=== PATIENT | female | born 1950 | race Caucasian/White ===

== ENCOUNTER 2016-12-06 15:44 | Emergency (ER) | payer BC ==
[~2016-12-06] VITALS: Ht 167.6 cm; Wt 136.1 kg
[~2016-12-06 15:44] MED LIST: AMLO10TA2; CELE100C84; LEVO50TA6; OMEP20CA12; PIOG30TA26; TRIA1CAP4
--- OUTSIDE RECORDS SUMMARY | 2016-12-06 15:49 | XMS REPORT | Continuity of Care Document ---
Demographics Preferred Language Unknown Marital Status Unknown Zoroastrian Affiliation Unknown Race Unknown Ethnic Group Unknown Author Author [facility] Organization [facility] Address Unknown Phone Unavailable Allergies Active Description Code Type Severity Reaction Onset Reported/Identified Relationship to Patient Clinical Status Yes MYRTLE Inhibitors [id number] Drug Allergy Unknown N/A 06/16/2015 Yes Beta-Blockers (Beta-Adrenergic Bloc [id number] Drug Allergy Unknown N/A 06/16/2015 Yes EYE DROPS EYE DROPS Unknown N/A 06/16/2015 Yes floxacillin [id number] Drug Allergy Unknown N/A 06/16/2015 Yes potassium chloride [id number] Drug Allergy Unknown N/A 06/16/2015 Yes Scbtjgc-Ydv-Byu Reductase Inhibitor [id number] Drug Allergy Unknown N/A 06/16/2015 Medications Problems Date Dx Coded Attending Type Code Diagnosis Diagnosed By 06/16/2015 JESUS GONZALEZ, SHIRA Santoro Ot 250.00 06/16/2015 SHIRA LEE MD Ot V58.69 Procedures Results Encounters ACCT No. Visit Date/Time Discharge Status Pt. Type Provider Facility Loc./Unit Complaint [id number] 10/05/2013 19:45:00 2013 23:59:59 CLS Outpatient
[2016-12-06 16:34] LABS: BILIRUBIN,URINE NEGATIVE (NEGATIVE); KETONES,URINE NEGATIVE (NEGATIVE); LEUKOCYTE ESTERASE ,URINE 1+ (NEGATIVE); NITRITE,URINE NEGATIVE (NEGATIVE); PH,URINE 6 (5-9); PROTEIN,URINE NEGATIVE (NEGATIVE); UROBILINOGEN,URINE NORMAL (NORMAL)
[2016-12-06 16:35] LABS: BASOPHILS % (AUTO) 1 % (0-10); EOSINOPHILS # (AUTO) 0.1 10^3/uL (0.0-0.3); EOSINOPHILS % (AUTO) 1 % (0-10); LYMPHOCYTES # (AUTO) 1.6 X 10^3 (1.0-4.0); LYMPHOCYTES % (AUTO) 27 % (12-44); MEAN CORPUSCULAR HEMOGLOBIN 32 PG (25-34); MEAN CORPUSCULAR HGB CONC 33 G/DL (32-36); MEAN CORPUSCULAR VOLUME 95 FL (80-99); MEAN PLATELET VOLUME 10.3 FL (7.4-10.4); MONOCYTES # (AUTO) 0.4 X 10^3 (0.0-1.0); MONOCYTES % (AUTO) 8 % (0-12); NEUTROPHILS # (AUTO) 3.7 X 10^3 (1.8-7.8); NEUTROPHILS % (AUTO) 63 % (42-75); PLATELET COUNT 196 10^3/uL (130-400); RED CELL DISTRIBUTION WIDTH 13.3 % (10.0-14.5); WHITE BLOOD COUNT 5.8 10^3/uL (4.3-11.0)
[2016-12-06] MEDS ORDERED: LIDOCAINE 1% INJ 20 ML (XYLOCAINE) VIAL ONE (16:47)
[2016-12-06 16:50] LABS: SQUAMOUS EPITHELIAL CELL,UR 0-2 /HPF; WBC,URINE 0-2 /HPF
[2016-12-06 16:53] LABS: ALANINE AMINOTRANSFERASE 42 U/L (0-55); ALBUMIN 3.8 G/DL (3.2-4.5); ANION GAP 13 MMOL/L (5-14); ASPARTATE AMINO TRANSFERASE 33 U/L (5-34); BILIRUBIN,TOTAL 0.7 MG/DL (0.1-1.0); BLOOD UREA NITROGEN 10 MG/DL (7-18); BUN/CREATININE RATIO 13; CALCIUM 9.4 MG/DL (8.5-10.1); CARBON DIOXIDE 20 MMOL/L (21-32); CHLORIDE 103 MMOL/L (98-107); CREATININE SERUM 0.75 MG/DL (0.60-1.30); GFR ESTIMATED > 60; GLUCOSE 224 MG/DL (70-105); POTASSIUM 3.6 MMOL/L (3.6-5.0); SODIUM 136 MMOL/L (135-145); TOTAL PROTEIN 6.9 G/DL (6.4-8.2)
[2016-12-06 16:59] LABS: TROPONIN I < 0.30 NG/ML (<0.30)
[2016-12-06] MEDS ORDERED: SULF1TAB35 PO (17:12)
--- NOTE | 2016-12-06 17:12 | ED General ---
General Chief Complaint: Cardiac/General Problems Stated Complaint: DIZZINESS,POSSIBLE STAPH INFECTION Nursing Triage Note: PT CO OF PALPATIONS LAST NITE W CHEST FLUTTERING, NONE NOW,DENIES C/P. STATES HAS ABCESS ON BACK OF NECK FOR 2 YEARS Nursing Sepsis Screen: No Definite Risk Source of Information: Patient Exam Limitations: No Limitations History of Present Illness Time Seen by Provider: 17:08 Initial Comments To ER with reports of palpitations that began last night while standing in her kitchen. She felt as though her chest was fluttering. She denies chest pain or shortness of breath. She also reports that she's had a lump on the back of her neck but intermittently drains fluid. This is been the case about 2 years. She does not have a regular physician here, she sees a physician in [facility] every 6 months to refill her diabetic medications where she is formerly from. Timing/Duration: Intermittent Severity: Moderate Associated Systoms: Denies Symptoms Allergies and Home Medications Allergies Coded Allergies: MYRTLE Inhibitors (Unverified Allergy, Unknown, 06/16/15) Beta-Blockers (Beta-Adrenergic Bloc (Unverified Allergy, Unknown, 06/16/15) Hoflxqf-Hpl-Iyg Reductase Inhibitor (Unverified Allergy, Unknown, 06/16/15) floxacillin (Unverified Allergy, Unknown, 06/16/15) potassium chloride (Unverified Allergy, Unknown, 06/16/15) Uncoded Allergies: EYE DROPS (Allergy, Unknown, 06/16/15) Home Medications Amlodipine Besylate 10 Mg Tablet #90 (Reported) Celecoxib 100 Mg Capsule #180 (Reported) Levothyroxine Sodium 50 Mcg Tablet #90 (Reported) Omeprazole 20 Mg Capsule.dr #90 (Reported) Pioglitazone HCl 30 Mg Tablet #90 (Reported) Sulfamethoxazole/Trimethoprim 1 Each Tablet #14 1 EACH PO BID Prescribed by: BHAVNA MALIN on 12/06/16 1712 Triamterene/Hydrochlorothiazid 1 Each Capsule #90 (Reported) Constitutional: see HPI EENTM: see HPI Respiratory: no symptoms reported Cardiovascular: no symptoms reported Genitourinary: no symptoms reported Musculoskeletal: no symptoms reported Skin: no symptoms reported Psychiatric/Neurological: No Symptoms Reported Hematologic/Lymphatic: No Symptoms Reported Past Okrvwph-Xuduan-Jztdkb Hx Patient Social History Alcohol Use: Denies Use Recreational Drug Use: No Smoking Status: Never a Smoker Recent Foreign Travel: No Contact w/Someone Who Travel: No Recent Infectious Disease Expo: No Recent Hopitalizations: No Surgeries HX Surgeries: Yes (lypoma(toe, thigh, neck)) Surgeries: Appendectomy, Breast, Eye Surgery, Gallbladder, Hysterectomy, Orthopedic Respiratory Hx Respiratory Disorders: Yes Respiratory Disorders: Sleep Apnea Cardiovascular Hx Cardiac Disorders: Yes Cardiac Disorders: High Cholesterol, Hypertension Neurological Hx Neurological Disorders: No Reproductive System Hx 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 Genitourinary Hx Genitourinary Disorders: No Gastrointestinal Hx Gastrointestinal Disorders: Yes Gastrointestinal Disorders: Gastroesophageal Reflux Musculoskeletal Hx Musculoskeletal Disorders: No Endocrine Hx Endocrine Disorders: Yes Endocrine Disorders: Hypothyroidsim, Diabetes, Non-Insulin dep HEENT HX ENT Disorders: Yes HEENT Disorders: Cataract Cancer Hx Cancer: No Psychosocial Hx Psychiatric Problems: No Integumentary HX Skin/Integumentary Disorder: No Blood Transfusions Hx Blood Disorders: No Physical Exam Vital Signs Vital Sign - Last 12Hours 12/06/16 15:50 Temp 97.0 Pulse 88 Resp 20 B/P 181/93 Pulse Ox 96 Capillary Refill : Less Than 3 Seconds General Appearance: No Apparent Distress WD/WN Eyes: Bilateral Eye EOMI, Bilateral Eye Normal Inspection, Bilateral Eye PERRL HEENT: PERRL/EOMI TMs Normal Other (there is a mobile slightly inflamed marble -sized or slightly smaller nodule to the back of the neck that is expressing cottage cheese thick material when palpated.) Respiratory: No Accessory Muscle Use No Respiratory Distress Cardiovascular: Regular Rate, Rhythm Normal Peripheral Pulses Gastrointestinal: Non Tender Soft Extremity: Normal Capillary Refill Normal Inspection Neurologic/Psychiatric: Alert Oriented x3 No Motor/Sensory Deficits Skin: Normal Color Warm/Dry I&D : Progress Area cleaned with Betadine to the back of the neck. This was then anesthetized with 3 mL of 1 percent lidocaine without epinephrine. A horizontal incision was made almost a centimeter in length using a 15 blade scalpel. Blunt dissection down to the cyst. Curd-like material expressed. Cyst wall was removed with curved hemostats. Wound closed with one simple interrupted suture. Progress/Results/Core Measures Results/Orders Lab Results Laboratory Tests Test 12/06/16 16:15 Range/Units Alanine Aminotransferase (ALT/SGPT) 42 0-55 U/L Albumin 3.8 3.2-4.5 G/DL Alkaline Phosphatase 64 40-136 U/L Anion Gap 13 5-14 MMOL/L Aspartate Amino Transf (AST/SGOT) 33 5-34 U/L BUN/Creatinine Ratio 13 Basophils # (Auto) 0.0 0.0-0.1 10^3/uL Basophils (%) (Auto) 1 0-10 % Blood Urea Nitrogen 10 7-18 MG/DL Calcium Level 9.4 8.5-10.1 MG/DL Carbon Dioxide Level 20 L 21-32 MMOL/L Chloride Level 103 98-107 MMOL/L Creatinine 0.75 0.60-1.30 MG/DL Eosinophils # (Auto) 0.1 0.0-0.3 10^3/uL Eosinophils (%) (Auto) 1 0-10 % Estimat Glomerular Filtration Rate > 60 Glucose Level 224 H 70-105 MG/DL Hematocrit 43 35-52 % Hemoglobin 14.3 11.5-16.0 G/DL Lymphocytes # (Auto) 1.6 1.0-4.0 X 10^3 Lymphocytes (%) (Auto) 27 12-44 % Mean Corpuscular Hemoglobin 32 25-34 PG Mean Corpuscular Hemoglobin Concent 33 32-36 G/DL Mean Corpuscular Volume 95 80-99 FL Mean Platelet Volume 10.3 7.4-10.4 FL Monocytes # (Auto) 0.4 0.0-1.0 X 10^3 Monocytes (%) (Auto) 8 0-12 % Neutrophils # (Auto) 3.7 1.8-7.8 X 10^3 Neutrophils (%) (Auto) 63 42-75 % Platelet Count 196 130-400 10^3/uL Potassium Level 3.6 3.6-5.0 MMOL/L Red Blood Count 4.50 4.35-5.85 10^6/uL Red Cell Distribution Width 13.3 10.0-14.5 % Sodium Level 136 135-145 MMOL/L Thyroid Stimulating Hormone (TSH) 1.21 0.35-4.94 UIU/ML Total Bilirubin 0.7 0.1-1.0 MG/DL Total Protein 6.9 6.4-8.2 G/DL Troponin I < 0.30 <0.30 NG/ML Urine Bacteria NONE /HPF Urine Bilirubin NEGATIVE NEGATIVE Urine Casts NONE /LPF Urine Clarity CLEAR Urine Color YELLOW Urine Crystals NONE /LPF Urine Culture Indicated NO Urine Glucose (UA) NEGATIVE NEGATIVE Urine Ketones NEGATIVE NEGATIVE Urine Leukocyte Esterase 1+ H NEGATIVE Urine Mucus NEGATIVE /LPF Urine Nitrite NEGATIVE NEGATIVE Urine Protein NEGATIVE NEGATIVE Urine RBC NONE /HPF Urine RBC (Auto) NEGATIVE NEGATIVE Urine Specific [place] 1.015 L 1.016-1.022 Urine Squamous Epithelial Cells 0-2 /HPF Urine Urobilinogen NORMAL NORMAL MG/DL Urine WBC 0-2 /HPF Urine pH 6 5-9 White Blood Count 5.8 4.3-11.0 10^3/uL My Orders Orders-BHAVNA MALIN APRN Lidocaine 1% Injection (Xylocaine 1% Inj (12/06/16 16:47) Medications Given in ED Current Medications Medications Dose Ordered Sig/Ana Route Start Time Stop Time Status Last Admin Dose Admin Lidocaine HCl 20 ml STK-MED ONCE .ROUTE 12/06/16 16:47 12/06/16 16:49 DC 12/06/16 16:51 10 ML Vital Signs/I&O Vital Sign - Last 12Hours 12/06/16 12/06/16 15:50 17:35 Temp 97.0 Pulse 88 72 Resp 20 20 B/P 181/93 Pulse Ox 96 96 Blood Pressure Mean: 122 Departure Communication Progress Notes Patient also states that she has a nasal polyp and she would like to see an ear nose and throat physician for this. Impression Impression: Primary Impression: Sebaceous cyst Additional Impression: Palpitations Disposition: 01 HOME, SELF-CARE Condition: Stable Departure-Patient Inst. Decision time for Depature: 17:11 Referrals: HERMELINDO ROSE MD NO,LOCAL PHYSICIAN (PCP) Primary Care Physician Patient Instructions: Palpitations, SEBACEOUS CYST-I&D Add. Discharge Instructions: 1. Have the stitches removed the back your neck in 7 days. You may return here to the emergency room 2. Antibiotics as directed 3. Follow-up with a physician of your choosing to further evaluate the cause of your palpitations if you have him again. List provided for you. All discharge instructions reviewed with patient and/or family. Voiced understanding. Scripts Sulfamethoxazole/Trimethoprim (Bactrim Ds Tablet)1 Each Tablet1 Each PO BID #14 TAB Prov:BHAVNA MALIN APRN 12/06/16 BHAVNA MALIN APRN Dec 06, 2016 17:12
[2016-12-06 17:35] VITALS: BP 145/81
== END 2016-12-06 17:36 | disposition home or self-care (01) ==
LOC: EDUNIT# 15:44 → ER 15:46
DX: R00.2 Palpitations (principal); L72.3 Sebaceous cyst; E11.9 Type 2 diabetes mellitus without complications; I10 Essential (primary) hypertension; Z79.84 Long term (current) use of oral hypoglycemic drugs; Z79.899 Other long term (current) drug therapy
CPT/HCPCS: 10060; 36415; 80053; 81000; 84443; 84484; 85025; 93005

== ENCOUNTER 2016-12-14 17:06 | Emergency (ER) | payer BC ==
[~2016-12-14] VITALS: Ht 170.2 cm; Wt 90.7 kg
[~2016-12-14 17:06] MED LIST changes: +SULF1TAB35 PO
--- OUTSIDE RECORDS SUMMARY | 2016-12-14 17:10 | XMS REPORT | Continuity of Care Document ---
Demographics Preferred Language Unknown Marital Status Unknown Yarsani Affiliation Unknown Race Unknown Ethnic Group Unknown Author Author [facility] Organization [facility] Address Unknown Phone Unavailable Allergies Active Description Code Type Severity Reaction Onset Reported/Identified Relationship to Patient Clinical Status Yes MYRTLE Inhibitors [id number] Drug Allergy Unknown N/A 06/16/2015 Yes Beta-Blockers (Beta-Adrenergic Bloc [id number] Drug Allergy Unknown N/A 06/16/2015 Yes EYE DROPS EYE DROPS Unknown N/A 06/16/2015 Yes floxacillin [id number] Drug Allergy Unknown N/A 06/16/2015 Yes potassium chloride [id number] Drug Allergy Unknown N/A 06/16/2015 Yes Ngungrr-Mff-Hbc Reductase Inhibitor [id number] Drug Allergy Unknown N/A 06/16/2015 Medications Problems Date Dx Coded Attending Type Code Diagnosis Diagnosed By 06/16/2015 SHIRA LEE MD Ot 250.00 06/16/2015 SHIRA LEE MD Ot V58.69 12/07/2016 BHAVNA MALIN APRN Ot E11.9 TYPE 2 DIABETES MELLITUS WITHOUT COMPLIC 12/07/2016 BHAVNA MALIN APRN Ot I10 ESSENTIAL (PRIMARY) HYPERTENSION 12/07/2016 BHAVNA MALIN APRN Ot L72.3 SEBACEOUS CYST 12/07/2016 BHAVNA MALIN APRN Ot R00.2 PALPITATIONS 12/07/2016 BHAVNA MALIN APRN Ot Z79.84 FDC (CURRENT) USE OF ORAL HYPOGLYC 12/07/2016 BHAVNA MALIN APRN Ot 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 12/08/2016 BHAVNA MALIN APRN Ot E11.9 TYPE 2 DIABETES MELLITUS WITHOUT COMPLIC 12/08/2016 BHAVNA MALIN APRN Ot I10 ESSENTIAL (PRIMARY) HYPERTENSION 12/08/2016 BHAVNA MALIN APRN Ot L72.3 SEBACEOUS CYST 12/08/2016 BHAVNA MALIN APRN Ot R00.2 PALPITATIONS 12/08/2016 BHAVNA MALIN APRN Ot Z79.84 [facility] (CURRENT) USE OF ORAL HYPOGLYC 12/08/2016 BHAVNA MALIN COLOR STRAINER Ot Z79.899 OTHER [facility] (CURRENT) DRUG THERAPY Procedures Results Test Result Range Complete blood count (CBC) with automated white blood cell (WBC) differential - 12/06/16 16:15 Blood leukocytes automated count (number/volume) 5.8 10*3/ uL 4.3-11.0 Blood erythrocytes automated count (number/volume) 4.50 10*6 /uL 4.35-5.85 Venous blood hemoglobin measurement (mass/volume) 14.3 g/dL 11.5-16.0 Blood hematocrit (volume fraction) 43 % 35-52 Automated erythrocyte mean corpuscular volume 95 [foz_us] 80-99 Automated erythrocyte mean corpuscular hemoglobin (mass per erythrocyte) 32 pg 25-34 Automated erythrocyte mean corpuscular hemoglobin concentration measurement ( mass/volume) 33 g/dL 32-36 Automated erythrocyte distribution width ratio 13.3 % 10.0-14.5 Automated blood platelet count (count/volume) 196 10*3/uL 130-400 Automated blood platelet mean volume measurement 10.3 [foz_ us] 7.4-10.4 Automated blood neutrophils/100 leukocytes 63 % 42-75 Automated blood lymphocytes/100 leukocytes 27 % 12-44 Blood monocytes/100 leukocytes 8 % 0-12 Automated blood eosinophils/100 leukocytes 1 % 0-10 Automated blood basophils/100 leukocytes 1 % 0-10 Blood neutrophils automated count (number/volume) 3.7 10*3 1.8-7.8 Blood lymphocytes automated count (number/volume) 1.6 10*3 1.0-4.0 Blood monocytes automated count (number/volume) 0.4 10*3 0.0-1.0 Automated eosinophil count 0.1 10*3/uL 0.0-0.3 Automated blood basophil count (count/volume) 0.0 10*3/uL 0.0-0.1 Complete urinalysis with reflex to culture - 12/06/16 16:15 Urine color determination YELLOW NRG Urine clarity determination CLEAR NRG Urine pH measurement by test strip 6 5- 9 Specific gravity of urine by test strip 1.015 1.016-1.022 Urine protein assay by test strip, semi-quantitative NEGATIVE NEGATIVE Urine glucose detection by automated test strip NEGATIVE NEGATIVE Erythrocytes detection in urine sediment by light microscopy NEGATIVE NEGATIVE Urine ketones detection by automated test strip NEGATIVE NEGATIVE Urine nitrite detection by test strip NEGATIVE NEGATIVE Urine total bilirubin detection by test strip NEGATIVE NEGATIVE Urine urobilinogen measurement by automated test strip (mass/volume) NORMAL NORMAL Urine leukocyte esterase detection by dipstick 1+ NEGATIVE Automated urine sediment erythrocyte count by microscopy (number/high power field) NONE NRG Automated urine sediment leukocyte count by microscopy (number/high power field ) [HPF] NRG Bacteria detection in urine sediment by light microscopy NONE NRG Squamous epithelial cells detection in urine sediment by light microscopy 0-2 NRG Crystals detection in urine sediment by light microscopy NONE NRG Casts detection in urine sediment by light microscopy NONE NRG Mucus detection in urine sediment by light microscopy NEGATIVE NRG Complete urinalysis with reflex to culture NO NRG Comprehensive metabolic panel - 12/06/16 16:15 Serum or plasma sodium measurement (moles/volume) 136 mmol/ L 135-145 Serum or plasma potassium measurement (moles/volume) 3.6 mmol/L 3.6-5.0 Serum or plasma chloride measurement (moles/volume) 103 mmol /L 98-107 Carbon dioxide 20 mmol/L 21-32 Serum or plasma anion gap determination (moles/volume) 13 mmol/L 5-14 Serum or plasma urea nitrogen measurement (mass/volume) 10 mg/dL 7-18 Serum or plasma creatinine measurement (mass/volume) 0.75 mg /dL 0.60-1.30 Serum or plasma urea nitrogen/creatinine mass ratio 13 NRG Serum or plasma creatinine measurement with calculation of estimated glomerular filtration rate > NRG Serum or plasma glucose measurement (mass/volume) 224 mg/dL 70-105 Serum or plasma calcium measurement (mass/volume) 9.4 mg/dL 8.5-10.1 Serum or plasma total bilirubin measurement (mass/volume) 0.7 mg/dL 0.1-1.0 Serum or plasma alkaline phosphatase measurement (enzymatic activity/volume) 64 U/L 40-136 Serum or plasma aspartate aminotransferase measurement (enzymatic activity/ volume) 33 U/L 5-34 Serum or plasma alanine aminotransferase measurement (enzymatic activity/volume ) 42 U/L 0-55 Serum or plasma protein measurement (mass/volume) 6.9 g/dL 6.4-8.2 Serum or plasma albumin measurement (mass/volume) 3.8 g/dL 3.2-4.5 Serum or plasma troponin i.cardiac measurement (mass/volume) - 12/06/16 16:15 Serum or plasma troponin i.cardiac measurement (mass/volume) < ng/mL <0.30 THYROID STIMULATING HORMONE - 12/06/16 16:15 THYROID STIMULATING HORMONE 1.21 u[iU]/mL 0.35-4.94 Encounters ACCT No. Visit Date/Time Discharge Status Pt. Type Provider Facility Loc./Unit Complaint [id number] 10/05/2013 19:45:00 2013 23:59:59 CLS Outpatient
== END 2016-12-14 17:23 | disposition home or self-care (01) ==
LOC: EDUNIT# 17:06 → ER 17:07
DX: S11.91XD Laceration without foreign body of unspecified part of neck, subsequent encounter (principal)

== ENCOUNTER 2017-03-12 19:17 | Emergency (ER) | payer MEDICARE, BC ==
[~2017-03-12] VITALS: Ht 167.6 cm; Wt 133.8 kg
--- NOTE | 2017-03-12 21:04 | ED Integumentary General ---
General Chief Complaint: Skin/Wound Problems Stated Complaint: R MID CALF SPIDER BITE Nursing Triage Note: PT TO ED 10 W/ C/O POSS SPIDER BITE TO RLE ONSET YESTERDAY, WORSE TODAY. REPORTS SHE WAS MOWING AT HER MOTHERS HOME ET SHE HAS A LOT OF SPIDERS. NO OTHER C/O VOICED Source: patient Exam Limitations: no limitations History of Present Illness Time seen by provider: 21:04 Initial Comments 66-year-old female patient presents to the emergency department complains of a possible spider bite to the right lower extremity beginning yesterday. Today she reports increased itching, mild pain, and erythema. States she was weed eating yesterday. Timing/Duration: yesterday, getting worse Location: extremities (RLE) Possible Cause: insect bite (possible spider bite) Modifying Factors: worse with scratching Allergies and Home Medications Allergies Coded Allergies: MYRTLE Inhibitors (Unverified Allergy, Unknown, 06/16/15) Beta-Blockers (Beta-Adrenergic Bloc (Unverified Allergy, Unknown, 06/16/15) Wzxwwya-Xgm-Hpp Reductase Inhibitor (Unverified Allergy, Unknown, 06/16/15) floxacillin (Unverified Allergy, Unknown, 06/16/15) potassium chloride (Unverified Allergy, Unknown, 06/16/15) Uncoded Allergies: EYE DROPS (Allergy, Unknown, 06/16/15) Home Medications Amlodipine Besylate 10 Mg Tablet, #90 (Reported) Celecoxib 100 Mg Capsule, #180 (Reported) Levothyroxine Sodium 50 Mcg Tablet, #90 (Reported) Omeprazole 20 Mg Capsule., #90 (Reported) Pioglitazone HCl 30 Mg Tablet, #90 (Reported) Sulfamethoxazole/Trimethoprim 1 Each Tablet, 1 EACH PO BID, #14 Prescribed by: BHAVNA MALIN on 12/06/16 1712 Triamterene/Hydrochlorothiazid 1 Each Capsule, #90 (Reported) Constitutional: No fever, No malaise EENTM: no symptoms reported Respiratory: no symptoms reported Cardiovascular: no symptoms reported Gastrointestinal: no symptoms reported Skin: see HPI, lesions Psychiatric/Neurological: Denies Headache, Denies Numbness, Denies Paresthesia , Denies Tingling, Denies Weakness All Other Systems Reviewed Negative Unless Noted: Yes (Negative excepted noted.) Past Rgeryuw-Rjfkoq-Dbadxs Hx Patient Social History Alcohol Use: Denies Use Recreational Drug Use: No Smoking Status: Never a Smoker Recent Foreign Travel: No Contact w/Someone Who Travel: No Recent Infectious Disease Expo: No Recent Hopitalizations: No Immunizations Up To Date Tetanus Booster (TDap): More than 5yrs Surgeries HX Surgeries: Yes (lypoma(toe, thigh, neck)) Surgeries: Appendectomy, Breast, Eye Surgery, Gallbladder, Hysterectomy, Orthopedic Respiratory Hx Respiratory Disorders: Yes Respiratory Disorders: Sleep Apnea Cardiovascular Hx Cardiac Disorders: Yes Cardiac Disorders: High Cholesterol, Hypertension Neurological Hx Neurological Disorders: No Reproductive System 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 Genitourinary Hx Genitourinary Disorders: No Gastrointestinal Hx Gastrointestinal Disorders: Yes Gastrointestinal Disorders: Gastroesophageal Reflux Musculoskeletal Hx Musculoskeletal Disorders: No Endocrine Hx Endocrine Disorders: Yes Endocrine Disorders: Hypothyroidsim, Diabetes, Non-Insulin dep HEENT HX ENT Disorders: Yes HEENT Disorders: Cataract Cancer Hx Cancer: No Psychosocial Hx Psychiatric Problems: No Integumentary HX Skin/Integumentary Disorder: No Blood Transfusions Hx Blood Disorders: No Reviewed Nursing Assessment Reviewed/Agree w Nursing PMH: Yes Family Medical History Significant Family History: No Pertinent Family Hx Physical Exam Vital Signs Vital Sign - Last 12Hours 03/12/17 19:56 Temp 97.6 Pulse 86 Resp 20 B/P (MAP) 190/90 Pulse Ox 94 O2 Delivery Room Air Capillary Refill : Less Than 3 Seconds General Appearance: WD/WN, no apparent distress Cardiovascular: normal peripheral pulses, regular rate, rhythm, no edema, no murmur Respiratory: lungs clear, normal breath sounds, no respiratory distress Neurologic/Psychiatric: alert, normal mood/affect, oriented x 3 Skin: normal color, warm/dry, other (erythema with central puncture wound, petechiae, and mild warmth of the rt lower lateral leg) Skin Problem Location: lower extremities (rt lower extremity) Skin Problem Character: erythema, petechial, tenderness, warm Progress/Results/Core Measures Results/Orders Vital Signs/I&O Vital Sign - Last 12Hours 03/12/17 19:56 Temp 97.6 Pulse 86 Resp 20 B/P (MAP) 190/90 Pulse Ox 94 O2 Delivery Room Air Blood Pressure Mean: 123 Departure Impression Impression: Primary Impression: Cellulitis Qualified Codes: L03.115 - Cellulitis of right lower limb Additional Impression: Spider bite Qualified Codes: T63.301A - Toxic effect of unspecified spider venom, accidental (unintentional), initial encounter Disposition: 01 HOME, SELF-CARE Condition: Improved Departure-Patient Inst. Decision time for Depature: 21:21 Referrals: NO,LOCAL PHYSICIAN (PCP/Family) Primary Care Physician Patient Instructions: Cellulitis (Skin Infection), Adult (DC), Spider Bites Add. Discharge Instructions: All discharge instructions reviewed with patient and/or family. Voiced understanding. Medications as instructed. Tylenol extra strength over-the- counter as directed for pain. Ibuprofen 800 mg by mouth every 8 hours as needed for pain. Ice pack or heating pad as needed. Shower with antibacterial soap. Elevate the right lower extremity on pillows above the level of the heart. Follow-up with your family practitioner for recheck this week. Call for appointment time tomorrow morning. Return to the emergency department for worsened pain, redness, fever, drainage, or any other concerns. Scripts Sulfamethoxazole/Trimethoprim (Bactrim Ds Tablet) 1 Each Tablet 1 EACH PO BID, #14 TAB 0 Refills Prov: DAVID DAIGLE 03/12/17 Dapsone (Dapsone) 25 Mg Tablet 50 MG PO BID, #20 TAB 0 Refills Prov: DAVID DAIGLE 03/12/17 Famotidine (Pepcid) 20 Mg Tablet 20 MG PO BID, #20 TAB 0 Refills Prov: DAVID DAIGLE 03/12/17 DAVID DAIGLE Mar 12, 2017 21:04
[2017-03-12] MEDS ORDERED: TETANUS,DIPTH,PERTUSS P/F (BOOSTRIX) 0.5 ML VIAL IM STA (21:17)
[2017-03-12] MEDS ORDERED: RX-TRIMETH/SULFA. 160-800 MG (BACTRIM DS) TAB PPK#2 PO STA (21:17)
[2017-03-12] MEDS ORDERED: FAMO-119 PO (21:23)
[2017-03-12] MEDS ORDERED: DAPS25TA2 PO (21:23)
[2017-03-12] MEDS ORDERED: SULF1TAB35 PO (21:23)
[2017-03-12 21:39] VITALS: BP 185/96
== END 2017-03-12 21:41 | disposition home or self-care (01) ==
LOC: EDUNIT# 19:17 → ER 19:18
DX: L03.115 Cellulitis of right lower limb (principal); I10 Essential (primary) hypertension; E11.9 Type 2 diabetes mellitus without complications; W57.XXXA Bitten or stung by nonvenomous insect and other nonvenomous arthropods, initial encounter; Y92.009 Unspecified place in unspecified non-institutional (private) residence as the place of occurrence of the external cause
CPT/HCPCS: 90715; 99282

== ENCOUNTER 2018-11-29 06:03 | Inpatient (IN) | payer MEDICARE, BC ==
[~2018-11-29] VITALS: Ht 167.6 cm; Wt 139.8 kg
[2018-11-29] VITALS (13 sets, daily range): BP systolic 152–178; BP diastolic 64–89
[~2018-11-29 06:03] MED LIST changes: -AMLO10TA2; +AMLO10TA7 PO; -CELE100C84; +CELE100C84 PO; +DAPS25TA2 PO; +FAMO-119 PO; -LEVO50TA6; +LEVO50TA6 PO; -OMEP20CA12; +OMEP20CA12 PO; -PIOG30TA26; +PIOG30TA71 PO; -TRIA1CAP4; +TRIA1CAP4 PO
--- OUTSIDE RECORDS SUMMARY | 2018-11-29 06:09 | XMS REPORT | Continuity of Care Document ---
Author Author [facility] Organization [facility] Address Unknown Phone Unavailable Allergies Active Description Code Type Severity Reaction Onset Reported/Identified Relationship to Patient Clinical Status Yes MYRTLE Inhibitors [id number] Drug Allergy Unknown N/A 06/16/2015 Yes Beta-Blockers (Beta-Adrenergic Bloc [id number] Drug Allergy Unknown N/A Yes EYE DROPS EYE DROPS Unknown N/A 06/16/2015 Yes floxacillin [id number] Drug Allergy Unknown N/A 06/16/2015 Yes potassium chloride [id number] Drug Allergy Unknown N/A 06/16/2015 Yes Xyhgixf-Rwh-Bdb Reductase Inhibitor [id number] Drug Allergy Unknown N/A Medications There is no data. Problems Date Dx Coded Attending Type Code Diagnosis Diagnosed By 06/16/2015 SHIRA LEE MD Ot 250.00 DIAB FIDELIA WO COMPL, TYPE II OR UNSPEC TY 06/16/2015 SHIRA LEE MD Ot V58.69 OT MED,LT,CURRENT USE 12/06/2016 BHAVNA MALIN APRN Ot E11.9 TYPE 2 DIABETES MELLITUS WITHOUT COMPLIC 12/06/2016 BHAVNA MALIN APRN Ot I10 ESSENTIAL (PRIMARY) HYPERTENSION 12/06/2016 BHAVNA MALIN APRN Ot L72.3 SEBACEOUS CYST 12/06/2016 BHAVNA MALIN APRN Ot R00.2 PALPITATIONS 12/06/2016 BHAVNA MALIN APRN Ot Z79.84 DETENTION (CURRENT) USE OF ORAL HYPOGLYC 12/06/2016 BHAVNA MALIN APRN Ot Z79.899 OTHER DETENTION (CURRENT) DRUG THERAPY 12/07/2016 BHAVNA MALIN APRN Ot E11.9 TYPE 2 DIABETES MELLITUS WITHOUT COMPLIC 12/07/2016 BHAVNA MALIN APRN Ot I10 ESSENTIAL (PRIMARY) HYPERTENSION 12/07/2016 BHAVNA MALIN APRN Ot L72.3 SEBACEOUS CYST 12/07/2016 MALIN, PETER J ENROBING MACHINE FEEDER Ot R00.2 PALPITATIONS 12/07/2016 BHAVNA MALIN ENROBING MACHINE FEEDER Ot Z79.84 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 OF ORAL HYPOGLYC 12/07/2016 BHAVNA MALIN ENROBING MACHINE FEEDER Ot Z79.899 OTHER DETENTION (CURRENT) DRUG THERAPY 12/08/2016 BHAVNA MALIN APRN Ot E11.9 TYPE 2 DIABETES MELLITUS WITHOUT COMPLIC 12/08/2016 BHAVNA MALIN APRN Ot I10 ESSENTIAL (PRIMARY) HYPERTENSION 12/08/2016 BHAVNA MALIN APRN Ot L72.3 SEBACEOUS CYST 12/08/2016 BHAVNA MALIN APRN Ot R00.2 PALPITATIONS 12/08/2016 BHAVNA MALIN APRN Ot Z79.84 PHYSICIAN OFFICE 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 OF ORAL HYPOGLYC 12/08/2016 BHAVNA MALIN APRN Ot Z79.899 OTHER DETENTION (CURRENT) DRUG THERAPY 12/14/2016 VIKASH GONZALEZ, KITA T Ot S11.91XD LACERATION W/O FOREIGN BODY OF UNSP PART 12/15/2016 VIKASH GONZALEZ, KITA T Ot S11.91XD LACERATION W/O FOREIGN BODY OF UNSP PART 12/16/2016 VIKASH GONZALEZ, KITA T Ot S11.91XD LACERATION W/O FOREIGN BODY OF UNSP PART 12/20/2016 VIKASH GONZALEZ, KITA T Ot S11.91XD LACERATION W/O FOREIGN BODY OF UNSP PART 02/14/2017 BHAVNA MALIN APRN Ot E11.9 TYPE 2 DIABETES MELLITUS WITHOUT COMPLIC 02/14/2017 BHAVNA MALIN APRN Ot I10 ESSENTIAL (PRIMARY) HYPERTENSION 02/14/2017 BHAVNA MALIN APRN Ot L72.3 SEBACEOUS CYST 02/14/2017 BHAVNA MALIN ENROBING MACHINE FEEDER Ot R00.2 PALPITATIONS 02/14/2017 BHAVNA MALIN ENROBING MACHINE FEEDER Ot Z79.84 DETENTION (CURRENT) USE OF ORAL HYPOGLYC 02/14/2017 BHAVNA MALIN ENROBING MACHINE FEEDER Ot Z79.899 OTHER PHYSICIAN OFFICE SPECIALIST (CURRENT) DRUG THERAPY 03/12/2017 DAVID BUENO Ot E11.9 TYPE 2 DIABETES MELLITUS WITHOUT COMPLIC 03/12/2017 DAVID BUENO Ot I10 ESSENTIAL (PRIMARY) HYPERTENSION 03/12/2017 DAVID BUENO Ot L03.115 CELLULITIS OF RIGHT LOWER LIMB 03/12/2017 DAVID BUENO Ot M79.661 PAIN IN RIGHT LOWER LEG 03/12/2017 DAVID BUENO Ot W57.XXXA BIT/STUNG BY NONVENOM INSECT OTH NONVE 03/12/2017 DAVID BUENO Ot Y92.[address] IN [facility] NON[facility] (PRIVATE Procedures There is no data. Results Test Result Range Complete blood count (CBC) with automated white blood cell (WBC) differential - 12/06/16 16:15 Blood leukocytes automated count (number/volume) 5.8 10*3/uL 4.3-11.0 Blood erythrocytes automated count (number/volume) 4.50 10*6/uL 4.35-5.85 Venous blood hemoglobin measurement (mass/volume) 14.3 [...] Automated blood platelet mean volume measurement 10.3 [foz_us] 7.4-10.4 Automated blood neutrophils/100 leukocytes 63 % [...] Urine pH measurement by test strip 6 5-9 Specific gravity of urine by test strip 1.015 1.016- 1.022 Urine protein assay by test strip, semi-quantitative [...] Serum or plasma sodium measurement (moles/volume) 136 mmol/L 135-145 Serum or plasma potassium measurement (moles/volume) 3.6 mmol/L 3.6-5.0 Serum or plasma chloride measurement (moles/volume) 103 mmol/L 98-107 Carbon dioxide 20 mmol/L 21-32 Serum or plasma anion gap determination (moles/volume) 13 mmol/L 5-14 Serum or plasma urea nitrogen measurement (mass/volume) 10 mg/dL 7-18 Serum or plasma creatinine measurement (mass/volume) 0.75 mg/dL 0.60-1.30 Serum or plasma urea nitrogen/creatinine mass [...] or plasma troponin i.cardiac measurement (mass/volume) < ng/ mL <0.30 THYROID STIMULATING HORMONE - 12/06/16 16:15 THYROID STIMULATING HORMONE 1.21 u[iU]/mL 0.35-4.94 Encounters ACCT No. Visit Date/Time Discharge Status Pt. Type Provider Facility Loc./Unit Complaint [id number] 03/12/2017 19:18:00 03/12/2017 21:41:00 DIS Emergency DAVID BUENO [facility] ER R MID CALF SPIDER BITE [id number] 12/14/2016 17:07:00 12/14/2016 17:23:00 DIS Emergency VIKASH GONZALEZ, KITA Fuentes [facility] ER REMOVAL OF STITCHES [id number] 12/06/2016 15:46:00 12/06/2016 17:36:00 DIS Emergency BHAVNA MALIN APRN [facility] ER DIZZINESS,POSSIBLE STAPH INFECTION [id number] 06/16/2015 19:05:00 06/16/2015 19:43:00 DIS Emergency SHIRA LEE MD [facility] ER ELEVATED BLOOD SUGAR [id number] 10/05/2013 19:24:00 10/05/2013 23:59:59 CLS Outpatient [id number] 11/29/2018 06:04:00 ACT Emergency LAURA LIND DO [facility] ER WEAKNESS [id number] 10/05/2013 19:45:00 10/05/2013 23:59:59 CLS Outpatient
[2018-11-29 06:40] LABS: BASOPHILS % (AUTO) 1 % (0-10); EOSINOPHILS # (AUTO) 0.1 10^3/uL (0.0-0.3); EOSINOPHILS % (AUTO) 2 % (0-10); HEMATOCRIT 41 % (35-52); HEMOGLOBIN 13.6 G/DL (11.5-16.0); LYMPHOCYTES # (AUTO) 1.8 X 10^3 (1.0-4.0); LYMPHOCYTES % (AUTO) 23 % (12-44); MEAN CORPUSCULAR HEMOGLOBIN 31 PG (25-34); MEAN CORPUSCULAR HGB CONC 33 G/DL (32-36); MEAN CORPUSCULAR VOLUME 95 FL (80-99); MEAN PLATELET VOLUME 10.5 FL (7.4-10.4); MONOCYTES # (AUTO) 0.5 X 10^3 (0.0-1.0); MONOCYTES % (AUTO) 7 % (0-12); NEUTROPHILS # (AUTO) 5.3 X 10^3 (1.8-7.8); NEUTROPHILS % (AUTO) 69 % (42-75); PLATELET COUNT 231 10^3/uL (130-400); RED CELL DISTRIBUTION WIDTH 13.9 % (10.0-14.5); WHITE BLOOD COUNT 7.8 10^3/uL (4.3-11.0)
[2018-11-29 06:48] LABS: FIBRIN DEGRADATION PRODUCTS 0.54 UG/ML (0.00-0.49); INR 0.9 (0.8-1.4); PROTHROMBIN TIME PATIENT 12.3 SEC (12.2-14.7)
[2018-11-29 06:58] LABS: ALANINE AMINOTRANSFERASE 39 U/L (0-55); ALBUMIN 4.2 GM/DL (3.2-4.5); ALKALINE PHOSPHATASE 75 U/L (40-136); BILIRUBIN,TOTAL 0.5 MG/DL (0.1-1.0); BUN/CREATININE RATIO 19; CALCIUM 9.9 MG/DL (8.5-10.1); CARBON DIOXIDE 21 MMOL/L (21-32); CHLORIDE 99 MMOL/L (98-107); CREATININE SERUM 0.93 MG/DL (0.60-1.30); GFR ESTIMATED 60; GLUCOSE 251 MG/DL (70-105); POTASSIUM 3.5 MMOL/L (3.6-5.0); SODIUM 136 MMOL/L (135-145); TOTAL PROTEIN 7.7 GM/DL (6.4-8.2)
[2018-11-29 07:12] LABS: FREE T4 (FREE THYROXINE) 1.25 NG/DL (0.70-1.48)
--- NOTE | 2018-11-29 07:39 | Diagnostic Imaging Report ---
PROCEDURE: CT head wo r/o stroke. INDICATION: Left weakness CT HEAD: Multiple contiguous axial CT images of the head were obtained. FINDINGS: Ventricles and sulci are within normal limits for size. There is no intracranial hemorrhage identified. There is no abnormal mass effect or shift of midline structures. IMPRESSION: Unremarkable CT of the head. Dictated by: Dictated on workstation # [id number]
[2018-11-29 08:00] LABS: BILIRUBIN,URINE NEGATIVE (NEGATIVE); CLARITY,URINE CLEAR; COLOR,URINE YELLOW; GLUCOSE, URINE (UA) 2+ (NEGATIVE); KETONES,URINE NEGATIVE (NEGATIVE); LEUKOCYTE ESTERASE ,URINE NEGATIVE (NEGATIVE); NITRITE,URINE NEGATIVE (NEGATIVE); PH,URINE 5 (5-9); PROTEIN,URINE NEGATIVE (NEGATIVE); UROBILINOGEN,URINE NORMAL (NORMAL)
[2018-11-29 08:06] LABS: BACTERIA,URINE NEGATIVE /HPF; SQUAMOUS EPITHELIAL CELL,UR RARE /HPF
--- NOTE | 2018-11-29 08:12 | Diagnostic Imaging Report ---
PROCEDURE: CT angiography of the head and CT angiography of the neck with and without contrast. TECHNIQUE: Contiguous noncontrast images were obtained from the skull base through the vertex. After intravenous contrast administration, helical CT angiography of the neck was performed. Source data was reformatted into multiple MIP projections. Delayed post contrast acquisition was also obtained. INDICATION: Left weakness, cerebrovascular accident. CTA NECK: There is a normal three-vessel branching pattern arising from the aortic arch without evidence of great vessel stenosis in the upper mediastinum. Common carotid arteries are widely patent. There is mild atherosclerotic disease at the carotid bifurcations. Internal carotid arteries are also widely patent but tortuous in the neck. Evaluation of vertebral arteries is limited due to suboptimal opacification. No definite filling defect or occlusion is identified. IMPRESSION: Suboptimal visualization of the great vessels in the neck without evidence of stenosis or occlusion. There is tortuosity and moderate atherosclerotic disease involving the internal carotid arteries. CTA HEAD: There is good opacification of anterior and middle cerebral arteries. The basilar artery has a normal appearance. Both posterior cerebral arteries are patent. There does appear to be possible attenuation of the distal right posterior cerebral artery. Incidental note is made of an approximately 1.2 cm probable meningioma in the medial right anterior frontal region which demonstrates homogeneous enhancement. Otherwise, no enhancing lesion is identified. IMPRESSION: Attenuation of distal right posterior cerebral artery may be related to atherosclerotic disease and stenosis, however, no definite large vessel occlusion, filling defect, aneurysm or vascular malformation is identified. Dictated by: Dictated on workstation # [id number]
--- NOTE | 2018-11-29 08:12 | Diagnostic Imaging Report ---
EXAMINATION: CT head perfusion with contrast. INDICATION: Left-sided weakness Routine images using the CT head perfusion protocol were obtained. The CT head exam performed earlier today failed to show any sign of an acute intracranial abnormality. On this study there is no sign of abnormal perfusion of the brain. There is an area of altered blood flow along the posterior aspect of the right occipital lobe. This of uncertain etiology although unlikely to be related to significant perfusion defect. IMPRESSION: 1. There is no altered perfusion within the brain. 2. CTA of the head and neck is pending for further study. Dictated on workstation # [id number]
--- NOTE | 2018-11-29 08:18 | ED Neurological Problem ---
General Chief Complaint: Neuro-Stroke Like Symptoms Stated Complaint: WEAKNESS Nursing Triage Note: TO ED VIA EMS WITH C/O DIZZINESS STARTING AT APPROX 0315 THIS AM WHEN WOKE UP AND STATES SHE HAD ONLY BEEN ASLEEP SINCE 0215. SAT UP ON SIDE OF BED TO GET UP TO THE BATHROOM AND FELT DIZZY, VERY DIZZY ON WAY TO BATHROOM USING WALL SUPPORT. DENIES BEING SICK RECENTLY, STATES SHE HAS BEEN HOT AND COLD AT TIMES, ALWAYS HAS DIARRHEA, BUT MORE FREQUENTLY LATELY. Nursing Sepsis Screen: No Definite Risk Source: patient Exam Limitations: no limitations History of Present Illness Date Seen by Provider: Nov 29, 2018 Time Seen by Provider: 06:04 Initial Comments This 68-year-old woman presents to the emergency room via EMS with complaints of left-sided weakness and dizziness. She woke at about 03:15 with these symptoms and had a difficult time getting to the bathroom. She can ambulate independently but is unsteady due to weakness in the left leg. Last known well time was 02:15 when patient went to sleep. The [place] stroke screening by EMS was negative. Stroke activation was paged. Patient had an NIH stroke score of 2 due to left lower extremity weakness. 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 However, this did not score out on the NIH stroke score. EMS states fingerstick blood sugar was 252. Patient denies any prior history of stroke. She is not anticoagulated. Allergies and Home Medications Allergies Coded Allergies: cinnamon (Verified Allergy, Severe, 11/29/18) DIFFICULTY BREATHING, ASTHMA ATTACK PER PATIENT MYRTLE Inhibitors (Unverified Allergy, Unknown, 06/16/15) Beta-Blockers (Beta-Adrenergic Bloc (Unverified Allergy, Unknown, 06/16/15) Ghbuqnz-Ixr-Tot Reductase Inhibitor (Unverified Allergy, Unknown, 06/16/15) floxacillin (Unverified Allergy, Unknown, 06/16/15) potassium chloride (Unverified Allergy, Unknown, 06/16/15) Uncoded Allergies: EYE DROPS (Allergy, Unknown, 06/16/15) Home Medications Acetaminophen 500 Mg Tablet, 1,000 MG PO BID, (Reported) TAKES 2 (500MG) TABLETS Amlodipine Besylate 10 Mg Tablet, 10 MG PO DAILY, (Reported) Celecoxib 100 Mg Capsule, 100 MG PO BID, (Reported) Hydrocodone/Acetaminophen 1 Each Tablet, 1 TAB PO Q6H PRN for PAIN-MODERATE, ( Reported) Levothyroxine Sodium 50 Mcg Tablet, 50 MCG PO DAILY, (Reported) Omeprazole 20 Mg Capsule.dr, 20 MG PO DAILY, (Reported) Pioglitazone HCl 30 Mg Tablet, 30 MG PO DAILY, (Reported) Pioglitazone HCl 30 Mg Tablet, 15 MG PO HS, (Reported) TAKES 1/2 (30MG) TABLET Triamterene/Hydrochlorothiazid 1 Each Capsule, 1 CAP PO DAILY, (Reported) Patient Home Medication List Home Medication List Reviewed: Yes Review of Systems Review of Systems Constitutional: no symptoms reported Eyes: No Symptoms Reported Ears, Nose, Mouth, Throat: no symptoms reported Respiratory: no symptoms reported Cardiovascular: no symptoms reported Gastrointestinal: no symptoms reported Genitourinary: no symptoms reported : No Musculoskeletal: no symptoms reported Skin: no symptoms reported Psychiatric/Neurological: See HPI Endocrine: No Symptoms Reported Hematologic/Lymphatic: No Symptoms Reported Past Soltuag-Pjoqiz-Uqdlaj Hx Past Med/Social Hx: Reviewed Nursing Past Med/Soc Hx Patient Social History Alcohol Use: Denies Use Recreational Drug Use: No Smoking Status: Never a Smoker Recent Foreign Travel: No Contact w/Someone Who Travel: No Recent Infectious Disease Expo: No Recent Hopitalizations: No Physical Abuse: No Sexual Abuse: No Mistreated: No Fear: No Immunizations Up To Date Tetanus Booster (TDap): More than 5yrs Past Medical History Surgeries: Yes (lypoma(toe, thigh, neck), SPHINCTERECTOMY) Appendectomy, Breast, Eye Surgery, Gallbladder, Hysterectomy, Orthopedic Respiratory: Yes Sleep Apnea Currently Using CPAP: Yes Cardiac: Yes High Cholesterol, Hypertension Neurological: No 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 oz. 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 nml as tested, alert, normal mood/affect, oriented x 3 Crainal Nerves: normal hearing, normal speech, PERRL Coordination/Gait: normal finger to nose, abnormal gait (short shuffled gait) Motor/Sensory: no sensory deficit, weak motor strength LUE (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 but can move the limb against gravity), weak motor strength LLE ( minimal movement against gravity of the left lower extremity) Skin: normal color, warm/dry Stroke NIH Stroke Scale Assessment Level of Consciousness: 0=Alert (0), Level of Consciousness-Questions: 0= Answers both month/age (0), LOC Commands: 0=Performs both tasks (0), Visual Proctor: 0=No visual loss (0), Facial Movement (Facial Paresis): 0=Normal symmetrical mnt (0), Motor Function-Arms Right: 0=No drift (0), Motor Function- Arms Left: 0=No drift (0), Motor Function-Legs Right: 2=Some effort/gravity (2) , Motor Function-Legs Left: 0=No drift (0), Limb Ataxia: 0=Absent (0), Sensory: 0=Normal:no loss (0), Best Language: 0=No aphasia (0), Dysarthria: 0=Normal (0) , Extinction & Inattention: 0=No abnormality (0), Total: 2 Progress/Results/Core Measures Results/Orders Lab Results Laboratory Tests Test 11/29/18 06:10 11/29/18 07:53 Range/Units White Blood Count 7.8 4.3-11.0 10^3/uL Red Blood Count 4.34 L 4.35-5.85 10^6/uL Hemoglobin 13.6 11.5-16.0 G/DL Hematocrit 41 35-52 % Mean Corpuscular Volume 95 80-99 FL Mean Corpuscular Hemoglobin 31 25-34 PG Mean Corpuscular Hemoglobin Concent 33 32-36 G/DL Red Cell Distribution Width 13.9 10.0-14.5 % Platelet Count 231 130-400 10^3/uL Mean Platelet Volume 10.5 H 7.4-10.4 FL Neutrophils (%) (Auto) 69 42-75 % Lymphocytes (%) (Auto) 23 12-44 % Monocytes (%) (Auto) 7 0-12 % Eosinophils (%) (Auto) 2 0-10 % Basophils (%) (Auto) 1 0-10 % Neutrophils # (Auto) 5.3 1.8-7.8 X 10^3 Lymphocytes # (Auto) 1.8 1.0-4.0 X 10^3 Monocytes # (Auto) 0.5 0.0-1.0 X 10^3 Eosinophils # (Auto) 0.1 0.0-0.3 10^3/uL Basophils # (Auto) 0.0 0.0-0.1 10^3/uL Prothrombin Time 12.3 12.2-14.7 SEC INR Comment 0.9 0.8-1.4 Activated Partial Thromboplast Time 28 24-35 SEC D-Dimer 0.54 H 0.00-0.49 UG/ML Sodium Level 136 135-145 MMOL/L Potassium Level 3.5 L 3.6-5.0 MMOL/L Chloride Level 99 98-107 MMOL/L Carbon Dioxide Level 21 21-32 MMOL/L Anion Gap 16 H 5-14 MMOL/L Blood Urea Nitrogen 18 7-18 MG/DL Creatinine 0.93 0.60-1.30 MG/DL Estimat Glomerular Filtration Rate 60 BUN/Creatinine Ratio 19 Glucose Level 251 H 70-105 MG/DL Calcium Level 9.9 8.5-10.1 MG/DL Corrected Calcium 9.7 8.5-10.1 MG/DL Total Bilirubin 0.5 0.1-1.0 MG/DL Aspartate Amino Transf (AST/SGOT) 28 5-34 U/L Alanine Aminotransferase (ALT/SGPT) 39 0-55 U/L Alkaline Phosphatase 75 40-136 U/L Troponin I < 0.028 <0.028 NG/ML Total Protein 7.7 6.4-8.2 GM/DL Albumin 4.2 3.2-4.5 GM/DL Thyroid Stimulating Hormone (TSH) 1.24 0.35-4.94 UIU/ML Free Thyroxine 1.25 0.70-1.48 NG/DL Urine Color YELLOW Urine Clarity CLEAR Urine pH 5 5-9 Urine Specific [place] 1.005 L 1.016-1.022 Urine Protein NEGATIVE NEGATIVE Urine Glucose (UA) 2+ H NEGATIVE Urine Ketones NEGATIVE NEGATIVE Urine Nitrite NEGATIVE NEGATIVE Urine Bilirubin NEGATIVE NEGATIVE Urine Urobilinogen NORMAL NORMAL MG/DL Urine Leukocyte Esterase NEGATIVE NEGATIVE Urine RBC (Auto) NEGATIVE NEGATIVE Urine RBC NONE /HPF Urine WBC NONE /HPF Urine Squamous Epithelial Cells RARE /HPF Urine Crystals NONE /LPF Urine Bacteria NEGATIVE /HPF Urine Casts NONE /LPF Urine Mucus NEGATIVE /LPF Urine Culture Indicated NO My Orders Orders - KITA SUH MD Cbc With Automated Diff (11/29/18 06:31) Protime With Inr (11/29/18 06:31) Partial Thromboplastin Time (11/29/18 06:31) Comprehensive Metabolic Panel (11/29/18 06:31) Fibrin Degradation Products (11/29/18 06:31) Troponin I (11/29/18 06:31) Ua Culture If Indicated (11/29/18 06:31) Chest 1 View, Ap/Pa Only (11/29/18 06:31) Ekg Tracing (11/29/18 06:31) Nothing By Mouth (11/29/18 Lunch) Accucheck Stat ONCE (11/29/18 06:31) Saline Lock/Iv-Start (11/29/18 06:31) Saline Lock/Iv-Start (11/29/18 06:31) Vital Signs Stroke Patient Q15M (11/29/18 06:31) Ct Head Wo-R/O Stroke (11/29/18 06:31) O2 (11/29/18 06:31) Intake & Output 06,14,22 (11/29/18 06:31) Monitor-Rhythm Ecg Trace Only (11/29/18 06:31) Dysphagia Screening Tool (11/29/18 06:31) Post Thrombolytic Adminstratio (11/29/18 06:31) Lipid Panel (11/30/18 06:00) Thyroid Stimulating Hormone (11/29/18 06:37) Free T4 (Free Thyroxine) (11/29/18 06:37) Ct Angio Head/Neck (11/29/18 06:44) Ct Head Perfusion W/ Contrast (11/29/18 06:44) Aspirin Tablet (Aspirin Tablet) (11/29/18 09:15) Medications Given in ED Current Medications Medications Dose Ordered Sig/Ana Route Start Time Stop Time Status Last Admin Dose Admin Aspirin 325 mg ONCE ONCE PO 11/29/18 09:15 11/29/18 09:16 DC 11/29/18 09:20 325 MG Vital Signs/I&O 11/29/18 06:03 Temp 99.8 Pulse 92 Resp 19 B/P (MAP) 180/99 (126) Blood Pressure Mean: 126 iStat Bedside Lab Testing Sodium (Na): 138.00 Potassium (K): 3.40 Chloride (CI): 100.00 TCO2: 27.00 Glucose (Glu): 255.00 Urea Nitrogen (BUN)/Urea: 19.00 Creatinine (Crea): 0.60 Anion Gap*: 15.00 FSBG Bedside Testing Finger Stick Blood Glucose: 255 Progress Progress Note #1: Time: 08:13 Progress Note Stroke activation was paged after initial assessment. NIH stroke score was 2 because of left leg weakness. I did have the patient get up and walk. She was able to ambulate and bear weight. She did use this provider for support with balance. Because patient was ambulating, the patient and I both had significant reservations about using TPA. I explained the risk and benefits of TPA including a possible risk up to 6 percent of potentially life-threatening bleed. We ultimately decided against TPA because of her ability to ambulate and the risk of complications. Patient also was nearing her 4.5 hour time limit for TPA administration. The stroke workup was pursued further with CT angiogram and CT perfusion scan. An i-STAT measurement of creatinine was 0.6. The CT studies were discussed with the radiologist at 07:58. There was concern for hypoperfusion in the right SITE SAFETY COORDINATOR. However, the CT perfusion scan demonstrated no measurable mismatch. Case was discussed with Dr. Feldman, stroke neurologist at [facility], who agreed there was no reason for transfer as this patient is not an IR candidate based on the CT perfusion scan results. We will pursue admission to the hospital to complete her workup with echocardiogram and MRI. She will be given aspirin if she passes her dysphagia screen. Progress Note #2: Time: 09:50 Progress Note Unfortunately patient's left upper extremity weakness has progressed. She now has significantly reduced function and has difficulty moving the left arm against gravity. Patient passed the dysphagia screen and was given aspirin. Case was reviewed with Dr. Santana who agrees with admission. She has asked for MRI and 2-D echocardiogram. Patient will be admitted to the ICU with stroke house orders. Transfer to the ICU is being delayed as post procedural patients are being moved out of the ICU. Initial ECG Impression Date: Nov 29, 2018 Initial ECG Impression Time: 07:52 Initial ECG Rate: 100 Initial ECG Rhythm: S.Tach Comment Sinus tachycardia with no ST elevation or depression. LVH by automated read with secondary repolarization abnormality. Diagnostic Imaging Diagonstic Imaging: CT Plain Films/CT/US/NM/MRI: head Comments CT head viewed by me and report reviewed. Discussed with the radiologist. See report below: NAME: NATALI AGUIAR REC#: [id number] PT STATUS: REG ER : 1950 PHYSICIAN: KITA SUH MD ADMIT DATE: 11/29/18/ER Signed Date of Exam: 11/29/18 CT HEAD WO-R/O STROKE PROCEDURE: CT head wo r/o stroke. INDICATION: Left weakness CT HEAD: Multiple contiguous axial CT images of the head were obtained. FINDINGS: Ventricles and sulci are within normal limits for size. There is no intracranial hemorrhage identified. There is no abnormal mass effect or shift of midline structures. IMPRESSION: Unremarkable CT of the head. Dictated by: Dictated on workstation # [id number] Dict: 11/29/1837 Trans: 11/29/18740 Interpreted by: BROOKLYN HARRIS MD Electronically signed by: BROOKLYN HARRIS MD 11/29/18740 Diagonstic Imaging: CT Plain Films/CT/US/NM/MRI: other (angiogram head and neck) Comments CT angiogram head and neck report reviewed. Discussed with the radiologist. See report below: NAME: NATALI AGUIAR [facility] REC#: [id number] PT STATUS: REG ER : 1950 PHYSICIAN: KITA SUH MD ADMIT DATE: 11/29/18/ER Draft Date of Exam:11/29/18 CT ANGIO HEAD/NECK PROCEDURE: CT angiography of the head and CT angiography of the neck with and without contrast. TECHNIQUE: Contiguous noncontrast images were obtained from the skull base through the vertex. After intravenous contrast administration, helical CT angiography of the neck was performed. Source data was reformatted into multiple MIP projections. Delayed post contrast acquisition was also obtained. INDICATION: Left weakness, cerebrovascular accident. CTA NECK: There is a normal three-vessel branching pattern arising from the aortic arch without evidence of great vessel stenosis in the upper mediastinum. Common carotid arteries are widely patent. There is mild atherosclerotic disease at the carotid bifurcations. Internal carotid arteries are also widely patent but tortuous in the neck. Evaluation of vertebral arteries is limited due to suboptimal opacification. No definite filling defect or occlusion is identified. IMPRESSION: Suboptimal visualization of the great vessels in the neck without evidence of stenosis or occlusion. There is tortuosity and moderate atherosclerotic disease involving the internal carotid arteries. CTA HEAD: There is good opacification of anterior and middle cerebral arteries. The basilar artery has a normal appearance. Both posterior cerebral arteries are patent. There does appear to be possible attenuation of the distal right posterior cerebral artery. Incidental note is made of an approximately 1.2 cm probable meningioma in the medial right anterior frontal region which demonstrates homogeneous enhancement. Otherwise, no enhancing lesion is identified. IMPRESSION: Attenuation of distal right posterior cerebral artery may be related to atherosclerotic disease and stenosis, however, no definite large vessel occlusion, filling defect, aneurysm or vascular malformation is identified. Dictated on workstation # [id number] Dict: 11/29/18 0749 Trans: 11/29/18 0812 [facility] [id number] Interpreted by: BROOKLYN HARRIS MD Diagonstic Imaging: CT Plain Films/CT/US/NM/MRI: head (CT perfusion scan) Comments CT perfusion scan viewed by me and report reviewed. Discussed with the stroke neurologist and the radiologist. See report below: NAME: NATALI AGUIAR [facility] REC#: [id number] PT STATUS: REG ER : 1950 PHYSICIAN: KITA SUH MD ADMIT DATE: 11/29/18/ER Draft Date of Exam:11/29/18 CT HEAD PERFUSION W/ CONTRAST EXAMINATION: CT head perfusion with contrast. INDICATION: Left-sided weakness Routine images using the CT head perfusion protocol were obtained. The CT head exam performed earlier today failed to show any sign of an acute intracranial abnormality. On this study there is no sign of abnormal perfusion of the brain. There is an area of altered blood flow along the posterior aspect of the right occipital lobe. This of uncertain etiology although unlikely to be related to significant perfusion defect. IMPRESSION: 1. There is no altered perfusion within the brain. 2. CTA of the head and neck is pending for further study. Dictated on workstation # [id number] Dict: 11/29/18805 Trans: 11/29/[address] [facility] [id number] Interpreted by: SASHA MAY MD Diagonstic Imaging: Xray Plain Films/CT/US/NM/MRI: chest Comments NAME: NATALI AGUIAR [facility] REC#: [id number] PT STATUS: REG ER : 1950 PHYSICIAN: KITA SUH MD ADMIT DATE: 11/29/18/ER Draft Date of Exam:11/29/18 CHEST 1 VIEW, AP/PA ONLY CLINICAL INDICATION: Patient with dizziness since this morning and bouts of hot and cold flashes and increased diarrhea. EXAM: Portable chest x-ray upright view. COMPARISONS: None. FINDINGS: There is mild amorphous increased airspace opacities in the right inferior perihilar region which may represent atelectasis versus infiltrate. Remainder of lungs are clear. There is no pleural effusion or pneumothorax. Upper limits of normal heart size. Pulmonary vasculature is within normal limits. There are hypertrophic spurs involving the spine. IMPRESSION: 1: There is mild right inferior perihilar atelectasis versus infiltrate. Follow up chest x-ray in 2-4 weeks is suggested to evaluate for interval resolution of this finding. 2: Upper limits of normal heart size for portable projection. Dictated on workstation # [id number] Dict: 11/29/18841 Trans: 11/29/1849 [id number] Interpreted by: ALYCIA BLANDON MD Departure Impression Primary Impression: CVA (cerebral vascular accident) Qualified Codes: I63.9 - Cerebral infarction, unspecified Additional Impression: Left-sided weakness Disposition: ADMITTED INPATIENT Condition: Unchanged Admissions Decision to Admit Reason: Admit from ER (General) Decision to Admit/Date: Nov 29, 2018 Time/Decision to Admit Time: 09:05 Departure-Patient Inst. Referrals: NO,LOCAL PHYSICIAN (PCP/Family) Primary Care Physician KITA SUH MD Nov 29, 2018 08:18
--- NOTE | 2018-11-29 08:50 | Diagnostic Imaging Report ---
CLINICAL INDICATION: Patient with dizziness since this morning and bouts of hot and cold flashes and increased diarrhea. EXAM: Portable chest x-ray upright view. COMPARISONS: None. FINDINGS: There is mild amorphous increased airspace opacities in the right inferior perihilar region which may represent atelectasis versus infiltrate. Remainder of lungs are clear. There is no pleural effusion or pneumothorax. Upper limits of normal heart size. Pulmonary vasculature is within normal limits. There are hypertrophic spurs involving the spine. IMPRESSION: 1: There is mild right inferior perihilar atelectasis versus infiltrate. Follow up chest x-ray in 2-4 weeks is suggested to evaluate for interval resolution of this finding. 2: Upper limits of normal heart size for portable projection. Dictated by: Dictated on workstation # [id number]
[2018-11-29] MEDS ORDERED: ASPIRIN 325 MG (5 GR) TABLET PO ONE (09:15)
[2018-11-29] MEDS ORDERED: NS IV 1000 ML 1,000 ML ONE (11:17)
[2018-11-29] MEDS ORDERED: BISACODYL 10 MG SUPP (DULCOLAX) PR PRN (13:15)
[2018-11-29] MEDS ORDERED: niCARdipine 50 MG/NS 250 ML IV DRIP IV SCH ×2 (13:15)
[2018-11-29] MEDS ORDERED: FLU QUADRIvalent (5+ YOA) 2018-2019 (AFLURIA) 0.5 ML IM ONE (13:15)
[2018-11-29] MEDS ORDERED: MILK OF MAGNESIA 400 MG/5 ML 30 ML UDC PO PRN (13:15)
--- NOTE | 2018-11-29 13:20 | NUR ---
Pt requested prayer; offered active listening. I affirmed to her God's presence and watch care, at which point pt because tearful and shared she is trusting God through her fears. She wept during our prayer together and afterward said, "I needed that. Thank you for coming." Pt does not have connections to a javy community at this time.
[2018-11-29] MEDS ORDERED: ACET-2267 PO (13:31)
[2018-11-29] MEDS ORDERED: HYDR-3816 PO (13:31)
[2018-11-29] MEDS ORDERED: PIOG30TA71 PO (13:31)
--- NOTE | 2018-11-29 13:33 | NUR ---
WENT OVER THE EXT MED HX WITH THE PATIENT AND SHE VERIFIED HOW SHE IS TAKING EACH MEDICATION. SHE TAKES 2 EXTRA STRENGTH TYLENOL OTC BID.
--- NOTE | 2018-11-29 13:50 | History & Physical-Hospitalist ---
History of Present Illness HPI/Chief Complaint Pt is a 68yoCF with a PMH of HTN, STEPH, NIDDMII, hypothyroidism who presented to the ER due to left sided weakness and dizziness. On presentation her NIH was a 2 and her last known well at at 0215 today. She states she went to sleep at 215 and awoke at 315 with this symptoms and had significant difficulty ambulating to the bathroom. She called her daughter who advised her to call 911. On arrival here she was found to have an NIH of 2. Due to her low NIH score discussions were had regarding TPA and hte risks vs benefits and she declined. She went for CTA that revealed a right sided [employer] deficit. Dr Espinoza discussed the case with the stroke neurologist at [facility] who agreed with no TPA and as there was no large vessel occlusion so no indication for transfer. Shortly after she developed worsening symptoms. She developed left arm weakness and left leg weakness with near complete paralysis. She was well outside the window for TPA by the point. Source: patient Exam Limitations: no limitations Date Seen 11/29/18 Time Seen by a Provider: 13:44 Attending Physician Annamaria Santana MD PCP No,Local Physician Referring Physician Date of Admission Nov 29, 2018 at 09:37 Home Medications & Allergies Home Medications Reviewed patient Home Medication Reconciliation performed by pharmacy medication reconciliations dental lab technician and/or nursing. Patients Allergies have been reviewed. Allergies Allergies Coded Allergies cinnamon (Verified Allergy, Severe, 11/29/18) DIFFICULTY BREATHING, ASTHMA ATTACK PER PATIENT MYRTLE Inhibitors (Unverified Allergy, Unknown, 06/16/15) Beta-Blockers (Beta-Adrenergic Bloc (Unverified Allergy, Unknown, 06/16/15) Ohtjdjn-Fvg-Azn Reductase Inhibitor (Unverified Allergy, Unknown, 06/16/15) floxacillin (Unverified Allergy, Unknown, 06/16/15) potassium chloride (Unverified Allergy, Unknown, 06/16/15) Uncoded Allergies EYE DROPS ( Allergy, Unknown, 06/16/15) Past Hmrjtvn-Nveeuv-Welumg Hx Past Med/Social Hx: Reviewed Nursing Past Med/Soc Hx Patient Social History Alcohol Use: Denies Use Recreational Drug Use: No Smoking Status: Never a Smoker Recent Foreign Travel: No Contact w/other who traveled: No Recent Hopitalizations: No Recent Infectious Disease Expo: No Immunizations Up To Date Tetanus Booster (TDap): More than 5yrs Past Medical History Surgeries: Appendectomy, Breast, Eye Surgery, Gallbladder, Hysterectomy, Orthopedic Currently Using CPAP: Yes Cardiac: High Cholesterol, Hypertension : No Reproductive: Yes Hysterectomy Gastrointestinal: Gastroesophageal Reflux Endocrine: Hypothyroidsim, Diabetes, Non-Insulin dep HEENT: Cataract, Glaucoma History of Blood Disorders: No Family History Reviewed Nursing Family Hx No Pertinent Family Hx Review of Systems Constitutional: No chills, No fever EENTM: No blurred vision, No double vision, No nose congestion, No throat pain Respiratory: short of breath Cardiovascular: No chest pain, No edema; palpitations Gastrointestinal: No abdominal pain, No constipation, No diarrhea, No nausea, No vomiting Genitourinary: No dysuria, No frequency Musculoskeletal: No joint pain, No muscle pain Skin: No lesions, No rash Psychiatric/Neurological: See HPI Physical Exam Physical Exam Vital Signs Vital Signs - First Documented 11/29/18 11/29/18 06:03 10:52 Temp 99.8 Pulse 92 Resp 19 B/P (MAP) 180/99 (126) Pulse Ox 95 O2 Delivery Room Air Capillary Refill : Less Than 3 Seconds Height, Weight, BMI Height: 5'6.00" Weight: 300lbs. 5.0oz. 136.761110dv; 48.5 BMI Method:Stated General Appearance: No Apparent Distress, Obese Neck: Normal Inspection, Supple Respiratory: Lungs Clear, No Accessory Muscle Use, No Respiratory Distress Cardiovascular: Regular Rate, Rhythm, No JVD, No Murmur, Normal Peripheral Pulses Gastrointestinal: Normal Bowel Sounds, Non Tender, Soft Extremity: Normal Capillary Refill, No Calf Tenderness, No Pedal Edema, Other ( varicose veins noted) Neurologic/Psychiatric: Alert, Oriented x3, Normal Mood/Affect; No Aphasia, No EOM Palsy, No Facial Droop; Motor Weakness (left upper and lower extremity, sensation intact), Other (dysequilibrium with sitting edge of bed) Skin: Normal Color, Warm/Dry Results Results/Procedures Labs Laboratory Tests 11/29/18 06:10 Patient resulted labs reviewed. Imaging: Reviewed Imaging Report Assessment/Plan Admission Diagnosis Acute CVA Admission Status: Inpatient Order (span 2 midnights) Reason for Inpatient Admission: Needs MRI, PT/OT, echo, monitoring on telemetry Diagnosis/Problems Diagnosis/Problems (1) Acute right [employer] stroke Assessment & Plan: CTA reveals r W[employer] deficit MRI ordered PT/OT ordered Monitor on telemetry Echo ordered Passed dysphagia screen Lipid Profile in the AM (2) Essential (primary) hypertension Status: Chronic Assessment & Plan: Allow for permissive hypertension givne acute CVA Treat for BP >220 only (3) Non-insulin dependent type 2 diabetes mellitus Status: Chronic Assessment & Plan: SSI On Actos at home (4) Hypothyroidism Status: Chronic Assessment & Plan: Continue home supplement Qualifiers: Hypothyroidism type: unspecified Qualified Codes: E03.9 - Hypothyroidism, unspecified Clinical Quality Measures DVT/VTE Risk/Contraindication: Risk Factor Score Per Nursin RFS Level Per Nursing on Admit: 4+=Very High ANNAMARIA SANTANA MD Nov 29, 2018 13:50
[2018-11-29] MEDS: NS IV 1000 ML 1,000 ML IV SCH ×2 (13:54→19:45)
--- NOTE | 2018-11-29 14:12 | Physical Therapy Evaluation ---
PT Evaluation-General Medical Diagnosis Admission Date Nov 29, 2018 at 09:37 Medical Diagnosis: CVA, L weakness Onset Date: Nov 29, 2018 Therapy Diagnosis Therapy Diagnosis: L hemiparesis, weakness, gait deviation, decreased mobility Height/Weight Height (Feet): 5 Height (Inches): 6.00 Weight (Pounds): 300 Weight (Ounces): 5.0 Precautions Precautions/Isolations: Fall Prevention, Standard Precautions Weight Bear Status Right Lower Extremity: Right Weight Bearing/Tolerated Left Lower Extremity: Left Weight Bearing/Tolerated Referral Physician: Dr. Santana Reason for Referral: Evaluation/Treatment Medical History Pertinent Medical History: DM, GERD, HTN, Hypothroidism Current History Pt to ED via EM with c/o dizziness and L weakness Reviewed History: Yes Social History Home: Single Level Current Living Status: Alone Prior/Core FIM Prior Level of Function Therapy Code Descriptions/Definitions Functional Garrison Measure: 0=Not Assessed/NA 4=Minimal Assistance 1=Total Assistance 5=Supervision or Setup 2=Maximal Assistance 6=Modified G[place] 3=Moderate Assistance 7=Complete Garrison Therapy Quality Codes: 6 Independent with activity with or without an assistive device 5 Patient requires set up or clean up by helper. Patient completes activity by themselves 4 Supervision or touching assist (CGA). [place] provide cues , steadying assist 3 The helper provides less than half the effort to complete the activity 2 The helper provides more than half the effort to complete the activity 1 Dependent. The helper does all the effort to complete an activity 7 Patient refused to complete or attempt activity 9 The patient did not perform the activity before the current illness or injury 88 Not attempted due to Medical conditions or safety concerns Functional Abilities and Goals: Independent: Patient completed the activities by him/herself, with or without an assistive device, with no assistance from a helper. Needed Some Help: Patient needed partial assistance from another person to complete activities. Dependent: A helper completed the activities for the patient. Unknown: Not Applicable: Bed Mobility: 7 Transfers (B,C,W/C) (FIM): 7 Gait: 7 Indoor Mobility (Ambulation): Independent Prior Devices Use: None PT Evaluation-Current Subjective Pt was in bed and agreed to PT. Pt reports she is no unable to move LUE or LLE at all. Pt/Family Goals Pt to return home. Objective Patient Orientation: Person, Place, Situation, Normal For Age Attachments: Curry Catheter, IV ROM/Strength ROM Lower Extremities RLE AROM WNL, LLE PROM knee flex/ext WNL, DF 0, PF WNL Strength Lower Extremities RLE (4/5), N/A LLE Integumentary/Posture Bowel Incontinence: No Bladder Incontinence: Curry Cath Neuromuscular (Tone, Coordination, Reflexes) Unable to elicit a reflex in LLE, tone is flaccid in LLE Sensory Vision: Functional Hearing: Functional Sensation Right Lower Extremit: Intact Sensation Left Lower Extremity: Intact Transfers Therapy Code Descriptions/Definitions Functional Garrison Measure: 0=Not Assessed/NA 4=Minimal Assistance 1=Total Assistance 5=Supervision or Setup 2=Maximal Assistance 6=Modified Garrison 3=Moderate Assistance 7=Complete G[place] Transfers (B, C, W/C) (FIM): 2 Scootin Rollin Supine to/from Sit: 2 Gait Mode of Locomotion: Walk Anticipated Mode of Locomotion: Both Balance Sitting Static: Poor Sitting Dynamic: Poor Assessment/Needs Pt able to get from supine to sit with min A, pt required mod A to get fully EOB. Pts sitting static balance is SBA with pt using RUE to remain upright. Pt dynamic sitting balance required CGA. Pt returned to supine with max A x2 and repositioned in bed. Pt has all needs met. Rehab Potential: Poor Post Rehab Potential-Barriers: progression of sxs, co-morbidities PT Short Term Goals Short Term Goals Time Frame: Dec 06, 2018 Transfers (B,C,W/C) (FIM): 2 Gait (FIM): 1 Distance (FIM): 1=up to 49 ft Gait Distance Comment: 5' Gait Level of Assist: 2 Gait Assistive Device: FWW, Walker Robby PT Nursing Home Goals Nursing Home Goals PT School Psychometrist Goals Time Frame: Dec 27, 2018 Transfers (B,C,W/C) (FIM): 4 Gait (FIM): 1 Gait distance (FIM): 1=up to 49 ft Distance: 25' Gait Level of Assist: 3 Gait Assistive Device: FWW, Walker Robby Wheelchair (FIM): 2 Wheelchair distance (FIM): 1=854-51 ft Distance: 100' Wheelchair Level of Assist: 4 PT Plan Problem List Problem List: Activity Tolerance, Functional Strength, Safety, Balance, Gait, Transfer, Bed Mobility, ROM Treatment/Plan Treatment Plan: Continue Plan of Care Treatment Plan: Bed Mobility, Education, Functional Activity Angelita, Functional Strength, Gait, Safety, Therapeutic Exercise, Transfers Treatment Duration: Dec 27, 2018 Frequency: 11 times per week Estimated Hrs Per Day: .25 hour per day Patient and/or Family Agrees t: Yes Safety Risks/Education Patient Education: Transfer Techniques, Correct Positioning, Safety Issues Teaching Recipient: Patient, Family Teaching Methods: Demonstration, Discussion Discharge Recommendations Therapy D/C Recommendations: Acute Rehab, Home w/ Family Support, Correction Placement, Assisted (TCU/NH) Equpiment Recommendations-D/C: Manual Wheelchair, Other, Please Explain (robby- walker) Time/GCodes Time In: 1335 Time Out: 1349 Total Billed Treatment Time: 14 Total Billed Treatment 1 visit EVM 14 min AGNES MILAN PT Nov 29, 2018 14:12
--- NOTE | 2018-11-29 15:37 | ST Dysphagia Evaluation ---
Speech Evaluation-General Medical Diagnosis CVA, L weakness Onset Date: Nov 29, 2018 Therapy Diagnosis Therapy Diagnosis: Oropharyngeal Dysphagia Precautions Precautions: Aspiration Precautions/Isolations: Fall Prevention, Standard Precautions Medical History Pertinent Medical History: DM, GERD, HTN, Hypothroidism Reviewed History: Yes Social History Current Living Status: Alone Speech PLF/Current-Dysphagia Prior Level of Function Patient lived alone and was independent for her daily needs. Subjective Patient was pleasant and cooperative during the Bedside Dysphagia Evaluation Cognitive Status Patient Orientation: Person, Place, Time, Situation Oral Motor Skills Dentition: Natural Current Food Consistancy: Dysphagia Soft, Pureed, Thin Liquids Ability to Follow Directions: Good Oral Expression Ability: No Impairment Face Facial Symmetry: Asymmetrical Very minimal left sided weakness. Oral-Facial Assessment Labial Seal Description: Weak Smile: Droops Left Puff Cheeks: Reduced Strength Lingual Protrusion: Abnormal Lingual ROM: Abnormal Lingual Strength: Abnormal Pharynx Velopharyngeal Move.: Weak on Left Volitional Dry Swallow: Yes Can Clear Throat Volitionally: Yes Dysphagia Evaluation Consistencies Presented: Thin Liquid, Mechanical Soft, Pureed Oral Phase: Reduced Oral Transit Patient stated she was scared she might choke when she took a small bite of pear. She was noted to masticate very thoroughly before swallow initiation. Pharyngeal Phase: Decreased A/P Bolus Transit, Delayed Swallow Patient exhibits good pharyngeal control. Dietary Recommendations: Mechanical Soft Liquid Recommendations: Thin Swallowing Precautions: Alternate Liquids/Solids, Chin Tuck, Double Swallow, Decreased Bolus 1/2 Tsp, Decreased Rate of Oral Intake, Liquids from Straw, Small Bites and Sips, Sitting Upright 90 Degrees, Sitting 90 Degrees 30 Post Intake, Right Tongue Sweep Dysphagia Evaluation Summary Patient is a pleasant 68 year old female who was referred for a Bedside Dysphagia Evaluation. The patient presented to the ED this am with CVA. She stated she was not given the TPA because the 4 hour time frame was near and at that time she was still moving her left arm and leg. She is now unable to utilize her left arm and leg and states they just feel numb. The patient was presented thin liquids via straw and a cup without difficulty. She was directed to take small sips which she was able to do. The patient was able to eat some applesauce and a small bite of pear without difficulty. The patient did chew the pear quite a while prior to initiating the swallow. She states she is afraid of choking and takes it very slow with intake. Patient will be on a Dysphagia II diet level with thin liquids. Nursing notified. The patient may be downgraded if nursing feels it is necessary or if the patient feels uncomfortable with the current diet level. Barriers to Learning New onset of CVA Speech Short Term Goals Short Term Goals Short Term Goals 1) The patient will demonstrate safe oral intake of least restrictive diet level without s/s of aspiration at 90% or greater. 2) The patient will utilize compensatory strategies as trained for the safest oral intake at 90% or greater with minimal cues. Speech Environmental Technician Goals Penitentiary Goals The patient will maintain adequate nutrition/hydration via safe effective swallow function with the least restrictive diet level. Speech-Plan Patient/Family Goals Patient/Family Goals: The patient plans to return home upon hospital discharge. Treatment Plan Speech Therapy Treatment Plan: Continue Plan of Care Patient will be receiving skilled ST services for dysphagia. Treatment Duration: Dec 07, 2018 Frequency: 5 times per week Estimated Hrs Per Day: .25 hour per day Rehab Potential: Good Barriers to Learning: New onset CVA Pt/Family Agrees to Plan: Yes Safety Risks/Education Teaching Recipient: Patient Teaching Methods: Discussion Response to Teaching: Verbalize Understanding Education Topics Provided: Safety with oral intake. Time Speech Therapy Time In: 14:15 Speech Therapy Time Out: 14:30 Total Billed Time: 15 Billed Treatment Time ErikaPAUL BETHANIA ST Nov 29, 2018 15:37
--- NOTE | 2018-11-29 15:47 | Pulmonary Consultation ---
History of Present Illness History of Present Illness Date of Consultation 11/29/18 15:42 Date of Admission Allergies and Home Medications Allergies Coded Allergies: cinnamon (Verified Allergy, Severe, 11/29/18) DIFFICULTY BREATHING, ASTHMA ATTACK PER PATIENT MYRTLE Inhibitors (Unverified Allergy, Unknown, 06/16/15) Beta-Blockers (Beta-Adrenergic Bloc (Unverified Allergy, Unknown, 06/16/15) Cbkrrzj-Fzb-Ctg Reductase Inhibitor (Unverified Allergy, Unknown, 06/16/15) floxacillin (Unverified Allergy, Unknown, 06/16/15) potassium chloride (Unverified Allergy, Unknown, 06/16/15) Uncoded Allergies: EYE DROPS (Allergy, Unknown, 06/16/15) Home Medications Acetaminophen 500 Mg Tablet, 1,000 MG PO BID, (Reported) TAKES 2 (500MG) TABLETS Amlodipine Besylate 10 Mg Tablet, 10 MG PO DAILY, (Reported) Celecoxib 100 Mg Capsule, 100 MG PO BID, (Reported) Hydrocodone/Acetaminophen 1 Each Tablet, 1 TAB PO Q6H PRN for PAIN-MODERATE, ( Reported) Levothyroxine Sodium 50 Mcg Tablet, 50 MCG PO DAILY, (Reported) Omeprazole 20 Mg Capsule.dr, 20 MG PO DAILY, (Reported) Pioglitazone HCl 30 Mg Tablet, 30 MG PO DAILY, (Reported) Pioglitazone HCl 30 Mg Tablet, 15 MG PO HS, (Reported) TAKES 1/2 (30MG) TABLET Triamterene/Hydrochlorothiazid 1 Each Capsule, 1 CAP PO DAILY, (Reported) Past Xedjypu-Utmdyy-Tifcie Hx Past Med/Social Hx: Reviewed Nursing Past Med/Soc Hx Patient Social History Alcohol Use: Denies Use Recreational Drug Use: No Smoking Status: Never a Smoker Recent Foreign Travel: No Contact w/Someone Who Travel: No Recent Infectious Disease Expo: No Recent Hopitalizations: No Physical Abuse: No Sexual Abuse: No Mistreated: No Fear: No Immunizations Up To Date Tetanus Booster (TDap): More than 5yrs Past Medical History Surgeries: Yes (lypoma(toe, thigh, neck), SPHINCTERECTOMY) Appendectomy, Breast, Eye Surgery, Gallbladder, Hysterectomy, Orthopedic Respiratory: Yes Sleep Apnea Currently Using CPAP: Yes Cardiac: Yes High Cholesterol, Hypertension Neurological: No : No 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 5.0oz. 136.620068cg; 48.5 BMI Method:Stated Exam Exam Vital Signs Date Time Temp Pulse Resp B/P (MAP) Pulse Ox O2 Delivery O2 Flow Rate FiO2 11/29/18 15:00 79 19 163/74 (103) 94 Room Air 11/29/18 14:00 86 19 178/89 (118) 94 Room Air 11/29/18 13:00 81 11/29/18 13:00 84 17 169/71 (103) 94 Room Air 11/29/18 12:18 93 Room Air 11/29/18 12:13 93 Room Air 11/29/18 12:00 75 19 155/64 (94) 94 Room Air 11/29/18 11:47 77 11/29/18 11:30 77 22 166/82 (110) 93 Room Air 11/29/18 11:30 78 22 166/82 93 11/29/18 10:52 83 20 174/76 (108) 95 Room Air 11/29/18 06:03 99.8 92 19 180/99 (126) Height & Weight Height: 5'6.00" Weight: 300lbs. 5.0oz. 136.850281we; 48.5 BMI Method:Stated General Appearance: No Apparent Distress, Obese Neck: Normal Inspection, Supple Respiratory: Lungs Clear, No Accessory Muscle Use, No Respiratory Distress Cardiovascular: Regular Rate, Rhythm, No JVD, No Murmur, Normal Peripheral Pulses Capillary Refill: Less Than 3 Seconds Gastrointestinal: non tender, soft Extremity: Normal Capillary Refill, No Calf Tenderness, No Pedal Edema, Other ( varicose veins noted) Neurologic/Psychiatric: Alert, Oriented x3, Normal Mood/Affect; No Aphasia, No EOM Palsy, No Facial Droop; Motor Weakness (left upper and lower extremity, sensation intact), Other (dysequilibrium with sitting edge of bed) Skin: Normal Color, Warm/Dry Results Lab Laboratory Tests 11/29/18 06:10 Assessment/Plan Assessment/Plan Acute right CVA -INH is currently 8 was 2 in the ED -Pt was outside of the window for TPA -Since symptoms are worsening I call [facility] stroke line and they still do not recommend any additional treatment or transfer. -Pt did pass dysphagia screen NIDDM II Hypothyroid -Synthroid Hypokalemia -Replace and Monitor KAREN WORTHINGTON DO Nov 29, 2018 15:47
--- NOTE | 2018-11-29 16:01 | Occupational Therapy Eval ---
OT Evaluation-General/PLF Medical Diagnosis Admission Date Nov 29, 2018 at 09:37 Medical Diagnosis: CVA, L weakness Onset Date: Nov 29, 2018 Therapy Diagnosis Therapy Diagnosis: weakness Height/Weight Height (Feet): 5 Height (Inches): 6.00 Weight (Pounds): 300 Weight (Ounces): 5.0 Precautions Precautions/Isolations: Fall Prevention, Standard Precautions Safety Interventions: Bed Exit Alarm Weight Bear Status Weight Bearing Restriction: Full Weight Bearing Location Restriction: L LE, R LE Referral Physician: Dr. Santana Referral Reason: Activity Tolerance, Self Care, Strengthening/ROM Medical History Pertinent Medical History: DM, GERD, HTN, Hypothroidism Current History Pt admitted to ER via EM with c/o dizziness & Left sided weakness. Reviewed History: Yes Social History Home: Single Level Current Living Status: Alone ADL-Prior Level of Function Therapy Code Descriptions/Definitions Functional [place] Measure: 0=Not Assessed/NA 4=Minimal Assistance 1=Total Assistance 5=Supervision or Setup 2=Maximal Assistance 6=Modified [place] 3=Moderate Assistance 7=Complete [place] Therapy Quality Codes: 6 Independent with activity with or without an assistive device 5 Patient requires set up or clean up by helper. Patient completes activity by themselves 4 Supervision or touching assist (CGA). Elton provide cues , steadying assist 3 The helper provides less than half the effort to complete the activity 2 The helper provides more than half the effort to complete the activity 1 Dependent. The helper does all the effort to complete an activity 7 Patient refused to complete or attempt activity 9 The patient did not perform the activity before the current illness or injury 88 Not attempted due to Medical conditions or safety concerns Functional Abilities and Goals: Independent: Patient completed the activities by him/herself, with or without an assistive device, with no assistance from a helper. Needed Some Help: Patient needed partial assistance from another person to complete activities. Dependent: A helper completed the activities for the patient. Unknown: Not Applicable: ADL PLOF Comments Pt was living with her daughter & was Independent in all self care tasks & ambulation without walker or cane. Self Care: Independent Functional Cognition: Independent DME/Equipment: Grab Bars OT Current Status Subjective Pt in bed , alert, oriented x 3 , cooperative & agree for OT Assessment . Pain Location: No Pain Reported Mental Status/Objective Patient Orientation: Person, Place, Time Attachments: Central Line, Curry Catheter, IV, Saline Lock, SCD's, Telemetry Current Glasses/Contacts: No Hearing Aids: No Dentures/Partials: No Hand Dominance: Right Upper Extremity ROM WFL Upper Extremity Coordination Intact Upper Extremity Sensation Intact Upper Extremity Strength MS in Rt UE -4/5 & Left UE 0/5 grossly graded. ADL-Treatment ADL-Current Pt participated in OT assessment. Pt needs Mod-max A in supine to sit in bed . Pt morbid Obesity . Very poor sitting & trunk balance . MS in Rt UE -4/5 & Lf UE 0/5 grossly graded. Sensation Intact. Therapy Code Descriptions/Definitions Functional [place] Measure: 0=Not Assessed/NA 4=Minimal Assistance 1=Total Assistance 5=Supervision or Setup 2=Maximal Assistance 6=Modified [place] 3=Moderate Assistance 7=Complete [place] Therapy Quality Codes: 6 Independent with activity with or without an assistive device 5 Patient requires set up or clean up by helper. Patient completes activity by themselves 4 Supervision or touching assist (CGA). [place] provide cues , steadying assist 3 The helper provides less than half the effort to complete the activity 2 The helper provides more than half the effort to complete the activity 1 Dependent. The helper does all the effort to complete an activity 7 Patient refused to complete or attempt activity 9 The patient did not perform the activity before the current illness or injury 88 Not attempted due to Medical conditions or safety concerns Education OT Patient Education: Correct positioning, Instructions to caregiver, Safety issues Teaching Recipient: Patient Teaching Methods: Demonstration Response to Teaching: Verbalize Understanding OT Short Term Goals Short Term Goals Time Frame: Dec 13, 2018 Transfers (B,C,W/C) (FIM): 2 Additional Short Term Goals: 1-Demonstrate ADL Tasks, 2-Verbalize Understanding , 3-ImproveStrength/Angelita 1=Demonstrate adherence to instructed precautions during ADL tasks. 2=Patient will verbalize/demonstrate understanding of assistive devices/ modifications for ADL. 3=Patient will improve strength/tolerance for activity to enable patient to perform ADL's. OT Longterm Goals Longterm Goals Time Frame: Dec 27, 2018 Eating (FIM): 7 Grooming(FIM): 7 Bathing(FIM): 0 Upper Body Dressing(FIM): 5 Lower Body Dressing(FIM): 4 Toileting(FIM): 5 Transfers (B,C,W/C) (FIM): 4 Toilet/Commode Transfer(FIM): 4 Tub Transfer(FIM): 0 Shower Transfer(FIM): 4 Additional Goals: 1-Demonstrate ADL Tasks, 2-Verbalize Understanding, 3- ImproveStrength/Angelita 1=Demonstrate adherence to instructed precautions during ADL tasks. 2=Patient will verbalize/demonstrate understanding of assistive devices/ modifications for ADL. 3=Patient will improve strength/tolerance for activity to enable patient to perform ADL's. OT Education/Plan Problem List/Assessment Assessment: Decreased Activ Tolerance, Decreased Safety Aware, Decreased UE Strength, Dependent Transfers, Impaired Bed Mobility, Impaired Funct Balance, Impaired Self-Care Skills Discharge Recommendations Plan/Recommendations: Continue POC Therapy D/C Recommendations: Home w/ Family Support Equpiment Recommendations-D/C: Extended Bath Bench, Extended Shower Sprayer, Pharmacy Director, Toilet Riser Patient/Family Goals To return home with daughter with AD. Treatment Plan/Plan of Care Treatment,Training & Education: Yes Patient would benefit from OT for education, treatment and training to promote independence in ADL's, mobility, safety and/or upper extremity function for ADL' s. Plan of Care: ADL Retraining, Caregiver Training, Functional Mobility, UE Funct Exercise/Act Treatment Duration: Dec 27, 2018 Frequency: 5 times per week Estimated Hrs Per Day: .25 hour per day Agreement: Yes Rehab Potential: Good Time/GCodes Start Time: 14:40 Stop Time: 14:55 Total Time Billed (hr/min): 15 Billed Treatment Time 1, EVM 15 Min IVIS KRAUSE OT Nov 29, 2018 16:01
[2018-11-29] MEDS: inSUlin ASPART (NovoLOG) 1 UNIT/0.01 ML (CHARGE PER UNIT) SC SCH (20:58)
[2018-11-29] MEDS: DOCUSATE SODIUM 100 MG (COLACE) CAP PO SCH (20:58)
--- NOTE | 2018-11-29 20:58 | NUR ---
Patient refused Colace d/t chronic diarrhea.
[2018-11-29] MEDS: ATORVASTATIN 80 MG (LIPITOR) TABLET PO SCH ×2 (21:22→21:30)
[2018-11-29] MEDS: ENOXAPARIN 40 MG/0.4 ML (LOVENOX) SYR SC SCH (21:22)
--- NOTE | 2018-11-29 21:30 | NUR ---
Patient refused Lipitor d/t Statin allergy.
[2018-11-30] VITALS (13 sets, daily range): BP systolic 116–159; BP diastolic 51–76
[2018-11-30] MEDS: ACETAMINOPHEN 325 MG TABLET PO PRN ×3 (00:19→18:39)
[2018-11-30 03:55] LABS: BASOPHILS % (AUTO) 1 % (0-10); EOSINOPHILS # (AUTO) 0.1 10^3/uL (0.0-0.3); EOSINOPHILS % (AUTO) 2 % (0-10); HEMATOCRIT 38 % (35-52); HEMOGLOBIN 12.3 G/DL (11.5-16.0); LYMPHOCYTES # (AUTO) 2.6 X 10^3 (1.0-4.0); LYMPHOCYTES % (AUTO) 40 % (12-44); MEAN CORPUSCULAR HEMOGLOBIN 31 PG (25-34); MEAN CORPUSCULAR HGB CONC 32 G/DL (32-36); MEAN CORPUSCULAR VOLUME 96 FL (80-99); MEAN PLATELET VOLUME 10.3 FL (7.4-10.4); MONOCYTES # (AUTO) 0.5 X 10^3 (0.0-1.0); MONOCYTES % (AUTO) 8 % (0-12); NEUTROPHILS # (AUTO) 3.1 X 10^3 (1.8-7.8); NEUTROPHILS % (AUTO) 49 % (42-75); PLATELET COUNT 207 10^3/uL (130-400); RED CELL DISTRIBUTION WIDTH 13.9 % (10.0-14.5); WHITE BLOOD COUNT 6.4 10^3/uL (4.3-11.0)
[2018-11-30 04:14] LABS: BUN/CREATININE RATIO 15; CALCIUM 8.6 MG/DL (8.5-10.1); CARBON DIOXIDE 24 MMOL/L (21-32); CHLORIDE 105 MMOL/L (98-107); CHOLESTEROL 293 MG/DL (< 200); CREATININE SERUM 0.68 MG/DL (0.60-1.30); GFR ESTIMATED > 60; GLUCOSE 158 MG/DL (70-105); HDL CHOLESTEROL 29 MG/DL (40-60); MAGNESIUM 2.1 MG/DL (1.8-2.4); PHOSPHORUS 2.8 MG/DL (2.3-4.7); SODIUM 141 MMOL/L (135-145); TRIGLYCERIDES 562 MG/DL (<150); VLDL CHOLESTEROL 112 MG/DL (5-40)
[2018-11-30] MEDS: inSUlin ASPART (NovoLOG) 1 UNIT/0.01 ML (CHARGE PER UNIT) SC SCH ×4 (04:18→21:08)
--- NOTE | 2018-11-30 04:53 | Pulmonary Progress Note ---
Subjective Time Seen by a Provider: 04:48 Subjective/Events-last exam acute CVA Sepsis Event Evaluation Height, Weight, BMI Height: 5'6.00" Weight: 300lbs. 5.0oz. 136.852127te; 48.5 BMI Method:Stated Exam Exam Vital Signs Date Time Temp Pulse Resp B/P (MAP) Pulse Ox O2 Delivery O2 Flow Rate FiO2 11/30/18 04:00 63 18 142/69 (93) 91 Room Air 11/30/18 03:45 92 NIV CPAP 11/30/18 03:45 98.9 11/30/18 03:00 64 18 157/76 (103) 91 Room Air 11/30/18 02:00 72 18 159/75 (103) 93 Room Air 11/30/18 01:00 70 19 149/72 (97) 93 Room Air 11/30/18 01:00 67 11/30/18 00:05 93 NIV CPAP 11/30/18 00:00 99.5 78 22 157/71 (99) 93 Room Air 11/29/18 23:35 99.5 Room Air 11/29/18 23:00 74 24 157/67 (97) 92 Room Air 11/29/18 22:00 75 20 164/76 (105) 93 Room Air 11/29/18 21:20 100.2 11/29/18 21:00 61 17 152/80 (104) 95 Room Air 11/29/18 20:00 72 19 157/69 (98) 93 Room Air 11/29/18 19:30 95 NIV CPAP 11/29/18 19:00 100.4 76 18 171/79 (109) 95 NIV CPAP 11/29/18 19:00 75 11/29/18 18:00 71 20 166/68 (100) 93 Room Air 11/29/18 17:00 79 19 157/66 (96) 92 Room Air 11/29/18 16:00 85 13 166/71 (102) 93 Room Air 11/29/18 16:00 95 Room Air 11/29/18 15:00 79 19 163/74 (103) 94 Room Air 11/29/18 14:00 86 19 178/89 (118) 94 Room Air 11/29/18 13:00 81 11/29/18 13:00 84 17 169/71 (103) 94 Room Air 11/29/18 12:18 93 Room Air 11/29/18 12:13 93 Room Air 11/29/18 12:00 75 19 155/64 (94) 94 Room Air 11/29/18 11:47 77 11/29/18 11:30 77 22 166/82 (110) 93 Room Air 11/29/18 11:30 78 22 166/82 93 11/29/18 10:52 83 20 174/76 (108) 95 Room Air 11/29/18 06:03 99.8 92 19 180/99 (126) I & O 11/30/18 07:00 Intake Total 3050 ml Output Total 3200 ml Balance -150 ml Height & Weight Height: 5'6.00" Weight: 300lbs. 5.0oz. 136.499104bo; 48.5 BMI Method:Stated General Appearance: No Apparent Distress, Obese Neck: Normal Inspection, Supple Respiratory: Lungs Clear, No Accessory Muscle Use, No Respiratory Distress Cardiovascular: Regular Rate, Rhythm, No JVD, No Murmur, Normal Peripheral Pulses Capillary Refill: Less Than 3 Seconds Gastrointestinal: non tender, soft Extremity: Normal Capillary Refill, No Calf Tenderness, No Pedal Edema, Other ( varicose veins noted) Neurologic/Psychiatric: Alert, Oriented x3, Normal Mood/Affect; No Aphasia, No EOM Palsy, No Facial Droop; Motor Weakness (left upper and lower extremity, sensation intact), Other (dysequilibrium with sitting edge of bed) Skin: Normal Color, Warm/Dry Results Lab Laboratory Tests 11/29/18 06:10 11/30/18 03:25 Assessment/Plan Assessment/Plan Acute right CVA -Pt was outside of the window for TPA -Pt did pass dysphagia screen -Echo and repeat MRI head is pending NIDDM II Hypothyroid -Synthroid Hypokalemia -Pt states she is allergic to K+ and is refusing K KAREN WORTHINGTON DO Nov 30, 2018 04:53
--- NOTE | 2018-11-30 05:19 | NUR ---
Patient refused Potassium replacement d/t allergy. Dr Raya and this singer songwriter spoke to patient about her low potassium.
[2018-11-30] MEDS ORDERED: KCL 20 MEQ TAB (K-DUR) PO SCH (06:00)
[2018-11-30] MEDS ORDERED: MAGNESIUM 1 GM/100 ML IVPB 100 ML IV SCH (06:00)
[2018-11-30] MEDS ORDERED: POTASSIUM CL 10MEQ/50ML IVPB 50 ML IV SCH (06:00)
[2018-11-30] MEDS: DOCUSATE SODIUM 100 MG (COLACE) CAP PO SCH ×2 (07:44→20:53)
--- NOTE | 2018-11-30 08:13 | Progress Note-Hospitalist ---
Subjective HPI/CC On Admission Date Seen by Provider: Nov 30, 2018 Time Seen by Provider: 08:05 Pt is a 68yoCF with a PMH of HTN, STEPH, NIDDMII, hypothyroidism who presented to the ER due to left sided weakness and dizziness. On presentation her NIH was a 2 and her last known well at at 0215 today. She states she went to sleep at 215 and awoke at 315 with this symptoms and had significant difficulty ambulating to the bathroom. She called her daughter who advised her to call 911. On arrival here she was found to have an NIH of 2. Due to her low NIH score discussions were had regarding TPA and hte risks vs benefits and she declined. She went for CTA that revealed a right sided EPIDEMIOLOGIST deficit. Dr Espinoza discussed the case with the stroke neurologist at [facility] who agreed with no TPA and as there was no large vessel occlusion so no indication for transfer. Shortly after she developed worsening symptoms. She developed left arm weakness and left leg weakness with near complete paralysis. She was well outside the window for TPA by the point. Subjective/Events-last exam Pt reports sleeping poorly last night but no other complaints. Still having significant weakness in left arm and leg. Discussed statin allergy with patient and she reports muscle aches with statin. Unsure of med or dose. Agreeable to trying low dose statin Objective Exam Vital Signs Vital Signs Date Time Temp Pulse Resp B/P (MAP) Pulse Ox O2 Delivery O2 Flow Rate FiO2 11/30/18 13:00 71 11/30/18 12:00 13 155/75 (101) 96 NIV CPAP 2.00 11/30/18 03:45 98.9 Capillary Refill : Less Than 3 Seconds General Appearance: No Apparent Distress, Obese Respiratory: Lungs Clear, No Accessory Muscle Use, No Respiratory Distress Cardiovascular: Regular Rate, Rhythm, No JVD, No Murmur, Normal Peripheral Pulses Gastrointestinal: Normal Bowel Sounds, Non Tender, Soft Extremity: No Calf Tenderness, Other (varicose veins noted) Neurologic/Psychiatric: Alert, Oriented x3, Normal Mood/Affect; No Aphasia, No Facial Droop; Motor Weakness (left upper 0/5 and lower extremity 1/5, sensation intact) Skin: Normal Color, Warm/Dry Results/Procedures Lab Laboratory Tests 11/30/18 03:25 Patient resulted labs reviewed. Imaging: Reviewed Imaging Report Assessment/Plan Assessment and Plan Assess & Plan/Chief Complaint Acute CVA Diagnosis/Problems Diagnosis/Problems (1) Acute right EPIDEMIOLOGIST stroke Assessment & Plan: CTA reveals r EPIDEMIOLOGIST deficit MRI ordered PT/OT ordered Monitor on telemetry Echo results pending Passed dysphagia screen Lipid panel markedly abnormal triglycerides 562, Total chol 293, LDL 124 Discussed statin medication with patient and she is agreeable to lower dose. Will start tonight (2) Essential (primary) hypertension Status: Chronic Assessment & Plan: Will resume amlodipine following MRI if BP remains elevated (3) Non-insulin dependent type 2 diabetes mellitus Status: Chronic Assessment & Plan: SSI On Actos at home (4) Hypothyroidism Status: Chronic Assessment & Plan: Continue home supplement Qualifiers: Hypothyroidism type: unspecified Qualified Codes: E03.9 - Hypothyroidism, unspecified (5) Hypokalemia Assessment & Plan: On HCTZ/triamterene at home, will hold Reports allergic to KCL so declined supplementation this AM Clinical Quality Measures DVT/VTE Risk/Contraindication: Risk Factor Score Per Nursin RFS Level Per Nursing on Admit: 4+=Very High ANNAMARIA GATES MD Nov 30, 2018 08:13
[2018-11-30] MEDS: RT-ALBUTEROL/IPRATROPIUM 3 ML (DUONEB) VIAL INH SCH ×4 (08:15→19:48)
[2018-11-30] MEDS: PANTOPRAZOLE 20 MG TABLET (PROTONIX) PO SCH (08:18)
[2018-11-30] MEDS: ENOXAPARIN 40 MG/0.4 ML (LOVENOX) SYR SC SCH ×2 (08:19→20:54)
[2018-11-30] MEDS: LEVOTHYROXINE 50 MCG (LEVOTHROID) TAB PO SCH (08:21)
[2018-11-30] MEDS: ASPIRIN E.C. 81 MG (ECOTRIN) TAB PO SCH (08:21)
--- NOTE | 2018-11-30 08:45 | Diagnostic Imaging Report ---
INDICATION: CVA. Shortness of breath with left-sided weakness. Comparison with 11/29/2018. FINDINGS: Portable chest shows lungs to be well-aerated and clear. Heart is upper limits of normal. There is no pulmonary edema. No pneumothorax or pleural effusion. IMPRESSION: Stable portable chest. Dictated by: Dictated on workstation # [id number]
--- NOTE | 2018-11-30 11:08 | Physical Therapy Daily Note ---
PT Daily Note-Current Subjective Patient in bed pre tx, agrees to PT, states she has pain in left leg but is unrated. Appearance Patient in bed post tx with nurse call, phone, tray, daughter in room. Patient needs to use the bedpan, nursing notified. Mental Status Patient Orientation: Person, Place, Situation Attachments: SCD's, Curry Catheter, IV Transfers Therapy Code Descriptions/Definitions Functional [place] Measure: 0=Not Assessed/NA 4=Minimal Assistance 1=Total Assistance 5=Supervision or Setup 2=Maximal Assistance 6=Modified [place] 3=Moderate Assistance 7=Complete [place] Therapy Quality Codes: 6 Independent with activity with or without an assistive device 5 Patient requires set up or clean up by helper. Patient completes activity by themselves 4 Supervision or touching assist (CGA). [place] provide cues , steadying assist 3 The helper provides less than half the effort to complete the activity 2 The helper provides more than half the effort to complete the activity 1 Dependent. The helper does all the effort to complete an activity 7 Patient refused to complete or attempt activity 9 The patient did not perform the activity before the current illness or injury 88 Not attempted due to Medical conditions or safety concerns Transfers (B, C, W/C) (FIM): 1 Scootin Rollin Supine to/from Sit: 1 Sit to/from Stand: 2 Patient can assist some with bed mobility and supine <-> sit but not enough to be considered max assist. Patient leans to the left some when sitting, more when standing. She says she feels like she is going to fall backwards when sitting. Patient stood twice for about 30 sec each time. Weight Bearing Right Lower Extremity: Right Weight Bearing/Tolerated Left Lower Extremity: Left Weight Bearing/Tolerated Treatments bed mobility, transfers, standing Assessment Current Status: Poor Progress poor balance and strength, because of patient's balance and weight transfers should probably be done with a jannette PT Short Term Goals Short Term Goals Time Frame: Dec 06, 2018 Transfers (B,C,W/C) (FIM): 2 Gait (FIM): 1 Distance (FIM): 1=up to 49 ft Gait Distance Comment: 5' Gait Level of Assist: 2 Gait Assistive Device: FWW, Walker Robby PT Hydrologic Engineer Goals Shelter Goals PT Shelter Goals Time Frame: Dec 27, 2018 Transfers (B,C,W/C) (FIM): 4 Gait (FIM): 1 Gait distance (FIM): 1=up to 49 ft Distance: 25' Gait Level of Assist: 3 Gait Assistive Device: FWW, Walker Robby Wheelchair (FIM): 2 Wheelchair distance (FIM): 6=621-13 ft Distance: 100' Wheelchair Level of Assist: 4 PT Plan Problem List Problem List: Activity Tolerance, Functional Strength, Safety, Balance, Gait, Transfer, Bed Mobility, ROM Treatment/Plan Treatment Plan: Continue Plan of Care Treatment Plan: Bed Mobility, Education, Functional Activity Angelita, Functional Strength, Gait, Safety, Therapeutic Exercise, Transfers Treatment Duration: Dec 27, 2018 Frequency: 11 times per week Estimated Hrs Per Day: .25 hour per day Patient and/or Family Agrees t: Yes Safety Risks/Education Patient Education: Transfer Techniques, Correct Positioning, Safety Issues Teaching Recipient: Patient Teaching Methods: Demonstration, Discussion Response to Teaching: Reinforcement Needed Time/GCodes Time In: 1010 Time Out: 1030 Total Billed Treatment Time: 20 Total Billed Treatment 1 visit FA 20' MEGHAN DYER PT Nov 30, 2018 11:07
--- NOTE | 2018-11-30 11:40 | Occupational Ther Daily Note ---
OT Current Status-Daily Note Subjective Pt alert, lying in bed. Pt agrees to therapy. No c/o pain at this time. Pt stated that she has B rotator cuff tears and R knee meniscus tear. Mental Status/Objective Patient Orientation: Person, Place, Time, Situation Therapy Code Descriptions/Definitions Functional [place] Measure: 0=Not Assessed/NA 4=Minimal Assistance 1=Total Assistance 5=Supervision or Setup 2=Maximal Assistance 6=Modified [place] 3=Moderate Assistance 7=Complete [place] Attachments: Curry Catheter, IV, Oxygen (CPAPA), Telemetry Other Treatment PROM to L UE. Pt anxious about rotator cuff hurting with movement. No pain during PROM. Limited movement noted in shldr ext, tricep, horizontal internal rotation, thumb flex/ext and finger flexion. Pt has light grasp with hand. After therapy, pt lying in bed with call light/phone. All needs met in room. OT Short Term Goals Short Term Goals Time Frame: Dec 13, 2018 Transfers (B,C,W/C) (FIM): 2 Additional Short Term Goals: 1-Demonstrate ADL Tasks, 2-Verbalize Understanding , 3-ImproveStrength/Angelita 1=Demonstrate adherence to instructed precautions during ADL tasks. 2=Patient will verbalize/demonstrate understanding of assistive devices/ modifications for ADL. 3=Patient will improve strength/tolerance for activity to enable patient to perform ADL's. OT Retirement Goals Castings Trimmer Goals Time Frame: Dec 27, 2018 Eating (FIM): 7 Grooming(FIM): 7 Bathing(FIM): 0 Upper Body Dressing(FIM): 5 Lower Body Dressing(FIM): 4 Toileting(FIM): 5 Transfers (B,C,W/C) (FIM): 4 Toilet/Commode Transfer(FIM): 4 Tub Transfer(FIM): 0 Shower Transfer(FIM): 4 Additional Goals: 1-Demonstrate ADL Tasks, 2-Verbalize Understanding, 3- ImproveStrength/Angelita 1=Demonstrate adherence to instructed precautions during ADL tasks. 2=Patient will verbalize/demonstrate understanding of assistive devices/ modifications for ADL. 3=Patient will improve strength/tolerance for activity to enable patient to perform ADL's. OT Education/Plan Problem List/Assessment Assessment: Decreased UE Strength, Impaired Bed Mobility, Impaired Coordination , Impaired Funct Balance, Impaired I ADL's, Impaired Self-Care Skills, Restricted Funct UE ROM Discharge Recommendations Plan/Recommendations: Continue POC Treatment Plan/Plan of Care Patient would benefit from OT for education, treatment and training to promote independence in ADL's, mobility, safety and/or upper extremity function for ADL' s. Plan of Care: ADL Retraining, Caregiver Training, Functional Mobility, UE Funct Exercise/Act Treatment Duration: Dec 27, 2018 Frequency: 5 times per week Estimated Hrs Per Day: .25 hour per day Agreement: Yes Rehab Potential: Good Time/GCodes Start Time: 11:20 Stop Time: 11:43 Total Time Billed (hr/min): 23 Billed Treatment Time 1 visit-NM 2 (23 min) MADHAVI MENA Nov 30, 2018 11:40
[2018-11-30] MEDS ORDERED: LOPERAMIDE 2 MG (IMODIUM) CAP PO PRN (14:15)
--- NOTE | 2018-11-30 14:55 | NUR ---
Inpatient rehab evaluation Received order to evaluate patient for admission to the inpatient rehab unit. Currently, the patient is dependent for bed mobility and sitting edge of bed for approximately 30 seconds with PT. Will continue to follow patient and monitor her progress. Will recheck early next week. Thank you for the referral.
--- NOTE | 2018-11-30 15:07 | Physical Therapy Progress Note ---
Therapy Progress Note PT treatment attempted but patient headed out of the room for a procedure. Will try back tomorrow. MEGHAN DYER PT Nov 30, 2018 15:07
--- NOTE | 2018-11-30 15:10 | NUR ---
Report given bedside to JUAN Cardoza on 4th floor.
--- NOTE | 2018-11-30 16:00 | Speech Therapy Daily Note ---
Speech Daily Progress Note Subjective Date Seen by Provider: Nov 30, 2018 Time Seen by Provider: 00:15 Patient had just been moved down from the ICU. Objective Patient is tolerating the diet level of Dysphagia 1 with thin liquids. Patient states she has bad tonsils and things get caught and she's afraid of choking. Assessment Assessment Current Status: Good Progress Treatment Plan Continue Plan of Care Speech Short Term Goals Short Term Goals Short Term Goals 1) The patient will demonstrate safe oral intake of least restrictive diet level without s/s of aspiration at 90% or greater. 2) The patient will utilize compensatory strategies as trained for the safest oral intake at 90% or greater with minimal cues. Speech Detention Goals Leather Sponger Goals The patient will maintain adequate nutrition/hydration via safe effective swallow function with the least restrictive diet level. Speech-Plan Patient/Family Goals Patient/Family Goals: Patient plans to return home with family support upon hospital discharge. Treatment Plan Speech Therapy Treatment Plan: Continue Plan of Care Patient will be on Dysphagia 1 level and will be reassessed on Monday. Treatment Duration: Dec 07, 2018 Frequency: 5 times per week Estimated Hrs Per Day: .25 hour per day Rehab Potential: Good Barriers to Learning: New onset CVA Pt/Family Agrees to Plan: Yes Safety Risks/Education Teaching Recipient: Patient, Family Teaching Methods: Discussion Response to Teaching: Verbalize Understanding Education Topics Provided: Safety strategies for safe oral intake. Time Speech Therapy Time In: 15:45 Speech Therapy Time Out: 16:00 Total Billed Time: 15 Billed Treatment Time 1FEDERICO MONTY Roland Nov 30, 2018 16:00
[2018-11-30] MEDS: ATORVASTATIN 20 MG (LIPITOR) TABLET PO SCH (20:53)
--- NOTE | 2018-11-30 20:58 | NUR ---
this rn spoke with this pt about the allergy to "statins" prior to pt taking Lipitor. pt stated that she spoke with dr. castellanos about this medication. pt stated that she & dr. castellanos discussed this medication and her potential for a reaction. pt stated that she agreed with dr. castellanos to start this medication. pt agreed to take the Lipitor.
[2018-11-30] MEDS: HYDROcodone/APAP 7.5 MG/325 MG (LORTAB, LORCET PLUS) TABLET PO PRN (23:44)
[2018-12-01 04:46] VITALS: BP 143/65
[2018-12-01] MEDS: HYDROcodone/APAP 7.5 MG/325 MG (LORTAB, LORCET PLUS) TABLET PO PRN (04:53)
[2018-12-01] MEDS: inSUlin ASPART (NovoLOG) 1 UNIT/0.01 ML (CHARGE PER UNIT) SC SCH ×4 (05:23→21:55)
[2018-12-01] MEDS: LEVOTHYROXINE 50 MCG (LEVOTHROID) TAB PO SCH (05:32)
[2018-12-01 05:55] LABS: BASOPHILS % (AUTO) 0 % (0-10); EOSINOPHILS # (AUTO) 0.2 10^3/uL (0.0-0.3); EOSINOPHILS % (AUTO) 2 % (0-10); HEMATOCRIT 39 % (35-52); HEMOGLOBIN 12.4 G/DL (11.5-16.0); LYMPHOCYTES # (AUTO) 2.3 X 10^3 (1.0-4.0); LYMPHOCYTES % (AUTO) 35 % (12-44); MEAN CORPUSCULAR HEMOGLOBIN 31 PG (25-34); MEAN CORPUSCULAR HGB CONC 32 G/DL (32-36); MEAN CORPUSCULAR VOLUME 97 FL (80-99); MONOCYTES # (AUTO) 0.5 X 10^3 (0.0-1.0); MONOCYTES % (AUTO) 8 % (0-12); NEUTROPHILS # (AUTO) 3.6 X 10^3 (1.8-7.8); NEUTROPHILS % (AUTO) 55 % (42-75); PLATELET COUNT 213 10^3/uL (130-400); WHITE BLOOD COUNT 6.7 10^3/uL (4.3-11.0)
[2018-12-01 06:09] LABS: BUN/CREATININE RATIO 12; CALCIUM 8.9 MG/DL (8.5-10.1); CARBON DIOXIDE 24 MMOL/L (21-32); CHLORIDE 105 MMOL/L (98-107); CREATININE SERUM 0.69 MG/DL (0.60-1.30); GFR ESTIMATED > 60; GLUCOSE 177 MG/DL (70-105); PHOSPHORUS 3.2 MG/DL (2.3-4.7); POTASSIUM 3.2 MMOL/L (3.6-5.0); SODIUM 140 MMOL/L (135-145)
--- NOTE | 2018-12-01 06:47 | Pulmonary Progress Note ---
Subjective Time Seen by a Provider: 06:45 Subjective/Events-last exam No respiratory complications noted. Sepsis Event Evaluation Height, Weight, BMI Height: 5'6.00" Weight: 304lbs. 5.0oz. 138.566506ch; 48.5 BMI Method:Stated Exam Exam Vital Signs Date Time Temp Pulse Resp B/P (MAP) Pulse Ox O2 Delivery O2 Flow Rate FiO2 12/01/18 04:46 99.2 67 18 143/65 (91) 95 NIV CPAP 2.00 12/01/18 01:00 66 11/30/18 23:47 98.6 77 18 156/65 (95) 95 NIV CPAP 2.00 11/30/18 23:39 77 11/30/18 21:00 Room Air 11/30/18 20:51 98.0 83 20 143/67 (92) 93 Room Air 11/30/18 19:48 94 Room Air 11/30/18 16:31 98.7 64 14 155/71 (99) 92 Room Air 11/30/18 13:00 71 11/30/18 12:00 72 13 155/75 (101) 96 NIV CPAP 2.00 11/30/18 08:15 95 NIV CPAP 2.00 11/30/18 08:00 95 NIV CPAP 2.00 11/30/18 08:00 54 19 116/51 (72) 94 NIV CPAP 2.00 11/30/18 07:00 67 11/30/18 07:00 66 34 138/65 (89) 94 NIV CPAP 2.00 I & O 12/01/18 07:00 Intake Total 1230 ml Output Total 2400 ml Balance -1170 ml Height & Weight Height: 5'6.00" Weight: 304lbs. 5.0oz. 138.550461oy; 48.5 BMI Method:Stated General Appearance: No Apparent Distress, Obese Respiratory: Lungs Clear, No Accessory Muscle Use, No Respiratory Distress Cardiovascular: Regular Rate, Rhythm, No JVD, No Murmur, Normal Peripheral Pulses Capillary Refill: Less Than 3 Seconds Gastrointestinal: non tender, soft Extremity: No Calf Tenderness, Other (varicose veins noted) Neurologic/Psychiatric: Alert, Oriented x3, Normal Mood/Affect; No Aphasia, No Facial Droop; Motor Weakness (left upper 0/5 and lower extremity 1/5, sensation intact) Skin: Normal Color, Warm/Dry Results Lab Laboratory Tests 11/30/18 03:25 12/01/18 05:45 Assessment/Plan Assessment/Plan Acute right CVA -Pt was outside of the window for TPA -Pt did pass dysphagia screen -Echo and repeat MRI head is pending 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 KAREN WORTHINGTON DO Dec 01, 2018 06:47
[2018-12-01 07:19] VITALS: BP 169/77
[2018-12-01] MEDS: RT-ALBUTEROL/IPRATROPIUM 3 ML (DUONEB) VIAL INH SCH ×2 (07:26→19:53)
--- NOTE | 2018-12-01 08:16 | Progress Note-Hospitalist ---
Subjective HPI/CC On Admission Date Seen by Provider: Dec 01, 2018 Time Seen by Provider: 08:11 Pt is a 68yoCF with a PMH of HTN, STEPH, NIDDMII, hypothyroidism who presented to the ER due to left sided weakness and dizziness. On presentation her NIH was a 2 and her last known well at at 0215 today. She states she went to sleep at 215 and awoke at 315 with this symptoms and had significant difficulty ambulating to the bathroom. She called her daughter who advised her to call 911. On arrival here she was found to have an NIH of 2. Due to her low NIH score discussions were had regarding TPA and hte risks vs benefits and she declined. She went for CTA that revealed a right sided PITCH WORKER deficit. Dr Espinoza discussed the case with the stroke neurologist at [facility] who agreed with no TPA and as there was no large vessel occlusion so no indication for transfer. Shortly after she developed worsening symptoms. She developed left arm weakness and left leg weakness with near complete paralysis. She was well outside the window for TPA by the point. Subjective/Events-last exam Pt reports feeling well today. Unable to get MRI due to weight restrictions. Feels leg movement and strength is getting better but arm is still very weak. Objective Exam Vital Signs Vital Signs Date Time Temp Pulse Resp B/P (MAP) Pulse Ox O2 Delivery O2 Flow Rate FiO2 12/01/18 07:26 95 Room Air 12/01/18 07:19 97.5 66 18 169/77 (107) 2.00 Capillary Refill : Less Than 3 Seconds General Appearance: No Apparent Distress, Obese Respiratory: Lungs Clear, No Accessory Muscle Use, No Respiratory Distress Cardiovascular: Regular Rate, Rhythm, No JVD, No Murmur, Normal Peripheral Pulses Gastrointestinal: Normal Bowel Sounds, Non Tender, Soft Extremity: Normal Capillary Refill, No Calf Tenderness, No Pedal Edema, Other ( varicose veins noted) Neurologic/Psychiatric: Alert, Oriented x3, Normal Mood/Affect; No Aphasia, No EOM Palsy, No Facial Droop; Motor Weakness (left upper 0/5 and lower extremity 2 /5, sensation intact), Other (dysequilibrium with sitting edge of bed) Skin: Normal Color, Warm/Dry Results/Procedures Lab Laboratory Tests 12/01/18 05:45 Patient resulted labs reviewed. Imaging: Reviewed Imaging Report Assessment/Plan Assessment and Plan Assess & Plan/Chief Complaint Acute CVA Diagnosis/Problems Diagnosis/Problems (1) Acute right PITCH WORKER stroke Assessment & Plan: CTA reveals r PITCH WORKER deficit MRI ordered but unable to obtain Continue PT/OT?ST Monitor on telemetry Echo shows normal EF no significant valvular abnormalities Lipid panel markedly abnormal, started on lower dose Lipitor due to history of myalgias Tolerated last night IRU consult placed (2) Essential (primary) hypertension Status: Chronic Assessment & Plan: Resume amlodipine (3) Non-insulin dependent type 2 diabetes mellitus Status: Chronic Assessment & Plan: SSI On Actos at home (4) Hypothyroidism Status: Chronic Assessment & Plan: Continue home supplement Qualifiers: Hypothyroidism type: unspecified Qualified Codes: E03.9 - Hypothyroidism, unspecified (5) Hypokalemia Assessment & Plan: On HCTZ/triamterene at home, will hold Reports allergic to KCL so declined supplementation Clinical Quality Measures DVT/VTE Risk/Contraindication: Risk Factor Score Per Nursin RFS Level Per Nursing on Admit: 4+=Very High ANNAMARIA GATES MD Dec 01, 2018 08:16
[2018-12-01] MEDS: ASPIRIN E.C. 81 MG (ECOTRIN) TAB PO SCH (08:31)
[2018-12-01] MEDS: ACETAMINOPHEN 325 MG TABLET PO PRN ×2 (08:31→17:16)
[2018-12-01] MEDS: ENOXAPARIN 40 MG/0.4 ML (LOVENOX) SYR SC SCH ×2 (08:32→21:55)
[2018-12-01] MEDS: PANTOPRAZOLE 20 MG TABLET (PROTONIX) PO SCH (08:32)
[2018-12-01] MEDS: CELECOXIB 100 MG (CeleBREX) CAP PO SCH ×2 (08:34→21:55)
[2018-12-01] MEDS: amLODIPine 10 MG (NORVASC) TAB PO SCH (08:34)
[2018-12-01] MEDS: DOCUSATE SODIUM 100 MG (COLACE) CAP PO SCH ×2 (08:36→21:55)
[2018-12-01] MEDS ORDERED: NON-FORMULARY MEDICATION 1 EA EA (Amlodipine Besylate 10 MG) PO SCH (09:00)
--- NOTE | 2018-12-01 09:04 | Physical Therapy Daily Note ---
PT Daily Note-Current Subjective Patient in bed pre tx, agrees to PT, has 5-6/10 pain "all over". Appearance Patient BTB post tx with nurse call, phone, tray, all needs met. Nurse notified that patient needs to use the bedpan. Mental Status Patient Orientation: Person, Place, Situation Attachments: Curry Catheter Transfers Therapy Code Descriptions/Definitions Functional Sherman Measure: 0=Not Assessed/NA 4=Minimal Assistance 1=Total Assistance 5=Supervision or Setup 2=Maximal Assistance 6=Modified Sherman 3=Moderate Assistance 7=Complete Sherman Therapy Quality Codes: 6 Independent with activity with or without an assistive device 5 Patient requires set up or clean up by helper. Patient completes activity by themselves 4 Supervision or touching assist (CGA). [place] provide cues , steadying assist 3 The helper provides less than half the effort to complete the activity 2 The helper provides more than half the effort to complete the activity 1 Dependent. The helper does all the effort to complete an activity 7 Patient refused to complete or attempt activity 9 The patient did not perform the activity before the current illness or injury 88 Not attempted due to Medical conditions or safety concerns Transfers (B, C, W/C) (FIM): 2 Scootin Rollin Supine to/from Sit: 2 Sit to/from Stand: 4 Much improvement with sit to stand, patient able to bear weight on left leg. Patient was able to stand at the side of the bed for a couple of minutes. Weight Bearing Right Lower Extremity: Right Weight Bearing/Tolerated Left Lower Extremity: Left Weight Bearing/Tolerated Gait Training Gait (FIM): 1 Distance: 2' Gait Level of Assist: 4 Gait Persons Needed: 1 Gait Assistive Device: Handheld Assist Patient was able to take a couple of steps toward the head of the bed, she was able to adduct her left leg to step. Treatments bed mobility and transfers, ambulation. Assessment Current Status: Fair Progress improved transfers, patient able to bear weight on left leg PT Short Term Goals Short Term Goals Time Frame: Dec 06, 2018 Transfers (B,C,W/C) (FIM): 2 Gait (FIM): 1 Distance (FIM): 1=up to 49 ft Gait Distance Comment: 5' Gait Level of Assist: 2 Gait Assistive Device: FWW, Walker Robby PT Wet Inspector Optical Glass Goals Wet Inspector Optical Glass Goals PT Prison Goals Time Frame: Dec 27, 2018 Transfers (B,C,W/C) (FIM): 4 Gait (FIM): 1 Gait distance (FIM): 1=up to 49 ft Distance: 25' Gait Level of Assist: 3 Gait Assistive Device: FWW, Walker Robby Wheelchair (FIM): 2 Wheelchair distance (FIM): 8=768-98 ft Distance: 100' Wheelchair Level of Assist: 4 PT Plan Problem List Problem List: Activity Tolerance, Functional Strength, Safety, Balance, Gait, Transfer, Bed Mobility, ROM Treatment/Plan Treatment Plan: Continue Plan of Care Treatment Plan: Bed Mobility, Education, Functional Activity Angelita, Functional Strength, Gait, Safety, Therapeutic Exercise, Transfers Treatment Duration: Dec 27, 2018 Frequency: 11 times per week Estimated Hrs Per Day: .25 hour per day Patient and/or Family Agrees t: Yes Safety Risks/Education Patient Education: Gait Training, Transfer Techniques, Correct Positioning, Safety Issues Teaching Recipient: Patient Teaching Methods: Demonstration, Discussion Response to Teaching: Reinforcement Needed Time/GCodes Time In: 0848 Time Out: 0900 Total Billed Treatment Time: 12 Total Billed Treatment 1 visit FA 12' MEGHAN DYER PT Dec 01, 2018 09:04
[2018-12-01 11:35] VITALS: BP 171/75
[2018-12-01 16:44] VITALS: BP 139/65
[2018-12-01 20:00] VITALS: BP 138/61
[2018-12-01] MEDS: ATORVASTATIN 20 MG (LIPITOR) TABLET PO SCH (21:55)
[2018-12-02 00:35] VITALS: BP 138/57
[2018-12-02] MEDS: HYDROcodone/APAP 7.5 MG/325 MG (LORTAB, LORCET PLUS) TABLET PO PRN ×2 (00:38→21:04)
--- OUTSIDE RECORDS SUMMARY | 2018-12-02 02:23 | XMS REPORT | Continuity of Care Document ---
Author Author [facility] Organization [facility] Address Unknown Phone Unavailable Allergies Active Description Code Type Severity Reaction Onset Reported/Identified Relationship to Patient Clinical Status Yes MYRTLE Inhibitors [id number] Drug Allergy Unknown N/A 06/16/2015 Yes Beta-Blockers (Beta-Adrenergic Bloc [id number] Drug Allergy Unknown N/A Yes EYE DROPS EYE DROPS Unknown N/A 06/16/2015 Yes floxacillin [id number] Drug Allergy Unknown N/A 06/16/2015 Yes potassium chloride [id number] Drug Allergy Unknown N/A 06/16/2015 Yes Spvasga-Mrq-Ghe Reductase Inhibitor [id number] Drug Allergy Unknown N/A Yes cinnamon [id number] Drug Allergy Severe N/A 11/29/2018 Medications There is no data. Problems Date [...] PALPITATIONS 12/06/2016 BHAVNA MALIN APRN Ot Z79.84 MANDREL CLEANER (CURRENT) USE OF ORAL HYPOGLYC 12/06/2016 BHAVNA MALIN APRN Ot Z79.899 OTHER USP (CURRENT) DRUG THERAPY 12/07/2016 BHAVNA MALNI APRN Ot E11.9 TYPE 2 DIABETES MELLITUS WITHOUT COMPLIC 12/07/2016 BHAVNA MALIN APRN Ot I10 ESSENTIAL (PRIMARY) HYPERTENSION 12/07/2016 MALIN, PETER J SHIP MATE Ot L72.3 SEBACEOUS CYST 12/07/2016 BHAVNA MALIN SHIP MATE Ot R00.2 PALPITATIONS 12/07/2016 BHAVNA MALIN SHIP MATE Ot Z79.84 USP (CURRENT) USE OF ORAL HYPOGLYC 12/07/2016 BHAVNA MALIN SHIP MATE Ot Z79.899 OTHER MANDREL CLEANER (CURRENT) DRUG THERAPY 12/08/2016 BHAVNA MALIN APRN Ot E11.9 TYPE 2 DIABETES MELLITUS WITHOUT COMPLIC 12/08/2016 BHAVNA MALIN APRN Ot I10 ESSENTIAL (PRIMARY) HYPERTENSION 12/08/2016 BHAVNA MALIN APRN Ot L72.3 SEBACEOUS CYST 12/08/2016 BHAVNA MALIN APRN Ot R00.2 PALPITATIONS 12/08/2016 BHAVNA MALIN APRN Ot Z79.84 MANDREL CLEANER (CURRENT) USE OF ORAL HYPOGLYC 12/08/2016 BHAVNA MALIN APRN Ot Z79.899 OTHER USP (CURRENT) DRUG THERAPY 12/14/2016 VIKASH GONZALEZ, KITA [...] Ot L72.3 SEBACEOUS CYST 02/14/2017 BHAVNA MALIN SHIP MATE Ot R00.2 PALPITATIONS 02/14/2017 BHAVNA MALIN SHIP MATE Ot Z79.84 USP (CURRENT) USE OF ORAL HYPOGLYC 02/14/2017 BHAVNA MALIN SHIP MATE Ot Z79.899 OTHER MANDREL CLEANER (CURRENT) DRUG THERAPY 03/12/2017 DAVID BUENO Ot E11.9 TYPE 2 DIABETES MELLITUS WITHOUT COMPLIC 03/12/2017 DAVID BUENO Ot I10 ESSENTIAL (PRIMARY) HYPERTENSION 03/12/2017 DAVID BUENO Ot L03.115 CELLULITIS OF RIGHT LOWER LIMB 03/12/2017 DAVID BUENO Ot M79.661 PAIN IN RIGHT LOWER LEG 03/12/2017 DAVID BUENO Ot W57.XXXA BIT/STUNG BY NONVENOM INSECT OTH NONVE 03/12/2017 DAVID BUENO Ot Y92.[address] IN UNSP NON-INSTITUT (PRIVATE Procedures There is no data. [...] 16:15 THYROID STIMULATING HORMONE 1.21 u[iU]/mL 0.35-4.94 Complete blood count (CBC) with automated white blood cell (WBC) differential - 11/29/18 06:10 Blood leukocytes automated count (number/volume) 7.8 10*3/uL 4.3-11.0 Blood erythrocytes automated count (number/volume) 4.34 10*6/uL 4.35-5.85 Venous blood hemoglobin measurement (mass/volume) 13.6 g/dL 11.5-16.0 Blood hematocrit (volume fraction) 41 % 35-52 Automated erythrocyte mean corpuscular volume 95 [foz_us] 80-99 Automated erythrocyte mean corpuscular hemoglobin (mass per erythrocyte) 31 pg 25-34 Automated erythrocyte mean corpuscular hemoglobin concentration measurement ( mass/volume) 33 g/dL 32-36 Automated erythrocyte distribution width ratio 13.9 % 10.0-14.5 Automated blood platelet count (count/volume) 231 10*3/uL 130-400 Automated blood platelet mean volume measurement 10.5 [foz_us] 7.4-10.4 Automated blood neutrophils/100 leukocytes 69 % 42-75 Automated blood lymphocytes/100 leukocytes 23 % 12-44 Blood monocytes/100 leukocytes 7 % 0-12 Automated blood eosinophils/100 leukocytes 2 % 0-10 Automated blood basophils/100 leukocytes 1 % 0-10 Blood neutrophils automated count (number/volume) 5.3 10*3 1.8-7.8 Blood lymphocytes automated count (number/volume) 1.8 10*3 1.0-4.0 Blood monocytes automated count (number/volume) 0.5 10*3 0.0-1.0 Automated eosinophil count 0.1 10*3/uL 0.0-0.3 Automated blood basophil count (count/volume) 0.0 10*3/uL 0.0-0.1 PT panel in platelet poor plasma by coagulation assay - 11/29/18 06:10 Prothrombin time (PT) in platelet poor plasma by coagulation assay 12.3 s 12.2-14.7 INR in platelet poor plasma or blood by coagulation assay 0.9 0.8-1.4 Activated partial thromboplastin time (aPTT) in platelet poor plasma bycoagulation assay - 11/29/18 06:10 Activated partial thromboplastin time (aPTT) in platelet poor plasma bycoagulation assay 28 s 24-35 Fibrin D-dimer FEU measurement in platelet poor plasma (mass/volume) - 06:10 Fibrin D-dimer FEU measurement in platelet poor plasma (mass/volume) 0.54 ug/mL 0.00-0.49 Comprehensive metabolic panel - 11/29/18 06:10 Serum or plasma sodium measurement (moles/volume) 136 mmol/L 135-145 Serum or plasma potassium measurement (moles/volume) 3.5 mmol/L 3.6-5.0 Serum or plasma chloride measurement (moles/volume) 99 mmol/L 98-107 Carbon dioxide 21 mmol/L 21-32 Serum or plasma anion gap determination (moles/volume) 16 mmol/L 5-14 Serum or plasma urea nitrogen measurement (mass/volume) 18 mg/dL 7-18 Serum or plasma creatinine measurement (mass/volume) 0.93 mg/dL 0.60-1.30 Serum or plasma urea nitrogen/creatinine mass ratio 19 NRG Serum or plasma creatinine measurement with calculation of estimated glomerular filtration rate 60 NRG Serum or plasma glucose measurement (mass/volume) 251 mg/dL 70-105 Serum or plasma calcium measurement (mass/volume) 9.9 mg/dL 8.5-10.1 Serum or plasma total bilirubin measurement (mass/volume) 0.5 mg/dL 0.1-1.0 Serum or plasma alkaline phosphatase measurement (enzymatic activity/volume) 75 U/L 40-136 Serum or plasma aspartate aminotransferase measurement (enzymatic activity/ volume) 28 U/L 5-34 Serum or plasma alanine aminotransferase measurement (enzymatic activity/volume ) 39 U/L 0-55 Serum or plasma protein measurement (mass/volume) 7.7 g/dL 6.4-8.2 Serum or plasma albumin measurement (mass/volume) 4.2 g/dL 3.2-4.5 CALCIUM CORRECTED 9.7 mg/dL 8.5-10.1 Serum or plasma troponin i.cardiac measurement (mass/volume) - 11/29/18 06:10 Serum or plasma troponin i.cardiac measurement (mass/volume) < ng/ mL <0.028 THYROID STIMULATING HORMONE - 11/29/18 06:10 THYROID STIMULATING HORMONE 1.24 u[iU]/mL 0.35-4.94 Serum or plasma thyroxine (T4) free measurement (mass/volume) - 11/29/18 06:10 Serum or plasma thyroxine (T4) free measurement (mass/volume) 1.25 ng/dL 0.70-1.48 Complete urinalysis with reflex to culture - 11/29/18 07:53 Urine color determination YELLOW NRG Urine clarity determination CLEAR NRG Urine pH measurement by test strip 5 5-9 Specific gravity of urine by test strip 1.005 1.016- 1.022 Urine protein assay by test strip, semi-quantitative NEGATIVE NEGATIVE Urine glucose detection by automated test strip 2+ NEGATIVE Erythrocytes detection in urine sediment by light microscopy NEGATIVE NEGATIVE Urine ketones detection by automated test strip NEGATIVE NEGATIVE Urine nitrite detection by test strip NEGATIVE NEGATIVE Urine total bilirubin detection by test strip NEGATIVE NEGATIVE Urine urobilinogen measurement by automated test strip (mass/volume) NORMAL NORMAL Urine leukocyte esterase detection by dipstick NEGATIVE NEGATIVE Automated urine sediment erythrocyte count by microscopy (number/high power field) NONE NRG Automated urine sediment leukocyte count by microscopy (number/high power field ) NONE NRG Bacteria detection in urine sediment by light microscopy NEGATIVE NRG Squamous epithelial cells detection in urine sediment by light microscopy RARE NRG Crystals detection in urine sediment by light microscopy NONE NRG Casts detection in urine sediment by light microscopy NONE NRG Mucus detection in urine sediment by light microscopy NEGATIVE NRG Complete urinalysis with reflex to culture NO NRG Capillary blood glucose measurement by glucometer (mass/volume) - 11/29/18 15: 14 Capillary blood glucose measurement by glucometer (mass/volume) 209 mg/dL 70-110 Capillary blood glucose measurement by glucometer (mass/volume) - 11/29/18 20: 32 Capillary blood glucose measurement by glucometer (mass/volume) 170 mg/dL 70-110 Encounters ACCT No. Visit Date/Time Discharge Status Pt. Type Provider Facility Loc./Unit Complaint [id number] 03/12/2017 19:18:00 03/12/2017 21:41:00 DIS Emergency OXANA GARCIA, DAVID Segal [facility] ER R MID CALF SPIDER BITE [id number] 12/14/2016 17:07:00 12/14/2016 17:23:00 DIS Emergency VIKASH GONZALEZ, KITA Fuentes [facility] ER REMOVAL OF STITCHES [id number] 12/06/2016 15:46:00 12/06/2016 17:36:00 DIS Emergency BHAVNA MALIN APRN [facility] ER DIZZINESS,POSSIBLE STAPH INFECTION [id number] 06/16/2015 19:05:00 06/16/2015 19:43:00 DIS Emergency JESUS GONZALEZ, SHIRA Santoro [facility] ER ELEVATED BLOOD SUGAR [id number] 10/05/2013 19:24:00 10/05/2013 23:59:59 CLS Outpatient [id number] 11/29/2018 09:37:00 ACT Inpatient KODY GONZALEZ, ANNAMARIA Hill [facility] ICU CVA, LEFT SIDED WEAKNESS [id number] 10/05/2013 19:45:00 10/05/2013 23:59:59 CLS Outpatient
[2018-12-02 04:49] LABS: BASOPHILS % (AUTO) 0 % (0-10); EOSINOPHILS # (AUTO) 0.1 10^3/uL (0.0-0.3); EOSINOPHILS % (AUTO) 2 % (0-10); HEMATOCRIT 37 % (35-52); HEMOGLOBIN 12.1 G/DL (11.5-16.0); LYMPHOCYTES # (AUTO) 2.4 X 10^3 (1.0-4.0); LYMPHOCYTES % (AUTO) 37 % (12-44); MEAN CORPUSCULAR HEMOGLOBIN 32 PG (25-34); MEAN CORPUSCULAR HGB CONC 33 G/DL (32-36); MEAN CORPUSCULAR VOLUME 96 FL (80-99); MEAN PLATELET VOLUME 10.4 FL (7.4-10.4); MONOCYTES # (AUTO) 0.5 X 10^3 (0.0-1.0); MONOCYTES % (AUTO) 8 % (0-12); NEUTROPHILS # (AUTO) 3.5 X 10^3 (1.8-7.8); NEUTROPHILS % (AUTO) 53 % (42-75); PLATELET COUNT 206 10^3/uL (130-400); RED CELL DISTRIBUTION WIDTH 13.9 % (10.0-14.5); WHITE BLOOD COUNT 6.5 10^3/uL (4.3-11.0)
[2018-12-02 05:02] LABS: BUN/CREATININE RATIO 10; CALCIUM 8.9 MG/DL (8.5-10.1); CARBON DIOXIDE 26 MMOL/L (21-32); CHLORIDE 106 MMOL/L (98-107); CREATININE SERUM 0.71 MG/DL (0.60-1.30); GFR ESTIMATED > 60; GLUCOSE 149 MG/DL (70-105); PHOSPHORUS 3.9 MG/DL (2.3-4.7); POTASSIUM 3.2 MMOL/L (3.6-5.0); SODIUM 144 MMOL/L (135-145)
[2018-12-02] MEDS: inSUlin ASPART (NovoLOG) 1 UNIT/0.01 ML (CHARGE PER UNIT) SC SCH ×4 (05:04→22:41)
[2018-12-02 05:27] VITALS: BP 128/62
[2018-12-02] MEDS: LEVOTHYROXINE 50 MCG (LEVOTHROID) TAB PO SCH (05:30)
[2018-12-02] MEDS: RT-ALBUTEROL/IPRATROPIUM 3 ML (DUONEB) VIAL INH SCH ×2 (07:42→23:37)
[2018-12-02 08:00] VITALS: BP 147/87
[2018-12-02] MEDS: amLODIPine 10 MG (NORVASC) TAB PO SCH (09:20)
[2018-12-02] MEDS: CELECOXIB 100 MG (CeleBREX) CAP PO SCH ×2 (09:20→21:04)
[2018-12-02] MEDS: PANTOPRAZOLE 20 MG TABLET (PROTONIX) PO SCH (09:20)
[2018-12-02] MEDS: ENOXAPARIN 40 MG/0.4 ML (LOVENOX) SYR SC SCH ×2 (09:20→21:03)
[2018-12-02] MEDS: ACETAMINOPHEN 325 MG TABLET PO PRN (09:20)
[2018-12-02] MEDS: DOCUSATE SODIUM 100 MG (COLACE) CAP PO SCH ×2 (09:20→21:03)
[2018-12-02] MEDS: ASPIRIN E.C. 81 MG (ECOTRIN) TAB PO SCH (09:20)
--- NOTE | 2018-12-02 12:23 | Progress Note-Hospitalist ---
Subjective HPI/CC On Admission Date Seen by Provider: Dec 02, 2018 Time Seen by Provider: 12:21 Pt is a 68yoCF with a PMH of HTN, STEPH, NIDDMII, hypothyroidism who presented to the ER due to left sided weakness and dizziness. On presentation her NIH was a 2 and her last known well at at 0215 today. She states she went to sleep at 215 and awoke at 315 with this symptoms and had significant difficulty ambulating to the bathroom. She called her daughter who advised her to call 911. On arrival here she was found to have an NIH of 2. Due to her low NIH score discussions were had regarding TPA and hte risks vs benefits and she declined. She went for CTA that revealed a right sided YACHT MASTER deficit. Dr Espinoza discussed the case with the stroke neurologist at [facility] who agreed with no TPA and as there was no large vessel occlusion so no indication for transfer. Shortly after she developed worsening symptoms. She developed left arm weakness and left leg weakness with near complete paralysis. She was well outside the window for TPA by the point. Subjective/Events-last exam Pt sleeping. AWakes but requests to go back to sleep. No concerns. Discussed with RN and no concerns. Objective Exam Vital Signs Vital Signs Date Time Temp Pulse Resp B/P (MAP) Pulse Ox O2 Delivery O2 Flow Rate FiO2 12/02/18 09:00 Room Air 12/02/18 08:00 98.0 72 20 147/87 (107) 96 12/02/18 05:27 2.00 Capillary Refill : Less Than 3 Seconds General Appearance: No Apparent Distress, Obese, Other (sleeping with CPAP in place) Respiratory: Lungs Clear, No Accessory Muscle Use, No Respiratory Distress Cardiovascular: Regular Rate, Rhythm, No JVD, No Murmur, Normal Peripheral Pulses Gastrointestinal: Normal Bowel Sounds, Non Tender, Soft Extremity: Normal Capillary Refill, No Calf Tenderness, No Pedal Edema, Other ( varicose veins noted) Neurologic/Psychiatric: Alert, Oriented x3, Normal Mood/Affect; No Aphasia, No EOM Palsy, No Facial Droop; Motor Weakness (left upper 0/5 and lower extremity 2 /5, sensation intact), Other (dysequilibrium with sitting edge of bed) Skin: Normal Color, Warm/Dry Results/Procedures Lab Laboratory Tests 12/02/18 04:15 Patient resulted labs reviewed. Imaging: Reviewed Imaging Report Assessment/Plan Assessment and Plan Assess & Plan/Chief Complaint Acute CVA Diagnosis/Problems Diagnosis/Problems (1) Acute right YACHT MASTER stroke Assessment & Plan: CTA reveals r YACHT MASTER deficit MRI ordered but unable to obtain due to weight Continue PT/OT/ST Echo shows normal EF no significant valvular abnormalities Lipid panel markedly abnormal, started on lower dose Lipitor due to history of myalgias and tolerating IRU consult placed (2) Essential (primary) hypertension Status: Chronic Assessment & Plan: Improved, continue amlodipine (3) Non-insulin dependent type 2 diabetes mellitus Status: Chronic Assessment & Plan: SSI On Actos at home (4) Hypothyroidism Status: Chronic Assessment & Plan: Continue home supplement Qualifiers: Hypothyroidism type: unspecified Qualified Codes: E03.9 - Hypothyroidism, unspecified (5) Hypokalemia Assessment & Plan: On HCTZ/triamterene at home, will hold Reports allergic to KCL so declined supplementation Consider spironolactone if another HTN needed Clinical Quality Measures DVT/VTE Risk/Contraindication: Risk Factor Score Per Nursin RFS Level Per Nursing on Admit: 4+=Very High ANNAMARIA GATES MD Dec 02, 2018 12:23
[2018-12-02 16:08] VITALS: BP 157/69
[2018-12-02 19:32] VITALS: BP 163/67
[2018-12-02] MEDS: ATORVASTATIN 20 MG (LIPITOR) TABLET PO SCH (21:04)
[2018-12-03] VITALS: BP 132/68
--- NOTE | 2018-12-03 04:07 | NUR ---
2100-PT REQUESTING 0.5 TAB OF LORTAB FOR RIGHT SHOULDER PAIN
[2018-12-03] MEDS: inSUlin ASPART (NovoLOG) 1 UNIT/0.01 ML (CHARGE PER UNIT) SC SCH ×4 (06:02→20:56)
[2018-12-03] MEDS: LEVOTHYROXINE 50 MCG (LEVOTHROID) TAB PO SCH (06:03)
[2018-12-03 08:00] VITALS: BP 161/70
[2018-12-03] MEDS: RT-ALBUTEROL/IPRATROPIUM 3 ML (DUONEB) VIAL INH SCH (08:40)
[2018-12-03] MEDS: ACETAMINOPHEN 325 MG TABLET PO PRN (08:47)
[2018-12-03] MEDS: CELECOXIB 100 MG (CeleBREX) CAP PO SCH ×2 (08:48→20:55)
[2018-12-03] MEDS: ENOXAPARIN 40 MG/0.4 ML (LOVENOX) SYR SC SCH ×2 (08:48→20:56)
[2018-12-03] MEDS: amLODIPine 10 MG (NORVASC) TAB PO SCH (08:48)
[2018-12-03] MEDS: PANTOPRAZOLE 20 MG TABLET (PROTONIX) PO SCH (08:48)
[2018-12-03] MEDS: ASPIRIN E.C. 81 MG (ECOTRIN) TAB PO SCH (08:48)
[2018-12-03] MEDS: DOCUSATE SODIUM 100 MG (COLACE) CAP PO SCH ×2 (09:09→20:55)
--- NOTE | 2018-12-03 09:51 | Speech Therapy Daily Note ---
Speech Daily Progress Note Subjective Date Seen by Provider: Dec 03, 2018 Time Seen by Provider: 00:15 Patient was resting in her bed when I arrived. Patient stated she's eaten more this weekend without difficulty. Objective Patient consumed some soft fruit with utilization of compensatory strategies as trained. Assessment Assessment Current Status: Good Progress Treatment Plan Continue Plan of Care Speech Short Term Goals Short Term Goals Short Term Goals 1) The patient will demonstrate safe oral intake of least restrictive diet level without s/s of aspiration at 90% or greater. 2) The patient will utilize compensatory strategies as trained for the safest oral intake at 90% or greater with minimal cues. Speech Excelsior Machine Operator Goals Excelsior Machine Operator Goals The patient will maintain adequate nutrition/hydration via safe effective swallow function with the least restrictive diet level. Speech-Plan Patient/Family Goals Patient/Family Goals: Patient plans to return home with family support upon hospital discharge. Treatment Plan Speech Therapy Treatment Plan: Continue Plan of Care Patient is making good progress as a result of skilled ST services. Treatment Duration: Dec 07, 2018 Frequency: 5 times per week Estimated Hrs Per Day: .25 hour per day Rehab Potential: Good Barriers to Learning: New onset CVA Pt/Family Agrees to Plan: Yes Safety Risks/Education Teaching Recipient: Patient Teaching Methods: Discussion Response to Teaching: Verbalize Understanding Education Topics Provided: Safety of oral intake and foods allowed on the Dysphagia II diet level. Time Speech Therapy Time In: 09:00 Speech Therapy Time Out: 09:15 Total Billed Time: 15 Billed Treatment Time [address] Dec 03, 2018 09:51
--- NOTE | 2018-12-03 10:02 | Physical Therapy Daily Note ---
PT Daily Note-Current Subjective Patient in bed pre tx, agrees to PT, has some pain in right shoulder. Will be co-treating with OT due to poor patient mobility, balance, strength. Appearance Patient in chair at bedside post tx with nurse call, phone, tray, all needs met. Mental Status Patient Orientation: Person, Place, Situation Attachments: Curry Catheter Transfers Therapy Code Descriptions/Definitions Functional [place] Measure: 0=Not Assessed/NA 4=Minimal Assistance 1=Total Assistance 5=Supervision or Setup 2=Maximal Assistance 6=Modified [place] 3=Moderate Assistance 7=Complete [place] Therapy Quality Codes: 6 Independent with activity with or without an assistive device 5 Patient requires set up or clean up by helper. Patient completes activity by themselves 4 Supervision or touching assist (CGA). [place] provide cues , steadying assist 3 The helper provides less than half the effort to complete the activity 2 The helper provides more than half the effort to complete the activity 1 Dependent. The helper does all the effort to complete an activity 7 Patient refused to complete or attempt activity 9 The patient did not perform the activity before the current illness or injury 88 Not attempted due to Medical conditions or safety concerns Transfers (B, C, W/C) (FIM): 2 Scootin Rollin Supine to/from Sit: 2 Sit to/from Stand: 3 Bed to/from Chair: 2 Patient is able to assist a little with her left leg getting from supine to sit. Shows improvement but still max assist for bed mobility. Requires 2 for assist. Patient stood twice at the edge of the bed for a few minutes each time. Weight Bearing Right Lower Extremity: Right Weight Bearing/Tolerated Left Lower Extremity: Left Weight Bearing/Tolerated Gait Training Gait (FIM): 1 Distance: 2' Gait Level of Assist: 2 Gait Persons Needed: 2 Gait Assistive Device: Handheld Assist Patient was able to step sideways a couple of steps and forward one step with assist of 2 and SEAMLESS TUBE MILL OPERATOR. Patient feels like her left knee will buckle, she was able to advance her left foot with a lot of effort. Treatments bed mobility and transfers, ambulation Assessment Current Status: Fair Progress improved strength but still max assist for most mobility PT Short Term Goals Short Term Goals Time Frame: Dec 06, 2018 Transfers (B,C,W/C) (FIM): 2 Gait (FIM): 1 Distance (FIM): 1=up to 49 ft Gait Distance Comment: 5' Gait Level of Assist: 2 Gait Assistive Device: FWW, Walker Robby PT Drug Counselor Goals Intermediate Goals PT Intermediate Goals Time Frame: Dec 27, 2018 Transfers (B,C,W/C) (FIM): 4 Gait (FIM): 1 Gait distance (FIM): 1=up to 49 ft Distance: 25' Gait Level of Assist: 3 Gait Assistive Device: FWW, Walker Robby Wheelchair (FIM): 2 Wheelchair distance (FIM): 4=920-80 ft Distance: 100' Wheelchair Level of Assist: 4 PT Plan Problem List Problem List: Activity Tolerance, Functional Strength, Safety, Balance, Gait, Transfer, Bed Mobility, ROM Treatment/Plan Treatment Plan: Continue Plan of Care Treatment Plan: Bed Mobility, Education, Functional Activity Angelita, Functional Strength, Gait, Safety, Therapeutic Exercise, Transfers Treatment Duration: Dec 27, 2018 Frequency: 11 times per week Estimated Hrs Per Day: .25 hour per day Patient and/or Family Agrees t: Yes Safety Risks/Education Patient Education: Gait Training, Transfer Techniques, Correct Positioning, Safety Issues Teaching Recipient: Patient Teaching Methods: Demonstration, Discussion Response to Teaching: Reinforcement Needed Time/GCodes Time In: 0935 Time Out: 0955 Total Billed Treatment Time: 20 Total Billed Treatment 1 visit FA 20' Co-treated with OT for the whole 20 min. PT performed bed mobility, transfers, ambulation, OT worked on UE positioning and assisted with transfers. MEGHAN DYER PT Dec 03, 2018 10:02
--- NOTE | 2018-12-03 10:03 | Occupational Ther Daily Note ---
OT Current Status-Daily Note Subjective Pt alert, lying in bed. Pt agrees to therapy. No c/o pain at this time. Pt works hard with L side to keep mobile. Mental Status/Objective Patient Orientation: Person, Place, Time, Situation Therapy Code Descriptions/Definitions Functional [place] Measure: 0=Not Assessed/NA 4=Minimal Assistance 1=Total Assistance 5=Supervision or Setup 2=Maximal Assistance 6=Modified [place] 3=Moderate Assistance 7=Complete [place] Attachments: IV Other Treatment Co-treat with Pt for skilled instruction and care. PT worked on standing and LE strengthening. OT worked on sitting balance and UE ROM. Mod A for bed mobility. Sitting EOB with CGA. Pt demonstrated movement in L fingers and wrist and slight muscle movement with shldr add. Pt anxious about L UE pulling down on shldr. Pt able to stand and shift wt with assist x2. SPT from EOB to chair, assist x2. After therapy, pt sitting in room chair with call light/ phone in reach. All needs met in room. OT Short Term Goals Short Term Goals Time Frame: Dec 13, 2018 Transfers (B,C,W/C) (FIM): 2 Additional Short Term Goals: 1-Demonstrate ADL Tasks, 2-Verbalize Understanding , 3-ImproveStrength/Angelita 1=Demonstrate adherence to instructed precautions during ADL tasks. 2=Patient will verbalize/demonstrate understanding of assistive devices/ modifications for ADL. 3=Patient will improve strength/tolerance for activity to enable patient to perform ADL's. OT Fpc Goals [place] Operator Goals Time Frame: Dec 27, 2018 Eating (FIM): 7 Grooming(FIM): 7 Bathing(FIM): 0 Upper Body Dressing(FIM): 5 Lower Body Dressing(FIM): 4 Toileting(FIM): 5 Transfers (B,C,W/C) (FIM): 4 Toilet/Commode Transfer(FIM): 4 Tub Transfer(FIM): 0 Shower Transfer(FIM): 4 Additional Goals: 1-Demonstrate ADL Tasks, 2-Verbalize Understanding, 3- ImproveStrength/Angelita 1=Demonstrate adherence to instructed precautions during ADL tasks. 2=Patient will verbalize/demonstrate understanding of assistive devices/ modifications for ADL. 3=Patient will improve strength/tolerance for activity to enable patient to perform ADL's. OT Education/Plan Discharge Recommendations Plan/Recommendations: Continue POC Treatment Plan/Plan of Care Patient would benefit from OT for education, treatment and training to promote independence in ADL's, mobility, safety and/or upper extremity function for ADL' s. Plan of Care: ADL Retraining, Caregiver Training, Functional Mobility, UE Funct Exercise/Act Treatment Duration: Dec 27, 2018 Frequency: 5 times per week Estimated Hrs Per Day: .25 hour per day Agreement: Yes Rehab Potential: Good Time/GCodes Start Time: 09:35 Stop Time: 09:55 Total Time Billed (hr/min): 20 Billed Treatment Time 1 visit-NM 1 (20 min) MADHAVI MENA Dec 03, 2018 10:03
--- NOTE | 2018-12-03 10:30 | Physical Therapy Daily Note ---
PT Daily Note-Current Subjective Patient in chair at bedside pre tx, agrees to PT, would like to get back to bed , will be co-treating with OT due to poor patient mobility, strength, endurance , balance. Appearance Patient in bed post tx with nurse call, phone, tray, all needs met. Mental Status Patient Orientation: Person, Place, Situation Attachments: Curry Catheter Transfers Therapy Code Descriptions/Definitions Functional [place] Measure: 0=Not Assessed/NA 4=Minimal Assistance 1=Total Assistance 5=Supervision or Setup 2=Maximal Assistance 6=Modified [place] 3=Moderate Assistance 7=Complete [place] Therapy Quality Codes: 6 Independent with activity with or without an assistive device 5 Patient requires set up or clean up by helper. Patient completes activity by themselves 4 Supervision or touching assist (CGA). [place] provide cues , steadying assist 3 The helper provides less than half the effort to complete the activity 2 The helper provides more than half the effort to complete the activity 1 Dependent. The helper does all the effort to complete an activity 7 Patient refused to complete or attempt activity 9 The patient did not perform the activity before the current illness or injury 88 Not attempted due to Medical conditions or safety concerns Transfers (B, C, W/C) (FIM): 2 Scootin Rollin Supine to/from Sit: 2 Sit to/from Stand: 3 Bed to/from Chair: 2 Assist of 2 for the transfer back to bed, some left knee buckling. Weight Bearing Right Lower Extremity: Right Weight Bearing/Tolerated Left Lower Extremity: Left Weight Bearing/Tolerated Exercises Seated Therapy Exercises: Ankle pumps, Long arc quads Seated Reps: 15 (AAROM on the left side) Treatments transfers, functional strengthening Assessment Current Status: Fair Progress improving transfers PT Short Term Goals Short Term Goals Time Frame: Dec 06, 2018 Transfers (B,C,W/C) (FIM): 2 Gait (FIM): 1 Distance (FIM): 1=up to 49 ft Gait Distance Comment: 5' Gait Level of Assist: 2 Gait Assistive Device: FWW, Walker Robby PT Long-Term Goals Long-Term Goals PT Long-Term Goals Time Frame: Dec 27, 2018 Transfers (B,C,W/C) (FIM): 4 Gait (FIM): 1 Gait distance (FIM): 1=up to 49 ft Distance: 25' Gait Level of Assist: 3 Gait Assistive Device: FWW, Walker Robby Wheelchair (FIM): 2 Wheelchair distance (FIM): 5=022-62 ft Distance: 100' Wheelchair Level of Assist: 4 PT Plan Problem List Problem List: Activity Tolerance, Functional Strength, Safety, Balance, Gait, Transfer, Bed Mobility, ROM Treatment/Plan Treatment Plan: Continue Plan of Care Treatment Plan: Bed Mobility, Education, Functional Activity Angelita, Functional Strength, Gait, Safety, Therapeutic Exercise, Transfers Treatment Duration: Dec 27, 2018 Frequency: 11 times per week Estimated Hrs Per Day: .25 hour per day Patient and/or Family Agrees t: Yes Safety Risks/Education Patient Education: Transfer Techniques, Correct Positioning, Safety Issues Teaching Recipient: Patient Teaching Methods: Demonstration, Discussion Response to Teaching: Reinforcement Needed Time/GCodes Time In: 1012 Time Out: 1022 Total Billed Treatment Time: 10 Total Billed Treatment 1 visit FA 10' co-treated with OT for the whole 10 min, PT worked on transfers and bed mobility , OT assisted with transfers and performed UE positioning during treatment. MEGHAN DYER PT Dec 03, 2018 10:30
--- NOTE | 2018-12-03 10:31 | Occupational Ther Daily Note ---
OT Current Status-Daily Note Subjective Pt alert, sitting up in room chair. Pt agrees to therapy. Pt c/o dizziness like symptoms. Mental Status/Objective Patient Orientation: Person, Place, Time, Situation Therapy Code Descriptions/Definitions Functional [place] Measure: 0=Not Assessed/NA 4=Minimal Assistance 1=Total Assistance 5=Supervision or Setup 2=Maximal Assistance 6=Modified [place] 3=Moderate Assistance 7=Complete [place] Attachments: IV Other Treatment Co-treat with PT for skilled instruction and care. Pt worked on transfers, bed mobility and LE AROM. OT worked on grooming, bed mobility and active movement L UE. Pt is demonstrating L shldr add, slight and fatigues quickly, and finger movement. Pt does not demonstrate L neglect in vision or body awareness at this time. Pt able to brush hair after set up. Pt SPT assist x2 from chair to bed. Mod A EOB to supine then pt able to initiate roll toward R side. After therapy, pt lying in bed with call light/phone in reach. All needs met in room. OT Short Term Goals Short Term Goals Time Frame: Dec 13, 2018 Transfers (B,C,W/C) (FIM): 2 Additional Short Term Goals: 1-Demonstrate ADL Tasks, 2-Verbalize Understanding , 3-ImproveStrength/Angelita 1=Demonstrate adherence to instructed precautions during ADL tasks. 2=Patient will verbalize/demonstrate understanding of assistive devices/ modifications for ADL. 3=Patient will improve strength/tolerance for activity to enable patient to perform ADL's. OT Senior Care Goals Director Electrical Engineering Goals Time Frame: Dec 27, 2018 Eating (FIM): 7 Grooming(FIM): 7 Bathing(FIM): 0 Upper Body Dressing(FIM): 5 Lower Body Dressing(FIM): 4 Toileting(FIM): 5 Transfers (B,C,W/C) (FIM): 4 Toilet/Commode Transfer(FIM): 4 Tub Transfer(FIM): 0 Shower Transfer(FIM): 4 Additional Goals: 1-Demonstrate ADL Tasks, 2-Verbalize Understanding, 3- ImproveStrength/Angelita 1=Demonstrate adherence to instructed precautions during ADL tasks. 2=Patient will verbalize/demonstrate understanding of assistive devices/ modifications for ADL. 3=Patient will improve strength/tolerance for activity to enable patient to perform ADL's. OT Education/Plan Problem List/Assessment Assessment: Decreased Activ Tolerance, Decreased UE Strength, Impaired Bed Mobility, Impaired Coordination, Impaired Funct Balance, Impaired Self-Care Skills, Restricted Funct UE ROM Discharge Recommendations Plan/Recommendations: Continue POC Treatment Plan/Plan of Care Patient would benefit from OT for education, treatment and training to promote independence in ADL's, mobility, safety and/or upper extremity function for ADL' s. Plan of Care: ADL Retraining, Caregiver Training, Functional Mobility, UE Funct Exercise/Act Treatment Duration: Dec 27, 2018 Frequency: 5 times per week Estimated Hrs Per Day: .25 hour per day Agreement: Yes Rehab Potential: Good Time/GCodes Start Time: 10:12 Stop Time: 10:22 Total Time Billed (hr/min): 10 Billed Treatment Time 1 visit-NM 1 (10 min) co-treat with PT 10 min MADHAVI MENA Dec 03, 2018 10:31
--- NOTE | 2018-12-03 13:36 | Progress Note-Hospitalist ---
Progress Note Progress Notes/Assess & Plan Date Seen 12/03/18 Time Seen by Provider: 13:31 Assessment & Plan The patient is a 68-year-old white female who was admitted 4 days ago with symptoms suggesting a CVA. She now has clear left-sided weakness. Her speech appears to be clear. She is expected to transfer to the inpatient rehabilitation facility tomorrow. Physical exam: The patient is alert and pleasant. Speech is clear. Cranial nerves II through XII appear to be intact. Lungs are clear to auscultation. CV is regular without murmur. Abdomen is obese. Extremities show minimal ability to move her fingers. She is unable to clinical case manager or to she has movement in her left lower extremity. She is able to get her heel off the bed but not to dorsiflex her foot. 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 2.left-sided weakness secondary to number 1. 3.morbid obesity. Plan: Continue physical therapy. Transferred to the ER F tomorrow as planned. CATIA MENCHACA MD Dec 03, 2018 13:36
--- NOTE | 2018-12-03 14:51 | NUR ---
Inpatient rehab evaluation Patient continues to progress with therapies. Anticipate admission to the ARU 12/04/18, if approved by physician. Thank you for the referral.
[2018-12-03 15:28] LABS: CHOLESTEROL 237 MG/DL (< 200); HDL CHOLESTEROL 29 MG/DL (40-60); TRIGLYCERIDES 564 MG/DL (<150); VLDL CHOLESTEROL 113 MG/DL (5-40)
[2018-12-03 15:42] VITALS: BP 133/61
[2018-12-03 20:09] VITALS: BP 157/73
[2018-12-03] MEDS: ATORVASTATIN 20 MG (LIPITOR) TABLET PO SCH (20:55)
[2018-12-03] MEDS: HYDROcodone/APAP 7.5 MG/325 MG (LORTAB, LORCET PLUS) TABLET PO PRN (20:56)
[2018-12-03 23:19] VITALS: BP 166/70
[2018-12-04] MEDS: inSUlin ASPART (NovoLOG) 1 UNIT/0.01 ML (CHARGE PER UNIT) SC SCH (05:25)
[2018-12-04] MEDS: LEVOTHYROXINE 50 MCG (LEVOTHROID) TAB PO SCH (06:06)
[2018-12-04] MEDS: ACETAMINOPHEN 325 MG TABLET PO PRN (06:08)
[2018-12-04 08:00] VITALS: BP 169/77
[2018-12-04] MEDS: ENOXAPARIN 40 MG/0.4 ML (LOVENOX) SYR SC SCH (08:54)
[2018-12-04] MEDS: amLODIPine 10 MG (NORVASC) TAB PO SCH (08:54)
[2018-12-04] MEDS: PANTOPRAZOLE 20 MG TABLET (PROTONIX) PO SCH (08:54)
[2018-12-04] MEDS: ASPIRIN E.C. 81 MG (ECOTRIN) TAB PO SCH (08:54)
[2018-12-04] MEDS: CELECOXIB 100 MG (CeleBREX) CAP PO SCH (08:54)
[2018-12-04] MEDS: DOCUSATE SODIUM 100 MG (COLACE) CAP PO SCH (08:54)
[2018-12-04 09:18] VITALS: BP 169/77
--- NOTE | 2018-12-04 09:18 | NUR ---
PHYSICAL THERAPY HERE TO TRANSPORT PATIENT TO ARU. PATIENT STABLE ON ROOM AIR. PATIENT LEFT VIA WHEELCHAIR ACCOMPANIED BY STAFF. PATIENT BELONGINGS TRANSPORTED WITH PATIENT TO NEW ROOM 229.
[2018-12-04] MEDS ORDERED: ATOR20TA66 PO (09:36)
[2018-12-04] MEDS ORDERED: ASPI-983 PO (09:36)
--- NOTE | 2018-12-04 09:40 | NUR ---
REPORT CALLED TO JUAN ALEJANDRO.
== END 2018-12-04 09:18 | DRG 65 ==
LOC: EDUNIT# 06:03 → ER 06:04 → ICU 09:37 → 4TH 11-30 15:19
PROVIDERS: ADMIT Family Medicine; ATTEND Family Medicine
DX: I63.9 Cerebral infarction, unspecified (principal); G81.94 Hemiplegia, unspecified affecting left nondominant side; R29.702 NIHSS score 2; E66.01 Morbid (severe) obesity due to excess calories; Z68.42 Body mass index [BMI] 45.0-49.9, adult; E87.6 Hypokalemia; I10 Essential (primary) hypertension; E11.9 Type 2 diabetes mellitus without complications; E03.9 Hypothyroidism, unspecified; E78.00 Pure hypercholesterolemia, unspecified; G47.33 Obstructive sleep apnea (adult) (pediatric); K21.9 Gastro-esophageal reflux disease without esophagitis; H40.9 Unspecified glaucoma; Z79.84 Long term (current) use of oral hypoglycemic drugs; Z88.8 Allergy status to other drugs, medicaments and biological substances
CPT/HCPCS: 0042T; 36415; 51702; 70450; 70496; 70498; 71045; 80048; 80053; 80061; 81000; 82962; 83735; 84100; 84439; 84443; 84484; 85025; 85379; 85610; 85730; 87081; 93005; 93041; 93306; 94640; 94664; 94760

== ENCOUNTER 2018-12-04 09:49 | Inpatient (IN) | payer MEDICARE, BC ==
[~2018-12-04] VITALS: Ht 167.6 cm; Wt 131.1 kg
--- NOTE | 2018-12-04 09:28 | PM&R H&P / Post Admit Assess ---
History of Present Illness HPI/Chief Complaint Chief complaint: Stroke with left sided weakness and dysphasia. HPI: This is a 68yoWF who moved to [place] in 2011 but remained a patient of [facility] doctor who presented with left sided weakness diagnosed with a stroke (out of tPA window of candidacy) and has been actively pursuing rehab since that time. At this current time she is still have dysphasia and difficulty speaking but her thought process is intact and she will need intensive therapy for the left sided weakness. Curry catheter has been maintained and that will be discontinued. Bowels are moving she reports after meds were given. I reviewed all of her home medication that included Celebrex and will maintain on Aspirin and low dose Statin therapy following a stroke per protocol. Pt is agreeable for inpatient rehab and intensive therapy to regain function following a devastating stroke with left sided weakness. She lives at home alone. 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 Pt does have chronic pain, fibromyalgia, and osteoarthritis that she struggles with on an ongoing basis. Source: patient, RN/MD, old records Exam Limitations: no limitations Date Seen 12/04/18 Time Seen by a Provider: 10:30 Attending Physician Leisa Singh DO PCP No,Local Physician Referring Physician Date of Admission Home Medications & Allergies Home Medications Reviewed patient Home Medication Reconciliation performed by pharmacy medication reconciliations manufacturing technician and/or nursing. Patients Allergies have been reviewed. Allergies Allergies Coded Allergies cinnamon (Verified Allergy, Severe, 11/29/18) DIFFICULTY BREATHING, ASTHMA ATTACK PER PATIENT MYRTLE Inhibitors (Unverified Allergy, Unknown, 06/16/15) Beta-Blockers (Beta-Adrenergic Bloc (Unverified Allergy, Unknown, 06/16/15) Bwlojye-Qkt-Yfr Reductase Inhibitor (Unverified Allergy, Unknown, Myalgia, 12/04) tolerating atorvastatin 20mg 3.5.19 floxacillin (Unverified Allergy, Unknown, 06/16/15) potassium chloride (Unverified Allergy, Unknown, 06/16/15) Uncoded Allergies EYE DROPS ( Allergy, Unknown, 06/16/15) Past Uyelkpp-Uekhhk-Kthflm Hx Past Med/Social Hx: Reviewed Nursing Past Med/Soc Hx, Reviewed and Corrections made Patient Social History Marrital Status: single 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[employer]') Alcohol Use: Denies Use Smoking Status: Never a Smoker Recent Hopitalizations: No Immunizations Up To Date Tetanus Booster (TDap): More than 5yrs Past Medical History Surgeries: Appendectomy, Breast, Eye Surgery, Gallbladder, Hysterectomy, Orthopedic Respiratory: Sleep Apnea Currently Using CPAP: Yes Cardiac: High Cholesterol, Hypertension Neurological: Stroke (11/01/18) Reproductive: Yes Hysterectomy Gastrointestinal: Gastroesophageal Reflux Musculoskeletal: Arthritis, Fibromyalgia, Chronic Back Pain Endocrine: Hypothyroidsim, Diabetes, Non-Insulin dep HEENT: Cataract, Glaucoma History of Blood Disorders: No Family History No Pertinent Family Hx, Hypertension Review of Systems Constitutional: see HPI EENTM: no symptoms reported Respiratory: no symptoms reported Cardiovascular: no symptoms reported Gastrointestinal: no symptoms reported Genitourinary: no symptoms reported Musculoskeletal: back pain, joint pain, muscle stiffness Skin: no symptoms reported Psychiatric/Neurological: Anxiety, Depressed, Paresthesia, Weakness (left side) All Other Systems Reviewed Negative Unless Noted: Yes Physical Exam Exam Vital Signs Vital Signs Date Time Temp Pulse Resp B/P (MAP) Pulse Ox O2 Delivery O2 Flow Rate FiO2 12/04/18 18:09 98.0 65 20 148/75 (99) 95 Room Air Capillary Refill : General Appearance: No Apparent Distress, WD/WN, Chronically ill, Obese HEENT: PERRL/EOMI, Normal ENT Inspection, Pharynx Normal, Moist Mucous Membranes Neck: Full Range of Motion, Normal Inspection, Non Tender, Supple Respiratory: Chest Non Tender, Lungs Clear, Normal Breath Sounds, No Accessory Muscle Use, No Respiratory Distress Cardiovascular: Regular Rate, Rhythm, No Edema, No Gallop, No JVD, No Murmur Gastrointestinal: Normal Bowel Sounds, No Organomegaly, No Pulsatile Mass, Non Tender, Soft Back: Normal Inspection, No CVA Tenderness, No Vertebral Tenderness Extremity: Normal Capillary Refill, Normal Inspection, Normal Range of Motion ( except left upper ad lower extremity weakness), Non Tender, No Calf Tenderness, No Pedal Edema Neurologic/Psychiatric: Alert, Oriented x3, Normal Mood/Affect, Facial Droop ( left), Motor Weakness (left sided weakness, left facial droop, thickened speech) Skin: Normal Color, Warm/Dry Lymphatic: No Adenopathy Results Results/Procedures Labs Patient resulted labs reviewed. Assessment/Plan Assessment and Plan Assess & Plan/Chief Complaint Assessment: s/p right COFFEE SOMMELIER stroke with left sided weakness HTN HTG HLP Hypothyroidism STEPH on CPAP Hypokalemia DM OOC DVT PPx with Lovenox Plan: Intensive PT/OT/Speech therapies Check HGA1C along with other basic labs DC catheter today Monitor bowel function (1) Acute right COFFEE SOMMELIER stroke (2) STEPH on CPAP (3) Obesity (4) Non-insulin dependent type 2 diabetes mellitus (5) Essential (primary) hypertension (6) Hypothyroidism (7) Weakness of left side of body (8) Dysphagia (9) Difficulty speaking (10) Hyperglyceridemia (11) Hypokalemia (12) DVT prophylaxis Post Admission Physician Asses Date seen by provider: Dec 04, 2018 Time seen by provider: 10:30 Admisison Dx: (1) Acute right COFFEE SOMMELIER stroke The preadmission screen agrees with the post admission assessment that the patient is a good candidate for inpatient rehabilitation. The patient will have a comprehensive program of inpatient rehabilitation with a goal of maximizing level of functional independence prior to discharge home with family. The patient will have PT/OT ninety minutes per day, each discipline, five days a week for gait, strengthening, conditioning, balance, ADLs, any patient/family/caregiver training as necessary. Speech therapy to do cognitive assessment and treat as indicated. Rehabilitation nursing to assist with bowel, bladder, skin, wound care, medication administration, pain management. County Bailiff to assist with discharge planning, community reentry. SCD's for DVT prophylaxis. She appears to be well motivated to participate in three hours of therapy a day. She should be able to tolerate three hours of therapy a day from a medical standpoint. She should benefit from the three hours of therapy a day. She has a reasonable discharge plan, reasonable discharge rehabilitation goals and a supportive family. She has various comorbidities that need to be closely monitored with medications and treatments adjusted on a daily basis as needed. These include: Barriers to discharge for this patient who had been independent prior to this are for her to be modified independent to supervision for ADLs and mobility skills prior to discharge home with [family], so as to lessen the burden of the caregivers. Risks for this patient include: 1. Fall 2. Fracture 3. DVT 4. Pulmonary embolism 5. Wound infection 6. Skin breakdown 7. Contractures 8. Poorly controlled pain 9. Urinary retention 10. UTI 11. Respiratory infection 12. Aspiration Estimated Length of Stay: 16 days Prognosis: Rehab prognosis appears good for goal of discharge home with family modified independent to supervision for ADLs and mobility skills. General: Alert, Oriented X3, Cooperative, No Acute Distress HEENT: Atraumatic, PERRLA Neck: Supple, No JVD, No Thyromegaly, +2 Carotid Pulse No Bruit, No LAD Lungs: Clear to Auscultation, Normal Air Movement Heart: Regular Rate, Normal S1, Normal S2, No Murmurs Abdomen: Normal Bowel Sounds, Soft, No Tenderness, No Hepatosplenomegaly, No Masses Extremities: No Clubbing, No Cyanosis, No Edema, Normal Pulses, No Tenderness/ Swelling Skin: No Rashes, No Breakdown, No Significant Lesion Neuro: Sensation Intact, Other (left sided weakness, left facial droop, thickened speech) Psych/Mental Status: Mental Status NL, Mood NL LEISA SINGH DO Dec 04, 2018 09:28
[~2018-12-04 09:49] MED LIST changes: +ACET-2267 PO; +ASPI-983 PO; +ATOR20TA66 PO; +HYDR-3816 PO
--- NOTE | 2018-12-04 09:58 | NUR ---
NATALI AGUIAR admitted to room 229-1, with an admitting diagnosis of CVA, on 12/04/18 from [facility]TH FLOOR via WHEELCHAIR, accompanied by THERAPY. NATALI AGUIAR introduced to surroundings, call light, bed controls, phone, TV, temperature control, lights, meal times, smoking policy, visitor policy, side rail policy, bathrooms and showers. Patient Rights given to patient in the handbook. NATALI AGUIAR verbalizes understanding that [facility] is not responsible for the loss or damage to any personal effects or valuables that are kept in the patient's possession during their hospitalization. The following Patient Care Plans were discussed with the PATIENT: Discharge Planning, ALTERED CEREBRAL TISSUE PERFUSION, IMPAIRED MOBILITY, UNILATERAL NEGLECT, SELF CARE DEFICIT, HIGH RISK: ASPIRATION, DYSPHAGIA, HIGH RISK: IMPAIRED SKIN INTEGRITY, and HIGH RISK: INJURY. NATALI AGUIAR verbalizes understanding of Interdisciplinary Patient Education. Patient received Patient Rights Booklet, which includes Privacy Act Statement and Data Collection Information Summary.
--- OUTSIDE RECORDS SUMMARY | 2018-12-04 09:58 | XMS REPORT | Continuity of Care Document ---
Author Author [facility] Organization [facility] Address Unknown Phone Unavailable Allergies Active Description Code Type Severity Reaction Onset Reported/Identified Relationship to Patient Clinical Status Yes MYRTLE Inhibitors [id number] Drug Allergy Unknown N/A 06/16/2015 Yes Beta-Blockers (Beta-Adrenergic Bloc [id number] Drug Allergy Unknown N/A Yes EYE DROPS EYE DROPS Unknown N/A 06/16/2015 Yes floxacillin [id number] Drug Allergy Unknown N/A 06/16/2015 Yes potassium chloride [id number] Drug Allergy Unknown N/A 06/16/2015 Yes Ewcbwsh-Pzw-Iqu Reductase Inhibitor [id number] Drug Allergy Unknown N/A Yes cinnamon [id number] Drug Allergy Severe N/A 11/29/2018 Yes Hsvdeyz-Sbg-Njy Reductase Inhibitor [id number] Drug Allergy Unknown Myalgia 12/04/2018 Medications There is no data. Problems Date [...] PALPITATIONS 12/06/2016 BHAVNA MALIN APRN Ot Z79.84 [facility] (CURRENT) USE OF ORAL HYPOGLYC 12/06/2016 BHAVNA MALIN APRN Ot Z79.899 OTHER [facility] (CURRENT) DRUG THERAPY 12/07/2016 BHAVNA MALIN APRN Ot E11.9 TYPE 2 DIABETES MELLITUS WITHOUT COMPLIC 12/07/2016 BHAVNA MALIN APRN Ot I10 ESSENTIAL (PRIMARY) HYPERTENSION 12/07/2016 BHAVNA MALIN APRN Ot L72.3 SEBACEOUS CYST 12/07/2016 BHAVNA MALIN APRN Ot R00.2 PALPITATIONS 12/07/2016 BHAVNA MALIN APRN Ot Z79.84 MCC (CURRENT) USE OF ORAL HYPOGLYC 12/07/2016 BHAVNA MALIN APRN Ot Z79.899 OTHER BELLMAKER (CURRENT) DRUG THERAPY 12/08/2016 BHAVNA MALIN APRN Ot E11.9 TYPE 2 DIABETES MELLITUS WITHOUT COMPLIC 12/08/2016 BHAVNA MALIN APRN Ot I10 ESSENTIAL (PRIMARY) HYPERTENSION 12/08/2016 BHAVNA MALIN APRN Ot L72.3 SEBACEOUS CYST 12/08/2016 BHAVNA MALIN APRN Ot R00.2 PALPITATIONS 12/08/2016 BHAVNA MALIN APRN Ot Z79.84 BELLMAKER (CURRENT) USE OF ORAL HYPOGLYC 12/08/2016 BHAVNA MALIN APRN Ot Z79.899 OTHER BELLMAKER (CURRENT) DRUG THERAPY 12/14/2016 VIKASH GONZALEZ, KITA T Ot S11.91XD LACERATION W/O FOREIGN BODY OF UNSP PART 12/15/2016 JAILYN SUH MDUA T Ot S11.91XD LACERATION W/O FOREIGN BODY OF UNSP PART 12/16/2016 KITA SUH MD T Ot S11.91XD LACERATION W/O FOREIGN BODY OF UNSP PART 12/20/2016 JAILYN SUH MDUA T Ot S11.91XD LACERATION W/O FOREIGN BODY OF UNSP PART 02/14/2017 BHAVNA MALIN APRN Ot E11.9 TYPE 2 DIABETES MELLITUS WITHOUT COMPLIC 02/14/2017 BHAVNA MALIN APRN Ot I10 ESSENTIAL (PRIMARY) HYPERTENSION 02/14/2017 BHAVNA MALIN APRN Ot L72.3 SEBACEOUS CYST 02/14/2017 BHAVNA MALIN APRN Ot R00.2 PALPITATIONS 02/14/2017 BHAVNA MALIN APRN Ot Z79.84 BELLMAKER (CURRENT) USE OF ORAL HYPOGLYC 02/14/2017 BHAVNA MALIN APRN Ot Z79.899 OTHER BELLMAKER (CURRENT) DRUG THERAPY 03/12/2017 DAVID BUENO Ot E11.9 TYPE 2 DIABETES MELLITUS WITHOUT COMPLIC 03/12/2017 DAVID BUENO Ot I10 ESSENTIAL (PRIMARY) HYPERTENSION 03/12/2017 DAVID BUENO Ot L03.115 CELLULITIS OF RIGHT LOWER LIMB 03/12/2017 DAVID BUENO Ot M79.661 PAIN IN RIGHT LOWER LEG 03/12/2017 DAVID BUENO Ot W57.XXXA BIT/STUNG BY NONVENOM INSECT OTH NONVE 03/12/2017 [facility]ID BUENO Ot Y92.[address] [facility] NON-[facility] (PRIVATE 12/04/2018 ANNAMARIA GATES MD, Ot E03.9 HYPOTHYROIDISM, UNSPECIFIED 12/04/2018 ANNAMARIA GATES MD, Ot E11.9 TYPE 2 DIABETES MELLITUS WITHOUT COMPLIC 12/04/2018 ANNAMARIA GATES MD, Ot E78.00 PURE HYPERCHOLESTEROLEMIA, UNSPECIFIED 12/04/2018 ANNAMARIA GATES MD, Ot G47.33 OBSTRUCTIVE SLEEP APNEA (ADULT) (PEDIATR 12/04/2018 ANNAMARIA GATES MD, Ot G81.94 HEMIPLEGIA, UNSPECIFIED AFFECTING LEFT N 12/04/2018 ANNAMARIA GATES MD, Ot H40.9 UNSPECIFIED GLAUCOMA 12/04/2018 ANNAMARIA GATES MD, Ot I10 ESSENTIAL (PRIMARY) HYPERTENSION 12/04/2018 ANNAMARIA GATES MD, Ot I63.9 CEREBRAL INFARCTION, UNSPECIFIED 12/04/2018 ANNAMARIA GATES MD, Ot K21.9 GASTRO-ESOPHAGEAL REFLUX DISEASE WITHOUT 12/04/2018 ANNAMARIA GATES MD, Ot R29.702 NIHSS SCORE 2 12/04/2018 ANNAMARIA GATES MD, Ot Z79.84 MCC (CURRENT) USE OF ORAL HYPOGLYC 12/04/2018 ANNAMARIA GATES MD, Ot E03.9 HYPOTHYROIDISM, UNSPECIFIED 12/04/2018 ANNAMARIA GATES MD, Ot E11.9 TYPE 2 DIABETES MELLITUS WITHOUT COMPLIC 12/04/2018 ANNAMARIA GATES MD, Ot E78.00 PURE HYPERCHOLESTEROLEMIA, UNSPECIFIED 12/04/2018 ANNAMARIA GATES MD, Ot G47.33 OBSTRUCTIVE SLEEP APNEA (ADULT) (PEDIATR 12/04/2018 ANNAMARIA GATES MD, Ot G81.94 HEMIPLEGIA, UNSPECIFIED AFFECTING LEFT N 12/04/2018 ANNAMARIA GATES MD, Ot H40.9 UNSPECIFIED GLAUCOMA 12/04/2018 ANNAMARIA GATES MD, Ot I10 ESSENTIAL (PRIMARY) HYPERTENSION 12/04/2018 ANNAMARIA GATES MD, Ot I63.9 CEREBRAL INFARCTION, UNSPECIFIED 12/04/2018 ANNAMARIA GATES MD, Ot K21.9 GASTRO-ESOPHAGEAL REFLUX DISEASE WITHOUT 12/04/2018 ANNAMARIA GATES MD, Ot R29.702 NIHSS SCORE 2 12/04/2018 ANNAMARIA GATES MD, Ot Z79.84 MCC (CURRENT) USE OF ORAL HYPOGLYC Procedures There is no data. Results Test [...] urinalysis with reflex to culture NO NRG Methicillin resistant Staphylococcus aureus (MRSA) screening culture - 12:45 Methicillin resistant Staphylococcus aureus (MRSA) screening culture NEG NRG Capillary blood glucose measurement by glucometer (mass/volume) - 11/29/18 15: 14 Capillary blood glucose measurement by glucometer (mass/volume) 209 mg/dL 70-110 Capillary blood glucose measurement by glucometer (mass/volume) - 11/29/18 20: 32 Capillary blood glucose measurement by glucometer (mass/volume) 170 mg/dL 70-110 Complete blood count (CBC) with automated white blood cell (WBC) differential - 11/30/18 03:25 Blood leukocytes automated count (number/volume) 6.4 10*3/uL 4.3-11.0 Blood erythrocytes automated count (number/volume) 3.99 10*6/uL 4.35-5.85 Venous blood hemoglobin measurement (mass/volume) 12.3 g/dL 11.5-16.0 Blood hematocrit (volume fraction) 38 % 35-52 Automated erythrocyte mean corpuscular volume 96 [foz_us] 80-99 Automated erythrocyte mean corpuscular hemoglobin (mass per erythrocyte) 31 pg 25-34 Automated erythrocyte mean corpuscular hemoglobin concentration measurement ( mass/volume) 32 g/dL 32-36 Automated erythrocyte distribution width ratio 13.9 % 10.0-14.5 Automated blood platelet count (count/volume) 207 10*3/uL 130-400 Automated blood platelet mean volume measurement 10.3 [foz_us] 7.4-10.4 Automated blood neutrophils/100 leukocytes 49 % 42-75 Automated blood lymphocytes/100 leukocytes 40 % 12-44 Blood monocytes/100 leukocytes 8 % 0-12 Automated blood eosinophils/100 leukocytes 2 % 0-10 Automated blood basophils/100 leukocytes 1 % 0-10 Blood neutrophils automated count (number/volume) 3.1 10*3 1.8-7.8 Blood lymphocytes automated count (number/volume) 2.6 10*3 1.0-4.0 Blood monocytes automated count (number/volume) 0.5 10*3 0.0-1.0 Automated eosinophil count 0.1 10*3/uL 0.0-0.3 Automated blood basophil count (count/volume) 0.0 10*3/uL 0.0-0.1 Whole blood basic metabolic panel - 11/30/18 03:25 Serum or plasma sodium measurement (moles/volume) 141 mmol/L 135-145 Serum or plasma potassium measurement (moles/volume) 3.0 mmol/L 3.6-5.0 Serum or plasma chloride measurement (moles/volume) 105 mmol/L 98-107 Carbon dioxide 24 mmol/L 21-32 Serum or plasma anion gap determination (moles/volume) 12 mmol/L 5-14 Serum or plasma urea nitrogen measurement (mass/volume) 10 mg/dL 7-18 Serum or plasma creatinine measurement (mass/volume) 0.68 mg/dL 0.60-1.30 Serum or plasma urea nitrogen/creatinine mass ratio 15 NRG Serum or plasma creatinine measurement with calculation of estimated glomerular filtration rate > NRG Serum or plasma glucose measurement (mass/volume) 158 mg/dL 70-105 Serum or plasma calcium measurement (mass/volume) 8.6 mg/dL 8.5-10.1 Serum or plasma phosphate measurement (mass/volume) - 11/30/18 03:25 Serum or plasma phosphate measurement (mass/volume) 2.8 mg/dL 2.3-4.7 Magnesium - 11/30/18 03:25 Magnesium 2.1 mg/dL 1.8-2.4 Lipid 1996 panel - 11/30/18 03:25 Serum or plasma triglyceride measurement (mass/volume) 562 mg/dL <150 Serum or plasma cholesterol measurement (mass/volume) 293 mg/dL < 200 Serum or plasma cholesterol in HDL measurement (mass/volume) 29 mg/ dL 40-60 Cholesterol in LDL [mass/volume] in serum or plasma by direct assay 124 mg/dL 1-129 Serum or plasma cholesterol in VLDL measurement (mass/volume) 112 mg /dL 5-40 Capillary blood glucose measurement by glucometer (mass/volume) - 11/30/18 12: 18 Capillary blood glucose measurement by glucometer (mass/volume) 208 mg/dL 70-110 Capillary blood glucose measurement by glucometer (mass/volume) - 11/30/18 16: 39 Capillary blood glucose measurement by glucometer (mass/volume) 161 mg/dL 70-110 Capillary blood glucose measurement by glucometer (mass/volume) - 11/30/18 20: 49 Capillary blood glucose measurement by glucometer (mass/volume) 202 mg/dL 70-110 Capillary blood glucose measurement by glucometer (mass/volume) - 12/01/18 05: 17 Capillary blood glucose measurement by glucometer (mass/volume) 167 mg/dL 70-110 Complete blood count (CBC) with automated white blood cell (WBC) differential - 12/01/18 05:45 Blood leukocytes automated count (number/volume) 6.7 10*3/uL 4.3-11.0 Blood erythrocytes automated count (number/volume) 3.99 10*6/uL 4.35-5.85 Venous blood hemoglobin measurement (mass/volume) 12.4 g/dL 11.5-16.0 Blood hematocrit (volume fraction) 39 % 35-52 Automated erythrocyte mean corpuscular volume 97 [foz_us] 80-99 Automated erythrocyte mean corpuscular hemoglobin (mass per erythrocyte) 31 pg 25-34 Automated erythrocyte mean corpuscular hemoglobin concentration measurement ( mass/volume) 32 g/dL 32-36 Automated erythrocyte distribution width ratio 14.0 % 10.0-14.5 Automated blood platelet count (count/volume) 213 10*3/uL 130-400 Automated blood platelet mean volume measurement 10.0 [foz_us] 7.4-10.4 Automated blood neutrophils/100 leukocytes 55 % 42-75 Automated blood lymphocytes/100 leukocytes 35 % 12-44 Blood monocytes/100 leukocytes 8 % 0-12 Automated blood eosinophils/100 leukocytes 2 % 0-10 Automated blood basophils/100 leukocytes 0 % 0-10 Blood neutrophils automated count (number/volume) 3.6 10*3 1.8-7.8 Blood lymphocytes automated count (number/volume) 2.3 10*3 1.0-4.0 Blood monocytes automated count (number/volume) 0.5 10*3 0.0-1.0 Automated eosinophil count 0.2 10*3/uL 0.0-0.3 Automated blood basophil count (count/volume) 0.0 10*3/uL 0.0-0.1 Whole blood basic metabolic panel - 12/01/18 05:45 Serum or plasma sodium measurement (moles/volume) 140 mmol/L 135-145 Serum or plasma potassium measurement (moles/volume) 3.2 mmol/L 3.6-5.0 Serum or plasma chloride measurement (moles/volume) 105 mmol/L 98-107 Carbon dioxide 24 mmol/L 21-32 Serum or plasma anion gap determination (moles/volume) 11 mmol/L 5-14 Serum or plasma urea nitrogen measurement (mass/volume) 8 mg/dL 7-18 Serum or plasma creatinine measurement (mass/volume) 0.69 mg/dL 0.60-1.30 Serum or plasma urea nitrogen/creatinine mass ratio 12 NRG Serum or plasma creatinine measurement with calculation of estimated glomerular filtration rate > NRG Serum or plasma glucose measurement (mass/volume) 177 mg/dL 70-105 Serum or plasma calcium measurement (mass/volume) 8.9 mg/dL 8.5-10.1 Serum or plasma phosphate measurement (mass/volume) - 12/01/18 05:45 Serum or plasma phosphate measurement (mass/volume) 3.2 mg/dL 2.3-4.7 Magnesium - 12/01/18 05:45 Magnesium 2.0 mg/dL 1.8-2.4 Capillary blood glucose measurement by glucometer (mass/volume) - 12/01/18 11: 09 Capillary blood glucose measurement by glucometer (mass/volume) 204 mg/dL 70-110 Capillary blood glucose measurement by glucometer (mass/volume) - 12/01/18 16: 48 Capillary blood glucose measurement by glucometer (mass/volume) 196 mg/dL 70-110 Capillary blood glucose measurement by glucometer (mass/volume) - 12/01/18 21: 16 Capillary blood glucose measurement by glucometer (mass/volume) 235 mg/dL 70-110 Complete blood count (CBC) with automated white blood cell (WBC) differential - 12/02/18 04:15 Blood leukocytes automated count (number/volume) 6.5 10*3/uL 4.3-11.0 Blood erythrocytes automated count (number/volume) 3.84 10*6/uL 4.35-5.85 Venous blood hemoglobin measurement (mass/volume) 12.1 g/dL 11.5-16.0 Blood hematocrit (volume fraction) 37 % 35-52 Automated erythrocyte mean corpuscular volume 96 [foz_us] 80-99 Automated erythrocyte mean corpuscular hemoglobin (mass per erythrocyte) 32 pg 25-34 Automated erythrocyte mean corpuscular hemoglobin concentration measurement ( mass/volume) 33 g/dL 32-36 Automated erythrocyte distribution width ratio 13.9 % 10.0-14.5 Automated blood platelet count (count/volume) 206 10*3/uL 130-400 Automated blood platelet mean volume measurement 10.4 [foz_us] 7.4-10.4 Automated blood neutrophils/100 leukocytes 53 % 42-75 Automated blood lymphocytes/100 leukocytes 37 % 12-44 Blood monocytes/100 leukocytes 8 % 0-12 Automated blood eosinophils/100 leukocytes 2 % 0-10 Automated blood basophils/100 leukocytes 0 % 0-10 Blood neutrophils automated count (number/volume) 3.5 10*3 1.8-7.8 Blood lymphocytes automated count (number/volume) 2.4 10*3 1.0-4.0 Blood monocytes automated count (number/volume) 0.5 10*3 0.0-1.0 Automated eosinophil count 0.1 10*3/uL 0.0-0.3 Automated blood basophil count (count/volume) 0.0 10*3/uL 0.0-0.1 Whole blood basic metabolic panel - 12/02/18 04:15 Serum or plasma sodium measurement (moles/volume) 144 mmol/L 135-145 Serum or plasma potassium measurement (moles/volume) 3.2 mmol/L 3.6-5.0 Serum or plasma chloride measurement (moles/volume) 106 mmol/L 98-107 Carbon dioxide 26 mmol/L 21-32 Serum or plasma anion gap determination (moles/volume) 12 mmol/L 5-14 Serum or plasma urea nitrogen measurement (mass/volume) 7 mg/dL 7-18 Serum or plasma creatinine measurement (mass/volume) 0.71 mg/dL 0.60-1.30 Serum or plasma urea nitrogen/creatinine mass ratio 10 NRG Serum or plasma creatinine measurement with calculation of estimated glomerular filtration rate > NRG Serum or plasma glucose measurement (mass/volume) 149 mg/dL 70-105 Serum or plasma calcium measurement (mass/volume) 8.9 mg/dL 8.5-10.1 Serum or plasma phosphate measurement (mass/volume) - 12/02/18 04:15 Serum or plasma phosphate measurement (mass/volume) 3.9 mg/dL 2.3-4.7 Magnesium - 12/02/18 04:15 Magnesium 2.0 mg/dL 1.8-2.4 Capillary blood glucose measurement by glucometer (mass/volume) - 12/02/18 11: 32 Capillary blood glucose measurement by glucometer (mass/volume) 190 mg/dL 70-110 Capillary blood glucose measurement by glucometer (mass/volume) - 12/02/18 16: 12 Capillary blood glucose measurement by glucometer (mass/volume) 147 mg/dL 70-110 Capillary blood glucose measurement by glucometer (mass/volume) - 12/02/18 22: 40 Capillary blood glucose measurement by glucometer (mass/volume) 162 mg/dL 70-110 Capillary blood glucose measurement by glucometer (mass/volume) - 12/03/18 05: 28 Capillary blood glucose measurement by glucometer (mass/volume) 162 mg/dL 70-110 Capillary blood glucose measurement by glucometer (mass/volume) - 12/03/18 12: 10 Capillary blood glucose measurement by glucometer (mass/volume) 187 mg/dL 70-110 Lipid 1996 panel - 12/03/18 14:47 Serum or plasma triglyceride measurement (mass/volume) 564 mg/dL <150 Serum or plasma cholesterol measurement (mass/volume) 237 mg/dL < 200 Serum or plasma cholesterol in HDL measurement (mass/volume) 29 mg/ dL 40-60 Cholesterol in LDL [mass/volume] in serum or plasma by direct assay 100 mg/dL 1-129 Serum or plasma cholesterol in VLDL measurement (mass/volume) 113 mg /dL 5-40 Capillary blood glucose measurement by glucometer (mass/volume) - 12/03/18 15: 41 Capillary blood glucose measurement by glucometer (mass/volume) 156 mg/dL 70-110 Capillary blood glucose measurement by glucometer (mass/volume) - 12/03/18 20: 40 Capillary blood glucose measurement by glucometer (mass/volume) 179 mg/dL 70-110 Capillary blood glucose measurement by glucometer (mass/volume) - 12/04/18 05: 06 Capillary blood glucose measurement by glucometer (mass/volume) 157 mg/dL 70-110 Encounters ACCT No. Visit Date/Time Discharge Status Pt. Type Provider Facility Loc./Unit Complaint [id number] 11/29/2018 09:37:00 12/04/2018 09:18:00 DIS Inpatient KODY GONZALEZ, ANNAMARIA [facility] 4TH CVA, LEFT SIDED WEAKNESS [id number] 03/12/2017 19:18:00 03/12/2017 21:41:00 DIS Emergency DAVID BUENO [facility] ER R MID CALF SPIDER BITE [id number] 12/14/2016 17:07:00 12/14/2016 17:23:00 DIS Emergency VIKASH GONZALEZ, KITA Fuentes [facility] ER REMOVAL OF STITCHES [id number] 12/06/2016 15:46:00 12/06/2016 17:36:00 DIS Emergency BHAVNA MALIN APRN [facility] ER DIZZINESS,POSSIBLE STAPH INFECTION [id number] 06/16/2015 19:05:00 06/16/2015 19:43:00 DIS Emergency JESUS GONZALEZ, SHIRA Santoro [facility] ER ELEVATED BLOOD SUGAR [id number] 10/05/2013 19:24:00 10/05/2013 23:59:59 CLS Outpatient [id number] 12/04/2018 09:49:00 ACT Inpatient LOREN MILLER DO [facility] IRF CVA [id number] 10/05/2013 19:45:00 10/05/2013 23:59:59 CLS Outpatient
--- NOTE | 2018-12-04 10:07 | NUR ---
UPDATED MED REC TO THE LIST OF MEDICATIONS REPORTED UPON ADMISSION TO ICU. NOTE THE FOLLOWING CHANGES WERE MADE WHEN THE PATIENT DISCHARGED TO REHAB THAT ARE NOT CURRENTLY REFLECTED ON THE HOME MED REC: START TAKING: ASPIRIN 81MG DAILY ATORVASTATIN 20MG HS
[2018-12-04] MEDS ORDERED: ONDANSETRON 4 MG/2 ML (SDV) Z0FRAN IVP PRN (10:30)
[2018-12-04] MEDS ORDERED: LOPERAMIDE 2 MG (IMODIUM) CAP PO PRN (10:30)
[2018-12-04] MEDS ORDERED: CALCIUM CARBONATE 500 MG (TUMS) TAB.CHEW PO PRN (10:30)
[2018-12-04] MEDS ORDERED: DOCUSATE SODIUM 100 MG (COLACE) CAP PO PRN (10:30)
[2018-12-04] MEDS ORDERED: BISACODYL 10 MG SUPP (DULCOLAX) PR PRN (10:30)
[2018-12-04] MEDS ORDERED: ACETAMINOPHEN 500 MG TAB (TYLENOL) PO PRN (10:30)
[2018-12-04] MEDS ORDERED: MILK OF MAGNESIA 400 MG/5 ML 30 ML UDC PO PRN (10:30)
[2018-12-04] MEDS ORDERED: ALPRAZolam 0.25 MG (XANAX) TAB PO PRN (10:30)
[2018-12-04] MEDS ORDERED: MELATONIN 3 MG TABLET PO PRN (10:30)
[2018-12-04] MEDS ORDERED: diphenhydrAMINE 25 MG TAB (BENADRYL) PO PRN (10:30)
[2018-12-04] MEDS ORDERED: ONDANSETRON 4 MG (ZOFRAN) ORAL DISSOLVE TAB PO PRN (10:30)
[2018-12-04] MEDS ORDERED: RT-ALBUTEROL/IPRATROPIUM 3 ML (DUONEB) VIAL INH PRN (10:45)
--- NOTE | 2018-12-04 10:45 | Physical Therapy Evaluation ---
PT Evaluation-General Medical Diagnosis Admission Date Dec 04, 2018 at 09:49 Medical Diagnosis: CVA Onset Date: Nov 29, 2018 Therapy Diagnosis Therapy Diagnosis: impaired mobility, strength, endurance, balance Height/Weight Height (Feet): 5 Height (Inches): 6.00 Weight (Pounds): 306 Weight (Ounces): 0.0 Referral Physician: Leisa Singh DO Reason for Referral: Evaluation/Treatment Medical History Pertinent Medical History: DM, GERD, HTN, Hypothroidism Social History Home: Single Level Current Living Status: Alone Prior/Core FIM Prior Level of Function Therapy Code Descriptions/Definitions Functional [place] Measure: 0=Not Assessed/NA 4=Minimal Assistance 1=Total Assistance 5=Supervision or Setup 2=Maximal Assistance 6=Modified [place] 3=Moderate Assistance 7=Complete [place] Therapy Quality Codes: 6 Independent with activity with or without an assistive device 5 Patient requires set up or clean up by helper. Patient completes activity by themselves 4 Supervision or touching assist (CGA). [place] provide cues , steadying assist 3 The helper provides less than half the effort to complete the activity 2 The helper provides more than half the effort to complete the activity 1 Dependent. The helper does all the effort to complete an activity 7 Patient refused to complete or attempt activity 9 The patient did not perform the activity before the current illness or injury 88 Not attempted due to Medical conditions or safety concerns Functional Abilities and Goals: Independent: Patient completed the activities by him/herself, with or without an assistive device, with no assistance from a helper. Needed Some Help: Patient needed partial assistance from another person to complete activities. Dependent: A helper completed the activities for the patient. Unknown: Not Applicable: Bed Mobility: 7 Transfers (B,C,W/C) (FIM): 7 Gait: 7 Indoor Mobility (Ambulation): Independent Prior Devices Use: None PT Evaluation-Current Subjective Patient in bed pre tx, agrees to PT, has some complaints of pain in both shoulders. Will be co-treating with OT due to poor patient balance, endurance, general mobility. Pt/Family Goals Patient states she wants to get stronger and walk again. Objective Patient Orientation: Person, Place, Situation Attachments: Curry Catheter ROM/Strength ROM Lower Extremities WNL Strenght Lower Extremities right lower extremity (hip flexion 4/5, knee flexion 5/5, knee extension 5/5, dorsiflexion 5/5), left lower extremity (hip flexion 1/5, knee flexion 0/5, knee extension 3-/5, dorsiflexion 0/5) Neuromuscular (Tone, Coordination, Reflexes) NT Sensory Vision: Functional Hearing: Functional Sensation Right Lower Extremit: Intact Sensation Left Lower Extremity: Intact Transfers Therapy Code Descriptions/Definitions Functional [place] Measure: 0=Not Assessed/NA 4=Minimal Assistance 1=Total Assistance 5=Supervision or Setup 2=Maximal Assistance 6=Modified [place] 3=Moderate Assistance 7=Complete [place] Therapy Quality Codes: 6 Independent with activity with or without an assistive device 5 Patient requires set up or clean up by helper. Patient completes activity by themselves 4 Supervision or touching assist (CGA). [place] provide cues , steadying assist 3 The helper provides less than half the effort to complete the activity 2 The helper provides more than half the effort to complete the activity 1 Dependent. The helper does all the effort to complete an activity 7 Patient refused to complete or attempt activity 9 The patient did not perform the activity before the current illness or injury 88 Not attempted due to Medical conditions or safety concerns Transfers (B, C, W/C) (FIM): 2 Scootin Rollin Roll Left to Right (QC): 2 Supine to/from Sit: 2 Sit to/from Stand: 3 bed t/f WC(FIM only if WC use): 2 Sit to Lying (QC): 2 Lying to Sitting/Side of Bed(Q: 2 Sit to Stand (QC): 2 Chair/Xfm-on-Aqlue Xfer(QC): 2 Car Transfer (QC): 2 Patient performs bed mobility with mod assist, supine to sit with max assist, sit to stand with mod assist, and transfers with max assist, car transfers max assist. Patient needs cues for safety and hand placement. Has a lot of trouble with sit to stand. Gait Does the Patient Walk?: Yes Mode of Locomotion: Walk Anticipated Mode of Locomotion: Walk Gait (FIM): 1 Walk 10 feet (QC): 88 Walk 50 ft with 2 Turns(QC): 88 Walk 150 ft (QC): 88 Walking 10ft/uneven surface-QC: 88 Distance: 8'x2 Gait Level of Assist: 2 Gait Persons Needed: 1 Gait Assistive Device: Parallel Bars Comments/Gait Description Patient can ambulate 8' in the parallel bars with max assist, she needs assist with balance and assist to slide her left foot forward. She can advance her right foot on her own. Wheelchair Training Does the Pt Use a Wheelchair?: Yes Wheelchair (FIM): 1 Type of Wheelchair: Manual Stairs 1 Step (curb) (QC): 88 4 Steps (QC): 88 12 Steps (QC): 88 If not tested on admit;explain Patient cannot performs stairs safely at this time due to balance and strength impairments. Balance Sitting Static: Fair Sitting Dynamic: Poor Standing Static: Poor Standing Dynamic: Poor Treatment dressing, bathing with OT. PT and OT co-treated for 60 min from [id number]. PT performed transfers and assisted with balance during dressing and bathing and OT performed the dressing and bathing. Assessment/Needs Patient has left hemiparesis post CVA. She has impaired strength, balance, endurance. She is a fall risk. Rehab Potential: Fair PT Short Term Goals Short Term Goals Time Frame: Dec 11, 2018 Transfers (B,C,W/C) (FIM): 3 Gait (FIM): 1 Gait Distance Comment: 10' Gait Level of Assist: 3 Gait Assistive Device: Walker Robby PT Shipbuilding Draftsperson Goals Assisted Goals PT Shipbuilding Draftsperson Goals Time Frame: Dec 25, 2018 Transfers (B,C,W/C) (FIM): 4 Sit to Lying (QC): 3 Lying-Sitting on Side/Bed(QC): 3 Sit to Stand (QC): 3 Rollin Roll Left to Right (QC): 3 Chair/Fby-cw-Dxdav Xfer(QC): 3 Car Transfer (QC): 3 Gait (FIM): 2 Distance: 50' Walk 10 feet (QC): 3 Walk 10ft-Uneven Surface(QC): 3 Walk 50ft with 2 Turns (QC): 3 Walk 150 ft (QC): 3 Gait Level of Assist: 4 Gait Assistive Device: Walker Robby Stairs (FIM): 1 # of Steps: 1 1 Step (curb) (QC): 3 Stairs Level Of Assist: 4 PT Plan Problem List Problem List: Activity Tolerance, Functional Strength, Safety, Balance, Gait, Transfer, Bed Mobility, ROM Treatment/Plan Treatment Plan: Continue Plan of Care Treatment Plan: Bed Mobility, Concurrent Therapy, Education, Functional Activity Angelita, Functional Strength, Group Therapy, Gait, Safety, Therapeutic Exercise, Transfers Treatment Duration: Dec 25, 2018 Frequency: At least 5 of 7 days/Wk (IRF) Estimated Hrs Per Day: 1.5 hours per day Patient and/or Family Agrees t: Yes Safety Risks/Education Patient Education: Gait Training, Transfer Techniques, Correct Positioning, W/ C Management, Safety Issues Teaching Recipient: Patient Teaching Methods: Demonstration, Discussion Response to Teaching: Reinforcement Needed Discharge Recommendations Plan Patient will perform bed mobility and transfer training, balance and endurance training, functional strengthening, stair training, gait training, and education , to improve functional mobility and independence at home. Therapy D/C Recommendations: Home w/ Family Support, Snf (TCU/NH) Time/GCodes Time In: 0900 Time Out: 1040 Total Billed Treatment Time: 90 Total Billed Treatment 1 visit EVM 30' FA 60' PT performed eval from [id number], OT performed eval from [id number], co-treated from [id number]. MEGHAN DYER PT Dec 04, 2018 10:45
[2018-12-04] MEDS ORDERED: FLU QUADRIvalent (5+ YOA) 2018-2019 (AFLURIA) 0.5 ML IM ONE (11:15)
--- NOTE | 2018-12-04 11:15 | ST Cognitive Linguistic Eval ---
Speech Evaluation-General Medical Diagnosis CVA Onset Date: Nov 29, 2018 Therapy Diagnosis Therapy Diagnosis: Cognitive-Communication, Oropharyngeal Dysphagia Precautions Precautions: Aspiration Precautions/Isolations: Fall Prevention, Standard Precautions, Pressure Ulcer Medical History Pertinent Medical History: DM, GERD, HTN, Hypothroidism Reviewed History: Yes Social History Current Living Status: Alone Speech PLF-Current Status Prior Level of Function Prior to the patient's CVA she lived alone and was able to tend to all of her daily tasks independently. Subjective Patient was pleasant and cooperative with the bedside evaluation for cognitive- communication. Language Eval: Auditory Comprehends Simple Yes/No Ques: Functional Indent/Objects Multiple [place]: Functional Ident/Pics in Multiple Proctor: Functional Follows 1-Step Commands: Functional Follows Complex Directions: Functional Follows General Conversations: Functional Language Eval: Verbal Language Completes Spontaneous Greeting: Functional Produces Auto, Serial Info: Functional Imitates Simple Words/Phrases: Functional Word Finding: Functional Requests Basic Needs: Functional States Basic Personal Info: Functional Expresses Complex Ideas: Functional Objective Cognitive Domain Attention: WNL Memory: WNL Problem Solving: Functional Executive Functions: [facility] Objective Formal/Standardized Tests [facility] Cognitive-Communication Bedside Dysphagia Evaluation Results Memory: Immediate 3/3, Delayed without cues 3/3, Orientation: 5/5, Problem Solving: Simple 5/5, Complex 5/5 Auditory Processin/5 Patient has mild oral motor deficit for oral intake. Patient is currently on Dysphagia II diet level with thin liquids. Oral Motor/Speech Production Within Functional Limits Impression Patient is a pleasant 68 year old female with high level cognitive skills. She does present with mild oral motor deficit for safe oral intake. Her intake has increased as she has improved s/p onset of the CVA. Communication/Social Cognition Comprehension: 7 Expression: 7 Social Interaction: 7 Problem Solvin Memory: 7 Speech Patient Assess Expression of Ideas/Wants: Expression (4) Understanding Verbal Content: Understands (4) Brief Interview-Mental Status: Yes Repetition of Three Words: Three (3) Temporal Orientation: Year: Correct (3) Temporal Orientation: Day: Correct (1) Recall : Wear to say "Sock": Yes, no cue required (2) Recall : Color: Yes, no cue required (2) Recall : Bed: Yes, no cue required (2) Memory/Recall Ability: Current season, Staff names and faces, That he or she is in a hsp/hsp unit Speech Short Term Goals Short Term Goals Short Term Goals 1) Patient will utilize compensatory strategies as trained for safe oral intake of the least restrictive diet with 90% or greater. 2) Patient will demonstrate safe oral intake of the least restrictive diet level with 90% or greater. Speech Adjunct Professor Goals Adjunct Professor Goals Patient will maintain adequate nutrition/hydration via safe effective swallow function. Speech-Plan Patient/Family Goals Patient/Family Goals: Patient plans to return home with family support post rehab. Treatment Plan Speech Therapy Treatment Plan: Continue Plan of Care Patient is expected to progress as a result of skilled ST services. Treatment Duration: Dec 12, 2018 Frequency: 5 times per week Estimated Hrs Per Day: .5 hour per day Rehab Potential: Fair Barriers to Learning: New onset of CVA Pt/Family Agrees to Plan: Yes Safety Risks/Education Teaching Recipient: Patient Teaching Methods: Discussion Response to Teaching: Verbalize Understanding Education Topics Provided: Safety of oral intake. Time Speech Therapy Time In: 10:55 Speech Therapy Time Out: 11:10 Total Billed Time: 15 Billed Treatment Time 1, SPSMONTY Wang Dec 04, 2018 11:15
[2018-12-04] MEDS: inSUlin ASPART (NovoLOG) 1 UNIT/0.01 ML (CHARGE PER UNIT) SC SCH ×3 (11:39→21:46)
[2018-12-04] MEDS: HYDROcodone/APAP 7.5 MG/325 MG (LORTAB, LORCET PLUS) TABLET PO PRN (12:35)
--- NOTE | 2018-12-04 12:41 | NUR ---
Curry catheter removed per orders.
--- NOTE | 2018-12-04 13:07 | Occupational Therapy Eval ---
OT Evaluation-General/PLF Medical Diagnosis Admission Date Dec 04, 2018 at 09:49 Medical Diagnosis: CVA Onset Date: Nov 29, 2018 Therapy Diagnosis Therapy Diagnosis: decreased self care skills Height/Weight Height (Feet): 5 Height (Inches): 6.00 Weight (Pounds): 306 Weight (Ounces): 0.0 Precautions Precautions/Isolations: Fall Prevention, Standard Precautions, Pressure Ulcer Referral Physician: Leisa Singh DO Medical History Pertinent Medical History: DM, GERD, HTN, Hypothroidism Current History Pt admitted to ARU following acute hospitalization for CVA with left side deficits. Social History Home: Single Level Current Living Status: Alone Entry Into Home: Stairs Without Railing Steps Into Home: 3 ADL-Prior Level of Function Therapy Code Descriptions/Definitions Functional [place] Measure: 0=Not Assessed/NA 4=Minimal Assistance 1=Total Assistance 5=Supervision or Setup 2=Maximal Assistance 6=Modified [place] 3=Moderate Assistance 7=Complete [place] Therapy Quality Codes: 6 Independent with activity with or without an assistive device 5 Patient requires set up or clean up by helper. Patient completes activity by themselves 4 Supervision or touching assist (CGA). [place] provide cues , steadying assist 3 The helper provides less than half the effort to complete the activity 2 The helper provides more than half the effort to complete the activity 1 Dependent. The helper does all the effort to complete an activity 7 Patient refused to complete or attempt activity 9 The patient did not perform the activity before the current illness or injury 88 Not attempted due to Medical conditions or safety concerns Functional Abilities and Goals: Independent: Patient completed the activities by him/herself, with or without an assistive device, with no assistance from a helper. Needed Some Help: Patient needed partial assistance from another person to complete activities. Dependent: A helper completed the activities for the patient. Unknown: Not Applicable: ADL PLOF Comments Pt reports being independent with self care and mobility prior to admission Self Care: Independent Functional Cognition: Independent DME/Equipment: Tub/Shower Drive Self: Yes OT Current Status Subjective Pt agreeable to therapy this am. Reports 6/10 generalized pain. Pt reports pain in both shoulder Right >left secondary to torn rotator cuffs Mental Status/Objective Patient Orientation: Person, Place, Situation Current Glasses/Contacts: Yes (reading glasses) Hearing Aids: No Dentures/Partials: No Hand Dominance: Right Upper Extremity ROM Right UE grossly functional. Pt reports pain in right shoulder secondary to torn rotator cuff. Left UE: Pt demonstrates minimal active shoulder retraction and elevation, elbow flex/ext in gravity eliminated position, wrist ext, and finger flexion. Upper Extremity Coordination impaired left UE ADL-Treatment ADL-Current Pt participated in UE assessment while seated. Co-treat with PT secondary to impaired balance, activity tolerance, mobility and level of skilled assist required. To shower room via w/c. Pt stood with max assist using grab bar. Pt completed seated bathing using hand held shower. Pt has decreased sitting balance on shower bench, requires occasional assist for balance. Pt able to wash /dry left UE, chest, abdomen, and bilateral upper legs. Assist required for right UE, cari area, bilateral lower legs, and buttocks. Max assist to don pullover shirt. Pt required assist to thread catheter and bilateral LE into pant legs. Sit to stand with max assist. Pt requires assist to pull pants up over hips. Total assist to doff/don socks. Pt combed hair with right UE with SBA and increased time. Pt able to open toothpaste and place on toothbrush. Then brushed teeth with SBA. Pt transferred w/c to chair with maximal assistance. OT focusing on ADL completion, UE management, and safety. PT focusing on transfers, balance during ADLs, and safety. Pt sitting in chair with needs met after session. Grooming (FIM): 5 Oral Hygiene (QC): 4 Bathing (FIM): 3 Shower/Bathe Self (QC): 3 Upper Body Dressing (FIM): 2 Upper Body Dressing (QC): 2 Lower Body Dressing (FIM): 1 Lower Body Dressing (QC): 1 On/Off Footwear (QC): 1 Shower Transfer (FIM): 2 Education OT Patient Education: Rehab process Teaching Recipient: Patient Teaching Methods: Discussion Response to Teaching: Verbalize Understanding OT Short Term Goals Short Term Goals Time Frame: Dec 11, 2018 Upper Body Dressing(FIM): 3 Lower Body Dressing(FIM): 3 Toileting(FIM): 3 Toilet/Commode Transfer(FIM): 3 Additional Short Term Goals: 1-Demonstrate ADL Tasks, 2-Verbalize Understanding , 3-ImproveStrength/Angelita 1=Demonstrate adherence to instructed precautions during ADL tasks. 2=Patient will verbalize/demonstrate understanding of assistive devices/ modifications for ADL. 3=Patient will improve strength/tolerance for activity to enable patient to perform ADL's. OT Nocturnist Goals Detention Goals Time Frame: Dec 28, 2018 Eating (FIM): 6 Eating (QC): 6 Groomin Oral Hygiene (QC): 6 Bathing(FIM): 4 Shower/Bathe Self (QC): 4 Upper Body Dressing(FIM): 5 Upper Body Dressing (QC): 5 Lower Body Dressing(FIM): 5 Lower Body Dressing (QC): 5 On/Off Footwear (QC): 5 Toileting(FIM): 5 Toileting Hygiene (QC): 5 Toilet/Commode Transfer(FIM): 5 Toilet/Commode Transfer (QC): 5 Shower Transfer(FIM): 5 Additional Goals: 1-Demonstrate ADL Tasks, 2-Verbalize Understanding, 3- ImproveStrength/Angelita 1=Demonstrate adherence to instructed precautions during ADL tasks. 2=Patient will verbalize/demonstrate understanding of assistive devices/ modifications for ADL. 3=Patient will improve strength/tolerance for activity to enable patient to perform ADL's. OT Education/Plan Problem List/Assessment Assessment: Decreased Activ Tolerance, Decreased UE Strength, Dependent Transfers, Impaired Coordination, Impaired Funct Balance, Impaired I ADL's, Impaired Self-Care Skills Pt admitted to ARU following acute hospitalization for CVA. Pt demonstrates impaired ADL functioning, mobility, activity tolerance, and strength. Pt to benefit from skilled OT intervention for ADL training, transfers, strengthening , and safety education to increase level of independence and allow safe discharge plan. Discharge Recommendations Plan/Recommendations: Continue POC Treatment Plan/Plan of Care Treatment,Training & Education: Yes Patient would benefit from OT for education, treatment and training to promote independence in ADL's, mobility, safety and/or upper extremity function for ADL' s. Plan of Care: ADL Retraining, Functional Mobility, Group Exercise/Act as Ind, UE Funct Exercise/Act, UE Neuromus Re-Ed/Coord Treatment Duration: Dec 28, 2018 Frequency: At least 5 of 7 days/Wk (IRF) Estimated Hrs Per Day: 1.5 hours per day Agreement: Yes Rehab Potential: Fair Time/GCodes Start Time: 09:30 Stop Time: 10:40 Total Time Billed (hr/min): 70 Billed Treatment Time 1 visit, EVM(10minutes), ADLx4(60minutes) Co-treat with PT 60minutes CATALINA CHERY OT Dec 04, 2018 13:07
[2018-12-04 13:34] VITALS: BP 149/76
--- NOTE | 2018-12-04 13:59 | Occupational Ther Daily Note ---
OT Current Status-Daily Note Subjective Pt sitting in chair, agrees to therapy. Pt reports 7/10 pain in right shoulder. Mental Status/Objective Therapy Code Descriptions/Definitions Functional [place] Measure: 0=Not Assessed/NA 4=Minimal Assistance 1=Total Assistance 5=Supervision or Setup 2=Maximal Assistance 6=Modified [place] 3=Moderate Assistance 7=Complete [place] ADL-Treatment Therapy Code Descriptions/Definitions Functional [place] Measure: 0=Not Assessed/NA 4=Minimal Assistance 1=Total Assistance 5=Supervision or Setup 2=Maximal Assistance 6=Modified [place] 3=Moderate Assistance 7=Complete [place] Therapy Quality Codes: 6 Independent with activity with or without an assistive device 5 Patient requires set up or clean up by helper. Patient completes activity by themselves 4 Supervision or touching assist (CGA). [place] provide cues , steadying assist 3 The helper provides less than half the effort to complete the activity 2 The helper provides more than half the effort to complete the activity 1 Dependent. The helper does all the effort to complete an activity 7 Patient refused to complete or attempt activity 9 The patient did not perform the activity before the current illness or injury 88 Not attempted due to Medical conditions or safety concerns Eating (FIM): 5 (Pt reports feeding self lunch after set up.) Eating (QC): 5 Other Treatment Pt participated in left UE activity to promote increased active ROM and strength. AAROM/PROM left shoulder x10. Elbow flex/ext in gravity eliminated position with minimal active movement. PROM forearm pronation/supination. Pt demonstrates minimal active wrist extension, but fatigues quickly. Pt able to actively flex fingers, but requires PROM for extension. Pt sitting in chair with needs met after session. OT Short Term Goals Short Term Goals Time Frame: Dec 11, 2018 Upper Body Dressing(FIM): 3 Lower Body Dressing(FIM): 3 Toileting(FIM): 3 Toilet/Commode Transfer(FIM): 3 Additional Short Term Goals: 1-Demonstrate ADL Tasks, 2-Verbalize Understanding , 3-ImproveStrength/Angelita 1=Demonstrate adherence to instructed precautions during ADL tasks. 2=Patient will verbalize/demonstrate understanding of assistive devices/ modifications for ADL. 3=Patient will improve strength/tolerance for activity to enable patient to perform ADL's. OT Halfway Goals Halfway Goals Time Frame: Dec 28, 2018 Eating (FIM): 6 Eating (QC): 6 Groomin Oral Hygiene (QC): 6 Bathing(FIM): 4 Shower/Bathe Self (QC): 4 Upper Body Dressing(FIM): 5 Upper Body Dressing (QC): 5 Lower Body Dressing(FIM): 5 Lower Body Dressing (QC): 5 On/Off Footwear (QC): 5 Toileting(FIM): 5 Toileting Hygiene (QC): 5 Toilet/Commode Transfer(FIM): 5 Toilet/Commode Transfer (QC): 5 Shower Transfer(FIM): 5 Additional Goals: 1-Demonstrate ADL Tasks, 2-Verbalize Understanding, 3- ImproveStrength/Angelita 1=Demonstrate adherence to instructed precautions during ADL tasks. 2=Patient will verbalize/demonstrate understanding of assistive devices/ modifications for ADL. 3=Patient will improve strength/tolerance for activity to enable patient to perform ADL's. OT Education/Plan Discharge Recommendations Plan/Recommendations: Continue POC Treatment Plan/Plan of Care Patient would benefit from OT for education, treatment and training to promote independence in ADL's, mobility, safety and/or upper extremity function for ADL' s. Plan of Care: ADL Retraining, Functional Mobility, Group Exercise/Act as Ind, UE Funct Exercise/Act, UE Neuromus Re-Ed/Coord Treatment Duration: Dec 28, 2018 Frequency: At least 5 of 7 days/Wk (IRF) Estimated Hrs Per Day: 1.5 hours per day Agreement: Yes Rehab Potential: Fair Time/GCodes Start Time: 13:10 Stop Time: 13:30 Total Time Billed (hr/min): 20 Billed Treatment Time 1 visit, EX(20minutes) CATALINA CHERY OT Dec 04, 2018 13:59
[2018-12-04 18:09] VITALS: BP 148/75
--- NOTE | 2018-12-04 18:36 | NUR ---
Patient is voiding without difficulty. Just voided 500mls.
[2018-12-04] MEDS: RT-ALBUTEROL/IPRATROPIUM 3 ML (DUONEB) VIAL INH SCH (20:24)
[2018-12-04] MEDS: CELECOXIB 100 MG (CeleBREX) CAP PO SCH (21:26)
[2018-12-04] MEDS: ACETAMINOPHEN 325 MG TABLET PO PRN (21:26)
[2018-12-04] MEDS: ATORVASTATIN 20 MG (LIPITOR) TABLET PO SCH (21:27)
[2018-12-04] MEDS: DOCUSATE SODIUM 100 MG (COLACE) CAP PO SCH (21:27)
[2018-12-04] MEDS: ENOXAPARIN 40 MG/0.4 ML (LOVENOX) SYR SC SCH (21:27)
[2018-12-05] MEDS: inSUlin ASPART (NovoLOG) 1 UNIT/0.01 ML (CHARGE PER UNIT) SC SCH ×4 (05:57→21:44)
[2018-12-05 06:04] VITALS: BP 143/76
[2018-12-05 06:06] LABS: BASOPHILS % (AUTO) 1 % (0-10); EOSINOPHILS # (AUTO) 0.1 10^3/uL (0.0-0.3); EOSINOPHILS % (AUTO) 2 % (0-10); HEMATOCRIT 39 % (35-52); HEMOGLOBIN 12.4 G/DL (11.5-16.0); LYMPHOCYTES # (AUTO) 1.8 X 10^3 (1.0-4.0); LYMPHOCYTES % (AUTO) 30 % (12-44); MEAN CORPUSCULAR HEMOGLOBIN 31 PG (25-34); MEAN CORPUSCULAR HGB CONC 32 G/DL (32-36); MEAN CORPUSCULAR VOLUME 98 FL (80-99); MEAN PLATELET VOLUME 10.2 FL (7.4-10.4); MONOCYTES # (AUTO) 0.5 X 10^3 (0.0-1.0); MONOCYTES % (AUTO) 8 % (0-12); NEUTROPHILS # (AUTO) 3.6 X 10^3 (1.8-7.8); NEUTROPHILS % (AUTO) 60 % (42-75); PLATELET COUNT 204 10^3/uL (130-400); RED CELL DISTRIBUTION WIDTH 13.7 % (10.0-14.5)
[2018-12-05 06:37] LABS: ALANINE AMINOTRANSFERASE 19 U/L (0-55); ALBUMIN 3.6 GM/DL (3.2-4.5); ALKALINE PHOSPHATASE 58 U/L (40-136); BILIRUBIN,TOTAL 0.5 MG/DL (0.1-1.0); BUN/CREATININE RATIO 15; CARBON DIOXIDE 27 MMOL/L (21-32); CHLORIDE 104 MMOL/L (98-107); CREATININE SERUM 0.68 MG/DL (0.60-1.30); GFR ESTIMATED > 60; GLUCOSE 164 MG/DL (70-105); POTASSIUM 3.4 MMOL/L (3.6-5.0); SODIUM 139 MMOL/L (135-145); TOTAL PROTEIN 6.2 GM/DL (6.4-8.2)
[2018-12-05] MEDS: LEVOTHYROXINE 50 MCG (LEVOTHROID) TAB PO SCH (07:13)
[2018-12-05] MEDS: ACETAMINOPHEN 325 MG TABLET PO PRN (07:13)
--- NOTE | 2018-12-05 07:58 | Occupational Ther Daily Note ---
OT Current Status-Daily Note Subjective Pt alert, lying in bed. Pt agrees to therapy. Mental Status/Objective Patient Orientation: Person, Place, Time, Situation Therapy Code Descriptions/Definitions Functional [place] Measure: 0=Not Assessed/NA 4=Minimal Assistance 1=Total Assistance 5=Supervision or Setup 2=Maximal Assistance 6=Modified [place] 3=Moderate Assistance 7=Complete [place] ADL-Treatment Pt declined shower, sponge bath or changing clothing. Mod A for supine to EOB. Co-treat with PT for skilled instruction and care due to decreased mobility and activity tolerance. PT worked on transfers, ambulation and LE strengthening /stretching. OT worked on grooming, toileting, L UE wt bearing and APROM. After therapy, pt sitting in recliner with call light/phone in reach. All needs met in room. Therapy Code Descriptions/Definitions Functional [place] Measure: 0=Not Assessed/NA 4=Minimal Assistance 1=Total Assistance 5=Supervision or Setup 2=Maximal Assistance 6=Modified [place] 3=Moderate Assistance 7=Complete [place] Therapy Quality Codes: 6 Independent with activity with or without an assistive device 5 Patient requires set up or clean up by helper. Patient completes activity by themselves 4 Supervision or touching assist (CGA). [place] provide cues , steadying assist 3 The helper provides less than half the effort to complete the activity 2 The helper provides more than half the effort to complete the activity 1 Dependent. The helper does all the effort to complete an activity 7 Patient refused to complete or attempt activity 9 The patient did not perform the activity before the current illness or injury 88 Not attempted due to Medical conditions or safety concerns Grooming (FIM): 6 (Sitting at sink, pt able to complete by self.) Oral Hygiene (QC): 6 Toileting (FIM): 3 (Min A for standing while pt manipulates R side of clothing and cleanses buttocks. Assist for manipulating L side and cleansing cari area.) Toileting Hygiene (QC): 3 Toilet/Commode Transfer (FIM): 3 (Mod A with SPT) Toilet Transfer (QC): 3 Other Treatment Pt demonstrated slight grasp with L hand while working on wt bearing with ambulation using parallel bars. Slight active movement noted with L shldr flex/ ext, bicep flex/ext, wrist flex/ext and finger flex. Pt anxious about L side of body progress. Continue to encourage pt with progress being made. After therapy, pt sitting in recliner with call light/phone in reach. All needs met in room. OT Short Term Goals Short Term Goals Time Frame: Dec 11, 2018 Upper Body Dressing(FIM): 3 Lower Body Dressing(FIM): 3 Toileting(FIM): 3 Toilet/Commode Transfer(FIM): 3 Additional Short Term Goals: 1-Demonstrate ADL Tasks, 2-Verbalize Understanding , 3-ImproveStrength/Angelita 1=Demonstrate adherence to instructed precautions during ADL tasks. 2=Patient will verbalize/demonstrate understanding of assistive devices/ modifications for ADL. 3=Patient will improve strength/tolerance for activity to enable patient to perform ADL's. OT Retirement Goals Retirement Goals Time Frame: Dec 28, 2018 Eating (FIM): 6 Eating (QC): 6 Groomin Oral Hygiene (QC): 6 Bathing(FIM): 4 Shower/Bathe Self (QC): 4 Upper Body Dressing(FIM): 5 Upper Body Dressing (QC): 5 Lower Body Dressing(FIM): 5 Lower Body Dressing (QC): 5 On/Off Footwear (QC): 5 Toileting(FIM): 5 Toileting Hygiene (QC): 5 Toilet/Commode Transfer(FIM): 5 Toilet/Commode Transfer (QC): 5 Shower Transfer(FIM): 5 Additional Goals: 1-Demonstrate ADL Tasks, 2-Verbalize Understanding, 3- ImproveStrength/Angelita 1=Demonstrate adherence to instructed precautions during ADL tasks. 2=Patient will verbalize/demonstrate understanding of assistive devices/ modifications for ADL. 3=Patient will improve strength/tolerance for activity to enable patient to perform ADL's. OT Education/Plan Discharge Recommendations Plan/Recommendations: Continue POC Treatment Plan/Plan of Care Patient would benefit from OT for education, treatment and training to promote independence in ADL's, mobility, safety and/or upper extremity function for ADL' s. Plan of Care: ADL Retraining, Functional Mobility, Group Exercise/Act as Ind, UE Funct Exercise/Act, UE Neuromus Re-Ed/Coord Treatment Duration: Dec 28, 2018 Frequency: At least 5 of 7 days/Wk (IRF) Estimated Hrs Per Day: 1.5 hours per day Agreement: Yes Rehab Potential: Fair Time/GCodes Start Time: 07:15 Stop Time: 09:00 Total Time Billed (hr/min): 105 Billed Treatment Time 1 visit-ADL 3 (38 min) NM 4 (67 min) co-treat with PT 60 min [id number] MADHAVI MENA Dec 05, 2018 07:58
[2018-12-05] MEDS: HYDROcodone/APAP 7.5 MG/325 MG (LORTAB, LORCET PLUS) TABLET PO PRN ×2 (08:25→22:34)
[2018-12-05] MEDS ORDERED: KCL 10 MEQ TAB (MICRO K) PO NR (09:00)
[2018-12-05] MEDS: RT-ALBUTEROL/IPRATROPIUM 3 ML (DUONEB) VIAL INH SCH (09:06)
--- NOTE | 2018-12-05 09:13 | PM&R Progress Note ---
Subjective HPI/CC On Admission Date Seen by Provider: Dec 05, 2018 Time Seen by Provider: 08:40 Chief complaint: Stroke with left sided weakness and dysphasia. HPI: This is a 68yoWF who moved to [place] in 2011 but remained a patient of TERES[facility] doctor who presented with left sided weakness diagnosed with a stroke (out of tPA window of candidacy) and has been actively pursuing rehab since that time. At this current time she is still have dysphasia and difficulty speaking but her thought process is intact and she will need intensive therapy for the left sided weakness. Curry catheter has been maintained and that will be discontinued. Bowels are moving she reports after meds were given. I reviewed all of her home medication that included Celebrex and will maintain on Aspirin and low dose Statin therapy following a stroke per protocol. Pt is agreeable for inpatient rehab and intensive therapy to regain function following a devastating stroke with left sided weakness. She lives at home alone. 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 Pt does have chronic pain, fibromyalgia, and osteoarthritis that she struggles with on an ongoing basis. Subjective/Events-last exam Pt is settling into inpatient rehab. Lortab is providing good pain control. Potassium at 3.4 but she reports she is allergic to potassium so that is discontinued. Tylenol of 1000mg Q6 hours was ordered like her home medication to minimize dose of Lortab. Overall participating in therapy with left sided weakness. Review of Systems General: Fatigue Neurological: Weakness, Incoordination Objective Exam Vital Signs Vital Signs Date Time Temp Pulse Resp B/P (MAP) Pulse Ox O2 Delivery O2 Flow Rate FiO2 12/05/18 18:00 98.3 73 18 174/78 (110) 96 Room Air 12/05/18 06:04 2.00 Capillary Refill : General Appearance: No Apparent Distress, WD/WN, Chronically ill, Obese HEENT: PERRL/EOMI, Normal ENT Inspection, Pharynx Normal, Moist Mucous Membranes Neck: Full Range of Motion, Normal Inspection, Non Tender, Supple Respiratory: Chest Non Tender, Lungs Clear, Normal Breath Sounds, No Accessory Muscle Use, No Respiratory Distress Cardiovascular: Regular Rate, Rhythm, No Edema, No Gallop, No JVD, No Murmur Gastrointestinal: Normal Bowel Sounds, No Organomegaly, No Pulsatile Mass, Non Tender, Soft Back: Normal Inspection, No CVA Tenderness, No Vertebral Tenderness Extremity: Normal Capillary Refill, Normal Inspection, Normal Range of Motion ( except left upper ad lower extremity weakness), Non Tender, No Calf Tenderness, No Pedal Edema Neurologic/Psychiatric: Alert, Oriented x3, Normal Mood/Affect, Facial Droop ( left), Motor Weakness (left sided weakness, left facial droop, thickened speech) Skin: Normal Color, Warm/Dry Lymphatic: No Adenopathy Results/Procedures Lab Laboratory Tests 12/05/18 05:50 Patient resulted labs reviewed. 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 stroke with left sided weakness HTN HTG HLP Hypothyroidism STEPH on CPAP Hypokalemia chronic and allergic to supplement DM OOC DVT PPx with Lovenox Plan: Intensive PT/OT/Speech therapies Check HGA1C along with other basic labs Monitor bowel function Fall risk management (1) Acute right CASH CROP FARMER stroke (2) DVT prophylaxis (3) Hyperglyceridemia (4) Hypokalemia (5) Weakness of left side of body (6) Difficulty speaking (7) Dysphagia (8) STEPH on CPAP (9) Non-insulin dependent type 2 diabetes mellitus (10) Essential (primary) hypertension (11) Obesity (12) Hypothyroidism Clinical Quality Measures DVT/VTE Risk/Contraindication: Risk Factor Score Per Nursin RFS Level Per Nursing on Admit: 4+=Very High LOREN MILLER DO Dec 05, 2018 09:13
[2018-12-05] MEDS: CELECOXIB 100 MG (CeleBREX) CAP PO SCH ×2 (09:30→20:14)
[2018-12-05] MEDS: PANTOPRAZOLE 20 MG TABLET (PROTONIX) PO SCH (09:30)
[2018-12-05] MEDS: ASPIRIN E.C. 81 MG (ECOTRIN) TAB PO SCH (09:30)
[2018-12-05] MEDS: amLODIPine 10 MG (NORVASC) TAB PO SCH (09:31)
[2018-12-05] MEDS: DOCUSATE SODIUM 100 MG (COLACE) CAP PO SCH ×2 (09:31→20:15)
[2018-12-05] MEDS: ENOXAPARIN 40 MG/0.4 ML (LOVENOX) SYR SC SCH ×2 (09:34→20:15)
--- NOTE | 2018-12-05 10:15 | Speech Therapy Daily Note ---
Speech Daily Progress Note Subjective Date Seen by Provider: Dec 05, 2018 Time Seen by Provider: 00:30 Patient was eating breakfast when I arrived. Objective Patient completed adduction exercises as trained with 75% accuracy given min to mod visual and verbal cuing. Assessment Assessment Current Status: Good Progress Treatment Plan Continue Plan of Care Communication Comprehension: 7 Expression: 7 Social Cognition Social Interaction: 7 Problem Solvin Memory: 7 Speech Short Term Goals Short Term Goals Short Term Goals 1) Patient will utilize compensatory strategies as trained for safe oral intake of the least restrictive diet with 90% or greater. 2) Patient will demonstrate safe oral intake of the least restrictive diet level with 90% or greater. 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 Speech-Plan Patient/Family Goals Patient/Family Goals: Patient plans to return home with family support post rehab. Treatment Plan Speech Therapy Treatment Plan: Continue Plan of Care Patient was trained on adduction exercises to complete 3-5 times a day for strengthening the oropharyngeal area. Treatment Duration: Dec 12, 2018 Frequency: 5 times per week Estimated Hrs Per Day: .5 hour per day Rehab Potential: Fair Barriers to Learning: New onset CVA Pt/Family Agrees to Plan: Yes Safety Risks/Education Teaching Recipient: Patient Teaching Methods: Discussion Response to Teaching: Verbalize Understanding Education Topics Provided: Education related to the adduction exercises. Time Speech Therapy Time In: 09:30 Speech Therapy Time Out: 10:00 Total Billed Time: 30 Billed Treatment Time 1FEDERICO MONTY Roland Dec 05, 2018 10:15
--- NOTE | 2018-12-05 11:00 | NUR ---
Pastoral care visit.
--- NOTE | 2018-12-05 11:06 | Physical Therapy Daily Note ---
PT Daily Note-Current Subjective Pt agrees to Co-treat with PT & OT tx. Pain Location: Right, Left Location Body Site: Shoulder Pain Description: Ache, Tightness Comment: Pt did not give rating. Mental Status Patient Orientation: Person, Place, Time, Situation Transfers Therapy Code Descriptions/Definitions Functional [place] Measure: 0=Not Assessed/NA 4=Minimal Assistance 1=Total Assistance 5=Supervision or Setup 2=Maximal Assistance 6=Modified [place] 3=Moderate Assistance 7=Complete [place] Therapy Quality Codes: 6 Independent with activity with or without an assistive device 5 Patient requires set up or clean up by helper. Patient completes activity by themselves 4 Supervision or touching assist (CGA). [place] provide cues , steadying assist 3 The helper provides less than half the effort to complete the activity 2 The helper provides more than half the effort to complete the activity 1 Dependent. The helper does all the effort to complete an activity 7 Patient refused to complete or attempt activity 9 The patient did not perform the activity before the current illness or injury 88 Not attempted due to Medical conditions or safety concerns Scootin Supine to/from Sit: 4 Sit to/from Stand: 3 Sit to Lying (QC): 4 Sit to Stand (QC): 3 Chair/[id number] Xfer(QC): 3 Bed to/from Chair: 3 Weight Bearing Right Lower Extremity: Right Full Weight Bearing Left Lower Extremity: Left Full Weight Bearing Gait Training Does the Patient Walk?: Yes Distance (FIM): 1=up to 49 ft Distance: 24' Walk 10 feet (QC): 3 Gait Level of Assist: 3 Gait Persons Needed: 1 Gait Assistive Device: Parallel Bars Pt has to focus to advance L foot. Pt has slow amadeo. Wheelchair Training Does the Pt Use a Wheelchair?: Yes Wheelchair Distance: 3=150 ft Distance: 150' Wheelchair Level of Assist: 3 Type of Wheelchair: Manual Exercises Supine Ex: Ankle pumps, Quad Set Supine Reps: 15 Treatments Pt declined shower, sponge bath or changing clothing. Mod A for supine to EOB. Co-treat with PT for skilled instruction and care due to decreased mobility and activity tolerance. PT worked on transfers, ambulation and LE strengthening /stretching. OT worked on grooming, toileting, L UE wt bearing and PROM. After therapy, pt sitting in recliner with call light/phone in reach. All needs met in room. Assessment Current Status: Good Progress Pt demonstrates difficulty with advancing L foot during ambulation and weakness with transfers. PT Short Term Goals Short Term Goals Time Frame: Dec 11, 2018 Gait (FIM): 1 Gait Distance Comment: 10' Gait Level of Assist: 3 Gait Assistive Device: Walker Robby PT Prison Goals Assistant Golf Course Superintendent Goals PT Assistant Golf Course Superintendent Goals Time Frame: Dec 25, 2018 Transfers (B,C,W/C) (FIM): 4 Sit to Lying (QC): 3 Lying-Sitting on Side/Bed(QC): 3 Sit to Stand (QC): 3 Rollin Roll Left to Right (QC): 3 Chair/[id number] Xfer(QC): 3 Car Transfer (QC): 3 Gait (FIM): 2 Distance: 50' Walk 10 feet (QC): 3 Walk 10ft-Uneven Surface(QC): 3 Walk 50ft with 2 Turns (QC): 3 Walk 150 ft (QC): 3 Gait Level of Assist: 4 Gait Assistive Device: Walker Robby Stairs (FIM): 1 # of Steps: 1 1 Step (curb) (QC): 3 Stairs Level Of Assist: 4 PT Plan Problem List Problem List: Activity Tolerance, Functional Strength, Safety, Balance, Gait, Transfer, Bed Mobility, ROM Treatment/Plan Treatment Plan: Continue Plan of Care Treatment Plan: Bed Mobility, Concurrent Therapy, Education, Functional Activity Angelita, Functional Strength, Group Therapy, Gait, Safety, Therapeutic Exercise, Transfers Treatment Duration: Dec 25, 2018 Frequency: At least 5 of 7 days/Wk (IRF) Estimated Hrs Per Day: 1.5 hours per day Patient and/or Family Agrees t: Yes Safety Risks/Education Patient Education: Gait Training, Transfer Techniques, Correct Positioning, Safety Issues Teaching Recipient: Patient Teaching Methods: Discussion Response to Teaching: Verbalize Understanding Time/GCodes Time In: 800 Time Out: 900 Total Billed Treatment Time: 60 Total Billed Treatment 1, WCH (15m), GT (15m) & FA x2 (30m) G Codes Necessary: MONY [place] PTA Dec 05, 2018 11:06
--- NOTE | 2018-12-05 14:36 | Therapy Group Daily Note ---
Therapy Daily Group Note Patient Education Topic Home Safety, Other List Below Exercises UE Exercise Session Ratio (pt:therapist): 3:1 Goal of Session: Education on ARU Expectations, Home Safety Strategies, Memory Strategies, UE/LE Strengthing Goal Met for this Session: Yes Pt Benefit of Group: Contributions to Others, F/U Use of Strategies @Home, Increased Functional Strength, Improved Cognition, Recognition of Peers, Socialization Other/Notes Pt transported to OT group with recliner. Group consisted of introductions ( name, place living, worst food eaten), socialization, UE seated exercises, memory strategies, ARU expectations/description and safety at home. Pt actively listened to peers and appropriately introduced self. Pt contributed to conversations and asked appropriate questions throughout therapy. Pt demonstrated good RUE ROM and strength with exercise, self-ROM completed.. Pt able to give personal strategies for memory. Pt voiced understanding of ARU and was able to ask pertinent questions about all topics. After therapy, pt in w/c talking to visitor in ARU commons area. All needs met. Start Time: 13:00 Stop Time: 14:10 Total Billed Treatment Time: 70 Total Billed Treatment 1-GRP MADHAVI MENA Dec 05, 2018 14:36
--- NOTE | 2018-12-05 15:59 | NUR ---
Pastoral care visit, presented Advance directive information, left forms with patient she will process and advise when ready to fill out.
[2018-12-05] MEDS: ACETAMINOPHEN 500 MG TAB (TYLENOL) PO PRN (17:38)
[2018-12-05 18:00] VITALS: BP 174/78
[2018-12-05] MEDS: ATORVASTATIN 20 MG (LIPITOR) TABLET PO SCH (20:14)
[2018-12-06 05:16] VITALS: BP 156/67
[2018-12-06] MEDS: inSUlin ASPART (NovoLOG) 1 UNIT/0.01 ML (CHARGE PER UNIT) SC SCH ×4 (05:54→21:25)
[2018-12-06] MEDS: LEVOTHYROXINE 50 MCG (LEVOTHROID) TAB PO SCH (06:15)
[2018-12-06] MEDS ORDERED: KCL 10 MEQ TAB (MICRO K) PO SCH (07:00)
--- NOTE | 2018-12-06 07:57 | PM&R Progress Note ---
Subjective HPI/CC On Admission Date Seen by Provider: Dec 06, 2018 Time Seen by Provider: 08:00 Chief complaint: Stroke with left sided weakness and dysphasia. HPI: This is a 68yoWF who moved to [place] in 2011 but remained a patient of TERESA Monroe doctor who presented with left sided weakness diagnosed with a stroke (out of tPA window of candidacy) and has been actively pursuing rehab since that time. At this current time she is still have dysphasia and difficulty speaking but her thought process is intact and she will need intensive therapy for the left sided weakness. Curry catheter has been maintained and that will be discontinued. Bowels are moving she reports after meds were given. I reviewed all of her home medication that included Celebrex and will maintain on Aspirin and low dose Statin therapy following a stroke per protocol. Pt is agreeable for inpatient rehab and intensive therapy to regain function following a devastating stroke with left sided weakness. She lives at home alone. 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 Pt does have chronic pain, fibromyalgia, and osteoarthritis that she struggles with on an ongoing basis. Subjective/Events-last exam Reports new issues. Slept with her CPAP. Sleeping very well now after much needed resolution for insomnia. Bowels are moving. No urination problem. Participating in therapies aggressively. Review of Systems General: Fatigue Objective Exam Vital Signs Vital Signs Date Time Temp Pulse Resp B/P (MAP) Pulse Ox O2 Delivery O2 Flow Rate FiO2 12/06/18 18:00 96.0 83 18 160/74 (102) 96 Room Air 12/05/18 06:04 2.00 Capillary Refill : General Appearance: No Apparent Distress, WD/WN, Chronically ill, Obese HEENT: PERRL/EOMI, Normal ENT Inspection, Pharynx Normal, Moist Mucous Membranes Neck: Full Range of Motion, Normal Inspection, Non Tender, Supple Respiratory: Chest Non Tender, Lungs Clear, Normal Breath Sounds, No Accessory Muscle Use, No Respiratory Distress Cardiovascular: Regular Rate, Rhythm, No Edema, No Gallop, No JVD, No Murmur Gastrointestinal: Normal Bowel Sounds, No Organomegaly, No Pulsatile Mass, Non Tender, Soft Back: Normal Inspection, No CVA Tenderness, No Vertebral Tenderness Extremity: Normal Capillary Refill, Normal Inspection, Normal Range of Motion ( except left upper ad lower extremity weakness), Non Tender, No Calf Tenderness, No Pedal Edema Neurologic/Psychiatric: Alert, Oriented x3, Normal Mood/Affect, Facial Droop ( left), Motor Weakness (left sided weakness, left facial droop, thickened speech) Skin: Normal Color, Warm/Dry Lymphatic: No Adenopathy Results/Procedures Lab Patient resulted labs reviewed. 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 with left sided weakness HTN HTG HLP Hypothyroidism STEPH on CPAP Hypokalemia chronic and allergic to supplement DM OOC DVT PPx with Lovenox Plan: Intensive PT/OT/Speech therapies Reviewed HGA1C along with other basic labs Monitor bowel function Fall risk management (1) Acute right PERSONAL TRAINER stroke (2) DVT prophylaxis (3) Hyperglyceridemia (4) Hypokalemia (5) Weakness of left side of body (6) Difficulty speaking (7) Dysphagia (8) STEPH on CPAP (9) Non-insulin dependent type 2 diabetes mellitus (10) Essential (primary) hypertension (11) Obesity (12) Hypothyroidism Clinical Quality Measures DVT/VTE Risk/Contraindication: Risk Factor Score Per Nursin RFS Level Per Nursing on Admit: 4+=Very High LOREN MILLER DO Dec 06, 2018 07:57
[2018-12-06] MEDS: CELECOXIB 100 MG (CeleBREX) CAP PO SCH ×2 (08:41→21:12)
[2018-12-06] MEDS: DOCUSATE SODIUM 100 MG (COLACE) CAP PO SCH ×2 (08:41→21:17)
[2018-12-06] MEDS: HYDROcodone/APAP 7.5 MG/325 MG (LORTAB, LORCET PLUS) TABLET PO PRN (08:41)
[2018-12-06] MEDS: amLODIPine 10 MG (NORVASC) TAB PO SCH (08:41)
[2018-12-06] MEDS: PANTOPRAZOLE 20 MG TABLET (PROTONIX) PO SCH (08:41)
[2018-12-06] MEDS: ENOXAPARIN 40 MG/0.4 ML (LOVENOX) SYR SC SCH ×2 (08:42→21:13)
[2018-12-06] MEDS: ASPIRIN E.C. 81 MG (ECOTRIN) TAB PO SCH (08:42)
--- NOTE | 2018-12-06 10:01 | Occupational Ther Daily Note ---
OT Current Status-Daily Note Subjective Pt. reports 7/10 pain "all over." Reported this to nursing. Nursing gives pain medication. Appearance Pt. in bed. Asleep but wakes up and agrees to work with OT. Mental Status/Objective Patient Orientation: Person, Place, Time, Situation Therapy Code Descriptions/Definitions Functional [place] Measure: 0=Not Assessed/NA 4=Minimal Assistance 1=Total Assistance 5=Supervision or Setup 2=Maximal Assistance 6=Modified [place] 3=Moderate Assistance 7=Complete [place] ADL-Treatment Therapy Code Descriptions/Definitions Functional [place] Measure: 0=Not Assessed/NA 4=Minimal Assistance 1=Total Assistance 5=Supervision or Setup 2=Maximal Assistance 6=Modified [place] 3=Moderate Assistance 7=Complete [place] Therapy Quality Codes: 6 Independent with activity with or without an assistive device 5 Patient requires set up or clean up by helper. Patient completes activity by themselves 4 Supervision or touching assist (CGA). [place] provide cues , steadying assist 3 The helper provides less than half the effort to complete the activity 2 The helper provides more than half the effort to complete the activity 1 Dependent. The helper does all the effort to complete an activity 7 Patient refused to complete or attempt activity 9 The patient did not perform the activity before the current illness or injury 88 Not attempted due to Medical conditions or safety concerns Grooming (FIM): 5 (Set up at sink to brush teeth and hair.) Oral Hygiene (QC): 5 Bathing (FIM): 1 (Pt. is able to wash most of upper body with assist to wash under left arm. Pt. is able to wash bilateral LE with LH sponge. However, pt. is unable to reach cari area on her own. Requires assist of one person to stand , and full assist of another person to wash rear cari area. Pt. attempts to help with this, but loses balance.) Shower/Bathe Self (QC): 1 Upper Body (FIM): 3 Upper Body Dressing (QC): 3 Lower Body Dressing (FIM): 2 (Pt. is educated in AE and attempts to doff/don with equipment. Pt. is able to doff underwear, pants, socks with DS. Pt. is unable to don any clothing pieces on her own with AE. Requires full assist for this.) Lower Body Dressing (QC): 2 On/Off Footwear (QC): 2 Toileting (FIM): 3 (Pt. requires assistance to pull down/up pants to sit on BSC. Pt. is able to wash front cari area after urinating.) Toileting Hygiene (QC): 3 Transfers (B, C, W/C) (FIM): 3 (Mod assist sit-stand, min assist to transfer with OT in front of pt.) Toilet/Commode Transfer (FIM): 3 Toilet Transfer (QC): 3 Education OT Patient Education: Correct positioning, Modified ADL techniques, Progress toward Goal/Update tx plan, Purpose of tx/functional activities, Reviewed precautions, Rehab process, Transfer techniques, Use of adapted equipment Teaching Recipient: Patient Teaching Methods: Demonstration, Discussion Response to Teaching: Verbalize Understanding, Return Demonstration OT Short Term Goals Short Term Goals Time Frame: Dec 11, 2018 Upper Body Dressing(FIM): 3 Lower Body Dressing(FIM): 3 Toileting(FIM): 3 Toilet/Commode Transfer(FIM): 3 Additional Short Term Goals: 1-Demonstrate ADL Tasks, 2-Verbalize Understanding , 3-ImproveStrength/Angelita 1=Demonstrate adherence to instructed precautions during ADL tasks. 2=Patient will verbalize/demonstrate understanding of assistive devices/ modifications for ADL. 3=Patient will improve strength/tolerance for activity to enable patient to perform ADL's. OT Woven Label Designer Goals Woven Label Designer Goals Time Frame: Dec 28, 2018 Eating (FIM): 6 Eating (QC): 6 Groomin Oral Hygiene (QC): 6 Bathing(FIM): 4 Shower/Bathe Self (QC): 4 Upper Body Dressing(FIM): 5 Upper Body Dressing (QC): 5 Lower Body Dressing(FIM): 5 Lower Body Dressing (QC): 5 On/Off Footwear (QC): 5 Toileting(FIM): 5 Toileting Hygiene (QC): 5 Toilet/Commode Transfer(FIM): 5 Toilet/Commode Transfer (QC): 5 Shower Transfer(FIM): 5 Additional Goals: 1-Demonstrate ADL Tasks, 2-Verbalize Understanding, 3- ImproveStrength/Angelita 1=Demonstrate adherence to instructed precautions during ADL tasks. 2=Patient will verbalize/demonstrate understanding of assistive devices/ modifications for ADL. 3=Patient will improve strength/tolerance for activity to enable patient to perform ADL's. OT Education/Plan Problem List/Assessment Assessment: Decreased Activ Tolerance, Decreased Safety Aware, Decreased UE Strength, Dependent Transfers, Impaired Bed Mobility, Impaired I ADL's, Impaired Self-Care Skills, Restricted Funct UE ROM Discharge Recommendations Plan/Recommendations: Continue POC Therapy D/C Recommendations: Home w/ Family Support, Occupational Therapy Home Care, Scheduled Assistance Equpiment Recommendations-D/C: Hip Kit Treatment Plan/Plan of Care Treatment,Training & Education: Yes Patient would benefit from OT for education, treatment and training to promote independence in ADL's, mobility, safety and/or upper extremity function for ADL' s. Plan of Care: ADL Retraining, Functional Mobility, Group Exercise/Act as Ind, UE Funct Exercise/Act, UE Neuromus Re-Ed/Coord Treatment Duration: Dec 28, 2018 Frequency: At least 5 of 7 days/Wk (IRF) Estimated Hrs Per Day: 1.5 hours per day Agreement: Yes Rehab Potential: Fair Time/GCodes Start Time: 08:15 Stop Time: 09:30 Total Time Billed (hr/min): 75 Billed Treatment Time 1, ADL x 5 CHELI LOPEZ OT Dec 06, 2018 10:01
--- NOTE | 2018-12-06 10:26 | Speech Therapy Daily Note ---
Speech Daily Progress Note Subjective Date Seen by Provider: Dec 06, 2018 Time Seen by Provider: 00:30 Patient was sitting in her wheelchair resting when I arrived in her room. She stated she was really tired today. Objective Patient completed compensatory strategies training for intake of her breakfast. The patient is completing the adduction exercises as directed. Assessment Assessment Current Status: Good Progress Treatment Plan Continue Plan of Care Communication Comprehension: 7 Expression: 7 Social Cognition Social Interaction: 7 Problem Solvin Memory: 7 Speech Short Term Goals Short Term Goals Short Term Goals 1) Patient will utilize compensatory strategies as trained for safe oral intake of the least restrictive diet with 90% or greater. 2) Patient will demonstrate safe oral intake of the least restrictive diet level with 90% or greater. Speech Retirement Goals Retirement Goals Patient will maintain adequate nutrition/hydration via safe effective swallow function. Speech-Plan Patient/Family Goals Patient/Family Goals: The patient plans to return home with family support post rehab. Treatment Plan Speech Therapy Treatment Plan: Continue Plan of Care Patient is progressing well with current diet level. Oral intake has continued to increase. Treatment Duration: Dec 12, 2018 Frequency: 5 times per week Estimated Hrs Per Day: .5 hour per day Rehab Potential: Fair Barriers to Learning: New onset CVA Pt/Family Agrees to Plan: Yes Safety Risks/Education Teaching Recipient: Patient Teaching Methods: Discussion Response to Teaching: Verbalize Understanding Time Speech Therapy Time In: 09:30 Speech Therapy Time Out: 10:00 Total Billed Time: 30 Billed Treatment Time 1, FEDERICO MONTY Roland Dec 06, 2018 10:26
--- NOTE | 2018-12-06 11:53 | Physical Therapy Daily Note ---
PT Daily Note-Current Subjective Pt sitting in W/C upon arrival. Pt agrees to PT. Pain Numeric Pain Scale: 6 Location: Right, Left Location Body Site: Shoulder Pain Description: Ache Mental Status Patient Orientation: Person, Place, Time, Situation Transfers Therapy Code Descriptions/Definitions Functional [place] Measure: 0=Not Assessed/NA 4=Minimal Assistance 1=Total Assistance 5=Supervision or Setup 2=Maximal Assistance 6=Modified [place] 3=Moderate Assistance 7=Complete [place] Therapy Quality Codes: 6 Independent with activity with or without an assistive device 5 Patient requires set up or clean up by helper. Patient completes activity by themselves 4 Supervision or touching assist (CGA). [place] provide cues , steadying assist 3 The helper provides less than half the effort to complete the activity 2 The helper provides more than half the effort to complete the activity 1 Dependent. The helper does all the effort to complete an activity 7 Patient refused to complete or attempt activity 9 The patient did not perform the activity before the current illness or injury 88 Not attempted due to Medical conditions or safety concerns Scootin Sit to/from Stand: 3 Sit to Stand (QC): 3 Weight Bearing Right Lower Extremity: Right Full Weight Bearing Left Lower Extremity: Left Full Weight Bearing Wheelchair Training Does the Pt Use a Wheelchair?: Yes Wheelchair Distance: 3=150 ft Distance: 150' Wheelchair Level of Assist: 2 Wheel 50 ft with 2 turns (QC): 2 Wheel 150 ft (QC): 2 Type of Wheelchair: Manual Treatments Pt was propelled in W/C to Therapy Gym. Pt practiced standing at //bars followed by wt. shifting to assist with balance for LE & septic technician strength for UE. Pt also uses BSC in room with assistance from WATER REUSE PROGRAM MANAGER for transfers and pericare. Pt resting in W/C at end of tx. with all needs met. Assessment Current Status: Good Progress Pt continues to improves with transfers and balance while standing in //bars. PT Short Term Goals Short Term Goals Time Frame: Dec 11, 2018 Gait (FIM): 1 Gait Distance Comment: 10' Gait Level of Assist: 3 Gait Assistive Device: Walker Robby Wheelchair Distance: 150' PT Correction Goals Stonework Tracer Goals PT Stonework Tracer Goals Time Frame: Dec 25, 2018 Transfers (B,C,W/C) (FIM): 4 Sit to Lying (QC): 3 Lying-Sitting on Side/Bed(QC): 3 Sit to Stand (QC): 3 Rollin Roll Left to Right (QC): 3 Chair/Uty-wo-Hczjo Xfer(QC): 3 Car Transfer (QC): 3 Gait (FIM): 2 Distance: 50' Walk 10 feet (QC): 3 Walk 10ft-Uneven Surface(QC): 3 Walk 50ft with 2 Turns (QC): 3 Walk 150 ft (QC): 3 Gait Level of Assist: 4 Gait Assistive Device: Walker Robby Stairs (FIM): 1 # of Steps: 1 1 Step (curb) (QC): 3 Stairs Level Of Assist: 4 PT Plan Problem List Problem List: Activity Tolerance, Functional Strength, Safety, Balance, Gait, Transfer, Bed Mobility, ROM Treatment/Plan Treatment Plan: Continue Plan of Care Treatment Plan: Bed Mobility, Concurrent Therapy, Education, Functional Activity Angelita, Functional Strength, Group Therapy, Gait, Safety, Therapeutic Exercise, Transfers Treatment Duration: Dec 25, 2018 Frequency: At least 5 of 7 days/Wk (IRF) Estimated Hrs Per Day: 1.5 hours per day Patient and/or Family Agrees t: Yes Safety Risks/Education Patient Education: Transfer Techniques, Correct Positioning, Safety Issues Teaching Recipient: Patient Teaching Methods: Discussion Response to Teaching: Verbalize Understanding Time/GCodes Time In: 1100 Time Out: 1145 Total Billed Treatment Time: 45 Total Billed Treatment 1, WCH (10m), FA (20m) & GT (15m) G Codes Necessary: MONY Lake WATER REUSE PROGRAM MANAGER Dec 06, 2018 11:53
--- NOTE | 2018-12-06 16:13 | Physical Therapy Daily Note ---
PT Daily Note-Current Subjective Pt sitting in W/C with Nurse present and needing to use BSC upon arrival. Pt agrees to PT. Pain Numeric Pain Scale: 5-Moderate Pain Location: Right, Left Location Body Site: Shoulder Pain Description: Ache Mental Status Patient Orientation: Person, Place, Time, Situation Transfers Therapy Code Descriptions/Definitions Functional [place] Measure: 0=Not Assessed/NA 4=Minimal Assistance 1=Total Assistance 5=Supervision or Setup 2=Maximal Assistance 6=Modified [place] 3=Moderate Assistance 7=Complete [place] Therapy Quality Codes: 6 Independent with activity with or without an assistive device 5 Patient requires set up or clean up by helper. Patient completes activity by themselves 4 Supervision or touching assist (CGA). [place] provide cues , steadying assist 3 The helper provides less than half the effort to complete the activity 2 The helper provides more than half the effort to complete the activity 1 Dependent. The helper does all the effort to complete an activity 7 Patient refused to complete or attempt activity 9 The patient did not perform the activity before the current illness or injury 88 Not attempted due to Medical conditions or safety concerns Scootin Sit to/from Stand: 2 Sit to Stand (QC): 2 Weight Bearing Right Lower Extremity: Right Full Weight Bearing Left Lower Extremity: Left Full Weight Bearing Exercises Supine Ex: Ankle pumps, Quad Set, Straight leg raise Supine Reps: 15 Treatments Pt uses BSC then transfers to W/C to rest. Pt then transfers from W/C to recliner. Pt completes Supine Ex in recliner. Pt resting at end of tx with all needs met. Assessment Current Status: Good Progress Pt is fatigued this afternoon. Pt requires more assistance for transfers, especially from BSC. PT Short Term Goals Short Term Goals Time Frame: Dec 11, 2018 Gait (FIM): 1 Gait Distance Comment: 10' Gait Level of Assist: 3 Gait Assistive Device: Walker Robby Wheelchair Distance: 150' PT Fdc Goals Building Cleaner Goals PT Fdc Goals Time Frame: Dec 25, 2018 Transfers (B,C,W/C) (FIM): 4 Sit to Lying (QC): 3 Lying-Sitting on Side/Bed(QC): 3 Sit to Stand (QC): 3 Rollin Roll Left to Right (QC): 3 Chair/Yks-ds-Ntqgt Xfer(QC): 3 Car Transfer (QC): 3 Gait (FIM): 2 Distance: 50' Walk 10 feet (QC): 3 Walk 10ft-Uneven Surface(QC): 3 Walk 50ft with 2 Turns (QC): 3 Walk 150 ft (QC): 3 Gait Level of Assist: 4 Gait Assistive Device: Walker Robby Stairs (FIM): 1 # of Steps: 1 1 Step (curb) (QC): 3 Stairs Level Of Assist: 4 PT Plan Problem List Problem List: Activity Tolerance, Functional Strength, Safety, Balance, Gait, Transfer, Bed Mobility, ROM Treatment/Plan Treatment Plan: Continue Plan of Care Treatment Plan: Bed Mobility, Concurrent Therapy, Education, Functional Activity Angelita, Functional Strength, Group Therapy, Gait, Safety, Therapeutic Exercise, Transfers Treatment Duration: Dec 25, 2018 Frequency: At least 5 of 7 days/Wk (IRF) Estimated Hrs Per Day: 1.5 hours per day Patient and/or Family Agrees t: Yes Safety Risks/Education Patient Education: Transfer Techniques, Correct Positioning, Safety Issues Teaching Recipient: Patient Teaching Methods: Discussion Response to Teaching: Verbalize Understanding Time/GCodes Time In: 1445 Time Out: 1515 Total Billed Treatment Time: 30 Total Billed Treatment 1, FA (15m) & EX (15m) G Codes Necessary: MONY Lake PTA Dec 06, 2018 16:13
--- NOTE | 2018-12-06 17:00 | NUR ---
SKI LIFT ATTENDANT met with patient to complete initial assessment. Patient was alert and oriented and agreeable to assessment. Patient admitted to ARU from internally with diagnosis of CVA. Patient reports left-sided weakness. Prior to hospitalization patient resided alone in [place], [place]. The home is one level with 3 steps at the entrance with no railing. Prior to CVA patient reports independence with ambulation and ADLs. Patient also reports providing care for elderly stepmother. PCP identified as Dr. Kevin Parsons of [place], [place]. Primary contact identified as Dr. Sahu of [place], [place] at [phone] and daughter Yeny of [place] at [phone]. DaughterAdelina works full-time daytime hours. DaughterYeny will be in town to visit next week. Insurance verified as Medicare and [employer] [place]. SKI LIFT ATTENDANT reviewed typical rehabilitation length of stay, patient expresses no concerns at this time. SKI LIFT ATTENDANT reviewed team conference summary with the recommendation of reevaluation on 313, patient is agreeable to reevaluation. Patient appears extremely motivated to recover. SKI LIFT ATTENDANT will continue to follow for additional discharge needs.
[2018-12-06 18:00] VITALS: BP 160/74
[2018-12-06] MEDS: ATORVASTATIN 20 MG (LIPITOR) TABLET PO SCH (21:12)
[2018-12-06] MEDS: ACETAMINOPHEN 500 MG TAB (TYLENOL) PO PRN (21:13)
[2018-12-07] MEDS: LEVOTHYROXINE 50 MCG (LEVOTHROID) TAB PO SCH (05:25)
[2018-12-07] MEDS: inSUlin ASPART (NovoLOG) 1 UNIT/0.01 ML (CHARGE PER UNIT) SC SCH ×4 (05:44→21:32)
[2018-12-07 05:45] VITALS: BP 134/73
[2018-12-07] MEDS: ENOXAPARIN 40 MG/0.4 ML (LOVENOX) SYR SC SCH ×2 (08:47→21:20)
[2018-12-07] MEDS: CELECOXIB 100 MG (CeleBREX) CAP PO SCH ×2 (08:48→21:19)
[2018-12-07] MEDS: amLODIPine 10 MG (NORVASC) TAB PO SCH (08:48)
[2018-12-07] MEDS: ASPIRIN E.C. 81 MG (ECOTRIN) TAB PO SCH (08:48)
[2018-12-07] MEDS: DOCUSATE SODIUM 100 MG (COLACE) CAP PO SCH ×2 (08:48→21:00)
[2018-12-07] MEDS: PANTOPRAZOLE 20 MG TABLET (PROTONIX) PO SCH (08:48)
[2018-12-07 08:52] VITALS: BP 126/76
--- NOTE | 2018-12-07 09:10 | PM&R Progress Note ---
Subjective HPI/CC On Admission Date Seen by Provider: Dec 07, 2018 Time Seen by Provider: 09:15 Chief complaint: Stroke with left sided weakness and dysphasia. HPI: This is a 68yoWF who moved to [place] in 2011 but remained a patient of TERESA [facility] doctor who presented with left sided weakness diagnosed with a stroke (out of tPA window of candidacy) and has been actively pursuing rehab since that time. At this current time she is still have dysphasia and difficulty speaking but her thought process is intact and she will need intensive therapy for the left sided weakness. Curry catheter has been maintained and that will be discontinued. Bowels are moving she reports after meds were given. I reviewed all of her home medication that included Celebrex and will maintain on Aspirin and low dose Statin therapy following a stroke per protocol. Pt is agreeable for inpatient rehab and intensive therapy to regain function following a devastating stroke with left sided weakness. She lives at home alone. 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 Pt does have chronic pain, fibromyalgia, and osteoarthritis that she struggles with on an ongoing basis. Subjective/Events-last exam Reports new issues. Slept with her CPAP last night. Bowels are moving. No urination problem. Participating in therapies aggressively. Checked meds and labs Hga1c 8.3 Review of Systems General: Fatigue Neurological: Weakness, Numbness, Incoordination Objective Exam Vital Signs Vital Signs Date Time Temp Pulse Resp B/P (MAP) Pulse Ox O2 Delivery O2 Flow Rate FiO2 12/08/18 09:00 Room Air 12/08/18 05:52 96.8 54 18 135/74 (94) 94 1.00 Capillary Refill : General Appearance: No Apparent Distress, WD/WN, Chronically ill, Obese HEENT: PERRL/EOMI, Normal ENT Inspection, Pharynx Normal, Moist Mucous Membranes Neck: Full Range of Motion, Normal Inspection, Non Tender, Supple Respiratory: Chest Non Tender, Lungs Clear, Normal Breath Sounds, No Accessory Muscle Use, No Respiratory Distress Cardiovascular: Regular Rate, Rhythm, No Edema, No Gallop, No JVD, No Murmur Gastrointestinal: Normal Bowel Sounds, No Organomegaly, No Pulsatile Mass, Non Tender, Soft Back: Normal Inspection, No CVA Tenderness, No Vertebral Tenderness Extremity: Normal Capillary Refill, Normal Inspection, Normal Range of Motion ( except left upper ad lower extremity weakness), Non Tender, No Calf Tenderness, No Pedal Edema Neurologic/Psychiatric: Alert, Oriented x3, Normal Mood/Affect, Facial Droop ( left), Motor Weakness (left sided weakness, left facial droop, thickened speech) Skin: Normal Color, Warm/Dry Lymphatic: No Adenopathy Results/Procedures Lab Patient resulted labs reviewed. Assessment/Plan Assessment and Plan Assess & Plan/Chief Complaint Assessment: s/p right DATA PROCESSING SYSTEMS CONSULTANT stroke with left sided weakness HTN HTG HLP Hypothyroidism STEPH on CPAP Hypokalemia chronic and allergic to supplement DM OOC DVT PPx with Lovenox Plan: Intensive PT/OT/Speech therapies Reviewed HGA1C along with other basic labs and noted hga1c 8.3 Monitor bowel function Fall risk management Start Levemir at night 10 units (1) Acute right DATA PROCESSING SYSTEMS CONSULTANT stroke (2) DVT prophylaxis (3) Hyperglyceridemia (4) Hypokalemia (5) Weakness of left side of body (6) Difficulty speaking (7) Dysphagia (8) STEPH on CPAP (9) Non-insulin dependent type 2 diabetes mellitus (10) Essential (primary) hypertension (11) Obesity (12) Hypothyroidism Clinical Quality Measures DVT/VTE Risk/Contraindication: Risk Factor Score Per Nursin RFS Level Per Nursing on Admit: 4+=Very High LOREN MILLER DO Dec 07, 2018 09:10
[2018-12-07] MEDS: HYDROcodone/APAP 5 MG/325 MG (LORTAB) TAB PO PRN (09:59)
--- NOTE | 2018-12-07 10:33 | Occupational Ther Daily Note ---
OT Current Status-Daily Note Subjective Pt alert, lying in bed. Pt agrees to therapy. Pt c/o pain, nrsg present in room. Mental Status/Objective Patient Orientation: Person, Place, Time, Situation Therapy Code Descriptions/Definitions Functional [place] Measure: 0=Not Assessed/NA 4=Minimal Assistance 1=Total Assistance 5=Supervision or Setup 2=Maximal Assistance 6=Modified [place] 3=Moderate Assistance 7=Complete [place] ADL-Treatment Pt agrees to shower. Mod A supine to EOB. Mod A SPT to BSC then to w/c. Max A for toileting, assist to manipulate clothing and cleanse. Therapy Code Descriptions/Definitions Functional [place] Measure: 0=Not Assessed/NA 4=Minimal Assistance 1=Total Assistance 5=Supervision or Setup 2=Maximal Assistance 6=Modified [place] 3=Moderate Assistance 7=Complete [place] Therapy Quality Codes: 6 Independent with activity with or without an assistive device 5 Patient requires set up or clean up by helper. Patient completes activity by themselves 4 Supervision or touching assist (CGA). [place] provide cues , steadying assist 3 The helper provides less than half the effort to complete the activity 2 The helper provides more than half the effort to complete the activity 1 Dependent. The helper does all the effort to complete an activity 7 Patient refused to complete or attempt activity 9 The patient did not perform the activity before the current illness or injury 88 Not attempted due to Medical conditions or safety concerns Grooming (FIM): 6 (Sitting at sink, pt able to complete by self.) Oral Hygiene (QC): 6 Bathing (FIM): 3 (Using long handle sponge, grabbar, hand held shower and shower bench pt able to complete 60% of bathing. Assist to cleanse buttocks/ cari area, L/R arms.) Bathing Location: L Upper Leg, R Upper Leg, L Lower Leg (including foot), R Lower Leg (including foot), Chest, Abdomen Shower/Bathe Self (QC): 3 Upper Body (FIM): 2 (Max A for upper body dressing. Continue to work on modified dressing techniques.) Upper Body Dressing (QC): 2 Lower Body Dressing (FIM): 2 (Continue to work on modified dressing techniques. Pt is able to pull to stand and balance while assist to hike pants over hips.) Lower Body Dressing (QC): 2 On/Off Footwear (QC): 2 Toileting (FIM): 2 Toileting Hygiene (QC): 2 Transfers (B, C, W/C) (FIM): 3 (Min-mod A due to pt anxiety.) Toilet/Commode Transfer (FIM): 3 (Mod A with SPT) Toilet Transfer (QC): 3 Shower Transfer(FIM): 4 (Using shower bench, grabbars and w/c pt able to complete transfer.) Pt has high anxiety with movement and progress. Pt tends to overthink how to complete tasks which hinders the efficiency of movement. Pt is demonstrating increased movement throughout L side. After therapy, pt sitting in w/c with call light/phone in reach. All needs met in room. OT Short Term Goals Short Term Goals Time Frame: Dec 11, 2018 Upper Body Dressing(FIM): 3 Lower Body Dressing(FIM): 3 Toileting(FIM): 3 Toilet/Commode Transfer(FIM): 3 Additional Short Term Goals: 1-Demonstrate ADL Tasks, 2-Verbalize Understanding , 3-ImproveStrength/Angelita 1=Demonstrate adherence to instructed precautions during ADL tasks. 2=Patient will verbalize/demonstrate understanding of assistive devices/ modifications for ADL. 3=Patient will improve strength/tolerance for activity to enable patient to perform ADL's. OT Intermediate Goals Intermediate Goals Time Frame: Dec 28, 2018 Eating (FIM): 6 Eating (QC): 6 Groomin Oral Hygiene (QC): 6 Bathing(FIM): 4 Shower/Bathe Self (QC): 4 Upper Body Dressing(FIM): 5 Upper Body Dressing (QC): 5 Lower Body Dressing(FIM): 5 Lower Body Dressing (QC): 5 On/Off Footwear (QC): 5 Toileting(FIM): 5 Toileting Hygiene (QC): 5 Toilet/Commode Transfer(FIM): 5 Toilet/Commode Transfer (QC): 5 Shower Transfer(FIM): 5 Additional Goals: 1-Demonstrate ADL Tasks, 2-Verbalize Understanding, 3- ImproveStrength/Angelita 1=Demonstrate adherence to instructed precautions during ADL tasks. 2=Patient will verbalize/demonstrate understanding of assistive devices/ modifications for ADL. 3=Patient will improve strength/tolerance for activity to enable patient to perform ADL's. OT Education/Plan Discharge Recommendations Plan/Recommendations: Continue POC Treatment Plan/Plan of Care Patient would benefit from OT for education, treatment and training to promote independence in ADL's, mobility, safety and/or upper extremity function for ADL' s. Plan of Care: ADL Retraining, Functional Mobility, Group Exercise/Act as Ind, UE Funct Exercise/Act, UE Neuromus Re-Ed/Coord Treatment Duration: Dec 28, 2018 Frequency: At least 5 of 7 days/Wk (IRF) Estimated Hrs Per Day: 1.5 hours per day Agreement: Yes Rehab Potential: Fair Time/GCodes Start Time: 09:00 Stop Time: 10:00 Total Time Billed (hr/min): 60 Billed Treatment Time 1 visit-ADL 4 (60 min) MADHAVI MENA Dec 07, 2018 10:33
[2018-12-07] MEDS ORDERED: SUCRALFATE 1 GM (CARAFATE) TAB PO PRN (10:45)
--- NOTE | 2018-12-07 11:08 | Physical Therapy Daily Note ---
PT Daily Note-Current Subjective Pt. states her goal is to be a walker. Wants to work hard to meet her goals. Explains that she has bilat RCTs Pain Numeric Pain Scale: 3 Location: Right Location Body Site: Shoulder Pain Description: Ache Mental Status Patient Orientation: Normal For Age Transfers Therapy Code Descriptions/Definitions Functional [place] Measure: 0=Not Assessed/NA 4=Minimal Assistance 1=Total Assistance 5=Supervision or Setup 2=Maximal Assistance 6=Modified [place] 3=Moderate Assistance 7=Complete [place] Therapy Quality Codes: 6 Independent with activity with or without an assistive device 5 Patient requires set up or clean up by helper. Patient completes activity by themselves 4 Supervision or touching assist (CGA). [place] provide cues , steadying assist 3 The helper provides less than half the effort to complete the activity 2 The helper provides more than half the effort to complete the activity 1 Dependent. The helper does all the effort to complete an activity 7 Patient refused to complete or attempt activity 9 The patient did not perform the activity before the current illness or injury 88 Not attempted due to Medical conditions or safety concerns Transfers (B, C, W/C) (FIM): 3 Scootin Rollin Supine to/from Sit: 4 Sit to/from Stand: 3 lift chair brought to pts room as this is what she uses at home and has for quite some time. pts. w/c seat raised with folded thermal blanket enabling pt. to progress for mod assist for sit to stand to min to CGA. sup to sit min assist from mat table in gym, sit to sup SBA with work and instruction going to right bringing affected LE in last, utilizing left adductors etc Weight Bearing Right Lower Extremity: Right Full Weight Bearing Left Lower Extremity: Left Full Weight Bearing Gait Training Does the Patient Walk?: Yes Gait (FIM): 1 Distance (FIM): 1=up to 49 ft (12ft,5ft) Gait Level of Assist: 4 Gait Persons Needed: 1 Gait Assistive Device: Handheld Assist (rail in [place] to right, OFFICE RENTAL CLERK support LUE (flaccid)) Wheelchair Training Does the Pt Use a Wheelchair?: Yes Wheelchair (FIM): 3 Wheelchair Distance: 3=150 ft (x1) Wheelchair Level of Assist: 3 (needs assist for brakes , worked on backwards, turns and forward) Type of Wheelchair: Manual Exercises Supine Ex: Rolling, Glut sets, Heel Slides, Scooting, Hip abd/add Supine Reps: 10 Standing: Heel/toe raises, Weight shifts Standing Reps: 20 Treatments sit to stand mult trials improving with seat level raised. stance at parallel bars for pregait activity Assessment Current Status: Good Progress gives full effort PT Short Term Goals Short Term Goals Time Frame: Dec 11, 2018 Gait (FIM): 1 Gait Distance Comment: 10' Gait Level of Assist: 3 Gait Assistive Device: Walker Robby Wheelchair Distance: 150' PT Usp Goals Usp Goals PT Director Of Event Marketing Goals Time Frame: Dec 25, 2018 Transfers (B,C,W/C) (FIM): 4 Sit to Lying (QC): 3 Lying-Sitting on Side/Bed(QC): 3 Sit to Stand (QC): 3 Rollin Roll Left to Right (QC): 3 Chair/Qrh-km-Wygyz Xfer(QC): 3 Car Transfer (QC): 3 Gait (FIM): 2 Distance: 50' Walk 10 feet (QC): 3 Walk 10ft-Uneven Surface(QC): 3 Walk 50ft with 2 Turns (QC): 3 Walk 150 ft (QC): 3 Gait Level of Assist: 4 Gait Assistive Device: Walker Robby Stairs (FIM): 1 # of Steps: 1 1 Step (curb) (QC): 3 Stairs Level Of Assist: 4 PT Plan Treatment/Plan Treatment Plan: Continue Plan of Care Treatment Plan: Bed Mobility, Concurrent Therapy, Education, Functional Activity Angelita, Functional Strength, Group Therapy, Gait, Safety, Therapeutic Exercise, Transfers Treatment Duration: Dec 25, 2018 Frequency: At least 5 of 7 days/Wk (IRF) Estimated Hrs Per Day: 1.5 hours per day Patient and/or Family Agrees t: Yes Safety Risks/Education Patient Education: Gait Training, Transfer Techniques, Correct Positioning, W/ C Management, Disease Process, Safety Issues Teaching Recipient: Patient Teaching Methods: Demonstration, Discussion Response to Teaching: Verbalize Understanding, Return Demonstration, Reinforcement Needed Time/GCodes Time In: 1015 Time Out: 1100 Total Billed Treatment Time: 45 Total Billed Treatment 1,GT15, wc 15, EX15 G Codes Necessary: TAPAN Barton ACCOUNTING RECONCILIATION CLERK Dec 07, 2018 11:08
--- NOTE | 2018-12-07 14:37 | Speech Therapy Daily Note ---
Speech Daily Progress Note Subjective Date Seen by Provider: Dec 07, 2018 Time Seen by Provider: 00:30 Patient said she felt better due to being able to get some sleep last night. Objective Patient consumed her lunch without incident of choking while utilizing compensatory strategies at 80% with minimal cues. Assessment Assessment Current Status: Good Progress Communication Comprehension: 7 Expression: 7 Social Cognition Social Interaction: 7 Problem Solvin Memory: 7 Speech Short Term Goals Short Term Goals Short Term Goals 1) Patient will utilize compensatory strategies as trained for safe oral intake of the least restrictive diet with 90% or greater. 2) Patient will demonstrate safe oral intake of the least restrictive diet level with 90% or greater. Speech Engine Installer Goals Senior Living Goals Patient will maintain adequate nutrition/hydration via safe effective swallow function. Speech-Plan Patient/Family Goals Patient/Family Goals: Patient plans to return home with family support post rehab. Treatment Plan Speech Therapy Treatment Plan: Continue Plan of Care Patient is progressing as a result of skilled ST services. Treatment Duration: Dec 12, 2018 Frequency: 5 times per week Estimated Hrs Per Day: .5 hour per day Rehab Potential: Fair Barriers to Learning: New onset CVA Pt/Family Agrees to Plan: Yes Safety Risks/Education Teaching Recipient: Patient Teaching Methods: Discussion Response to Teaching: Verbalize Understanding Education Topics Provided: Safety of oral intake. Time Speech Therapy Time In: 11:30 Speech Therapy Time Out: 12:00 Total Billed Time: 30 Billed Treatment Time 1BRENDA BETHANIA ST Dec 07, 2018 14:37
--- NOTE | 2018-12-07 14:47 | Therapy Group Daily Note ---
Therapy Daily Group Note Patient Education Topic Home Safety Exercises LE Seated Exercise, UE Exercise Session Goal of Session: Energy Conservation Tech., Memory Strategies Goal Met for this Session: Yes Pt Benefit of Group: Contributions to Others, F/U Use of Strategies @Home, Recognition of Peers, Socialization Other/Notes Pt transported in w/c to OT/PT group. Group consisted of introductions (name, place living, worst trouble in childhood), socialization, seated UE/LE exercises and energy conservation. Pt introduced self appropriately and actively listened to peers. Pt attentive throughout group and contributed to discussions. Pt initiated conversations and questions throughout group with peers and therapists. Pt able to complete UE exercises with self-ROM and LE exercises. Pt gave own strategies for energy conservation to acknowledge understanding of educational topic. After therapy, pt sitting in recliner with call light/phone in reach. All needs met in room. Start Time: 13:00 Stop Time: 14:20 Total Billed Treatment Time: 80 Total Billed Treatment 1-GRP MADHAVI MENA Dec 07, 2018 14:47
--- NOTE | 2018-12-07 14:48 | Therapy Group Daily Note ---
Therapy Daily Group Note Patient Education Topic Energy Cons Exercises LE Seated Exercise, UE Exercise Session Ratio (pt:therapist): 3:1 Goal of Session: Energy Conservation Tech., UE/LE Strengthing greater understanding of managing energy and utilzing adaptive devices when necessary Goal Met for this Session: Yes Pt Benefit of Group: Contributions to Others, F/U Use of Strategies @Home, Increased Functional Strength, Socialization Pt. participated in group PT OT session. Pt. to and from group via w/c. Pt. was social introducing herself and sharing a mischievious story from her youth. Energy conservation was education topic with focus today on sit to stand techniques with seat height variations using cushions, platforms under recliner at home or use of lift recline chair.Lift recline chair was demonstrated showing various ways to imcrease indep and ease of movement in chair and utilze gravity for positioning. Also how to utilize chair for supine and sitting exercises. Pt. to room with assist to lift chair, call ibrahim at hand Start Time: 13:00 Stop Time: 14:20 Total Billed Treatment Time: 80 Total Billed Treatment 1,GRP TAPAN HANSEN SECURITIES DEALER Dec 07, 2018 14:47
[2018-12-07] MEDS: ACETAMINOPHEN 500 MG TAB (TYLENOL) PO PRN ×2 (17:07→23:19)
[2018-12-07 17:12] VITALS: BP 161/81
--- NOTE | 2018-12-07 19:05 | NUR ---
bedside report received from SRINI MARTINEZ, assume care of pt
--- NOTE | 2018-12-07 21:00 | NUR ---
up to commode with 2 person assist , had moderate size soft brown BM & voided then back to bed, fsbs 222 novalog 3 units given, assessments & interventions completed, see assessments & interventions NIH STROKE SCALE score 4
[2018-12-07] MEDS: ATORVASTATIN 20 MG (LIPITOR) TABLET PO SCH (21:19)
--- NOTE | 2018-12-07 23:17 | NUR ---
c/o generalized pain level 6/10 on numeric scale, tylenol 1000mg po given
--- NOTE | 2018-12-08 | NUR ---
resting quietly in bed, pain level 0/10 on flacc scale
[2018-12-08 05:52] VITALS: BP 135/74
[2018-12-08] MEDS: inSUlin ASPART (NovoLOG) 1 UNIT/0.01 ML (CHARGE PER UNIT) SC SCH ×4 (06:00→21:33)
[2018-12-08] MEDS: ACETAMINOPHEN 500 MG TAB (TYLENOL) PO PRN ×3 (06:00→21:31)
--- NOTE | 2018-12-08 06:45 | NUR ---
up to commode then to chair with 2 people assist
[2018-12-08] MEDS: LEVOTHYROXINE 50 MCG (LEVOTHROID) TAB PO SCH (07:01)
--- NOTE | 2018-12-08 07:01 | NUR ---
tylenol 1000mg po given for generalized discomfort level 6/10 on numeric scale
--- NOTE | 2018-12-08 07:12 | NUR ---
bedside report given to MARLYN MARTINEZ
[2018-12-08 08:00] VITALS: BP 162/70
--- NOTE | 2018-12-08 08:00 | NUR ---
CONTINUES TO HAVE FIBROMYALGIA AND GENERALIZED PAIN, BUT ADEQUATE PAIN RELIEF WITH TYLENOL AND LORTAB. FEELS IMPROVEMENT IN LEFT EXTREMITIES DAILY.
[2018-12-08] MEDS: CELECOXIB 100 MG (CeleBREX) CAP PO SCH ×2 (09:02→21:32)
[2018-12-08] MEDS: amLODIPine 10 MG (NORVASC) TAB PO SCH (09:02)
[2018-12-08] MEDS: PANTOPRAZOLE 20 MG TABLET (PROTONIX) PO SCH (09:03)
[2018-12-08] MEDS: ASPIRIN E.C. 81 MG (ECOTRIN) TAB PO SCH (09:03)
[2018-12-08] MEDS: ENOXAPARIN 40 MG/0.4 ML (LOVENOX) SYR SC SCH ×2 (09:05→22:02)
[2018-12-08] MEDS: DOCUSATE SODIUM 100 MG (COLACE) CAP PO SCH ×2 (09:05→21:30)
--- NOTE | 2018-12-08 11:15 | PM&R Progress Note ---
Subjective HPI/CC On Admission Date Seen by Provider: Dec 08, 2018 Time Seen by Provider: 11:15 Chief complaint: Stroke with left sided weakness and dysphasia. HPI: This is a 68yoWF who moved to [place] in 2011 but remained a patient of TERESA Monroe doctor who presented with left sided weakness diagnosed with a stroke (out of tPA window of candidacy) and has been actively pursuing rehab since that time. At this current time she is still have dysphasia and difficulty speaking but her thought process is intact and she will need intensive therapy for the left sided weakness. Curry catheter has been maintained and that will be discontinued. Bowels are moving she reports after meds were given. I reviewed all of her home medication that included Celebrex and will maintain on Aspirin and low dose Statin therapy following a stroke per protocol. Pt is agreeable for inpatient rehab and intensive therapy to regain function following a devastating stroke with left sided weakness. She lives at home alone. 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 Pt does have chronic pain, fibromyalgia, and osteoarthritis that she struggles with on an ongoing basis. Subjective/Events-last exam Reports new issues. Slept with her CPAP last night and is very faithful Moving left hand a bit and her left arm Levemir ordered Bowels are moving. No urination problem. Participating in therapies aggressively. Reviewed accuchecks Objective Exam Vital Signs Vital Signs Date Time Temp Pulse Resp B/P (MAP) Pulse Ox O2 Delivery O2 Flow Rate FiO2 12/08/18 09:00 Room Air 12/08/18 05:52 96.8 54 18 135/74 (94) 94 1.00 Capillary Refill : General Appearance: No Apparent Distress, WD/WN, Chronically ill, Obese HEENT: PERRL/EOMI, Normal ENT Inspection, Pharynx Normal, Moist Mucous Membranes Neck: Full Range of Motion, Normal Inspection, Non Tender, Supple Respiratory: Chest Non Tender, Lungs Clear, Normal Breath Sounds, No Accessory Muscle Use, No Respiratory Distress Cardiovascular: Regular Rate, Rhythm, No Edema, No Gallop, No JVD, No Murmur Gastrointestinal: Normal Bowel Sounds, No Organomegaly, No Pulsatile Mass, Non Tender, Soft Back: Normal Inspection, No CVA Tenderness, No Vertebral Tenderness Extremity: Normal Capillary Refill, Normal Inspection, Normal Range of Motion ( except left upper ad lower extremity weakness), Non Tender, No Calf Tenderness, No Pedal Edema Neurologic/Psychiatric: Alert, Oriented x3, Normal Mood/Affect, Facial Droop ( left), Motor Weakness (left sided weakness, left facial droop, thickened speech) Skin: Normal Color, Warm/Dry Lymphatic: No Adenopathy Results/Procedures Lab Patient resulted labs reviewed. 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 with left sided weakness HTN HTG HLP Hypothyroidism STEPH on CPAP Hypokalemia chronic and allergic to supplement DM OOC DVT PPx with Lovenox Plan: Intensive PT/OT/Speech therapies Reviewed HGA1C and started on Levemir Monitor bowel function Fall risk management (1) Acute right TETRYL BOILING TUB OPERATOR stroke (2) DVT prophylaxis (3) Hyperglyceridemia (4) Hypokalemia (5) Weakness of left side of body (6) Difficulty speaking (7) Dysphagia (8) STEPH on CPAP (9) Non-insulin dependent type 2 diabetes mellitus (10) Essential (primary) hypertension (11) Obesity (12) Hypothyroidism Clinical Quality Measures DVT/VTE Risk/Contraindication: Risk Factor Score Per Nursin RFS Level Per Nursing on Admit: 4+=Very High LOREN MILLER DO Dec 08, 2018 11:15
--- NOTE | 2018-12-08 12:06 | Physical Therapy Daily Note ---
PT Daily Note-Current Mental Status Patient Orientation: Person, Place, Time, Situation Transfers Therapy Code Descriptions/Definitions Functional [place] Measure: 0=Not Assessed/NA 4=Minimal Assistance 1=Total Assistance 5=Supervision or Setup 2=Maximal Assistance 6=Modified [place] 3=Moderate Assistance 7=Complete [place] Therapy Quality Codes: 6 Independent with activity with or without an assistive device 5 Patient requires set up or clean up by helper. Patient completes activity by themselves 4 Supervision or touching assist (CGA). [place] provide cues , steadying assist 3 The helper provides less than half the effort to complete the activity 2 The helper provides more than half the effort to complete the activity 1 Dependent. The helper does all the effort to complete an activity 7 Patient refused to complete or attempt activity 9 The patient did not perform the activity before the current illness or injury 88 Not attempted due to Medical conditions or safety concerns Transfers (B, C, W/C) (FIM): 4 Sit to/from Stand: 4 Sit to Stand (QC): 4 Weight Bearing Right Lower Extremity: Right Full Weight Bearing Left Lower Extremity: Left Full Weight Bearing Gait Training Does the Patient Walk?: Yes Gait (FIM): 1 Distance (FIM): 1=up to 49 ft Distance: 10ft x4 Gait Assistive Device: Parallel Bars Ambulation in parallel bars walking forward 10ft 4x. Pt was able to advance the (L) hand (I) today. Exercises Supine Ex: LE Protocol Supine Reps: 15 Assessment Good stability during gait training. Pt was initially concerned about not having 2 therapists to help her walk, but she was safe and stable throughout. PT Short Term Goals Short Term Goals Time Frame: Dec 11, 2018 Gait (FIM): 1 Gait Distance Comment: 10' Gait Level of Assist: 3 Gait Assistive Device: Walker Robby Wheelchair Distance: 150' PT Painter Spray Goals [facility] Goals PT Painter Spray Goals Time Frame: Dec 25, 2018 Transfers (B,C,W/C) (FIM): 4 Sit to Lying (QC): 3 Lying-Sitting on Side/Bed(QC): 3 Sit to Stand (QC): 3 Rollin Roll Left to Right (QC): 3 Chair/Jlh-ds-Xlrzm Xfer(QC): 3 Car Transfer (QC): 3 Gait (FIM): 2 Distance: 50' Walk 10 feet (QC): 3 Walk 10ft-Uneven Surface(QC): 3 Walk 50ft with 2 Turns (QC): 3 Walk 150 ft (QC): 3 Gait Level of Assist: 4 Gait Assistive Device: Walker Robby Stairs (FIM): 1 # of Steps: 1 1 Step (curb) (QC): 3 Stairs Level Of Assist: 4 PT Plan Treatment/Plan Treatment Plan: Continue Plan of Care Treatment Plan: Bed Mobility, Concurrent Therapy, Education, Functional Activity Angelita, Functional Strength, Group Therapy, Gait, Safety, Therapeutic Exercise, Transfers Treatment Duration: Dec 25, 2018 Frequency: At least 5 of 7 days/Wk (IRF) Estimated Hrs Per Day: 1.5 hours per day Patient and/or Family Agrees t: Yes Time/GCodes Time In: 0835 Time Out: 0900 Total Billed Treatment Time: 25 Total Billed Treatment 1, gt15, ex 10 KEILA BELLA PT Dec 08, 2018 12:06
[2018-12-08] MEDS: HYDROcodone/APAP 5 MG/325 MG (LORTAB) TAB PO PRN (12:53)
[2018-12-08 18:00] VITALS: BP 157/65
--- NOTE | 2018-12-08 19:05 | NUR ---
bedside report received from MARLYN MARTINEZ, assume care of pt
--- NOTE | 2018-12-08 20:00 | NUR ---
remains up in the chair, finished dinner at 1930 ate 75% of meal
--- NOTE | 2018-12-08 21:00 | NUR ---
assessments & interventions completed, see assessments & interventions, fsbs 188 novalog 3 units given, NIH STROKE SCALE SCORE 4, refuses tomas states wants to talk to about it first, will give information about med
--- NOTE | 2018-12-08 21:31 | NUR ---
c/o generalized discomfort level 6/10 on numeric scale, Tylenol 1000mg po given
[2018-12-08] MEDS: ATORVASTATIN 20 MG (LIPITOR) TABLET PO SCH (21:32)
--- NOTE | 2018-12-08 22:15 | NUR ---
rates pain level 3/10 on numeric scale
--- NOTE | 2018-12-09 02:00 | NUR ---
time adjusted for daylight savings time
[2018-12-09 06:00] VITALS: BP 146/69
[2018-12-09] MEDS: inSUlin ASPART (NovoLOG) 1 UNIT/0.01 ML (CHARGE PER UNIT) SC SCH ×4 (06:00→20:31)
--- NOTE | 2018-12-09 07:03 | NUR ---
up to commode then to chair with 2 person assist
[2018-12-09] MEDS: LEVOTHYROXINE 50 MCG (LEVOTHROID) TAB PO SCH (07:05)
[2018-12-09] MEDS: ACETAMINOPHEN 500 MG TAB (TYLENOL) PO PRN ×2 (07:05→23:00)
--- NOTE | 2018-12-09 07:05 | NUR ---
c/o generalized pain level 7/10 on numeric scale, Tylenol 1000mg po given
--- NOTE | 2018-12-09 07:12 | NUR ---
bedside report given to MARLYN MARTINEZ
[2018-12-09 08:00] VITALS: BP 129/72
--- NOTE | 2018-12-09 08:30 | NUR ---
STATES REFUSED LEVEMIR LAST NIGHT BECAUSE FATHER "HAD A PROBLEM WITH LOW BLOOD SUGARS AND AFRAID MY SUGAR WILL GO TOO LOW AT NIGHT". REQUESTED TO BE BACK ON ACTOS. WILL INFORM DR. MILLER. ALSO REQUESTING A PET PASS FOR CAT TO VISIT.
[2018-12-09] MEDS: ASPIRIN E.C. 81 MG (ECOTRIN) TAB PO SCH (09:14)
[2018-12-09] MEDS: DOCUSATE SODIUM 100 MG (COLACE) CAP PO SCH ×3 (09:14→21:27)
[2018-12-09] MEDS: PANTOPRAZOLE 20 MG TABLET (PROTONIX) PO SCH (09:14)
[2018-12-09] MEDS: CELECOXIB 100 MG (CeleBREX) CAP PO SCH ×2 (09:14→20:31)
[2018-12-09] MEDS: amLODIPine 10 MG (NORVASC) TAB PO SCH (09:14)
[2018-12-09] MEDS: ENOXAPARIN 40 MG/0.4 ML (LOVENOX) SYR SC SCH ×2 (09:18→20:31)
[2018-12-09] MEDS: HYDROcodone/APAP 5 MG/325 MG (LORTAB) TAB PO PRN (09:21)
--- NOTE | 2018-12-09 11:43 | PM&R Progress Note ---
Subjective HPI/CC On Admission Date Seen by Provider: Dec 09, 2018 Time Seen by Provider: 11:30 Chief complaint: Stroke with left sided weakness and dysphasia. HPI: This is a 68yoWF who moved to [place] in 2011 but remained a patient of TERESA Monroe doctor who presented with left sided weakness diagnosed with a stroke (out of tPA window of candidacy) and has been actively pursuing rehab since that time. At this current time she is still have dysphasia and difficulty speaking but her thought process is intact and she will need intensive therapy for the left sided weakness. Curry catheter has been maintained and that will be discontinued. Bowels are moving she reports after meds were given. I reviewed all of her home medication that included Celebrex and will maintain on Aspirin and low dose Statin therapy following a stroke per protocol. Pt is agreeable for inpatient rehab and intensive therapy to regain function following a devastating stroke with left sided weakness. She lives at home alone. 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 Pt does have chronic pain, fibromyalgia, and osteoarthritis that she struggles with on an ongoing basis. Subjective/Events-last exam Reports no new issues. Slept with her CPAP last night Moving left hand a bit and her left arm more today and yesterday so that is encouraging Levemir ordered yesterday but her father had h/o low sugars and wants to DC insulin and restart her Actos Bowels are moving. No urination problem. Participating in therapies aggressively. Reviewed accuchecks and they are stable Wants her cat to visit Review of Systems General: Fatigue Neurological: Weakness, Numbness, Incoordination Objective Exam Vital Signs Vital Signs Date Time Temp Pulse Resp B/P (MAP) Pulse Ox O2 Delivery O2 Flow Rate FiO2 12/09/18 07:26 NIV CPAP 1.00 12/09/18 06:00 96.7 53 18 146/69 (94) 95 Capillary Refill : General Appearance: No Apparent Distress, WD/WN, Chronically ill, Obese HEENT: PERRL/EOMI, Normal ENT Inspection, Pharynx Normal, Moist Mucous Membranes Neck: Full Range of Motion, Normal Inspection, Non Tender, Supple Respiratory: Chest Non Tender, Lungs Clear, Normal Breath Sounds, No Accessory Muscle Use, No Respiratory Distress Cardiovascular: Regular Rate, Rhythm, No Edema, No Gallop, No JVD, No Murmur Gastrointestinal: Normal Bowel Sounds, No Organomegaly, No Pulsatile Mass, Non Tender, Soft Back: Normal Inspection, No CVA Tenderness, No Vertebral Tenderness Extremity: Normal Capillary Refill, Normal Inspection, Normal Range of Motion ( except left upper ad lower extremity weakness), Non Tender, No Calf Tenderness, No Pedal Edema Neurologic/Psychiatric: Alert, Oriented x3, Normal Mood/Affect, Facial Droop ( left), Motor Weakness (left sided weakness, left facial droop, thickened speech) Skin: Normal Color, Warm/Dry Lymphatic: No Adenopathy Results/Procedures Lab Patient resulted labs reviewed. Assessment/Plan Assessment and Plan Assess & Plan/Chief Complaint Assessment: s/p right SALESPERSON SHOES stroke with left sided weakness HTN HTG HLP Hypothyroidism STEPH on CPAP Hypokalemia chronic and allergic to supplement DM OOC DVT PPx with Lovenox Plan: Intensive PT/OT/Speech therapies Reviewed HGA1C and started on Levemir but she is frightened of that so DC and restarted her Actos Monitor bowel function Fall risk management Pet pass for her cat (1) Acute right SALESPERSON SHOES stroke (2) DVT prophylaxis (3) Hyperglyceridemia (4) Hypokalemia (5) Weakness of left side of body (6) Difficulty speaking (7) Dysphagia (8) STEPH on CPAP (9) Non-insulin dependent type 2 diabetes mellitus (10) Essential (primary) hypertension (11) Obesity (12) Hypothyroidism Clinical Quality Measures DVT/VTE Risk/Contraindication: Risk Factor Score Per Nursin RFS Level Per Nursing on Admit: 4+=Very High LOREN MILLER DO Dec 09, 2018 11:43
[2018-12-09] MEDS: TROLAMINE (ASPERCREME) 10% CR 90 GM TUBE TOP SCH ×2 (14:35→20:31)
[2018-12-09 17:45] VITALS: BP 145/76
[2018-12-09] MEDS: PIOGLITAZONE 30MG (ACTOS) TAB PO SCH (20:31)
[2018-12-09] MEDS: ATORVASTATIN 20 MG (LIPITOR) TABLET PO SCH (20:31)
[2018-12-10 06:00] VITALS: BP 138/73
[2018-12-10] MEDS: LEVOTHYROXINE 50 MCG (LEVOTHROID) TAB PO SCH (06:20)
[2018-12-10] MEDS: inSUlin ASPART (NovoLOG) 1 UNIT/0.01 ML (CHARGE PER UNIT) SC SCH ×4 (06:43→21:06)
[2018-12-10] MEDS: ASPIRIN E.C. 81 MG (ECOTRIN) TAB PO SCH (08:22)
[2018-12-10] MEDS: CELECOXIB 100 MG (CeleBREX) CAP PO SCH ×2 (08:22→21:04)
[2018-12-10] MEDS: amLODIPine 10 MG (NORVASC) TAB PO SCH (08:22)
[2018-12-10] MEDS: PIOGLITAZONE 30MG (ACTOS) TAB PO SCH ×2 (08:22→21:04)
[2018-12-10] MEDS: DOCUSATE SODIUM 100 MG (COLACE) CAP PO SCH ×2 (08:23→21:05)
[2018-12-10] MEDS: ENOXAPARIN 40 MG/0.4 ML (LOVENOX) SYR SC SCH ×2 (08:25→21:05)
[2018-12-10] MEDS: PANTOPRAZOLE 20 MG TABLET (PROTONIX) PO SCH (08:29)
[2018-12-10] MEDS: ACETAMINOPHEN 500 MG TAB (TYLENOL) PO PRN ×2 (08:30→21:04)
[2018-12-10] MEDS: TROLAMINE (ASPERCREME) 10% CR 90 GM TUBE TOP SCH ×2 (08:31→21:07)
--- NOTE | 2018-12-10 09:31 | PM&R Progress Note ---
Subjective HPI/CC On Admission Date Seen by Provider: Dec 10, 2018 Time Seen by Provider: 09:30 Chief complaint: Stroke with left sided weakness and dysphasia. HPI: This is a 68yoWF who moved to [place] in 2011 but remained a patient of TERESA Monroe doctor who presented with left sided weakness diagnosed with a stroke (out of tPA window of candidacy) and has been actively pursuing rehab since that time. At this current time she is still have dysphasia and difficulty speaking but her thought process is intact and she will need intensive therapy for the left sided weakness. Curry catheter has been maintained and that will be discontinued. Bowels are moving she reports after meds were given. I reviewed all of her home medication that included Celebrex and will maintain on Aspirin and low dose Statin therapy following a stroke per protocol. Pt is agreeable for inpatient rehab and intensive therapy to regain function following a devastating stroke with left sided weakness. She lives at home alone. 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 Pt does have chronic pain, fibromyalgia, and osteoarthritis that she struggles with on an ongoing basis. Subjective/Events-last exam Reports no new issues except some dizziness Slept with her CPAP last night faithfully Moving left hand a bit and her left arm more the last 3 days so that is encouraging Actos restarted Bowels are moving. No urination problem. Participating in therapies aggressively. Reviewed accuchecks and they are stable Wants her cat to visit today with her daughter Objective Exam Vital Signs Vital Signs Date Time Temp Pulse Resp B/P (MAP) Pulse Ox O2 Delivery O2 Flow Rate FiO2 12/10/18 09:00 Room Air 12/10/18 06:00 97.9 61 18 138/73 (94) 96 12/09/18 07:26 1.00 Capillary Refill : General Appearance: No Apparent Distress, WD/WN, Chronically ill, Obese HEENT: PERRL/EOMI, Normal ENT Inspection, Pharynx Normal, Moist Mucous Membranes Neck: Full Range of Motion, Normal Inspection, Non Tender, Supple Respiratory: Chest Non Tender, Lungs Clear, Normal Breath Sounds, No Accessory Muscle Use, No Respiratory Distress Cardiovascular: Regular Rate, Rhythm, No Edema, No Gallop, No JVD, No Murmur Gastrointestinal: Normal Bowel Sounds, No Organomegaly, No Pulsatile Mass, Non Tender, Soft Back: Normal Inspection, No CVA Tenderness, No Vertebral Tenderness Extremity: Normal Capillary Refill, Normal Inspection, Normal Range of Motion ( except left upper ad lower extremity weakness), Non Tender, No Calf Tenderness, No Pedal Edema Neurologic/Psychiatric: Alert, Oriented x3, Normal Mood/Affect, Facial Droop ( left), Motor Weakness (left sided weakness, left facial droop, thickened speech but today, 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
--- NOTE | 2018-12-10 09:44 | Speech Therapy Daily Note ---
Speech Daily Progress Note Subjective Date Seen by Provider: Dec 10, 2018 Time Seen by Provider: 00:30 Patient states she has been getting dizzy the past couple of days. Objective Patient completed compensatory strategies as trained with oral intake with 80% accuracy and minimal cues. Assessment Assessment Current Status: Good Progress Treatment Plan Continue Plan of Care Communication Comprehension: 7 Expression: 7 Social Cognition Social Interaction: 7 Problem Solvin Memory: 7 Speech Short Term Goals Short Term Goals Short Term Goals 1) Patient will utilize compensatory strategies as trained for safe oral intake of the least restrictive diet with 90% or greater. 2) Patient will demonstrate safe oral intake of the least restrictive diet level with 90% or greater. Speech Nursing Home Goals Nursing Home Goals Patient will maintain adequate nutrition/hydration via safe effective swallow function. Speech-Plan Patient/Family Goals Patient/Family Goals: Patient plans to return home with family support post rehab. Treatment Plan Speech Therapy Treatment Plan: Continue Plan of Care Patient states she has some noted tingling in her left buccal area. Treatment Duration: Dec 14, 2018 Frequency: 4 times per week Estimated Hrs Per Day: .5 hour per day Rehab Potential: Fair Barriers to Learning: Patient has left sided weakness secondary to new onset CVA. Pt/Family Agrees to Plan: Yes Safety Risks/Education Teaching Recipient: Patient Teaching Methods: Discussion Response to Teaching: Verbalize Understanding Education Topics Provided: Continued safety of oral intake. Time Speech Therapy Time In: 08:30 Speech Therapy Time Out: 09:00 Total Billed Time: 30 Billed Treatment Time FEDERICO James MONTY Roland Dec 10, 2018 09:44
--- NOTE | 2018-12-10 10:30 | NUR ---
COMPLAIN STILL HAVING INTERMITTENT DIZZINESS AND RELUCTANT TO TAKE LORTAB. TAKING XS TYLENOL FOR FIBROMYALGIA PAIN. ENJOYED VISIT FROM DAUGHTER FROM [place].
[2018-12-10] MEDS: TRIAMTERENE/HCTZ 75-50 (MAXZIDE,DYAZIDE) TABLET PO SCH (11:21)
--- NOTE | 2018-12-10 12:49 | Physical Therapy Daily Note ---
PT Daily Note-Current Subjective Pt. in w/c . States she is concerned for DC plans as she does not have any family with a home that would accommodate her and non of them would be able to help her. Pt. states she has had difficulty in wt bearing as her left foot is so swollen Pain Numeric Pain Scale: 2 Location: Left Location Body Site: Shoulder Pain Description: Ache Mental Status Patient Orientation: Normal For Age Transfers Therapy Code Descriptions/Definitions Functional [place] Measure: 0=Not Assessed/NA 4=Minimal Assistance 1=Total Assistance 5=Supervision or Setup 2=Maximal Assistance 6=Modified [place] 3=Moderate Assistance 7=Complete [place] Therapy Quality Codes: 6 Independent with activity with or without an assistive device 5 Patient requires set up or clean up by helper. Patient completes activity by themselves 4 Supervision or touching assist (CGA). [place] provide cues , steadying assist 3 The helper provides less than half the effort to complete the activity 2 The helper provides more than half the effort to complete the activity 1 Dependent. The helper does all the effort to complete an activity 7 Patient refused to complete or attempt activity 9 The patient did not perform the activity before the current illness or injury 88 Not attempted due to Medical conditions or safety concerns Transfers (B, C, W/C) (FIM): 3 Scootin Rollin Supine to/from Sit: 3 Sit to/from Stand: 4 Weight Bearing Right Lower Extremity: Right Full Weight Bearing Left Lower Extremity: Left Full Weight Bearing Gait Training Does the Patient Walk?: Yes Gait (FIM): 1 Distance (FIM): 1=up to 49 ft (12ftx2) Gait Level of Assist: 3 Gait Persons Needed: 1 Gait Assistive Device: Handheld Assist (and rail on wall) Wheelchair Training Does the Pt Use a Wheelchair?: Yes Wheelchair (FIM): 1 Wheelchair Distance: 1=up to 49 ft (15ftx4) Wheelchair Level of Assist: 3 Type of Wheelchair: Manual needs assist to brake and to turn as she cant steer with only one foot on floor Exercises Supine Ex: Bridging, Ankle pumps (HC stretches left.), Quad Set, Rolling ( assisted), Glut sets, Heel Slides (assisted left), Short Arc Quads, Scooting, Straight leg raise (assisted left), Hip abd/add (assisted left) Supine Reps: 15 Seated Therapy Exercises: Sit to stand, Long arc quads, Hip flexion, Hip abd/ add Seated Reps: 15 Treatments much emphasis on sit to stand as well as SPTs both directions for TRFs Assessment Current Status: Good Progress dependent for w/c mob and TRFs as well as gait short distances PT Short Term Goals Short Term Goals Time Frame: Dec 11, 2018 Gait (FIM): 1 Gait Distance Comment: 10' Gait Level of Assist: 3 Gait Assistive Device: Walker Robby Wheelchair Distance: 150' PT Fci Goals Fci Goals PT Slab Miller Operator Goals Time Frame: Dec 25, 2018 Transfers (B,C,W/C) (FIM): 4 Sit to Lying (QC): 3 Lying-Sitting on Side/Bed(QC): 3 Sit to Stand (QC): 3 Rollin Roll Left to Right (QC): 3 Chair/[id number] Xfer(QC): 3 Car Transfer (QC): 3 Gait (FIM): 2 Distance: 50' Walk 10 feet (QC): 3 Walk 10ft-Uneven Surface(QC): 3 Walk 50ft with 2 Turns (QC): 3 Walk 150 ft (QC): 3 Gait Level of Assist: 4 Gait Assistive Device: Walker Robby Stairs (FIM): 1 # of Steps: 1 1 Step (curb) (QC): 3 Stairs Level Of Assist: 4 PT Plan Treatment/Plan Treatment Plan: Continue Plan of Care Treatment Plan: Bed Mobility, Concurrent Therapy, Education, Functional Activity Angelita, Functional Strength, Group Therapy, Gait, Safety, Therapeutic Exercise, Transfers Treatment Duration: Dec 25, 2018 Frequency: At least 5 of 7 days/Wk (IRF) Estimated Hrs Per Day: 1.5 hours per day Patient and/or Family Agrees t: Yes Safety Risks/Education Patient Education: Gait Training, Transfer Techniques, Correct Positioning, W/ C Management, Disease Process, Safety Issues Teaching Recipient: Patient Teaching Methods: Demonstration, Discussion Response to Teaching: Verbalize Understanding, Return Demonstration, Reinforcement Needed Time/GCodes Time In: 1000 Time Out: 1130 Total Billed Treatment Time: 90 Total Billed Treatment 1,w/c10m,GT20m,FA30m,EX30m G Codes Necessary: TAPAN Barton EXPERIMENTAL BOX TESTER Dec 10, 2018 12:48
--- NOTE | 2018-12-10 13:00 | NUR ---
ENJOYED VISIT FROM HER CAT. ORDER RECEIVED AND PET PASS SIGNED YESTERDAY. WAS CONCERNED ABOUT INCREASED SWELLING IN LEFT LEG BECAUSE HAS NOT BEEN TAKING DYAZIDE. DR. MLILER INFORMED AND STARTED BACK ON IT. VOIDING WELL.
--- NOTE | 2018-12-10 13:19 | Occupational Ther Daily Note ---
OT Current Status-Daily Note Subjective Pt. states that she has been dizzy this morning, and that her left foot is swollen. Nursing is notified of this, as well as physician. Appearance Pt. up in chair. Agrees to shower and work with OT. Mental Status/Objective Patient Orientation: Person, Place, Time, Situation Therapy Code Descriptions/Definitions Functional [place] Measure: 0=Not Assessed/NA 4=Minimal Assistance 1=Total Assistance 5=Supervision or Setup 2=Maximal Assistance 6=Modified [place] 3=Moderate Assistance 7=Complete [place] ADL-Treatment Therapy Code Descriptions/Definitions Functional [place] Measure: 0=Not Assessed/NA 4=Minimal Assistance 1=Total Assistance 5=Supervision or Setup 2=Maximal Assistance 6=Modified [place] 3=Moderate Assistance 7=Complete [place] Therapy Quality Codes: 6 Independent with activity with or without an assistive device 5 Patient requires set up or clean up by helper. Patient completes activity by themselves 4 Supervision or touching assist (CGA). [place] provide cues , steadying assist 3 The helper provides less than half the effort to complete the activity 2 The helper provides more than half the effort to complete the activity 1 Dependent. The helper does all the effort to complete an activity 7 Patient refused to complete or attempt activity 9 The patient did not perform the activity before the current illness or injury 88 Not attempted due to Medical conditions or safety concerns Grooming (FIM): 5 (Set up to brush hair.) Bathing (FIM): 4 (Pt. requires assistance to wash cari area in stance. Pt. attempts to do this herself, but can't reach effectively.) Shower/Bathe Self (QC): 4 Upper Body (FIM): 4 Upper Body Dressing (QC): 4 Lower Body Dressing (FIM): 2 (Pt. is able to don brief and pants over feet with assist using AE. Requires assistance in stance to focus puller hips and stomach area. Pt. requires assistance to don socks with sock aide.) Lower Body Dressing (QC): 2 On/Off Footwear (QC): 2 Transfers (B, C, W/C) (FIM): 4 (Min assist sit-stand and transfer from chair to wheelchair.) Shower Transfer(FIM): 4 Education OT Patient Education: Correct positioning, Modified ADL techniques, Progress toward Goal/Update tx plan, Purpose of tx/functional activities, Reviewed precautions, Rehab process, Transfer techniques Teaching Recipient: Patient Teaching Methods: Demonstration, Discussion Response to Teaching: Verbalize Understanding, Return Demonstration OT Short Term Goals Short Term Goals Time Frame: Dec 11, 2018 Upper Body Dressing(FIM): 3 Lower Body Dressing(FIM): 3 Toileting(FIM): 3 Toilet/Commode Transfer(FIM): 3 Additional Short Term Goals: 1-Demonstrate ADL Tasks, 2-Verbalize Understanding , 3-ImproveStrength/Angelita 1=Demonstrate adherence to instructed precautions during ADL tasks. 2=Patient will verbalize/demonstrate understanding of assistive devices/ modifications for ADL. 3=Patient will improve strength/tolerance for activity to enable patient to perform ADL's. OT Property Officer Goals Mcfp Goals Time Frame: Dec 28, 2018 Eating (FIM): 6 Eating (QC): 6 Groomin Oral Hygiene (QC): 6 Bathing(FIM): 4 Shower/Bathe Self (QC): 4 Upper Body Dressing(FIM): 5 Upper Body Dressing (QC): 5 Lower Body Dressing(FIM): 5 Lower Body Dressing (QC): 5 On/Off Footwear (QC): 5 Toileting(FIM): 5 Toileting Hygiene (QC): 5 Toilet/Commode Transfer(FIM): 5 Toilet/Commode Transfer (QC): 5 Shower Transfer(FIM): 5 Additional Goals: 1-Demonstrate ADL Tasks, 2-Verbalize Understanding, 3- ImproveStrength/Angelita 1=Demonstrate adherence to instructed precautions during ADL tasks. 2=Patient will verbalize/demonstrate understanding of assistive devices/ modifications for ADL. 3=Patient will improve strength/tolerance for activity to enable patient to perform ADL's. OT Education/Plan Problem List/Assessment Assessment: Decreased Activ Tolerance, Decreased UE Strength, Impaired Coordination, Impaired Funct Balance, Impaired I ADL's, Impaired Self-Care Skills, Restricted Funct UE ROM Discharge Recommendations Plan/Recommendations: Continue POC Therapy D/C Recommendations: Home w/ Family Support, Occupational Therapy Home Care, Scheduled Assistance Equpiment Recommendations-D/C: Hip Kit Treatment Plan/Plan of Care Treatment,Training & Education: Yes Patient would benefit from OT for education, treatment and training to promote independence in ADL's, mobility, safety and/or upper extremity function for ADL' s. Plan of Care: ADL Retraining, Functional Mobility, Group Exercise/Act as Ind, UE Funct Exercise/Act, UE Neuromus Re-Ed/Coord Treatment Duration: Dec 28, 2018 Frequency: At least 5 of 7 days/Wk (IRF) Estimated Hrs Per Day: 1.5 hours per day Agreement: Yes Rehab Potential: Good Time/GCodes Start Time: 09:00 Stop Time: 10:00 Total Time Billed (hr/min): 60 Billed Treatment Time 1, ADL x 4 CHELI LOPEZ OT Dec 10, 2018 13:19
--- NOTE | 2018-12-10 14:00 | Occupational Ther Daily Note ---
OT Current Status-Daily Note Subjective No pain reported. Appearance Pt up in chair. Agrees to work with OT. Mental Status/Objective Patient Orientation: Person, Place Therapy Code Descriptions/Definitions Functional [place] Measure: 0=Not Assessed/NA 4=Minimal Assistance 1=Total Assistance 5=Supervision or Setup 2=Maximal Assistance 6=Modified [place] 3=Moderate Assistance 7=Complete [place] ADL-Treatment Therapy Code Descriptions/Definitions Functional [place] Measure: 0=Not Assessed/NA 4=Minimal Assistance 1=Total Assistance 5=Supervision or Setup 2=Maximal Assistance 6=Modified [place] 3=Moderate Assistance 7=Complete [place] Therapy Quality Codes: 6 Independent with activity with or without an assistive device 5 Patient requires set up or clean up by helper. Patient completes activity by themselves 4 Supervision or touching assist (CGA). [place] provide cues , steadying assist 3 The helper provides less than half the effort to complete the activity 2 The helper provides more than half the effort to complete the activity 1 Dependent. The helper does all the effort to complete an activity 7 Patient refused to complete or attempt activity 9 The patient did not perform the activity before the current illness or injury 88 Not attempted due to Medical conditions or safety concerns Other Treatment Pt. participated in left UE ROM activities as well as e-stim for mechanical movement and neuro re-education. At beginning of treatment, pt. is able to demonstrate some active finger flexion but no active wrist extension. Pt. is able to flex left wrist. OT placed electrodes to facilitate wrist extension, but no movement elicited. OT placed electrodes to hand and finger flexion stimulation noted with 8 niraj-amps. Pt. tolerated this for approximately 10 minutes. After this, pt. worked on active movement of finger flexion. Pt. able to then demonstrate slight movement in wrist extension, and approximately 90 degrees of active elbow flexion. Pt. educated on doing these exercises on her own for increased functional movement of left UE. Pt. verbalizes understanding. All needs met in room. Education OT Patient Education: Correct positioning, Exercise program, Progress toward Goal/Update tx plan, Purpose of tx/functional activities, Reviewed precautions, Rehab process, Transfer techniques Teaching Recipient: Patient Teaching Methods: Demonstration, Discussion Response to Teaching: Verbalize Understanding, Return Demonstration OT Short Term Goals Short Term Goals Time Frame: Dec 11, 2018 Upper Body Dressing(FIM): 3 Lower Body Dressing(FIM): 3 Toileting(FIM): 3 Toilet/Commode Transfer(FIM): 3 Additional Short Term Goals: 1-Demonstrate ADL Tasks, 2-Verbalize Understanding , 3-ImproveStrength/Angelita 1=Demonstrate adherence to instructed precautions during ADL tasks. 2=Patient will verbalize/demonstrate understanding of assistive devices/ modifications for ADL. 3=Patient will improve strength/tolerance for activity to enable patient to perform ADL's. OT Residential Goals Residential Goals Time Frame: Dec 28, 2018 Eating (FIM): 6 Eating (QC): 6 Groomin Oral Hygiene (QC): 6 Bathing(FIM): 4 Shower/Bathe Self (QC): 4 Upper Body Dressing(FIM): 5 Upper Body Dressing (QC): 5 Lower Body Dressing(FIM): 5 Lower Body Dressing (QC): 5 On/Off Footwear (QC): 5 Toileting(FIM): 5 Toileting Hygiene (QC): 5 Toilet/Commode Transfer(FIM): 5 Toilet/Commode Transfer (QC): 5 Shower Transfer(FIM): 5 Additional Goals: 1-Demonstrate ADL Tasks, 2-Verbalize Understanding, 3- ImproveStrength/Angelita 1=Demonstrate adherence to instructed precautions during ADL tasks. 2=Patient will verbalize/demonstrate understanding of assistive devices/ modifications for ADL. 3=Patient will improve strength/tolerance for activity to enable patient to perform ADL's. OT Education/Plan Problem List/Assessment Assessment: Decreased Activ Tolerance, Decreased UE Strength, Impaired Coordination, Restricted Funct UE ROM Discharge Recommendations Plan/Recommendations: Continue POC Therapy D/C Recommendations: Home w/ Family Support, Occupational Therapy Home Care, Scheduled Assistance Treatment Plan/Plan of Care Treatment,Training & Education: Yes Patient would benefit from OT for education, treatment and training to promote independence in ADL's, mobility, safety and/or upper extremity function for ADL' s. Plan of Care: ADL Retraining, Functional Mobility, Group Exercise/Act as Ind, UE Funct Exercise/Act, UE Neuromus Re-Ed/Coord Treatment Duration: Dec 28, 2018 Frequency: At least 5 of 7 days/Wk (IRF) Estimated Hrs Per Day: 1.5 hours per day Agreement: Yes Rehab Potential: Good Time/GCodes Start Time: 13:20 Stop Time: 13:52 Total Time Billed (hr/min): 32 Billed Treatment Time 1, NM x 2 CHELI LOPEZ OT Dec 10, 2018 14:00
--- NOTE | 2018-12-10 16:00 | NUR ---
CPAP "SMELLED HOT" AND CHECKED BY R.TLilliam AND BIOMED AND DEEMED NOT TO USE. DR. WORTHINGTON CONSULTED. ABG'S DONE AND SETTINGS CALCULATED. USING HOSPITAL BIPAP AT THIS TIME.
[2018-12-10 17:14] LABS: ABG BASE EXCESS 4.6 MMOL/L (-2.5-2.5); ABG OXYGEN SATURATION 94 % (94-100); ABG PCO2 44 MMHG (35-45); ABG PH 7.43 (7.37-7.43); ABG PO2 66 MMHG (79-93); ABG TCO2 30.2 MMOL/L (21.0-31.0)
[2018-12-10 17:17] LABS: ALLENS TEST POSITIVE
[2018-12-10 17:18] LABS: INSPIRED O2 ROOM AIR; PATIENT TEMP 98.1; VENTILATOR NO
[2018-12-10 18:00] VITALS: BP 155/70
[2018-12-10] MEDS: ATORVASTATIN 20 MG (LIPITOR) TABLET PO SCH (21:05)
[2018-12-11] MEDS: LEVOTHYROXINE 50 MCG (LEVOTHROID) TAB PO SCH (06:33)
[2018-12-11] MEDS: inSUlin ASPART (NovoLOG) 1 UNIT/0.01 ML (CHARGE PER UNIT) SC SCH ×4 (06:34→21:40)
[2018-12-11] MEDS: ACETAMINOPHEN 500 MG TAB (TYLENOL) PO PRN ×2 (06:38→20:21)
[2018-12-11 06:49] VITALS: BP 135/83
[2018-12-11 08:33] VITALS: BP 151/63
[2018-12-11] MEDS: amLODIPine 10 MG (NORVASC) TAB PO SCH (08:38)
[2018-12-11] MEDS: TRIAMTERENE/HCTZ 75-50 (MAXZIDE,DYAZIDE) TABLET PO SCH (08:38)
[2018-12-11] MEDS: PANTOPRAZOLE 20 MG TABLET (PROTONIX) PO SCH (08:38)
[2018-12-11] MEDS: ASPIRIN E.C. 81 MG (ECOTRIN) TAB PO SCH (08:38)
[2018-12-11] MEDS: PIOGLITAZONE 30MG (ACTOS) TAB PO SCH ×2 (08:38→20:22)
[2018-12-11] MEDS: ENOXAPARIN 40 MG/0.4 ML (LOVENOX) SYR SC SCH ×2 (08:39→20:19)
[2018-12-11] MEDS: CELECOXIB 100 MG (CeleBREX) CAP PO SCH ×2 (08:41→20:20)
[2018-12-11] MEDS: DOCUSATE SODIUM 100 MG (COLACE) CAP PO SCH ×2 (09:00→20:21)
[2018-12-11] MEDS: TROLAMINE (ASPERCREME) 10% CR 90 GM TUBE TOP SCH ×2 (09:00→21:40)
--- NOTE | 2018-12-11 09:03 | PM&R Progress Note ---
Subjective HPI/CC On Admission Date Seen by Provider: Dec 11, 2018 Time Seen by Provider: 09:00 Chief complaint: Stroke with left sided weakness and dysphasia. HPI: This is a 68yoWF who moved to [place] in 2011 but remained a patient of TERESA [facility] doctor who presented with left sided weakness diagnosed with a stroke (out of tPA window of candidacy) and has been actively pursuing rehab since that time. At this current time she is still have dysphasia and difficulty speaking but her thought process is intact and she will need intensive therapy for the left sided weakness. Curry catheter has been maintained and that will be discontinued. Bowels are moving she reports after meds were given. I reviewed all of her home medication that included Celebrex and will maintain on Aspirin and low dose Statin therapy following a stroke per protocol. Pt is agreeable for inpatient rehab and intensive therapy to regain function following a devastating stroke with left sided weakness. She lives at home alone. 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 Pt does have chronic pain, fibromyalgia, and osteoarthritis that she struggles with on an ongoing basis. Subjective/Events-last exam Pt is dramatically improved with the left side movement of the hand, arm and leg. TENS unit will be applied. Tingling in the left leg and has kind of electrical shocks indicating return of muscle function. Accu-cheks are improved back on Actos. Review of Systems General: Fatigue Neurological: Weakness, Numbness, Incoordination Objective Exam Vital Signs Vital Signs Date Time Temp Pulse Resp B/P (MAP) Pulse Ox O2 Delivery O2 Flow Rate FiO2 12/11/18 20:13 94 Room Air 12/11/18 16:17 98.2 62 16 151/73 (99) 12/11/18 03:07 24.00 Capillary Refill : General Appearance: No Apparent Distress, WD/WN, Chronically ill, Obese HEENT: PERRL/EOMI, Normal ENT Inspection, Pharynx Normal, Moist Mucous Membranes Neck: Full Range of Motion, Normal Inspection, Non Tender, Supple Respiratory: Chest Non Tender, Lungs Clear, Normal Breath Sounds, No Accessory Muscle Use, No Respiratory Distress Cardiovascular: Regular Rate, Rhythm, No Edema, No Gallop, No JVD, No Murmur Gastrointestinal: Normal Bowel Sounds, No Organomegaly, No Pulsatile Mass, Non Tender, Soft Back: Normal Inspection, No CVA Tenderness, No Vertebral Tenderness Extremity: Normal Capillary Refill, Normal Inspection, Normal Range of Motion ( except left upper ad lower extremity weakness), Non Tender, No Calf Tenderness, No Pedal Edema Neurologic/Psychiatric: Alert, Oriented x3, Normal Mood/Affect, Facial Droop ( left), Motor Weakness (left sided weakness, left facial droop, thickened speech but today, 12/10/18 left hand planer hand improved and 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 Assessment/Plan Assessment and Plan Assess & Plan/Chief Complaint Assessment: s/p right BISTRO ATTENDANT stroke with left sided weakness HTN HTG HLP Hypothyroidism STEPH on CPAP Hypokalemia chronic and allergic to supplement DM OOC DVT PPx with Lovenox Plan: Intensive PT/OT/Speech therapies Reviewed HGA1C Monitor bowel function Fall risk management Actos home med restarted (1) Acute right BISTRO ATTENDANT stroke (2) DVT prophylaxis (3) Hyperglyceridemia (4) Hypokalemia (5) Weakness of left side of body (6) Difficulty speaking (7) Dysphagia (8) STEPH on CPAP (9) Non-insulin dependent type 2 diabetes mellitus (10) Essential (primary) hypertension (11) Obesity (12) Hypothyroidism Clinical Quality Measures DVT/VTE Risk/Contraindication: Risk Factor Score Per Nursin RFS Level Per Nursing on Admit: 4+=Very High LOREN MILLER DO Dec 11, 2018 09:03
--- NOTE | 2018-12-11 10:59 | Physical Therapy Daily Note ---
PT Daily Note-Current Subjective Pt. agrees to Rx. Shares that she has dealt with fibro myalgia since her 20s and is in 8-9/10 pain in her shoulders, back and hips today. Pt. states she wants to try her shoes today hoping they will help with foot drop on left Pain Numeric Pain Scale: 8 Location: Right Location Body Site: Shoulder Pain Description: Ache Comment: low back and hips as well Mental Status Patient Orientation: Normal For Age Attachments: Other-See Comments (trialed AFO left foot today) Transfers Therapy Code Descriptions/Definitions Functional [place] Measure: 0=Not Assessed/NA 4=Minimal Assistance 1=Total Assistance 5=Supervision or Setup 2=Maximal Assistance 6=Modified [place] 3=Moderate Assistance 7=Complete [place] Therapy Quality Codes: 6 Independent with activity with or without an assistive device 5 Patient requires set up or clean up by helper. Patient completes activity by themselves 4 Supervision or touching assist (CGA). [place] provide cues , steadying assist 3 The helper provides less than half the effort to complete the activity 2 The helper provides more than half the effort to complete the activity 1 Dependent. The helper does all the effort to complete an activity 7 Patient refused to complete or attempt activity 9 The patient did not perform the activity before the current illness or injury 88 Not attempted due to Medical conditions or safety concerns Transfers (B, C, W/C) (FIM): 3 Scootin Rollin Supine to/from Sit: 3 Sit to/from Stand: 3 Bed to/from Chair: 3 sit to stand is assisted by raising the levels of seating surface and use of lift chair but still requires mod to min assist and many cues for weight shift and technique. sup to sit required a psuedo rail from mat in gym as well as assist from side to sit and assist for LEs into bed. Weight Bearing Right Lower Extremity: Right Full Weight Bearing Left Lower Extremity: Left Full Weight Bearing Gait Training Does the Patient Walk?: Yes Gait (FIM): 1 Distance (FIM): 1=up to 49 ft (15ft) Gait Level of Assist: 3 Gait Persons Needed: 1 Gait Assistive Device: Walker Platform initiated gait with FWW platform on L while using AFO and pts shoes. w/c to follow close behind pt. very fatigued after 15 ft but appeared to be a good beginning at gait. needs instruction for step length and pattern as well as weight bearing and shift Wheelchair Training Does the Pt Use a Wheelchair?: Yes Wheelchair (FIM): 3 Wheelchair Distance: 3=150 ft (very slow) Wheelchair Level of Assist: 3 Type of Wheelchair: Manual switched w/cs to taller model, assisting sit to stand a bit. also added drip box tender on left brake which allows indep to lock both brakes Exercises Supine Ex: Bridging, Ankle pumps (HC stretches x 4 20 sec), Quad Set, Rolling, Glut sets, Heel Slides, Short Arc Quads, Scooting, Straight leg raise, Hip abd/ add Supine Reps: 20 (assist for part) Seated Therapy Exercises: Ankle pumps, Sit to stand, Long arc quads, Hip flexion, Hip abd/add Seated Reps: 12 Treatments rolling, sp to side to sit practiced as well as w/c mob Assessment Current Status: Good Progress TRFing SPTs more patent PT Short Term Goals Short Term Goals Time Frame: Dec 11, 2018 Gait (FIM): 1 Gait Distance Comment: 10' Gait Level of Assist: 3 Gait Assistive Device: Walker Robby Wheelchair Distance: 150' PT Micro Computer Data Processor Goals Micro Computer Data Processor Goals PT Micro Computer Data Processor Goals Time Frame: Dec 25, 2018 Transfers (B,C,W/C) (FIM): 4 Sit to Lying (QC): 3 Lying-Sitting on Side/Bed(QC): 3 Sit to Stand (QC): 3 Rollin Roll Left to Right (QC): 3 Chair/[id number] Xfer(QC): 3 Car Transfer (QC): 3 Gait (FIM): 2 Distance: 50' Walk 10 feet (QC): 3 Walk 10ft-Uneven Surface(QC): 3 Walk 50ft with 2 Turns (QC): 3 Walk 150 ft (QC): 3 Gait Level of Assist: 4 Gait Assistive Device: Walker [place] Stairs (FIM): 1 # of Steps: 1 1 Step (curb) (QC): 3 Stairs Level Of Assist: 4 PT Plan Treatment/Plan Treatment Plan: Continue Plan of Care Treatment Plan: Bed Mobility, Concurrent Therapy, Education, Functional Activity Angelita, Functional Strength, Group Therapy, Gait, Safety, Therapeutic Exercise, Transfers Treatment Duration: Dec 25, 2018 Frequency: At least 5 of 7 days/Wk (IRF) Estimated Hrs Per Day: 1.5 hours per day Patient and/or Family Agrees t: Yes Safety Risks/Education Patient Education: Gait Training, Transfer Techniques, Correct Positioning, W/ C Management, Disease Process, Safety Issues Teaching Recipient: Patient Teaching Methods: Demonstration, Discussion Response to Teaching: Verbalize Understanding, Return Demonstration, Reinforcement Needed Time/GCodes Time In: 1000 Time Out: 1100 Total Billed Treatment Time: 60 Total Billed Treatment 1,GT25m,FA20m,EX15m G Codes Necessary: TAPAN Barton PTA Dec 11, 2018 10:59
[2018-12-11] MEDS: HYDROcodone/APAP 5 MG/325 MG (LORTAB) TAB PO PRN (11:05)
--- NOTE | 2018-12-11 11:18 | Speech Therapy Daily Note ---
Speech Daily Progress Note Subjective Date Seen by Provider: Dec 11, 2018 Time Seen by Provider: 15:00 Patient was just getting up for the day when I arrived for our therapy session. Objective Patient continues to utilize compensatory strategies as trained with all oral intake. Patient consumed all of her banana and ice water without any overt s/s of aspiration. No verbal cues were needed this am. Assessment Assessment Current Status: Good Progress Treatment Plan Continue Plan of Care Communication Comprehension: 7 Expression: 7 Social Cognition Social Interaction: 7 Problem Solvin Memory: 7 Speech Short Term Goals Short Term Goals Short Term Goals 1) Patient will utilize compensatory strategies as trained for safe oral intake of the least restrictive diet with 90% or greater. 2) Patient will demonstrate safe oral intake of the least restrictive diet level with 90% or greater. Speech Half-Way Goals Half-Way Goals Patient will maintain adequate nutrition/hydration via safe effective swallow function. Speech-Plan Patient/Family Goals Patient/Family Goals: Patient plans to return home with her family's support post rehab. Treatment Plan Speech Therapy Treatment Plan: Continue Plan of Care Patient is progressing as a result of skilled ST services. Treatment Duration: Dec 14, 2018 Frequency: 4 times per week Estimated Hrs Per Day: .5 hour per day Rehab Potential: Good Barriers to Learning: Patient is a new onset CVA, however her cognition was not affected. Pt/Family Agrees to Plan: Yes Safety Risks/Education Teaching Recipient: Patient Teaching Methods: Discussion Response to Teaching: Verbalize Understanding Education Topics Provided: Continued safety of oral intake. Time Speech Therapy Time In: 08:45 Speech Therapy Time Out: 09:00 Total Billed Time: 15 Billed Treatment Time 1, MONTY Dean Dec 11, 2018 11:18
--- NOTE | 2018-12-11 11:41 | NUR ---
Assumed care of patient.
--- NOTE | 2018-12-11 13:30 | Occupational Ther Daily Note ---
OT Current Status-Daily Note Subjective No pain reported. Appearance Pt. up in chair. Agrees to work with OT. Mental Status/Objective Patient Orientation: Person, Place Therapy Code Descriptions/Definitions Functional [place] Measure: 0=Not Assessed/NA 4=Minimal Assistance 1=Total Assistance 5=Supervision or Setup 2=Maximal Assistance 6=Modified [place] 3=Moderate Assistance 7=Complete [place] ADL-Treatment Therapy Code Descriptions/Definitions Functional [place] Measure: 0=Not Assessed/NA 4=Minimal Assistance 1=Total Assistance 5=Supervision or Setup 2=Maximal Assistance 6=Modified [place] 3=Moderate Assistance 7=Complete [place] Therapy Quality Codes: 6 Independent with activity with or without an assistive device 5 Patient requires set up or clean up by helper. Patient completes activity by themselves 4 Supervision or touching assist (CGA). [place] provide cues , steadying assist 3 The helper provides less than half the effort to complete the activity 2 The helper provides more than half the effort to complete the activity 1 Dependent. The helper does all the effort to complete an activity 7 Patient refused to complete or attempt activity 9 The patient did not perform the activity before the current illness or injury 88 Not attempted due to Medical conditions or safety concerns Grooming (FIM): 5 (Set up at sink in wheelchair to brush hair and teeth.) Oral Hygiene (QC): 5 Toileting (FIM): 3 (Pt. attempts to pull down/up brief and pants in stance. Pt. does well, but requires assistance with this. Pt. issued toilet tongs to cleanse self. Pt. able to do this with instruction.) Toileting Hygiene (QC): 3 Transfers (B, C, W/C) (FIM): 4 (Min assist sit-stand.) Toilet/Commode Transfer (FIM): 4 Toilet Transfer (QC): 4 Other Treatment Pt. declined showering or dressing, as she did this yesterday. Pt. would like to work on left UE. Requests to use bathroom first. After toileting task, pt. transferred to wheelchair and taken to therapy gym. OT provided gentle PROM and stretch to left UE. No subluxation noted. OT facilitated scapular glide and PROM to end point, which is approximately 90 degrees. Completed gentle pectoral stretch and gentle compressions to shoulder joint. Facilitated bicep and tricep activation with muscle tapping. Pt. demonstrates good muscle facilitation in biceps and triceps. Pt. tolerated 8 niraj-amps of e-stim to left hand for flexion. Encouraged active movement after this task. Pt. taken back to room. All needs met up in chair. Education OT Patient Education: Correct positioning, Exercise program, Modified ADL techniques, Progress toward Goal/Update tx plan, Purpose of tx/functional activities, Reviewed precautions, Rehab process, Transfer techniques Teaching Recipient: Patient Teaching Methods: Demonstration, Discussion Response to Teaching: Verbalize Understanding, Return Demonstration OT Short Term Goals Short Term Goals Time Frame: Dec 11, 2018 Upper Body Dressing(FIM): 3 Lower Body Dressing(FIM): 3 Toileting(FIM): 3 Toilet/Commode Transfer(FIM): 3 Additional Short Term Goals: 1-Demonstrate ADL Tasks, 2-Verbalize Understanding , 3-ImproveStrength/Angelita 1=Demonstrate adherence to instructed precautions during ADL tasks. 2=Patient will verbalize/demonstrate understanding of assistive devices/ modifications for ADL. 3=Patient will improve strength/tolerance for activity to enable patient to perform ADL's. OT Lab Clerk Goals Care Home Goals Time Frame: Dec 28, 2018 Eating (FIM): 6 Eating (QC): 6 Groomin Oral Hygiene (QC): 6 Bathing(FIM): 4 Shower/Bathe Self (QC): 4 Upper Body Dressing(FIM): 5 Upper Body Dressing (QC): 5 Lower Body Dressing(FIM): 5 Lower Body Dressing (QC): 5 On/Off Footwear (QC): 5 Toileting(FIM): 5 Toileting Hygiene (QC): 5 Toilet/Commode Transfer(FIM): 5 Toilet/Commode Transfer (QC): 5 Shower Transfer(FIM): 5 Additional Goals: 1-Demonstrate ADL Tasks, 2-Verbalize Understanding, 3- ImproveStrength/Angelita 1=Demonstrate adherence to instructed precautions during ADL tasks. 2=Patient will verbalize/demonstrate understanding of assistive devices/ modifications for ADL. 3=Patient will improve strength/tolerance for activity to enable patient to perform ADL's. OT Education/Plan Problem List/Assessment Assessment: Decreased Activ Tolerance, Decreased UE Strength, Dependent Transfers, Impaired Coordination, Impaired I ADL's, Impaired Self-Care Skills, Restricted Funct UE ROM Discharge Recommendations Plan/Recommendations: Continue POC Therapy D/C Recommendations: 24 hr Supervision Treatment Plan/Plan of Care Treatment,Training & Education: Yes Patient would benefit from OT for education, treatment and training to promote independence in ADL's, mobility, safety and/or upper extremity function for ADL' s. Plan of Care: ADL Retraining, Functional Mobility, Group Exercise/Act as Ind, UE Funct Exercise/Act, UE Neuromus Re-Ed/Coord Treatment Duration: Dec 28, 2018 Frequency: At least 5 of 7 days/Wk (IRF) Estimated Hrs Per Day: 1.5 hours per day Agreement: Yes Rehab Potential: Good Time/GCodes Start Time: 09:00 Stop Time: 10:00 Total Time Billed (hr/min): 60 Billed Treatment Time 1, ADL x 15minutes, FA x 30minutes, NM x 15minutes CHELI LOPEZ OT Dec 11, 2018 13:30
--- NOTE | 2018-12-11 13:45 | Occupational Ther Daily Note ---
OT Current Status-Daily Note Subjective No pain reported. Appearance Pt. up in chair. Agrees to work with OT. Mental Status/Objective Patient Orientation: Person, Place, Time, Mumbles Therapy Code Descriptions/Definitions Functional [place] Measure: 0=Not Assessed/NA 4=Minimal Assistance 1=Total Assistance 5=Supervision or Setup 2=Maximal Assistance 6=Modified [place] 3=Moderate Assistance 7=Complete [place] ADL-Treatment Therapy Code Descriptions/Definitions Functional [place] Measure: 0=Not Assessed/NA 4=Minimal Assistance 1=Total Assistance 5=Supervision or Setup 2=Maximal Assistance 6=Modified [place] 3=Moderate Assistance 7=Complete [place] Therapy Quality Codes: 6 Independent with activity with or without an assistive device 5 Patient requires set up or clean up by helper. Patient completes activity by themselves 4 Supervision or touching assist (CGA). [place] provide cues , steadying assist 3 The helper provides less than half the effort to complete the activity 2 The helper provides more than half the effort to complete the activity 1 Dependent. The helper does all the effort to complete an activity 7 Patient refused to complete or attempt activity 9 The patient did not perform the activity before the current illness or injury 88 Not attempted due to Medical conditions or safety concerns Transfers (B, C, W/C) (FIM): 4 (Min assist sit-stand.) Toilet/Commode Transfer (FIM): 4 Toilet Transfer (QC): 4 Other Treatment Pt. transferred from chair in room to wheelchair. OT brought pt. to therapy gym. Worked on standing at table and weight bearing through left UE. Stood with min assist for sit-stand. Once up, pt. standing at table, pt. is able to balance self while leaning on table. Worked on weight bear, and then arm slides with pillow case, with left UE supported on table. Pt. is able to demonstrate slight active movement of left shoulder, and increasing movement of left elbow in flexion/extension. Pt. is unable to "wiggle" left fingers, but does demonstrate emerging wrist extension. Pt. does state that she is tired and having increased fatigue with movement. Pt. transferred back to wheelchair and taken to room. Transferred back to chair with min assist. All needs met in room. Education OT Patient Education: Correct positioning, Exercise program, Modified ADL techniques, Progress toward Goal/Update tx plan, Purpose of tx/functional activities, Reviewed precautions, Rehab process, Transfer techniques Teaching Recipient: Patient Teaching Methods: Demonstration, Discussion Response to Teaching: Verbalize Understanding, Return Demonstration OT Short Term Goals Short Term Goals Time Frame: Dec 11, 2018 Upper Body Dressing(FIM): 3 Lower Body Dressing(FIM): 3 Toileting(FIM): 3 Toilet/Commode Transfer(FIM): 3 Additional Short Term Goals: 1-Demonstrate ADL Tasks, 2-Verbalize Understanding , 3-ImproveStrength/Angelita 1=Demonstrate adherence to instructed precautions during ADL tasks. 2=Patient will verbalize/demonstrate understanding of assistive devices/ modifications for ADL. 3=Patient will improve strength/tolerance for activity to enable patient to perform ADL's. OT Perioperative Nurse Goals Perioperative Nurse Goals Time Frame: Dec 28, 2018 Eating (FIM): 6 Eating (QC): 6 Groomin Oral Hygiene (QC): 6 Bathing(FIM): 4 Shower/Bathe Self (QC): 4 Upper Body Dressing(FIM): 5 Upper Body Dressing (QC): 5 Lower Body Dressing(FIM): 5 Lower Body Dressing (QC): 5 On/Off Footwear (QC): 5 Toileting(FIM): 5 Toileting Hygiene (QC): 5 Toilet/Commode Transfer(FIM): 5 Toilet/Commode Transfer (QC): 5 Shower Transfer(FIM): 5 Additional Goals: 1-Demonstrate ADL Tasks, 2-Verbalize Understanding, 3- ImproveStrength/Angelita 1=Demonstrate adherence to instructed precautions during ADL tasks. 2=Patient will verbalize/demonstrate understanding of assistive devices/ modifications for ADL. 3=Patient will improve strength/tolerance for activity to enable patient to perform ADL's. OT Education/Plan Problem List/Assessment Assessment: Decreased Activ Tolerance, Decreased UE Strength, Dependent Transfers, Impaired Bed Mobility, Impaired Coordination, Impaired I ADL's, Impaired Self-Care Skills, Restricted Funct UE ROM Discharge Recommendations Plan/Recommendations: Continue POC Therapy D/C Recommendations: 24 hr Supervision, Home w/ Family Support, Occupational Therapy Home Care, Scheduled Assistance Equpiment Recommendations-D/C: Hip Kit Treatment Plan/Plan of Care Treatment,Training & Education: Yes Patient would benefit from OT for education, treatment and training to promote independence in ADL's, mobility, safety and/or upper extremity function for ADL' s. Plan of Care: ADL Retraining, Functional Mobility, Group Exercise/Act as Ind, UE Funct Exercise/Act, UE Neuromus Re-Ed/Coord Treatment Duration: Dec 28, 2018 Frequency: At least 5 of 7 days/Wk (IRF) Estimated Hrs Per Day: 1.5 hours per day Agreement: Yes Rehab Potential: Good Time/GCodes Start Time: 11:30 Stop Time: 12:00 Total Time Billed (hr/min): 30 Billed Treatment Time 1, FA x 2 CHELI LOPEZ OT Dec 11, 2018 13:45
--- NOTE | 2018-12-11 14:33 | Physical Therapy Daily Note ---
PT Daily Note-Current Subjective Pt. in recliner and states she wouldnt mind laying down because morning PT really wore her out "that walking" Pain Location: No Pain Reported Mental Status Patient Orientation: Normal For Age Transfers Therapy Code Descriptions/Definitions Functional [place] Measure: 0=Not Assessed/NA 4=Minimal Assistance 1=Total Assistance 5=Supervision or Setup 2=Maximal Assistance 6=Modified [place] 3=Moderate Assistance 7=Complete [place] Therapy Quality Codes: 6 Independent with activity with or without an assistive device 5 Patient requires set up or clean up by helper. Patient completes activity by themselves 4 Supervision or touching assist (CGA). [place] provide cues , steadying assist 3 The helper provides less than half the effort to complete the activity 2 The helper provides more than half the effort to complete the activity 1 Dependent. The helper does all the effort to complete an activity 7 Patient refused to complete or attempt activity 9 The patient did not perform the activity before the current illness or injury 88 Not attempted due to Medical conditions or safety concerns Transfers (B, C, W/C) (FIM): 4 Scootin Rollin Supine to/from Sit: 4 Sit to/from Stand: 4 used more momentum to get in bed using RLE to support LLE Weight Bearing Right Lower Extremity: Right Full Weight Bearing Left Lower Extremity: Left Full Weight Bearing Gait Training Does the Patient Walk?: Yes Gait (FIM): 1 Distance (FIM): 1=up to 49 ft (6ft) Gait Level of Assist: 4 Gait Persons Needed: 1 Gait Assistive Device: Walker Robby good handling of robby walker chair to bed. min assist and many cues for use of this device Exercises Supine Ex: Straight leg raise, Hip abd/add Supine Reps: 12 Seated Therapy Exercises: Ankle pumps, Sit to stand, Long arc quads Seated Reps: 10 Assessment Current Status: Good Progress improved gait and balance PT Short Term Goals Short Term Goals Time Frame: Dec 11, 2018 Gait (FIM): 1 Gait Distance Comment: 10' Gait Level of Assist: 3 Gait Assistive Device: Walker Robby Wheelchair Distance: 150' PT Care Home Goals Musical Instrument Maker Goals PT Care Home Goals Time Frame: Dec 25, 2018 Transfers (B,C,W/C) (FIM): 4 Sit to Lying (QC): 3 Lying-Sitting on Side/Bed(QC): 3 Sit to Stand (QC): 3 Rollin Roll Left to Right (QC): 3 Chair/Izh-my-Nofjs Xfer(QC): 3 Car Transfer (QC): 3 Gait (FIM): 2 Distance: 50' Walk 10 feet (QC): 3 Walk 10ft-Uneven Surface(QC): 3 Walk 50ft with 2 Turns (QC): 3 Walk 150 ft (QC): 3 Gait Level of Assist: 4 Gait Assistive Device: Walker Robby Stairs (FIM): 1 # of Steps: 1 1 Step (curb) (QC): 3 Stairs Level Of Assist: 4 PT Plan Treatment/Plan Treatment Plan: Continue Plan of Care Treatment Plan: Bed Mobility, Concurrent Therapy, Education, Functional Activity Angelita, Functional Strength, Group Therapy, Gait, Safety, Therapeutic Exercise, Transfers Treatment Duration: Dec 25, 2018 Frequency: At least 5 of 7 days/Wk (IRF) Estimated Hrs Per Day: 1.5 hours per day Patient and/or Family Agrees t: Yes Safety Risks/Education Patient Education: Gait Training, Transfer Techniques, Correct Positioning, Safety Issues Teaching Recipient: Patient Teaching Methods: Demonstration, Discussion Response to Teaching: Verbalize Understanding, Return Demonstration, Reinforcement Needed Time/GCodes Time In: 1410 Time Out: 1430 Total Billed Treatment Time: 20 Total Billed Treatment 1,FA20m G Codes Necessary: TAPAN Barton PTA Dec 11, 2018 14:33
[2018-12-11 16:17] VITALS: BP 151/73
[2018-12-11] MEDS: ATORVASTATIN 20 MG (LIPITOR) TABLET PO SCH (20:19)
[2018-12-12 05:02] VITALS: BP 152/70
[2018-12-12] MEDS: inSUlin ASPART (NovoLOG) 1 UNIT/0.01 ML (CHARGE PER UNIT) SC SCH ×4 (06:23→21:27)
[2018-12-12] MEDS: ACETAMINOPHEN 500 MG TAB (TYLENOL) PO PRN ×3 (06:23→21:33)
[2018-12-12] MEDS: LEVOTHYROXINE 50 MCG (LEVOTHROID) TAB PO SCH (06:23)
[2018-12-12 08:00] VITALS: BP 145/72
[2018-12-12] MEDS: CELECOXIB 100 MG (CeleBREX) CAP PO SCH ×2 (08:33→21:26)
[2018-12-12] MEDS: TRIAMTERENE/HCTZ 75-50 (MAXZIDE,DYAZIDE) TABLET PO SCH (08:33)
[2018-12-12] MEDS: ASPIRIN E.C. 81 MG (ECOTRIN) TAB PO SCH (08:33)
[2018-12-12] MEDS: PANTOPRAZOLE 20 MG TABLET (PROTONIX) PO SCH (08:33)
[2018-12-12] MEDS: PIOGLITAZONE 30MG (ACTOS) TAB PO SCH ×2 (08:33→21:25)
[2018-12-12] MEDS: amLODIPine 10 MG (NORVASC) TAB PO SCH (08:33)
[2018-12-12] MEDS: HYDROcodone/APAP 5 MG/325 MG (LORTAB) TAB PO PRN (08:35)
[2018-12-12] MEDS: DOCUSATE SODIUM 100 MG (COLACE) CAP PO SCH ×2 (08:36→21:26)
--- NOTE | 2018-12-12 10:24 | PM&R Progress Note ---
Subjective HPI/CC On Admission Date Seen by Provider: Dec 12, 2018 Time Seen by Provider: 10:00 Chief complaint: Stroke with left sided weakness and dysphasia. HPI: This is a 68yoWF who moved to [place] in 2011 but remained a patient of TERESA Monroe doctor who presented with left sided weakness diagnosed with a stroke (out of tPA window of candidacy) and has been actively pursuing rehab since that time. At this current time she is still have dysphasia and difficulty speaking but her thought process is intact and she will need intensive therapy for the left sided weakness. Curry catheter has been maintained and that will be discontinued. Bowels are moving she reports after meds were given. I reviewed all of her home medication that included Celebrex and will maintain on Aspirin and low dose Statin therapy following a stroke per protocol. Pt is agreeable for inpatient rehab and intensive therapy to regain function following a devastating stroke with left sided weakness. She lives at home alone. 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 Pt does have chronic pain, fibromyalgia, and osteoarthritis that she struggles with on an ongoing basis. Subjective/Events-last exam Patient participating in intensive therapy in the left hand arm and left leg are really responding Denies any pain Talked about the cholesterol level and wanted to know what her new level was I told her that would be done as an outpatient when she is discharged by her primary care provider Wondered about CT scan whether or not that would be repeated but there is nondistended indication to do serial CT scans for surveillance after a stroke it is based on clinical response and there would be no medical management changes brought about from a repeat CT scan Doing very well and motivated Uplifted attitude Review of Systems General: Fatigue Neurological: Weakness, Numbness, Incoordination Objective Exam Vital Signs Vital Signs Date Time Temp Pulse Resp B/P (MAP) Pulse Ox O2 Delivery O2 Flow Rate FiO2 12/12/18 09:00 Room Air 12/12/18 05:02 98.0 57 16 152/70 (97) 95 12/11/18 22:51 24.00 Capillary Refill : General Appearance: No Apparent Distress, WD/WN, Chronically ill, Obese HEENT: PERRL/EOMI, Normal ENT Inspection, Pharynx Normal, Moist Mucous Membranes Neck: Full Range of Motion, Normal Inspection, Non Tender, Supple Respiratory: Chest Non Tender, Lungs Clear, Normal Breath Sounds, No Accessory Muscle Use, No Respiratory Distress Cardiovascular: Regular Rate, Rhythm, No Edema, No Gallop, No JVD, No Murmur Gastrointestinal: Normal Bowel Sounds, No Organomegaly, No Pulsatile Mass, Non Tender, Soft Back: Normal Inspection, No CVA Tenderness, No Vertebral Tenderness Extremity: Normal Capillary Refill, Normal Inspection, Normal Range of Motion ( except left upper ad lower extremity weakness), Non Tender, No Calf Tenderness, No Pedal Edema Neurologic/Psychiatric: Alert, Oriented x3, Normal Mood/Affect, Facial Droop ( left), Motor Weakness (left sided weakness, left facial droop, thickened speech but today, 12/10/18 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
--- NOTE | 2018-12-12 10:25 | Individualized Plan of Care ---
Individualized Plan of Care Rehab Nursing IPOC Order Admission Date Dec 04, 2018 at 09:49 Current Orders Orders Admission Order(Inpt,Obs,Sdc) (12/04/18 08:33) Vital Signs: Routine (Order) 08,16,00 (12/04/18 08:33) Trade Marker-Inpt Rehab Con (12/04/18 08:33) Rehab Nursing Orders-Ipoc (12/04/18 08:33) Physical Therapy Rehab Orders (12/04/18 08:33) Occupational Therapy Rehab Ord (12/04/18 08:33) Speech Therapy Rehab Orders (12/04/18 08:33) Intake & Output 06,14,22 (12/04/18 08:33) Precautions (Aru) (12/04/18 08:33) Weekly Weight (Lbs) WEEK (12/04/18 08:33) Rehab-Intensity Of Therapy (12/04/18 08:33) Code/Resuscitation (12/04/18 08:33) Initiate Admission Nursing Pro .admission (12/04/18 08:33) Physician Orders (12/04/18 09:54) Code/Resuscitation (12/04/18 10:16) Ambulate 08,12,20 (12/04/18 10:16) Catheter(Urinary) Discontinue (12/04/18 10:16) Incentive Spirometry (Nursing) Q2H (12/04/18 10:16) Initiate/Follow Protocol (12/04/18 10:16) Sequential Compression Device 08,20 (12/04/18 10:16) Cho 60g/M 3snack (16-2000 [place]) (12/04/18 Lunch) Acetaminophen Tablet/Caplet (Tylenol T (12/04/18 10:30) Albuterol/Ipra Inhalation Soln (Duoneb I (12/04/18 21:00) Aspirin Enteric Coated Tablet (Ecotrin T (12/05/18 09:00) Atorvastatin Tablet (Lipitor Tablet) (12/04/18 21:00) Bisacodyl Suppository (Dulcolax Supposit (12/04/18 10:30) Celecoxib Capsule (Celebrex Capsule) (12/04/18 21:00) Docusate Sodium Capsule (Colace Capsule) (12/04/18 21:00) Enoxaparin Injection (Lovenox Injection) (12/04/18 21:00) Hydrocodone/Apap 7.5/325 Tab (Lortab 7. (12/04/18 10:30) Levothyroxine Tablet (Synthroid Tablet) (12/05/18 06:30) Loperamide Capsule (Imodium Capsule) (12/04/18 10:30) Magnesium Hydroxide Oral Susp (Mom Oral (12/04/18 10:30) Insulin Aspart (Novolog) (Novolog (Charg (12/04/18 11:00) Pantoprazole Tablet (Protonix Tablet) (12/05/18 09:00) Amlodipine Tablet (Norvasc Tablet) (12/05/18 09:00) Advance Directives Consult (12/04/18 10:16) Incentive Spirometry Initial (12/04/18 10:16) Rt Request For Service (12/04/18 10:16) Svn Small Volume Nebulizer (12/04/18 10:16) Oxygen Delivery Set Up (12/04/18 10:16) Svn Small Volume Nebulizer (12/04/18 10:16) Incentive Spirometry (Nursing) Q2H (12/04/18 10:16) Alprazolam Tablet (Xanax Tablet) (12/04/18 10:30) Calcium Carbonate Chew Tablet (Antacid C (12/04/18 10:30) Diphenhydramine Tablet (Benadryl Tablet) (12/04/18 10:30) Melatonin Tablet (Melatonin Tablet) (12/04/18 10:30) Ondansetron Injection (Zofran Injectio (12/04/18 10:30) Ondansetron Oral Dissolve Tab (Zofran (12/04/18 10:30) Ambulate 08,12,20 (12/04/18 10:52) Dvt/Vte Risk - Notifiy Physici 08 (12/04/18 10:52) Request For Dysphagia Services (12/04/18 10:57) Request Ot Evaluate & Treat (12/04/18 10:57) Influenza Quad (5+Yoa) 2017- (Afluria (12/04/18 11:15) Patient Visit (12/04/18 ) Speech Sound Lang Comp (12/04/18 ) Patient Visit (12/04/18 ) Pt Eval Moderate Complexity (12/04/18 ) Functional Activities, Ea 15 (12/04/18 ) Cbc With Automated Diff (12/05/18 06:00) Comprehensive Metabolic Panel (12/05/18 06:00) Hemoglobin A1c (12/05/18 06:00) Potassium Chloride (Tablet) (Klor Con Ta (12/05/18 09:00) Potassium Chloride (Tablet) (Klor Con Ta (12/06/18 07:00) Acetaminophen Tablet (Tylenol Tablet) (12/05/18 09:30) Patient Visit (12/05/18 ) Dysphagia Therapy (12/05/18 ) Patient Visit (12/05/18 ) Wheelchair Mgmt/Propulsn 15min (12/05/18 ) Gait Training, Ea 15 Min (12/05/18 ) Functional Activities, Ea 15 (12/05/18 ) Patient Visit (12/05/18 ) Therapeutic, Group (12/05/18 ) Patient Visit (12/06/18 ) Dysphagia Therapy (12/06/18 ) Patient Visit (12/06/18 ) Functional Activities, Ea 15 (12/06/18 ) Exercise Therap, Ea 15 Min (12/06/18 ) Wheelchair Mgmt/Propulsn 15min (12/06/18 ) Gait Training, Ea 15 Min (12/06/18 ) Hydrocodone/Apap 5/325 Tablet (Lortab 5 (12/07/18 09:15) Sucralfate Tablet (Carafate Tablet) (12/07/18 10:45) Patient Visit (12/07/18 ) Gait Training, Ea 15 Min (12/07/18 ) Wheelchair Mgmt/Propulsn 15min (12/07/18 ) Exercise Therap, Ea 15 Min (12/07/18 ) Patient Visit (12/07/18 ) Dysphagia Therapy (12/07/18 ) Patient Visit (12/07/18 ) Therapeutic, Group (12/07/18 ) Patient Visit (12/08/18 ) Gait Training, Ea 15 Min (12/08/18 ) Exercise Therap, Ea 15 Min (12/08/18 ) Insulin Determir (Per Unit) (Levemir (Pe (12/08/18 21:00) Pioglitazone Tablet (Actos Tablet) (12/09/18 21:00) Pioglitazone Tablet (Actos Tablet) (12/10/18 09:00) Pet Pass (12/09/18 12:26) Trolamine 10% Cream (Aspercreme 10% Crea (12/09/18 12:30) General/Regular (12/10/18 Breakfast) Triamterene/Hctz 75-50 Tablet (Maxzide 7 (12/10/18 09:45) Patient Visit (12/10/18 ) Dysphagia Therapy (12/10/18 ) Patient Visit (12/10/18 ) Wheelchair Mgmt/Propulsn 15min (12/10/18 ) Gait Training, Ea 15 Min (12/10/18 ) Exercise Therap, Ea 15 Min (12/10/18 ) Functional Activities, Ea 15 (12/10/18 ) Patient Visit (12/10/18 ) Wheelchair Mgmt/Propulsn 15min (12/10/18 ) Gait Training, Ea 15 Min (12/10/18 ) Functional Activities, Ea 15 (12/10/18 ) Exercise Therap, Ea 15 Min (12/10/18 ) Consult Physician (12/10/18 15:50) Bipap (Bilevel) Set Up (12/10/18 16:56) Arterial Blood Gas (12/10/18 17:05) Arterial Blood Draw (12/10/18 ) Patient Visit (12/11/18 ) Dysphagia Therapy (12/11/18 ) Patient Visit (12/11/18 ) Gait Training, Ea 15 Min (12/11/18 ) Functional Activities, Ea 15 (12/11/18 ) Exercise Therap, Ea 15 Min (12/11/18 ) Rehab Nursing Orders: Ongoing Assess. of Function Status, Disease Management & Educaiton, Management of Risks & Complications, Patient/Family Support, Safety Management Intensity of Therapy to be met Patient to be seen: Min.3h per day/5 of 7d PT IPOC Problem List: Activity Tolerance, Functional Strength, Safety, Balance, Gait, Transfer, Bed Mobility, ROM Treatment Plan: Continue Plan of Care Bed Mobility, Concurrent Therapy, Education, Functional Activity Angelita, Functional Strength, Group Therapy, Gait, Safety, Therapeutic Exercise, Transfers Treatment Duration: Dec 25, 2018 Frequency: At least 5 of 7 days/Wk (IRF) Estimated Hrs Per Day: 1.5 hours per day OT IPOC Problems: Decreased Activ Tolerance, Decreased UE Strength, Dependent Transfers , Impaired Bed Mobility, Impaired Coordination, Impaired I ADL's, Impaired Self- Care Skills, Restricted Funct UE ROM OT Treatment, Training and Edu: Yes Plan of Care: ADL Retraining, Functional Mobility, Group Exercise/Act as Ind, UE Funct Exercise/Act, UE Neuromus Re-Ed/Coord Treatment Duration: Dec 28, 2018 Frequency: At least 5 of 7 days/Wk (IRF) Estimated Hrs Per Day: 1.[address] IPOC Speech Therapy Treatment Plan: Continue Plan of Care Treatment Duration: Dec 14, 2018 Frequency: 4 times per week Estimated Hrs Per Day: .5 hour per day Trade Marker/Case Mgmt Trade Marker/Case Managemen: Discharge Planning Dietitian/Electric Crane Operator Dietitian/Electric Crane Operator to monitor nutritional status and make changes and/or recommendations as needed and work with speech pathology on dietary upgrades as the occur. Physician IPOC Medical Issues being managed closely and that require the 24 hour availability of a physician: Blood sugar monitoring Bowel management Fall risk Medical Issues: Falls Precautions, Fluid/Electrolyte/Nutrition Balance Brief Synthesis of Preadmission Screen, Post-Admission Evaluation, and Therapy Evaluations: PT and OT will work aggressively to improve left sided weakness in transfers and fall prevention and improve independent ADL's Medical Prognosis: Good Anticipated Length of Stay: 14 days LOREN MILLER DO Dec 12, 2018 10:25
--- NOTE | 2018-12-12 11:07 | Physical Therapy Daily Note ---
PT Daily Note-Current Subjective Pt. states she has pain all over, but no different than she has had for years, but tired from the therapies. Agrees to Rx and is pleased with her progress Pain Numeric Pain Scale: 6 Location: Medial Location Body Site: Back (upper) Pain Description: Ache Mental Status Patient Orientation: Normal For Age Transfers Therapy Code Descriptions/Definitions Functional [place] Measure: 0=Not Assessed/NA 4=Minimal Assistance 1=Total Assistance 5=Supervision or Setup 2=Maximal Assistance 6=Modified [place] 3=Moderate Assistance 7=Complete [place] Therapy Quality Codes: 6 Independent with activity with or without an assistive device 5 Patient requires set up or clean up by helper. Patient completes activity by themselves 4 Supervision or touching assist (CGA). [place] provide cues , steadying assist 3 The helper provides less than half the effort to complete the activity 2 The helper provides more than half the effort to complete the activity 1 Dependent. The helper does all the effort to complete an activity 7 Patient refused to complete or attempt activity 9 The patient did not perform the activity before the current illness or injury 88 Not attempted due to Medical conditions or safety concerns Transfers (B, C, W/C) (FIM): 5 Scootin Rollin Supine to/from Sit: 5 Sit to/from Stand: 5 Bed to/from Chair: 5 all surfaces raised with cushions or firm pillows which allows sit to stand SBA level. sup to side to sit improved this date with pt rolling to right out of bed with bed rail used and bed flat Weight Bearing Right Lower Extremity: Right Full Weight Bearing Left Lower Extremity: Left Full Weight Bearing Gait Training Does the Patient Walk?: Yes Distance (FIM): 1=up to 49 ft (40ft, 10ft,5ft) Gait Level of Assist: 4 Gait Persons Needed: 1 Gait Assistive Device: Walker Platform w/c to follow, CGA to min for wt shift and balance, side steps with robby walker left and right at EOB Exercises Supine Ex: Bridging, Quad Set, Rolling, Glut sets, Heel Slides (assist right), Short Arc Quads, Scooting, Straight leg raise, Hip abd/add Supine Reps: 12 Treatments much emphasis on TRFs, WC mobility Assessment Current Status: Good Progress TRFs improving, gait improving PT Short Term Goals Short Term Goals Time Frame: Dec 11, 2018 Gait (FIM): 1 Gait Distance Comment: 10' Gait Level of Assist: 3 Gait Assistive Device: Walker Robby Wheelchair Distance: 150' PT Foundry Manager Goals Chcf Goals PT Chcf Goals Time Frame: Dec 25, 2018 Transfers (B,C,W/C) (FIM): 4 Sit to Lying (QC): 3 Lying-Sitting on Side/Bed(QC): 3 Sit to Stand (QC): 3 Rollin Roll Left to Right (QC): 3 Chair/Pwi-ky-Ezlnd Xfer(QC): 3 Car Transfer (QC): 3 Gait (FIM): 2 Distance: 50' Walk 10 feet (QC): 3 Walk 10ft-Uneven Surface(QC): 3 Walk 50ft with 2 Turns (QC): 3 Walk 150 ft (QC): 3 Gait Level of Assist: 4 Gait Assistive Device: Walker Robby Stairs (FIM): 1 # of Steps: 1 1 Step (curb) (QC): 3 Stairs Level Of Assist: 4 PT Plan Treatment/Plan Treatment Plan: Continue Plan of Care Treatment Plan: Bed Mobility, Concurrent Therapy, Education, Functional Activity Angelita, Functional Strength, Group Therapy, Gait, Safety, Therapeutic Exercise, Transfers Treatment Duration: Dec 25, 2018 Frequency: At least 5 of 7 days/Wk (IRF) Estimated Hrs Per Day: 1.5 hours per day Patient and/or Family Agrees t: Yes Time/GCodes Time In: 1000 Time Out: 1100 Total Billed Treatment Time: 60 Total Billed Treatment 1,GT15m,FA15m,EX20m,WC10 G Codes Necessary: TAPAN Barton PLAYGROUND AIDE Dec 12, 2018 11:07
[2018-12-12] MEDS: TROLAMINE (ASPERCREME) 10% CR 90 GM TUBE TOP SCH ×2 (11:25→21:27)
[2018-12-12] MEDS: ENOXAPARIN 40 MG/0.4 ML (LOVENOX) SYR SC SCH ×2 (11:25→21:24)
--- NOTE | 2018-12-12 12:00 | NUR ---
FAMILY AND CAT VISITED. GOOD SPIRITS. NOTABLE IMPROVEMENT SINCE THIS NURSE LAST SAW HER 2 DAYS AGO.
--- NOTE | 2018-12-12 12:43 | Occupational Ther Daily Note ---
OT Current Status-Daily Note Subjective Pt. reports pain in her joints but does not report pain level. Nursing gave pt. pain medication. Appearance Pt. in bed asleep. Pt. wakes up and agrees to work with OT. Mental Status/Objective Patient Orientation: Person, Place, Time, Situation Therapy Code Descriptions/Definitions Functional [place] Measure: 0=Not Assessed/NA 4=Minimal Assistance 1=Total Assistance 5=Supervision or Setup 2=Maximal Assistance 6=Modified [place] 3=Moderate Assistance 7=Complete [place] ADL-Treatment Therapy Code Descriptions/Definitions Functional [place] Measure: 0=Not Assessed/NA 4=Minimal Assistance 1=Total Assistance 5=Supervision or Setup 2=Maximal Assistance 6=Modified [place] 3=Moderate Assistance 7=Complete [place] Therapy Quality Codes: 6 Independent with activity with or without an assistive device 5 Patient requires set up or clean up by helper. Patient completes activity by themselves 4 Supervision or touching assist (CGA). [place] provide cues , steadying assist 3 The helper provides less than half the effort to complete the activity 2 The helper provides more than half the effort to complete the activity 1 Dependent. The helper does all the effort to complete an activity 7 Patient refused to complete or attempt activity 9 The patient did not perform the activity before the current illness or injury 88 Not attempted due to Medical conditions or safety concerns Grooming (FIM): 5 (Set up in wheelchair to brush hair and teeth at sink.) Oral Hygiene (QC): 5 Bathing (FIM): 5 (SBA in shower to wash all parts.) Shower/Bathe Self (QC): 4 Upper Body (FIM): 5 Upper Body Dressing (QC): 4 Lower Body Dressing (FIM): 3 (Pt. able to don brief and pants today with AE, but had difficulty with socks and shoes. OT applied elastic shoe laces to shoes and provided dycem for non slip surface for pt. to bring leg up to. This is difficult for pt. due to difficulty using left hand.) Lower Body Dressing (QC): 3 On/Off Footwear (QC): 3 Toileting (FIM): 4 (CGA in stance to pull pants up.) Toileting Hygiene (QC): 4 Transfers (B, C, W/C) (FIM): 4 Toilet/Commode Transfer (FIM): 4 Toilet Transfer (QC): 4 Shower Transfer(FIM): 4 Other Treatment After ADLs, pt. came to therapy gym. Tolerated e-stim to left hand for finger flexion. Tolerated 8 niraj-amps approximately 10 minutes. Worked on AROM to left hand with good facilitation of finger flexion. Went to dining room and stayed up in wheelchair to wait for PT. Education OT Patient Education: Correct positioning, Modified ADL techniques, Progress toward Goal/Update tx plan, Purpose of tx/functional activities, Reviewed precautions, Rehab process, Transfer techniques, Use of adapted equipment Teaching Recipient: Patient Teaching Methods: Demonstration, Discussion Response to Teaching: Verbalize Understanding, Return Demonstration OT Short Term Goals Short Term Goals Time Frame: Dec 11, 2018 Upper Body Dressing(FIM): 3 Lower Body Dressing(FIM): 3 Toileting(FIM): 3 Toilet/Commode Transfer(FIM): 3 Additional Short Term Goals: 1-Demonstrate ADL Tasks, 2-Verbalize Understanding , 3-ImproveStrength/Angelita 1=Demonstrate adherence to instructed precautions during ADL tasks. 2=Patient will verbalize/demonstrate understanding of assistive devices/ modifications for ADL. 3=Patient will improve strength/tolerance for activity to enable patient to perform ADL's. OT On Site Manager Goals Care Home Goals Time Frame: Dec 28, 2018 Eating (FIM): 6 Eating (QC): 6 Groomin Oral Hygiene (QC): 6 Bathing(FIM): 4 Shower/Bathe Self (QC): 4 Upper Body Dressing(FIM): 5 Upper Body Dressing (QC): 5 Lower Body Dressing(FIM): 5 Lower Body Dressing (QC): 5 On/Off Footwear (QC): 5 Toileting(FIM): 5 Toileting Hygiene (QC): 5 Toilet/Commode Transfer(FIM): 5 Toilet/Commode Transfer (QC): 5 Shower Transfer(FIM): 5 Additional Goals: 1-Demonstrate ADL Tasks, 2-Verbalize Understanding, 3- ImproveStrength/Angelita 1=Demonstrate adherence to instructed precautions during ADL tasks. 2=Patient will verbalize/demonstrate understanding of assistive devices/ modifications for ADL. 3=Patient will improve strength/tolerance for activity to enable patient to perform ADL's. OT Education/Plan Problem List/Assessment Assessment: Decreased Activ Tolerance, Decreased UE Strength, Impaired I ADL's , Impaired Self-Care Skills, Restricted Funct UE ROM Discharge Recommendations Plan/Recommendations: Continue POC Therapy D/C Recommendations: Home w/ Family Support, Occupational Therapy Home Care, Scheduled Assistance Treatment Plan/Plan of Care Treatment,Training & Education: Yes Patient would benefit from OT for education, treatment and training to promote independence in ADL's, mobility, safety and/or upper extremity function for ADL' s. Plan of Care: ADL Retraining, Functional Mobility, Group Exercise/Act as Ind, UE Funct Exercise/Act, UE Neuromus Re-Ed/Coord Treatment Duration: Dec 28, 2018 Frequency: At least 5 of 7 days/Wk (IRF) Estimated Hrs Per Day: 1.5 hours per day Agreement: Yes Rehab Potential: Good Time/GCodes Start Time: 08:20 Stop Time: 10:00 Total Time Billed (hr/min): 100 Billed Treatment Time 1, ADL x 75minutes, NM x 25minutes CHELI LOPEZ OT Dec 12, 2018 12:43
--- NOTE | 2018-12-12 14:17 | Therapy Group Daily Note ---
Therapy Daily Group Note Patient Education Topic Other List Below (risks of being sedentary, benefits of exercise at all levels) Exercises LE Seated Exercise, UE Exercise Session Ratio (pt:therapist): 3:1 Goal of Session: UE/LE Strengthing, Other (list) (understanding benefits of exercise as well as risks of being sedentary) Goal Met for this Session: Yes Pt Benefit of Group: Contributions to Others, Increased Functional Strength, Recognition of Peers, Socialization Other/Notes Pt. participated in group PT session this date. Pt. came and went via w/c. Pts. introduced themselves and shared their "bucket list" items fulfilled and those still on the list. Pts. were given written illustrated exercise cards and each demonstrated 2 exercises to the rest of the group, U&L extremity seated exercises. Pts then participated in establishing 5 words from 5 different categories for a memory exercise. Pts. will be challenged to remember these items on Monday . Strategies for memory were discussed and a fun pnuemonic was established. "A dog named Meaghan ate blue hot dogs in [place]." (dog ,meaghan, hotdogs,blue, [place]. Pt. returned to room via w/c and required min assist to get to recliner. Call ibrahim at hand Start Time: 13:00 Stop Time: 13:45 Total Billed Treatment Time: 45 Total Billed Treatment 1,GRP TAPAN HANSEN RADIATION PHYSICIST Dec 12, 2018 14:17
--- NOTE | 2018-12-12 15:15 | NUR ---
CASE THERAPIST met with patient to review team conference summary. Patient has progressed over the last week; however, continues to require standby assistance for bed mobility, sit to stand positioning and ambulation. Patient is able to ambulate 20 feet with a platform walker, able to wipe self; however, continues to have challenges pulling up pants due to lack of return function in left upper extremity. OT has provided adaptive equipment for patient to utilize; however, due to patient's arthritis, this has been challenging. As patient continues to make progress and tolerate duration of therapy, team has recommended patient be reevaluated at next team conference on 319. Patient is agreeable to this.
[2018-12-12 18:00] VITALS: BP 155/69
[2018-12-12] MEDS: ATORVASTATIN 20 MG (LIPITOR) TABLET PO SCH (21:26)
[2018-12-13] MEDS: LEVOTHYROXINE 50 MCG (LEVOTHROID) TAB PO SCH (06:08)
[2018-12-13] MEDS: inSUlin ASPART (NovoLOG) 1 UNIT/0.01 ML (CHARGE PER UNIT) SC SCH ×4 (06:13→21:10)
[2018-12-13] MEDS: HYDROcodone/APAP 5 MG/325 MG (LORTAB) TAB PO PRN (06:21)
[2018-12-13 06:39] VITALS: BP 137/55
[2018-12-13 08:13] VITALS: BP 132/84
[2018-12-13] MEDS: TRIAMTERENE/HCTZ 75-50 (MAXZIDE,DYAZIDE) TABLET PO SCH (08:23)
[2018-12-13] MEDS: ENOXAPARIN 40 MG/0.4 ML (LOVENOX) SYR SC SCH ×2 (08:23→21:10)
[2018-12-13] MEDS: DOCUSATE SODIUM 100 MG (COLACE) CAP PO SCH ×2 (08:23→08:25)
[2018-12-13] MEDS: PANTOPRAZOLE 20 MG TABLET (PROTONIX) PO SCH (08:23)
[2018-12-13] MEDS: ASPIRIN E.C. 81 MG (ECOTRIN) TAB PO SCH (08:24)
[2018-12-13] MEDS: CELECOXIB 100 MG (CeleBREX) CAP PO SCH ×2 (08:24→21:09)
[2018-12-13] MEDS: amLODIPine 10 MG (NORVASC) TAB PO SCH (08:24)
[2018-12-13] MEDS: PIOGLITAZONE 30MG (ACTOS) TAB PO SCH ×2 (08:24→21:09)
[2018-12-13] MEDS: TROLAMINE (ASPERCREME) 10% CR 90 GM TUBE TOP SCH ×2 (08:25→21:12)
--- NOTE | 2018-12-13 09:15 | PM&R Progress Note ---
Subjective HPI/CC On Admission Date Seen by Provider: Dec 13, 2018 Time Seen by Provider: 09:15 Chief complaint: Stroke with left sided weakness and dysphasia. HPI: This is a 68yoWF who moved to [place] in 2011 but remained a patient of TERESA Monroe doctor who presented with left sided weakness diagnosed with a stroke (out of tPA window of candidacy) and has been actively pursuing rehab since that time. At this current time she is still have dysphasia and difficulty speaking but her thought process is intact and she will need intensive therapy for the left sided weakness. Curry catheter has been maintained and that will be discontinued. Bowels are moving she reports after meds were given. I reviewed all of her home medication that included Celebrex and will maintain on Aspirin and low dose Statin therapy following a stroke per protocol. Pt is agreeable for inpatient rehab and intensive therapy to regain function following a devastating stroke with left sided weakness. She lives at home alone. 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 Pt does have chronic pain, fibromyalgia, and osteoarthritis that she struggles with on an ongoing basis. Subjective/Events-last exam Patient participating in intensive therapy in the left hand arm and left leg are really responding and having more movement Denies any pain Had a nonspecific fainting sensation last night for one hour and didn't feel so good afterwards but nothing very specific and no reason for alarm since vitals remained stable Doing very well and motivated Uplifted attitude Feeling electrical shocks in the left foot and leg Review of Systems General: Fatigue Neurological: Weakness, Numbness, Incoordination Objective Exam Vital Signs Vital Signs Date Time Temp Pulse Resp B/P (MAP) Pulse Ox O2 Delivery O2 Flow Rate FiO2 12/13/18 09:00 Room Air 12/13/18 08:13 98.0 71 16 132/84 (100) 94 12/13/18 03:25 25.00 Capillary Refill : General Appearance: No Apparent Distress, WD/WN, Chronically ill, Obese HEENT: PERRL/EOMI, Normal ENT Inspection, Pharynx Normal, Moist Mucous Membranes Neck: Full Range of Motion, Normal Inspection, Non Tender, Supple Respiratory: Chest Non Tender, Lungs Clear, Normal Breath Sounds, No Accessory Muscle Use, No Respiratory Distress Cardiovascular: Regular Rate, Rhythm, No Edema, No Gallop, No JVD, No Murmur Gastrointestinal: Normal Bowel Sounds, No Organomegaly, No Pulsatile Mass, Non Tender, Soft Back: Normal Inspection, No CVA Tenderness, No Vertebral Tenderness Extremity: Normal Capillary Refill, Normal Inspection, Normal Range of Motion ( except left upper ad lower extremity weakness), Non Tender, No Calf Tenderness, No Pedal Edema Neurologic/Psychiatric: Alert, Oriented x3, Normal Mood/Affect, Facial Droop ( left), Motor Weakness (left sided weakness, left facial droop, thickened speech but today, 12/10/18 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 Assessment/Plan Assessment and Plan Assess & Plan/Chief Complaint Assessment: s/p right STAFF APPRAISER stroke with left sided weakness HTN HTG HLP Hypothyroidism STEPH on CPAP Hypokalemia chronic and allergic to supplement DM OOC DVT PPx with Lovenox [place] weakness sensation last night 12/12/18 but no source identified Plan: Intensive PT/OT/Speech therapies Monitor bowel function Fall risk management Actos home med restarted Continue statin and therapies (1) Acute right STAFF APPRAISER stroke (2) DVT prophylaxis (3) Hyperglyceridemia (4) Hypokalemia (5) Weakness of left side of body (6) Difficulty speaking (7) Dysphagia (8) STEPH on CPAP (9) Non-insulin dependent type 2 diabetes mellitus (10) Essential (primary) hypertension (11) Obesity (12) Hypothyroidism Clinical Quality Measures DVT/VTE Risk/Contraindication: Risk Factor Score Per Nursin RFS Level Per Nursing on Admit: 4+=Very High LOREN MILLER DO Dec 13, 2018 09:15
--- NOTE | 2018-12-13 09:28 | Occupational Ther Daily Note ---
OT Current Status-Daily Note Subjective Pt alert, sitting in recliner. Pt agrees to therapy. No c/o pain at this time. 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 Pt agrees to shower. Therapy Code Descriptions/Definitions Functional [place] Measure: 0=Not Assessed/NA 4=Minimal Assistance 1=Total Assistance 5=Supervision or Setup 2=Maximal Assistance 6=Modified [place] 3=Moderate Assistance 7=Complete [place] Therapy Quality Codes: 6 Independent with activity with or without an assistive device 5 Patient requires set up or clean up by helper. Patient completes activity by themselves 4 Supervision or touching assist (CGA). [place] provide cues , steadying assist 3 The helper provides less than half the effort to complete the activity 2 The helper provides more than half the effort to complete the activity 1 Dependent. The helper does all the effort to complete an activity 7 Patient refused to complete or attempt activity 9 The patient did not perform the activity before the current illness or injury 88 Not attempted due to Medical conditions or safety concerns Grooming (FIM): 6 (Sitting at sink, pt able to complete by self.) Oral Hygiene (QC): 6 Bathing (FIM): 4 (Using grabbar, hand held shower, long handle sponge and shower bench pt able to complete bathing with min A. Pt places L UE onto grabbar to cleanse under L arm. CGA standing in shower, using L hand to grasp and stabilize with grabbar, while pt cleansed crease under stomach. Assist to cleanse buttocks.) Bathing Location: L Arm, R Arm, L Upper Leg, R Upper Leg, L Lower Leg ( including foot), R Lower Leg (including foot), Chest, Abdomen, Perineal Area Shower/Bathe Self (QC): 3 Upper Body (FIM): 4 (Min A to thread over L elbow. Pt able to complete all other parts of dressing.) Upper Body Dressing (QC): 3 Lower Body Dressing (FIM): 2 (Pt able to doff lower body clothing with AE. AE to thread LE's into pant legs, assist to hike over L hip. Assist to don socks/ shoes.) Lower Body Dressing (QC): 2 On/Off Footwear (QC): 2 Toileting (FIM): 4 (CGA in standing to manipulate clothing. Cleansed self on toilet.) Toileting Hygiene (QC): 4 Toilet/Commode Transfer (FIM): 4 (CGA using grabbar and w/c.) Toilet Transfer (QC): 4 Shower Transfer(FIM): 4 (CGA using shower bench, grabbar and w/c.) Other Treatment Pt propelled w/c to therapy gym using LE's. Tolerated 8 niraj-amps, AAROM with e-stim for L digits/wrist extension. Worked on AROM to left hand with good facilitation of finger/wrist extension. After therapy, pt sitting in w/c in room with call light/phone in reach. All needs met in room. OT Short Term Goals Short Term Goals Time Frame: Dec 11, 2018 Upper Body Dressing(FIM): 3 Lower Body Dressing(FIM): 3 Toileting(FIM): 3 Toilet/Commode Transfer(FIM): 3 Additional Short Term Goals: 1-Demonstrate ADL Tasks, 2-Verbalize Understanding , 3-ImproveStrength/Angelita 1=Demonstrate adherence to instructed precautions during ADL tasks. 2=Patient will verbalize/demonstrate understanding of assistive devices/ modifications for ADL. 3=Patient will improve strength/tolerance for activity to enable patient to perform ADL's. OT Group Home Goals Policy Change Clerks Supervisor Goals Time Frame: Dec 28, 2018 Eating (FIM): 6 Eating (QC): 6 Groomin Oral Hygiene (QC): 6 Bathing(FIM): 4 Shower/Bathe Self (QC): 4 Upper Body Dressing(FIM): 5 Upper Body Dressing (QC): 5 Lower Body Dressing(FIM): 5 Lower Body Dressing (QC): 5 On/Off Footwear (QC): 5 Toileting(FIM): 5 Toileting Hygiene (QC): 5 Toilet/Commode Transfer(FIM): 5 Toilet/Commode Transfer (QC): 5 Shower Transfer(FIM): 5 Additional Goals: 1-Demonstrate ADL Tasks, 2-Verbalize Understanding, 3- ImproveStrength/Agnelita 1=Demonstrate adherence to instructed precautions during ADL tasks. 2=Patient will verbalize/demonstrate understanding of assistive devices/ modifications for ADL. 3=Patient will improve strength/tolerance for activity to enable patient to perform ADL's. OT Education/Plan Discharge Recommendations Plan/Recommendations: Continue POC Treatment Plan/Plan of Care Patient would benefit from OT for education, treatment and training to promote independence in ADL's, mobility, safety and/or upper extremity function for ADL' s. Plan of Care: ADL Retraining, Functional Mobility, Group Exercise/Act as Ind, UE Funct Exercise/Act, UE Neuromus Re-Ed/Coord Treatment Duration: Dec 28, 2018 Frequency: At least 5 of 7 days/Wk (IRF) Estimated Hrs Per Day: 1.5 hours per day Agreement: Yes Rehab Potential: Good Time/GCodes Start Time: 08:30 Stop Time: 09:45 Total Time Billed (hr/min): 75 Billed Treatment Time 1 visit-ADL 4 (60 min) NM 1 (15 min) MADHAVI MENA Dec 13, 2018 09:28
--- NOTE | 2018-12-13 10:50 | NUR ---
Pastoral care visit.
--- NOTE | 2018-12-13 12:21 | Physical Therapy Daily Note ---
PT Daily Note-Current Subjective Pt sitting in W/C upon arrival. Pt agrees to PT. Pain Numeric Pain Scale: 5-Moderate Pain Location: Upper Location Body Site: Back Pain Description: Ache Mental Status Patient Orientation: Person, Place, Time, Situation Transfers Therapy Code Descriptions/Definitions Functional [place] Measure: 0=Not Assessed/NA 4=Minimal Assistance 1=Total Assistance 5=Supervision or Setup 2=Maximal Assistance 6=Modified [place] 3=Moderate Assistance 7=Complete [place] Therapy Quality Codes: 6 Independent with activity with or without an assistive device 5 Patient requires set up or clean up by helper. Patient completes activity by themselves 4 Supervision or touching assist (CGA). [place] provide cues , steadying assist 3 The helper provides less than half the effort to complete the activity 2 The helper provides more than half the effort to complete the activity 1 Dependent. The helper does all the effort to complete an activity 7 Patient refused to complete or attempt activity 9 The patient did not perform the activity before the current illness or injury 88 Not attempted due to Medical conditions or safety concerns Scootin Rollin Supine to/from Sit: 4 Sit to/from Stand: 5 Sit to Lying (QC): 4 Sit to Stand (QC): 5 Weight Bearing Right Lower Extremity: Right Full Weight Bearing Left Lower Extremity: Left Full Weight Bearing Gait Training Does the Patient Walk?: Yes Distance (FIM): 4=702-10 ft Distance: 50', 50' Walk 10 feet (QC): 4 Walk 50 ft with 2 Turns(QC): 4 Gait Level of Assist: 4 Gait Persons Needed: 1 Gait Assistive Device: Walker Platform Pt walks with slow amadeo on Platform Walker, limited by R knee buckling. Wheelchair Training Does the Pt Use a Wheelchair?: Yes Wheelchair Distance: 3=150 ft Distance: 175' Wheelchair Level of Assist: 5 Wheel 50 ft with 2 turns (QC): 5 Wheel 150 ft (QC): 5 Type of Wheelchair: Manual Exercises Supine Ex: Ankle pumps, Quad Set, Glut sets, Heel Slides, Straight leg raise, Hip abd/add Supine Reps: 15 Treatments Pt propels self to Therapy Gym. Pt transfers from W/C to EOM then Supine on mat. Pt completes Supine EX with occasional rest breaks as needed. Pt transfers to EOM, rests due to dizziness. Pt transfers to standing and ambulates in hallway using Platform Walker. Pt rests then ambulates again. Pt returns to room in W/C propelled by TILT TRAY DRIVER. Pt transfers to recliner using Robby Walker at SPT. Pt resting at end of tx with all needs met including MHP as requested. Assessment Current Status: Good Progress Pt has improved with safety and mobility during transfers and ambulation. PT Short Term Goals Short Term Goals Time Frame: Dec 11, 2018 Gait (FIM): 1 Gait Distance Comment: 10' Gait Level of Assist: 3 Gait Assistive Device: Walker Robby Wheelchair Distance: 150' PT Penitentiary Goals Punch Box Tender Goals PT Punch Box Tender Goals Time Frame: Dec 25, 2018 Transfers (B,C,W/C) (FIM): 4 Sit to Lying (QC): 3 Lying-Sitting on Side/Bed(QC): 3 Sit to Stand (QC): 3 Rollin Roll Left to Right (QC): 3 Chair/Arg-tq-Ogedv Xfer(QC): 3 Car Transfer (QC): 3 Gait (FIM): 2 Distance: 50' Walk 10 feet (QC): 3 Walk 10ft-Uneven Surface(QC): 3 Walk 50ft with 2 Turns (QC): 3 Walk 150 ft (QC): 3 Gait Level of Assist: 4 Gait Assistive Device: Walker Robby Stairs (FIM): 1 # of Steps: 1 1 Step (curb) (QC): 3 Stairs Level Of Assist: 4 PT Plan Problem List Problem List: Activity Tolerance, Functional Strength, Gait, Transfer Treatment/Plan Treatment Plan: Continue Plan of Care Treatment Plan: Bed Mobility, Concurrent Therapy, Education, Functional Activity Angelita, Functional Strength, Group Therapy, Gait, Safety, Therapeutic Exercise, Transfers Treatment Duration: Dec 25, 2018 Frequency: At least 5 of 7 days/Wk (IRF) Estimated Hrs Per Day: 1.5 hours per day Patient and/or Family Agrees t: Yes Safety Risks/Education Patient Education: Gait Training, Transfer Techniques, Correct Positioning, Safety Issues Teaching Recipient: Patient Teaching Methods: Discussion Response to Teaching: Verbalize Understanding Time/GCodes Time In: 1000 Time Out: 1100 Total Billed Treatment Time: 60 Total Billed Treatment 1, GT (20m), FA (15m) & EX x2 (25m) G Codes Necessary: No MONY SLOAN TILT TRAY DRIVER Dec 13, 2018 12:21
[2018-12-13] MEDS: ACETAMINOPHEN 500 MG TAB (TYLENOL) PO PRN ×2 (12:51→21:10)
--- NOTE | 2018-12-13 13:57 | Physical Therapy Daily Note ---
PT Daily Note-Current Subjective Patient in wheelchair pre tx, agrees to PT, has 7/10 pain "all over". Appearance Patient in recliner post tx with nurse call, phone, tray, all needs met. Mental Status Patient Orientation: Person, Place, Situation Transfers Therapy Code Descriptions/Definitions Functional [place] Measure: 0=Not Assessed/NA 4=Minimal Assistance 1=Total Assistance 5=Supervision or Setup 2=Maximal Assistance 6=Modified [place] 3=Moderate Assistance 7=Complete [place] Therapy Quality Codes: 6 Independent with activity with or without an assistive device 5 Patient requires set up or clean up by helper. Patient completes activity by themselves 4 Supervision or touching assist (CGA). [place] provide cues , steadying assist 3 The helper provides less than half the effort to complete the activity 2 The helper provides more than half the effort to complete the activity 1 Dependent. The helper does all the effort to complete an activity 7 Patient refused to complete or attempt activity 9 The patient did not perform the activity before the current illness or injury 88 Not attempted due to Medical conditions or safety concerns Transfers (B, C, W/C) (FIM): 5 Sit to/from Stand: 5 Bed to/from Chair: 5 Weight Bearing Right Lower Extremity: Right Full Weight Bearing Left Lower Extremity: Left Full Weight Bearing Wheelchair Training Does the Pt Use a Wheelchair?: Yes Wheelchair (FIM): 5 Distance: 150'x2 Wheelchair Level of Assist: 5 Type of Wheelchair: Manual Exercises NuStep Minutes: 15 NuStep Workload: 5 Treatments transfers, wheelchair mobility, functional strengthening Assessment Current Status: Fair Progress improving strength and transfers PT Short Term Goals Short Term Goals Time Frame: Dec 11, 2018 Gait (FIM): 1 Gait Distance Comment: 10' Gait Level of Assist: 3 Gait Assistive Device: Walker Robby Wheelchair Distance: 175' PT Halfway Goals Psychological Anthropologist Goals PT Halfway Goals Time Frame: Dec 25, 2018 Transfers (B,C,W/C) (FIM): 4 Sit to Lying (QC): 3 Lying-Sitting on Side/Bed(QC): 3 Sit to Stand (QC): 3 Rollin Roll Left to Right (QC): 3 Chair/Eri-tf-Wwpdu Xfer(QC): 3 Car Transfer (QC): 3 Gait (FIM): 2 Distance: 50' Walk 10 feet (QC): 3 Walk 10ft-Uneven Surface(QC): 3 Walk 50ft with 2 Turns (QC): 3 Walk 150 ft (QC): 3 Gait Level of Assist: 4 Gait Assistive Device: Walker Robby Stairs (FIM): 1 # of Steps: 1 1 Step (curb) (QC): 3 Stairs Level Of Assist: 4 PT Plan Problem List Problem List: Activity Tolerance, Functional Strength, Safety, Balance, Gait, Transfer, Bed Mobility, ROM Treatment/Plan Treatment Plan: Continue Plan of Care Treatment Plan: Bed Mobility, Concurrent Therapy, Education, Functional Activity Angelita, Functional Strength, Group Therapy, Gait, Safety, Therapeutic Exercise, Transfers Treatment Duration: Dec 25, 2018 Frequency: At least 5 of 7 days/Wk (IRF) Estimated Hrs Per Day: 1.5 hours per day Patient and/or Family Agrees t: Yes Safety Risks/Education Patient Education: Transfer Techniques, Correct Positioning, W/C Management, Safety Issues Teaching Recipient: Patient Teaching Methods: Demonstration, Discussion Response to Teaching: Reinforcement Needed Time/GCodes Time In: 1300 Time Out: 1330 Total Billed Treatment Time: 30 Total Billed Treatment 1 visit [facility] 15' EX 15' MEGHAN DYER PT Dec 13, 2018 13:57
--- NOTE | 2018-12-13 14:10 | NUR ---
PT EATING WELL, 93% MEALS AND WEIGHT STABLE. INTAKE MEETING NEEDS AT THIS TIME. CONT SAME.
--- NOTE | 2018-12-13 16:09 | Speech Therapy Daily Note ---
Speech Daily Progress Note Subjective Date Seen by Provider: Dec 13, 2018 Time Seen by Provider: 00:15 Patient states she is really tired after the OT and PT workout today. Objective Patient consumed her third regular meal today without incident of choking. She is utilizing compensatory strategies as trained at 90% with minimal verbal cues. Assessment Assessment Current Status: Good Progress Treatment Plan Continue Plan of Care Communication Comprehension: 7 Expression: 7 Social Cognition Social Interaction: 7 Problem Solvin Memory: 7 Speech Short Term Goals Short Term Goals Short Term Goals 1) Patient will utilize compensatory strategies as trained for safe oral intake of the least restrictive diet with 90% or greater. 2) Patient will demonstrate safe oral intake of the least restrictive diet level with 90% or greater. Speech Cartographic Aide Goals Cartographic Aide Goals Patient will maintain adequate nutrition/hydration via safe effective swallow function. Speech-Plan Patient/Family Goals Patient/Family Goals: Patient plans on returning home with family support post rehab. Treatment Plan Speech Therapy Treatment Plan: Continue Plan of Care atient is progressing as a result of skilled ST services. Treatment Duration: Dec 21, 2018 Frequency: 4 times per week Estimated Hrs Per Day: .5 hour per day Rehab Potential: Good Barriers to Learning: New onset CVA Pt/Family Agrees to Plan: Yes Safety Risks/Education Teaching Recipient: Patient Teaching Methods: Demonstration, Discussion Response to Teaching: Verbalize Understanding, Return Demonstration Education Topics Provided: Safety of oral intake Time Speech Therapy Time In: 15:00 Speech Therapy Time Out: 15:30 Total Billed Time: 30 Billed Treatment Time 1, MONTY Dean Dec 13, 2018 16:09
[2018-12-13 17:59] VITALS: BP 159/73
[2018-12-13] MEDS: ATORVASTATIN 20 MG (LIPITOR) TABLET PO SCH (21:09)
--- NOTE | 2018-12-13 23:00 | NUR ---
Assumed care of patient.
[2018-12-14] MEDS: LEVOTHYROXINE 50 MCG (LEVOTHROID) TAB PO SCH (05:50)
[2018-12-14] MEDS: HYDROcodone/APAP 5 MG/325 MG (LORTAB) TAB PO PRN ×2 (05:50→16:17)
[2018-12-14] MEDS: inSUlin ASPART (NovoLOG) 1 UNIT/0.01 ML (CHARGE PER UNIT) SC SCH ×4 (05:53→21:01)
[2018-12-14 06:22] VITALS: BP 138/69
[2018-12-14] MEDS: CELECOXIB 100 MG (CeleBREX) CAP PO SCH ×2 (08:52→20:30)
[2018-12-14] MEDS: ASPIRIN E.C. 81 MG (ECOTRIN) TAB PO SCH (08:52)
[2018-12-14] MEDS: TRIAMTERENE/HCTZ 75-50 (MAXZIDE,DYAZIDE) TABLET PO SCH (08:53)
[2018-12-14] MEDS: amLODIPine 10 MG (NORVASC) TAB PO SCH (08:53)
[2018-12-14] MEDS: PANTOPRAZOLE 20 MG TABLET (PROTONIX) PO SCH (08:53)
[2018-12-14] MEDS: PIOGLITAZONE 30MG (ACTOS) TAB PO SCH ×2 (08:54→20:31)
[2018-12-14] MEDS: DOCUSATE SODIUM 100 MG (COLACE) CAP PO SCH ×2 (08:55→20:31)
[2018-12-14] MEDS: ENOXAPARIN 40 MG/0.4 ML (LOVENOX) SYR SC SCH ×2 (08:56→20:31)
--- NOTE | 2018-12-14 08:56 | Physical Therapy Daily Note ---
PT Daily Note-Current Subjective Patient in recliner pre tx, agrees to PT, has 7/10 pain "all over". Appearance Patient in WC post tx with nurse call, phone, tray, all needs met. Patient has OT right after PT. Mental Status Patient Orientation: Person, Place, Situation Transfers Therapy Code Descriptions/Definitions Functional [place] Measure: 0=Not Assessed/NA 4=Minimal Assistance 1=Total Assistance 5=Supervision or Setup 2=Maximal Assistance 6=Modified [place] 3=Moderate Assistance 7=Complete [place] Therapy Quality Codes: 6 Independent with activity with or without an assistive device 5 Patient requires set up or clean up by helper. Patient completes activity by themselves 4 Supervision or touching assist (CGA). [place] provide cues , steadying assist 3 The helper provides less than half the effort to complete the activity 2 The helper provides more than half the effort to complete the activity 1 Dependent. The helper does all the effort to complete an activity 7 Patient refused to complete or attempt activity 9 The patient did not perform the activity before the current illness or injury 88 Not attempted due to Medical conditions or safety concerns Transfers (B, C, W/C) (FIM): 5 Sit to/from Stand: 5 Bed to/from Chair: 5 Patient has some difficulty with sit to stand from lower surfaces but can do it , often with multiple attempts. Weight Bearing Right Lower Extremity: Right Full Weight Bearing Left Lower Extremity: Left Full Weight Bearing Gait Training Gait (FIM): 1 Distance: 40', 20'x2 Gait Level of Assist: 4 Gait Persons Needed: 1 Gait Assistive Device: Walker Robby Patient tends to ambulate with hemiwalker in front and not to the side, can advance her left leg without assist, no knee buckling, good balance. Fatigues quickly. Wheelchair Training Does the Pt Use a Wheelchair?: Yes Wheelchair (FIM): 5 Distance: 150'x2 Type of Wheelchair: Manual Exercises Standing: Hip Abduction, Marching, Mini squats Standing Reps: 15 LAQ left side with 2# ankle weights for 5 min, sidestepping in parallel bars 8' x4 Treatments transfers, ambulation, functional strengthening, wheelchair mobility Assessment Current Status: Fair Progress improving endurance PT Short Term Goals Short Term Goals Time Frame: Dec 11, 2018 Gait (FIM): 1 Gait Distance Comment: 10' Gait Level of Assist: 3 Gait Assistive Device: Walker Robby Wheelchair Distance: 150'x2 PT Senior Care Goals Senior Care Goals PT Nutrition Services Associate Goals Time Frame: Dec 25, 2018 Transfers (B,C,W/C) (FIM): 4 Sit to Lying (QC): 3 Lying-Sitting on Side/Bed(QC): 3 Sit to Stand (QC): 3 Rollin Roll Left to Right (QC): 3 Chair/Eqz-fu-[place] Xfer(QC): 3 Car Transfer (QC): 3 Gait (FIM): 2 Distance: 50' Walk 10 feet (QC): 3 Walk 10ft-Uneven Surface(QC): 3 Walk 50ft with 2 Turns (QC): 3 Walk 150 ft (QC): 3 Gait Level of Assist: 4 Gait Assistive Device: Walker Robby Stairs (FIM): 1 # of Steps: 1 1 Step (curb) (QC): 3 Stairs Level Of Assist: 4 PT Plan Problem List Problem List: Activity Tolerance, Functional Strength, Safety, Balance, Gait, Transfer, Bed Mobility, ROM Treatment/Plan Treatment Plan: Continue Plan of Care Treatment Plan: Bed Mobility, Concurrent Therapy, Education, Functional Activity Angelita, Functional Strength, Group Therapy, Gait, Safety, Therapeutic Exercise, Transfers Treatment Duration: Dec 25, 2018 Frequency: At least 5 of 7 days/Wk (IRF) Estimated Hrs Per Day: 1.5 hours per day Patient and/or Family Agrees t: Yes Safety Risks/Education Patient Education: Gait Training, Transfer Techniques, Correct Positioning, W/ C Management, Safety Issues Teaching Recipient: Patient Teaching Methods: Demonstration, Discussion Response to Teaching: Reinforcement Needed Time/GCodes Time In: 800 Time Out: 900 Total Billed Treatment Time: 60 Total Billed Treatment 1 visit [facility] 25' [facility] 15' EX 20' MEGHAN DYER PT Dec 14, 2018 08:56
--- NOTE | 2018-12-14 09:14 | PM&R Progress Note ---
Subjective HPI/CC On Admission Date Seen by Provider: Dec 14, 2018 Time Seen by Provider: 09:30 Chief complaint: Stroke with left sided weakness and dysphasia. HPI: This is a 68yoWF who moved to [place] in 2011 but remained a patient of [facility] doctor who presented with left sided weakness diagnosed with a stroke (out of tPA window of candidacy) and has been actively pursuing rehab since that time. At this current time she is still have dysphasia and difficulty speaking but her thought process is intact and she will need intensive therapy for the left sided weakness. Curry catheter has been maintained and that will be discontinued. Bowels are moving she reports after meds were given. I reviewed all of her home medication that included Celebrex and will maintain on Aspirin and low dose Statin therapy following a stroke per protocol. Pt is agreeable for inpatient rehab and intensive therapy to regain function following a devastating stroke with left sided weakness. She lives at home alone. 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 graduate in 1985 and got her masters in 2003. Pt does have chronic pain, fibromyalgia, and osteoarthritis that she struggles with on an ongoing basis. Subjective/Events-last exam Patient participating in intensive therapy in the left hand arm and left leg are continuing to improve and the patient and therapists are thrilled with her progress Denies any pain Needs new CPAP/biPAP machine and SW has been notified to facilitate getting this provided Doing very well and motivated Uplifted attitude Accuchecks are stable and Actos changed to 15mg Po BID Daughter in [place] have offered her to come and move closer to her Review of Systems General: Fatigue Neurological: Weakness, Numbness, Incoordination Objective Exam Vital Signs Vital Signs Date Time Temp Pulse Resp B/P (MAP) Pulse Ox O2 Delivery O2 Flow Rate FiO2 12/14/18 06:22 96.7 75 18 138/69 (92) 91 Room Air 12/14/18 04:23 25.00 Capillary Refill : General Appearance: No Apparent Distress, WD/WN, Chronically ill, Obese HEENT: PERRL/EOMI, Normal ENT Inspection, Pharynx Normal, Moist Mucous Membranes Neck: Full Range of Motion, Normal Inspection, Non Tender, Supple Respiratory: Chest Non Tender, Lungs Clear, Normal Breath Sounds, No Accessory Muscle Use, No Respiratory Distress Cardiovascular: Regular Rate, Rhythm, No Edema, No Gallop, No JVD, No Murmur Gastrointestinal: Normal Bowel Sounds, No Organomegaly, No Pulsatile Mass, Non Tender, Soft Back: Normal Inspection, No CVA Tenderness, No Vertebral Tenderness Extremity: Normal Capillary Refill, Normal Inspection, Normal Range of Motion ( except left upper ad lower extremity weakness), Non Tender, No Calf Tenderness, No Pedal Edema Neurologic/Psychiatric: Alert, Oriented x3, Normal Mood/Affect, Facial Droop ( left), Motor Weakness (left sided weakness, left facial droop, thickened speech but today, 12/10/18 left hand orange grower improved and 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 on CPAP Hypokalemia chronic and allergic to supplement DM OOC DVT PPx with Lovenox [place] weakness sensation last night 12/12/18 but no source identified no longer occurring Plan: Intensive PT/OT/Speech therapies Monitor bowel function Fall risk management Actos home med restarted but lower dose 15mg PO BID Continue statin and therapies (1) Acute right DRILL PRESSER stroke (2) DVT prophylaxis (3) Hyperglyceridemia (4) Hypokalemia (5) Weakness of left side of body (6) Difficulty speaking (7) Dysphagia (8) 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
--- NOTE | 2018-12-14 09:21 | Occupational Ther Daily Note ---
OT Current Status-Daily Note Subjective Pt alert, sitting in w/c. Pt agrees to therapy. Pt states that nrsg was bringing pain medication. Mental Status/Objective Patient Orientation: Person, Place, Time, Situation Therapy Code Descriptions/Definitions Functional [place] Measure: 0=Not Assessed/NA 4=Minimal Assistance 1=Total Assistance 5=Supervision or Setup 2=Maximal Assistance 6=Modified [place] 3=Moderate Assistance 7=Complete [place] ADL-Treatment Therapy Code Descriptions/Definitions Functional [place] Measure: 0=Not Assessed/NA 4=Minimal Assistance 1=Total Assistance 5=Supervision or Setup 2=Maximal Assistance 6=Modified [place] 3=Moderate Assistance 7=Complete [place] Therapy Quality Codes: 6 Independent with activity with or without an assistive device 5 Patient requires set up or clean up by helper. Patient completes activity by themselves 4 Supervision or touching assist (CGA). [place] provide cues , steadying assist 3 The helper provides less than half the effort to complete the activity 2 The helper provides more than half the effort to complete the activity 1 Dependent. The helper does all the effort to complete an activity 7 Patient refused to complete or attempt activity 9 The patient did not perform the activity before the current illness or injury 88 Not attempted due to Medical conditions or safety concerns Grooming (FIM): 6 (Sitting at sink, pt able to complete by self.) Oral Hygiene (QC): 6 Bathing (FIM): 5 (Close SBA while pt uses AE for safety to complete own bathing.) Bathing Location: L Arm, R Arm, L Upper Leg, R Upper Leg, L Lower Leg ( including foot), R Lower Leg (including foot), Chest, Abdomen, Buttocks, Perineal Area Shower/Bathe Self (QC): 4 Upper Body (FIM): 4 (Min A to straighten shirt after pt dons over B UE and head. Doffs by self.) Upper Body Dressing (QC): 3 Lower Body Dressing (FIM): 3 (Pt able to doff clothing with CGA. Able to don over feet and hike over R hip, assist for L hip. Assist to don shoes/socks. Pt attempts though is unable to bend over far enough or cross knees at this time.) Lower Body Dressing (QC): 3 On/Off Footwear (QC): 2 Toileting (FIM): 4 (Assist to hike pants over L hip. Cleanses self sitting on toilet using toilet tongs.) Toileting Hygiene (QC): 3 Transfers (B, C, W/C) (FIM): 5 (Close SBA using w/c.) Toilet/Commode Transfer (FIM): 5 (Using grabbars and w/c, pt able to complete with close SBA.) Toilet Transfer (QC): 4 Shower Transfer(FIM): 4 (CGA using shower bench, grabbars and w/c.) Pt takes increased time due to increased soreness and decreased mobility this date. After therapy, pt sitting in recliner with call light/phone in reach. Nrsg in room. All needs met in room. OT Short Term Goals Short Term Goals Time Frame: Dec 11, 2018 Upper Body Dressing(FIM): 3 Lower Body Dressing(FIM): 3 Toileting(FIM): 3 Toilet/Commode Transfer(FIM): 3 Additional Short Term Goals: 1-Demonstrate ADL Tasks, 2-Verbalize Understanding , 3-ImproveStrength/Angelita 1=Demonstrate adherence to instructed precautions during ADL tasks. 2=Patient will verbalize/demonstrate understanding of assistive devices/ modifications for ADL. 3=Patient will improve strength/tolerance for activity to enable patient to perform ADL's. OT Consumer Sales Representative Goals Consumer Sales Representative Goals Time Frame: Dec 28, 2018 Eating (FIM): 6 Eating (QC): 6 Groomin Oral Hygiene (QC): 6 Bathing(FIM): 4 Shower/Bathe Self (QC): 4 Upper Body Dressing(FIM): 5 Upper Body Dressing (QC): 5 Lower Body Dressing(FIM): 5 Lower Body Dressing (QC): 5 On/Off Footwear (QC): 5 Toileting(FIM): 5 Toileting Hygiene (QC): 5 Toilet/Commode Transfer(FIM): 5 Toilet/Commode Transfer (QC): 5 Shower Transfer(FIM): 5 Additional Goals: 1-Demonstrate ADL Tasks, 2-Verbalize Understanding, 3- ImproveStrength/Angelita 1=Demonstrate adherence to instructed precautions during ADL tasks. 2=Patient will verbalize/demonstrate understanding of assistive devices/ modifications for ADL. 3=Patient will improve strength/tolerance for activity to enable patient to perform ADL's. OT Education/Plan Problem List/Assessment Assessment: Decreased UE Strength, Impaired Coordination, Impaired Self-Care Skills, Restricted Funct UE ROM Discharge Recommendations Plan/Recommendations: Continue POC Treatment Plan/Plan of Care Patient would benefit from OT for education, treatment and training to promote independence in ADL's, mobility, safety and/or upper extremity function for ADL' s. Plan of Care: ADL Retraining, Functional Mobility, Group Exercise/Act as Ind, UE Funct Exercise/Act, UE Neuromus Re-Ed/Coord Treatment Duration: Dec 28, 2018 Frequency: At least 5 of 7 days/Wk (IRF) Estimated Hrs Per Day: 1.5 hours per day Agreement: Yes Rehab Potential: Good Time/GCodes Start Time: 09:00 Stop Time: 10:30 Total Time Billed (hr/min): 90 Billed Treatment Time 1 visit-ADL 6 (90 min) MADHAVI MENA Dec 14, 2018 09:21
[2018-12-14] MEDS: ACETAMINOPHEN 500 MG TAB (TYLENOL) PO PRN (10:13)
[2018-12-14] MEDS: TROLAMINE (ASPERCREME) 10% CR 90 GM TUBE TOP SCH ×2 (10:23→20:57)
--- NOTE | 2018-12-14 13:05 | Pulmonary Consultation ---
History of Present Illness History of Present Illness Date of Consultation 12/14/18 13:00 Time Seen by Provider: 13:00 Date of Admission History of Present Illness 68yo undergoing in patient rehab s/p acute CVA with residual dysphasia, dysphonia, and left sided weakness. 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 She graduated 1985 from [employer] and obtained her masters in 2003. PT does have a hx of STEPH and she is a never smoker. She had been very compliant with CPAP therapy of [id number] until her machine stopped working. Her last PSG was in 2008. I am consulted for STEPH. Allergies and Home Medications Allergies Coded Allergies: cinnamon (Verified Allergy, Severe, 11/29/18) DIFFICULTY BREATHING, ASTHMA ATTACK PER PATIENT MYRTLE Inhibitors (Unverified Allergy, Unknown, 06/16/15) Beta-Blockers (Beta-Adrenergic Bloc (Unverified Allergy, Unknown, 06/16/15) Swzhcyl-Oxd-Dnm Reductase Inhibitor (Unverified Allergy, Unknown, Myalgia , 12/04/18) tolerating atorvastatin 20mg 3.5.19 floxacillin (Unverified Allergy, Unknown, 06/16/15) potassium chloride (Unverified Allergy, Unknown, 06/16/15) Uncoded Allergies: EYE DROPS (Allergy, Unknown, 06/16/15) Home Medications Acetaminophen 500 Mg Tablet, 1,000 MG PO BID, (Reported) TAKES 2 (500MG) TABLETS Amlodipine Besylate 10 Mg Tablet, 10 MG PO DAILY, (Reported) Celecoxib 100 Mg Capsule, 100 MG PO BID, (Reported) Hydrocodone/Acetaminophen 1 Each Tablet, 1 TAB PO Q6H PRN for PAIN-MODERATE, ( Reported) Levothyroxine Sodium 50 Mcg Tablet, 50 MCG PO DAILY, (Reported) Omeprazole 20 Mg Capsule.dr, 20 MG PO DAILY, (Reported) Pioglitazone HCl 30 Mg Tablet, 30 MG PO DAILY, (Reported) Pioglitazone HCl 30 Mg Tablet, 15 MG PO HS, (Reported) TAKES 1/2 (30MG) TABLET Triamterene/Hydrochlorothiazid 1 Each Capsule, 1 CAP PO DAILY, (Reported) Past Fcyxuft-Rvyuac-Gskatm Hx Past Med/Social Hx: Reviewed Nursing Past Med/Soc Hx, Reviewed and Corrections made Patient Social History Alcohol Use: Denies Use Smoking Status: Never a Smoker Recent Foreign Travel: No Contact w/Someone Who Travel: No Recent Infectious Disease Expo: No Recent Hopitalizations: No Immunizations Up To Date Tetanus Booster (TDap): More than 5yrs Date of Pneumonia Vaccine: Oct 02, 2011 Past Medical History Surgeries: Yes (lypoma(toe, thigh, neck), SPHINCTERECTOMY 11/22/18) Appendectomy, Breast, Eye Surgery, Gallbladder, Hysterectomy, Orthopedic Respiratory: Yes Sleep Apnea Currently Using CPAP: Yes Cardiac: Yes High Cholesterol, Hypertension Neurological: No Stroke (11/01/18) Reproductive Disorders: Yes 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 Gastrointestinal: Yes Gastroesophageal Reflux Musculoskeletal: No Arthritis, Fibromyalgia, Chronic Back Pain Endocrine: Yes Hypothyroidsim, Diabetes, Non-Insulin dep Cataract, Glaucoma Cancer: No Psychosocial: No Integumentary: No Blood Disorders: No Family Medical History No Pertinent Family Hx, Hypertension Review of Systems Time Seen by Provider: 13:18 Constitutional: No: Fever, Chills, Sweats, Weakness, Malaise, Other Eyes: No: Pain, Vision change, Conjunctivae inflammation, Eyelid inflammation, Other, Redness ENT: No: Ear pain, Ear discharge, Nose pain, Nose discharge, Nose congestion, Mouth pain, Mouth swelling, Throat pain, Throat swelling, Other Respiratory: Cough, Dry, Shortness of breath, SOB with excertion; No: Wheezing , Hemoptysis, Pleuritic Pain, Sputum Cardiovascular: Paroxysmal Noc. Dyspnea, Lt Headedness Gastrointestinal: No: Nausea, Vomiting, Abdominal Pain, Diarrhea, Constipation , Melena, Hematochezia, Other Neurological: Weakness Sepsis Event Evaluation Height, Weight, BMI Height: 5'6.00" Weight: 308lbs. 0.0oz. 139.336453np; 49.7 BMI Method:Stated Exam Exam Vital Signs Date Time Temp Pulse Resp B/P (MAP) Pulse Ox O2 Delivery O2 Flow Rate FiO2 12/14/18 06:22 96.7 75 18 138/69 (92) 91 Room Air 12/14/18 04:23 6 16 25.00 12/14/18 01:56 65 16 95 25.00 12/14/18 00:18 Room Air 12/13/18 22:57 71 16 96 25.00 12/13/18 21:34 Room Air 12/13/18 17:59 98.8 89 20 159/73 (101) 94 Room Air I & O 12/14/18 07:00 Intake Total 940 ml Balance 940 ml Height & Weight Height: 5'6.00" Weight: 308lbs. 0.0oz. 139.563136hw; 49.7 BMI Method:Stated General Appearance: No Apparent Distress, WD/WN, Chronically ill, Obese HEENT: PERRL/EOMI, Normal ENT Inspection, Pharynx Normal, Moist Mucous Membranes Neck: Full Range of Motion, Normal Inspection, Non Tender, Supple Respiratory: Chest Non Tender, Lungs Clear, Normal Breath Sounds, No Accessory Muscle Use, No Respiratory Distress Cardiovascular: Regular Rate, Rhythm, No Edema, No Gallop, No JVD, No Murmur Extremity: Normal Capillary Refill, Normal Inspection, Normal Range of Motion ( except left upper ad lower extremity weakness), Non Tender, No Calf Tenderness, No Pedal Edema Neurologic/Psychiatric: Alert, Oriented x3, Normal Mood/Affect, Facial Droop ( left), Motor Weakness (left sided weakness, left facial droop, thickened speech but today, 12/10/18 left hand primary health organisation manager improved and moving left foot and speaking clearer) Skin: Normal Color, Warm/Dry Lymphatic: No Adenopathy Assessment/Plan Assessment/Plan STEPH, EDS, CVA, Mallampati, score of 4 - last PSG was in 2008 -Her CPAP of [id number] broke -Last down load - 12/09/2018 -AHI 2.1, CPAP 12, Compliance >4hrs is 90% with 100%device usage -PT needs new CPAP machine set at 12 [id number] -Pt is currently using a hospital CPAP machine Recently dx GERI - KAREN WORTHINGTON DO Dec 14, 2018 13:05
--- NOTE | 2018-12-14 13:25 | Therapy Group Daily Note ---
Therapy Daily Group Note Patient Education Topic Exercises, Other List Below (AE for home use) Exercises UE Exercise Session Ratio (pt:therapist): 4:1 Goal of Session: Education on ARU Expectations, UE/LE Strengthing, Use of Adaptive Equipment Goal Met for this Session: Yes Pt Benefit of Group: Contributions to Others, F/U Use of Strategies @Home, Increased Functional Strength, Recognition of Peers, Socialization Other/Notes Pt transported in w/c to OT group in [facility]. Group consisted of introductions (name, place living, springtime activity), socialization, UE theraband exercises, benefits of exercise and AE for home use. Pt introduced self appropriately and actively listened to peers. Pt able to contribute to discussions about educational topics and give personal strategies. Pt initiated and participated in conversations with peers throughout group. Pt demonstrated ability to complete exercises and use good techniques. Theraband given to pt for use in room. Pt transported with w/c back to room to use bathroom. Pt sitting in recliner after group with call light/phone in reach. All needs met in room. Start Time: 11:30 Stop Time: 12:30 Total Billed Treatment Time: 60 Total Billed Treatment 1-GRP MADHAVI MENA Dec 14, 2018 13:25
--- NOTE | 2018-12-14 14:38 | Speech Therapy Daily Note ---
Speech Daily Progress Note Subjective Date Seen by Provider: Dec 14, 2018 Time Seen by Provider: 00:30 The patient states she is tired today but not as tired as she was yesterday. Objective Patient utilizes compensatory strategies as trained at 80% with minimal verbal cues. Assessment Assessment Current Status: Good Progress Treatment Plan Continue Plan of Care Communication Comprehension: 7 Expression: 7 Social Cognition Social Interaction: 7 Problem Solvin Memory: 7 Speech Short Term Goals Short Term Goals Short Term Goals 1) Patient will utilize compensatory strategies as trained for safe oral intake of the least restrictive diet with 90% or greater. 2) Patient will demonstrate safe oral intake of the least restrictive diet level with 90% or greater. Speech Retirement Goals Retirement Goals Patient will maintain adequate nutrition/hydration via safe effective swallow function. Speech-Plan Patient/Family Goals Patient/Family Goals: Patient plans to return home alone with family support upon rehab discharge. Treatment Plan Speech Therapy Treatment Plan: Continue Plan of Care Patient is progressing well as a result of skilled therapy. Treatment Duration: Dec 21, 2018 Frequency: 4 times per week Estimated Hrs Per Day: .5 hour per day Rehab Potential: Good Barriers to Learning: New onset CVA Pt/Family Agrees to Plan: Yes Safety Risks/Education Teaching Recipient: Patient Teaching Methods: Discussion Response to Teaching: Verbalize Understanding Education Topics Provided: Continued safety of oral intake Time Speech Therapy Time In: 13:15 Speech Therapy Time Out: 13:45 Total Billed Time: 30 Billed Treatment Time 1[address] Dec 14, 2018 14:38
[2018-12-14 18:00] VITALS: BP 149/64
[2018-12-14] MEDS: ATORVASTATIN 20 MG (LIPITOR) TABLET PO SCH (20:30)
[2018-12-15] MEDS: LEVOTHYROXINE 50 MCG (LEVOTHROID) TAB PO SCH (06:05)
[2018-12-15] MEDS: HYDROcodone/APAP 5 MG/325 MG (LORTAB) TAB PO PRN (06:05)
[2018-12-15] MEDS: inSUlin ASPART (NovoLOG) 1 UNIT/0.01 ML (CHARGE PER UNIT) SC SCH ×4 (06:06→21:26)
[2018-12-15 06:14] VITALS: BP 164/72
[2018-12-15] MEDS: DOCUSATE SODIUM 100 MG (COLACE) CAP PO SCH ×2 (07:49→21:27)
[2018-12-15] MEDS: PIOGLITAZONE 30MG (ACTOS) TAB PO SCH ×2 (09:35→21:27)
[2018-12-15] MEDS: CELECOXIB 100 MG (CeleBREX) CAP PO SCH ×2 (09:35→21:31)
[2018-12-15] MEDS: ASPIRIN E.C. 81 MG (ECOTRIN) TAB PO SCH (09:35)
[2018-12-15] MEDS: PANTOPRAZOLE 20 MG TABLET (PROTONIX) PO SCH (09:35)
[2018-12-15] MEDS: TRIAMTERENE/HCTZ 75-50 (MAXZIDE,DYAZIDE) TABLET PO SCH (09:36)
[2018-12-15] MEDS: amLODIPine 10 MG (NORVASC) TAB PO SCH (09:36)
[2018-12-15] MEDS: ENOXAPARIN 40 MG/0.4 ML (LOVENOX) SYR SC SCH ×2 (09:36→21:26)
[2018-12-15] MEDS: TROLAMINE (ASPERCREME) 10% CR 90 GM TUBE TOP SCH ×2 (09:37→21:31)
--- NOTE | 2018-12-15 11:13 | PM&R Progress Note ---
Subjective HPI/CC On Admission Date Seen by Provider: Dec 15, 2018 Time Seen by Provider: 11:15 Chief complaint: Stroke with left sided weakness and dysphasia. HPI: This is a 68yoWF who moved to [place] in 2011 but remained a patient of TERESA Monroe doctor who presented with left sided weakness diagnosed with a stroke (out of tPA window of candidacy) and has been actively pursuing rehab since that time. At this current time she is still have dysphasia and difficulty speaking but her thought process is intact and she will need intensive therapy for the left sided weakness. Curry catheter has been maintained and that will be discontinued. Bowels are moving she reports after meds were given. I reviewed all of her home medication that included Celebrex and will maintain on Aspirin and low dose Statin therapy following a stroke per protocol. Pt is agreeable for inpatient rehab and intensive therapy to regain function following a devastating stroke with left sided weakness. She lives at home alone. 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 Pt does have chronic pain, fibromyalgia, and osteoarthritis that she struggles with on an ongoing basis. Subjective/Events-last exam Patient participating in intensive therapy in the left hand arm and left leg are continuing to improve and the patient and therapists are thrilled with her progress Denies any new pain but does have some electrical shocks at times on her right foot Doing very well and motivated Uplifted attitude since family visited from [place] Accuchecks are stable and Actos changed to 15mg Po BID Accucheck 187 this morning 2 hours after bfast Review of Systems Neurological: Weakness, Numbness, Incoordination Objective Exam Vital Signs Vital Signs Date Time Temp Pulse Resp B/P (MAP) Pulse Ox O2 Delivery O2 Flow Rate FiO2 12/15/18 09:00 Room Air 12/15/18 06:14 62 16 164/72 (102) 97 12/15/18 02:16 25.00 12/14/18 18:00 98.0 Capillary Refill : General Appearance: No Apparent Distress, WD/WN, Chronically ill, Obese HEENT: PERRL/EOMI, Normal ENT Inspection, Pharynx Normal, Moist Mucous Membranes Neck: Full Range of Motion, Normal Inspection, Non Tender, Supple Respiratory: Chest Non Tender, Lungs Clear, Normal Breath Sounds, No Accessory Muscle Use, No Respiratory Distress Cardiovascular: Regular Rate, Rhythm, No Edema, No Gallop, No JVD, No Murmur Gastrointestinal: Normal Bowel Sounds, No Organomegaly, No Pulsatile Mass, Non Tender, Soft Back: Normal Inspection, No CVA Tenderness, No Vertebral Tenderness Extremity: Normal Capillary Refill, Normal Inspection, Normal Range of Motion ( except left upper ad lower extremity weakness), Non Tender, No Calf Tenderness, No Pedal Edema Neurologic/Psychiatric: Alert, Oriented x3, Normal Mood/Affect, Facial Droop ( left), Motor Weakness (left sided weakness, left facial droop, thickened speech but today, 12/10/18 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 Assessment/Plan Assessment and Plan Assess & Plan/Chief Complaint Assessment: s/p right INDUSTRIAL ENGINEERING stroke with left sided weakness HTN HTG HLP Hypothyroidism STEPH on CPAP Hypokalemia chronic and allergic to supplement DM OOC DVT PPx with Lovenox Plan: Intensive PT/OT/Speech therapies Monitor bowel function Fall risk management Actos home med restarted but lower dose 15mg PO BID Continue statin and therapies (1) Acute right INDUSTRIAL ENGINEERING stroke (2) DVT prophylaxis (3) Hyperglyceridemia (4) Hypokalemia (5) Weakness of left side of body (6) Difficulty speaking (7) Dysphagia (8) STEPH on CPAP (9) Non-insulin dependent type 2 diabetes mellitus (10) Essential (primary) hypertension (11) Obesity (12) Hypothyroidism Clinical Quality Measures DVT/VTE Risk/Contraindication: Risk Factor Score Per Nursin RFS Level Per Nursing on Admit: 4+=Very High LOREN MILLER DO Dec 15, 2018 11:13
--- NOTE | 2018-12-15 11:15 | Physical Therapy Daily Note ---
PT Daily Note-Current Subjective Pt agreeable and motivated. Pt denotes pain 6/10 in all joints. Pt notes her ( L) LE strength is showing improvement every day. Pt required min A to don (L) shoe. Mental Status Patient Orientation: Person, Place, Situation Pt demonstrates good awareness of (L) side of body, demonstrates normal sequencing during transfers and gait training. Pt demonstrated safe mobility throughout treatment session, no vc's necessary. Transfers Therapy Code Descriptions/Definitions Functional [place] Measure: 0=Not Assessed/NA 4=Minimal Assistance 1=Total Assistance 5=Supervision or Setup 2=Maximal Assistance 6=Modified [place] 3=Moderate Assistance 7=Complete [place] Therapy Quality Codes: 6 Independent with activity with or without an assistive device 5 Patient requires set up or clean up by helper. Patient completes activity by themselves 4 Supervision or touching assist (CGA). [place] provide cues , steadying assist 3 The helper provides less than half the effort to complete the activity 2 The helper provides more than half the effort to complete the activity 1 Dependent. The helper does all the effort to complete an activity 7 Patient refused to complete or attempt activity 9 The patient did not perform the activity before the current illness or injury 88 Not attempted due to Medical conditions or safety concerns Weight Bearing Right Lower Extremity: Right Full Weight Bearing Left Lower Extremity: Left Full Weight Bearing Gait Training Pt amb with hemicane, CGA and f/u of w/c, 2 person assist. Pt amb with shoes on 2 x 30ft. Treatments SPT and bed mobility mod (I). Pt seated in recliner performed ther ex: heel raises, LAQ, hip flexion, manual resisted hip abd and adduction x 20 each Assessment Current Status: Good Progress Pt notes she was able to wiggle toes last night. (L) LE hip 3/5, DF 0/5 at this time, PF 2+/5, knee ext 3+/5, knee flexion 2+/5. Despite (L) LE weakness pt demonstrates good ability to transfer and ambulate with 2 person assist for safety. Pt back to chair with call light and all needs met post therapy session. PT Short Term Goals Short Term Goals Time Frame: Dec 11, 2018 Gait (FIM): 1 Gait Distance Comment: 10' Gait Level of Assist: 3 Gait Assistive Device: Walker Robby Wheelchair Distance: 150'x2 PT Swatch Paster Goals Senior Living Goals PT Swatch Paster Goals Time Frame: Dec 25, 2018 Transfers (B,C,W/C) (FIM): 4 Sit to Lying (QC): 3 Lying-Sitting on Side/Bed(QC): 3 Sit to Stand (QC): 3 Rollin Roll Left to Right (QC): 3 Chair/Nab-nq-Rolql Xfer(QC): 3 Car Transfer (QC): 3 Gait (FIM): 2 Distance: 50' Walk 10 feet (QC): 3 Walk 10ft-Uneven Surface(QC): 3 Walk 50ft with 2 Turns (QC): 3 Walk 150 ft (QC): 3 Gait Level of Assist: 4 Gait Assistive Device: Walker Robby Stairs (FIM): 1 # of Steps: 1 1 Step (curb) (QC): 3 Stairs Level Of Assist: 4 PT Plan Treatment/Plan Treatment Plan: Continue Plan of Care Treatment Plan: Bed Mobility, Concurrent Therapy, Education, Functional Activity Angelita, Functional Strength, Group Therapy, Gait, Safety, Therapeutic Exercise, Transfers Treatment Duration: Dec 25, 2018 Frequency: At least 5 of 7 days/Wk (IRF) Estimated Hrs Per Day: 1.5 hours per day Patient and/or Family Agrees t: Yes Time/GCodes Time In: 906 Time Out: 940 Total Billed Treatment Time: 34 Total Billed Treatment 1, ther ex 15min, gait 19min DANIEL CAZARES CPTMaude Dec 15, 2018 11:15
[2018-12-15 15:25] VITALS: BP 144/68
[2018-12-15] MEDS: ACETAMINOPHEN 500 MG TAB (TYLENOL) PO PRN (21:26)
[2018-12-15] MEDS: ATORVASTATIN 20 MG (LIPITOR) TABLET PO SCH (21:27)
[2018-12-16 05:21] LABS: BASOPHILS % (AUTO) 1 % (0-10); EOSINOPHILS # (AUTO) 0.1 10^3/uL (0.0-0.3); EOSINOPHILS % (AUTO) 2 % (0-10); HEMATOCRIT 39 % (35-52); HEMOGLOBIN 12.7 G/DL (11.5-16.0); LYMPHOCYTES % (AUTO) 40 % (12-44); MEAN CORPUSCULAR HEMOGLOBIN 31 PG (25-34); MEAN CORPUSCULAR HGB CONC 33 G/DL (32-36); MEAN CORPUSCULAR VOLUME 96 FL (80-99); MEAN PLATELET VOLUME 10.4 FL (7.4-10.4); MONOCYTES # (AUTO) 0.5 X 10^3 (0.0-1.0); MONOCYTES % (AUTO) 10 % (0-12); NEUTROPHILS # (AUTO) 2.4 X 10^3 (1.8-7.8); NEUTROPHILS % (AUTO) 48 % (42-75); PLATELET COUNT 198 10^3/uL (130-400); RED CELL DISTRIBUTION WIDTH 13.8 % (10.0-14.5); WHITE BLOOD COUNT 5.1 10^3/uL (4.3-11.0)
[2018-12-16 05:48] LABS: ALANINE AMINOTRANSFERASE 21 U/L (0-55); ALBUMIN 3.9 GM/DL (3.2-4.5); ALKALINE PHOSPHATASE 53 U/L (40-136); BILIRUBIN,TOTAL 0.5 MG/DL (0.1-1.0); BUN/CREATININE RATIO 16; CALCIUM 9.6 MG/DL (8.5-10.1); CARBON DIOXIDE 27 MMOL/L (21-32); CHLORIDE 98 MMOL/L (98-107); CREATININE SERUM 0.73 MG/DL (0.60-1.30); GFR ESTIMATED > 60; GLUCOSE 166 MG/DL (70-105); POTASSIUM 2.9 MMOL/L (3.6-5.0); SODIUM 138 MMOL/L (135-145); TOTAL PROTEIN 6.6 GM/DL (6.4-8.2)
[2018-12-16] MEDS: inSUlin ASPART (NovoLOG) 1 UNIT/0.01 ML (CHARGE PER UNIT) SC SCH ×4 (05:53→21:20)
[2018-12-16] MEDS: ACETAMINOPHEN 500 MG TAB (TYLENOL) PO PRN ×2 (06:13→21:17)
[2018-12-16] MEDS: LEVOTHYROXINE 50 MCG (LEVOTHROID) TAB PO SCH (06:13)
[2018-12-16 06:22] VITALS: BP 147/78
[2018-12-16 09:47] VITALS: BP 148/64
[2018-12-16] MEDS: ASPIRIN E.C. 81 MG (ECOTRIN) TAB PO SCH (09:52)
[2018-12-16] MEDS: PANTOPRAZOLE 20 MG TABLET (PROTONIX) PO SCH (09:52)
[2018-12-16] MEDS: TRIAMTERENE/HCTZ 75-50 (MAXZIDE,DYAZIDE) TABLET PO SCH (09:52)
[2018-12-16] MEDS: PIOGLITAZONE 30MG (ACTOS) TAB PO SCH ×2 (09:52→21:15)
[2018-12-16] MEDS: amLODIPine 10 MG (NORVASC) TAB PO SCH (09:52)
[2018-12-16] MEDS: CELECOXIB 100 MG (CeleBREX) CAP PO SCH ×2 (09:52→21:15)
[2018-12-16] MEDS: DOCUSATE SODIUM 100 MG (COLACE) CAP PO SCH ×2 (09:53→21:17)
[2018-12-16] MEDS: ENOXAPARIN 40 MG/0.4 ML (LOVENOX) SYR SC SCH ×2 (09:53→21:15)
[2018-12-16] MEDS: TROLAMINE (ASPERCREME) 10% CR 90 GM TUBE TOP SCH ×2 (09:53→21:22)
--- NOTE | 2018-12-16 11:35 | PM&R Progress Note ---
Subjective HPI/CC On Admission Date Seen by Provider: Dec 16, 2018 Time Seen by Provider: 11:45 Chief complaint: Stroke with left sided weakness and dysphasia. HPI: This is a 68yoWF who moved to [place] in 2011 but remained a patient of TERESA Monroe doctor who presented with left sided weakness diagnosed with a stroke (out of tPA window of candidacy) and has been actively pursuing rehab since that time. At this current time she is still have dysphasia and difficulty speaking but her thought process is intact and she will need intensive therapy for the left sided weakness. Curry catheter has been maintained and that will be discontinued. Bowels are moving she reports after meds were given. I reviewed all of her home medication that included Celebrex and will maintain on Aspirin and low dose Statin therapy following a stroke per protocol. Pt is agreeable for inpatient rehab and intensive therapy to regain function following a devastating stroke with left sided weakness. She lives at home alone. 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 Pt does have chronic pain, fibromyalgia, and osteoarthritis that she struggles with on an ongoing basis. Subjective/Events-last exam Patient doing well and function of left toes is improved Denies any new pain Doing very well and motivated Uplifted attitude since family visited from [place] last week Accuchecks are stable and Actos changed to 15mg PO BID BM+ Potassium 2.9 but allergic to potassium supplement so will increase her consumption of potassium containing foods Review of Systems General: Fatigue Objective Exam Vital Signs Vital Signs Date Time Temp Pulse Resp B/P (MAP) Pulse Ox O2 Delivery O2 Flow Rate FiO2 12/16/18 09:47 62 20 148/64 (92) 96 Room Air 12/16/18 06:22 97.4 25.00 Capillary Refill : General Appearance: No Apparent Distress, WD/WN, Chronically ill, Obese HEENT: PERRL/EOMI, Normal ENT Inspection, Pharynx Normal, Moist Mucous Membranes Neck: Full Range of Motion, Normal Inspection, Non Tender, Supple Respiratory: Chest Non Tender, Lungs Clear, Normal Breath Sounds, No Accessory Muscle Use, No Respiratory Distress Cardiovascular: Regular Rate, Rhythm, No Edema, No Gallop, No JVD, No Murmur Gastrointestinal: Normal Bowel Sounds, No Organomegaly, No Pulsatile Mass, Non Tender, Soft Back: Normal Inspection, No CVA Tenderness, No Vertebral Tenderness Extremity: Normal Capillary Refill, Normal Inspection, Normal Range of Motion ( except left upper ad lower extremity weakness), Non Tender, No Calf Tenderness, No Pedal Edema Neurologic/Psychiatric: Alert, Oriented x3, Normal Mood/Affect, Facial Droop ( left), Motor Weakness (left sided weakness, left facial droop, thickened speech but today, 12/10/18 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 sided weakness HTN HTG HLP Hypothyroidism STEPH on CPAP Hypokalemia chronic and allergic to supplement DM OOC DVT PPx with Lovenox Plan: Intensive PT/OT/Speech therapies Monitor bowel function Fall risk management Actos home med restarted but lower dose 15mg PO BID Continue statin and therapies (1) Acute right MARKETING TECHNOLOGY SPECIALIST stroke (2) DVT prophylaxis (3) Hyperglyceridemia (4) Hypokalemia (5) Weakness of left side of body (6) Difficulty speaking (7) Dysphagia (8) STEPH on CPAP (9) Non-insulin dependent type 2 diabetes mellitus (10) Essential (primary) hypertension (11) Obesity (12) Hypothyroidism Clinical Quality Measures DVT/VTE Risk/Contraindication: Risk Factor Score Per Nursin RFS Level Per Nursing on Admit: 4+=Very High LOREN MILLER DO Dec 16, 2018 11:35
[2018-12-16 20:12] VITALS: BP 156/67
[2018-12-16] MEDS: ATORVASTATIN 20 MG (LIPITOR) TABLET PO SCH (21:15)
[2018-12-17] MEDS: LEVOTHYROXINE 50 MCG (LEVOTHROID) TAB PO SCH (05:55)
[2018-12-17] MEDS: HYDROcodone/APAP 5 MG/325 MG (LORTAB) TAB PO PRN (05:56)
[2018-12-17 05:57] VITALS: BP 149/81
[2018-12-17] MEDS: inSUlin ASPART (NovoLOG) 1 UNIT/0.01 ML (CHARGE PER UNIT) SC SCH ×4 (06:00→21:36)
[2018-12-17] MEDS: amLODIPine 10 MG (NORVASC) TAB PO SCH (08:07)
[2018-12-17] MEDS: ASPIRIN E.C. 81 MG (ECOTRIN) TAB PO SCH (08:07)
[2018-12-17] MEDS: PANTOPRAZOLE 20 MG TABLET (PROTONIX) PO SCH (08:07)
[2018-12-17] MEDS: CELECOXIB 100 MG (CeleBREX) CAP PO SCH ×2 (08:07→21:37)
[2018-12-17] MEDS: PIOGLITAZONE 30MG (ACTOS) TAB PO SCH ×2 (08:09→21:37)
[2018-12-17] MEDS: TRIAMTERENE/HCTZ 75-50 (MAXZIDE,DYAZIDE) TABLET PO SCH (08:09)
[2018-12-17] MEDS: DOCUSATE SODIUM 100 MG (COLACE) CAP PO SCH ×2 (08:10→19:24)
[2018-12-17] MEDS: ENOXAPARIN 40 MG/0.4 ML (LOVENOX) SYR SC SCH ×2 (08:10→21:36)
[2018-12-17] MEDS: TROLAMINE (ASPERCREME) 10% CR 90 GM TUBE TOP SCH ×2 (08:11→22:11)
--- NOTE | 2018-12-17 08:21 | PM&R Progress Note ---
Subjective HPI/CC On Admission Date Seen by Provider: Dec 17, 2018 Time Seen by Provider: 08:30 Chief complaint: Stroke with left sided weakness and dysphasia. HPI: This is a 68yoWF who moved to [place] in 2011 but remained a patient of TERESA Monroe doctor who presented with left sided weakness diagnosed with a stroke (out of tPA window of candidacy) and has been actively pursuing rehab since that time. At this current time she is still have dysphasia and difficulty speaking but her thought process is intact and she will need intensive therapy for the left sided weakness. Curry catheter has been maintained and that will be discontinued. Bowels are moving she reports after meds were given. I reviewed all of her home medication that included Celebrex and will maintain on Aspirin and low dose Statin therapy following a stroke per protocol. Pt is agreeable for inpatient rehab and intensive therapy to regain function following a devastating stroke with left sided weakness. She lives at home alone. 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 Pt does have chronic pain, fibromyalgia, and osteoarthritis that she struggles with on an ongoing basis. Subjective/Events-last exam Pt doing well Participating in therapies Walking with a quad cane Denies any significant issues, no decubitus ulcer reported Bowels are normal Consuming potassium containing foods Review of Systems General: Fatigue Objective Exam Vital Signs Vital Signs Date Time Temp Pulse Resp B/P (MAP) Pulse Ox O2 Delivery O2 Flow Rate FiO2 12/17/18 09:11 Room Air 12/17/18 05:57 97.4 71 18 149/81 (103) 95 12/16/18 22:37 25.00 Capillary Refill : General Appearance: No Apparent Distress, WD/WN, Chronically ill, Obese HEENT: PERRL/EOMI, Normal ENT Inspection, Pharynx Normal, Moist Mucous Membranes Neck: Full Range of Motion, Normal Inspection, Non Tender, Supple Respiratory: Chest Non Tender, Lungs Clear, Normal Breath Sounds, No Accessory Muscle Use, No Respiratory Distress Cardiovascular: Regular Rate, Rhythm, No Edema, No Gallop, No JVD, No Murmur Gastrointestinal: Normal Bowel Sounds, No Organomegaly, No Pulsatile Mass, Non Tender, Soft Back: Normal Inspection, No CVA Tenderness, No Vertebral Tenderness Extremity: Normal Capillary Refill, Normal Inspection, Normal Range of Motion ( except left upper ad lower extremity weakness), Non Tender, No Calf Tenderness, No Pedal Edema Neurologic/Psychiatric: Alert, Oriented x3, Normal Mood/Affect, Facial Droop ( left), Motor Weakness (left sided weakness, left facial droop, thickened speech but today, 12/10/18 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 with left sided weakness HTN HTG HLP Hypothyroidism STEPH on CPAP Hypokalemia chronic and allergic to supplement DM OOC DVT PPx with Lovenox Plan: Intensive PT/OT/Speech therapies Monitor bowel function Fall risk management Actos home med restarted but lower dose 15mg PO BID Continue statin and therapies Wants to return home to live independently (1) Acute right CASINO ATTENDANT stroke (2) DVT prophylaxis (3) Hyperglyceridemia (4) Hypokalemia (5) Weakness of left side of body (6) Difficulty speaking (7) Dysphagia (8) STEPH on CPAP (9) Non-insulin dependent type 2 diabetes mellitus (10) Essential (primary) hypertension (11) Obesity (12) Hypothyroidism Clinical Quality Measures DVT/VTE Risk/Contraindication: Risk Factor Score Per Nursin RFS Level Per Nursing on Admit: 4+=Very High LOREN MILLER DO Dec 17, 2018 08:21
--- NOTE | 2018-12-17 09:09 | Physical Therapy Daily Note ---
PT Daily Note-Current Subjective Pt. states she is having more pain today than she remembers having since she has been here. Pt. rates pain at 7-8/10 "all over her body". Pt. requests estim to anterior tib to assist with DF left ankle. Pain Numeric Pain Scale: 8 Location: Right Location Body Site: Shoulder Pain Description: Burning Appearance moaning and states she is fatigued after gait and having more pain Mental Status Patient Orientation: Normal For Age Transfers Therapy Code Descriptions/Definitions Functional [place] Measure: 0=Not Assessed/NA 4=Minimal Assistance 1=Total Assistance 5=Supervision or Setup 2=Maximal Assistance 6=Modified [place] 3=Moderate Assistance 7=Complete [place] Therapy Quality Codes: 6 Independent with activity with or without an assistive device 5 Patient requires set up or clean up by helper. Patient completes activity by themselves 4 Supervision or touching assist (CGA). Whick provide cues , steadying assist 3 The helper provides less than half the effort to complete the activity 2 The helper provides more than half the effort to complete the activity 1 Dependent. The helper does all the effort to complete an activity 7 Patient refused to complete or attempt activity 9 The patient did not perform the activity before the current illness or injury 88 Not attempted due to Medical conditions or safety concerns Transfers (B, C, W/C) (FIM): 4 Scootin Rollin Supine to/from Sit: 4 Sit to/from Stand: 4 Bed to/from Chair: 4 Weight Bearing Right Lower Extremity: Right Full Weight Bearing Left Lower Extremity: Left Full Weight Bearing Gait Training Does the Patient Walk?: Yes Gait (FIM): 1 Distance (FIM): 1=up to 49 ft (25x3) Gait Level of Assist: 3 Gait Persons Needed: 1 Gait Assistive Device: Walker Robby requires some instruction for sequence as well as step length Wheelchair Training Does the Pt Use a Wheelchair?: Yes Wheelchair (FIM): 4 Wheelchair Distance: 3=150 ft Wheelchair Level of Assist: 4 Type of Wheelchair: Manual Exercises Supine Ex: Bridging, Ankle pumps, Quad Set, Rolling, Glut sets, Heel Slides, Short Arc Quads, Scooting, Straight leg raise, Hip abd/add Supine Reps: 15 Seated Therapy Exercises: Sit to stand, Long arc quads, Hip flexion Seated Reps: 12 Treatments Estim left ant tibx 10 min , various placements, unable to produce any DF. Assessment Current Status: Good Progress pain c/o limit Rx this date PT Short Term Goals Short Term Goals Time Frame: Dec 11, 2018 Gait (FIM): 1 Gait Distance Comment: 10' Gait Level of Assist: 3 Gait Assistive Device: Walker Robby Wheelchair Distance: 150'x2 PT Long-Term Goals Waiter Goals PT Long-Term Goals Time Frame: Dec 25, 2018 Transfers (B,C,W/C) (FIM): 4 Sit to Lying (QC): 3 Lying-Sitting on Side/Bed(QC): 3 Sit to Stand (QC): 3 Rollin Roll Left to Right (QC): 3 Chair/Ipu-mj-Giebh Xfer(QC): 3 Car Transfer (QC): 3 Gait (FIM): 2 Distance: 50' Walk 10 feet (QC): 3 Walk 10ft-Uneven Surface(QC): 3 Walk 50ft with 2 Turns (QC): 3 Walk 150 ft (QC): 3 Gait Level of Assist: 4 Gait Assistive Device: Walker Robby Stairs (FIM): 1 # of Steps: 1 1 Step (curb) (QC): 3 Stairs Level Of Assist: 4 PT Plan Treatment/Plan Treatment Plan: Continue Plan of Care Treatment Plan: Bed Mobility, Concurrent Therapy, Education, Functional Activity Angelita, Functional Strength, Group Therapy, Gait, Safety, Therapeutic Exercise, Transfers Treatment Duration: Dec 25, 2018 Frequency: At least 5 of 7 days/Wk (IRF) Estimated Hrs Per Day: 1.5 hours per day Patient and/or Family Agrees t: Yes Safety Risks/Education Patient Education: Gait Training, Transfer Techniques, Correct Positioning, W/ C Management, Disease Process, Safety Issues Teaching Recipient: Patient Teaching Methods: Demonstration, Discussion Response to Teaching: Verbalize Understanding, Return Demonstration, Reinforcement Needed Time/GCodes Time In: 800 Time Out: 900 Total Billed Treatment Time: 60 Total Billed Treatment 1,ES10m,GT15m,WC20m,EX15m G Codes Necessary: TAPAN Barton CROP OR GRAIN FARMER Dec 17, 2018 09:09
[2018-12-17] MEDS: ACETAMINOPHEN 500 MG TAB (TYLENOL) PO PRN ×2 (11:17→22:38)
--- NOTE | 2018-12-17 12:04 | Physical Therapy Daily Note ---
PT Daily Note-Current Subjective Pt. agrees to Rx. Feels she has made progress Mental Status Patient Orientation: Normal For Age Transfers Therapy Code Descriptions/Definitions Functional [place] Measure: 0=Not Assessed/NA 4=Minimal Assistance 1=Total Assistance 5=Supervision or Setup 2=Maximal Assistance 6=Modified [place] 3=Moderate Assistance 7=Complete [place] Therapy Quality Codes: 6 Independent with activity with or without an assistive device 5 Patient requires set up or clean up by helper. Patient completes activity by themselves 4 Supervision or touching assist (CGA). Marcella provide cues , steadying assist 3 The helper provides less than half the effort to complete the activity 2 The helper provides more than half the effort to complete the activity 1 Dependent. The helper does all the effort to complete an activity 7 Patient refused to complete or attempt activity 9 The patient did not perform the activity before the current illness or injury 88 Not attempted due to Medical conditions or safety concerns emphasis on SPTs in out w/c , turning w/c 180 degrees manually while seated on mat so that she can TRF toward her right again after sitting up from mat. Pt. also worked on TRFs sup to side to sit from left and right both utilizing bed rail/cane. Pt. SBA sup to sit and SBA to CGA SPTs bed to w/c every trial ( x 8) Weight Bearing Right Lower Extremity: Right Full Weight Bearing Left Lower Extremity: Left Full Weight Bearing Gait Training emphasis on turns and approaches to chair and w/c as well as sit to stands from lower/ standard height surfaces. Pt. improving, approached left turns and right turns, no LOB, instruction for technique and safety needed Wheelchair Training Type of Wheelchair: Manual pt. instructed to try to use LLE for w/c propulsion until she is fatigued, then use RLE to support LLE when too fatigued to cont Exercises Seated Therapy Exercises: Ankle pumps, Sit to stand, Long arc quads, Hip flexion Seated Reps: 20 Assessment Current Status: Good Progress PT Short Term Goals Short Term Goals Time Frame: Dec 11, 2018 Gait (FIM): 1 Gait Distance Comment: 10' Gait Level of Assist: 3 Gait Assistive Device: Walker Robby Wheelchair Distance: 150'x2 PT Spindle Frame Carver Goals Spindle Frame Carver Goals PT Spindle Frame Carver Goals Time Frame: Dec 25, 2018 Transfers (B,C,W/C) (FIM): 4 Sit to Lying (QC): 3 Lying-Sitting on Side/Bed(QC): 3 Sit to Stand (QC): 3 Rollin Roll Left to Right (QC): 3 Chair/Hzl-so-Puvys Xfer(QC): 3 Car Transfer (QC): 3 Gait (FIM): 2 Distance: 50' Walk 10 feet (QC): 3 Walk 10ft-Uneven Surface(QC): 3 Walk 50ft with 2 Turns (QC): 3 Walk 150 ft (QC): 3 Gait Level of Assist: 4 Gait Assistive Device: Walker Robby Stairs (FIM): 1 # of Steps: 1 1 Step (curb) (QC): 3 Stairs Level Of Assist: 4 PT Plan Treatment/Plan Treatment Plan: Continue Plan of Care Treatment Plan: Bed Mobility, Concurrent Therapy, Education, Functional Activity Angelita, Functional Strength, Group Therapy, Gait, Safety, Therapeutic Exercise, Transfers Treatment Duration: Dec 25, 2018 Frequency: At least 5 of 7 days/Wk (IRF) Estimated Hrs Per Day: 1.5 hours per day Patient and/or Family Agrees t: Yes Safety Risks/Education Patient Education: Gait Training, Transfer Techniques, Correct Positioning, W/ C Management, Disease Process, Safety Issues Teaching Recipient: Patient Teaching Methods: Demonstration, Discussion Response to Teaching: Verbalize Understanding, Return Demonstration, Reinforcement Needed Time/GCodes Time In: 1130 Time Out: 1200 Total Billed Treatment Time: 30 Total Billed Treatment 1,GT10m,FA20m G Codes Necessary: TAPAN Barton PTA Dec 17, 2018 12:04
--- NOTE | 2018-12-17 12:55 | Occupational Ther Daily Note ---
OT Current Status-Daily Note Subjective Pt alert, sitting in recliner. Pt agrees to therapy. Pt states that she is tired today. No c/o pain at this time. Mental Status/Objective Patient Orientation: Person, Place, Time, Situation Therapy Code Descriptions/Definitions Functional [place] Measure: 0=Not Assessed/NA 4=Minimal Assistance 1=Total Assistance 5=Supervision or Setup 2=Maximal Assistance 6=Modified [place] 3=Moderate Assistance 7=Complete [place] ADL-Treatment Pt declines shower. Changed clothing and completed sponge bath at sink. Completed grooming sitting at sink. Assist to lift up L UE to wash/dry under then pt able to complete rest of upper body bathing. Pt then transferred to toilet to complete toileting. Completes toileting hygiene/bathing cari area/ buttocks with SBA for safety. Therapy Code Descriptions/Definitions Functional [place] Measure: 0=Not Assessed/NA 4=Minimal Assistance 1=Total Assistance 5=Supervision or Setup 2=Maximal Assistance 6=Modified [place] 3=Moderate Assistance 7=Complete [place] Therapy Quality Codes: 6 Independent with activity with or without an assistive device 5 Patient requires set up or clean up by helper. Patient completes activity by themselves 4 Supervision or touching assist (CGA). [place] provide cues , steadying assist 3 The helper provides less than half the effort to complete the activity 2 The helper provides more than half the effort to complete the activity 1 Dependent. The helper does all the effort to complete an activity 7 Patient refused to complete or attempt activity 9 The patient did not perform the activity before the current illness or injury 88 Not attempted due to Medical conditions or safety concerns Grooming (FIM): 6 Oral Hygiene (QC): 6 Other Treatment Electrical stimulation to L UE for AAROM for flex/ext of elbow, wrist and fingers. Tolerated 8 patel resistance attempting to decrease patel for more AROM. Pt is demonstrating increased strength of AROM by being able to complete 5-10 reps which has progressed from 3 reps. Pt then completed arm bike with L hand wrapped onto handle. Promotes L shldr AAROM, strengthening and activity tolerance. Pt able to rotate arm bike with L UE only with no resistance for 3 min. 12 min B UE for arm bike with no resistance. After therapy, pt sitting in recliner with call light/phone in reach. All needs met in room. OT Short Term Goals Short Term Goals Time Frame: Dec 11, 2018 Upper Body Dressing(FIM): 3 Lower Body Dressing(FIM): 3 Toileting(FIM): 3 Toilet/Commode Transfer(FIM): 3 Additional Short Term Goals: 1-Demonstrate ADL Tasks, 2-Verbalize Understanding , 3-ImproveStrength/Angelita 1=Demonstrate adherence to instructed precautions during ADL tasks. 2=Patient will verbalize/demonstrate understanding of assistive devices/ modifications for ADL. 3=Patient will improve strength/tolerance for activity to enable patient to perform ADL's. OT Loan Broker Goals Long-Term Goals Time Frame: Dec 28, 2018 Eating (FIM): 6 Eating (QC): 6 Groomin Oral Hygiene (QC): 6 Bathing(FIM): 4 Shower/Bathe Self (QC): 4 Upper Body Dressing(FIM): 5 Upper Body Dressing (QC): 5 Lower Body Dressing(FIM): 5 Lower Body Dressing (QC): 5 On/Off Footwear (QC): 5 Toileting(FIM): 5 Toileting Hygiene (QC): 5 Toilet/Commode Transfer(FIM): 5 Toilet/Commode Transfer (QC): 5 Shower Transfer(FIM): 5 Additional Goals: 1-Demonstrate ADL Tasks, 2-Verbalize Understanding, 3- ImproveStrength/Angelita 1=Demonstrate adherence to instructed precautions during ADL tasks. 2=Patient will verbalize/demonstrate understanding of assistive devices/ modifications for ADL. 3=Patient will improve strength/tolerance for activity to enable patient to perform ADL's. OT Education/Plan Discharge Recommendations Plan/Recommendations: Continue POC Treatment Plan/Plan of Care Patient would benefit from OT for education, treatment and training to promote independence in ADL's, mobility, safety and/or upper extremity function for ADL' s. Plan of Care: ADL Retraining, Functional Mobility, Group Exercise/Act as Ind, UE Funct Exercise/Act, UE Neuromus Re-Ed/Coord Treatment Duration: Dec 28, 2018 Frequency: At least 5 of 7 days/Wk (IRF) Estimated Hrs Per Day: 1.5 hours per day Agreement: Yes Rehab Potential: Good Time/GCodes Start Time: 09:00 Stop Time: 10:30 Total Time Billed (hr/min): 90 Billed Treatment Time 1 visit-NM 2 (30 min) EX 1 (15 min) ADL 3 (45 min) MADHAVI MENA Dec 17, 2018 12:55
--- NOTE | 2018-12-17 14:53 | Speech Therapy Daily Note ---
Speech Daily Progress Note Subjective Date Seen by Provider: Dec 17, 2018 Time Seen by Provider: 00:30 Patient was eating her lunch, the first time she has tried to eat bread. She demo good intake without swallowing difficulty. Objective Patient utilizes compensatory strategies as trained for oral intake. Patient consumed her lunch of a ham sandwich without any overt s/s of aspiration noted this date. Assessment Assessment Current Status: Good Progress Treatment Plan Continue Plan of Care Communication Comprehension: 7 Expression: 7 Social Cognition Social Interaction: 7 Problem Solvin Memory: 7 Speech Short Term Goals Short Term Goals Short Term Goals 1) Patient will utilize compensatory strategies as trained for safe oral intake of the least restrictive diet with 90% or greater. 2) Patient will demonstrate safe oral intake of the least restrictive diet level with 90% or greater. Speech Hydrogen Treater Goals Hydrogen Treater Goals Patient will maintain adequate nutrition/hydration via safe effective swallow function. Speech-Plan Patient/Family Goals Patient/Family Goals: Patient plans to return home post rehab. Treatment Plan Speech Therapy Treatment Plan: Continue Plan of Care Patient is making good progress as a result of skilled ST services. Treatment Duration: Dec 21, 2018 Frequency: 4 times per week Estimated Hrs Per Day: .5 hour per day Rehab Potential: Good Barriers to Learning: Recent onset of CVA Pt/Family Agrees to Plan: Yes Safety Risks/Education Teaching Recipient: Patient Teaching Methods: Discussion Response to Teaching: Verbalize Understanding Education Topics Provided: Safety strategies for oral intake reviewed. Time Speech Therapy Time In: 12:30 Speech Therapy Time Out: 13:00 Total Billed Time: 30 Billed Treatment Time 1FED[address] Dec 17, 2018 14:53
--- NOTE | 2018-12-17 15:04 | NUR ---
Patient to review loaner bipap machine from [employer]. Grace RT will deliver and set up equipment later today.
[2018-12-17 17:26] VITALS: BP 144/76
[2018-12-17] MEDS: ATORVASTATIN 20 MG (LIPITOR) TABLET PO SCH (21:37)
[2018-12-18] MEDS: LEVOTHYROXINE 50 MCG (LEVOTHROID) TAB PO SCH (05:43)
[2018-12-18] MEDS: HYDROcodone/APAP 5 MG/325 MG (LORTAB) TAB PO PRN (05:43)
[2018-12-18] MEDS: inSUlin ASPART (NovoLOG) 1 UNIT/0.01 ML (CHARGE PER UNIT) SC SCH ×4 (05:51→20:56)
[2018-12-18 05:58] VITALS: BP 154/85
--- NOTE | 2018-12-18 08:30 | PM&R Progress Note ---
Subjective HPI/CC On Admission Date Seen by Provider: Dec 18, 2018 Time Seen by Provider: 08:15 Chief complaint: Stroke with left sided weakness and dysphasia. HPI: This is a 68yoWF who moved to [place] in 2011 but remained a patient of TERESA Monroe doctor who presented with left sided weakness diagnosed with a stroke (out of tPA window of candidacy) and has been actively pursuing rehab since that time. At this current time she is still have dysphasia and difficulty speaking but her thought process is intact and she will need intensive therapy for the left sided weakness. Curry catheter has been maintained and that will be discontinued. Bowels are moving she reports after meds were given. I reviewed all of her home medication that included Celebrex and will maintain on Aspirin and low dose Statin therapy following a stroke per protocol. Pt is agreeable for inpatient rehab and intensive therapy to regain function following a devastating stroke with left sided weakness. She lives at home alone. 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 Pt does have chronic pain, fibromyalgia, and osteoarthritis that she struggles with on an ongoing basis. Subjective/Events-last exam Pt doing well Used borrowed CPAP machine and slept better than with the biPAP machine Participating in therapiesand experiencing regained function Walking with a quad cane Denies any significant issues Bowels are normal Consuming potassium containing foods Review of Systems Neurological: Weakness, Numbness, Incoordination Objective Exam Vital Signs Vital Signs Date Time Temp Pulse Resp B/P (MAP) Pulse Ox O2 Delivery O2 Flow Rate FiO2 12/18/18 05:58 97.6 85 14 154/85 (108) 95 Room Air 12/16/18 22:37 25.00 Capillary Refill : General Appearance: No Apparent Distress, WD/WN, Chronically ill, Obese HEENT: PERRL/EOMI, Normal ENT Inspection, Pharynx Normal, Moist Mucous Membranes Neck: Full Range of Motion, Normal Inspection, Non Tender, Supple Respiratory: Chest Non Tender, Lungs Clear, Normal Breath Sounds, No Accessory Muscle Use, No Respiratory Distress Cardiovascular: Regular Rate, Rhythm, No Edema, No Gallop, No JVD, No Murmur Gastrointestinal: Normal Bowel Sounds, No Organomegaly, No Pulsatile Mass, Non Tender, Soft Back: Normal Inspection, No CVA Tenderness, No Vertebral Tenderness Extremity: Normal Capillary Refill, Normal Inspection, Normal Range of Motion ( except left upper ad lower extremity weakness), Non Tender, No Calf Tenderness, No Pedal Edema Neurologic/Psychiatric: Alert, Oriented x3, Normal Mood/Affect, Facial Droop ( left), Motor Weakness (left sided weakness, left facial droop, thickened speech but today, 12/10/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 Assessment/Plan Assessment and Plan Assess & Plan/Chief Complaint Assessment: s/p right PERSONAL COMPANION stroke with left sided weakness HTN HTG HLP Hypothyroidism STEPH on CPAP Hypokalemia chronic and allergic to supplement DM OOC DVT PPx with Lovenox Plan: Intensive PT/OT/Speech therapies Monitor bowel function Fall risk management Actos tolerated Continue statin and therapies Wants to return home to live independently CPAP use (1) Acute right PERSONAL COMPANION stroke (2) DVT prophylaxis (3) Hyperglyceridemia (4) Hypokalemia (5) Weakness of left side of body (6) Difficulty speaking (7) Dysphagia (8) STEPH on CPAP (9) Non-insulin dependent type 2 diabetes mellitus (10) Essential (primary) hypertension (11) Obesity (12) Hypothyroidism Clinical Quality Measures DVT/VTE Risk/Contraindication: Risk Factor Score Per Nursin RFS Level Per Nursing on Admit: 4+=Very High LOREN MILLER DO Dec 18, 2018 08:30
[2018-12-18] MEDS: PANTOPRAZOLE 20 MG TABLET (PROTONIX) PO SCH (09:04)
[2018-12-18] MEDS: ASPIRIN E.C. 81 MG (ECOTRIN) TAB PO SCH (09:04)
[2018-12-18] MEDS: DOCUSATE SODIUM 100 MG (COLACE) CAP PO SCH ×2 (09:04→21:43)
[2018-12-18] MEDS: PIOGLITAZONE 30MG (ACTOS) TAB PO SCH ×2 (09:04→21:41)
[2018-12-18] MEDS: amLODIPine 10 MG (NORVASC) TAB PO SCH (09:04)
[2018-12-18] MEDS: TRIAMTERENE/HCTZ 75-50 (MAXZIDE,DYAZIDE) TABLET PO SCH (09:04)
[2018-12-18] MEDS: CELECOXIB 100 MG (CeleBREX) CAP PO SCH ×2 (09:04→21:41)
[2018-12-18] MEDS: ENOXAPARIN 40 MG/0.4 ML (LOVENOX) SYR SC SCH ×2 (09:05→21:41)
--- NOTE | 2018-12-18 09:19 | Physical Therapy Daily Note ---
PT Daily Note-Current Subjective Pt asleep laying Supine in bed upon arrival. Pt removes C-pap before start of tx. Pt agrees to PT despite report of pain in back. Pt could not have pain med yet. Pain Numeric Pain Scale: 6 Location Body Site: Back Pain Description: Ache, Tightness Mental Status Patient Orientation: Person, Place, Time, Situation Transfers Therapy Code Descriptions/Definitions Functional [place] Measure: 0=Not Assessed/NA 4=Minimal Assistance 1=Total Assistance 5=Supervision or Setup 2=Maximal Assistance 6=Modified [place] 3=Moderate Assistance 7=Complete [place] Therapy Quality Codes: 6 Independent with activity with or without an assistive device 5 Patient requires set up or clean up by helper. Patient completes activity by themselves 4 Supervision or touching assist (CGA). [place] provide cues , steadying assist 3 The helper provides less than half the effort to complete the activity 2 The helper provides more than half the effort to complete the activity 1 Dependent. The helper does all the effort to complete an activity 7 Patient refused to complete or attempt activity 9 The patient did not perform the activity before the current illness or injury 88 Not attempted due to Medical conditions or safety concerns Scootin Rollin Supine to/from Sit: 5 Sit to/from Stand: 5 Sit to Stand (QC): 5 Pt is able to transfer Supine to EOB w/HOB raised. Weight Bearing Right Lower Extremity: Right Full Weight Bearing Left Lower Extremity: Left Full Weight Bearing Gait Training Does the Patient Walk?: Yes Distance (FIM): 4=986-72 ft Distance: 75', 50' Walk 10 feet (QC): 4 Walk 50 ft with 2 Turns(QC): 4 Gait Level of Assist: 4 Gait Persons Needed: 1 Gait Assistive Device: Walker Robby Pt has slow amadeo but steady, no LOB. Pt is motivated and continues to push self to improve. Wheelchair Training Does the Pt Use a Wheelchair?: Yes Wheelchair Distance: 3=150 ft Distance: 150' Wheelchair Level of Assist: 5 Wheel 50 ft with 2 turns (QC): 5 Wheel 150 ft (QC): 5 Type of Wheelchair: Manual Exercises Seated Therapy Exercises: Sit to stand NuStep Minutes: 13 NuStep Workload: [address] Singh and is able to roll to side for to listen to pt's breathing. Pt transfers from Supine to EOB with HOB raised. Pt transfers from EOB to W/C using SPT. Pt propels W/C to Therapy Gym then transfers from W/C to NuStep using SPT. Pt uses NuStep for 13m at WL 1 for ROM. Pt then transfers back to W/C and ambulates in hallway using Robby at CGA. Pt returns to room at end of tx to rest before OT. Pt has all needs met as OT arrives. Assessment Current Status: Good Progress Pt is motivated and continues to push self to improve with transfers and ambulation distance & safety. Pt's knees fatigue during ambulation and needs short rest before ambulating again. Pt gets a little fatigued/weak by end of ambulation, needing to eat. PT Short Term Goals Short Term Goals Time Frame: Dec 11, 2018 Gait (FIM): 1 Gait Distance Comment: 10' Gait Level of Assist: 3 Gait Assistive Device: Walker Robby Wheelchair Distance: 150'x2 PT Diesel Engine Erector Goals Diesel Engine Erector Goals PT Alf Goals Time Frame: Dec 25, 2018 Transfers (B,C,W/C) (FIM): 4 Sit to Lying (QC): 3 Lying-Sitting on Side/Bed(QC): 3 Sit to Stand (QC): 3 Rollin Roll Left to Right (QC): 3 Chair/Rve-sk-Mphrw Xfer(QC): 3 Car Transfer (QC): 3 Gait (FIM): 2 Distance: 50' Walk 10 feet (QC): 3 Walk 10ft-Uneven Surface(QC): 3 Walk 50ft with 2 Turns (QC): 3 Walk 150 ft (QC): 3 Gait Level of Assist: 4 Gait Assistive Device: Walker Robby Stairs (FIM): 1 # of Steps: 1 1 Step (curb) (QC): 3 Stairs Level Of Assist: 4 PT Plan Problem List Problem List: Activity Tolerance, Functional Strength, Gait Treatment/Plan Treatment Plan: Continue Plan of Care Treatment Plan: Bed Mobility, Concurrent Therapy, Education, Functional Activity [place], Functional Strength, Group Therapy, Gait, Safety, Therapeutic Exercise, Transfers Treatment Duration: Dec 25, 2018 Frequency: At least 5 of 7 days/Wk (IRF) Estimated Hrs Per Day: 1.5 hours per day Patient and/or Family Agrees t: Yes Safety Risks/Education Patient Education: Gait Training, Transfer Techniques, Correct Positioning, W/ C Management, Safety Issues Teaching Recipient: Patient Teaching Methods: Discussion Response to Teaching: Verbalize Understanding Time/GCodes Time In: 800 Time Out: 900 Total Billed Treatment Time: 60 Total Billed Treatment 1, WCH (15m), FA (15m), GT (15m) & EX (15m) G Codes Necessary: [place] [address] Dec 18, 2018 09:19
[2018-12-18] MEDS: TROLAMINE (ASPERCREME) 10% CR 90 GM TUBE TOP SCH ×2 (09:30→21:43)
--- NOTE | 2018-12-18 10:49 | Occupational Ther Daily Note ---
OT Current Status-Daily Note Subjective No pain reported. However, pt. states that she is very tired. Appearance Pt. up in chair. Has just finished with PT. Agrees to shower. Mental Status/Objective Patient Orientation: Person, Place, Time, Situation Therapy Code Descriptions/Definitions Functional [place] Measure: 0=Not Assessed/NA 4=Minimal Assistance 1=Total Assistance 5=Supervision or Setup 2=Maximal Assistance 6=Modified [place] 3=Moderate Assistance 7=Complete [place] ADL-Treatment Therapy Code Descriptions/Definitions Functional [place] Measure: 0=Not Assessed/NA 4=Minimal Assistance 1=Total Assistance 5=Supervision or Setup 2=Maximal Assistance 6=Modified [place] 3=Moderate Assistance 7=Complete [place] Therapy Quality Codes: 6 Independent with activity with or without an assistive device 5 Patient requires set up or clean up by helper. Patient completes activity by themselves 4 Supervision or touching assist (CGA). [place] provide cues , steadying assist 3 The helper provides less than half the effort to complete the activity 2 The helper provides more than half the effort to complete the activity 1 Dependent. The helper does all the effort to complete an activity 7 Patient refused to complete or attempt activity 9 The patient did not perform the activity before the current illness or injury 88 Not attempted due to Medical conditions or safety concerns Grooming (FIM): 5 (Set up at wheelchair level at sink.) Oral Hygiene (QC): 5 Bathing (FIM): 5 (Close SBA in shower. Pt. utilized toilet tongs for cari area , and LH sponge for LE.) Shower/Bathe Self (QC): 4 Upper Body (FIM): 2 (Pt. attempted to don bra this morning. OT attempted to assist pt. with multiple methods. Pt. had great difficulty with this. OT did most of the task. Pt. required mod assistance overall to don shirt.) Upper Body Dressing (QC): 2 Lower Body Dressing (FIM): 2 (Pt. able to thread underwear and pants over feet and up to thigh area. In stance, pt. able to pull up on one side but not the other. Required assistance on left side. Pt. attempted many methods to don socks while in wheelchair. Pt. unable to use sock aide, but had difficulty without it as well. Pt. did engage left hand, but this was difficult. Pt. tranfserred to bed and attempted to put left foot onto bed. Unable to do so, so OT assisted left foot up to wheelchair for positioning. Pt. able to get sock over toes but unable to get over heel. OT assisted with this. Unable to get left shoe on with shoe horn, so OT assisted with this as well. Pt. able to don right sock without equipment, and right shoe with shoe horn. ) Lower Body Dressing (QC): 2 On/Off Footwear (QC): 2 Toileting (FIM): 5 (With use of toilet tongs.) Toileting Hygiene (QC): 4 Transfers (B, C, W/C) (FIM): 5 Toilet/Commode Transfer (FIM): 5 (Pt. utilizes grab bar on wall to stand and transfer to toilet.) Toilet Transfer (QC): 4 Shower Transfer(FIM): 5 Education OT Patient Education: Correct positioning, Modified ADL techniques, Progress toward Goal/Update tx plan, Purpose of tx/functional activities, Reviewed precautions, Rehab process, Transfer techniques, Use of adapted equipment Teaching Recipient: Patient Teaching Methods: Demonstration, Discussion Response to Teaching: Verbalize Understanding, Return Demonstration OT Short Term Goals Short Term Goals Time Frame: Dec 11, 2018 Upper Body Dressing(FIM): 3 Lower Body Dressing(FIM): 3 Toileting(FIM): 3 Toilet/Commode Transfer(FIM): 3 Additional Short Term Goals: 1-Demonstrate ADL Tasks, 2-Verbalize Understanding , 3-ImproveStrength/Angelita 1=Demonstrate adherence to instructed precautions during ADL tasks. 2=Patient will verbalize/demonstrate understanding of assistive devices/ modifications for ADL. 3=Patient will improve strength/tolerance for activity to enable patient to perform ADL's. OT Commodity Supervisor Goals Commodity Supervisor Goals Time Frame: Dec 28, 2018 Eating (FIM): 6 Eating (QC): 6 Groomin Oral Hygiene (QC): 6 Bathing(FIM): 4 Shower/Bathe Self (QC): 4 Upper Body Dressing(FIM): 5 Upper Body Dressing (QC): 5 Lower Body Dressing(FIM): 5 Lower Body Dressing (QC): 5 On/Off Footwear (QC): 5 Toileting(FIM): 5 Toileting Hygiene (QC): 5 Toilet/Commode Transfer(FIM): 5 Toilet/Commode Transfer (QC): 5 Shower Transfer(FIM): 5 Additional Goals: 1-Demonstrate ADL Tasks, 2-Verbalize Understanding, 3- ImproveStrength/Angelita 1=Demonstrate adherence to instructed precautions during ADL tasks. 2=Patient will verbalize/demonstrate understanding of assistive devices/ modifications for ADL. 3=Patient will improve strength/tolerance for activity to enable patient to perform ADL's. OT Education/Plan Problem List/Assessment Assessment: Decreased Activ Tolerance, Decreased UE Strength, Impaired Coordination, Impaired I ADL's, Impaired Self-Care Skills, Restricted Funct UE ROM Discharge Recommendations Plan/Recommendations: Continue POC Treatment Plan/Plan of Care Treatment,Training & Education: Yes Patient would benefit from OT for education, treatment and training to promote independence in ADL's, mobility, safety and/or upper extremity function for ADL' s. Plan of Care: ADL Retraining, Functional Mobility, Group Exercise/Act as Ind, UE Funct Exercise/Act, UE Neuromus Re-Ed/Coord Treatment Duration: Dec 28, 2018 Frequency: At least 5 of 7 days/Wk (IRF) Estimated Hrs Per Day: 1.5 hours per day Agreement: Yes Rehab Potential: Good Time/GCodes Start Time: 09:00 Stop Time: 10:20 Total Time Billed (hr/min): 80 Billed Treatment Time 1, ADL x 5 CHELI LOPEZ OT Dec 18, 2018 10:49
--- NOTE | 2018-12-18 11:59 | Speech Therapy Daily Note ---
Speech Daily Progress Note Subjective Date Seen by Provider: Dec 18, 2018 Time Seen by Provider: 00:30 The patient was resting in her recliner after just finishing her shower with OT. Objective Patient is consuming regular meats and bread with utilization of compensatory strategies and minimal verbal cues. Assessment Assessment Current Status: Good Progress Treatment Plan Continue Plan of Care Communication Comprehension: 7 Expression: 7 Social Cognition Social Interaction: 7 Problem Solvin Memory: 7 Speech Short Term Goals Short Term Goals Short Term Goals 1) Patient will utilize compensatory strategies as trained for safe oral intake of the least restrictive diet with 90% or greater. 2) Patient will demonstrate safe oral intake of the least restrictive diet level with 90% or greater. Speech Assisted Goals Freight Claim Investigator Goals Patient will maintain adequate nutrition/hydration via safe effective swallow function. Speech-Plan Patient/Family Goals Patient/Family Goals: Patient plans to return home with family assistance post rehab. Treatment Plan Speech Therapy Treatment Plan: Continue Plan of Care Patient has made good progress as a result of skilled ST services. Treatment Duration: Dec 21, 2018 Frequency: 4 times per week Estimated Hrs Per Day: .5 hour per day Rehab Potential: Good Barriers to Learning: Patient has a recent CVA Pt/Family Agrees to Plan: Yes Safety Risks/Education Teaching Recipient: Patient Teaching Methods: Discussion Response to Teaching: Verbalize Understanding Education Topics Provided: Continued safety of oral intake. Time Speech Therapy Time In: 10:30 Speech Therapy Time Out: 11:00 Total Billed Time: 30 Billed Treatment Time 1FEDERICO BETHANIA ST Dec 18, 2018 11:59
[2018-12-18] MEDS: ACETAMINOPHEN 500 MG TAB (TYLENOL) PO PRN ×2 (12:42→22:46)
--- NOTE | 2018-12-18 15:09 | Physical Therapy Daily Note ---
PT Daily Note-Current Subjective Pt sitting in W/C in room upon arrival. Pt agrees to PT. Pain Numeric Pain Scale: 5-Moderate Pain Location: Right, Left Location Body Site: Shoulder Pain Description: Ache Mental Status Patient Orientation: Person, Place, Time, Situation Transfers Therapy Code Descriptions/Definitions Functional [place] Measure: 0=Not Assessed/NA 4=Minimal Assistance 1=Total Assistance 5=Supervision or Setup 2=Maximal Assistance 6=Modified [place] 3=Moderate Assistance 7=Complete [place] Therapy Quality Codes: 6 Independent with activity with or without an assistive device 5 Patient requires set up or clean up by helper. Patient completes activity by themselves 4 Supervision or touching assist (CGA). [place] provide cues , steadying assist 3 The helper provides less than half the effort to complete the activity 2 The helper provides more than half the effort to complete the activity 1 Dependent. The helper does all the effort to complete an activity 7 Patient refused to complete or attempt activity 9 The patient did not perform the activity before the current illness or injury 88 Not attempted due to Medical conditions or safety concerns Scootin Sit to/from Stand: 5 Sit to Stand (QC): 5 Weight Bearing Right Lower Extremity: Right Full Weight Bearing Left Lower Extremity: Left Full Weight Bearing Exercises Seated Therapy Exercises: Ankle pumps, Long arc quads, Hip flexion, Kicking activity Treatments Pt transfers from W/C to recliner using SPT. Pt completes Seated EX and discusses pt ed items such as AE, transfers & bed mobility, pt's progress vs stroke progress as well as any changes over the last week to report at [facility]. Pt is resting in recliner at end of tx with all needs met. Assessment Current Status: Good Progress Pt has shown improvement with independence and safety of transfers and ambulation. PT Short Term Goals Short Term Goals Time Frame: Dec 11, 2018 Gait (FIM): 1 Gait Distance Comment: 10' Gait Level of Assist: 3 Gait Assistive Device: Walker Robby Wheelchair Distance: 150' PT Senior Living Goals In Flight Technician Goals PT In Flight Technician Goals Time Frame: Dec 25, 2018 Transfers (B,C,W/C) (FIM): 4 Sit to Lying (QC): 3 Lying-Sitting on Side/Bed(QC): 3 Sit to Stand (QC): 3 Rollin Roll Left to Right (QC): 3 Chair/Axl-dx-Kclxn Xfer(QC): 3 Car Transfer (QC): 3 Gait (FIM): 2 Distance: 50' Walk 10 feet (QC): 3 Walk 10ft-Uneven Surface(QC): 3 Walk 50ft with 2 Turns (QC): 3 Walk 150 ft (QC): 3 Gait Level of Assist: 4 Gait Assistive Device: Walker Robby Stairs (FIM): 1 # of Steps: 1 1 Step (curb) (QC): 3 Stairs Level Of Assist: 4 PT Plan Problem List Problem List: Activity Tolerance, Functional Strength, Gait Treatment/Plan Treatment Plan: Continue Plan of Care Treatment Plan: Bed Mobility, Concurrent Therapy, Education, Functional Activity Angelita, Functional Strength, Group Therapy, Gait, Safety, Therapeutic Exercise, Transfers Treatment Duration: Dec 25, 2018 Frequency: At least 5 of 7 days/Wk (IRF) Estimated Hrs Per Day: 1.5 hours per day Patient and/or Family Agrees t: Yes Safety Risks/Education Patient Education: Transfer Techniques, Correct Positioning, Safety Issues Teaching Recipient: Patient Teaching Methods: Discussion Response to Teaching: Verbalize Understanding Time/GCodes Time In: 1425 Time Out: 1455 Total Billed Treatment Time: 30 Total Billed Treatment 1, FA (15m) & EX (15m) G Codes Necessary: MONY Lake PTA Dec 18, 2018 15:09
[2018-12-18 16:02] VITALS: BP 142/83
[2018-12-18] MEDS: ATORVASTATIN 20 MG (LIPITOR) TABLET PO SCH (21:41)
[2018-12-19 05:11] VITALS: BP 136/78
[2018-12-19] MEDS: LEVOTHYROXINE 50 MCG (LEVOTHROID) TAB PO SCH (05:11)
[2018-12-19] MEDS: HYDROcodone/APAP 5 MG/325 MG (LORTAB) TAB PO PRN (05:11)
[2018-12-19] MEDS: inSUlin ASPART (NovoLOG) 1 UNIT/0.01 ML (CHARGE PER UNIT) SC SCH ×4 (05:12→20:49)
--- NOTE | 2018-12-19 08:26 | PM&R Progress Note ---
Subjective HPI/CC On Admission Date Seen by Provider: Dec 19, 2018 Time Seen by Provider: 08:15 Chief complaint: Stroke with left sided weakness and dysphasia. HPI: This is a 68yoWF who moved to [place] in 2011 but remained a patient of TERESA Monroe doctor who presented with left sided weakness diagnosed with a stroke (out of tPA window of candidacy) and has been actively pursuing rehab since that time. At this current time she is still have dysphasia and difficulty speaking but her thought process is intact and she will need intensive therapy for the left sided weakness. Curry catheter has been maintained and that will be discontinued. Bowels are moving she reports after meds were given. I reviewed all of her home medication that included Celebrex and will maintain on Aspirin and low dose Statin therapy following a stroke per protocol. Pt is agreeable for inpatient rehab and intensive therapy to regain function following a devastating stroke with left sided weakness. She lives at home alone. 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 Pt does have chronic pain, fibromyalgia, and osteoarthritis that she struggles with on an ongoing basis. Subjective/Events-last exam Pt is motivated to get better. Is standby assist with transfers. Uses a vanesa-walker. Electrical stimulation gave rise to no improved range of motion. Toileting well. Showering on her own with someone there for safety. Speech therapy reports she is doing well and eating a regular diet. Her joints hurt and because of her obesity in addition to the left sided weakness precludes anything other than a usp or assisted living. Review of Systems Neurological: Weakness, Numbness, Incoordination Objective Exam Vital Signs Vital Signs Date Time Temp Pulse Resp B/P (MAP) Pulse Ox O2 Delivery O2 Flow Rate FiO2 12/19/18 08:51 Room Air 12/19/18 05:11 97.6 67 16 136/78 (97) 92 12/16/18 22:37 25.00 Capillary Refill : General Appearance: No Apparent Distress, WD/WN, Chronically ill, Obese HEENT: PERRL/EOMI, Normal ENT Inspection, Pharynx Normal, Moist Mucous Membranes Neck: Full Range of Motion, Normal Inspection, Non Tender, Supple Respiratory: Chest Non Tender, Lungs Clear, Normal Breath Sounds, No Accessory Muscle Use, No Respiratory Distress Cardiovascular: Regular Rate, Rhythm, No Edema, No Gallop, No JVD, No Murmur Gastrointestinal: Normal Bowel Sounds, No Organomegaly, No Pulsatile Mass, Non Tender, Soft Back: Normal Inspection, No CVA Tenderness, No Vertebral Tenderness Extremity: Normal Capillary Refill, Normal Inspection, Normal Range of Motion ( except left upper ad lower extremity weakness), Non Tender, No Calf Tenderness, No Pedal Edema Neurologic/Psychiatric: Alert, Oriented x3, Normal Mood/Affect, Facial Droop ( left), Motor Weakness (left sided weakness, left facial droop, thickened speech but today, 12/10/18 left hand side show entertainer improved and 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 weakness HTN HTG HLP Hypothyroidism STEPH on CPAP Hypokalemia chronic and allergic to supplement DM OOC DVT PPx with Lovenox Plan: Intensive PT/OT/Speech therapies Monitor bowel function Fall risk management Actos tolerated Continue statin and therapies Wants to return home to live independently CPAP use (1) Acute right SIGNAL MAINTAINER HELPER stroke (2) DVT prophylaxis (3) Hyperglyceridemia (4) Hypokalemia (5) Weakness of left side of body (6) Difficulty speaking (7) Dysphagia (8) STEPH on CPAP (9) Non-insulin dependent type 2 diabetes mellitus (10) Essential (primary) hypertension (11) Obesity (12) Hypothyroidism Clinical Quality Measures DVT/VTE Risk/Contraindication: Risk Factor Score Per Nursin RFS Level Per Nursing on Admit: 4+=Very High LOREN MILLER DO Dec 19, 2018 08:26
[2018-12-19] MEDS: ASPIRIN E.C. 81 MG (ECOTRIN) TAB PO SCH (09:55)
[2018-12-19] MEDS: TRIAMTERENE/HCTZ 75-50 (MAXZIDE,DYAZIDE) TABLET PO SCH (09:55)
[2018-12-19] MEDS: PIOGLITAZONE 30MG (ACTOS) TAB PO SCH ×2 (09:55→20:49)
[2018-12-19] MEDS: CELECOXIB 100 MG (CeleBREX) CAP PO SCH ×2 (09:55→20:49)
[2018-12-19] MEDS: PANTOPRAZOLE 20 MG TABLET (PROTONIX) PO SCH (09:56)
[2018-12-19] MEDS: ENOXAPARIN 40 MG/0.4 ML (LOVENOX) SYR SC SCH ×2 (09:56→20:49)
[2018-12-19] MEDS: amLODIPine 10 MG (NORVASC) TAB PO SCH (09:56)
--- NOTE | 2018-12-19 10:02 | Physical Therapy Daily Note ---
PT Daily Note-Current Subjective Pt sitting at EOB with Nurse present. Pt reports needing to use restroom. Pt agrees to PT. Pain Numeric Pain Scale: 5-Moderate Pain Location: Right, Left Location Body Site: Shoulder Pain Description: Ache Mental Status Patient Orientation: Person, Place, Time, Situation Transfers Therapy Code Descriptions/Definitions Functional [place] Measure: 0=Not Assessed/NA 4=Minimal Assistance 1=Total Assistance 5=Supervision or Setup 2=Maximal Assistance 6=Modified [place] 3=Moderate Assistance 7=Complete [place] Therapy Quality Codes: 6 Independent with activity with or without an assistive device 5 Patient requires set up or clean up by helper. Patient completes activity by themselves 4 Supervision or touching assist (CGA). [place] provide cues , steadying assist 3 The helper provides less than half the effort to complete the activity 2 The helper provides more than half the effort to complete the activity 1 Dependent. The helper does all the effort to complete an activity 7 Patient refused to complete or attempt activity 9 The patient did not perform the activity before the current illness or injury 88 Not attempted due to Medical conditions or safety concerns Scootin Sit to/from Stand: 5 Sit to Stand (QC): 5 Weight Bearing Right Lower Extremity: Right Full Weight Bearing Left Lower Extremity: Left Full Weight Bearing Gait Training Does the Patient Walk?: Yes Distance (FIM): 3=150 ft Distance: 75', 75' Walk 10 feet (QC): 4 Walk 50 ft with 2 Turns(QC): 4 Walk 150 ft (QC): 4 Gait Level of Assist: 4 Gait Assistive Device: Walker Robby Pt walks with slow amadeo, decreased DF although pt can picking belt operator foot to advance. Wheelchair Training Does the Pt Use a Wheelchair?: Yes Wheelchair Distance: 3=150 ft Distance: 150' Wheelchair Level of Assist: 5 Wheel 50 ft with 2 turns (QC): 5 Wheel 150 ft (QC): 5 Type of Wheelchair: Manual Pt uses B feet & RUE to propel self. Exercises NuStep Minutes: 15 NuStep Workload: 5 Treatments Pt transfers from bed and uses restroom before leaving for tx. Pt uses NuStep for 15m at WL 5 with L arm attachment to aid with die barber. Pt ambulates in hallway with rest break during for knees buckling. Pt returns to to room at end of tx with all needs met. Assessment Current Status: Good Progress Pt continues to improve with transfers and increase distance ambulating. PT Short Term Goals Short Term Goals Time Frame: Dec 11, 2018 Gait (FIM): 1 Gait Distance Comment: 10' Gait Level of Assist: 3 Gait Assistive Device: Walker Robby Wheelchair Distance: 150' PT Pile Driver Operator Goals Fpc Goals PT Fpc Goals Time Frame: Dec 25, 2018 Transfers (B,C,W/C) (FIM): 4 Sit to Lying (QC): 3 Lying-Sitting on Side/Bed(QC): 3 Sit to Stand (QC): 3 Rollin Roll Left to Right (QC): 3 Chair/Pwv-dm-Ffqgq Xfer(QC): 3 Car Transfer (QC): 3 Gait (FIM): 2 Distance: 50' Walk 10 feet (QC): 3 Walk 10ft-Uneven Surface(QC): 3 Walk 50ft with 2 Turns (QC): 3 Walk 150 ft (QC): 3 Gait Level of Assist: 4 Gait Assistive Device: Walker Robby Stairs (FIM): 1 # of Steps: 1 1 Step (curb) (QC): 3 Stairs Level Of Assist: 4 PT Plan Problem List Problem List: Activity Tolerance, Functional Strength, Gait Treatment/Plan Treatment Plan: Continue Plan of Care Treatment Plan: Bed Mobility, Concurrent Therapy, Education, Functional Activity Angelita, Functional Strength, Group Therapy, Gait, Safety, Therapeutic Exercise, Transfers Treatment Duration: Dec 25, 2018 Frequency: At least 5 of 7 days/Wk (IRF) Estimated Hrs Per Day: 1.5 hours per day Patient and/or Family Agrees t: Yes Safety Risks/Education Patient Education: Gait Training, Transfer Techniques, Correct Positioning, Safety Issues Teaching Recipient: Patient Teaching Methods: Discussion Response to Teaching: Verbalize Understanding Time/GCodes Time In: 800 Time Out: 900 Total Billed Treatment Time: 60 Total Billed Treatment 1, FA x2 (25m), GT (20m) & EX (15m) G Codes Necessary: MONY Lake SENIOR C DEVELOPER Dec 19, 2018 10:02
--- NOTE | 2018-12-19 10:18 | Speech Therapy Daily Note ---
Speech Daily Progress Note Subjective Date Seen by Provider: Dec 19, 2018 Time Seen by Provider: 00:30 Patient was happy to report she's doing a lot more on her own now. Objective Patient completed oral intake with utilization of compensatory strategies at 90 % given minimal verbal cues. Assessment Assessment Current Status: Good Progress Treatment Plan Continue Plan of Care Communication Comprehension: 7 Expression: 7 Social Cognition Social Interaction: 7 Problem Solvin Memory: 7 Speech Short Term Goals Short Term Goals Short Term Goals 1) Patient will utilize compensatory strategies as trained for safe oral intake of the least restrictive diet with 90% or greater. 2) Patient will demonstrate safe oral intake of the least restrictive diet level with 90% or greater. Speech Fci Goals Product Safety Coordinator Goals Patient will maintain adequate nutrition/hydration via safe effective swallow function. Speech-Plan Patient/Family Goals Patient/Family Goals: Patient plans to return home alone with family support post rehab. Treatment Plan Speech Therapy Treatment Plan: Continue Plan of Care Patient is making good progress as a result of skilled therapy. Treatment Duration: Dec 21, 2018 Frequency: 4 times per week Estimated Hrs Per Day: .5 hour per day Rehab Potential: Good Barriers to Learning: Patient has a new onset CVA Pt/Family Agrees to Plan: Yes Safety Risks/Education Teaching Recipient: Patient Teaching Methods: Discussion Response to Teaching: Verbalize Understanding Education Topics Provided: Continued safety of oral intake. Time Speech Therapy Time In: 09:30 Speech Therapy Time Out: 10:00 Total Billed Time: 30 Billed Treatment Time ErikaFEDERICO BETHANIA ST Dec 19, 2018 10:18
[2018-12-19] MEDS: TROLAMINE (ASPERCREME) 10% CR 90 GM TUBE TOP SCH ×2 (10:45→19:26)
[2018-12-19] MEDS: DOCUSATE SODIUM 100 MG (COLACE) CAP PO SCH ×2 (10:45→19:26)
[2018-12-19] MEDS: ACETAMINOPHEN 500 MG TAB (TYLENOL) PO PRN ×2 (11:20→22:42)
--- NOTE | 2018-12-19 12:53 | Occupational Ther Daily Note ---
OT Current Status-Daily Note Subjective No pain reported. Appearance Pt. is up in chair. Agrees to OT. Mental Status/Objective Patient Orientation: Person, Place, Time, Situation Therapy Code Descriptions/Definitions Functional [place] Measure: 0=Not Assessed/NA 4=Minimal Assistance 1=Total Assistance 5=Supervision or Setup 2=Maximal Assistance 6=Modified [place] 3=Moderate Assistance 7=Complete [place] ADL-Treatment Therapy Code Descriptions/Definitions Functional [place] Measure: 0=Not Assessed/NA 4=Minimal Assistance 1=Total Assistance 5=Supervision or Setup 2=Maximal Assistance 6=Modified [place] 3=Moderate Assistance 7=Complete [place] Therapy Quality Codes: 6 Independent with activity with or without an assistive device 5 Patient requires set up or clean up by helper. Patient completes activity by themselves 4 Supervision or touching assist (CGA). [place] provide cues , steadying assist 3 The helper provides less than half the effort to complete the activity 2 The helper provides more than half the effort to complete the activity 1 Dependent. The helper does all the effort to complete an activity 7 Patient refused to complete or attempt activity 9 The patient did not perform the activity before the current illness or injury 88 Not attempted due to Medical conditions or safety concerns Transfers (B, C, W/C) (FIM): 4 (CGA at times. However, pt. is improving to SBA.) Pt. declined showering as she wanted to work on her left UE. Pt. already dressed. Transferred to wheelchair and OT took pt. to therapy gym. Pt. transferred to mat in room in supine position. OT provided gentle pectoral stretch to left UE, as well as scapular facilitation and glide, and shoulder flexion. Pt. tolerated this well. OT facilitated bicep flexion, wrist flexion/ extension, and finger flexion/extension. At times with muscle tapping, and other times without. Pt. able to actively engage biceps, as well as slight wrist in extension/flexion. Pt. tolerated 8 niraj-amps x 8 minutes to wrist extensors, with no movement noted. Pt. also able to tolerate 5 niraj-amps to left fingers in flexion. Able to engage flexion with this. Pt. transferred to side of mat and worked on side lying, weight bearing, as well as pelvic tilts with core engagement. Pt. educated on purpose of engaging core, dissociating movements, and putting head and body in multiple planes. Pt. verbalizes understanding and tolerated this well. Pt. taken back to room. Pt. transferred to toilet and given call cord. All needs met. Education OT Patient Education: Correct positioning, Modified ADL techniques, Progress toward Goal/Update tx plan, Purpose of tx/functional activities, Reviewed precautions, Rehab process, Transfer techniques Teaching Recipient: Patient Teaching Methods: Demonstration, Discussion Response to Teaching: Verbalize Understanding, Return Demonstration OT Short Term Goals Short Term Goals Time Frame: Dec 11, 2018 Upper Body Dressing(FIM): 3 Lower Body Dressing(FIM): 3 Toileting(FIM): 3 Toilet/Commode Transfer(FIM): 3 Additional Short Term Goals: 1-Demonstrate ADL Tasks, 2-Verbalize Understanding , 3-ImproveStrength/Angelita 1=Demonstrate adherence to instructed precautions during ADL tasks. 2=Patient will verbalize/demonstrate understanding of assistive devices/ modifications for ADL. 3=Patient will improve strength/tolerance for activity to enable patient to perform ADL's. OT History Professor Goals Jail Goals Time Frame: Dec 28, 2018 Eating (FIM): 6 Eating (QC): 6 Groomin Oral Hygiene (QC): 6 Bathing(FIM): 4 Shower/Bathe Self (QC): 4 Upper Body Dressing(FIM): 5 Upper Body Dressing (QC): 5 Lower Body Dressing(FIM): 5 Lower Body Dressing (QC): 5 On/Off Footwear (QC): 5 Toileting(FIM): 5 Toileting Hygiene (QC): 5 Toilet/Commode Transfer(FIM): 5 Toilet/Commode Transfer (QC): 5 Shower Transfer(FIM): 5 Additional Goals: 1-Demonstrate ADL Tasks, 2-Verbalize Understanding, 3- ImproveStrength/Angelita 1=Demonstrate adherence to instructed precautions during ADL tasks. 2=Patient will verbalize/demonstrate understanding of assistive devices/ modifications for ADL. 3=Patient will improve strength/tolerance for activity to enable patient to perform ADL's. OT Education/Plan Problem List/Assessment Assessment: Decreased Activ Tolerance, Decreased UE Strength, Impaired Coordination, Impaired I ADL's, Impaired Self-Care Skills, Restricted Funct UE ROM Discharge Recommendations Plan/Recommendations: Continue POC Therapy D/C Recommendations: Home w/ Family Support, Occupational Therapy Home Care, Scheduled Assistance Treatment Plan/Plan of Care Treatment,Training & Education: Yes Patient would benefit from OT for education, treatment and training to promote independence in ADL's, mobility, safety and/or upper extremity function for ADL' s. Plan of Care: ADL Retraining, Functional Mobility, Group Exercise/Act as Ind, UE Funct Exercise/Act, UE Neuromus Re-Ed/Coord Treatment Duration: Dec 28, 2018 Frequency: At least 5 of 7 days/Wk (IRF) Estimated Hrs Per Day: 1.5 hours per day Agreement: Yes Rehab Potential: Good Time/GCodes Start Time: 10:15 Stop Time: 11:15 Total Time Billed (hr/min): 60 Billed Treatment Time 1, FA x 30minutes, NM x 30minutes CHELI LOPEZ OT Dec 19, 2018 12:52
--- NOTE | 2018-12-19 14:01 | NUR ---
Director Of Student Financial Services follow visit, pt said she feels improvement in her arm and is continuing to trust in God.
[2018-12-19] MEDS ORDERED: DICLOFENAC 1% GEL 100 GM (VOLTAREN) TUBE TOP PRN (14:15)
--- NOTE | 2018-12-19 15:50 | Therapy Group Daily Note ---
Therapy Daily Group Note Patient Education Topic Home Safety, Fall Prevention Exercises LE Seated Exercise, UE Exercise Session Ratio (pt:therapist): 4:1 Goal of Session: Education on ARU Expectations, Home Safety Strategies, UE/LE Strengthing, Safety with Transfers Goal Met for this Session: Yes Pt Benefit of Group: Contributions to Others, F/U Use of Strategies @Home, Increased Functional Safety, Increased Functional Strength, Recognition of Peers , Socialization Other/Notes Pt propelled self to PT Group in W/C at [facility]. Group consists of Introduction ( Name, Where Living & Favorite thing to do in Spring), Socialization, ARU Expectations, Seated LE/UE EX, Strategies for Home Safety & Fall Prevention. Pt actively and appropriately listens to peers during Group. Pt appropriately interacts with peers during discussion of Fall Prevention & Home Safety. Pt is able to complete Seated LE EX as well as RUE EX but had to assist self with LUE. Pt propelled self back to room and transfers back to recliner to rest. Pt all needs met. Start Time: 13:00 Stop Time: 14:15 Total Billed Treatment Time: 75 Total Billed Treatment 1, GRP (75m) MONY SLOAN INSPECTOR RUBBER STAMP DIE Dec 19, 2018 15:50
[2018-12-19] MEDS: ATORVASTATIN 20 MG (LIPITOR) TABLET PO SCH (20:49)
[2018-12-20] MEDS: HYDROcodone/APAP 5 MG/325 MG (LORTAB) TAB PO PRN (05:49)
[2018-12-20] MEDS: LEVOTHYROXINE 50 MCG (LEVOTHROID) TAB PO SCH (05:49)
[2018-12-20] MEDS: inSUlin ASPART (NovoLOG) 1 UNIT/0.01 ML (CHARGE PER UNIT) SC SCH ×4 (05:57→22:24)
[2018-12-20 06:07] VITALS: BP 145/70
--- NOTE | 2018-12-20 07:58 | PM&R Progress Note ---
Subjective HPI/CC On Admission Date Seen by Provider: Dec 20, 2018 Time Seen by Provider: 08:00 Chief complaint: Stroke with left sided weakness and dysphasia. HPI: This is a 68yoWF who moved to [place] in 2011 but remained a patient of TERESA Monroe doctor who presented with left sided weakness diagnosed with a stroke (out of tPA window of candidacy) and has been actively pursuing rehab since that time. At this current time she is still have dysphasia and difficulty speaking but her thought process is intact and she will need intensive therapy for the left sided weakness. Curry catheter has been maintained and that will be discontinued. Bowels are moving she reports after meds were given. I reviewed all of her home medication that included Celebrex and will maintain on Aspirin and low dose Statin therapy following a stroke per protocol. Pt is agreeable for inpatient rehab and intensive therapy to regain function following a devastating stroke with left sided weakness. She lives at home alone. 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 Pt does have chronic pain, fibromyalgia, and osteoarthritis that she struggles with on an ongoing basis. Subjective/Events-last exam Blood sugar 195 this morning Pt doing well Left leg is functioning a little better Left hand has regained some motion Bowels are moving Ready for her shower Overall motivated to get better Awaiting her plan for assisted living or intermediate at time of DC Review of Systems General: Fatigue Neurological: Weakness, Numbness, Incoordination Objective Exam Vital Signs Vital Signs Date Time Temp Pulse Resp B/P (MAP) Pulse Ox O2 Delivery O2 Flow Rate FiO2 12/20/18 15:56 96.8 60 16 138/62 (87) 93 Room Air 12/16/18 22:37 25.00 Capillary Refill : General Appearance: No Apparent Distress, WD/WN, Chronically ill, Obese HEENT: PERRL/EOMI, Normal ENT Inspection, Pharynx Normal, Moist Mucous Membranes Neck: Full Range of Motion, Normal Inspection, Non Tender, Supple Respiratory: Chest Non Tender, Lungs Clear, Normal Breath Sounds, No Accessory Muscle Use, No Respiratory Distress Cardiovascular: Regular Rate, Rhythm, No Edema, No Gallop, No JVD, No Murmur Gastrointestinal: Normal Bowel Sounds, No Organomegaly, No Pulsatile Mass, Non Tender, Soft Back: Normal Inspection, No CVA Tenderness, No Vertebral Tenderness Extremity: Normal Capillary Refill, Normal Inspection, Normal Range of Motion ( except left upper ad lower extremity weakness), Non Tender, No Calf Tenderness, No Pedal Edema Neurologic/Psychiatric: Alert, Oriented x3, Normal Mood/Affect, Facial Droop ( left), Motor Weakness (left sided weakness, left facial droop, thickened speech but today, 12/10/18 left hand program control analyst improved and 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 stroke with left sided weakness HTN HTG HLP Hypothyroidism STEPH on CPAP Hypokalemia chronic and allergic to supplement DM OOC DVT PPx with Lovenox Plan: Intensive PT/OT/Speech therapies Monitor bowel function Fall risk management Actos tolerated Continue statin and therapies Wants to return home to live independently but unsure of the feasibility of that will be CPAP use (1) Acute right SOFTWARE COMPUTER SPECIALIST stroke (2) DVT prophylaxis (3) Hyperglyceridemia (4) Hypokalemia (5) Weakness of left side of body (6) Difficulty speaking (7) Dysphagia (8) STEPH on CPAP (9) Non-insulin dependent type 2 diabetes mellitus (10) Essential (primary) hypertension (11) Obesity (12) Hypothyroidism Clinical Quality Measures DVT/VTE Risk/Contraindication: Risk Factor Score Per Nursin RFS Level Per Nursing on Admit: 4+=Very High LOREN MILLER DO Dec 20, 2018 07:58
[2018-12-20] MEDS: CELECOXIB 100 MG (CeleBREX) CAP PO SCH ×2 (08:46→22:22)
[2018-12-20] MEDS: ASPIRIN E.C. 81 MG (ECOTRIN) TAB PO SCH (08:46)
[2018-12-20] MEDS: PIOGLITAZONE 30MG (ACTOS) TAB PO SCH ×2 (08:46→22:23)
[2018-12-20] MEDS: PANTOPRAZOLE 20 MG TABLET (PROTONIX) PO SCH (08:46)
[2018-12-20] MEDS: amLODIPine 10 MG (NORVASC) TAB PO SCH (08:46)
[2018-12-20] MEDS: TRIAMTERENE/HCTZ 75-50 (MAXZIDE,DYAZIDE) TABLET PO SCH (08:47)
[2018-12-20] MEDS: ENOXAPARIN 40 MG/0.4 ML (LOVENOX) SYR SC SCH ×2 (08:47→22:24)
[2018-12-20] MEDS: DOCUSATE SODIUM 100 MG (COLACE) CAP PO SCH ×2 (08:47→22:23)
[2018-12-20] MEDS: TROLAMINE (ASPERCREME) 10% CR 90 GM TUBE TOP SCH ×2 (08:48→22:25)
--- NOTE | 2018-12-20 10:09 | NUR ---
PT EATING WELL, 100% MEALS. WEIGHT STABLE. DIET ADVANCED TO REGULAR. INTAKE MEETING NEED AT THIS TIME, BUT RECOMMEND CHANGE TO 60 GRAM CHO DIET TO BETTER CONTROL GLUCOSE LEVELS.
--- NOTE | 2018-12-20 10:26 | Speech Therapy Daily Note ---
Speech Daily Progress Note Subjective Date Seen by Provider: Dec 20, 2018 Time Seen by Provider: 00:30 Patient was resting in her recliner this am. Objective Patient consumed her morning meal with utilization of compensatory strategies as trained at 90% without cues. Communication Comprehension: 7 Expression: 7 Social Cognition Social Interaction: 7 Problem Solvin Memory: 7 Speech Short Term Goals Short Term Goals Short Term Goals 1) Patient will utilize compensatory strategies as trained for safe oral intake of the least restrictive diet with 90% or greater. 2) Patient will demonstrate safe oral intake of the least restrictive diet level with 90% or greater. Speech Correction Goals Haul Driver Goals Patient will maintain adequate nutrition/hydration via safe effective swallow function. Speech-Plan Patient/Family Goals Patient/Family Goals: Patient plans to return home with family support post rehab. Treatment Plan Speech Therapy Treatment Plan: Continue Plan of Care Patient has progressed well as a result of skilled ST services. Treatment Duration: Dec 28, 2018 Frequency: 4 times per week Estimated Hrs Per Day: .5 hour per day Rehab Potential: Good Barriers to Learning: New onset CVA Pt/Family Agrees to Plan: Yes Safety Risks/Education Teaching Recipient: Patient Teaching Methods: Discussion Response to Teaching: Verbalize Understanding Education Topics Provided: Continued safety with oral intake. Time Speech Therapy Time In: 09:30 Speech Therapy Time Out: 10:00 Total Billed Time: 30 Billed Treatment Time FEDERICO James [facility] Dec 20, 2018 10:26
--- NOTE | 2018-12-20 10:58 | Physical Therapy Daily Note ---
PT Daily Note-Current Subjective Pt sitting in recliner upon arrival. Pt agrees to PT. Pain Numeric Pain Scale: 6 Location: Lower Location Body Site: Back Pain Description: Ache, Tightness Mental Status Patient Orientation: Person, Place, Time, Situation Transfers Therapy Code Descriptions/Definitions Functional [place] Measure: 0=Not Assessed/NA 4=Minimal Assistance 1=Total Assistance 5=Supervision or Setup 2=Maximal Assistance 6=Modified [place] 3=Moderate Assistance 7=Complete [place] Therapy Quality Codes: 6 Independent with activity with or without an assistive device 5 Patient requires set up or clean up by helper. Patient completes activity by themselves 4 Supervision or touching assist (CGA). [place] provide cues , steadying assist 3 The helper provides less than half the effort to complete the activity 2 The helper provides more than half the effort to complete the activity 1 Dependent. The helper does all the effort to complete an activity 7 Patient refused to complete or attempt activity 9 The patient did not perform the activity before the current illness or injury 88 Not attempted due to Medical conditions or safety concerns Scootin Sit to/from Stand: 5 Sit to Stand (QC): 5 Weight Bearing Right Lower Extremity: Right Full Weight Bearing Left Lower Extremity: Left Full Weight Bearing Gait Training Does the Patient Walk?: Yes Distance (FIM): 3=150 ft Distance: 150' Walk 10 feet (QC): 4 Walk 50 ft with 2 Turns(QC): 4 Walk 150 ft (QC): 4 Gait Level of Assist: 4 Gait Persons Needed: 1 Gait Assistive Device: Walker Robby Pt demonstrates difficulty with DF so pt swings L leg through when advancing. Wheelchair Training Does the Pt Use a Wheelchair?: Yes Wheelchair Distance: 3=150 ft Distance: 150' Wheelchair Level of Assist: 6 Wheel 50 ft with 2 turns (QC): 6 Wheel 150 ft (QC): 6 Type of Wheelchair: Manual Exercises NuStep Minutes: 15 NuStep Workload: 5 Treatments Pt transfers from recliner to standing using Robby and uses restroom. Pt transfers to W/C after toileting due to fatigue. Pt propels W/C to Therapy Gym then uses NuStep for 15m at WL 5. Pt transfers back to W/C. Pt ambulates in hallway using Robby. Pt returns to recliner to rest with all needs met. Assessment Current Status: Good Progress Pt has improved strength, mobility and transfers. PT Short Term Goals Short Term Goals Time Frame: Dec 11, 2018 Gait (FIM): 1 Gait Distance Comment: 10' Gait Level of Assist: 3 Gait Assistive Device: Walker Robby Wheelchair Distance: 150' PT Community Resource Consultant Goals Jail Goals PT Community Resource Consultant Goals Time Frame: Dec 25, 2018 Transfers (B,C,W/C) (FIM): 4 Sit to Lying (QC): 3 Lying-Sitting on Side/Bed(QC): 3 Sit to Stand (QC): 3 Rollin Roll Left to Right (QC): 3 Chair/Qug-ft-Uobgj Xfer(QC): 3 Car Transfer (QC): 3 Gait (FIM): 2 Distance: 50' Walk 10 feet (QC): 3 Walk 10ft-Uneven Surface(QC): 3 Walk 50ft with 2 Turns (QC): 3 Walk 150 ft (QC): 3 Gait Level of Assist: 4 Gait Assistive Device: Walker Robby Stairs (FIM): 1 # of Steps: 1 1 Step (curb) (QC): 3 Stairs Level Of Assist: 4 PT Plan Problem List Problem List: Activity Tolerance, Functional Strength, Gait, Transfer Treatment/Plan Treatment Plan: Continue Plan of Care Treatment Plan: Bed Mobility, Concurrent Therapy, Education, Functional Activity Angelita, Functional Strength, Group Therapy, Gait, Safety, Therapeutic Exercise, Transfers Treatment Duration: Dec 25, 2018 Frequency: At least 5 of 7 days/Wk (IRF) Estimated Hrs Per Day: 1.5 hours per day Patient and/or Family Agrees t: Yes Safety Risks/Education Patient Education: Gait Training, Transfer Techniques, Correct Positioning, Safety Issues Teaching Recipient: Patient Teaching Methods: Discussion Response to Teaching: Verbalize Understanding Time/GCodes Time In: 800 Time Out: 900 Total Billed Treatment Time: 60 Total Billed Treatment 1, FA (15m), GT x2 (25m) & EX (20m) G Codes Necessary: MONY [place] GRAIN LOADER Dec 20, 2018 10:58
--- NOTE | 2018-12-20 11:06 | NUR ---
NEIGHBORHOOD PLANNER met with patient to review team conference summary. As patient continues to require standby assist for transfers and ambulation, completing 75 feet of ambulation with hemiwalker, mod assist with OT skills due to slow return of function in left upper extremity, team has recommended patient be reevaluate at next team conference on 12/26. Throughout the next week patient will improve with activity tolerance, balance training, strength training, gait and ADLs. Patient is agreeable to this option. To anticipate discharge needs, NEIGHBORHOOD PLANNER inquired about patient's financial ability to pay for private duty care once returning home for homemaker assistance and bathing assistance. Patient believes this is an option for her once discharged. NEIGHBORHOOD PLANNER will continue to follow for additional discharge needs.
[2018-12-20] MEDS: ACETAMINOPHEN 500 MG TAB (TYLENOL) PO PRN ×2 (13:49→22:35)
--- NOTE | 2018-12-20 15:17 | Occupational Ther Daily Note ---
OT Current Status-Daily Note Subjective No pain reported. Appearance Pt. up in chair. Agrees to shower and work with OT. Mental Status/Objective Patient Orientation: Person, Place, Time, Situation Therapy Code Descriptions/Definitions Functional [place] Measure: 0=Not Assessed/NA 4=Minimal Assistance 1=Total Assistance 5=Supervision or Setup 2=Maximal Assistance 6=Modified [place] 3=Moderate Assistance 7=Complete [place] ADL-Treatment Therapy Code Descriptions/Definitions Functional [place] Measure: 0=Not Assessed/NA 4=Minimal Assistance 1=Total Assistance 5=Supervision or Setup 2=Maximal Assistance 6=Modified [place] 3=Moderate Assistance 7=Complete [place] Therapy Quality Codes: 6 Independent with activity with or without an assistive device 5 Patient requires set up or clean up by helper. Patient completes activity by themselves 4 Supervision or touching assist (CGA). [place] provide cues , steadying assist 3 The helper provides less than half the effort to complete the activity 2 The helper provides more than half the effort to complete the activity 1 Dependent. The helper does all the effort to complete an activity 7 Patient refused to complete or attempt activity 9 The patient did not perform the activity before the current illness or injury 88 Not attempted due to Medical conditions or safety concerns Grooming (FIM): 5 (Set up at sink to brush hair and teeth.) Oral Hygiene (QC): 4 Bathing (FIM): 5 (SBA in shower. Pt. able to stand with grab bar and wash cari areas.) Shower/Bathe Self (QC): 4 Upper Body (FIM): 3 (Pt. required assistance with donning bra, but able to don shirt on own.) Upper Body Dressing (QC): 3 Lower Body Dressing (FIM): 3 (Pt. able to don underwear and pants over feet and partially over hips in stance. Required assist to don socks and shoes.) Lower Body Dressing (QC): 3 On/Off Footwear (QC): 2 Toileting (FIM): 5 Toileting Hygiene (QC): 4 Transfers (B, C, W/C) (FIM): 5 (SBA with transfers to and from wheelchair.) Toilet/Commode Transfer (FIM): 5 Toilet Transfer (QC): 4 Shower Transfer(FIM): 5 Other Treatment After ADLs, pt. able to self propel to therapy gym. Worked on fine motor coordination and strength. Utilized therapy beads and playing cards. Pt. attempted to reach with left UE but unable to do so. Does have increased biceps in left UE but fatigues quickly. Pt. able to use hand to stabilize items and fingers to fiber picker cards. Pt. taken back to room and transferred to chair with SBA. Pt. left with pack of playing cards to work on this on her own. Education OT Patient Education: Correct positioning, Exercise program, Modified ADL techniques, Progress toward Goal/Update tx plan, Purpose of tx/functional activities, Reviewed precautions, Rehab process, Transfer techniques, Use of adapted equipment, W/C management Teaching Recipient: Patient Teaching Methods: Demonstration, Discussion Response to Teaching: Verbalize Understanding, Return Demonstration OT Short Term Goals Short Term Goals Time Frame: Dec 11, 2018 Upper Body Dressing(FIM): 3 Lower Body Dressing(FIM): 3 Toileting(FIM): 3 Toilet/Commode Transfer(FIM): 3 Additional Short Term Goals: 1-Demonstrate ADL Tasks, 2-Verbalize Understanding , 3-ImproveStrength/Angelita 1=Demonstrate adherence to instructed precautions during ADL tasks. 2=Patient will verbalize/demonstrate understanding of assistive devices/ modifications for ADL. 3=Patient will improve strength/tolerance for activity to enable patient to perform ADL's. OT [facility] Goals Tone Artist Apprentice Goals Time Frame: Dec 28, 2018 Eating (FIM): 6 Eating (QC): 6 Groomin Oral Hygiene (QC): 6 Bathing(FIM): 4 Shower/Bathe Self (QC): 4 Upper Body Dressing(FIM): 5 Upper Body Dressing (QC): 5 Lower Body Dressing(FIM): 5 Lower Body Dressing (QC): 5 On/Off Footwear (QC): 5 Toileting(FIM): 5 Toileting Hygiene (QC): 5 Toilet/Commode Transfer(FIM): 5 Toilet/Commode Transfer (QC): 5 Shower Transfer(FIM): 5 Additional Goals: 1-Demonstrate ADL Tasks, 2-Verbalize Understanding, 3- ImproveStrength/Angelita 1=Demonstrate adherence to instructed precautions during ADL tasks. 2=Patient will verbalize/demonstrate understanding of assistive devices/ modifications for ADL. 3=Patient will improve strength/tolerance for activity to enable patient to perform ADL's. OT Education/Plan Problem List/Assessment Assessment: Decreased Activ Tolerance, Decreased UE Strength, Impaired Coordination, Impaired Funct Balance, Impaired I ADL's, Impaired Self-Care Skills, Restricted Funct UE ROM Discharge Recommendations Plan/Recommendations: Continue POC Therapy D/C Recommendations: Home w/ Family Support, Occupational Therapy Home Care, Scheduled Assistance Equpiment Recommendations-D/C: Hip Kit Treatment Plan/Plan of Care Treatment,Training & Education: Yes Patient would benefit from OT for education, treatment and training to promote independence in ADL's, mobility, safety and/or upper extremity function for ADL' s. Plan of Care: ADL Retraining, Functional Mobility, Group Exercise/Act as Ind, UE Funct Exercise/Act, UE Neuromus Re-Ed/Coord Treatment Duration: Dec 28, 2018 Frequency: At least 5 of 7 days/Wk (IRF) Estimated Hrs Per Day: 1.5 hours per day Agreement: Yes Rehab Potential: Good Time/GCodes Start Time: 10:50 Stop Time: 12:05 Total Time Billed (hr/min): 75 Billed Treatment Time 1, ADL x 45minutes, FA x 30minutes CHELI LOPEZ OT Dec 20, 2018 15:17
--- NOTE | 2018-12-20 15:40 | Physical Therapy Daily Note ---
PT Daily Note-Current Subjective Pt sitting in recliner upon arrival. Pt reports needing to use restroom and agrees to PT. Pain Numeric Pain Scale: 5-Moderate Pain Location: Lower Location Body Site: Back Pain Description: Ache Mental Status Patient Orientation: Person, Place, Time, Situation Transfers Therapy Code Descriptions/Definitions Functional [place] Measure: 0=Not Assessed/NA 4=Minimal Assistance 1=Total Assistance 5=Supervision or Setup 2=Maximal Assistance 6=Modified [place] 3=Moderate Assistance 7=Complete [place] Therapy Quality Codes: 6 Independent with activity with or without an assistive device 5 Patient requires set up or clean up by helper. Patient completes activity by themselves 4 Supervision or touching assist (CGA). [place] provide cues , steadying assist 3 The helper provides less than half the effort to complete the activity 2 The helper provides more than half the effort to complete the activity 1 Dependent. The helper does all the effort to complete an activity 7 Patient refused to complete or attempt activity 9 The patient did not perform the activity before the current illness or injury 88 Not attempted due to Medical conditions or safety concerns Scootin Supine to/from Sit: 4 Sit to/from Stand: 5 Sit to Lying (QC): 4 Sit to Stand (QC): 5 Weight Bearing Right Lower Extremity: Right Full Weight Bearing Left Lower Extremity: Left Full Weight Bearing Gait Training Does the Patient Walk?: Yes Distance (FIM): 1=up to 49 ft Distance: 30' Walk 10 feet (QC): 5 Gait Level of Assist: 5 Gait Persons Needed: 1 Gait Assistive Device: Walker Robby Exercises Supine Ex: Ankle pumps, Quad Set, Glut sets, Heel Slides, Hip abd/add Supine Reps: 15 Treatments Pt transfers from recliner to standing to use restroom. Pt then returns to bed and transfers to lay supine. Pt completes Supine Ex in bed with a couple of rest breaks. Pt resting in bed at end of tx with all needs met. Assessment Current Status: Good Progress Pt improves with transfers and mobility. PT Short Term Goals Short Term Goals Time Frame: Dec 11, 2018 Gait (FIM): 1 Gait Distance Comment: 10' Gait Level of Assist: 3 Gait Assistive Device: Walker Robby Wheelchair Distance: 150' PT Evaporator Supervisor Goals Evaporator Supervisor Goals PT Evaporator Supervisor Goals Time Frame: Dec 25, 2018 Transfers (B,C,W/C) (FIM): 4 Sit to Lying (QC): 3 Lying-Sitting on Side/Bed(QC): 3 Sit to Stand (QC): 3 Rollin Roll Left to Right (QC): 3 Chair/[id number]-Vdqwp Xfer(QC): 3 Car Transfer (QC): 3 Gait (FIM): 2 Distance: 50' Walk 10 feet (QC): 3 Walk 10ft-Uneven Surface(QC): 3 Walk 50ft with 2 Turns (QC): 3 Walk 150 ft (QC): 3 Gait Level of Assist: 4 Gait Assistive Device: Walker Robby Stairs (FIM): 1 # of Steps: 1 1 Step (curb) (QC): 3 Stairs Level Of Assist: 4 PT Plan Problem List Problem List: Activity Tolerance, Functional Strength, Safety, Balance Treatment/Plan Treatment Plan: Continue Plan of Care Treatment Plan: Bed Mobility, Concurrent Therapy, Education, Functional Activity Angelita, Functional Strength, Group Therapy, Gait, Safety, Therapeutic Exercise, Transfers Treatment Duration: Dec 25, 2018 Frequency: At least 5 of 7 days/Wk (IRF) Estimated Hrs Per Day: 1.5 hours per day Patient and/or Family Agrees t: Yes Safety Risks/Education Patient Education: Correct Positioning, Safety Issues Teaching Recipient: Patient Teaching Methods: Discussion Response to Teaching: Verbalize Understanding Time/GCodes Time In: 1300 Time Out: 1330 Total Billed Treatment Time: 30 Total Billed Treatment 1, FA (10m) & EX (20m) G Codes Necessary: MONY Lake METAL WORKER Dec 20, 2018 15:40
[2018-12-20 15:56] VITALS: BP 138/62
[2018-12-20] MEDS: ATORVASTATIN 20 MG (LIPITOR) TABLET PO SCH (22:22)
[2018-12-21] MEDS: inSUlin ASPART (NovoLOG) 1 UNIT/0.01 ML (CHARGE PER UNIT) SC SCH ×4 (05:25→21:32)
[2018-12-21] MEDS: HYDROcodone/APAP 5 MG/325 MG (LORTAB) TAB PO PRN (05:26)
[2018-12-21] MEDS: LEVOTHYROXINE 50 MCG (LEVOTHROID) TAB PO SCH (05:26)
[2018-12-21 05:28] VITALS: BP 124/63
--- NOTE | 2018-12-21 09:01 | PM&R Progress Note ---
Subjective HPI/CC On Admission Date Seen by Provider: Dec 21, 2018 Time Seen by Provider: 08:45 Chief complaint: Stroke with left sided weakness and dysphasia. HPI: This is a 68yoWF who moved to [place] in 2011 but remained a patient of TERESA Monroe doctor who presented with left sided weakness diagnosed with a stroke (out of tPA window of candidacy) and has been actively pursuing rehab since that time. At this current time she is still have dysphasia and difficulty speaking but her thought process is intact and she will need intensive therapy for the left sided weakness. Curry catheter has been maintained and that will be discontinued. Bowels are moving she reports after meds were given. I reviewed all of her home medication that included Celebrex and will maintain on Aspirin and low dose Statin therapy following a stroke per protocol. Pt is agreeable for inpatient rehab and intensive therapy to regain function following a devastating stroke with left sided weakness. She lives at home alone. 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 Pt does have chronic pain, fibromyalgia, and osteoarthritis that she struggles with on an ongoing basis. Subjective/Events-last exam Blood sugars reviewed Pt doing well overall Left leg is functioning a little better each day and it is subtle improvement Left hand has regained some motion also Bowels are moving well Ready for PT Overall motivated to get better Awaiting her plan for assisted living or senior living at time of DC Review of Systems Neurological: Weakness, Numbness, Incoordination Objective Exam Vital Signs Vital Signs Date Time Temp Pulse Resp B/P (MAP) Pulse Ox O2 Delivery O2 Flow Rate FiO2 12/21/18 09:00 Room Air 12/21/18 05:28 97.0 72 16 124/63 (83) 97 12/16/18 22:37 25.00 Capillary Refill : General Appearance: No Apparent Distress, WD/WN, Chronically ill, Obese HEENT: PERRL/EOMI, Normal ENT Inspection, Pharynx Normal, Moist Mucous Membranes Neck: Full Range of Motion, Normal Inspection, Non Tender, Supple Respiratory: Chest Non Tender, Lungs Clear, Normal Breath Sounds, No Accessory Muscle Use, No Respiratory Distress Cardiovascular: Regular Rate, Rhythm, No Edema, No Gallop, No JVD, No Murmur Gastrointestinal: Normal Bowel Sounds, No Organomegaly, No Pulsatile Mass, Non Tender, Soft Back: Normal Inspection, No CVA Tenderness, No Vertebral Tenderness Extremity: Normal Capillary Refill, Normal Inspection, Normal Range of Motion ( except left upper ad lower extremity weakness), Non Tender, No Calf Tenderness, No Pedal Edema Neurologic/Psychiatric: Alert, Oriented x3, Normal Mood/Affect, Facial Droop ( left), Motor Weakness (left sided weakness, left facial droop, thickened speech but today, 12/10/18 left hand large animal veterinarian improved and 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 PLANT OPERATOR stroke with left sided weakness HTN HTG HLP Hypothyroidism STEPH on CPAP Hypokalemia chronic and allergic to supplement DM OOC DVT PPx with Lovenox Plan: Intensive PT/OT/Speech therapies Monitor bowel function Fall risk management Actos tolerated Continue statin and therapies Wants to return home to live independently but unsure of the feasibility of that will be CPAP use (1) Acute right WATER PLANT OPERATOR stroke (2) DVT prophylaxis (3) Hyperglyceridemia (4) Hypokalemia (5) Weakness of left side of body (6) Difficulty speaking (7) Dysphagia (8) STEPH on CPAP (9) Non-insulin dependent type 2 diabetes mellitus (10) Essential (primary) hypertension (11) Obesity (12) Hypothyroidism Clinical Quality Measures DVT/VTE Risk/Contraindication: Risk Factor Score Per Nursin RFS Level Per Nursing on Admit: 4+=Very High LOREN MILLER DO Dec 21, 2018 09:01
[2018-12-21] MEDS: PIOGLITAZONE 30MG (ACTOS) TAB PO SCH ×2 (09:23→21:32)
[2018-12-21] MEDS: ENOXAPARIN 40 MG/0.4 ML (LOVENOX) SYR SC SCH ×2 (09:23→21:32)
[2018-12-21] MEDS: CELECOXIB 100 MG (CeleBREX) CAP PO SCH ×2 (09:23→21:32)
[2018-12-21] MEDS: TRIAMTERENE/HCTZ 75-50 (MAXZIDE,DYAZIDE) TABLET PO SCH (09:24)
[2018-12-21] MEDS: PANTOPRAZOLE 20 MG TABLET (PROTONIX) PO SCH (09:24)
[2018-12-21] MEDS: ASPIRIN E.C. 81 MG (ECOTRIN) TAB PO SCH (09:24)
[2018-12-21] MEDS: amLODIPine 10 MG (NORVASC) TAB PO SCH (09:24)
[2018-12-21] MEDS: DOCUSATE SODIUM 100 MG (COLACE) CAP PO SCH ×2 (09:24→21:32)
[2018-12-21] MEDS: TROLAMINE (ASPERCREME) 10% CR 90 GM TUBE TOP SCH ×2 (09:28→21:37)
--- NOTE | 2018-12-21 10:27 | Occupational Ther Daily Note ---
OT Current Status-Daily Note Subjective Pt alert, sitting in recliner. Pt agrees to therapy. Nrsg in room. Mental Status/Objective Patient Orientation: Person, Place, Time, Situation Therapy Code Descriptions/Definitions Functional [place] Measure: 0=Not Assessed/NA 4=Minimal Assistance 1=Total Assistance 5=Supervision or Setup 2=Maximal Assistance 6=Modified [place] 3=Moderate Assistance 7=Complete [place] ADL-Treatment Therapy Code Descriptions/Definitions Functional [place] Measure: 0=Not Assessed/NA 4=Minimal Assistance 1=Total Assistance 5=Supervision or Setup 2=Maximal Assistance 6=Modified [place] 3=Moderate Assistance 7=Complete [place] Therapy Quality Codes: 6 Independent with activity with or without an assistive device 5 Patient requires set up or clean up by helper. Patient completes activity by themselves 4 Supervision or touching assist (CGA). [place] provide cues , steadying assist 3 The helper provides less than half the effort to complete the activity 2 The helper provides more than half the effort to complete the activity 1 Dependent. The helper does all the effort to complete an activity 7 Patient refused to complete or attempt activity 9 The patient did not perform the activity before the current illness or injury 88 Not attempted due to Medical conditions or safety concerns Grooming (FIM): 6 (Sitting at sink, pt able complete by self.) Oral Hygiene (QC): 6 Bathing (FIM): 5 (Using grabbars, hand held shower, shower bench and long handle sponge pt able to complete with SBA. Pt holding onto grabbar in standing with L hand to stabilize self when cleansing buttocks/cari area.) Bathing Location: L Arm, R Arm, L Upper Leg, R Upper Leg, L Lower Leg ( including foot), R Lower Leg (including foot), Chest, Abdomen, Buttocks, Perineal Area Shower/Bathe Self (QC): 4 Upper Body (FIM): 4 (Pt dons/doffs shirt by self after set up. Assist to don bra.) Upper Body Dressing (QC): 3 Lower Body Dressing (FIM): 4 (Pt able to don/doff over legs and feet. Assist only to hike over L hip. CGA in standing for safety.) Lower Body Dressing (QC): 3 Toileting (FIM): 4 (Assist to hike over L hip. Cleanses self. Uses vanesa- walker, BSC and grabbars.) Toileting Hygiene (QC): 3 Toilet/Commode Transfer (FIM): 4 (CGA using vanesa-walker and grabbar.) Toilet Transfer (QC): 4 Shower Transfer(FIM): 4 (CGA using shower bench, grabbar and vanesa-walker.) Pt fatigued after shower. After therapy, pt sitting in recliner with call light /phone in reach. All needs met in room. OT Short Term Goals Short Term Goals Time Frame: Dec 11, 2018 Upper Body Dressing(FIM): 3 Lower Body Dressing(FIM): 3 Toileting(FIM): 3 Toilet/Commode Transfer(FIM): 3 Additional Short Term Goals: 1-Demonstrate ADL Tasks, 2-Verbalize Understanding , 3-ImproveStrength/Angelita 1=Demonstrate adherence to instructed precautions during ADL tasks. 2=Patient will verbalize/demonstrate understanding of assistive devices/ modifications for ADL. 3=Patient will improve strength/tolerance for activity to enable patient to perform ADL's. OT Air Breaker Operator Goals Group Home Goals Time Frame: Dec 28, 2018 Eating (FIM): 6 Eating (QC): 6 Groomin Oral Hygiene (QC): 6 Bathing(FIM): 4 Shower/Bathe Self (QC): 4 Upper Body Dressing(FIM): 5 Upper Body Dressing (QC): 5 Lower Body Dressing(FIM): 5 Lower Body Dressing (QC): 5 On/Off Footwear (QC): 5 Toileting(FIM): 5 Toileting Hygiene (QC): 5 Toilet/Commode Transfer(FIM): 5 Toilet/Commode Transfer (QC): 5 Shower Transfer(FIM): 5 Additional Goals: 1-Demonstrate ADL Tasks, 2-Verbalize Understanding, 3- ImproveStrength/Angelita 1=Demonstrate adherence to instructed precautions during ADL tasks. 2=Patient will verbalize/demonstrate understanding of assistive devices/ modifications for ADL. 3=Patient will improve strength/tolerance for activity to enable patient to perform ADL's. OT Education/Plan Problem List/Assessment Assessment: Decreased Activ Tolerance, Impaired Self-Care Skills, Restricted Funct UE ROM Discharge Recommendations Plan/Recommendations: Continue POC Treatment Plan/Plan of Care Patient would benefit from OT for education, treatment and training to promote independence in ADL's, mobility, safety and/or upper extremity function for ADL' s. Plan of Care: ADL Retraining, Functional Mobility, Group Exercise/Act as Ind, UE Funct Exercise/Act, UE Neuromus Re-Ed/Coord Treatment Duration: Dec 28, 2018 Frequency: At least 5 of 7 days/Wk (IRF) Estimated Hrs Per Day: 1.5 hours per day Agreement: Yes Rehab Potential: Good Time/GCodes Start Time: 09:15 Stop Time: 10:15 Total Time Billed (hr/min): 60 Billed Treatment Time 1 visit-ADL 4 (60 min) MADHAVI MENA Dec 21, 2018 10:27
--- NOTE | 2018-12-21 11:18 | Physical Therapy Daily Note ---
PT Daily Note-Current Subjective Pt reports having just some general achiness, arthritis, states L hand was swollen last night, better now. Pain Numeric Pain Scale: 6 Comment: pain med around 6am Appearance Upon arrival, pt in recliner sleeping, easily aroused, then awake and alert. At end of session, Pt sitting up in recliner, call light, phone and bedside table within reach Mental Status Patient Orientation: Person, Place, Time, Eyes Open, Situation Transfers Therapy Code Descriptions/Definitions Functional [place] Measure: 0=Not Assessed/NA 4=Minimal Assistance 1=Total Assistance 5=Supervision or Setup 2=Maximal Assistance 6=Modified [place] 3=Moderate Assistance 7=Complete [place] Therapy Quality Codes: 6 Independent with activity with or without an assistive device 5 Patient requires set up or clean up by helper. Patient completes activity by themselves 4 Supervision or touching assist (CGA). [place] provide cues , steadying assist 3 The helper provides less than half the effort to complete the activity 2 The helper provides more than half the effort to complete the activity 1 Dependent. The helper does all the effort to complete an activity 7 Patient refused to complete or attempt activity 9 The patient did not perform the activity before the current illness or injury 88 Not attempted due to Medical conditions or safety concerns Transfers (B, C, W/C) (FIM): 5 Sit to/from Stand: 5 Pt demonstrating ability to perform sit to and from stand transfers throughout tx session with SBA-CGA, use of RUE to push up from chair and to reach back for arm of chair, use of elevated recliner to coordinator mining products room but also able to stand without elevated seat in gym and from w/c Weight Bearing Right Lower Extremity: Right Full Weight Bearing Left Lower Extremity: Left Full Weight Bearing Gait Training Does the Patient Walk?: Yes Gait (FIM): 2 Distance (FIM): 7=536-17 ft Distance: 95' Gait Level of Assist: 4 Gait Persons Needed: 1 Gait Assistive Device: Walker Robby step through with occasional step to, correct sequencing with AD, instruction to increase step height and knee flex with LLE, slow gait, occasional unsteady episodes but no LOB requiring physical assist to correct Wheelchair Training Does the Pt Use a Wheelchair?: Yes Wheelchair (FIM): 2 Wheelchair Distance: 9=648-63 ft Distance: 120' Wheelchair Level of Assist: 5 Type of Wheelchair: Manual Use of LE's only, encouraging step sequencing Exercises Supine Ex: Bridging, Ankle pumps, Lower trunk rotation, Heel Slides, Knee to chest, Straight leg raise, Hip abd/add Supine Reps: 10 ((+) proprioceptive ex's L foot to R foot, huertas, knee) Seated Therapy Exercises: Ankle pumps, Long arc quads NuStep Minutes: 15 NuStep Workload: 5 (Seat 9, Arms 7, use of L well senior wind energy consultant 1/2 time) Treatments gait, transfer, safety, neuromuscular re ed, ther ex to improve functional mobility, activity tolerance, gait, strength, ROM, mobility and use of L side Assessment Current Status: Good Progress PT Short Term Goals Short Term Goals Time Frame: Dec 11, 2018 Gait (FIM): 1 Gait Distance Comment: 10' Gait Level of Assist: 3 Gait Assistive Device: Walker Robby Wheelchair Distance: 150' PT Nursing Home Goals Nursing Home Goals PT Industrial Hygiene Engineer Goals Time Frame: Dec 25, 2018 Transfers (B,C,W/C) (FIM): 4 Sit to Lying (QC): 3 Lying-Sitting on Side/Bed(QC): 3 Sit to Stand (QC): 3 Rollin Roll Left to Right (QC): 3 Chair/Fnw-ga-Exzwi Xfer(QC): 3 Car Transfer (QC): 3 Gait (FIM): 2 Distance: 50' Walk 10 feet (QC): 3 Walk 10ft-Uneven Surface(QC): 3 Walk 50ft with 2 Turns (QC): 3 Walk 150 ft (QC): 3 Gait Level of Assist: 4 Gait Assistive Device: Walker Robby Stairs (FIM): 1 # of Steps: 1 1 Step (curb) (QC): 3 Stairs Level Of Assist: 4 PT Plan Treatment/Plan Treatment Plan: Continue Plan of Care Treatment Plan: Bed Mobility, Concurrent Therapy, Education, Functional Activity Angelita, Functional Strength, Group Therapy, Gait, Safety, Therapeutic Exercise, Transfers Treatment Duration: Dec 25, 2018 Frequency: At least 5 of 7 days/Wk (IRF) Estimated Hrs Per Day: 1.5 hours per day Patient and/or Family Agrees t: Yes Safety Risks/Education Patient Education: Gait Training, Transfer Techniques, Correct Positioning, W/ C Management, Safety Issues Teaching Recipient: Patient Teaching Methods: Demonstration, Discussion Response to Teaching: Verbalize Understanding, Return Demonstration Time/GCodes Time In: 800 Time Out: 900 Total Billed Treatment Time: 60 Total Billed Treatment 1 visit, GT x2 units, EX x2 units DINA LOU ANTHROPOLOGY INSTRUCTOR Dec 21, 2018 11:18
[2018-12-21] MEDS: ACETAMINOPHEN 500 MG TAB (TYLENOL) PO PRN ×2 (12:34→22:53)
--- NOTE | 2018-12-21 15:17 | Therapy Group Daily Note ---
Therapy Daily Group Note Patient Education Topic Other List Below (transfer safety) Exercises LE Seated Exercise, UE Exercise Session Ratio (pt:therapist): 3:1 Goal of Session: Education on ARU Expectations, Safety with Transfers Goal Met for this Session: Yes Pt Benefit of Group: Contributions to Others, Increased Functional Safety, Recognition of Peers, Socialization Other/Notes Pt ambulated with FWW to OT/PT group. Group consisted of introductions (name, place living, most interesting person), socialization, UE/LE seated exercises, safe transfer education and explanation of ARU. Pt introduced self appropriately and actively listened to peers. Pt contributed to discussions and gave personal strategies for educational topics. Pt was able to lead group exercise and roll dice to choose amount of reps completed. Pt completed safe car transfer during group for demonstration. After group, pt sitting in recliner with call light/phone in reach. All needs met in room. Start Time: 13:00 Stop Time: 14:20 Total Billed Treatment Time: 80 Total Billed Treatment 1-GRP MADHAVI MENA Dec 21, 2018 15:17
[2018-12-21 15:58] VITALS: BP 107/67
--- NOTE | 2018-12-21 16:01 | Speech Therapy Daily Note ---
Speech Daily Progress Note Subjective Date Seen by Provider: Dec 21, 2018 Time Seen by Provider: 00:15 Patient sitting in her recliner resting after group this afternoon. Objective Patient completed oral intake with her drinks and a snack without difficulty or choking with minimal cues. Assessment Assessment Current Status: Good Progress Treatment Plan Continue Plan of Care Communication Comprehension: 7 Expression: 7 Social Cognition Social Interaction: 7 Problem Solvin Memory: 7 Speech Short Term Goals Short Term Goals Short Term Goals 1) Patient will utilize compensatory strategies as trained for safe oral intake of the least restrictive diet with 90% or greater. 2) Patient will demonstrate safe oral intake of the least restrictive diet level with 90% or greater. Speech Senior Care Goals House Parent Goals Patient will maintain adequate nutrition/hydration via safe effective swallow function. Speech-Plan Patient/Family Goals Patient/Family Goals: Patient plans to return home with family support post rehab. Treatment Plan Speech Therapy Treatment Plan: Continue Plan of Care Patient is progressing well as a result of skilled ST services. Treatment Duration: Dec 28, 2018 Frequency: 4 times per week Estimated Hrs Per Day: .5 hour per day Rehab Potential: Good Barriers to Learning: New onset CVA Pt/Family Agrees to Plan: Yes Safety Risks/Education Teaching Recipient: Patient Teaching Methods: Discussion Response to Teaching: Verbalize Understanding Education Topics Provided: Continued safety with oral intake. Time Speech Therapy Time In: 15:00 Speech Therapy Time Out: 15:30 Total Billed Time: 15 Billed Treatment Time FEDERICO James [facility] ST Dec 21, 2018 16:01
[2018-12-21 18:16] VITALS: BP 107/67
[2018-12-21] MEDS: ATORVASTATIN 20 MG (LIPITOR) TABLET PO SCH (21:32)
[2018-12-22 05:31] VITALS: BP 155/66
[2018-12-22] MEDS: inSUlin ASPART (NovoLOG) 1 UNIT/0.01 ML (CHARGE PER UNIT) SC SCH ×4 (06:16→22:19)
[2018-12-22] MEDS: HYDROcodone/APAP 5 MG/325 MG (LORTAB) TAB PO PRN (06:17)
[2018-12-22] MEDS: LEVOTHYROXINE 50 MCG (LEVOTHROID) TAB PO SCH (06:17)
[2018-12-22] MEDS: PIOGLITAZONE 30MG (ACTOS) TAB PO SCH ×2 (08:28→20:05)
[2018-12-22] MEDS: amLODIPine 10 MG (NORVASC) TAB PO SCH (08:28)
[2018-12-22] MEDS: PANTOPRAZOLE 20 MG TABLET (PROTONIX) PO SCH (08:28)
[2018-12-22] MEDS: DOCUSATE SODIUM 100 MG (COLACE) CAP PO SCH ×2 (08:29→20:03)
[2018-12-22] MEDS: CELECOXIB 100 MG (CeleBREX) CAP PO SCH ×2 (08:29→20:04)
[2018-12-22] MEDS: ASPIRIN E.C. 81 MG (ECOTRIN) TAB PO SCH (08:29)
[2018-12-22] MEDS: ENOXAPARIN 40 MG/0.4 ML (LOVENOX) SYR SC SCH ×2 (08:29→20:06)
[2018-12-22] MEDS: TRIAMTERENE/HCTZ 75-50 (MAXZIDE,DYAZIDE) TABLET PO SCH (08:29)
[2018-12-22] MEDS: TROLAMINE (ASPERCREME) 10% CR 90 GM TUBE TOP SCH ×2 (08:37→22:23)
--- NOTE | 2018-12-22 11:09 | PM&R Progress Note ---
Subjective HPI/CC On Admission Date Seen by Provider: Dec 22, 2018 Time Seen by Provider: 11:15 Chief complaint: Stroke with left sided weakness and dysphasia. HPI: This is a 68yoWF who moved to [place] in 2011 but remained a patient of TERESA Monroe doctor who presented with left sided weakness diagnosed with a stroke (out of tPA window of candidacy) and has been actively pursuing rehab since that time. At this current time she is still have dysphasia and difficulty speaking but her thought process is intact and she will need intensive therapy for the left sided weakness. Curry catheter has been maintained and that will be discontinued. Bowels are moving she reports after meds were given. I reviewed all of her home medication that included Celebrex and will maintain on Aspirin and low dose Statin therapy following a stroke per protocol. Pt is agreeable for inpatient rehab and intensive therapy to regain function following a devastating stroke with left sided weakness. She lives at home alone. 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 Pt does have chronic pain, fibromyalgia, and osteoarthritis that she struggles with on an ongoing basis. Subjective/Events-last exam Blood sugars reviewed and elevated at times Pt doing well overall Left leg is functioning a little better Left hand has regained some strength Bowels are moving well Ready for PT Overall motivated to get better Awaiting her plan for assisted living or long-term at time of DC Objective Exam Vital Signs Vital Signs Date Time Temp Pulse Resp B/P (MAP) Pulse Ox O2 Delivery O2 Flow Rate FiO2 12/22/18 09:50 Room Air 12/22/18 05:31 97.1 63 16 155/66 (95) 92 12/16/18 22:37 25.00 Capillary Refill : General Appearance: No Apparent Distress, WD/WN, Chronically ill, Obese HEENT: PERRL/EOMI, Normal ENT Inspection, Pharynx Normal, Moist Mucous Membranes Neck: Full Range of Motion, Normal Inspection, Non Tender, Supple Respiratory: Chest Non Tender, Lungs Clear, Normal Breath Sounds, No Accessory Muscle Use, No Respiratory Distress Cardiovascular: Regular Rate, Rhythm, No Edema, No Gallop, No JVD, No Murmur Gastrointestinal: Normal Bowel Sounds, No Organomegaly, No Pulsatile Mass, Non Tender, Soft Back: Normal Inspection, No CVA Tenderness, No Vertebral Tenderness Extremity: Normal Capillary Refill, Normal Inspection, Normal Range of Motion ( except left upper ad lower extremity weakness), Non Tender, No Calf Tenderness, No Pedal Edema Neurologic/Psychiatric: Alert, Oriented x3, Normal Mood/Affect, Facial Droop ( left), Motor Weakness (left sided weakness, left facial droop, thickened speech but today, 12/10/18 left hand import/export administrator improved and 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 Assessment/Plan Assessment and Plan Assess & Plan/Chief Complaint Assessment: s/p right WELLNESS AMBASSADOR stroke with left sided weakness HTN HTG HLP Hypothyroidism STEPH on CPAP Hypokalemia chronic and allergic to supplement DM OOC DVT PPx with Lovenox Plan: Intensive PT/OT/Speech therapies Monitor bowel function Fall risk management Actos tolerated Continue statin and therapies Wants to return home to live independently but unsure of the feasibility of that will be CPAP use (1) Acute right WELLNESS AMBASSADOR stroke (2) DVT prophylaxis (3) Hyperglyceridemia (4) Hypokalemia (5) Weakness of left side of body (6) Difficulty speaking (7) Dysphagia (8) STEPH on CPAP (9) Non-insulin dependent type 2 diabetes mellitus (10) Essential (primary) hypertension (11) Obesity (12) Hypothyroidism Clinical Quality Measures DVT/VTE Risk/Contraindication: Risk Factor Score Per Nursin RFS Level Per Nursing on Admit: 4+=Very High LOREN MILLER DO Dec 22, 2018 11:09
--- NOTE | 2018-12-22 12:24 | Physical Therapy Daily Note ---
PT Daily Note-Current Subjective Pt sitting up in W/C in room upon arrival. Pt agrees to PT. Pt had just toileted before starting tx. Pt agrees to PT. Pain Numeric Pain Scale: 4 Location: Lower, Dorsal Location Body Site: Back Pain Description: Ache, Tightness Mental Status Patient Orientation: Person, Place, Time, Situation Transfers Therapy Code Descriptions/Definitions Functional [place] Measure: 0=Not Assessed/NA 4=Minimal Assistance 1=Total Assistance 5=Supervision or Setup 2=Maximal Assistance 6=Modified [place] 3=Moderate Assistance 7=Complete [place] Therapy Quality Codes: 6 Independent with activity with or without an assistive device 5 Patient requires set up or clean up by helper. Patient completes activity by themselves 4 Supervision or touching assist (CGA). [place] provide cues , steadying assist 3 The helper provides less than half the effort to complete the activity 2 The helper provides more than half the effort to complete the activity 1 Dependent. The helper does all the effort to complete an activity 7 Patient refused to complete or attempt activity 9 The patient did not perform the activity before the current illness or injury 88 Not attempted due to Medical conditions or safety concerns Scootin Supine to/from Sit: 5 Sit to/from Stand: 5 Sit to Stand (QC): 5 Weight Bearing Right Lower Extremity: Right Full Weight Bearing Left Lower Extremity: Left Full Weight Bearing Gait Training Distance (FIM): 7=540-48 ft Distance: 50' Walk 10 feet (QC): 4 Walk 50 ft with 2 Turns(QC): 4 Gait Level of Assist: 4 Gait Persons Needed: 1 Gait Assistive Device: Walker Robby Pt's gait on L side is very stiff today. Wheelchair Training Does the Pt Use a Wheelchair?: Yes Wheelchair Distance: 3=150 ft Distance: 150' Wheelchair Level of Assist: 5 Wheel 50 ft with 2 turns (QC): 5 Wheel 150 ft (QC): 5 Type of Wheelchair: Manual Exercises Supine Ex: Ankle pumps, Quad Set, Heel Slides, Short Arc Quads, Hip abd/add Supine Reps: 15 Treatments Pt propels W/C in hallway then transfers to EOM. Pt completes Supine Ex with focus on DF stretch on L foot. Pt transfers to EOM w/o assistance and ambulates short distance before returning to W/C for rest of way to room. Pt resting in recliner with all needs met at end of tx. Assessment Current Status: Good Progress Pt is tighter in L ankle & knee today. This limited walking. PT Short Term Goals Short Term Goals Time Frame: Dec 11, 2018 Gait (FIM): 1 Gait Distance Comment: 10' Gait Level of Assist: 3 Gait Assistive Device: Walker Robby Wheelchair Distance: 120' PT Welder Experimental Goals Half-Way Goals PT Welder Experimental Goals Time Frame: Dec 25, 2018 Transfers (B,C,W/C) (FIM): 4 Sit to Lying (QC): 3 Lying-Sitting on Side/Bed(QC): 3 Sit to Stand (QC): 3 Rollin Roll Left to Right (QC): 3 Chair/Oyr-up-Jyqdj Xfer(QC): 3 Car Transfer (QC): 3 Gait (FIM): 2 Distance: 50' Walk 10 feet (QC): 3 Walk 10ft-Uneven Surface(QC): 3 Walk 50ft with 2 Turns (QC): 3 Walk 150 ft (QC): 3 Gait Level of Assist: 4 Gait Assistive Device: Walker Robby Stairs (FIM): 1 # of Steps: 1 1 Step (curb) (QC): 3 Stairs Level Of Assist: 4 PT Plan Problem List Problem List: Activity Tolerance, Functional Strength, Gait Treatment/Plan Treatment Plan: Continue Plan of Care Treatment Plan: Bed Mobility, Concurrent Therapy, Education, Functional Activity Angelita, Functional Strength, Group Therapy, Gait, Safety, Therapeutic Exercise, Transfers Treatment Duration: Dec 25, 2018 Frequency: At least 5 of 7 days/Wk (IRF) Estimated Hrs Per Day: 1.5 hours per day Patient and/or Family Agrees t: Yes Safety Risks/Education Patient Education: Gait Training, Transfer Techniques, Correct Positioning, Safety Issues Teaching Recipient: Patient Teaching Methods: Discussion Response to Teaching: Verbalize Understanding Time/GCodes Time In: 1020 Time Out: 1055 Total Billed Treatment Time: 35 Total Billed Treatment 1, GT (15m) & EX (20m) G Codes Necessary: MONY Lake PTA Dec 22, 2018 12:24
--- NOTE | 2018-12-22 15:16 | NUR ---
MOM given for C/O constipation.
[2018-12-22 16:24] VITALS: BP 134/63
--- NOTE | 2018-12-22 16:25 | NUR ---
Up to the BR. Moderate amount of stool noted.
[2018-12-22] MEDS: ATORVASTATIN 20 MG (LIPITOR) TABLET PO SCH (20:03)
[2018-12-22] MEDS: ACETAMINOPHEN 500 MG TAB (TYLENOL) PO PRN (22:23)
[2018-12-23 04:58] LABS: BASOPHILS % (AUTO) 1 % (0-10); EOSINOPHILS # (AUTO) 0.2 10^3/uL (0.0-0.3); EOSINOPHILS % (AUTO) 3 % (0-10); HEMATOCRIT 40 % (35-52); HEMOGLOBIN 13.1 G/DL (11.5-16.0); LYMPHOCYTES # (AUTO) 2.4 X 10^3 (1.0-4.0); LYMPHOCYTES % (AUTO) 41 % (12-44); MEAN CORPUSCULAR HEMOGLOBIN 32 PG (25-34); MEAN CORPUSCULAR HGB CONC 33 G/DL (32-36); MEAN CORPUSCULAR VOLUME 97 FL (80-99); MEAN PLATELET VOLUME 10.5 FL (7.4-10.4); MONOCYTES # (AUTO) 0.5 X 10^3 (0.0-1.0); MONOCYTES % (AUTO) 9 % (0-12); NEUTROPHILS # (AUTO) 2.8 X 10^3 (1.8-7.8); NEUTROPHILS % (AUTO) 48 % (42-75); PLATELET COUNT 234 10^3/uL (130-400); RED CELL DISTRIBUTION WIDTH 14.2 % (10.0-14.5)
[2018-12-23] MEDS: LEVOTHYROXINE 50 MCG (LEVOTHROID) TAB PO SCH (05:11)
[2018-12-23] MEDS: ACETAMINOPHEN 500 MG TAB (TYLENOL) PO PRN ×3 (05:11→22:50)
[2018-12-23 05:21] VITALS: BP 140/82
[2018-12-23 05:22] LABS: ALANINE AMINOTRANSFERASE 25 U/L (0-55); ALKALINE PHOSPHATASE 52 U/L (40-136); BILIRUBIN,TOTAL 0.5 MG/DL (0.1-1.0); BUN/CREATININE RATIO 21; CALCIUM 9.6 MG/DL (8.5-10.1); CARBON DIOXIDE 27 MMOL/L (21-32); CHLORIDE 100 MMOL/L (98-107); GFR ESTIMATED > 60; GLUCOSE 170 MG/DL (70-105); POTASSIUM 3.3 MMOL/L (3.6-5.0); SODIUM 140 MMOL/L (135-145); TOTAL PROTEIN 6.9 GM/DL (6.4-8.2)
[2018-12-23] MEDS: inSUlin ASPART (NovoLOG) 1 UNIT/0.01 ML (CHARGE PER UNIT) SC SCH ×4 (05:31→21:03)
[2018-12-23] MEDS: DOCUSATE SODIUM 100 MG (COLACE) CAP PO SCH ×2 (08:49→21:01)
[2018-12-23] MEDS: ASPIRIN E.C. 81 MG (ECOTRIN) TAB PO SCH (08:49)
[2018-12-23] MEDS: amLODIPine 10 MG (NORVASC) TAB PO SCH (08:49)
[2018-12-23] MEDS: TRIAMTERENE/HCTZ 75-50 (MAXZIDE,DYAZIDE) TABLET PO SCH (08:49)
[2018-12-23] MEDS: PANTOPRAZOLE 20 MG TABLET (PROTONIX) PO SCH (08:49)
[2018-12-23] MEDS: CELECOXIB 100 MG (CeleBREX) CAP PO SCH ×2 (08:49→21:01)
[2018-12-23] MEDS: PIOGLITAZONE 30MG (ACTOS) TAB PO SCH ×2 (08:49→21:01)
[2018-12-23] MEDS: ENOXAPARIN 40 MG/0.4 ML (LOVENOX) SYR SC SCH ×2 (08:50→21:02)
[2018-12-23] MEDS: TROLAMINE (ASPERCREME) 10% CR 90 GM TUBE TOP SCH ×2 (08:51→21:03)
--- NOTE | 2018-12-23 11:16 | PM&R Progress Note ---
Subjective HPI/CC On Admission Date Seen by Provider: Dec 23, 2018 Time Seen by Provider: 11:00 Chief complaint: Stroke with left sided weakness and dysphasia. HPI: This is a 68yoWF who moved to [place] in 2011 but remained a patient of TERESA Monroe doctor who presented with left sided weakness diagnosed with a stroke (out of tPA window of candidacy) and has been actively pursuing rehab since that time. At this current time she is still have dysphasia and difficulty speaking but her thought process is intact and she will need intensive therapy for the left sided weakness. Curry catheter has been maintained and that will be discontinued. Bowels are moving she reports after meds were given. I reviewed all of her home medication that included Celebrex and will maintain on Aspirin and low dose Statin therapy following a stroke per protocol. Pt is agreeable for inpatient rehab and intensive therapy to regain function following a devastating stroke with left sided weakness. She lives at home alone. 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 Pt does have chronic pain, fibromyalgia, and osteoarthritis that she struggles with on an ongoing basis. Subjective/Events-last exam Patient doesn't feel like her left foot and hand are working as well as yesterday Bowels are moving since MOM given and feels like she had a side effect after it was given and "passed out" but I spoke to the RN and she took a nap after the BM attained and it was NOT a syncopal episode Patient has such off sensitivities to meds including "anaphylaxis" to potassium supplement now with the MOM? Overall motivated to get better Awaiting her plan for assisted living or shelter at time of DC Review of Systems General: Fatigue Neurological: Weakness, Numbness, Incoordination Objective Exam Vital Signs Vital Signs Date Time Temp Pulse Resp B/P (MAP) Pulse Ox O2 Delivery O2 Flow Rate FiO2 12/23/18 09:48 Room Air 12/23/18 05:21 98.0 68 16 140/82 (101) 93 Capillary Refill : General Appearance: No Apparent Distress, WD/WN, Chronically ill, Obese HEENT: PERRL/EOMI, Normal ENT Inspection, Pharynx Normal, Moist Mucous Membranes Neck: Full Range of Motion, Normal Inspection, Non Tender, Supple Respiratory: Chest Non Tender, Lungs Clear, Normal Breath Sounds, No Accessory Muscle Use, No Respiratory Distress Cardiovascular: Regular Rate, Rhythm, No Edema, No Gallop, No JVD, No Murmur Gastrointestinal: Normal Bowel Sounds, No Organomegaly, No Pulsatile Mass, Non Tender, Soft Back: Normal Inspection, No CVA Tenderness, No Vertebral Tenderness Extremity: Normal Capillary Refill, Normal Inspection, Normal Range of Motion ( except left upper ad lower extremity weakness), Non Tender, No Calf Tenderness, No Pedal Edema Neurologic/Psychiatric: Alert, Oriented x3, Normal Mood/Affect, Facial Droop ( left), Motor Weakness (left sided weakness, left facial droop, thickened speech but today, 12/10/18 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 Assessment/Plan Assessment and Plan Assess & Plan/Chief Complaint Assessment: s/p right FIELD ADVISOR stroke with left sided weakness HTN HTG HLP Hypothyroidism STEPH on CPAP Hypokalemia chronic and allergic to supplement DM OOC DVT PPx with Lovenox Plan: Intensive PT/OT/Speech therapies Monitor bowel function Fall risk management Actos tolerated Continue statin and therapies Wants to return home to live independently but unsure of the feasibility of that will be CPAP use (1) Acute right FIELD ADVISOR stroke (2) DVT prophylaxis (3) Hyperglyceridemia (4) Hypokalemia (5) Weakness of left side of body (6) Difficulty speaking (7) Dysphagia (8) STEPH on CPAP (9) Non-insulin dependent type 2 diabetes mellitus (10) Essential (primary) hypertension (11) Obesity (12) Hypothyroidism Clinical Quality Measures DVT/VTE Risk/Contraindication: Risk Factor Score Per Nursin RFS Level Per Nursing on Admit: 4+=Very High LOREN MILLER DO Dec 23, 2018 11:16
[2018-12-23 17:13] VITALS: BP 146/64
[2018-12-23] MEDS: ATORVASTATIN 20 MG (LIPITOR) TABLET PO SCH (21:01)
[2018-12-24] MEDS: inSUlin ASPART (NovoLOG) 1 UNIT/0.01 ML (CHARGE PER UNIT) SC SCH ×4 (06:08→21:23)
[2018-12-24 06:09] VITALS: BP 145/83
[2018-12-24] MEDS: ACETAMINOPHEN 500 MG TAB (TYLENOL) PO PRN (06:09)
[2018-12-24] MEDS: LEVOTHYROXINE 50 MCG (LEVOTHROID) TAB PO SCH (06:09)
[2018-12-24 08:00] VITALS: BP 136/81
--- NOTE | 2018-12-24 08:00 | NUR ---
COMPLAIN LEFT ARM FEELS WEAKER SINCE NOT MUCH THERAPY THIS WEEKEND. STILL HOPEFUL MAY GET TO GO HOME UPON DISMISSAL. DR. MILLER AWARE THAT POTASSIUM IS 3.3. PATIENT ALLERGIC TO POTASSIUM.
--- NOTE | 2018-12-24 08:20 | PM&R Progress Note ---
Subjective HPI/CC On Admission Date Seen by Provider: Dec 24, 2018 Time Seen by Provider: 08:15 Chief complaint: Stroke with left sided weakness and dysphasia. HPI: This is a 68yoWF who moved to [place] in 2011 but remained a patient of TERESA Monroe doctor who presented with left sided weakness diagnosed with a stroke (out of tPA window of candidacy) and has been actively pursuing rehab since that time. At this current time she is still have dysphasia and difficulty speaking but her thought process is intact and she will need intensive therapy for the left sided weakness. Curry catheter has been maintained and that will be discontinued. Bowels are moving she reports after meds were given. I reviewed all of her home medication that included Celebrex and will maintain on Aspirin and low dose Statin therapy following a stroke per protocol. Pt is agreeable for inpatient rehab and intensive therapy to regain function following a devastating stroke with left sided weakness. She lives at home alone. 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 Pt does have chronic pain, fibromyalgia, and osteoarthritis that she struggles with on an ongoing basis. Subjective/Events-last exam Pt feels like she loses ground when she doesn't work with therapy everyday Awaiting plan after DC from inpatient rehab she really wants to go home Will evaluate what her needs will be at home Maintain on borrowed CPAP machine and sleeping well Bowels are moving BP is noted Blood sugar is noted Objective Exam Vital Signs Vital Signs Date Time Temp Pulse Resp B/P (MAP) Pulse Ox O2 Delivery O2 Flow Rate FiO2 12/24/18 17:29 97.9 71 18 145/80 (101) 97 Room Air Capillary Refill : General Appearance: No Apparent Distress, WD/WN, Chronically ill, Obese HEENT: PERRL/EOMI, Normal ENT Inspection, Pharynx Normal, Moist Mucous Membranes Neck: Full Range of Motion, Normal Inspection, Non Tender, Supple Respiratory: Chest Non Tender, Lungs Clear, Normal Breath Sounds, No Accessory Muscle Use, No Respiratory Distress Cardiovascular: Regular Rate, Rhythm, No Edema, No Gallop, No JVD, No Murmur Gastrointestinal: Normal Bowel Sounds, No Organomegaly, No Pulsatile Mass, Non Tender, Soft Back: Normal Inspection, No CVA Tenderness, No Vertebral Tenderness Extremity: Normal Capillary Refill, Normal Inspection, Normal Range of Motion ( except left upper ad lower extremity weakness), Non Tender, No Calf Tenderness, No Pedal Edema Neurologic/Psychiatric: Alert, Oriented x3, Normal Mood/Affect, Facial Droop ( left), Motor Weakness (left sided weakness, left facial droop, thickened speech but today, 12/10/18 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 stroke with left sided weakness HTN HTG HLP Hypothyroidism STEPH on CPAP Hypokalemia chronic and allergic to supplement DM OOC DVT PPx with Lovenox Plan: Intensive PT/OT/Speech therapies Monitor bowel function Fall risk management Actos tolerated Continue statin and therapies Wants to return home to live independently but unsure of the feasibility of that will be CPAP use (1) Acute right EXERCISE SPECIALIST stroke (2) DVT prophylaxis (3) Hyperglyceridemia (4) Hypokalemia (5) Weakness of left side of body (6) Difficulty speaking (7) Dysphagia (8) STEPH on CPAP (9) Non-insulin dependent type 2 diabetes mellitus (10) Essential (primary) hypertension (11) Obesity (12) Hypothyroidism Clinical Quality Measures DVT/VTE Risk/Contraindication: Risk Factor Score Per Nursin RFS Level Per Nursing on Admit: 4+=Very High LOREN MILLER DO Dec 24, 2018 08:20
[2018-12-24] MEDS: CELECOXIB 100 MG (CeleBREX) CAP PO SCH ×2 (09:05→21:21)
[2018-12-24] MEDS: TRIAMTERENE/HCTZ 75-50 (MAXZIDE,DYAZIDE) TABLET PO SCH (09:06)
[2018-12-24] MEDS: PIOGLITAZONE 30MG (ACTOS) TAB PO SCH ×2 (09:06→21:21)
[2018-12-24] MEDS: PANTOPRAZOLE 20 MG TABLET (PROTONIX) PO SCH (09:06)
[2018-12-24] MEDS: HYDROcodone/APAP 5 MG/325 MG (LORTAB) TAB PO PRN (09:06)
[2018-12-24] MEDS: amLODIPine 10 MG (NORVASC) TAB PO SCH (09:06)
[2018-12-24] MEDS: ASPIRIN E.C. 81 MG (ECOTRIN) TAB PO SCH (09:07)
--- NOTE | 2018-12-24 09:07 | Physical Therapy Daily Note ---
PT Daily Note-Current Subjective Pt. states she had a busy weekend doing her taxes. Feels she has made good progress. Has goal of better DF Pain Numeric Pain Scale: 4 Location: Right Location Body Site: Shoulder Pain Description: Ache Transfers Therapy Code Descriptions/Definitions Functional [place] Measure: 0=Not Assessed/NA 4=Minimal Assistance 1=Total Assistance 5=Supervision or Setup 2=Maximal Assistance 6=Modified [place] 3=Moderate Assistance 7=Complete [place] Therapy Quality Codes: 6 Independent with activity with or without an assistive device 5 Patient requires set up or clean up by helper. Patient completes activity by themselves 4 Supervision or touching assist (CGA). [place] provide cues , steadying assist 3 The helper provides less than half the effort to complete the activity 2 The helper provides more than half the effort to complete the activity 1 Dependent. The helper does all the effort to complete an activity 7 Patient refused to complete or attempt activity 9 The patient did not perform the activity before the current illness or injury 88 Not attempted due to Medical conditions or safety concerns Transfers (B, C, W/C) (FIM): 5 Scootin Rollin Supine to/from Sit: 5 Sit to/from Stand: 5 pt. exerts much effort for TRFs and gait . Needs time and several tries for sup to side to sit as well as sit to stand Weight Bearing Right Lower Extremity: Right Full Weight Bearing Left Lower Extremity: Left Full Weight Bearing Gait Training Does the Patient Walk?: Yes Gait (FIM): 2 Distance (FIM): 0=153-58 ft (70ft, 40x2) Gait Level of Assist: 4 Gait Persons Needed: 1 Gait Assistive Device: Walker Robby some instruction for sequence and safety, pt. fatigues with gait and exercise Wheelchair Training Does the Pt Use a Wheelchair?: Yes Wheelchair (FIM): 4 Wheelchair Distance: 3=150 ft (150x1) Wheelchair Level of Assist: 4 Type of Wheelchair: Manual pt. has great difficulty going forward and goes backwards better, but needs assistance for seeing behind her, not a functional mode for home etc Exercises Supine Ex: Bridging, Ankle pumps, Quad Set, Rolling, Glut sets, Heel Slides, Short Arc Quads, Scooting, Straight leg raise (indep SLR left), Hip abd/add Supine Reps: 10 (x2) Seated Therapy Exercises: Sit to stand, Long arc quads, Hip flexion Seated Reps: 12 NuStep Minutes: 12 NuStep Workload: 3 Assessment Current Status: Good Progress PT Short Term Goals Short Term Goals Time Frame: Dec 11, 2018 Gait (FIM): 1 Gait Distance Comment: 10' Gait Level of Assist: 3 Gait Assistive Device: Walker Robby Wheelchair Distance: 150' PT Senior Living Goals Flight Deck Officer Goals PT Flight Deck Officer Goals Time Frame: Dec 25, 2018 Transfers (B,C,W/C) (FIM): 4 Sit to Lying (QC): 3 Lying-Sitting on Side/Bed(QC): 3 Sit to Stand (QC): 3 Rollin Roll Left to Right (QC): 3 Chair/Yhm-ur-Figcv Xfer(QC): 3 Car Transfer (QC): 3 Gait (FIM): 2 Distance: 50' Walk 10 feet (QC): 3 Walk 10ft-Uneven Surface(QC): 3 Walk 50ft with 2 Turns (QC): 3 Walk 150 ft (QC): 3 Gait Level of Assist: 4 Gait Assistive Device: Walker Robby Stairs (FIM): 1 # of Steps: 1 1 Step (curb) (QC): 3 Stairs Level Of Assist: 4 PT Plan Treatment/Plan Treatment Plan: Continue Plan of Care Treatment Plan: Bed Mobility, Concurrent Therapy, Education, Functional Activity Angelita, Functional Strength, Group Therapy, Gait, Safety, Therapeutic Exercise, Transfers Treatment Duration: Dec 25, 2018 Frequency: At least 5 of 7 days/Wk (IRF) Estimated Hrs Per Day: 1.5 hours per day Patient and/or Family Agrees t: Yes Safety Risks/Education Patient Education: Gait Training, Transfer Techniques, Correct Positioning, W/ C Management, Disease Process, Safety Issues Teaching Recipient: Patient Teaching Methods: Demonstration, Discussion Response to Teaching: Verbalize Understanding, Return Demonstration, Reinforcement Needed Time/GCodes Time In: 800 Time Out: 900 Total Billed Treatment Time: 60 Total Billed Treatment 1,EX30m,FA10m,GT20m G Codes Necessary: TAPAN Barton PTA Dec 24, 2018 09:07
[2018-12-24] MEDS: ENOXAPARIN 40 MG/0.4 ML (LOVENOX) SYR SC SCH ×2 (09:09→21:22)
[2018-12-24] MEDS: DOCUSATE SODIUM 100 MG (COLACE) CAP PO SCH ×2 (09:12→21:21)
[2018-12-24] MEDS: TROLAMINE (ASPERCREME) 10% CR 90 GM TUBE TOP SCH ×2 (09:13→21:25)
--- NOTE | 2018-12-24 12:35 | Occupational Ther Daily Note ---
OT Current Status-Daily Note Subjective Pt. reports that her knees are sore, but does not give a pain number. Pt. puts cream on her own knees to assist with pain. Appearance Pt. up in chair. Agrees to shower. Mental Status/Objective Patient Orientation: Person, Place, Time, Situation Therapy Code Descriptions/Definitions Functional [place] Measure: 0=Not Assessed/NA 4=Minimal Assistance 1=Total Assistance 5=Supervision or Setup 2=Maximal Assistance 6=Modified [place] 3=Moderate Assistance 7=Complete [place] ADL-Treatment Therapy Code Descriptions/Definitions Functional [place] Measure: 0=Not Assessed/NA 4=Minimal Assistance 1=Total Assistance 5=Supervision or Setup 2=Maximal Assistance 6=Modified [place] 3=Moderate Assistance 7=Complete [place] Therapy Quality Codes: 6 Independent with activity with or without an assistive device 5 Patient requires set up or clean up by helper. Patient completes activity by themselves 4 Supervision or touching assist (CGA). [place] provide cues , steadying assist 3 The helper provides less than half the effort to complete the activity 2 The helper provides more than half the effort to complete the activity 1 Dependent. The helper does all the effort to complete an activity 7 Patient refused to complete or attempt activity 9 The patient did not perform the activity before the current illness or injury 88 Not attempted due to Medical conditions or safety concerns Grooming (FIM): 5 (Set up in wheelchair at sink to brush hair and teeth.) Oral Hygiene (QC): 5 Bathing (FIM): 5 (SBA in stance for pt. to wash all parts.) Shower/Bathe Self (QC): 4 Upper Body (FIM): 3 (OT gave max assist to don bra. Pt. able to don shirt but required assistance for sleeves, as shirt was long sleeved.) Upper Body Dressing (QC): 3 Lower Body Dressing (FIM): 3 (Pt. doffed socks, pants, underwear, and shoes while seated on toilet. Utilized AE for this. After shower, pt. transferred to chair to give herself more room to assist with dressing. Pt. able to don underwear and pants to hip level. Required assistance to pull fully over hip. Pt. then attempted many methods to donning socks. Including propping up foot on bench, and then getting into bed. Pt. able to don right sock at bed level, but requires assist with left. Mod assistance to don shoes with AE.) Lower Body Dressing (QC): 3 On/Off Footwear (QC): 3 Toileting (FIM): 5 Toileting Hygiene (QC): 4 Transfers (B, C, W/C) (FIM): 5 Toilet/Commode Transfer (FIM): 5 Toilet Transfer (QC): 5 Shower Transfer(FIM): 5 Other Treatment Pt. transferred to wheelchair and propelled self to therapy gym. Tolerated 6 niraj-amps to left hand for finger flexion, and 8 niraj-amps to wrist extenders. Tolerated approximately 7 minutes at each level. Stood at table and worked on putting weight through left hand. Pt. is improving with this and is even able to abduct with towel under her hand, adduct, etc. Pt. does have increased difficulty with raising shoulder. Went back to room and transferred to chair with SBA. Pt. requested hot pack to left hand after treatment. OT applied hot pack. All needs met. Education OT Patient Education: Correct positioning, Exercise program, Modified ADL techniques, Progress toward Goal/Update tx plan, Purpose of tx/functional activities, Reviewed precautions, Rehab process, Transfer techniques Teaching Recipient: Patient Teaching Methods: Demonstration, Discussion Response to Teaching: Verbalize Understanding, Return Demonstration OT Short Term Goals Short Term Goals Time Frame: Dec 11, 2018 Upper Body Dressing(FIM): 3 Lower Body Dressing(FIM): 3 Toileting(FIM): 3 Toilet/Commode Transfer(FIM): 3 Additional Short Term Goals: 1-Demonstrate ADL Tasks, 2-Verbalize Understanding , 3-ImproveStrength/Angelita 1=Demonstrate adherence to instructed precautions during ADL tasks. 2=Patient will verbalize/demonstrate understanding of assistive devices/ modifications for ADL. 3=Patient will improve strength/tolerance for activity to enable patient to perform ADL's. OT Half-Way Goals Rubbing Bed Operator Goals Time Frame: Dec 28, 2018 Eating (FIM): 6 Eating (QC): 6 Groomin Oral Hygiene (QC): 6 Bathing(FIM): 4 Shower/Bathe Self (QC): 4 Upper Body Dressing(FIM): 5 Upper Body Dressing (QC): 5 Lower Body Dressing(FIM): 5 Lower Body Dressing (QC): 5 On/Off Footwear (QC): 5 Toileting(FIM): 5 Toileting Hygiene (QC): 5 Toilet/Commode Transfer(FIM): 5 Toilet/Commode Transfer (QC): 5 Shower Transfer(FIM): 5 Additional Goals: 1-Demonstrate ADL Tasks, 2-Verbalize Understanding, 3- ImproveStrength/Angelita 1=Demonstrate adherence to instructed precautions during ADL tasks. 2=Patient will verbalize/demonstrate understanding of assistive devices/ modifications for ADL. 3=Patient will improve strength/tolerance for activity to enable patient to perform ADL's. OT Education/Plan Problem List/Assessment Assessment: Decreased Activ Tolerance, Decreased UE Strength, Impaired I ADL's , Impaired Self-Care Skills, Restricted Funct UE ROM Discharge Recommendations Plan/Recommendations: Continue POC Therapy D/C Recommendations: Home w/ Family Support, Occupational Therapy Home Care, Scheduled Assistance Treatment Plan/Plan of Care Treatment,Training & Education: Yes Patient would benefit from OT for education, treatment and training to promote independence in ADL's, mobility, safety and/or upper extremity function for ADL' s. Plan of Care: ADL Retraining, Functional Mobility, Group Exercise/Act as Ind, UE Funct Exercise/Act, UE Neuromus Re-Ed/Coord Treatment Duration: Dec 28, 2018 Frequency: 5 times per week Estimated Hrs Per Day: .5 hour per day Agreement: Yes Rehab Potential: Good Time/GCodes Start Time: 10:00 Stop Time: 11:30 Total Time Billed (hr/min): 90 Billed Treatment Time 1, ADL x 60minutes, NM x 30minutes CHELI LOPEZ OT Dec 24, 2018 12:35
--- NOTE | 2018-12-24 13:02 | Physical Therapy Daily Note ---
PT Daily Note-Current Subjective Pt. agrees to Rx. States she still has overall discomfort at 6/10. " Helen always had this since my 20s" Pain Numeric Pain Scale: 6 Location: Right Location Body Site: Shoulder Pain Description: Ache Transfers Therapy Code Descriptions/Definitions Functional [place] Measure: 0=Not Assessed/NA 4=Minimal Assistance 1=Total Assistance 5=Supervision or Setup 2=Maximal Assistance 6=Modified [place] 3=Moderate Assistance 7=Complete [place] Therapy Quality Codes: 6 Independent with activity with or without an assistive device 5 Patient requires set up or clean up by helper. Patient completes activity by themselves 4 Supervision or touching assist (CGA). [place] provide cues , steadying assist 3 The helper provides less than half the effort to complete the activity 2 The helper provides more than half the effort to complete the activity 1 Dependent. The helper does all the effort to complete an activity 7 Patient refused to complete or attempt activity 9 The patient did not perform the activity before the current illness or injury 88 Not attempted due to Medical conditions or safety concerns sit to stand x 10 SBA, much effort exerted Weight Bearing Right Lower Extremity: Right Full Weight Bearing Left Lower Extremity: Left Full Weight Bearing Gait Training Does the Patient Walk?: Yes Gait Assistive Device: Walker Robby 125ft, 50 ft x 3, side step left and right in restricted space, fig 8s around chairs, turns, backing etc. no LOB , instruction for safety required Exercises Seated Therapy Exercises: Ankle pumps, Sit to stand, Long arc quads, Hip flexion Seated Reps: 12 emphasis on DF in left foot in sitting, active movement Treatments toileted with assist for pants down and up Assessment Current Status: Good Progress PT Short Term Goals Short Term Goals Time Frame: Dec 11, 2018 Gait (FIM): 1 Gait Distance Comment: 10' Gait Level of Assist: 3 Gait Assistive Device: Walker Robby Wheelchair Distance: 150' PT Director Of Quality Improvement Goals Director Of Quality Improvement Goals PT Long-Term Goals Time Frame: Dec 25, 2018 Transfers (B,C,W/C) (FIM): 4 Sit to Lying (QC): 3 Lying-Sitting on Side/Bed(QC): 3 Sit to Stand (QC): 3 Rollin Roll Left to Right (QC): 3 Chair/Hzp-yq-Wydje Xfer(QC): 3 Car Transfer (QC): 3 Gait (FIM): 2 Distance: 50' Walk 10 feet (QC): 3 Walk 10ft-Uneven Surface(QC): 3 Walk 50ft with 2 Turns (QC): 3 Walk 150 ft (QC): 3 Gait Level of Assist: 4 Gait Assistive Device: Walker Robby Stairs (FIM): 1 # of Steps: 1 1 Step (curb) (QC): 3 Stairs Level Of Assist: 4 PT Plan Treatment/Plan Treatment Plan: Continue Plan of Care Treatment Plan: Bed Mobility, Concurrent Therapy, Education, Functional Activity Angelita, Functional Strength, Group Therapy, Gait, Safety, Therapeutic Exercise, Transfers Treatment Duration: Dec 25, 2018 Frequency: At least 5 of 7 days/Wk (IRF) Estimated Hrs Per Day: 1.5 hours per day Patient and/or Family Agrees t: Yes Safety Risks/Education Patient Education: Gait Training, Transfer Techniques, Correct Positioning, Disease Process, Safety Issues Teaching Recipient: Patient Teaching Methods: Demonstration, Discussion Response to Teaching: Verbalize Understanding, Return Demonstration, Reinforcement Needed Time/GCodes Time In: 1230 Time Out: 1300 Total Billed Treatment Time: 30 Total Billed Treatment 1,EX10m,GT20 G Codes Necessary: TAPAN Barton PTA Dec 24, 2018 13:02
[2018-12-24 17:29] VITALS: BP 145/80
[2018-12-24] MEDS: ATORVASTATIN 20 MG (LIPITOR) TABLET PO SCH (21:21)
--- NOTE | 2018-12-25 01:00 | NUR ---
Received report from JUAN Knight. This RN to assume care at this time. Agree with previous valet cashier.
[2018-12-25] MEDS: HYDROcodone/APAP 5 MG/325 MG (LORTAB) TAB PO PRN ×2 (05:36→14:27)
[2018-12-25] MEDS: LEVOTHYROXINE 50 MCG (LEVOTHROID) TAB PO SCH (05:36)
[2018-12-25] MEDS: inSUlin ASPART (NovoLOG) 1 UNIT/0.01 ML (CHARGE PER UNIT) SC SCH ×4 (05:36→21:07)
[2018-12-25 05:38] VITALS: BP 100/60
[2018-12-25 08:00] VITALS: BP 126/66
[2018-12-25] MEDS: PIOGLITAZONE 30MG (ACTOS) TAB PO SCH ×2 (08:21→21:07)
[2018-12-25] MEDS: CELECOXIB 100 MG (CeleBREX) CAP PO SCH ×2 (08:21→21:08)
[2018-12-25] MEDS: PANTOPRAZOLE 20 MG TABLET (PROTONIX) PO SCH (08:21)
[2018-12-25] MEDS: TRIAMTERENE/HCTZ 75-50 (MAXZIDE,DYAZIDE) TABLET PO SCH (08:21)
[2018-12-25] MEDS: amLODIPine 10 MG (NORVASC) TAB PO SCH (08:21)
[2018-12-25] MEDS: DOCUSATE SODIUM 100 MG (COLACE) CAP PO SCH ×2 (08:22→21:08)
[2018-12-25] MEDS: ASPIRIN E.C. 81 MG (ECOTRIN) TAB PO SCH (08:23)
[2018-12-25] MEDS: ENOXAPARIN 40 MG/0.4 ML (LOVENOX) SYR SC SCH ×2 (08:25→21:07)
[2018-12-25] MEDS: TROLAMINE (ASPERCREME) 10% CR 90 GM TUBE TOP SCH ×2 (08:26→21:08)
--- NOTE | 2018-12-25 08:48 | PM&R Progress Note ---
Subjective HPI/CC On Admission Date Seen by Provider: Dec 25, 2018 Time Seen by Provider: 08:30 Chief complaint: Stroke with left sided weakness and dysphasia. HPI: This is a 68yoWF who moved to [place] in 2011 but remained a patient of TERESA Monroe doctor who presented with left sided weakness diagnosed with a stroke (out of tPA window of candidacy) and has been actively pursuing rehab since that time. At this current time she is still have dysphasia and difficulty speaking but her thought process is intact and she will need intensive therapy for the left sided weakness. Curry catheter has been maintained and that will be discontinued. Bowels are moving she reports after meds were given. I reviewed all of her home medication that included Celebrex and will maintain on Aspirin and low dose Statin therapy following a stroke per protocol. Pt is agreeable for inpatient rehab and intensive therapy to regain function following a devastating stroke with left sided weakness. She lives at home alone. 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 Pt does have chronic pain, fibromyalgia, and osteoarthritis that she struggles with on an ongoing basis. Subjective/Events-last exam No significant changes. Left ankle ans toes are moving better today. Overall improving but has a great deal of work ahead of her. Denies any other significant issues. Review of Systems Neurological: Numbness, Incoordination Objective Exam Vital Signs Vital Signs Date Time Temp Pulse Resp B/P (MAP) Pulse Ox O2 Delivery O2 Flow Rate FiO2 12/25/18 18:00 98.0 66 18 114/56 (75) 93 Room Air Capillary Refill : General Appearance: No Apparent Distress, WD/WN, Chronically ill, Obese HEENT: PERRL/EOMI, Normal ENT Inspection, Pharynx Normal, Moist Mucous Membranes Neck: Full Range of Motion, Normal Inspection, Non Tender, Supple Respiratory: Chest Non Tender, Lungs Clear, Normal Breath Sounds, No Accessory Muscle Use, No Respiratory Distress Cardiovascular: Regular Rate, Rhythm, No Edema, No Gallop, No JVD, No Murmur Gastrointestinal: Normal Bowel Sounds, No Organomegaly, No Pulsatile Mass, Non Tender, Soft Back: Normal Inspection, No CVA Tenderness, No Vertebral Tenderness Extremity: Normal Capillary Refill, Normal Inspection, Normal Range of Motion ( except left upper ad lower extremity weakness), Non Tender, No Calf Tenderness, No Pedal Edema Neurologic/Psychiatric: Alert, Oriented x3, Normal Mood/Affect, Facial Droop ( left), Motor Weakness (left sided weakness, left facial droop, thickened speech but today, 12/10/18 left hand certified ophthalmic technician improved and 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 Assessment/Plan Assessment and Plan Assess & Plan/Chief Complaint Assessment: s/p right TIRE DEBEADER stroke with left sided weakness HTN HTG HLP Hypothyroidism STEPH on CPAP Hypokalemia chronic and allergic to supplement DM OOC DVT PPx with Lovenox Plan: Intensive PT/OT/Speech therapies Monitor bowel function Fall risk management Actos tolerated Continue statin and therapies Wants to return home to live independently but unsure of the feasibility of that will be CPAP use (1) Acute right TIRE DEBEADER stroke (2) DVT prophylaxis (3) Hyperglyceridemia (4) Hypokalemia (5) Weakness of left side of body (6) Difficulty speaking (7) Dysphagia (8) STEPH on CPAP (9) Non-insulin dependent type 2 diabetes mellitus (10) Essential (primary) hypertension (11) Obesity (12) Hypothyroidism Clinical Quality Measures DVT/VTE Risk/Contraindication: Risk Factor Score Per Nursin RFS Level Per Nursing on Admit: 4+=Very High LOREN MILLER DO Dec 25, 2018 08:48
--- NOTE | 2018-12-25 09:32 | Speech Therapy Daily Note ---
Speech Daily Progress Note Subjective Date Seen by Provider: Dec 25, 2018 Time Seen by Provider: 00:30 Patient was sitting in her recliner resting when I arrived. Objective The patient completed oral intake with utilization of compensatory strategies 90 % without verbal cues. Assessment Assessment Current Status: Good Progress Treatment Plan Continue Plan of Care Communication Comprehension: 7 Expression: 7 Social Cognition Social Interaction: 7 Problem Solvin Memory: 7 Speech Short Term Goals Short Term Goals Short Term Goals 1) Patient will utilize compensatory strategies as trained for safe oral intake of the least restrictive diet with 90% or greater. 2) Patient will demonstrate safe oral intake of the least restrictive diet level with 90% or greater. Speech Linen Attendant Goals [facility] Goals Patient will maintain adequate nutrition/hydration via safe effective swallow function. Speech-Plan Patient/Family Goals Patient/Family Goals: Patient would like to return home with family support post rehab. Treatment Plan Speech Therapy Treatment Plan: Continue Plan of Care Patient is making good progress as a result of skilled ST services. Treatment Duration: Dec 28, 2018 Frequency: 4 times per week Estimated Hrs Per Day: .5 hour per day Rehab Potential: Good Barriers to Learning: Patient has recent onset of CVA. Pt/Family Agrees to Plan: Yes Safety Risks/Education Teaching Recipient: Patient Teaching Methods: Discussion Response to Teaching: Verbalize Understanding Education Topics Provided: Safety of oral intake with the regular diet. Time Speech Therapy Time In: 09:00 Speech Therapy Time Out: 09:30 Total Billed Time: 30 Billed Treatment Time 1[address] Dec 25, 2018 09:31
[2018-12-25] MEDS: ACETAMINOPHEN 500 MG TAB (TYLENOL) PO PRN ×2 (11:12→23:19)
--- NOTE | 2018-12-25 12:12 | Physical Therapy Daily Note ---
PT Daily Note-Current Subjective Pt in restroom upon arrival. Pt agrees to PT. Pain Comment: Pt appears to be very fatigued. Mental Status Patient Orientation: Person, Place, Time, Situation Transfers Therapy Code Descriptions/Definitions Functional [place] Measure: 0=Not Assessed/NA 4=Minimal Assistance 1=Total Assistance 5=Supervision or Setup 2=Maximal Assistance 6=Modified [place] 3=Moderate Assistance 7=Complete [place] Therapy Quality Codes: 6 Independent with activity with or without an assistive device 5 Patient requires set up or clean up by helper. Patient completes activity by themselves 4 Supervision or touching assist (CGA). [place] provide cues , steadying assist 3 The helper provides less than half the effort to complete the activity 2 The helper provides more than half the effort to complete the activity 1 Dependent. The helper does all the effort to complete an activity 7 Patient refused to complete or attempt activity 9 The patient did not perform the activity before the current illness or injury 88 Not attempted due to Medical conditions or safety concerns Scootin Supine to/from Sit: 5 Sit to/from Stand: 5 Sit to Lying (QC): 5 Sit to Stand (QC): 5 Weight Bearing Right Lower Extremity: Right Full Weight Bearing Left Lower Extremity: Left Full Weight Bearing Gait Training Does the Patient Walk?: Yes Distance (FIM): 2=606-45 ft Distance: 60' Walk 10 feet (QC): 4 Walk 50 ft with 2 Turns(QC): 4 Gait Level of Assist: 4 Gait Persons Needed: 1 Gait Assistive Device: Walker Robby Pt fatigues quicker today. Pt appeared more tired upon entering room at start of tx. Wheelchair Training Does the Pt Use a Wheelchair?: Yes Wheelchair Distance: 3=150 ft Distance: 150' Wheelchair Level of Assist: 5 Wheel 50 ft with 2 turns (QC): 5 Wheel 150 ft (QC): 5 Type of Wheelchair: Manual Exercises Supine Ex: Ankle pumps, Quad Set, Glut sets, Heel Slides, Straight leg raise, Hip abd/add Supine Reps: 20 Treatments Pt propels W/C in hallway after using restroom. Pt transfers to EOM then Supine to complete Supine EX. Pt ambulates short distance in hallway before returning to W/C to return to room. Pt transfers back to recliner at end of tx. Pt has all needs met. Assessment Current Status: Good Progress Pt is motivated to continue to push through but CAR SHIFTER can tell pt is very fatigued. PT Short Term Goals Short Term Goals Time Frame: Dec 11, 2018 Gait (FIM): 1 Gait Distance Comment: 10' Gait Level of Assist: 3 Gait Assistive Device: Walker Robby Wheelchair Distance: 150' PT Nursing Home Goals Nursing Home Goals PT Public Health Clinical Nurse Specialist Goals Time Frame: Dec 25, 2018 Transfers (B,C,W/C) (FIM): 4 Sit to Lying (QC): 3 Lying-Sitting on Side/Bed(QC): 3 Sit to Stand (QC): 3 Rollin Roll Left to Right (QC): 3 Chair/Mhy-hw-Cbhpq Xfer(QC): 3 Car Transfer (QC): 3 Gait (FIM): 2 Distance: 50' Walk 10 feet (QC): 3 Walk 10ft-Uneven Surface(QC): 3 Walk 50ft with 2 Turns (QC): 3 Walk 150 ft (QC): 3 Gait Level of Assist: 4 Gait Assistive Device: Walker Robby Stairs (FIM): 1 # of Steps: 1 1 Step (curb) (QC): 3 Stairs Level Of Assist: 4 PT Plan Problem List Problem List: Activity Tolerance, Functional Strength, Balance, Gait Treatment/Plan Treatment Plan: Continue Plan of Care Treatment Plan: Bed Mobility, Concurrent Therapy, Education, Functional Activity Angelita, Functional Strength, Group Therapy, Gait, Safety, Therapeutic Exercise, Transfers Treatment Duration: Dec 25, 2018 Frequency: At least 5 of 7 days/Wk (IRF) Estimated Hrs Per Day: 1.5 hours per day Patient and/or Family Agrees t: Yes Safety Risks/Education Patient Education: Gait Training, Transfer Techniques, Correct Positioning, Safety Issues Teaching Recipient: Patient Teaching Methods: Discussion Response to Teaching: Verbalize Understanding Time/GCodes Time In: 1115 Time Out: 1200 Total Billed Treatment Time: 45 Total Billed Treatment 1, WCH (15m), EX (20m) & FA (10m) G Codes Necessary: MONY Lake CAR SHIFTER Dec 25, 2018 12:12
--- NOTE | 2018-12-25 12:34 | Occupational Ther Daily Note ---
OT Current Status-Daily Note Subjective No pain reported. Appearance Pt. up in chair. Agrees to OT. Mental Status/Objective Patient Orientation: Person, Place, Time, Situation Therapy Code Descriptions/Definitions Functional [place] Measure: 0=Not Assessed/NA 4=Minimal Assistance 1=Total Assistance 5=Supervision or Setup 2=Maximal Assistance 6=Modified [place] 3=Moderate Assistance 7=Complete [place] ADL-Treatment Therapy Code Descriptions/Definitions Functional [place] Measure: 0=Not Assessed/NA 4=Minimal Assistance 1=Total Assistance 5=Supervision or Setup 2=Maximal Assistance 6=Modified [place] 3=Moderate Assistance 7=Complete [place] Therapy Quality Codes: 6 Independent with activity with or without an assistive device 5 Patient requires set up or clean up by helper. Patient completes activity by themselves 4 Supervision or touching assist (CGA). [place] provide cues , steadying assist 3 The helper provides less than half the effort to complete the activity 2 The helper provides more than half the effort to complete the activity 1 Dependent. The helper does all the effort to complete an activity 7 Patient refused to complete or attempt activity 9 The patient did not perform the activity before the current illness or injury 88 Not attempted due to Medical conditions or safety concerns Grooming (FIM): 5 (Set up from wheelchair level to brush hair and teeth.) Oral Hygiene (QC): 5 Bathing (FIM): 5 (SBA in shower to wash all parts.) Shower/Bathe Self (QC): 4 Upper Body (FIM): 3 (Max assist to don bra. Min assist to don shirt.) Upper Body Dressing (QC): 3 Lower Body Dressing (FIM): 3 (Assist to pull underwear and pants over hips. Assist with socks and shoes due to time constraint.) Lower Body Dressing (QC): 3 On/Off Footwear (QC): 2 Toileting (FIM): 6 Toileting Hygiene (QC): 6 Transfers (B, C, W/C) (FIM): 5 (To and from wheelchair.) Toilet/Commode Transfer (FIM): 5 Toilet Transfer (QC): 4 Shower Transfer(FIM): 5 After ADLs, pt. was taken outside to practice getting into/out of this therapist 's car. Pt. states that her granddaughter has an SUV, and will likely be the one getting her from rehab. Pt. able to sit in SUV, with assist to get bilateral LE in. Problem solved with her on best way to transfer when discharging, to increase safety and independence. Pt. verbalized understanding. Went back to therapy area. Pt. tolerated 8 niraj-amps to left wrist extensors x 4 minutes, and then 6 niraj-amps to left hand for hand flexion x 6 minutes. Pt. was encouraged after this to work on AROM in all planes. Pt. has progressed in all joints, but requires assist for left shoulder. All needs are met back in room. Education OT Patient Education: Correct positioning, Exercise program, Modified ADL techniques, Progress toward Goal/Update tx plan, Purpose of tx/functional activities, Reviewed precautions, Rehab process, Transfer techniques Teaching Recipient: Patient Teaching Methods: Demonstration, Discussion Response to Teaching: Verbalize Understanding, Return Demonstration OT Short Term Goals Short Term Goals Time Frame: Dec 11, 2018 Upper Body Dressing(FIM): 3 Lower Body Dressing(FIM): 3 Toileting(FIM): 3 Toilet/Commode Transfer(FIM): 3 Additional Short Term Goals: 1-Demonstrate ADL Tasks, 2-Verbalize Understanding , 3-ImproveStrength/Angelita 1=Demonstrate adherence to instructed precautions during ADL tasks. 2=Patient will verbalize/demonstrate understanding of assistive devices/ modifications for ADL. 3=Patient will improve strength/tolerance for activity to enable patient to perform ADL's. OT Nursing Home Goals Newspaper Manager Goals Time Frame: Dec 28, 2018 Eating (FIM): 6 Eating (QC): 6 Groomin Oral Hygiene (QC): 6 Bathing(FIM): 4 Shower/Bathe Self (QC): 4 Upper Body Dressing(FIM): 5 Upper Body Dressing (QC): 5 Lower Body Dressing(FIM): 5 Lower Body Dressing (QC): 5 On/Off Footwear (QC): 5 Toileting(FIM): 5 Toileting Hygiene (QC): 5 Toilet/Commode Transfer(FIM): 5 Toilet/Commode Transfer (QC): 5 Shower Transfer(FIM): 5 Additional Goals: 1-Demonstrate ADL Tasks, 2-Verbalize Understanding, 3- ImproveStrength/Angelita 1=Demonstrate adherence to instructed precautions during ADL tasks. 2=Patient will verbalize/demonstrate understanding of assistive devices/ modifications for ADL. 3=Patient will improve strength/tolerance for activity to enable patient to perform ADL's. OT Education/Plan Problem List/Assessment Assessment: Decreased Activ Tolerance, Decreased UE Strength, Dependent Transfers, Impaired Bed Mobility, Impaired Funct Balance, Impaired I ADL's, Impaired Self-Care Skills, Restricted Funct UE ROM Discharge Recommendations Plan/Recommendations: Continue POC Therapy D/C Recommendations: Home w/ Family Support, Occupational Therapy Home Care, Scheduled Assistance Equpiment Recommendations-D/C: Hip Kit Treatment Plan/Plan of Care Treatment,Training & Education: Yes Patient would benefit from OT for education, treatment and training to promote independence in ADL's, mobility, safety and/or upper extremity function for ADL' s. Plan of Care: ADL Retraining, Functional Mobility, Group Exercise/Act as Ind, UE Funct Exercise/Act, UE Neuromus Re-Ed/Coord Treatment Duration: Dec 28, 2018 Frequency: 5 times per week Estimated Hrs Per Day: .5 hour per day Agreement: Yes Rehab Potential: Good Time/GCodes Start Time: 09:30 Stop Time: 10:45 Total Time Billed (hr/min): 75 Billed Treatment Time 1, ADL x 30minutes, FA x 30minutes, NM x 15minutes CHELI LOPEZ OT Dec 25, 2018 12:34
--- NOTE | 2018-12-25 14:30 | NUR ---
HAS HAD INCREASED PAIN AND TIREDNESS TODAY. ASSISTED TO BED, MEDICATED WITH LORTAB AND CPAP PUT ON TO TAKE A NAP.
--- NOTE | 2018-12-25 15:51 | Physical Therapy Daily Note ---
PT Daily Note-Current Subjective Pt sitting in recliner upon arrival. Pt agrees to PT but asks to transfer to bed to rest at end of tx. Pain Numeric Pain Scale: 5-Moderate Pain Location: Lower Location Body Site: Back Pain Description: Ache Mental Status Patient Orientation: Person, Place, Time, Situation Transfers Therapy Code Descriptions/Definitions Functional [place] Measure: 0=Not Assessed/NA 4=Minimal Assistance 1=Total Assistance 5=Supervision or Setup 2=Maximal Assistance 6=Modified [place] 3=Moderate Assistance 7=Complete [place] Therapy Quality Codes: 6 Independent with activity with or without an assistive device 5 Patient requires set up or clean up by helper. Patient completes activity by themselves 4 Supervision or touching assist (CGA). [place] provide cues , steadying assist 3 The helper provides less than half the effort to complete the activity 2 The helper provides more than half the effort to complete the activity 1 Dependent. The helper does all the effort to complete an activity 7 Patient refused to complete or attempt activity 9 The patient did not perform the activity before the current illness or injury 88 Not attempted due to Medical conditions or safety concerns Scootin Rollin Supine to/from Sit: 5 Sit to/from Stand: 5 Sit to Lying (QC): 5 Sit to Stand (QC): 5 Weight Bearing Right Lower Extremity: Right Full Weight Bearing Left Lower Extremity: Left Full Weight Bearing Exercises Supine Ex: Ankle pumps, Quad Set, Glut sets, Heel Slides, Straight leg raise, Hip abd/add Supine Reps: 20 Treatments Pt transfers from recliner to EOB. Pt transfers to Supine in bed to complete Supine Ex. Pt resting in bed at end of tx with all needs met. Assessment Current Status: Good Progress Pt can complete Ex well but is still very fatigued, hoping to rest after tx. PT Short Term Goals Short Term Goals Time Frame: Dec 11, 2018 Gait (FIM): 1 Gait Distance Comment: 10' Gait Level of Assist: 3 Gait Assistive Device: Walker Robby Wheelchair Distance: 150' PT Electronic Data Interchange Specialist Goals Usp Goals PT Usp Goals Time Frame: Dec 25, 2018 Transfers (B,C,W/C) (FIM): 4 Sit to Lying (QC): 3 Lying-Sitting on Side/Bed(QC): 3 Sit to Stand (QC): 3 Rollin Roll Left to Right (QC): 3 Chair/Dho-rn-Nltrg Xfer(QC): 3 Car Transfer (QC): 3 Gait (FIM): 2 Distance: 50' Walk 10 feet (QC): 3 Walk 10ft-Uneven Surface(QC): 3 Walk 50ft with 2 Turns (QC): 3 Walk 150 ft (QC): 3 Gait Level of Assist: 4 Gait Assistive Device: Walker Robby Stairs (FIM): 1 # of Steps: 1 1 Step (curb) (QC): 3 Stairs Level Of Assist: 4 PT Plan Problem List Problem List: Activity Tolerance, Functional Strength Treatment/Plan Treatment Plan: Continue Plan of Care Treatment Plan: Bed Mobility, Concurrent Therapy, Education, Functional Activity Angelita, Functional Strength, Group Therapy, Gait, Safety, Therapeutic Exercise, Transfers Treatment Duration: Dec 25, 2018 Frequency: At least 5 of 7 days/Wk (IRF) Estimated Hrs Per Day: 1.5 hours per day Patient and/or Family Agrees t: Yes Safety Risks/Education Patient Education: Transfer Techniques, Correct Positioning, Safety Issues Teaching Recipient: Patient Teaching Methods: Discussion Response to Teaching: Verbalize Understanding Time/GCodes Time In: 1330 Time Out: 1400 Total Billed Treatment Time: 30 Total Billed Treatment 1, FA (10m) & EX (20m) G Codes Necessary: MONY [place] MEASUREMENT AND SENSING TECHNICIAN Dec 25, 2018 15:50
[2018-12-25 18:00] VITALS: BP 114/56
[2018-12-25] MEDS: ATORVASTATIN 20 MG (LIPITOR) TABLET PO SCH (21:08)
[2018-12-26] MEDS: LEVOTHYROXINE 50 MCG (LEVOTHROID) TAB PO SCH (06:31)
[2018-12-26] MEDS: inSUlin ASPART (NovoLOG) 1 UNIT/0.01 ML (CHARGE PER UNIT) SC SCH ×4 (06:31→20:41)
[2018-12-26] MEDS: HYDROcodone/APAP 5 MG/325 MG (LORTAB) TAB PO PRN (06:34)
[2018-12-26 06:45] VITALS: BP 145/71
[2018-12-26] MEDS: amLODIPine 10 MG (NORVASC) TAB PO SCH (08:04)
[2018-12-26] MEDS: CELECOXIB 100 MG (CeleBREX) CAP PO SCH ×2 (08:05→20:41)
[2018-12-26] MEDS: DOCUSATE SODIUM 100 MG (COLACE) CAP PO SCH ×2 (08:05→20:42)
[2018-12-26] MEDS: PIOGLITAZONE 30MG (ACTOS) TAB PO SCH ×2 (08:05→20:41)
[2018-12-26] MEDS: ASPIRIN E.C. 81 MG (ECOTRIN) TAB PO SCH (08:05)
[2018-12-26] MEDS: PANTOPRAZOLE 20 MG TABLET (PROTONIX) PO SCH (08:05)
[2018-12-26] MEDS: TROLAMINE (ASPERCREME) 10% CR 90 GM TUBE TOP SCH ×2 (08:06→20:42)
[2018-12-26] MEDS: TRIAMTERENE/HCTZ 75-50 (MAXZIDE,DYAZIDE) TABLET PO SCH (08:06)
[2018-12-26] MEDS: ENOXAPARIN 40 MG/0.4 ML (LOVENOX) SYR SC SCH ×2 (08:06→20:41)
--- NOTE | 2018-12-26 08:59 | PM&R Progress Note ---
Subjective HPI/CC On Admission Date Seen by Provider: Dec 26, 2018 Time Seen by Provider: 08:30 Chief complaint: Stroke with left sided weakness and dysphasia. HPI: This is a 68yoWF who moved to [place] in 2011 but remained a patient of TERESA Monroe doctor who presented with left sided weakness diagnosed with a stroke (out of tPA window of candidacy) and has been actively pursuing rehab since that time. At this current time she is still have dysphasia and difficulty speaking but her thought process is intact and she will need intensive therapy for the left sided weakness. Curry catheter has been maintained and that will be discontinued. Bowels are moving she reports after meds were given. I reviewed all of her home medication that included Celebrex and will maintain on Aspirin and low dose Statin therapy following a stroke per protocol. Pt is agreeable for inpatient rehab and intensive therapy to regain function following a devastating stroke with left sided weakness. She lives at home alone. 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 Pt does have chronic pain, fibromyalgia, and osteoarthritis that she struggles with on an ongoing basis. Subjective/Events-last exam One more week of intensive therapies will likely help most Plans for DC home [facility] in addition to shower rails Day pass with daughter will be initiated this weekend Progressing well Overall participating in therapies Review of Systems General: Fatigue Objective Exam Vital Signs Vital Signs Date Time Temp Pulse Resp B/P (MAP) Pulse Ox O2 Delivery O2 Flow Rate FiO2 12/26/18 16:51 97.4 68 20 129/54 (79) 96 Room Air Capillary Refill : General Appearance: No Apparent Distress, WD/WN, Chronically ill, Obese HEENT: PERRL/EOMI, Normal ENT Inspection, Pharynx Normal, Moist Mucous Membranes Neck: Full Range of Motion, Normal Inspection, Non Tender, Supple Respiratory: Chest Non Tender, Lungs Clear, Normal Breath Sounds, No Accessory Muscle Use, No Respiratory Distress Cardiovascular: Regular Rate, Rhythm, No Edema, No Gallop, No JVD, No Murmur Gastrointestinal: Normal Bowel Sounds, No Organomegaly, No Pulsatile Mass, Non Tender, Soft Back: Normal Inspection, No CVA Tenderness, No Vertebral Tenderness Extremity: Normal Capillary Refill, Normal Inspection, Normal Range of Motion ( except left upper ad lower extremity weakness), Non Tender, No Calf Tenderness, No Pedal Edema Neurologic/Psychiatric: Alert, Oriented x3, Normal Mood/Affect, Facial Droop ( left), Motor Weakness (left sided weakness, left facial droop, thickened speech but today, 12/10/18 left hand manager credit risk improved and 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 Assessment/Plan Assessment and Plan Assess & Plan/Chief Complaint Assessment: s/p right [employer] HEALTH DOCTOR stroke with left sided weakness HTN HTG HLP Hypothyroidism STEPH on CPAP Hypokalemia chronic and allergic to supplement DM OOC DVT PPx with Lovenox Plan: Intensive PT/OT/Speech therapies Monitor bowel function Fall risk management Actos tolerated Continue statin and therapies DC home soon CPAP use (1) Acute right PUBLIC HEALTH DOCTOR stroke (2) DVT prophylaxis (3) Hyperglyceridemia (4) Hypokalemia (5) Weakness of left side of body (6) Difficulty speaking (7) Dysphagia (8) STEPH on CPAP (9) Non-insulin dependent type 2 diabetes mellitus (10) Essential (primary) hypertension (11) Obesity (12) Hypothyroidism Clinical Quality Measures DVT/VTE Risk/Contraindication: Risk Factor Score Per Nursin RFS Level Per Nursing on Admit: 4+=Very High LOREN MILLER DO Dec 26, 2018 08:59
--- NOTE | 2018-12-26 09:03 | Physical Therapy Daily Note ---
PT Daily Note-Current Subjective Pt. states she feels a little better today but had a lot of pain yesterday. Pt. states after rx that she feels much better about her ability to w/c and walk up down ramp. Pt. states she is having a ramp installed at home. Pain Numeric Pain Scale: 3 Location: Right Location Body Site: Shoulder Pain Description: Ache Mental Status Patient Orientation: Normal For Age Transfers Therapy Code Descriptions/Definitions Functional [place] Measure: 0=Not Assessed/NA 4=Minimal Assistance 1=Total Assistance 5=Supervision or Setup 2=Maximal Assistance 6=Modified [place] 3=Moderate Assistance 7=Complete [place] Therapy Quality Codes: 6 Independent with activity with or without an assistive device 5 Patient requires set up or clean up by helper. Patient completes activity by themselves 4 Supervision or touching assist (CGA). [place] provide cues , steadying assist 3 The helper provides less than half the effort to complete the activity 2 The helper provides more than half the effort to complete the activity 1 Dependent. The helper does all the effort to complete an activity 7 Patient refused to complete or attempt activity 9 The patient did not perform the activity before the current illness or injury 88 Not attempted due to Medical conditions or safety concerns Transfers (B, C, W/C) (FIM): 6 Scootin Rollin Supine to/from Sit: 6 Sit to/from Stand: 6 all TRFs mod I to SBA. up from flat surface right and left indep Weight Bearing Right Lower Extremity: Right Full Weight Bearing Left Lower Extremity: Left Full Weight Bearing Gait Training Does the Patient Walk?: Yes Gait (FIM): 5 Distance (FIM): 3=150 ft Gait Level of Assist: 5 Gait Persons Needed: 1 Gait Assistive Device: Walker Robby Wheelchair Training Does the Pt Use a Wheelchair?: Yes Wheelchair (FIM): 6 Wheelchair Distance: 3=150 ft (150x1, 50 x 4) Wheelchair Level of Assist: 6 Type of Wheelchair: Manual brakes bilat indep, pushes self up and down ramp for going down and backward going up with good control Exercises Supine Ex: Bridging, Ankle pumps, Rolling, Heel Slides, Short Arc Quads, Scooting, Straight leg raise, Hip abd/add Supine Reps: 15 Assessment Current Status: Good Progress good progress with all funct mob, TRFs, gait and w/c , up down ramps etc PT Short Term Goals Short Term Goals Time Frame: Dec 11, 2018 Gait (FIM): 1 Gait Distance Comment: 10' Gait Level of Assist: 3 Gait Assistive Device: Walker Robby Wheelchair Distance: 150' PT Mcfp Goals Meat Hostess Goals PT Meat Hostess Goals Time Frame: Dec 25, 2018 Transfers (B,C,W/C) (FIM): 4 Sit to Lying (QC): 3 Lying-Sitting on Side/Bed(QC): 3 Sit to Stand (QC): 3 Rollin Roll Left to Right (QC): 3 Chair/Kto-fx-Frbow Xfer(QC): 3 Car Transfer (QC): 3 Gait (FIM): 2 Distance: 50' Walk 10 feet (QC): 3 Walk 10ft-Uneven Surface(QC): 3 Walk 50ft with 2 Turns (QC): 3 Walk 150 ft (QC): 3 Gait Level of Assist: 4 Gait Assistive Device: Walker Robby Stairs (FIM): 1 # of Steps: 1 1 Step (curb) (QC): 3 Stairs Level Of Assist: 4 PT Plan Treatment/Plan Treatment Plan: Continue Plan of Care Treatment Plan: Bed Mobility, Concurrent Therapy, Education, Functional Activity Angelita, Functional Strength, Group Therapy, Gait, Safety, Therapeutic Exercise, Transfers Treatment Duration: Dec 25, 2018 Frequency: At least 5 of 7 days/Wk (IRF) Estimated Hrs Per Day: 1.5 hours per day Patient and/or Family Agrees t: Yes Safety Risks/Education Patient Education: Gait Training, Transfer Techniques, Correct Positioning, W/ C Management, Disease Process, Safety Issues Teaching Recipient: Patient Teaching Methods: Demonstration, Discussion Response to Teaching: Verbalize Understanding, Return Demonstration, Reinforcement Needed Time/GCodes Time In: 800 Time Out: 900 Total Billed Treatment Time: 60 Total Billed Treatment 1,w/c15m,GT15m,EX15m,FA15m G Codes Necessary: TAPAN Barton PTA Dec 26, 2018 09:03
--- NOTE | 2018-12-26 10:12 | Speech Therapy Daily Note ---
Speech Daily Progress Note Subjective Date Seen by Provider: Dec 26, 2018 Time Seen by Provider: 00:30 Patient states she is getting stronger every day. Objective Patient is consuming a regular diet level without difficulty. She utilizes the compensatory strategies as trained at 90% with minimal cues. Assessment Assessment Current Status: Good Progress Treatment Plan Continue Plan of Care Communication Comprehension: 7 Expression: 7 Social Cognition Social Interaction: 7 Problem Solvin Memory: 7 Speech Short Term Goals Short Term Goals Short Term Goals 1) Patient will utilize compensatory strategies as trained for safe oral intake of the least restrictive diet with 90% or greater. 2) Patient will demonstrate safe oral intake of the least restrictive diet level with 90% or greater. Speech Desizing Machine Operator Head End Goals Detention Goals Patient will maintain adequate nutrition/hydration via safe effective swallow function. Speech-Plan Patient/Family Goals Patient/Family Goals: Patient plans to return home with family support post rehab. Treatment Plan Speech Therapy Treatment Plan: Continue Plan of Care Patient is making good progress as a result of skilled therapy. Treatment Duration: Dec 28, 2018 Frequency: 5 times per week Estimated Hrs Per Day: .5 hour per day Rehab Potential: Good Barriers to Learning: New CVA with residual affects. Pt/Family Agrees to Plan: Yes Safety Risks/Education Teaching Recipient: Patient Teaching Methods: Discussion Response to Teaching: Verbalize Understanding Education Topics Provided: Continued safety of oral intake and choices in food items. Time Speech Therapy Time In: 09:00 Speech Therapy Time Out: 09:30 Total Billed Time: 30 Billed Treatment Time FEDERICO James MONTY Roland Dec 26, 2018 10:12
--- NOTE | 2018-12-26 13:17 | Occupational Ther Daily Note ---
OT Current Status-Daily Note Subjective No pain reported. Appearance Pt. in chair. Agrees to work with OT. Mental Status/Objective Patient Orientation: Person, Place, Time, Situation Therapy Code Descriptions/Definitions Functional [place] Measure: 0=Not Assessed/NA 4=Minimal Assistance 1=Total Assistance 5=Supervision or Setup 2=Maximal Assistance 6=Modified [place] 3=Moderate Assistance 7=Complete [place] ADL-Treatment Therapy Code Descriptions/Definitions Functional [place] Measure: 0=Not Assessed/NA 4=Minimal Assistance 1=Total Assistance 5=Supervision or Setup 2=Maximal Assistance 6=Modified [place] 3=Moderate Assistance 7=Complete [place] Therapy Quality Codes: 6 Independent with activity with or without an assistive device 5 Patient requires set up or clean up by helper. Patient completes activity by themselves 4 Supervision or touching assist (CGA). [place] provide cues , steadying assist 3 The helper provides less than half the effort to complete the activity 2 The helper provides more than half the effort to complete the activity 1 Dependent. The helper does all the effort to complete an activity 7 Patient refused to complete or attempt activity 9 The patient did not perform the activity before the current illness or injury 88 Not attempted due to Medical conditions or safety concerns Toileting (FIM): 6 Toileting Hygiene (QC): 6 Transfers (B, C, W/C) (FIM): 5 (SBA with vanesa cane to stand and transfer.) Toilet/Commode Transfer (FIM): 5 Toilet Transfer (QC): 5 Other Treatment Pt. up in chair and agrees to work with OT. Transferred to wheelchair and came to therapy dining area. Pt. tolerated e-stim to left wrist extensors x 8 niraj- amps x 10 minutes. While doing this, OT and pt talked extensively about home set up, needs for home, equipment needs, and a good system for pt. to have to make her as independent as possible. Pt. able to draw out her bathrooms and kitchen so that her and this therapist can process how pt. should do tasks at home with safe practices. Pt. practiced kitchen task, bathroom transfer with tub transfer bench, and laundry task. Some tasks are difficult to practice in this setting, as this is not pt's set up at home. Pt. will likely need a tub transfer bench, toilet riser without armrests, client technical specialist, DS, vanesa cane, love wheelchair, foam cushion. Pt. taken back to room and transferred to toilet with SBA. All needs met. Education OT Patient Education: Correct positioning, Modified ADL techniques, Progress toward Goal/Update tx plan, Purpose of tx/functional activities, Reviewed precautions, Rehab process, Transfer techniques, W/C management Teaching Recipient: Patient Teaching Methods: Demonstration, Discussion Response to Teaching: Verbalize Understanding, Return Demonstration OT Short Term Goals Short Term Goals Time Frame: Dec 11, 2018 Upper Body Dressing(FIM): 3 Lower Body Dressing(FIM): 3 Toileting(FIM): 3 Toilet/Commode Transfer(FIM): 3 Additional Short Term Goals: 1-Demonstrate ADL Tasks, 2-Verbalize Understanding , 3-ImproveStrength/Angelita 1=Demonstrate adherence to instructed precautions during ADL tasks. 2=Patient will verbalize/demonstrate understanding of assistive devices/ modifications for ADL. 3=Patient will improve strength/tolerance for activity to enable patient to perform ADL's. OT Prison Goals Tie Buyer Goals Time Frame: Dec 28, 2018 Eating (FIM): 6 Eating (QC): 6 Groomin Oral Hygiene (QC): 6 Bathing(FIM): 4 Shower/Bathe Self (QC): 4 Upper Body Dressing(FIM): 5 Upper Body Dressing (QC): 5 Lower Body Dressing(FIM): 5 Lower Body Dressing (QC): 5 On/Off Footwear (QC): 5 Toileting(FIM): 5 Toileting Hygiene (QC): 5 Toilet/Commode Transfer(FIM): 5 Toilet/Commode Transfer (QC): 5 Shower Transfer(FIM): 5 Additional Goals: 1-Demonstrate ADL Tasks, 2-Verbalize Understanding, 3- ImproveStrength/Angelita 1=Demonstrate adherence to instructed precautions during ADL tasks. 2=Patient will verbalize/demonstrate understanding of assistive devices/ modifications for ADL. 3=Patient will improve strength/tolerance for activity to enable patient to perform ADL's. OT Education/Plan Problem List/Assessment Assessment: Decreased Activ Tolerance, Decreased UE Strength, Dependent Transfers, Impaired I ADL's, Impaired Self-Care Skills, Restricted Funct UE ROM Discharge Recommendations Plan/Recommendations: Continue POC Therapy D/C Recommendations: Home w/ Family Support, Occupational Therapy Home Care Equpiment Recommendations-D/C: Hip Kit Treatment Plan/Plan of Care Treatment,Training & Education: Yes Patient would benefit from OT for education, treatment and training to promote independence in ADL's, mobility, safety and/or upper extremity function for ADL' s. Plan of Care: ADL Retraining, Functional Mobility, Group Exercise/Act as Ind, UE Funct Exercise/Act, UE Neuromus Re-Ed/Coord Treatment Duration: Dec 28, 2018 Frequency: 5 times per week Estimated Hrs Per Day: .5 hour per day Agreement: Yes Rehab Potential: Good Time/GCodes Start Time: 09:30 Stop Time: 10:45 Total Time Billed (hr/min): 75 Billed Treatment Time 1, NM x 30minutes, ADL x 45minutes CHELI LOPEZ OT Dec 26, 2018 13:17
--- NOTE | 2018-12-26 13:19 | Physical Therapy Daily Note ---
PT Daily Note-Current Subjective Pt. agrees to Rx. Wants to sit up in recliner after Rx for lunch and reading Pain Location: No Pain Reported Mental Status Patient Orientation: Normal For Age Transfers Therapy Code Descriptions/Definitions Functional [place] Measure: 0=Not Assessed/NA 4=Minimal Assistance 1=Total Assistance 5=Supervision or Setup 2=Maximal Assistance 6=Modified [place] 3=Moderate Assistance 7=Complete [place] Therapy Quality Codes: 6 Independent with activity with or without an assistive device 5 Patient requires set up or clean up by helper. Patient completes activity by themselves 4 Supervision or touching assist (CGA). [place] provide cues , steadying assist 3 The helper provides less than half the effort to complete the activity 2 The helper provides more than half the effort to complete the activity 1 Dependent. The helper does all the effort to complete an activity 7 Patient refused to complete or attempt activity 9 The patient did not perform the activity before the current illness or injury 88 Not attempted due to Medical conditions or safety concerns sit to stand x 10 trials all SBA Weight Bearing Right Lower Extremity: Right Full Weight Bearing Left Lower Extremity: Left Full Weight Bearing Gait Training Does the Patient Walk?: Yes Gait Assistive Device: Walker Robby 85ftx4 CGA, turning and chair approaches with turns 180 degrees, no LOB Exercises Seated Therapy Exercises: Ankle pumps, Sit to stand, Long arc quads, Hip flexion, Hip abd/add Seated Reps: 20 Assessment Current Status: Good Progress PT Short Term Goals Short Term Goals Time Frame: Dec 11, 2018 Gait (FIM): 1 Gait Distance Comment: 10' Gait Level of Assist: 3 Gait Assistive Device: Walker Robby Wheelchair Distance: 150' PT Mcfp Goals Mcfp Goals PT Mcfp Goals Time Frame: Dec 25, 2018 Transfers (B,C,W/C) (FIM): 4 Sit to Lying (QC): 3 Lying-Sitting on Side/Bed(QC): 3 Sit to Stand (QC): 3 Rollin Roll Left to Right (QC): 3 Chair/Xlr-uk-Kaijo Xfer(QC): 3 Car Transfer (QC): 3 Gait (FIM): 2 Distance: 50' Walk 10 feet (QC): 3 Walk 10ft-Uneven Surface(QC): 3 Walk 50ft with 2 Turns (QC): 3 Walk 150 ft (QC): 3 Gait Level of Assist: 4 Gait Assistive Device: Walker Robby Stairs (FIM): 1 # of Steps: 1 1 Step (curb) (QC): 3 Stairs Level Of Assist: 4 PT Plan Treatment/Plan Treatment Plan: Continue Plan of Care Treatment Plan: Bed Mobility, Concurrent Therapy, Education, Functional Activity Angelita, Functional Strength, Group Therapy, Gait, Safety, Therapeutic Exercise, Transfers Treatment Duration: Dec 25, 2018 Frequency: At least 5 of 7 days/Wk (IRF) Estimated Hrs Per Day: 1.5 hours per day Patient and/or Family Agrees t: Yes Time/GCodes Time In: 1250 Time Out: 1315 Total Billed Treatment Time: 25 Total Billed Treatment 1,EX10m,Gt15m G Codes Necessary: No TAPAN HANSEN GUN FITTER Dec 26, 2018 13:19
--- NOTE | 2018-12-26 15:05 | NUR ---
SUPERVISOR FITTING met with patient to review Team Conference Summary. Patient continues to progress and tolerate therapies. As patient has continued to gain return following CVA, team has recommended discharge on 01/02. Within the next week, patient will work to increase gait distance, balance, transfers and OT skills prior to discharge next week. SUPERVISOR FITTING discussed need for home modifications including ramp and bathroom grab bar installation, patient [facility] both [facility]. Patient will pay privately for ramp and has already been in contact with an individual for completion prior to discharge. SUPERVISOR FITTING suggested patient postpone placement of grab bars until [facility] PT completes assessment for guidance of placement. Patient is eager to return home. SUPERVISOR FITTING reviewed recommendations of equipment, SUPERVISOR FITTING will explore pricing options for patient. Patient also inquired about ability to obtain Dr. Renaldo Banegas as new PCP, SUPERVISOR FITTING has contacted Dr. Banegas's office to inquire about openings. Staff will present information to Dr. Banegas for review. Patient also requested a notary for AD completion. SUPERVISOR FITTING contacted Renee, Associate for completion. As discussed previously, patient remains interested in hiring private duty care through a home care provider. SUPERVISOR FITTING provided patient with information for [facility] and [facility]. SUPERVISOR FITTING will continue to follow for additional needs.
[2018-12-26 16:51] VITALS: BP 129/54
[2018-12-26] MEDS: ATORVASTATIN 20 MG (LIPITOR) TABLET PO SCH (20:41)
[2018-12-26] MEDS: ACETAMINOPHEN 500 MG TAB (TYLENOL) PO PRN (22:14)
[2018-12-27] MEDS: LEVOTHYROXINE 50 MCG (LEVOTHROID) TAB PO SCH (05:29)
[2018-12-27] MEDS: HYDROcodone/APAP 5 MG/325 MG (LORTAB) TAB PO PRN ×2 (05:30→15:41)
[2018-12-27] MEDS: inSUlin ASPART (NovoLOG) 1 UNIT/0.01 ML (CHARGE PER UNIT) SC SCH ×4 (05:36→21:20)
[2018-12-27 05:46] VITALS: BP 152/70
[2018-12-27] MEDS: ENOXAPARIN 40 MG/0.4 ML (LOVENOX) SYR SC SCH ×2 (08:24→21:08)
[2018-12-27] MEDS: amLODIPine 10 MG (NORVASC) TAB PO SCH (08:25)
[2018-12-27] MEDS: CELECOXIB 100 MG (CeleBREX) CAP PO SCH ×2 (08:25→21:06)
[2018-12-27] MEDS: PANTOPRAZOLE 20 MG TABLET (PROTONIX) PO SCH (08:25)
[2018-12-27] MEDS: TRIAMTERENE/HCTZ 75-50 (MAXZIDE,DYAZIDE) TABLET PO SCH (08:25)
[2018-12-27] MEDS: ASPIRIN E.C. 81 MG (ECOTRIN) TAB PO SCH (08:25)
[2018-12-27] MEDS: PIOGLITAZONE 30MG (ACTOS) TAB PO SCH ×2 (08:25→21:07)
--- NOTE | 2018-12-27 08:28 | Physical Therapy Daily Note ---
PT Daily Note-Current Subjective Patient in recliner pre tx, agrees to PT, has 6/10 pain "all over" but worse on the right side. Appearance Patient in recliner post tx with nurse call, phone, tray, all needs met. Mental Status Patient Orientation: Person, Place, Situation Transfers Therapy Code Descriptions/Definitions Functional [place] Measure: 0=Not Assessed/NA 4=Minimal Assistance 1=Total Assistance 5=Supervision or Setup 2=Maximal Assistance 6=Modified [place] 3=Moderate Assistance 7=Complete [place] Therapy Quality Codes: 6 Independent with activity with or without an assistive device 5 Patient requires set up or clean up by helper. Patient completes activity by themselves 4 Supervision or touching assist (CGA). [place] provide cues , steadying assist 3 The helper provides less than half the effort to complete the activity 2 The helper provides more than half the effort to complete the activity 1 Dependent. The helper does all the effort to complete an activity 7 Patient refused to complete or attempt activity 9 The patient did not perform the activity before the current illness or injury 88 Not attempted due to Medical conditions or safety concerns Transfers (B, C, W/C) (FIM): 4 Sit to/from Stand: 4 Bed to/from Chair: 4 min assist for sit to stand from low surfaces Weight Bearing Right Lower Extremity: Right Full Weight Bearing Left Lower Extremity: Left Full Weight Bearing Gait Training Gait (FIM): 2 Distance: 120', 60'x2 Gait Level of Assist: 4 Gait Persons Needed: 1 Gait Assistive Device: Walker Robby CGA, patient ambulates with wide DELFIN[place], halting gait, keeps hemiwalker in front of her in the way of her feet instead of to the side. Patient doesn't want to try a quad cane yet. Treatments transfers, ambulation Assessment Current Status: Fair Progress improving endurance and ambulation PT Short Term Goals Short Term Goals Time Frame: Dec 11, 2018 Gait (FIM): 1 Gait Distance Comment: 10' Gait Level of Assist: 3 Gait Assistive Device: Walker Robby Wheelchair Distance: 150' PT Usp Goals Usp Goals PT Usp Goals Time Frame: Dec 25, 2018 Transfers (B,C,W/C) (FIM): 4 Sit to Lying (QC): 3 Lying-Sitting on Side/Bed(QC): 3 Sit to Stand (QC): 3 Rollin Roll Left to Right (QC): 3 Chair/Rik-jc-Jxbno Xfer(QC): 3 Car Transfer (QC): 3 Gait (FIM): 2 Distance: 50' Walk 10 feet (QC): 3 Walk 10ft-Uneven Surface(QC): 3 Walk 50ft with 2 Turns (QC): 3 Walk 150 ft (QC): 3 Gait Level of Assist: 4 Gait Assistive Device: Walker Robby Stairs (FIM): 1 # of Steps: 1 1 Step (curb) (QC): 3 Stairs Level Of Assist: 4 PT Plan Problem List Problem List: Activity Tolerance, Functional Strength, Safety, Balance, Gait, Transfer, Bed Mobility, ROM Treatment/Plan Treatment Plan: Continue Plan of Care Treatment Plan: Bed Mobility, Concurrent Therapy, Education, Functional Activity Angelita, Functional Strength, Group Therapy, Gait, Safety, Therapeutic Exercise, Transfers Treatment Duration: Dec 25, 2018 Frequency: At least 5 of 7 days/Wk (IRF) Estimated Hrs Per Day: 1.5 hours per day Patient and/or Family Agrees t: Yes Safety Risks/Education Patient Education: Gait Training, Transfer Techniques, Correct Positioning, Safety Issues Teaching Recipient: Patient Teaching Methods: Demonstration, Discussion Response to Teaching: Reinforcement Needed Time/GCodes Time In: 0800 Time Out: 0830 Total Billed Treatment Time: 30 Total Billed Treatment 1 visit GT 30' MEGHAN DYER PT Dec 27, 2018 08:28
--- NOTE | 2018-12-27 08:39 | PM&R Progress Note ---
Subjective HPI/CC On Admission Date Seen by Provider: Dec 27, 2018 Time Seen by Provider: 08:45 Chief complaint: Stroke with left sided weakness and dysphasia. HPI: This is a 68yoWF who moved to [place] in 2011 but remained a patient of TERESA Monroe doctor who presented with left sided weakness diagnosed with a stroke (out of tPA window of candidacy) and has been actively pursuing rehab since that time. At this current time she is still have dysphasia and difficulty speaking but her thought process is intact and she will need intensive therapy for the left sided weakness. Curry catheter has been maintained and that will be discontinued. Bowels are moving she reports after meds were given. I reviewed all of her home medication that included Celebrex and will maintain on Aspirin and low dose Statin therapy following a stroke per protocol. Pt is agreeable for inpatient rehab and intensive therapy to regain function following a devastating stroke with left sided weakness. She lives at home alone. 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 Pt does have chronic pain, fibromyalgia, and osteoarthritis that she struggles with on an ongoing basis. Subjective/Events-last exam One more week of intensive therapies will likely help most and she agrees Plans for DC home and a day pass will need Ramp is being placed by ngozi on Monday Day pass with daughter will be initiated this weekend but may not be able to Progressing well Overall participating in therapies Review of Systems General: Fatigue Objective Exam Vital Signs Vital Signs Date Time Temp Pulse Resp B/P (MAP) Pulse Ox O2 Delivery O2 Flow Rate FiO2 12/27/18 09:00 Room Air 12/27/18 05:46 97.9 68 20 152/70 (97) 96 Capillary Refill : General Appearance: No Apparent Distress, WD/WN, Chronically ill, Obese HEENT: PERRL/EOMI, Normal ENT Inspection, Pharynx Normal, Moist Mucous Membranes Neck: Full Range of Motion, Normal Inspection, Non Tender, Supple Respiratory: Chest Non Tender, Lungs Clear, Normal Breath Sounds, No Accessory Muscle Use, No Respiratory Distress Cardiovascular: Regular Rate, Rhythm, No Edema, No Gallop, No JVD, No Murmur Gastrointestinal: Normal Bowel Sounds, No Organomegaly, No Pulsatile Mass, Non Tender, Soft Back: Normal Inspection, No CVA Tenderness, No Vertebral Tenderness Extremity: Normal Capillary Refill, Normal Inspection, Normal Range of Motion ( except left upper ad lower extremity weakness), Non Tender, No Calf Tenderness, No Pedal Edema Neurologic/Psychiatric: Alert, Oriented x3, Normal Mood/Affect, Facial Droop ( left), Motor Weakness (left sided weakness, left facial droop, thickened speech but today, 12/10/18 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 with left sided weakness HTN HTG HLP Hypothyroidism STEPH on CPAP Hypokalemia chronic and allergic to supplement DM OOC DVT PPx with Lovenox Plan: Intensive PT/OT/Speech therapies Monitor bowel function Fall risk management Actos tolerated Continue statin and therapies DC home soon CPAP use (1) Acute right PANELBOARD TANK PUMPER stroke (2) DVT prophylaxis (3) Hyperglyceridemia (4) Hypokalemia (5) Weakness of left side of body (6) Difficulty speaking (7) Dysphagia (8) STEPH on CPAP (9) Non-insulin dependent type 2 diabetes mellitus (10) Essential (primary) hypertension (11) Obesity (12) Hypothyroidism Clinical Quality Measures DVT/VTE Risk/Contraindication: Risk Factor Score Per Nursin RFS Level Per Nursing on Admit: 4+=Very High LOREN MILLER DO Dec 27, 2018 08:39
[2018-12-27] MEDS: DOCUSATE SODIUM 100 MG (COLACE) CAP PO SCH ×2 (09:00→21:07)
--- NOTE | 2018-12-27 09:15 | Physical Therapy Daily Note ---
PT Daily Note-Current Subjective Patient in recliner pre tx, agrees to PT, has pain in right side, nurse notified. Appearance Patient in recliner post tx with nurse call, phone, tray, all needs met. Mental Status Patient Orientation: Person, Place, Situation Transfers Therapy Code Descriptions/Definitions Functional [place] Measure: 0=Not Assessed/NA 4=Minimal Assistance 1=Total Assistance 5=Supervision or Setup 2=Maximal Assistance 6=Modified [place] 3=Moderate Assistance 7=Complete [place] Therapy Quality Codes: 6 Independent with activity with or without an assistive device 5 Patient requires set up or clean up by helper. Patient completes activity by themselves 4 Supervision or touching assist (CGA). [place] provide cues , steadying assist 3 The helper provides less than half the effort to complete the activity 2 The helper provides more than half the effort to complete the activity 1 Dependent. The helper does all the effort to complete an activity 7 Patient refused to complete or attempt activity 9 The patient did not perform the activity before the current illness or injury 88 Not attempted due to Medical conditions or safety concerns Weight Bearing Right Lower Extremity: Right Full Weight Bearing Left Lower Extremity: Left Full Weight Bearing Exercises Seated Therapy Exercises: Ankle pumps, Hip flexion Seated Reps: 20 LAQ alternating for 5 min Treatments seated exercises Assessment Current Status: Fair Progress patient has active dorsiflexion on the left side PT Short Term Goals Short Term Goals Time Frame: Dec 11, 2018 Gait (FIM): 1 Gait Distance Comment: 10' Gait Level of Assist: 3 Gait Assistive Device: Walker Robby Wheelchair Distance: 150' PT Assembler Wire Group Goals Chcf Goals PT Chcf Goals Time Frame: Dec 25, 2018 Transfers (B,C,W/C) (FIM): 4 Sit to Lying (QC): 3 Lying-Sitting on Side/Bed(QC): 3 Sit to Stand (QC): 3 Rollin Roll Left to Right (QC): 3 Chair/Pap-xr-Bttnj Xfer(QC): 3 Car Transfer (QC): 3 Gait (FIM): 2 Distance: 50' Walk 10 feet (QC): 3 Walk 10ft-Uneven Surface(QC): 3 Walk 50ft with 2 Turns (QC): 3 Walk 150 ft (QC): 3 Gait Level of Assist: 4 Gait Assistive Device: Walker Robby Stairs (FIM): 1 # of Steps: 1 1 Step (curb) (QC): 3 Stairs Level Of Assist: 4 PT Plan Problem List Problem List: Activity Tolerance, Functional Strength, Safety, Balance, Gait, Transfer, Bed Mobility, ROM Treatment/Plan Treatment Plan: Continue Plan of Care Treatment Plan: Bed Mobility, Concurrent Therapy, Education, Functional Activity Angelita, Functional Strength, Group Therapy, Gait, Safety, Therapeutic Exercise, Transfers Treatment Duration: Dec 25, 2018 Frequency: At least 5 of 7 days/Wk (IRF) Estimated Hrs Per Day: 1.5 hours per day Patient and/or Family Agrees t: Yes Safety Risks/Education Patient Education: Correct Positioning, Safety Issues Teaching Recipient: Patient Teaching Methods: Demonstration, Discussion Response to Teaching: Reinforcement Needed Time/GCodes Time In: 0900 Time Out: 914 Total Billed Treatment Time: 15 Total Billed Treatment 1 visit EX Alirio' MEGHAN DYER PT Dec 27, 2018 09:15
[2018-12-27] MEDS: ACETAMINOPHEN 500 MG TAB (TYLENOL) PO PRN ×2 (09:19→22:57)
[2018-12-27] MEDS: TROLAMINE (ASPERCREME) 10% CR 90 GM TUBE TOP SCH ×2 (09:20→21:22)
--- NOTE | 2018-12-27 09:59 | Speech Therapy Daily Note ---
Speech Daily Progress Note Subjective Date Seen by Provider: Dec 27, 2018 Time Seen by Provider: 00:30 The patient was resting after PT when I arrived for her therapy. Objective The patient completed her morning oral intake at 90% with utilization of compensatory strategies given minimal cues. Assessment Assessment Current Status: Good Progress Treatment Plan Continue Plan of Care Communication Comprehension: 7 Expression: 7 Social Cognition Social Interaction: 7 Problem Solvin Memory: 7 Speech Short Term Goals Short Term Goals Short Term Goals 1) Patient will utilize compensatory strategies as trained for safe oral intake of the least restrictive diet with 90% or greater. 2) Patient will demonstrate safe oral intake of the least restrictive diet level with 90% or greater. Speech Manager Hotel Goals Group Home Goals Patient will maintain adequate nutrition/hydration via safe effective swallow function. Speech-Plan Patient/Family Goals Patient/Family Goals: The patient plans to return home next week post rehab. She will have family support. Treatment Plan Speech Therapy Treatment Plan: Continue Plan of Care Patient is progressing well as a result of skilled ST. Treatment Duration: Dec 28, 2018 Frequency: 5 times per week Estimated Hrs Per Day: .5 hour per day Rehab Potential: Good Barriers to Learning: New CVA Pt/Family Agrees to Plan: Yes Safety Risks/Education Teaching Recipient: Patient Teaching Methods: Discussion Response to Teaching: Verbalize Understanding Education Topics Provided: Continued safety of oral intake. Time Speech Therapy Time In: 08:30 Speech Therapy Time Out: 09:00 Total Billed Time: 30 Billed Treatment Time 1, MONTY Dean Dec 27, 2018 09:59
--- NOTE | 2018-12-27 11:09 | Physical Therapy Daily Note ---
PT Daily Note-Current Subjective Patient in therapy gym pre tx (just got through with OT), agrees to PT, verbalizes no complaints of pain. Appearance Patient in recliner post tx with nurse call, phone, tray, all needs met. Mental Status Patient Orientation: Person, Place, Situation Transfers Therapy Code Descriptions/Definitions Functional [place] Measure: 0=Not Assessed/NA 4=Minimal Assistance 1=Total Assistance 5=Supervision or Setup 2=Maximal Assistance 6=Modified [place] 3=Moderate Assistance 7=Complete [place] Therapy Quality Codes: 6 Independent with activity with or without an assistive device 5 Patient requires set up or clean up by helper. Patient completes activity by themselves 4 Supervision or touching assist (CGA). [place] provide cues , steadying assist 3 The helper provides less than half the effort to complete the activity 2 The helper provides more than half the effort to complete the activity 1 Dependent. The helper does all the effort to complete an activity 7 Patient refused to complete or attempt activity 9 The patient did not perform the activity before the current illness or injury 88 Not attempted due to Medical conditions or safety concerns Bed to/from Chair: 4 Weight Bearing Right Lower Extremity: Right Full Weight Bearing Left Lower Extremity: Left Full Weight Bearing Gait Training Gait (FIM): 4 Distance: 150', 20' Gait Level of Assist: 4 Gait Persons Needed: 1 Gait Assistive Device: Walker Robby CGA, wide [place], slow, keeps hemiwalker in front instead of to the side Exercises NuStep Minutes: 15 NuStep Workload: 4 Treatments transfers, ambulation, functional strengthening Assessment Current Status: Fair Progress improving endurance PT Short Term Goals Short Term Goals Time Frame: Dec 11, 2018 Gait (FIM): 1 Gait Distance Comment: 10' Gait Level of Assist: 3 Gait Assistive Device: Walker Robby Wheelchair Distance: 150' PT Fpc Goals Fpc Goals PT Fpc Goals Time Frame: Dec 25, 2018 Transfers (B,C,W/C) (FIM): 4 Sit to Lying (QC): 3 Lying-Sitting on Side/Bed(QC): 3 Sit to Stand (QC): 3 Rollin Roll Left to Right (QC): 3 Chair/Rso-ki-Ciulj Xfer(QC): 3 Car Transfer (QC): 3 Gait (FIM): 2 Distance: 50' Walk 10 feet (QC): 3 Walk 10ft-Uneven Surface(QC): 3 Walk 50ft with 2 Turns (QC): 3 Walk 150 ft (QC): 3 Gait Level of Assist: 4 Gait Assistive Device: Walker Robby Stairs (FIM): 1 # of Steps: 1 1 Step (curb) (QC): 3 Stairs Level Of Assist: 4 PT Plan Problem List Problem List: Activity Tolerance, Functional Strength, Safety, Balance, Gait, Transfer, Bed Mobility, ROM Treatment/Plan Treatment Plan: Continue Plan of Care Treatment Plan: Bed Mobility, Concurrent Therapy, Education, Functional Activity Angelita, Functional Strength, Group Therapy, Gait, Safety, Therapeutic Exercise, Transfers Treatment Duration: Dec 25, 2018 Frequency: At least 5 of 7 days/Wk (IRF) Estimated Hrs Per Day: 1.5 hours per day Patient and/or Family Agrees t: Yes Safety Risks/Education Patient Education: Gait Training, Transfer Techniques, Correct Positioning, Safety Issues Teaching Recipient: Patient Teaching Methods: Demonstration, Discussion Response to Teaching: Reinforcement Needed Time/GCodes Time In: 1030 Time Out: 1115 Total Billed Treatment Time: 45 Total Billed Treatment 1 visit EX 15' FA 10' GT 20' MEGHAN DYER PT Dec 27, 2018 11:09
--- NOTE | 2018-12-27 12:56 | Occupational Ther Daily Note ---
OT Current Status-Daily Note Subjective No pain reported. Appearance Pt. up in chair. Agrees to work with OT. Mental Status/Objective Patient Orientation: Person, Place, Time, Situation Therapy Code Descriptions/Definitions Functional [place] Measure: 0=Not Assessed/NA 4=Minimal Assistance 1=Total Assistance 5=Supervision or Setup 2=Maximal Assistance 6=Modified [place] 3=Moderate Assistance 7=Complete [place] ADL-Treatment Therapy Code Descriptions/Definitions Functional [place] Measure: 0=Not Assessed/NA 4=Minimal Assistance 1=Total Assistance 5=Supervision or Setup 2=Maximal Assistance 6=Modified [place] 3=Moderate Assistance 7=Complete [place] Therapy Quality Codes: 6 Independent with activity with or without an assistive device 5 Patient requires set up or clean up by helper. Patient completes activity by themselves 4 Supervision or touching assist (CGA). [place] provide cues , steadying assist 3 The helper provides less than half the effort to complete the activity 2 The helper provides more than half the effort to complete the activity 1 Dependent. The helper does all the effort to complete an activity 7 Patient refused to complete or attempt activity 9 The patient did not perform the activity before the current illness or injury 88 Not attempted due to Medical conditions or safety concerns Grooming (FIM): 5 (SBA in stance at sink to brush hair and teeth.) Oral Hygiene (QC): 4 Bathing (FIM): 5 Shower/Bathe Self (QC): 4 Upper Body (FIM): 3 (Pt. required assist to don bra, but able to don shirt with SBA.) Upper Body Dressing (QC): 3 Lower Body Dressing (FIM): 5 (Pt. transferred to bed after shower. Worked on multiple various ways to safely and independently don LE clothing. Pt. was able to don all pieces with AE with SBA and increased time needed.) Lower Body Dressing (QC): 4 On/Off Footwear (QC): 4 Toileting (FIM): 6 Toileting Hygiene (QC): 6 Transfers (B, C, W/C) (FIM): 5 Toilet/Commode Transfer (FIM): 6 Toilet Transfer (QC): 6 Shower Transfer(FIM): 5 Other Treatment Pt. and OT talked about different methods and ways to complete tasks at home to make tasks more simple. Pt. was able to dress self today with use of trash can to prop up left foot for sock and shoe placement. Pt. was also able to fully pull up underwear and pants over hips with use of dressing stick. OT also encourages use of house dresses and good slip on shoes at home, without socks, if this means that pt. can be more fully independent. Pt. verbalizes understanding. Education OT Patient Education: Correct positioning, Modified ADL techniques, Progress toward Goal/Update tx plan, Purpose of tx/functional activities, Reviewed precautions, Rehab process, Transfer techniques, Use of adapted equipment Teaching Recipient: Patient Teaching Methods: Demonstration, Discussion Response to Teaching: Verbalize Understanding, Return Demonstration OT Short Term Goals Short Term Goals Time Frame: Dec 11, 2018 Upper Body Dressing(FIM): 3 Lower Body Dressing(FIM): 3 Toileting(FIM): 3 Toilet/Commode Transfer(FIM): 3 Additional Short Term Goals: 1-Demonstrate ADL Tasks, 2-Verbalize Understanding , 3-ImproveStrength/Angelita 1=Demonstrate adherence to instructed precautions during ADL tasks. 2=Patient will verbalize/demonstrate understanding of assistive devices/ modifications for ADL. 3=Patient will improve strength/tolerance for activity to enable patient to perform ADL's. OT Production Support Engineer Goals Assisted Goals Time Frame: Dec 28, 2018 Eating (FIM): 6 Eating (QC): 6 Groomin Oral Hygiene (QC): 6 Bathing(FIM): 4 Shower/Bathe Self (QC): 4 Upper Body Dressing(FIM): 5 Upper Body Dressing (QC): 5 Lower Body Dressing(FIM): 5 Lower Body Dressing (QC): 5 On/Off Footwear (QC): 5 Toileting(FIM): 5 Toileting Hygiene (QC): 5 Toilet/Commode Transfer(FIM): 5 Toilet/Commode Transfer (QC): 5 Shower Transfer(FIM): 5 Additional Goals: 1-Demonstrate ADL Tasks, 2-Verbalize Understanding, 3- ImproveStrength/Angelita 1=Demonstrate adherence to instructed precautions during ADL tasks. 2=Patient will verbalize/demonstrate understanding of assistive devices/ modifications for ADL. 3=Patient will improve strength/tolerance for activity to enable patient to perform ADL's. OT Education/Plan Problem List/Assessment Assessment: Decreased Activ Tolerance, Decreased UE Strength, Impaired I ADL's , Impaired Self-Care Skills, Restricted Funct UE ROM Discharge Recommendations Plan/Recommendations: Continue POC Therapy D/C Recommendations: Home w/ Family Support, Occupational Therapy Home Care Equpiment Recommendations-D/C: Extended Bath Bench, Russian Language Professor, Hip Kit, Toilet Riser Treatment Plan/Plan of Care Treatment,Training & Education: Yes Patient would benefit from OT for education, treatment and training to promote independence in ADL's, mobility, safety and/or upper extremity function for ADL' s. Plan of Care: ADL Retraining, Functional Mobility, Group Exercise/Act as Ind, UE Funct Exercise/Act, UE Neuromus Re-Ed/Coord Treatment Duration: Dec 28, 2018 Frequency: 5 times per week Estimated Hrs Per Day: 1.5 hours per day Agreement: Yes Rehab Potential: Good Time/GCodes Start Time: 09:15 Stop Time: 10:30 Total Time Billed (hr/min): 75 Billed Treatment Time 1, ADL x 60minutes, Ex x 15minutes CHELI LOPEZ OT Dec 27, 2018 12:56
[2018-12-27 18:00] VITALS: BP 130/56
[2018-12-27] MEDS: ATORVASTATIN 20 MG (LIPITOR) TABLET PO SCH (21:07)
[2018-12-28] MEDS: LEVOTHYROXINE 50 MCG (LEVOTHROID) TAB PO SCH (06:06)
[2018-12-28] MEDS: HYDROcodone/APAP 5 MG/325 MG (LORTAB) TAB PO PRN (06:06)
[2018-12-28 06:09] VITALS: BP 133/83
[2018-12-28] MEDS: inSUlin ASPART (NovoLOG) 1 UNIT/0.01 ML (CHARGE PER UNIT) SC SCH ×4 (06:19→21:25)
--- NOTE | 2018-12-28 08:41 | PM&R Progress Note ---
Subjective HPI/CC On Admission Date Seen by Provider: Dec 28, 2018 Time Seen by Provider: 08:45 Chief complaint: Stroke with left sided weakness and dysphasia. HPI: This is a 68yoWF who moved to [place] in 2011 but remained a patient of TERESA Monroe doctor who presented with left sided weakness diagnosed with a stroke (out of tPA window of candidacy) and has been actively pursuing rehab since that time. At this current time she is still have dysphasia and difficulty speaking but her thought process is intact and she will need intensive therapy for the left sided weakness. Curry catheter has been maintained and that will be discontinued. Bowels are moving she reports after meds were given. I reviewed all of her home medication that included Celebrex and will maintain on Aspirin and low dose Statin therapy following a stroke per protocol. Pt is agreeable for inpatient rehab and intensive therapy to regain function following a devastating stroke with left sided weakness. She lives at home alone. 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 Pt does have chronic pain, fibromyalgia, and osteoarthritis that she struggles with on an ongoing basis. Subjective/Events-last exam One more week of intensive therapies will likely help most and she agrees and she is participating [facility] there has been a delay in that plan Day pass unable to be arranged with her daughter Progressing well Overall participating in therapies Somatic complaints every day Slept well Review of Systems General: Fatigue Neurological: Weakness, Numbness, Incoordination Objective Exam Vital Signs Vital Signs Date Time Temp Pulse Resp B/P (MAP) Pulse Ox O2 Delivery O2 Flow Rate FiO2 12/28/18 09:00 Room Air 12/28/18 06:09 98.2 64 18 133/83 (100) 94 Capillary Refill : General Appearance: No Apparent Distress, WD/WN, Chronically ill, Obese HEENT: PERRL/EOMI, Normal ENT Inspection, Pharynx Normal, Moist Mucous Membranes Neck: Full Range of Motion, Normal Inspection, Non Tender, Supple Respiratory: Chest Non Tender, Lungs Clear, Normal Breath Sounds, No Accessory Muscle Use, No Respiratory Distress Cardiovascular: Regular Rate, Rhythm, No Edema, No Gallop, No JVD, No Murmur Gastrointestinal: Normal Bowel Sounds, No Organomegaly, No Pulsatile Mass, Non Tender, Soft Back: Normal Inspection, No CVA Tenderness, No Vertebral Tenderness Extremity: Normal Capillary Refill, Normal Inspection, Normal Range of Motion ( except left upper ad lower extremity weakness), Non Tender, No Calf Tenderness, No Pedal Edema Neurologic/Psychiatric: Alert, Oriented x3, Normal Mood/Affect, Facial Droop ( left), Motor Weakness (left sided weakness, left facial droop, thickened speech but today, 12/10/18 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 HTN HTG HLP Hypothyroidism STEPH on CPAP Hypokalemia chronic and allergic to supplement DM OOC DVT PPx with Lovenox Plan: Intensive PT/OT/Speech therapies Monitor bowel function Fall risk management Actos tolerated Continue statin and therapies DC home soon once barriers to DC are resolved: ramp for wheelchair, rails in shower, replaced CPAP CPAP use (1) Acute right SOFTWARE MANAGER stroke (2) DVT prophylaxis (3) Hyperglyceridemia (4) Hypokalemia (5) Weakness of left side of body (6) Difficulty speaking (7) Dysphagia (8) STEPH on CPAP (9) Non-insulin dependent type 2 diabetes mellitus (10) Essential (primary) hypertension (11) Obesity (12) Hypothyroidism Clinical Quality Measures DVT/VTE Risk/Contraindication: Risk Factor Score Per Nursin RFS Level Per Nursing on Admit: 4+=Very High LOREN MILLER DO Dec 28, 2018 08:41
[2018-12-28] MEDS: ENOXAPARIN 40 MG/0.4 ML (LOVENOX) SYR SC SCH ×2 (09:52→21:25)
[2018-12-28] MEDS: ASPIRIN E.C. 81 MG (ECOTRIN) TAB PO SCH (09:53)
[2018-12-28] MEDS: TRIAMTERENE/HCTZ 75-50 (MAXZIDE,DYAZIDE) TABLET PO SCH (09:53)
[2018-12-28] MEDS: DOCUSATE SODIUM 100 MG (COLACE) CAP PO SCH ×2 (09:53→21:51)
[2018-12-28] MEDS: CELECOXIB 100 MG (CeleBREX) CAP PO SCH ×2 (09:53→21:24)
[2018-12-28] MEDS: amLODIPine 10 MG (NORVASC) TAB PO SCH (09:53)
[2018-12-28] MEDS: PIOGLITAZONE 30MG (ACTOS) TAB PO SCH ×2 (09:53→21:24)
[2018-12-28] MEDS: TROLAMINE (ASPERCREME) 10% CR 90 GM TUBE TOP SCH ×2 (09:53→21:26)
[2018-12-28] MEDS: PANTOPRAZOLE 20 MG TABLET (PROTONIX) PO SCH (09:53)
--- NOTE | 2018-12-28 10:27 | Physical Therapy Daily Note ---
PT Daily Note-Current Subjective Patient in recliner pre tx, agrees to PT, has no complaints of pain. Appearance Patient in recliner post tx with nurse call, phone, tray, all needs met. Mental Status Patient Orientation: Person, Place, Situation Transfers Therapy Code Descriptions/Definitions Functional [place] Measure: 0=Not Assessed/NA 4=Minimal Assistance 1=Total Assistance 5=Supervision or Setup 2=Maximal Assistance 6=Modified [place] 3=Moderate Assistance 7=Complete [place] Therapy Quality Codes: 6 Independent with activity with or without an assistive device 5 Patient requires set up or clean up by helper. Patient completes activity by themselves 4 Supervision or touching assist (CGA). [place] provide cues , steadying assist 3 The helper provides less than half the effort to complete the activity 2 The helper provides more than half the effort to complete the activity 1 Dependent. The helper does all the effort to complete an activity 7 Patient refused to complete or attempt activity 9 The patient did not perform the activity before the current illness or injury 88 Not attempted due to Medical conditions or safety concerns Transfers (B, C, W/C) (FIM): 5 Sit to/from Stand: 5 Bed to/from Chair: 5 Patient sometimes needs multiple attempts to stand from low surfaces but she can do it without assist. Weight Bearing Right Lower Extremity: Right Full Weight Bearing Left Lower Extremity: Left Full Weight Bearing Gait Training Gait (FIM): 5 Distance: 150'x2 Gait Level of Assist: 5 Gait Persons Needed: 1 Gait Assistive Device: Walker Robby Slow ambulation, wide DELFINA, tends to keep hemiwalker in front instead of to the side. Exercises sit to stand from progressively lower surfaces 3 sets of 10, LAQ alternating for 5 min NuStep Minutes: 15 NuStep Workload: 4 Treatments transfers, ambulation, functional strengthening Assessment Current Status: Fair Progress improving ambulation and transfers, now SBA PT Short Term Goals Short Term Goals Time Frame: Dec 11, 2018 Gait (FIM): 1 Gait Distance Comment: 10' Gait Level of Assist: 3 Gait Assistive Device: Walker Robby Wheelchair Distance: 150' PT Group Insurance Special Agent Goals Group Insurance Special Agent Goals PT Group Insurance Special Agent Goals Time Frame: Dec 25, 2018 Transfers (B,C,W/C) (FIM): 4 Sit to Lying (QC): 3 Lying-Sitting on Side/Bed(QC): 3 Sit to Stand (QC): 3 Rollin Roll Left to Right (QC): 3 Chair/Jtk-bh-Zhlbm Xfer(QC): 3 Car Transfer (QC): 3 Gait (FIM): 2 Distance: 50' Walk 10 feet (QC): 3 Walk 10ft-Uneven Surface(QC): 3 Walk 50ft with 2 Turns (QC): 3 Walk 150 ft (QC): 3 Gait Level of Assist: 4 Gait Assistive Device: Walker Robby Stairs (FIM): 1 # of Steps: 1 1 Step (curb) (QC): 3 Stairs Level Of Assist: 4 PT Plan Problem List Problem List: Activity Tolerance, Functional Strength, Safety, Balance, Gait, Transfer, Bed Mobility, ROM Treatment/Plan Treatment Plan: Continue Plan of Care Treatment Plan: Bed Mobility, Concurrent Therapy, Education, Functional Activity Angelita, Functional Strength, Group Therapy, Gait, Safety, Therapeutic Exercise, Transfers Treatment Duration: Dec 25, 2018 Frequency: At least 5 of 7 days/Wk (IRF) Estimated Hrs Per Day: 1.5 hours per day Patient and/or Family Agrees t: Yes Safety Risks/Education Patient Education: Gait Training, Transfer Techniques, Correct Positioning, Safety Issues Teaching Recipient: Patient Teaching Methods: Demonstration, Discussion Response to Teaching: Reinforcement Needed Time/GCodes Time In: 0930 Time Out: 1030 Total Billed Treatment Time: 60 Total Billed Treatment 1 visit EX 20' FA 10' GT 30' MEGHAN DYER PT Dec 28, 2018 10:27
--- NOTE | 2018-12-28 11:27 | Occupational Ther Daily Note ---
OT Current Status-Daily Note Subjective Pt alert, sitting in recliner. Pt agrees to therapy. Pt c/o pain in L UE. Mental Status/Objective Patient Orientation: Person, Place, Time, Situation Therapy Code Descriptions/Definitions Functional [place] Measure: 0=Not Assessed/NA 4=Minimal Assistance 1=Total Assistance 5=Supervision or Setup 2=Maximal Assistance 6=Modified [place] 3=Moderate Assistance 7=Complete [place] ADL-Treatment Pt maneuvered w/c to bathroom and completed toilet transfer with supervision using grabbars. Completed toileting with supervision and AE, sore noted in crease of thigh, ointment applied. Pt then maneuvered w/c to sink and completed own grooming. Therapy Code Descriptions/Definitions Functional [place] Measure: 0=Not Assessed/NA 4=Minimal Assistance 1=Total Assistance 5=Supervision or Setup 2=Maximal Assistance 6=Modified [place] 3=Moderate Assistance 7=Complete [place] Therapy Quality Codes: 6 Independent with activity with or without an assistive device 5 Patient requires set up or clean up by helper. Patient completes activity by themselves 4 Supervision or touching assist (CGA). [place] provide cues , steadying assist 3 The helper provides less than half the effort to complete the activity 2 The helper provides more than half the effort to complete the activity 1 Dependent. The helper does all the effort to complete an activity 7 Patient refused to complete or attempt activity 9 The patient did not perform the activity before the current illness or injury 88 Not attempted due to Medical conditions or safety concerns Grooming (FIM): 6 Oral Hygiene (QC): 6 Toileting (FIM): 5 Toileting Hygiene (QC): 4 Transfers (B, C, W/C) (FIM): 5 Toilet/Commode Transfer (FIM): 5 Toilet Transfer (QC): 4 Other Treatment Pt transported to therapy gym via w/c. Completed gross grasp and UE AROM task, pulling pegs from board and placing in designated area. To decrease pain and increase mobility stretch and massage to L UE. After therapy, pt sitting in recliner in room with call light/phone in reach. All needs met in room. OT Short Term Goals Short Term Goals Time Frame: Dec 11, 2018 Upper Body Dressing(FIM): 3 Lower Body Dressing(FIM): 3 Toileting(FIM): 3 Toilet/Commode Transfer(FIM): 3 Additional Short Term Goals: 1-Demonstrate ADL Tasks, 2-Verbalize Understanding , 3-ImproveStrength/Angelita 1=Demonstrate adherence to instructed precautions during ADL tasks. 2=Patient will verbalize/demonstrate understanding of assistive devices/ modifications for ADL. 3=Patient will improve strength/tolerance for activity to enable patient to perform ADL's. OT Grain Unloader Machine Goals Grain Unloader Machine Goals Time Frame: Dec 28, 2018 Eating (FIM): 6 Eating (QC): 6 Groomin Oral Hygiene (QC): 6 Bathing(FIM): 4 Shower/Bathe Self (QC): 4 Upper Body Dressing(FIM): 5 Upper Body Dressing (QC): 5 Lower Body Dressing(FIM): 5 Lower Body Dressing (QC): 5 On/Off Footwear (QC): 5 Toileting(FIM): 5 Toileting Hygiene (QC): 5 Toilet/Commode Transfer(FIM): 5 Toilet/Commode Transfer (QC): 5 Shower Transfer(FIM): 5 Additional Goals: 1-Demonstrate ADL Tasks, 2-Verbalize Understanding, 3- ImproveStrength/Angelita 1=Demonstrate adherence to instructed precautions during ADL tasks. 2=Patient will verbalize/demonstrate understanding of assistive devices/ modifications for ADL. 3=Patient will improve strength/tolerance for activity to enable patient to perform ADL's. OT Education/Plan Discharge Recommendations Plan/Recommendations: Continue POC Treatment Plan/Plan of Care Patient would benefit from OT for education, treatment and training to promote independence in ADL's, mobility, safety and/or upper extremity function for ADL' s. Plan of Care: ADL Retraining, Functional Mobility, Group Exercise/Act as Ind, UE Funct Exercise/Act, UE Neuromus Re-Ed/Coord Treatment Duration: Dec 28, 2018 Frequency: 5 times per week Estimated Hrs Per Day: 1.5 hours per day Agreement: Yes Rehab Potential: Good Time/GCodes Start Time: 08:00 Stop Time: 09:00 Total Time Billed (hr/min): 60 Billed Treatment Time 1 visit-ADL 3 (40 min) NM 1 (20 min) MADHAVI MENA Dec 28, 2018 11:27
--- NOTE | 2018-12-28 13:19 | Speech Therapy Daily Note ---
Speech Daily Progress Note Subjective Date Seen by Provider: Dec 28, 2018 Time Seen by Provider: 00:30 The patient was resting in her recliner when I arrived. Objective Patient consumed oral intake with no s/s of aspiration and utilization of compensatory strategies at 90% without verbal cues. Treatment Plan Continue Plan of Care Communication Comprehension: 7 Expression: 7 Social Cognition Social Interaction: 7 Problem Solvin Memory: 7 Speech Short Term Goals Short Term Goals Short Term Goals 1) Patient will utilize compensatory strategies as trained for safe oral intake of the least restrictive diet with 90% or greater. 2) Patient will demonstrate safe oral intake of the least restrictive diet level with 90% or greater. Speech Morning Show Host Goals Longterm Goals Patient will maintain adequate nutrition/hydration via safe effective swallow function. Speech-Plan Patient/Family Goals Patient/Family Goals: The patient plans to return home independently with family support. Treatment Plan Speech Therapy Treatment Plan: Continue Plan of Care Continue ST rehab Treatment Duration: Dec 28, 2018 Frequency: 5 times per week Estimated Hrs Per Day: .5 hour per day Rehab Potential: Good Barriers to Learning: New CVA Pt/Family Agrees to Plan: Yes Safety Risks/Education Teaching Recipient: Patient Teaching Methods: Discussion Response to Teaching: Verbalize Understanding Education Topics Provided: Continued safety of oral intake. Time Speech Therapy Time In: 11:30 Speech Therapy Time Out: 12:00 Total Billed Time: 30 Billed Treatment Time 1BRENDA BETH[address] ST Dec 28, 2018 13:19
--- NOTE | 2018-12-28 13:52 | NUR ---
PT EATING WELL, 100% MEALS, AND WEIGHT STABLE. GLUCOSE SLIGHTLY ELEVATED. INTAKE MEETING NEEDS AT THIS TIME. CONT SAME.
--- NOTE | 2018-12-28 15:45 | Therapy Group Daily Note ---
Therapy Daily Group Note Patient Education Topic Other List Below (ARU Expectations & Memory) Exercises LE Seated Exercise, UE Exercise Session Ratio (pt:therapist): 4:1 Goal of Session: Education on ARU Expectations, Memory Strategies, UE/LE Strengthing Goal Met for this Session: Yes Pt Benefit of Group: Contributions to Others, F/U Use of Strategies @Home, Increased Functional Strength, Improved Cognition, Recognition of Peers, Socialization Other/Notes Pt ambulated to OT/PT group in [facility] area. Group consisted of introductions (name, place, best restaurant), socialization, UE/LE seated exercises and educational topics (memory strategies/ARU description). Pt introduced self appropriately and actively listened to peers. Pt able to complete UE & LE with R UE/LE, L UELE unable due to medical diagnosis without assistance. Pt was able to verbalize memory strategies and acknowledge understanding of educational topics. After therapy, pt sitting in recliner with call light/phone in reach. All needs met in room. Start Time: 13:00 Stop Time: 14:30 Total Billed Treatment Time: 90 Total Billed Treatment 1, CORI DONISMONY NOLASCO FOREPART ROUNDER Dec 28, 2018 15:45
--- NOTE | 2018-12-28 15:50 | NUR ---
LOCAL AREA NETWORK ADMINISTRATOR assist patient in ordering a hemiwalker, bedrail, tub shower transfer bench and toilet riser from [employer]. Items are to be delivered by Monday, 12/31. LOCAL AREA NETWORK ADMINISTRATOR has worked diligently to locate resources in the area to build in installed ramp at [facility]. After exhausting all [place] contacts, LOCAL AREA NETWORK ADMINISTRATOR was able to reach out to speak with a builder at [facility]. He intends to assess patient's home situation and will reach out to LOCAL AREA NETWORK ADMINISTRATOR this evening in regards to ability to build an installed ramp by Monday. Patient is able to financially contribute as needed. LOCAL AREA NETWORK ADMINISTRATOR will arrange for wheelchair and cushion order from [employer] to be delivered prior to discharge. LOCAL AREA NETWORK ADMINISTRATOR also rechecked area home health agencies to locate company with bath aide services.
[2018-12-28 17:54] VITALS: BP 123/72
[2018-12-28] MEDS: ACETAMINOPHEN 500 MG TAB (TYLENOL) PO PRN (21:24)
[2018-12-28] MEDS: ATORVASTATIN 20 MG (LIPITOR) TABLET PO SCH (21:24)
[2018-12-29] MEDS: HYDROcodone/APAP 5 MG/325 MG (LORTAB) TAB PO PRN (05:24)
[2018-12-29] MEDS: LEVOTHYROXINE 50 MCG (LEVOTHROID) TAB PO SCH (05:24)
[2018-12-29] MEDS: inSUlin ASPART (NovoLOG) 1 UNIT/0.01 ML (CHARGE PER UNIT) SC SCH ×4 (05:25→22:06)
[2018-12-29 05:59] VITALS: BP 142/66
[2018-12-29] MEDS: TRIAMTERENE/HCTZ 75-50 (MAXZIDE,DYAZIDE) TABLET PO SCH (08:27)
[2018-12-29] MEDS: amLODIPine 10 MG (NORVASC) TAB PO SCH (08:27)
[2018-12-29] MEDS: ASPIRIN E.C. 81 MG (ECOTRIN) TAB PO SCH (08:27)
[2018-12-29] MEDS: ENOXAPARIN 40 MG/0.4 ML (LOVENOX) SYR SC SCH ×2 (08:27→21:18)
[2018-12-29] MEDS: PANTOPRAZOLE 20 MG TABLET (PROTONIX) PO SCH (08:27)
[2018-12-29] MEDS: DOCUSATE SODIUM 100 MG (COLACE) CAP PO SCH ×2 (08:27→21:27)
[2018-12-29] MEDS: CELECOXIB 100 MG (CeleBREX) CAP PO SCH ×2 (08:28→21:17)
[2018-12-29] MEDS: TROLAMINE (ASPERCREME) 10% CR 90 GM TUBE TOP SCH ×2 (08:28→21:27)
[2018-12-29] MEDS: PIOGLITAZONE 30MG (ACTOS) TAB PO SCH ×2 (08:28→21:17)
--- NOTE | 2018-12-29 08:41 | Physical Therapy Daily Note ---
PT Daily Note-Current Subjective Patient is up in recliner and agrees to PT. PT assist to don shoes. Mental Status Patient Orientation: Normal For Age Transfers Therapy Code Descriptions/Definitions Functional [place] Measure: 0=Not Assessed/NA 4=Minimal Assistance 1=Total Assistance 5=Supervision or Setup 2=Maximal Assistance 6=Modified [place] 3=Moderate Assistance 7=Complete [place] Therapy Quality Codes: 6 Independent with activity with or without an assistive device 5 Patient requires set up or clean up by helper. Patient completes activity by themselves 4 Supervision or touching assist (CGA). [place] provide cues , steadying assist 3 The helper provides less than half the effort to complete the activity 2 The helper provides more than half the effort to complete the activity 1 Dependent. The helper does all the effort to complete an activity 7 Patient refused to complete or attempt activity 9 The patient did not perform the activity before the current illness or injury 88 Not attempted due to Medical conditions or safety concerns Transfers (B, C, W/C) (FIM): 5 Scootin Sit to/from Stand: 5 Sit to Stand (QC): 5 Weight Bearing Right Lower Extremity: Right Full Weight Bearing Left Lower Extremity: Left Full Weight Bearing Gait Training Does the Patient Walk?: Yes Gait (FIM): 5 Distance (FIM): 3=150 ft Distance: 150' x 3 Walk 10 feet (QC): 5 Walk 50 ft with 2 Turns(QC): 5 Walk 150 ft (QC): 5 Gait Level of Assist: 5 Gait Assistive Device: Walker Robby good balance, steady step to sequence Exercises Seated Therapy Exercises: Ankle pumps, Long arc quads, Hip flexion Seated Reps: 15 Assessment Patient tolerated treatment well and returned to room to toilet. Nursing notified. Patient progressing with treatment plan. PT Short Term Goals Short Term Goals Time Frame: Dec 11, 2018 Gait (FIM): 1 Gait Distance Comment: 10' Gait Level of Assist: 3 Gait Assistive Device: Walker Robby Wheelchair Distance: 150' PT Halfway Goals Roll Trucker Goals PT Roll Trucker Goals Time Frame: Dec 25, 2018 Transfers (B,C,W/C) (FIM): 4 Sit to Lying (QC): 3 Lying-Sitting on Side/Bed(QC): 3 Sit to Stand (QC): 3 Rollin Roll Left to Right (QC): 3 Chair/Xmn-yk-Gguiw Xfer(QC): 3 Car Transfer (QC): 3 Gait (FIM): 2 Distance: 50' Walk 10 feet (QC): 3 Walk 10ft-Uneven Surface(QC): 3 Walk 50ft with 2 Turns (QC): 3 Walk 150 ft (QC): 3 Gait Level of Assist: 4 Gait Assistive Device: Walker Robby Stairs (FIM): 1 # of Steps: 1 1 Step (curb) (QC): 3 Stairs Level Of Assist: 4 PT Plan Treatment/Plan Treatment Plan: Continue Plan of Care Treatment Plan: Bed Mobility, Concurrent Therapy, Education, Functional Activity Angelita, Functional Strength, Group Therapy, Gait, Safety, Therapeutic Exercise, Transfers Treatment Duration: Dec 25, 2018 Frequency: At least 5 of 7 days/Wk (IRF) Estimated Hrs Per Day: 1.5 hours per day Patient and/or Family Agrees t: Yes Time/GCodes Time In: 731 Time Out: 754 Total Billed Treatment Time: 23 Total Billed Treatment 1 visit FA x 2 23 min AGNES MILAN PT Dec 29, 2018 08:41
--- NOTE | 2018-12-29 12:45 | PM&R Progress Note ---
Subjective HPI/CC On Admission Date Seen by Provider: Dec 29, 2018 Time Seen by Provider: 11:15 Chief complaint: Stroke with left sided weakness and dysphasia. HPI: This is a 68yoWF who moved to [place] in 2011 but remained a patient of TERESA Monroe doctor who presented with left sided weakness diagnosed with a stroke (out of tPA window of candidacy) and has been actively pursuing rehab since that time. At this current time she is still have dysphasia and difficulty speaking but her thought process is intact and she will need intensive therapy for the left sided weakness. Curry catheter has been maintained and that will be discontinued. Bowels are moving she reports after meds were given. I reviewed all of her home medication that included Celebrex and will maintain on Aspirin and low dose Statin therapy following a stroke per protocol. Pt is agreeable for inpatient rehab and intensive therapy to regain function following a devastating stroke with left sided weakness. She lives at home alone. 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 Pt does have chronic pain, fibromyalgia, and osteoarthritis that she struggles with on an ongoing basis. Subjective/Events-last exam Thinks she is doing very well Ramp is still being pursued Denies new pain issues Progressing well Overall participating in therapies Somatic complaints still occur Slept well Objective Exam Vital Signs Vital Signs Date Time Temp Pulse Resp B/P (MAP) Pulse Ox O2 Delivery O2 Flow Rate FiO2 12/29/18 09:00 Room Air 12/29/18 05:59 96.9 67 20 142/66 (91) 93 Capillary Refill : General Appearance: No Apparent Distress, WD/WN, Chronically ill, Obese HEENT: PERRL/EOMI, Normal ENT Inspection, Pharynx Normal, Moist Mucous Membranes Neck: Full Range of Motion, Normal Inspection, Non Tender, Supple Respiratory: Chest Non Tender, Lungs Clear, Normal Breath Sounds, No Accessory Muscle Use, No Respiratory Distress Cardiovascular: Regular Rate, Rhythm, No Edema, No Gallop, No JVD, No Murmur Gastrointestinal: Normal Bowel Sounds, No Organomegaly, No Pulsatile Mass, Non Tender, Soft Back: Normal Inspection, No CVA Tenderness, No Vertebral Tenderness Extremity: Normal Capillary Refill, Normal Inspection, Normal Range of Motion ( except left upper ad lower extremity weakness), Non Tender, No Calf Tenderness, No Pedal Edema Neurologic/Psychiatric: Alert, Oriented x3, Normal Mood/Affect, Facial Droop ( left), Motor Weakness (left sided weakness, left facial droop, thickened speech but today, 12/10/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 Assessment/Plan Assessment and Plan Assess & Plan/Chief Complaint Assessment: s/p right CCNA stroke with left sided weakness HTN HTG HLP Hypothyroidism STEPH on CPAP Hypokalemia chronic and allergic to supplement DM OOC DVT PPx with Lovenox Plan: Intensive PT/OT/Speech therapies Monitor bowel function Fall risk management Actos tolerated Continue statin and therapies DC home soon once barriers to DC are resolved: ramp for wheelchair, rails in shower, replaced CPAP CPAP use (1) Acute right CCNA stroke (2) DVT prophylaxis (3) Hyperglyceridemia (4) Hypokalemia (5) Weakness of left side of body (6) Difficulty speaking (7) Dysphagia (8) STEPH on CPAP (9) Non-insulin dependent type 2 diabetes mellitus (10) Essential (primary) hypertension (11) Obesity (12) Hypothyroidism Clinical Quality Measures DVT/VTE Risk/Contraindication: Risk Factor Score Per Nursin RFS Level Per Nursing on Admit: 4+=Very High LOREN MILLER DO Dec 29, 2018 12:45
[2018-12-29 16:02] VITALS: BP 156/71
[2018-12-29] MEDS: ACETAMINOPHEN 500 MG TAB (TYLENOL) PO PRN ×2 (16:30→22:07)
[2018-12-29] MEDS: ATORVASTATIN 20 MG (LIPITOR) TABLET PO SCH (21:17)
[2018-12-30] MEDS: LEVOTHYROXINE 50 MCG (LEVOTHROID) TAB PO SCH (06:13)
[2018-12-30] MEDS: HYDROcodone/APAP 5 MG/325 MG (LORTAB) TAB PO PRN (06:13)
[2018-12-30 06:30] VITALS: BP 124/69
[2018-12-30] MEDS: inSUlin ASPART (NovoLOG) 1 UNIT/0.01 ML (CHARGE PER UNIT) SC SCH ×4 (06:30→21:14)
[2018-12-30] MEDS: PIOGLITAZONE 30MG (ACTOS) TAB PO SCH ×2 (08:45→21:14)
[2018-12-30] MEDS: CELECOXIB 100 MG (CeleBREX) CAP PO SCH ×2 (08:45→21:14)
[2018-12-30] MEDS: PANTOPRAZOLE 20 MG TABLET (PROTONIX) PO SCH (08:45)
[2018-12-30] MEDS: amLODIPine 10 MG (NORVASC) TAB PO SCH (08:45)
[2018-12-30] MEDS: DOCUSATE SODIUM 100 MG (COLACE) CAP PO SCH ×2 (08:46→19:28)
[2018-12-30] MEDS: TRIAMTERENE/HCTZ 75-50 (MAXZIDE,DYAZIDE) TABLET PO SCH (08:46)
[2018-12-30] MEDS: ASPIRIN E.C. 81 MG (ECOTRIN) TAB PO SCH (08:47)
[2018-12-30] MEDS: TROLAMINE (ASPERCREME) 10% CR 90 GM TUBE TOP SCH ×2 (08:47→21:15)
[2018-12-30] MEDS: ENOXAPARIN 40 MG/0.4 ML (LOVENOX) SYR SC SCH ×2 (08:47→21:14)
--- NOTE | 2018-12-30 13:24 | PM&R Progress Note ---
Subjective HPI/CC On Admission Date Seen by Provider: Dec 30, 2018 Time Seen by Provider: 11:15 Chief complaint: Stroke with left sided weakness and dysphasia. HPI: This is a 68yoWF who moved to [place] in 2011 but remained a patient of TERESA Monroe doctor who presented with left sided weakness diagnosed with a stroke (out of tPA window of candidacy) and has been actively pursuing rehab since that time. At this current time she is still have dysphasia and difficulty speaking but her thought process is intact and she will need intensive therapy for the left sided weakness. Curry catheter has been maintained and that will be discontinued. Bowels are moving she reports after meds were given. I reviewed all of her home medication that included Celebrex and will maintain on Aspirin and low dose Statin therapy following a stroke per protocol. Pt is agreeable for inpatient rehab and intensive therapy to regain function following a devastating stroke with left sided weakness. She lives at home alone. 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 Pt does have chronic pain, fibromyalgia, and osteoarthritis that she struggles with on an ongoing basis. Subjective/Events-last exam Thinks she is doing very well Ramp is still being pursued and cannot go home until that is built Denies new pain issues except right wrist and will obtain xray Progressing well Overall participating in therapies Somatic complaints still occur Slept well Review of Systems Musculoskeletal: arm pain Objective Exam Vital Signs Vital Signs Date Time Temp Pulse Resp B/P (MAP) Pulse Ox O2 Delivery O2 Flow Rate FiO2 12/30/18 09:59 Room Air 12/30/18 06:30 96.6 67 18 124/69 (87) 97 Capillary Refill : General Appearance: No Apparent Distress, WD/WN, Chronically ill, Obese HEENT: PERRL/EOMI, Normal ENT Inspection, Pharynx Normal, Moist Mucous Membranes Neck: Full Range of Motion, Normal Inspection, Non Tender, Supple Respiratory: Chest Non Tender, Lungs Clear, Normal Breath Sounds, No Accessory Muscle Use, No Respiratory Distress Cardiovascular: Regular Rate, Rhythm, No Edema, No Gallop, No JVD, No Murmur Gastrointestinal: Normal Bowel Sounds, No Organomegaly, No Pulsatile Mass, Non Tender, Soft Back: Normal Inspection, No CVA Tenderness, No Vertebral Tenderness Extremity: Normal Capillary Refill, Normal Inspection, Normal Range of Motion ( except left upper ad lower extremity weakness), Non Tender, No Calf Tenderness, No Pedal Edema Neurologic/Psychiatric: Alert, Oriented x3, Normal Mood/Affect, Facial Droop ( left), Motor Weakness (left sided weakness, left facial droop, thickened speech but today, 12/10/18 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
[2018-12-30] MEDS: ACETAMINOPHEN 500 MG TAB (TYLENOL) PO PRN ×2 (13:50→21:19)
--- NOTE | 2018-12-30 16:09 | Diagnostic Imaging Report ---
EXAMINATION: Left wrist radiographs, 2 views. COMPARISON: None. HISTORY: 68-year-old female, wrist pain and swelling. FINDINGS: There are limitations of the exam relating to the two-view technique. There is very mild degenerative change of the triscaphe articulation and first carpometacarpal joint. There is no identified acute fracture. There is no radiopaque foreign body. There is no particularly prominent focal soft tissue swelling. IMPRESSION: 1. No identified acute bony abnormality of the wrist. 2. Very mild triscaphe and first carpometacarpal degenerative changes. Dictated by: Dictated on workstation # [id number]
[2018-12-30 17:16] VITALS: BP 125/70
[2018-12-30] MEDS: ATORVASTATIN 20 MG (LIPITOR) TABLET PO SCH (21:14)
[2018-12-31] MEDS: HYDROcodone/APAP 5 MG/325 MG (LORTAB) TAB PO PRN (05:13)
[2018-12-31] MEDS: LEVOTHYROXINE 50 MCG (LEVOTHROID) TAB PO SCH (05:13)
[2018-12-31] MEDS: inSUlin ASPART (NovoLOG) 1 UNIT/0.01 ML (CHARGE PER UNIT) SC SCH ×4 (05:19→21:24)
[2018-12-31 05:28] VITALS: BP 148/70
--- NOTE | 2018-12-31 08:25 | PM&R Progress Note ---
Subjective HPI/CC On Admission Date Seen by Provider: Dec 31, 2018 Time Seen by Provider: 08:15 Chief complaint: Stroke with left sided weakness and dysphasia. HPI: This is a 68yoWF who moved to [place] in 2011 but remained a patient of TERESA Monroe doctor who presented with left sided weakness diagnosed with a stroke (out of tPA window of candidacy) and has been actively pursuing rehab since that time. At this current time she is still have dysphasia and difficulty speaking but her thought process is intact and she will need intensive therapy for the left sided weakness. Curry catheter has been maintained and that will be discontinued. Bowels are moving she reports after meds were given. I reviewed all of her home medication that included Celebrex and will maintain on Aspirin and low dose Statin therapy following a stroke per protocol. Pt is agreeable for inpatient rehab and intensive therapy to regain function following a devastating stroke with left sided weakness. She lives at home alone. 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 Pt does have chronic pain, fibromyalgia, and osteoarthritis that she struggles with on an ongoing basis. Subjective/Events-last exam Thinks she is doing very well Ramp was built yesterday and will go on a daypass today after therapies Denies new pain issues except left wrist pain which xray was negative for fracture Progressing well Overall participating in therapies Somatic complaints still occur every day Slept well Review of Systems General: Fatigue Musculoskeletal: hand pain Neurological: Weakness, Numbness, Incoordination Objective Exam Vital Signs Vital Signs Date Time Temp Pulse Resp B/P (MAP) Pulse Ox O2 Delivery O2 Flow Rate FiO2 12/31/18 05:28 97.0 65 20 148/70 (96) 98 Room Air Capillary Refill : General Appearance: No Apparent Distress, WD/WN, Chronically ill, Obese HEENT: PERRL/EOMI, Normal ENT Inspection, Pharynx Normal, Moist Mucous Membranes Neck: Full Range of Motion, Normal Inspection, Non Tender, Supple Respiratory: Chest Non Tender, Lungs Clear, Normal Breath Sounds, No Accessory Muscle Use, No Respiratory Distress Cardiovascular: Regular Rate, Rhythm, No Edema, No Gallop, No JVD, No Murmur Gastrointestinal: Normal Bowel Sounds, No Organomegaly, No Pulsatile Mass, Non Tender, Soft Back: Normal Inspection, No CVA Tenderness, No Vertebral Tenderness Extremity: Normal Capillary Refill, Normal Inspection, Normal Range of Motion ( except left upper ad lower extremity weakness), Non Tender, No Calf Tenderness, No Pedal Edema Neurologic/Psychiatric: Alert, Oriented x3, Normal Mood/Affect, Facial Droop ( left), Motor Weakness (left sided weakness, left facial droop, thickened speech but today, 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 HTN HTG HLP Hypothyroidism STEPH on CPAP Hypokalemia chronic and allergic to supplement DM OOC DVT PPx with Lovenox Right wrist pain negative fracture on xray Plan: Intensive PT/OT/Speech therapies Monitor bowel function Fall risk management Actos tolerated Continue statin and therapies DC home soon once barriers to DC are resolved: ramp for wheelchair, rails in shower, replaced CPAP CPAP use Reviewed xray right wrist which was negative (1) Acute right JAVA GROOVY DEVELOPER stroke (2) DVT prophylaxis (3) Hyperglyceridemia (4) Hypokalemia (5) Weakness of left side of body (6) Difficulty speaking (7) Dysphagia (8) STEPH on CPAP (9) Non-insulin dependent type 2 diabetes mellitus (10) Essential (primary) hypertension (11) Obesity (12) Hypothyroidism Clinical Quality Measures DVT/VTE Risk/Contraindication: Risk Factor Score Per Nursin RFS Level Per Nursing on Admit: 4+=Very High LOREN MILLER DO Dec 31, 2018 08:24
[2018-12-31] MEDS: PIOGLITAZONE 30MG (ACTOS) TAB PO SCH ×2 (09:10→21:16)
[2018-12-31] MEDS: PANTOPRAZOLE 20 MG TABLET (PROTONIX) PO SCH (09:10)
[2018-12-31] MEDS: TRIAMTERENE/HCTZ 75-50 (MAXZIDE,DYAZIDE) TABLET PO SCH (09:10)
[2018-12-31] MEDS: ENOXAPARIN 40 MG/0.4 ML (LOVENOX) SYR SC SCH ×2 (09:10→21:16)
[2018-12-31] MEDS: amLODIPine 10 MG (NORVASC) TAB PO SCH (09:10)
[2018-12-31] MEDS: CELECOXIB 100 MG (CeleBREX) CAP PO SCH ×2 (09:10→21:16)
[2018-12-31] MEDS: ASPIRIN E.C. 81 MG (ECOTRIN) TAB PO SCH (09:10)
[2018-12-31] MEDS: DOCUSATE SODIUM 100 MG (COLACE) CAP PO SCH ×2 (09:10→21:17)
[2018-12-31] MEDS: TROLAMINE (ASPERCREME) 10% CR 90 GM TUBE TOP SCH ×2 (09:11→21:35)
--- NOTE | 2018-12-31 11:49 | Occupational Ther Daily Note ---
OT Current Status-Daily Note Subjective Pt. reports that her knees are sore, but does not give a pain number. Declines meds or cream at this time. Appearance Pt. up in chair. Declines showering because she would like to work on her UE. Mental Status/Objective Patient Orientation: Person, Place, Time, Situation Therapy Code Descriptions/Definitions Functional Masterson Measure: 0=Not Assessed/NA 4=Minimal Assistance 1=Total Assistance 5=Supervision or Setup 2=Maximal Assistance 6=Modified Masterson 3=Moderate Assistance 7=Complete Masterson ADL-Treatment Therapy Code Descriptions/Definitions Functional Masterson Measure: 0=Not Assessed/NA 4=Minimal Assistance 1=Total Assistance 5=Supervision or Setup 2=Maximal Assistance 6=Modified Masterson 3=Moderate Assistance 7=Complete Masterson Therapy Quality Codes: 6 Independent with activity with or without an assistive device 5 Patient requires set up or clean up by helper. Patient completes activity by themselves 4 Supervision or touching assist (CGA). [place] provide cues , steadying assist 3 The helper provides less than half the effort to complete the activity 2 The helper provides more than half the effort to complete the activity 1 Dependent. The helper does all the effort to complete an activity 7 Patient refused to complete or attempt activity 9 The patient did not perform the activity before the current illness or injury 88 Not attempted due to Medical conditions or safety concerns Transfers (B, C, W/C) (FIM): 5 (SBA to amulate with vanesa cane to and from therapy gym.) Toilet/Commode Transfer (FIM): 5 Toilet Transfer (QC): 4 Other Treatment Pt. already dressed. Agrees to ambulate to therapy gym. OT facilitated active movement of triceps and bicep of left UE. Pt participated in e-stim to left UE to wrist extensors and finger flexors. Tolerated 8 minutes each muscle group, 6 niraj-amps to finger flexors and 8 niraj-amps to wrist extensors. Tolerated this well. Worked on finger strength and fine motor coordination tasks. Pt. able to demonstrate good active movement of fingers, but has limited strength. Pt. able to slightly reach with left shoulder to take obrien bags. Able to drop them into bucket with good finger release. Provided gentle stretch to left shoulder in all planes. Ambulated back to room. Pt. transferred to toilet. Call light within place to notify nursing. Education OT Patient Education: Correct positioning, Exercise program, Home exercise program, Modified ADL techniques, Progress toward Goal/Update tx plan, Purpose of tx/functional activities, Reviewed precautions, Rehab process, Transfer techniques Teaching Recipient: Patient Teaching Methods: Demonstration, Discussion Response to Teaching: Verbalize Understanding, Return Demonstration OT Short Term Goals Short Term Goals Time Frame: Dec 11, 2018 Upper Body Dressing(FIM): 3 Lower Body Dressing(FIM): 3 Toileting(FIM): 3 Toilet/Commode Transfer(FIM): 3 Additional Short Term Goals: 1-Demonstrate ADL Tasks, 2-Verbalize Understanding , 3-ImproveStrength/Angelita 1=Demonstrate adherence to instructed precautions during ADL tasks. 2=Patient will verbalize/demonstrate understanding of assistive devices/ modifications for ADL. 3=Patient will improve strength/tolerance for activity to enable patient to perform ADL's. OT Retirement Goals Tafe Registrar Goals Time Frame: Dec 28, 2018 Eating (FIM): 6 Eating (QC): 6 Groomin Oral Hygiene (QC): 6 Bathing(FIM): 4 Shower/Bathe Self (QC): 4 Upper Body Dressing(FIM): 5 Upper Body Dressing (QC): 5 Lower Body Dressing(FIM): 5 Lower Body Dressing (QC): 5 On/Off Footwear (QC): 5 Toileting(FIM): 5 Toileting Hygiene (QC): 5 Toilet/Commode Transfer(FIM): 5 Toilet/Commode Transfer (QC): 5 Shower Transfer(FIM): 5 Additional Goals: 1-Demonstrate ADL Tasks, 2-Verbalize Understanding, 3- ImproveStrength/Angelita 1=Demonstrate adherence to instructed precautions during ADL tasks. 2=Patient will verbalize/demonstrate understanding of assistive devices/ modifications for ADL. 3=Patient will improve strength/tolerance for activity to enable patient to perform ADL's. OT Education/Plan Problem List/Assessment Assessment: Decreased Activ Tolerance, Decreased UE Strength, Impaired Coordination, Impaired I ADL's, Impaired Self-Care Skills, Restricted Funct UE ROM Discharge Recommendations Plan/Recommendations: Continue POC Therapy D/C Recommendations: Home w/ Family Support, Occupational Therapy Home Care Equpiment Recommendations-D/C: Hip Kit Treatment Plan/Plan of Care Treatment,Training & Education: Yes Patient would benefit from OT for education, treatment and training to promote independence in ADL's, mobility, safety and/or upper extremity function for ADL' s. Plan of Care: ADL Retraining, Functional Mobility, Group Exercise/Act as Ind, UE Funct Exercise/Act, UE Neuromus Re-Ed/Coord Treatment Duration: Dec 28, 2018 Frequency: At least 5 of 7 days/Wk (IRF) Estimated Hrs Per Day: 1.5 hours per day Agreement: Yes Rehab Potential: Good Time/GCodes Start Time: 08:15 Stop Time: 09:15 Total Time Billed (hr/min): 60 Billed Treatment Time 1, Ex x 30minutes, NM x 30minutes CHELI LOPEZ OT Dec 31, 2018 11:49
--- NOTE | 2018-12-31 12:16 | Physical Therapy Daily Note ---
PT Daily Note-Current Subjective Agrees to PT. Reports she is going on a home visit this afternoon. She want to practice stepping up/down a small step as she will need to do this to step onto her ramp Pain Numeric Pain Scale: 0-No Pain Location: No Pain Reported Mental Status Patient Orientation: Person, Place, Time, Situation Transfers Therapy Code Descriptions/Definitions Functional Walker Measure: 0=Not Assessed/NA 4=Minimal Assistance 1=Total Assistance 5=Supervision or Setup 2=Maximal Assistance 6=Modified Walker 3=Moderate Assistance 7=Complete Walker Therapy Quality Codes: 6 Independent with activity with or without an assistive device 5 Patient requires set up or clean up by helper. Patient completes activity by themselves 4 Supervision or touching assist (CGA). [place] provide cues , steadying assist 3 The helper provides less than half the effort to complete the activity 2 The helper provides more than half the effort to complete the activity 1 Dependent. The helper does all the effort to complete an activity 7 Patient refused to complete or attempt activity 9 The patient did not perform the activity before the current illness or injury 88 Not attempted due to Medical conditions or safety concerns Weight Bearing Right Lower Extremity: Right Full Weight Bearing Left Lower Extremity: Left Full Weight Bearing Gait Training Does the Patient Walk?: Yes Gait (FIM): 5 Distance (FIM): 3=150 ft Distance: 200 ft x 2; 50 ft x 2 Walk 10 feet (QC): 5 Walk 50 ft with 2 Turns(QC): 5 Walk 150 ft (QC): 5 Walking 10ft/uneven surface-QC: 4 (cGA for safety) Gait Assistive Device: Walker Robby Pt walked across a 10 ft uneven surface x 4 with hemiwalker with CGA; she had to step up a 1-2" lip to step onto it and was able to do so without assist. Balance Picking up an Object (QC): 88 Exercises Seated Therapy Exercises: Long arc quads, Hip flexion Seated Reps: 15 Standing: Sit to Stand (2 sets of 5) NuStep Minutes: 20 NuStep Workload: 4 Treatments Functional mobilty training in prep for home visit and discharge this week, LE functional strengthening to promote improved mod indep mobilty Assessment Current Status: Good Progress No noted LOB episodes, improved functional mobility and did well stepping up the lip for the uneven surface as well as prep for stepping up on her ramp PT Short Term Goals Short Term Goals Time Frame: Dec 11, 2018 Gait (FIM): 1 (met) Gait Distance Comment: 10' Gait Level of Assist: 3 Gait Assistive Device: Walker Robby Wheelchair Distance: 150' PT Group Home Goals Group Home Goals PT Billet Shearer Goals Time Frame: Dec 25, 2018 Transfers (B,C,W/C) (FIM): 4 Sit to Lying (QC): 3 Lying-Sitting on Side/Bed(QC): 3 Sit to Stand (QC): 3 Rollin Roll Left to Right (QC): 3 Chair/[id number] Xfer(QC): 3 Car Transfer (QC): 3 Gait (FIM): 2 Distance: 50' Walk 10 feet (QC): 3 Walk 10ft-Uneven Surface(QC): 3 Walk 50ft with 2 Turns (QC): 3 Walk 150 ft (QC): 3 Gait Level of Assist: 4 Gait Assistive Device: Walker Robby Stairs (FIM): 1 # of Steps: 1 1 Step (curb) (QC): 3 Stairs Level Of Assist: 4 PT Plan Problem List Problem List: Activity Tolerance, Functional Strength, Safety, Balance, Gait, Transfer, Bed Mobility Treatment/Plan Treatment Plan: Continue Plan of Care Treatment Plan: Bed Mobility, Concurrent Therapy, Education, Functional Activity Angelita, Functional Strength, Group Therapy, Gait, Safety, Therapeutic Exercise, Transfers Treatment Duration: Dec 25, 2018 Frequency: At least 5 of 7 days/Wk (IRF) Estimated Hrs Per Day: 1.5 hours per day Patient and/or Family Agrees t: Yes Safety Risks/Education Patient Education: Transfer Techniques, Safety Issues Teaching Recipient: Patient Teaching Methods: Discussion Response to Teaching: Return Demonstration Discharge Recommendations Therapy D/C Recommendations: Physical Therapy Home Care Time/GCodes Time In: 945 Time Out: 1045 Total Billed Treatment Time: 60 Total Billed Treatment visit FA 30 EX 30 MADHAVI HOU PT Dec 31, 2018 12:16
--- NOTE | 2018-12-31 12:19 | Physical Therapy Rehab Re-Cert ---
PT Re-Certification Form Physical Therapy Treatment Plan: Continue Plan of Care (starting 12/28/18) Bed Mobility, Concurrent Therapy, Education, Functional Activity Angelita, Functional Strength, Group Therapy, Gait, Safety, Therapeutic Exercise, Transfers Pt plans to discharge the week of 12/31/18; continue to address functional strength and mobility so she can return home alone with [facility] services; goals not fully met yet, but pt is making functional gains. Treatment Duration: 01/04/2019 Frequency: At least 5 of 7 days/Wk (IRF) Estimated Hrs Per Day: 1.5 hours per day Patient and/or Family Agrees t: Yes Rehab Potential: Good PT Short Term Goals Short Term Goals Time Frame: Dec 11, 2018 Gait (FIM): 1 (met) Gait Distance Comment: 10' Gait Level of Assist: 3 Gait Assistive Device: Walker Robby Wheelchair Distance: 150' PT Cork Wirer Goals Alf Goals PT Alf Goals Time Frame: Dec 25, 2018 Transfers (B,C,W/C) (FIM): 4 Gait (FIM): 2 Distance: 50' Gait Level of Assist: 4 Gait Assistive Device: Walker Robby Stairs (FIM): 1 # of Steps: 1 Stairs Level Of Assist: 4 MADHAVI HOU PT Dec 31, 2018 12:19
--- NOTE | 2018-12-31 12:20 | Speech Therapy Daily Note ---
Speech Daily Progress Note Subjective Date Seen by Provider: Dec 31, 2018 Time Seen by Provider: 00:30 The patient was resting in her recliner when I entered the room. Objective The patient consumed breakfast and drinks with utilization of compensatory strategies at 90% with minimal cues. Assessment Assessment Current Status: Excellent Progress Treatment Plan Continue Plan of Care Communication Comprehension: 7 Expression: 7 Social Cognition Social Interaction: 7 Problem Solvin Memory: 7 Speech Short Term Goals Short Term Goals Short Term Goals 1) Patient will utilize compensatory strategies as trained for safe oral intake of the least restrictive diet with 90% or greater. 2) Patient will demonstrate safe oral intake of the least restrictive diet level with 90% or greater. Speech Criminal Investigator Customs Goals Criminal Investigator Customs Goals Patient will maintain adequate nutrition/hydration via safe effective swallow function. Speech-Plan Patient/Family Goals Patient/Family Goals: The patient plans to return home post rehab. Treatment Plan Speech Therapy Treatment Plan: Continue Plan of Care Patient has made excellent progress as a result of skilled ST. Treatment Duration: Dec 28, 2018 Frequency: 5 times per week Estimated Hrs Per Day: .5 hour per day Rehab Potential: Good Barriers to Learning: Patient's stroke was recent. Pt/Family Agrees to Plan: Yes Safety Risks/Education Teaching Recipient: Patient Teaching Methods: Discussion Response to Teaching: Verbalize Understanding Education Topics Provided: Safety of oral intake. Time Speech Therapy Time In: 11:30 Speech Therapy Time Out: 12:00 Total Billed Time: 30 Billed Treatment Time [address] Dec 31, 2018 12:20
--- NOTE | 2018-12-31 12:24 | Speech Therapy Rehab Re-Cert ---
Speech Re-Certification Form Treatment Duration: 3 Weeks Speech Therapy Treatment Plan: Continue Plan of Care # of days/week 5 days a week Visits Per Week: 5 visits a week Minutes/Day (M-F): 30 minutes Minutes/Day (Sat/Kumar): Zero minutes Rehab Potential: Good Barriers to Learning: Patient is a new CVA Patient and/or Family Agrees t: Yes Speech Short Term Goals Short Term Goals Short Term Goals 1) Patient will utilize compensatory strategies as trained for safe oral intake of the least restrictive diet with 90% or greater. Continue 2) Patient will demonstrate safe oral intake of the least restrictive diet level with 90% or greater. Continue Speech Evidence Custodian Goals Longterm Goals Patient will maintain adequate nutrition/hydration via safe effective swallow function. Continue MONTY PIMENTEL Dec 31, 2018 12:24
--- NOTE | 2018-12-31 14:47 | NUR ---
out o pass at this time. Assisted to private vehicle accompanied by niece. wheelchair and vanesa cane sent with pt
--- NOTE | 2018-12-31 14:55 | Therapy Group Daily Note ---
Therapy Daily Group Note Patient Education Topic Home Safety, Exercises Exercises LE Seated Exercise, UE Exercise Session Ratio (pt:therapist): 3:1 Goal of Session: Home Safety Strategies, UE/LE Strengthing Goal Met for this Session: Yes Pt Benefit of Group: Contributions to Others, F/U Use of Strategies @Home, Increased Functional Safety, Increased Functional Strength, Improved Cognition, Recognition of Peers, Socialization Other/Notes Pt ambulated to OT/PT group [facility]. Group consisted of introductions (name, place, worst fall), socialization, UE/LE seated exercises using cans of food, educational topics of home safety and home exercises. Pt introduced self appropriately and actively listened to peers. When asked question about home safety pt able to give correct answers 100% of the time. Completed UE/LE seated exercises with minimal assist with L UE due to diagnosis. Pt acknowledged and verbalized understanding of educational topics. Able to give personal strategies and experiences throughout group. After therapy, pt sitting in recliner with call light/phone in reach. All needs met in room. Start Time: 13:00 Stop Time: 14:15 Total Billed Treatment Time: 75 Total Billed Treatment 1-GRP MADHAVI MENA Dec 31, 2018 14:55
--- NOTE | 2018-12-31 15:04 | Occ Therapy Rehab Re-Cert ---
OT Re-Certification Form Plan of Care: ADL Retraining, Functional Mobility, Group Exercise/Act as Ind, UE Funct Exercise/Act, UE Neuromus Re-Ed/Coord Pt. has been seen by occupational therapy to increase overall strength and independence with daily tasks. Pt. has made great progress, and met several goals. Pt. continues to require SBA with ADL transfers and min assist with LE dressing. Pt. has made improvement in left UE function and mobility. Demonstrates movement in all joints. Pt. is motivated to continue with therapy. Treatment Duration: 2 weeks Frequency: At least 5 of 7 days/Wk (IRF) Estimated Hrs Per Day: 1.5 hours per day Agreement: Yes Rehab Potential: Good OT Short Term Goals Short Term Goals Time Frame: Dec 11, 2018 Upper Body Dressing(FIM): 3 Lower Body Dressing(FIM): 3 Toileting(FIM): 3 Toilet/Commode Transfer(FIM): 3 Additional Short Term Goals: 1-Demonstrate ADL Tasks, 2-Verbalize Understanding , 3-ImproveStrength/Angelita 1=Demonstrate adherence to instructed precautions during ADL tasks. 2=Patient will verbalize/demonstrate understanding of assistive devices/ modifications for ADL. 3=Patient will improve strength/tolerance for activity to enable patient to perform ADL's. OT Numerical Control Lathe Operator Goals Numerical Control Lathe Operator Goals Time Frame: Dec 28, 2018 Eating (FIM): 6 Grooming(FIM): 6 Bathing(FIM): 4 Upper Body Dressing(FIM): 5 Lower Body Dressing(FIM): 5 Toileting(FIM): 5 Toilet/Commode Transfer(FIM): 5 Shower Transfer(FIM): 5 Additional Goals: 1-Demonstrate ADL Tasks, 2-Verbalize Understanding, 3- ImproveStrength/Angelita 1=Demonstrate adherence to instructed precautions during ADL tasks. 2=Patient will verbalize/demonstrate understanding of assistive devices/ modifications for ADL. 3=Patient will improve strength/tolerance for activity to enable patient to perform ADL's. CHELI LOPEZ OT Dec 31, 2018 15:03
[2018-12-31 18:00] VITALS: BP 109/67
[2018-12-31] MEDS: ATORVASTATIN 20 MG (LIPITOR) TABLET PO SCH (21:16)
[2018-12-31] MEDS: ACETAMINOPHEN 500 MG TAB (TYLENOL) PO PRN (21:25)
[2019-01-01] MEDS: LEVOTHYROXINE 50 MCG (LEVOTHROID) TAB PO SCH (06:24)
[2019-01-01] MEDS: inSUlin ASPART (NovoLOG) 1 UNIT/0.01 ML (CHARGE PER UNIT) SC SCH ×4 (06:24→20:56)
[2019-01-01] MEDS: HYDROcodone/APAP 5 MG/325 MG (LORTAB) TAB PO PRN (06:24)
[2019-01-01 06:30] VITALS: BP 151/73
[2019-01-01] MEDS: ENOXAPARIN 40 MG/0.4 ML (LOVENOX) SYR SC SCH ×2 (08:34→20:25)
[2019-01-01] MEDS: PIOGLITAZONE 30MG (ACTOS) TAB PO SCH ×2 (08:35→20:25)
[2019-01-01] MEDS: CELECOXIB 100 MG (CeleBREX) CAP PO SCH ×2 (08:35→20:25)
[2019-01-01] MEDS: ASPIRIN E.C. 81 MG (ECOTRIN) TAB PO SCH (08:35)
[2019-01-01] MEDS: amLODIPine 10 MG (NORVASC) TAB PO SCH (08:35)
[2019-01-01] MEDS: TRIAMTERENE/HCTZ 75-50 (MAXZIDE,DYAZIDE) TABLET PO SCH (08:35)
[2019-01-01] MEDS: PANTOPRAZOLE 20 MG TABLET (PROTONIX) PO SCH (08:35)
[2019-01-01] MEDS: DOCUSATE SODIUM 100 MG (COLACE) CAP PO SCH ×2 (09:00→20:25)
--- NOTE | 2019-01-01 09:12 | PM&R Progress Note ---
Subjective HPI/CC On Admission Date Seen by Provider: Jan 01, 2019 Time Seen by Provider: 09:00 Chief complaint: Stroke with left sided weakness and dysphasia. HPI: This is a 68yoWF who moved to [place] in 2011 but remained a patient of TERESA Monroe doctor who presented with left sided weakness diagnosed with a stroke (out of tPA window of candidacy) and has been actively pursuing rehab since that time. At this current time she is still have dysphasia and difficulty speaking but her thought process is intact and she will need intensive therapy for the left sided weakness. Curry catheter has been maintained and that will be discontinued. Bowels are moving she reports after meds were given. I reviewed all of her home medication that included Celebrex and will maintain on Aspirin and low dose Statin therapy following a stroke per protocol. Pt is agreeable for inpatient rehab and intensive therapy to regain function following a devastating stroke with left sided weakness. She lives at home alone. 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 Pt does have chronic pain, fibromyalgia, and osteoarthritis that she struggles with on an ongoing basis. Subjective/Events-last exam Thinks she is doing very well Day pass went very well yesterday but carpet it harder to navigate on than the concrete floors Denies new pain issues Progressing well Overall participating in therapies Somatic complaints still occur every day Slept well DC planned for tomorrow Wrote HH orders today in prep for DC tomorrow Review of Systems Neurological: Weakness, Numbness, Incoordination Objective Exam Vital Signs Vital Signs Date Time Temp Pulse Resp B/P (MAP) Pulse Ox O2 Delivery O2 Flow Rate FiO2 01/01/19 09:00 Room Air 01/01/19 06:30 96.9 63 18 151/73 (99) 95 Capillary Refill : General Appearance: No Apparent Distress, WD/WN, Chronically ill, Obese HEENT: PERRL/EOMI, Normal ENT Inspection, Pharynx Normal, Moist Mucous Membranes Neck: Full Range of Motion, Normal Inspection, Non Tender, Supple Respiratory: Chest Non Tender, Lungs Clear, Normal Breath Sounds, No Accessory Muscle Use, No Respiratory Distress Cardiovascular: Regular Rate, Rhythm, No Edema, No Gallop, No JVD, No Murmur Gastrointestinal: Normal Bowel Sounds, No Organomegaly, No Pulsatile Mass, Non Tender, Soft Back: Normal Inspection, No CVA Tenderness, No Vertebral Tenderness Extremity: Normal Capillary Refill, Normal Inspection, Normal Range of Motion ( except left upper ad lower extremity weakness), Non Tender, No Calf Tenderness, No Pedal Edema Neurologic/Psychiatric: Alert, Oriented x3, Normal Mood/Affect, Facial Droop ( left), Motor Weakness (left sided weakness, left facial droop, thickened speech but today, 12/10/18 left hand planner chief improved and 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
--- NOTE | 2019-01-01 09:27 | D/C HH Face to Face Order ---
D/C Face to Face Orders Instructions for Patient Via [facility], Patient Instructions/FollowUp: PCP in 1 week Physician to follow Patient: PCP Discharge Diet for Home: ADA Diet Patient Problems: CVA HTN HLP Goals for Patient: Return to independent living Patient Data-Allergies,Ht & Wt Patient Allergies: Coded Allergies: cinnamon (Verified Allergy, Severe, 11/29/18) DIFFICULTY BREATHING, ASTHMA ATTACK PER PATIENT MYRTLE Inhibitors (Unverified Allergy, Unknown, 06/16/15) Beta-Blockers (Beta-Adrenergic Bloc (Unverified Allergy, Unknown, 06/16/15) Ysaadbg-Lzd-Xvc Reductase Inhibitor (Unverified Allergy, Unknown, Myalgia , 12/04/18) tolerating atorvastatin 20mg 3.5.19 floxacillin (Unverified Allergy, Unknown, 06/16/15) potassium chloride (Unverified Allergy, Unknown, 06/16/15) Uncoded Allergies: EYE DROPS (Allergy, Unknown, 06/16/15) Height (Feet): 5 Height (Inches): 6.00 Weight (Pounds): 302 Weight (Ounces): 14.4 Home Health Need/Face to Face Date of Face to Face: Jan 01, 2019 Clinical Findings: Generalized weakness and fatigue, Muscle weakness, Unsteady gait I have seen Pt qxcx-zy-uloc: Yes Discharged To: Home Diagnosis/Conditions: CVA HTN HLP Patient is Homebound due to: Juan fall risk due to instabilty, Muscle weakness Homebound Status Due to the above stated illness, injury or surgical procedure (medical condition or diagnosis) and associated clinical findings, the patient is homebound because of his/her inability to leave home except with aid of a supportive device and/or person AND leaving the home requires a considerable and taxing effort or is medically contraindicated. Pt req the following assistanc: Walker Home Health Nursing Orders Home Health Services Order: Nursing Services, Food Stand Manager-Evaluate & Treat, Physical Therapy-Evaluate & Treat, Speech Language-Evaluate & Treat Bath aide Home Health Infusion Therapy Line Type: Saline Lock Certify Stmt I certify that this patient is under my care and that I, a nurse practitioner or a physician; a recreation assistant working with me, had a face to face encounter that - meets the physician face to face encounter requirements with this patient as dated. LOREN MILLER DO Jan 01, 2019 09:27
[2019-01-01] MEDS: TROLAMINE (ASPERCREME) 10% CR 90 GM TUBE TOP SCH ×2 (09:30→20:56)
--- NOTE | 2019-01-01 10:01 | Physical Therapy Daily Note ---
PT Daily Note-Current Subjective Patient in recliner pre tx, agrees to PT, has no complaints of pain at rest. Patient got a new wheelchair at the beginning of treatment and she sat in it and it fit as far as width, it didn't have a cushion which the vendor forgot. Appearance Patient in recliner post tx with nurse call, phone, tray, all needs met. Mental Status Patient Orientation: Person, Place, Situation Transfers Therapy Code Descriptions/Definitions Functional [place] Measure: 0=Not Assessed/NA 4=Minimal Assistance 1=Total Assistance 5=Supervision or Setup 2=Maximal Assistance 6=Modified [place] 3=Moderate Assistance 7=Complete [place] Therapy Quality Codes: 6 Independent with activity with or without an assistive device 5 Patient requires set up or clean up by helper. Patient completes activity by themselves 4 Supervision or touching assist (CGA). [place] provide cues , steadying assist 3 The helper provides less than half the effort to complete the activity 2 The helper provides more than half the effort to complete the activity 1 Dependent. The helper does all the effort to complete an activity 7 Patient refused to complete or attempt activity 9 The patient did not perform the activity before the current illness or injury 88 Not attempted due to Medical conditions or safety concerns Transfers (B, C, W/C) (FIM): 6 Scootin Rollin Roll Left to Right (QC): 6 Supine to/from Sit: 6 Sit to/from Stand: 6 Sit to Lying (QC): 6 Sit to Stand (QC): 6 Chair/Gbn-qr-Tfzuf Xfer(QC): 6 Bed to/from Chair: 6 Car Transfer (QC): 6 Patient performs bed mobility with mod I, supine <-> sit with mod I, sit <-> stand with mod I, transfers with mod I, car transfers mod I. Weight Bearing Right Lower Extremity: Right Full Weight Bearing Left Lower Extremity: Left Full Weight Bearing Gait Training Gait (FIM): 6 Distance: 200', 150' Walk 10 feet (QC): 6 Walk 50 ft with 2 Turns(QC): 6 Walk 150 ft (QC): 6 Walking 10ft/uneven surface-QC: 4 Gait Level of Assist: 6 Gait Assistive Device: Walker Robby Patient can ambulate 200' with a hemiwalker with mod I (including 50' with at least 2 turns of 90 degrees but needs SBA when ambulating 10' over an uneven surface). Patient ambulates slowly and with a wide DELFINA and tends to keep the hemiwalker in front of her instead of to the side. Wheelchair Training Does the Pt Use a Wheelchair?: No Stair Training Stairs (FIM): 0 Patient attempted to go up and down just one step and could get her right foot on the step but could not step up. She states she could not really do steps even before her stroke due to arthritis and a meniscal tear in her knee. Exercises NuStep Minutes: 10 NuStep Workload: 5 Treatments bed mobility and transfers, ambulation, stair training, functional strengthening Assessment Current Status: Fair Progress patient is mod I with ambulation over level surfaces PT Short Term Goals Short Term Goals Time Frame: Dec 11, 2018 Gait (FIM): 1 (met) Gait Distance Comment: 10' Gait Level of Assist: 3 Gait Assistive Device: Walker Robby Wheelchair Distance: 150' PT Halfway Goals Retail Marketing Specialist Goals PT Retail Marketing Specialist Goals Time Frame: Dec 25, 2018 Transfers (B,C,W/C) (FIM): 4 (met) Sit to Lying (QC): 3 (met) Lying-Sitting on Side/Bed(QC): 3 (met) Sit to Stand (QC): 3 (met) Rollin (met) Roll Left to Right (QC): 3 (met) Chair/Ute-oh-Xawrh Xfer(QC): 3 (met) Car Transfer (QC): 3 (met) Gait (FIM): 2 (met) Distance: 50' Walk 10 feet (QC): 3 (met) Walk 10ft-Uneven Surface(QC): 3 (met) Walk 50ft with 2 Turns (QC): 3 (met) Walk 150 ft (QC): 3 (met) Gait Level of Assist: 4 (met) Gait Assistive Device: Walker Robby Stairs (FIM): 1 # of Steps: 1 1 Step (curb) (QC): 3 Stairs Level Of Assist: 4 PT Plan Problem List Problem List: Activity Tolerance, Functional Strength, Safety, Balance, Gait, Transfer Treatment/Plan Treatment Plan: Continue Plan of Care Treatment Plan: Bed Mobility, Concurrent Therapy, Education, Functional Activity Angelita, Functional Strength, Group Therapy, Gait, Safety, Therapeutic Exercise, Transfers Treatment Duration: Dec 25, 2018 Frequency: At least 5 of 7 days/Wk (IRF) Estimated Hrs Per Day: 1.5 hours per day Patient and/or Family Agrees t: Yes Safety Risks/Education Patient Education: Gait Training, Transfer Techniques, Steps, Correct Positioning, Safety Issues Teaching Recipient: Patient Teaching Methods: Demonstration, Discussion Response to Teaching: Reinforcement Needed Time/GCodes Time In: 0900 Time Out: 1000 Total Billed Treatment Time: 60 Total Billed Treatment 1 visit EX 10' GT 30' FA 20' MEGHAN DYER PT Jan 01, 2019 10:01
--- NOTE | 2019-01-01 11:16 | Occupational Ther Daily Note ---
OT Current Status-Daily Note Subjective No pain reported. Appearance Pt. up in chair. Agrees to shower. Mental Status/Objective Patient Orientation: Person, Place, Time, Situation Therapy Code Descriptions/Definitions Functional [place] Measure: 0=Not Assessed/NA 4=Minimal Assistance 1=Total Assistance 5=Supervision or Setup 2=Maximal Assistance 6=Modified [place] 3=Moderate Assistance 7=Complete [place] ADL-Treatment Therapy Code Descriptions/Definitions Functional [place] Measure: 0=Not Assessed/NA 4=Minimal Assistance 1=Total Assistance 5=Supervision or Setup 2=Maximal Assistance 6=Modified [place] 3=Moderate Assistance 7=Complete [place] Therapy Quality Codes: 6 Independent with activity with or without an assistive device 5 Patient requires set up or clean up by helper. Patient completes activity by themselves 4 Supervision or touching assist (CGA). [place] provide cues , steadying assist 3 The helper provides less than half the effort to complete the activity 2 The helper provides more than half the effort to complete the activity 1 Dependent. The helper does all the effort to complete an activity 7 Patient refused to complete or attempt activity 9 The patient did not perform the activity before the current illness or injury 88 Not attempted due to Medical conditions or safety concerns Grooming (FIM): 6 (Mod I standing at sink to brush teeth and hair.) Oral Hygiene (QC): 5 Bathing (FIM): 5 (Set up) Shower/Bathe Self (QC): 5 Upper Body (FIM): 5 (Set up shirt only) Upper Body Dressing (QC): 5 Lower Body Dressing (FIM): 5 (Set up with AE) Lower Body Dressing (QC): 5 On/Off Footwear (QC): 5 Toileting (FIM): 6 Toileting Hygiene (QC): 6 Transfers (B, C, W/C) (FIM): 6 Toilet/Commode Transfer (FIM): 6 Toilet Transfer (QC): 6 Shower Transfer(FIM): 5 Education OT Patient Education: Correct positioning, Modified ADL techniques, Progress toward Goal/Update tx plan, Purpose of tx/functional activities, Reviewed precautions, Rehab process, Transfer techniques, Use of adapted equipment Teaching Recipient: Patient Teaching Methods: Demonstration, Discussion Response to Teaching: Verbalize Understanding, Return Demonstration OT Short Term Goals Short Term Goals Time Frame: Dec 11, 2018 Upper Body Dressing(FIM): 3 Lower Body Dressing(FIM): 3 Toileting(FIM): 3 Toilet/Commode Transfer(FIM): 3 Additional Short Term Goals: 1-Demonstrate ADL Tasks, 2-Verbalize Understanding , 3-ImproveStrength/Angelita 1=Demonstrate adherence to instructed precautions during ADL tasks. 2=Patient will verbalize/demonstrate understanding of assistive devices/ modifications for ADL. 3=Patient will improve strength/tolerance for activity to enable patient to perform ADL's. OT Residential Goals Senior Art Director Goals Time Frame: Dec 28, 2018 Eating (FIM): 6 Eating (QC): 6 Groomin Oral Hygiene (QC): 6 Bathing(FIM): 4 Shower/Bathe Self (QC): 4 Upper Body Dressing(FIM): 5 Upper Body Dressing (QC): 5 Lower Body Dressing(FIM): 5 Lower Body Dressing (QC): 5 On/Off Footwear (QC): 5 Toileting(FIM): 5 Toileting Hygiene (QC): 5 Toilet/Commode Transfer(FIM): 5 Toilet/Commode Transfer (QC): 5 Shower Transfer(FIM): 5 Additional Goals: 1-Demonstrate ADL Tasks, 2-Verbalize Understanding, 3- ImproveStrength/Angelita 1=Demonstrate adherence to instructed precautions during ADL tasks. 2=Patient will verbalize/demonstrate understanding of assistive devices/ modifications for ADL. 3=Patient will improve strength/tolerance for activity to enable patient to perform ADL's. OT Education/Plan Problem List/Assessment Assessment: Decreased Activ Tolerance Discharge Recommendations Plan/Recommendations: Continue POC Therapy D/C Recommendations: Home w/ Family Support, Occupational Therapy Home Care Equpiment Recommendations-D/C: Hip Kit Treatment Plan/Plan of Care Treatment,Training & Education: Yes Patient would benefit from OT for education, treatment and training to promote independence in ADL's, mobility, safety and/or upper extremity function for ADL' s. Plan of Care: ADL Retraining, Functional Mobility, Group Exercise/Act as Ind, UE Funct Exercise/Act, UE Neuromus Re-Ed/Coord Treatment Duration: Dec 28, 2018 Frequency: At least 5 of 7 days/Wk (IRF) Estimated Hrs Per Day: 1.5 hours per day Agreement: Yes Rehab Potential: Good Time/GCodes Start Time: 10:00 Stop Time: 10:55 Total Time Billed (hr/min): 55 Billed Treatment Time 1, ADL x 4 CHELI LOPEZ OT Jan 01, 2019 11:16
--- NOTE | 2019-01-01 11:38 | Speech Therapy Daily Note ---
Speech Daily Progress Note Subjective Date Seen by Provider: Jan 01, 2019 Time Seen by Provider: 00:30 The patient was happy to be going home tomorrow. Objective The patient consumed a snack and a drink with continued utilization of compensatory strategies at 90% without verbal cues. Assessment Assessment Current Status: Excellent Progress Treatment Plan Continue Plan of Care Communication Comprehension: 7 Expression: 7 Social Cognition Social Interaction: 7 Problem Solvin Memory: 7 Speech Short Term Goals Short Term Goals Short Term Goals 1) Patient will utilize compensatory strategies as trained for safe oral intake of the least restrictive diet with 90% or greater. Continue 2) Patient will demonstrate safe oral intake of the least restrictive diet level with 90% or greater. Continue Speech Director Athletic Goals Director Athletic Goals Patient will maintain adequate nutrition/hydration via safe effective swallow function. Continue Speech-Plan Patient/Family Goals Patient/Family Goals: The patient will be returning home 01/02/19 with family support. Treatment Plan Speech Therapy Treatment Plan: Continue Plan of Care The patient has made excellent progress as a result of skilled ST. Treatment Duration: Dec 28, 2018 Frequency: 5 times per week Estimated Hrs Per Day: .5 hour per day Rehab Potential: Good Barriers to Learning: The patient's CVA is recent. Pt/Family Agrees to Plan: Yes Safety Risks/Education Teaching Recipient: Patient Teaching Methods: Discussion Response to Teaching: Verbalize Understanding Education Topics Provided: Safety within her home. Time Speech Therapy Time In: 11:00 Speech Therapy Time Out: 11:30 Total Billed Time: 30 Billed Treatment Time 1, FEDERICO MONTY Roland Jan 01, 2019 11:38
[2019-01-01] MEDS: ACETAMINOPHEN 500 MG TAB (TYLENOL) PO PRN ×2 (13:58→20:56)
--- NOTE | 2019-01-01 13:59 | Physical Therapy Daily Note ---
PT Daily Note-Current Subjective Patient in recliner pre tx, agrees to PT, no complaints of pain. Appearance Patient in recliner post tx with nurse call, phone, tray, all needs met. Mental Status Patient Orientation: Person, Place, Situation Transfers Therapy Code Descriptions/Definitions Functional [place] Measure: 0=Not Assessed/NA 4=Minimal Assistance 1=Total Assistance 5=Supervision or Setup 2=Maximal Assistance 6=Modified [place] 3=Moderate Assistance 7=Complete [place] Therapy Quality Codes: 6 Independent with activity with or without an assistive device 5 Patient requires set up or clean up by helper. Patient completes activity by themselves 4 Supervision or touching assist (CGA). [place] provide cues , steadying assist 3 The helper provides less than half the effort to complete the activity 2 The helper provides more than half the effort to complete the activity 1 Dependent. The helper does all the effort to complete an activity 7 Patient refused to complete or attempt activity 9 The patient did not perform the activity before the current illness or injury 88 Not attempted due to Medical conditions or safety concerns Transfers (B, C, W/C) (FIM): 6 Sit to/from Stand: 6 Bed to/from Chair: 6 Weight Bearing Right Lower Extremity: Right Full Weight Bearing Left Lower Extremity: Left Full Weight Bearing Gait Training Gait (FIM): 6 Distance: 150'x2 Gait Level of Assist: 6 Gait Assistive Device: Walker Robby Slow ambulation, wide DELFINA, patient keeps hemiwalker in front instead of to the side. Exercises Seated Therapy Exercises: Ankle pumps, Long arc quads, Hip flexion Seated Reps: 20 Treatments transfers, ambulation, functional strengthening Assessment Current Status: Fair Progress improving endurance PT Short Term Goals Short Term Goals Time Frame: Dec 11, 2018 Gait (FIM): 1 (met) Gait Distance Comment: 10' Gait Level of Assist: 3 Gait Assistive Device: Walker Robby Wheelchair Distance: 150' PT Half-Way Goals Supervisor Pit And Auxiliaries Goals PT Supervisor Pit And Auxiliaries Goals Time Frame: Dec 25, 2018 Transfers (B,C,W/C) (FIM): 4 (met) Sit to Lying (QC): 3 (met) Lying-Sitting on Side/Bed(QC): 3 (met) Sit to Stand (QC): 3 (met) Rollin (met) Roll Left to Right (QC): 3 (met) Chair/Vlw-cl-Xrmsm Xfer(QC): 3 (met) Car Transfer (QC): 3 (met) Gait (FIM): 2 (met) Distance: 50' Walk 10 feet (QC): 3 (met) Walk 10ft-Uneven Surface(QC): 3 (met) Walk 50ft with 2 Turns (QC): 3 (met) Walk 150 ft (QC): 3 (met) Gait Level of Assist: 4 (met) Gait Assistive Device: Walker Robby Stairs (FIM): 1 # of Steps: 1 1 Step (curb) (QC): 3 Stairs Level Of Assist: 4 PT Plan Problem List Problem List: Activity Tolerance, Functional Strength, Safety, Balance, Gait, Transfer, Bed Mobility, ROM Treatment/Plan Treatment Plan: Continue Plan of Care Treatment Plan: Bed Mobility, Concurrent Therapy, Education, Functional Activity Angelita, Functional Strength, Group Therapy, Gait, Safety, Therapeutic Exercise, Transfers Treatment Duration: Dec 25, 2018 Frequency: At least 5 of 7 days/Wk (IRF) Estimated Hrs Per Day: 1.5 hours per day Patient and/or Family Agrees t: Yes Safety Risks/Education Patient Education: Gait Training, Transfer Techniques, Correct Positioning, Safety Issues Teaching Recipient: Patient Teaching Methods: Demonstration, Discussion Response to Teaching: Reinforcement Needed Time/GCodes Time In: 1330 Time Out: 1400 Total Billed Treatment Time: 30 Total Billed Treatment 1 visit GT 20' EX 10' MEGHAN DYER PT Jan 01, 2019 13:59
--- NOTE | 2019-01-01 14:24 | Occupational Ther Daily Note ---
OT Current Status-Daily Note Subjective No pain reported. Appearance Pt. up in chair. Agrees to work with OT. Mental Status/Objective Patient Orientation: Person, Place, Time, Situation Therapy Code Descriptions/Definitions Functional [place] Measure: 0=Not Assessed/NA 4=Minimal Assistance 1=Total Assistance 5=Supervision or Setup 2=Maximal Assistance 6=Modified [place] 3=Moderate Assistance 7=Complete [place] ADL-Treatment Therapy Code Descriptions/Definitions Functional [place] Measure: 0=Not Assessed/NA 4=Minimal Assistance 1=Total Assistance 5=Supervision or Setup 2=Maximal Assistance 6=Modified [place] 3=Moderate Assistance 7=Complete [place] Therapy Quality Codes: 6 Independent with activity with or without an assistive device 5 Patient requires set up or clean up by helper. Patient completes activity by themselves 4 Supervision or touching assist (CGA). [place] provide cues , steadying assist 3 The helper provides less than half the effort to complete the activity 2 The helper provides more than half the effort to complete the activity 1 Dependent. The helper does all the effort to complete an activity 7 Patient refused to complete or attempt activity 9 The patient did not perform the activity before the current illness or injury 88 Not attempted due to Medical conditions or safety concerns Transfers (B, C, W/C) (FIM): 6 Other Treatment Pt. ambulated to therapy dining area with new vanesa cane and Mod I. Stood at table and worked on weight bearing through left hand, while taking therapy clothespins off bar. Transferred weight to right side and worked on putting pegs on with left hand. Pt. able to do the very low resistive clothespins, but then had difficulty as the resistance increased. Pt. then worked on fine motor coordination tasks with walking fingers across table, flexing bicep, and completing active wrist extension and supination exercises. Pt. requires rest breaks at times, and is encouraged to not hold her breath with activity, as she tends to do. Still little movement noted in left shoulder. Ambulated back to room. All needs met. Education OT Patient Education: Correct positioning, Exercise program, Modified ADL techniques, Progress toward Goal/Update tx plan, Purpose of tx/functional activities, Reviewed precautions, Rehab process, Transfer techniques Teaching Recipient: Patient Teaching Methods: Demonstration, Discussion Response to Teaching: Verbalize Understanding, Return Demonstration OT Short Term Goals Short Term Goals Time Frame: Dec 11, 2018 Upper Body Dressing(FIM): 3 Lower Body Dressing(FIM): 3 Toileting(FIM): 3 Toilet/Commode Transfer(FIM): 3 Additional Short Term Goals: 1-Demonstrate ADL Tasks, 2-Verbalize Understanding , 3-ImproveStrength/Angelita 1=Demonstrate adherence to instructed precautions during ADL tasks. 2=Patient will verbalize/demonstrate understanding of assistive devices/ modifications for ADL. 3=Patient will improve strength/tolerance for activity to enable patient to perform ADL's. OT Veterinary Laboratory Diagnostician Goals Half-Way Goals Time Frame: Dec 28, 2018 Eating (FIM): 6 Eating (QC): 6 Groomin Oral Hygiene (QC): 6 Bathing(FIM): 4 Shower/Bathe Self (QC): 4 Upper Body Dressing(FIM): 5 Upper Body Dressing (QC): 5 Lower Body Dressing(FIM): 5 Lower Body Dressing (QC): 5 On/Off Footwear (QC): 5 Toileting(FIM): 5 Toileting Hygiene (QC): 5 Toilet/Commode Transfer(FIM): 5 Toilet/Commode Transfer (QC): 5 Shower Transfer(FIM): 5 Additional Goals: 1-Demonstrate ADL Tasks, 2-Verbalize Understanding, 3- ImproveStrength/Angelita 1=Demonstrate adherence to instructed precautions during ADL tasks. 2=Patient will verbalize/demonstrate understanding of assistive devices/ modifications for ADL. 3=Patient will improve strength/tolerance for activity to enable patient to perform ADL's. OT Education/Plan Problem List/Assessment Assessment: Decreased Activ Tolerance Discharge Recommendations Plan/Recommendations: Continue POC Therapy D/C Recommendations: Home w/ Family Support, Occupational Therapy Home Care Equpiment Recommendations-D/C: Hip Kit Treatment Plan/Plan of Care Treatment,Training & Education: Yes Patient would benefit from OT for education, treatment and training to promote independence in ADL's, mobility, safety and/or upper extremity function for ADL' s. Plan of Care: ADL Retraining, Functional Mobility, Group Exercise/Act as Ind, UE Funct Exercise/Act, UE Neuromus Re-Ed/Coord Treatment Duration: Dec 28, 2018 Frequency: At least 5 of 7 days/Wk (IRF) Estimated Hrs Per Day: 1.5 hours per day Agreement: Yes Rehab Potential: Good Time/GCodes Start Time: 13:10 Stop Time: 13:30 Total Time Billed (hr/min): 20 Billed Treatment Time 1, Ex x 20minutes CHELI LOPEZ OT Jan 01, 2019 14:24
[2019-01-01 18:19] VITALS: BP 145/71
--- NOTE | 2019-01-01 19:55 | NUR ---
after multiple attempts of attempting to reach out to local contractors and area providers for ramp installation, SILK FOLDER reached out to [facility]. SILK FOLDER was in contact with [place] and the contractor for [employer] was able to complete the ramp yesterday and patient paid privately. Patient completed home visit yesterday and reports comfort with returning home; however, also reports extreme fatigue. As SILK FOLDER assisted patient in ordering DME items from [employer] with SILK FOLDER's credit card attached to account, patient provided SILK FOLDER with total cost of $160.90. [place] exchange was witnessed by Anu Espinoza RN. Patient reviewed provided home health list, she wishes to proceed with [facility]. SILK FOLDER reached out to [facility] at [facility] to inquire about staffing with potential for RN, PT, OT, ST and bath aide services. [facility] states the services are available and facility can accept. [employer] items as hemiwalker, bed rail, toilet seat riser and tub shower transfer bench are located in SILK FOLDER's office and will be sent home with patient tomorrow. [facility] DME delivered wheelchair and leg extensions today; however, cushion was not sent. SILK FOLDER will contact [facility] for cushion delivery. patient's granddaughter intends to provide transport home tomorrow at 4 p.m. Addendum: 01/02/19 at 1138 by MINA CORONADO RN was able to establish new PCP appointment with Dr. Renaldo Banegas on 01/10. Her Dr. Singh, Dr. Banegas is fine with following home health orders prior to appointment; however, if patient has emergency prior to appointment Dr. Singh is to be contacted.
[2019-01-01] MEDS: ATORVASTATIN 20 MG (LIPITOR) TABLET PO SCH (20:24)
[2019-01-02] MEDS: LEVOTHYROXINE 50 MCG (LEVOTHROID) TAB PO SCH (05:47)
[2019-01-02] MEDS: HYDROcodone/APAP 5 MG/325 MG (LORTAB) TAB PO PRN (05:47)
[2019-01-02] MEDS: inSUlin ASPART (NovoLOG) 1 UNIT/0.01 ML (CHARGE PER UNIT) SC SCH ×3 (05:57→16:18)
[2019-01-02 06:03] VITALS: BP 134/76
[2019-01-02 08:00] VITALS: BP 150/71
[2019-01-02] MEDS ORDERED: ASPI-983 PO (08:11)
[2019-01-02] MEDS ORDERED: ATOR20TA66 PO (08:11)
[2019-01-02] MEDS ORDERED: HYDR-3816 PO (08:11)
--- NOTE | 2019-01-02 08:13 | Discharge Summary ---
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 stroke with left sided weakness HTN HTG HLP Hypothyroidism STEPH on CPAP Hypokalemia chronic and allergic to supplement DM OOC DVT PPx with Lovenox Right wrist pain negative fracture on xray Plan: Intensive PT/OT/Speech therapies Monitor bowel function Fall risk management Actos tolerated Continue statin and therapies DC home soon once barriers to DC are resolved: ramp for wheelchair, rails in shower, replaced CPAP CPAP use DC in am Discharge Summary Discharge Physical Examination Allergies: Coded Allergies: cinnamon (Verified Allergy, Severe, 11/29/18) DIFFICULTY BREATHING, ASTHMA ATTACK PER PATIENT MYRTLE Inhibitors (Unverified Allergy, Unknown, 06/16/15) Beta-Blockers (Beta-Adrenergic Bloc (Unverified Allergy, Unknown, 06/16/15) Gtxghcm-Hkn-Ukh Reductase Inhibitor (Unverified Allergy, Unknown, Myalgia , 12/04/18) tolerating atorvastatin 20mg 3.5.19 floxacillin (Unverified Allergy, Unknown, 06/16/15) potassium chloride (Unverified Allergy, Unknown, 06/16/15) Uncoded Allergies: EYE DROPS (Allergy, Unknown, 06/16/15) Vitals & I&Os Vital Signs Date Time Temp Pulse Resp B/P (MAP) Pulse Ox O2 Delivery O2 Flow Rate FiO2 01/02/19 17:12 67 18 150/71 94 Room Air 01/02/19 06:03 97.2 Hospital Course Was the Problem List Reviewed?: Yes Hospital course: Pt had a lengthy hospital course for 29 day sin the inpatient rehab unit. She participated in all therapies and everything that was required to maintain in inpatient rehab. No medications were changed during the hospital course and she tolerated statin therapy and aspirin therapy and hydrocodone as she had on her list in [facility]. Overall she had a remarkable recovery and was able to return home as she wished with home health, physical therapy, and occupational therapy along with a bath aide and the use of a quad cane to be able to walk in her house and was able to have all the arrangements in place, along with a wheelchair with wheel chair pad and impressive improvement in the left sided deficit from the catastrophic CVA that was not deemed a tPA candidate since presented so far after the initial insult. She was improved, vitals remained stable, all medications reviewed and approved. I did speak with Dr. Renaldo Banegas who will become her new primary care doctor in [place] and he will assume her care in one week when he sees her in his clinic. Labs (last 24 hrs) Laboratory Tests 12/04/18 11:16: Glucometer 200H 12/04/18 15:36: Glucometer 145H 12/04/18 21:45: Glucometer 152H 12/05/18 05:39: Glucometer 163H 12/05/18 05:50: White Blood Count 6.0, Red Blood Count 3.95L, Hemoglobin 12.4, Hematocrit 39, Mean Corpuscular Volume 98, Mean Corpuscular Hemoglobin 31, Mean Corpuscular Hemoglobin Concent 32, Red Cell Distribution Width 13.7, Platelet Count 204, Mean Platelet Volume 10.2, Neutrophils (%) (Auto) 60, Lymphocytes (%) (Auto) 30 , Monocytes (%) (Auto) 8, Eosinophils (%) (Auto) 2, Basophils (%) (Auto) 1, Neutrophils # (Auto) 3.6, Lymphocytes # (Auto) 1.8, Monocytes # (Auto) 0.5, Eosinophils # (Auto) 0.1, Basophils # (Auto) 0.0, Sodium Level 139, Potassium Level 3.4L, Chloride Level 104, Carbon Dioxide Level 27, Anion Gap 8, Blood Urea Nitrogen 10, Creatinine 0.68, Estimat Glomerular Filtration Rate > 60, BUN/ Creatinine Ratio 15, Glucose Level 164H, Mean Blood Glucose 192H, Hemoglobin A1c 8.3H, Calcium Level 9.0, Corrected Calcium 9.3, Total Bilirubin 0.5, Aspartate Amino Transf (AST/SGOT) 18, Alanine Aminotransferase (ALT/SGPT) 19, Alkaline Phosphatase 58, Total Protein 6.2L, Albumin 3.6 12/05/18 11:10: Glucometer 209H 12/05/18 16:26: Glucometer 138H 12/05/18 21:38: Glucometer 226H 12/06/18 05:51: Glucometer 154H 12/06/18 11:23: Glucometer 212H 12/06/18 17:42: Glucometer 159H 12/06/18 21:21: Glucometer 199H 12/07/18 05:21: Glucometer 174H 12/07/18 11:22: Glucometer 174H 12/07/18 17:02: Glucometer 168H 12/07/18 21:26: Glucometer 222H 12/08/18 05:45: Glucometer 159H 12/08/18 11:15: Glucometer 172H 12/08/18 17:06: Glucometer 164H 12/08/18 21:24: Glucometer 188H 12/09/18 05:55: Glucometer 151H 12/09/18 13:09: Glucometer 167H 12/09/18 17:05: Glucometer 177H 12/09/18 20:29: Glucometer 183H 12/10/18 06:37: Glucometer 170H 12/10/18 11:28: Glucometer 168H 12/10/18 16:11: Glucometer 172H 12/10/18 17:05: Blood Gas Puncture Site RIGHT RADIAL, Blood Gas Patient Temperature 98.1, Arterial Blood pH 7.43, Arterial Blood Partial Pressure CO2 44, Arterial Blood Partial Pressure O2 66L, Arterial Blood HCO3 29H, Arterial Blood Total CO2 30.2 , Arterial Blood Oxygen Saturation 94, Arterial Blood Base Excess 4.6H, Elbert Test POSITIVE, Blood Gas Ventilator Setting NO, Blood Gas Inspired Oxygen ROOM AIR 12/10/18 21:02: Glucometer 172H 12/11/18 06:14: Glucometer 158H 12/11/18 11:08: Glucometer 197H 12/11/18 16:14: Glucometer 144H 12/11/18 21:39: Glucometer 144H 12/12/18 06:20: Glucometer 170H 12/12/18 11:13: Glucometer 144H 12/12/18 16:04: Glucometer 157H 12/12/18 21:21: Glucometer 174H 12/13/18 06:12: Glucometer 154H 12/13/18 11:33: Glucometer 133H 12/13/18 16:28: Glucometer 175H 12/13/18 21:07: Glucometer 174H 12/14/18 05:52: Glucometer 174H 12/14/18 10:58: Glucometer 149H 12/14/18 16:10: Glucometer 156H 12/14/18 20:59: Glucometer 174H 12/15/18 06:06: Glucometer 163H 12/15/18 11:18: Glucometer 187H 12/15/18 15:23: Glucometer 133H 12/15/18 21:01: Glucometer 189H 12/16/18 05:06: White Blood Count 5.1, Red Blood Count 4.04L, Hemoglobin 12.7, Hematocrit 39, Mean Corpuscular Volume 96, Mean Corpuscular Hemoglobin 31, Mean Corpuscular Hemoglobin Concent 33, Red Cell Distribution Width 13.8, Platelet Count 198, Mean Platelet Volume 10.4, Neutrophils (%) (Auto) 48, Lymphocytes (%) (Auto) 40 , Monocytes (%) (Auto) 10, Eosinophils (%) (Auto) 2, Basophils (%) (Auto) 1, Neutrophils # (Auto) 2.4, Lymphocytes # (Auto) 2.0, Monocytes # (Auto) 0.5, Eosinophils # (Auto) 0.1, Basophils # (Auto) 0.0, Sodium Level 138, Potassium Level 2.9L, Chloride Level 98, Carbon Dioxide Level 27, Anion Gap 13, Blood Urea Nitrogen 12, Creatinine 0.73, Estimat Glomerular Filtration Rate > 60, BUN/ Creatinine Ratio 16, Glucose Level 166H, Calcium Level 9.6, Corrected Calcium 9.7, Total Bilirubin 0.5, Aspartate Amino Transf (AST/SGOT) 19, Alanine Aminotransferase (ALT/SGPT) 21, Alkaline Phosphatase 53, Total Protein 6.6, Albumin 3.9 12/16/18 11:55: Glucometer 154H 12/16/18 16:51: Glucometer 161H 12/16/18 21:02: Glucometer 185H 12/17/18 05:57: Glucometer 199H 12/17/18 10:36: Glucometer 164H 12/17/18 15:53: Glucometer 211H 12/17/18 21:23: Glucometer 182H 12/18/18 05:48: Glucometer 187H 12/18/18 10:49: Glucometer 188H 12/18/18 16:00: Glucometer 161H 12/18/18 20:22: Glucometer 167H 12/19/18 05:06: Glucometer 182H 12/19/18 11:26: Glucometer 164H 12/19/18 16:48: Glucometer 155H 12/19/18 20:46: Glucometer 216H 12/20/18 05:51: Glucometer 195H 12/20/18 11:39: Glucometer 167H 12/20/18 15:55: Glucometer 211H 12/20/18 20:45: Glucometer 170H 12/21/18 05:24: Glucometer 171H 12/21/18 11:01: Glucometer 169H 12/21/18 15:57: Glucometer 165H 12/21/18 20:34: Glucometer 198H 12/22/18 05:08: Glucometer 197H 12/22/18 11:25: Glucometer 161H 12/22/18 15:59: Glucometer 218H 12/22/18 22:06: Glucometer 203H 12/23/18 04:10: White Blood Count 6.0, Red Blood Count 4.10L, Hemoglobin 13.1, Hematocrit 40, Mean Corpuscular Volume 97, Mean Corpuscular Hemoglobin 32, Mean Corpuscular Hemoglobin Concent 33, Red Cell Distribution Width 14.2, Platelet Count 234, Mean Platelet Volume 10.5H, Neutrophils (%) (Auto) 48, Lymphocytes (%) (Auto) 41 , Monocytes (%) (Auto) 9, Eosinophils (%) (Auto) 3, Basophils (%) (Auto) 1, Neutrophils # (Auto) 2.8, Lymphocytes # (Auto) 2.4, Monocytes # (Auto) 0.5, Eosinophils # (Auto) 0.2, Basophils # (Auto) 0.0, Sodium Level 140, Potassium Level 3.3L, Chloride Level 100, Carbon Dioxide Level 27, Anion Gap 13, Blood Urea Nitrogen 17, Creatinine 0.80, Estimat Glomerular Filtration Rate > 60, BUN/ Creatinine Ratio 21, Glucose Level 170H, Calcium Level 9.6, Corrected Calcium 9.6, Total Bilirubin 0.5, Aspartate Amino Transf (AST/SGOT) 24, Alanine Aminotransferase (ALT/SGPT) 25, Alkaline Phosphatase 52, Total Protein 6.9, Albumin 4.0 12/23/18 11:25: Glucometer 220H 12/23/18 16:20: Glucometer 174H 12/23/18 20:36: Glucometer 260H 12/24/18 06:02: Glucometer 177H 12/24/18 11:44: Glucometer 164H 12/24/18 16:34: Glucometer 164H 12/24/18 21:10: Glucometer 200H 12/25/18 05:28: Glucometer 174H 12/25/18 11:11: Glucometer 165H 12/25/18 16:33: Glucometer 172H 12/25/18 21:02: Glucometer 212H 12/26/18 06:30: Glucometer 173H 12/26/18 11:04: Glucometer 164H 12/26/18 16:25: Glucometer 183H 12/26/18 20:36: Glucometer 186H 12/27/18 05:28: Glucometer 156H 12/27/18 11:33: Glucometer 149H 12/27/18 17:06: Glucometer 159H 12/27/18 21:12: Glucometer 210H 12/28/18 06:16: Glucometer 167H 12/28/18 10:51: Glucometer 171H 12/28/18 16:57: Glucometer 151H 12/28/18 21:19: Glucometer 260H 12/29/18 05:22: Glucometer 167H 12/29/18 10:43: Glucometer 164H 12/29/18 15:35: Glucometer 158H 12/29/18 21:56: Glucometer 221H 12/30/18 06:21: Glucometer 155H 12/30/18 11:17: Glucometer 163H 12/30/18 16:06: Glucometer 158H 12/30/18 21:11: Glucometer 191H 12/31/18 05:15: Glucometer 164H 12/31/18 11:44: Glucometer 128H 12/31/18 16:50: Glucometer 163H 12/31/18 21:18: Glucometer 194H 01/01/19 06:22: Glucometer 157H 01/01/19 11:35: Glucometer 134H 01/01/19 16:24: Glucometer 159H 01/01/19 20:51: Glucometer 194H 01/02/19 05:49: Glucometer 166H 01/02/19 10:59: Glucometer 134H 01/02/19 16:01: Glucometer 169H [facility] Labs Laboratory Tests 12/04/18 11:16: Glucometer 200 12/04/18 15:36: Glucometer 145 12/04/18 21:45: Glucometer 152 12/05/18 05:39: Glucometer 163 12/05/18 05:50: White Blood Count 6.0, Red Blood Count 3.95, Hemoglobin 12.4, Hematocrit 39, Mean Corpuscular Volume 98, Mean Corpuscular Hemoglobin 31, Mean Corpuscular Hemoglobin Concent 32, Red Cell Distribution Width 13.7, Platelet Count 204, Mean Platelet Volume 10.2, Neutrophils (%) (Auto) 60, Lymphocytes (%) (Auto) 30 , Monocytes (%) (Auto) 8, Eosinophils (%) (Auto) 2, Basophils (%) (Auto) 1, Neutrophils # (Auto) 3.6, Lymphocytes # (Auto) 1.8, Monocytes # (Auto) 0.5, Eosinophils # (Auto) 0.1, Basophils # (Auto) 0.0, Sodium Level 139, Potassium Level 3.4, Chloride Level 104, Carbon Dioxide Level 27, Anion Gap 8, Blood Urea Nitrogen 10, Creatinine 0.68, Estimat Glomerular Filtration Rate > 60, BUN/ Creatinine Ratio 15, Glucose Level 164, Mean Blood Glucose 192, Hemoglobin A1c 8.3, Calcium Level 9.0, Corrected Calcium 9.3, Total Bilirubin 0.5, Aspartate Amino Transf (AST/SGOT) 18, Alanine Aminotransferase (ALT/SGPT) 19, Alkaline Phosphatase 58, Total Protein 6.2, Albumin 3.6 12/05/18 11:10: Glucometer 209 12/05/18 16:26: Glucometer 138 12/05/18 21:38: Glucometer 226 12/06/18 05:51: Glucometer 154 12/06/18 11:23: Glucometer 212 12/06/18 17:42: Glucometer 159 12/06/18 21:21: Glucometer 199 12/07/18 05:21: Glucometer 174 12/07/18 11:22: Glucometer 174 12/07/18 17:02: Glucometer 168 12/07/18 21:26: Glucometer 222 12/08/18 05:45: Glucometer 159 12/08/18 11:15: Glucometer 172 12/08/18 17:06: Glucometer 164 12/08/18 21:24: Glucometer 188 12/09/18 05:55: Glucometer 151 12/09/18 13:09: Glucometer 167 12/09/18 17:05: Glucometer 177 12/09/18 20:29: Glucometer 183 12/10/18 06:37: Glucometer 170 12/10/18 11:28: Glucometer 168 12/10/18 16:11: Glucometer 172 12/10/18 17:05: Blood Gas Puncture Site RIGHT RADIAL, Blood Gas Patient Temperature 98.1, Arterial Blood pH 7.43, Arterial Blood Partial Pressure CO2 44, Arterial Blood Partial Pressure O2 66, Arterial Blood HCO3 29, Arterial Blood Total CO2 30.2, Arterial Blood Oxygen Saturation 94, Arterial Blood Base Excess 4.6, Elbert Test POSITIVE, Blood Gas Ventilator Setting NO, Blood Gas Inspired Oxygen ROOM AIR 12/10/18 21:02: Glucometer 172 12/11/18 06:14: Glucometer 158 12/11/18 11:08: Glucometer 197 12/11/18 16:14: Glucometer 144 12/11/18 21:39: Glucometer 144 12/12/18 06:20: Glucometer 170 12/12/18 11:13: Glucometer 144 12/12/18 16:04: Glucometer 157 12/12/18 21:21: Glucometer 174 12/13/18 06:12: Glucometer 154 12/13/18 11:33: Glucometer 133 12/13/18 16:28: Glucometer 175 12/13/18 21:07: Glucometer 174 12/14/18 05:52: Glucometer 174 12/14/18 10:58: Glucometer 149 12/14/18 16:10: Glucometer 156 12/14/18 20:59: Glucometer 174 12/15/18 06:06: Glucometer 163 12/15/18 11:18: Glucometer 187 12/15/18 15:23: Glucometer 133 12/15/18 21:01: Glucometer 189 12/16/18 05:06: White Blood Count 5.1, Red Blood Count 4.04, Hemoglobin 12.7, Hematocrit 39, Mean Corpuscular Volume 96, Mean Corpuscular Hemoglobin 31, Mean Corpuscular Hemoglobin Concent 33, Red Cell Distribution Width 13.8, Platelet Count 198, Mean Platelet Volume 10.4, Neutrophils (%) (Auto) 48, Lymphocytes (%) (Auto) 40 , Monocytes (%) (Auto) 10, Eosinophils (%) (Auto) 2, Basophils (%) (Auto) 1, Neutrophils # (Auto) 2.4, Lymphocytes # (Auto) 2.0, Monocytes # (Auto) 0.5, Eosinophils # (Auto) 0.1, Basophils # (Auto) 0.0, Sodium Level 138, Potassium Level 2.9, Chloride Level 98, Carbon Dioxide Level 27, Anion Gap 13, Blood Urea Nitrogen 12, Creatinine 0.73, Estimat Glomerular Filtration Rate > 60, BUN/ Creatinine Ratio 16, Glucose Level 166, Calcium Level 9.6, Corrected Calcium 9.7 , Total Bilirubin 0.5, Aspartate Amino Transf (AST/SGOT) 19, Alanine Aminotransferase (ALT/SGPT) 21, Alkaline Phosphatase 53, Total Protein 6.6, Albumin 3.9 12/16/18 11:55: Glucometer 154 12/16/18 16:51: Glucometer 161 12/16/18 21:02: Glucometer 185 12/17/18 05:57: Glucometer 199 12/17/18 10:36: Glucometer 164 12/17/18 15:53: Glucometer 211 12/17/18 21:23: Glucometer 182 12/18/18 05:48: Glucometer 187 12/18/18 10:49: Glucometer 188 12/18/18 16:00: Glucometer 161 12/18/18 20:22: Glucometer 167 12/19/18 05:06: Glucometer 182 12/19/18 11:26: Glucometer 164 12/19/18 16:48: Glucometer 155 12/19/18 20:46: Glucometer 216 12/20/18 05:51: Glucometer 195 12/20/18 11:39: Glucometer 167 12/20/18 15:55: Glucometer 211 12/20/18 20:45: Glucometer 170 12/21/18 05:24: Glucometer 171 12/21/18 11:01: Glucometer 169 12/21/18 15:57: Glucometer 165 12/21/18 20:34: Glucometer 198 12/22/18 05:08: Glucometer 197 12/22/18 11:25: Glucometer 161 12/22/18 15:59: Glucometer 218 12/22/18 22:06: Glucometer 203 12/23/18 04:10: White Blood Count 6.0, Red Blood Count 4.10, Hemoglobin 13.1, Hematocrit 40, Mean Corpuscular Volume 97, Mean Corpuscular Hemoglobin 32, Mean Corpuscular Hemoglobin Concent 33, Red Cell Distribution Width 14.2, Platelet Count 234, Mean Platelet Volume 10.5, Neutrophils (%) (Auto) 48, Lymphocytes (%) (Auto) 41 , Monocytes (%) (Auto) 9, Eosinophils (%) (Auto) 3, Basophils (%) (Auto) 1, Neutrophils # (Auto) 2.8, Lymphocytes # (Auto) 2.4, Monocytes # (Auto) 0.5, Eosinophils # (Auto) 0.2, Basophils # (Auto) 0.0, Sodium Level 140, Potassium Level 3.3, Chloride Level 100, Carbon Dioxide Level 27, Anion Gap 13, Blood Urea Nitrogen 17, Creatinine 0.80, Estimat Glomerular Filtration Rate > 60, BUN/ Creatinine Ratio 21, Glucose Level 170, Calcium Level 9.6, Corrected Calcium 9.6 , Total Bilirubin 0.5, Aspartate Amino Transf (AST/SGOT) 24, Alanine Aminotransferase (ALT/SGPT) 25, Alkaline Phosphatase 52, Total Protein 6.9, Albumin 4.0 12/23/18 11:25: Glucometer 220 12/23/18 16:20: Glucometer 174 12/23/18 20:36: Glucometer 260 12/24/18 06:02: Glucometer 177 12/24/18 11:44: Glucometer 164 12/24/18 16:34: Glucometer 164 12/24/18 21:10: Glucometer 200 12/25/18 05:28: Glucometer 174 12/25/18 11:11: Glucometer 165 12/25/18 16:33: Glucometer 172 12/25/18 21:02: Glucometer 212 12/26/18 06:30: Glucometer 173 12/26/18 11:04: Glucometer 164 12/26/18 16:25: Glucometer 183 12/26/18 20:36: Glucometer 186 12/27/18 05:28: Glucometer 156 12/27/18 11:33: Glucometer 149 12/27/18 17:06: Glucometer 159 12/27/18 21:12: Glucometer 210 12/28/18 06:16: Glucometer 167 12/28/18 10:51: Glucometer 171 12/28/18 16:57: Glucometer 151 12/28/18 21:19: Glucometer 260 12/29/18 05:22: Glucometer 167 12/29/18 10:43: Glucometer 164 12/29/18 15:35: Glucometer 158 12/29/18 21:56: Glucometer 221 12/30/18 06:21: Glucometer 155 12/30/18 11:17: Glucometer 163 12/30/18 16:06: Glucometer 158 12/30/18 21:11: Glucometer 191 12/31/18 05:15: Glucometer 164 12/31/18 11:44: Glucometer 128 12/31/18 16:50: Glucometer 163 12/31/18 21:18: Glucometer 194 01/01/19 06:22: Glucometer 157 01/01/19 11:35: Glucometer 134 01/01/19 16:24: Glucometer 159 01/01/19 20:51: Glucometer 194 01/02/19 05:49: Glucometer 166 01/02/19 10:59: Glucometer 134 01/02/19 16:01: Glucometer 169 Discharge Home Medications: Active Scripts Active Aspirin EC (Aspirin) 81 Mg Tablet.dr 81 Mg PO DAILY 365 Days Atorvastatin Calcium 20 Mg Tablet 20 Mg PO HS Hydrocodone-Acetamin 7.5-325 (Hydrocodone/Acetaminophen) 1 Each Tablet 1 Tab PO Q6H PRN Reported Tylenol Extra Strength (Acetaminophen) 500 Mg Tablet 1,000 Mg PO BID TAKES 2 (500MG) TABLETS Pioglitazone HCl 30 Mg Tablet 15 Mg PO HS TAKES 1/2 (30MG) TABLET Amlodipine Besylate 10 Mg Tablet 10 Mg PO DAILY Omeprazole 20 Mg Capsule.dr 20 Mg PO DAILY Pioglitazone HCl 30 Mg Tablet 30 Mg PO DAILY Triamterene-Hctz 37.5-25 mg Cp (Triamterene/Hydrochlorothiazid) 1 Each Capsule 1 Cap PO DAILY Celecoxib 100 Mg Capsule 100 Mg PO BID Levothyroxine Sodium 50 Mcg Tablet 50 Mcg PO DAILY Instructions to patient/family Please see electronic discharge instructions given to patient. Diagnosis/Problems Diagnosis/Problems (1) Acute right SKI LIFT OPERATOR stroke (2) DVT prophylaxis (3) Hyperglyceridemia (4) Hypokalemia (5) Weakness of left side of body (6) Difficulty speaking (7) Dysphagia (8) STEPH on CPAP (9) Non-insulin dependent type 2 diabetes mellitus Status: Chronic (10) Essential (primary) hypertension Status: Chronic (11) Obesity (12) Hypothyroidism Status: Chronic Clinical Quality Measures DVT/VTE Risk/Contraindication: Risk Factor Score Per Nursin RFS Level Per Nursing on Admit: 4+=Very High LOREN MILLER DO Jan 02, 2019 08:13
[2019-01-02] MEDS: DOCUSATE SODIUM 100 MG (COLACE) CAP PO SCH (08:26)
[2019-01-02] MEDS: PIOGLITAZONE 30MG (ACTOS) TAB PO SCH (08:26)
[2019-01-02] MEDS: PANTOPRAZOLE 20 MG TABLET (PROTONIX) PO SCH (08:26)
[2019-01-02] MEDS: CELECOXIB 100 MG (CeleBREX) CAP PO SCH (08:26)
[2019-01-02] MEDS: ASPIRIN E.C. 81 MG (ECOTRIN) TAB PO SCH (08:26)
[2019-01-02] MEDS: amLODIPine 10 MG (NORVASC) TAB PO SCH (08:27)
[2019-01-02] MEDS: TRIAMTERENE/HCTZ 75-50 (MAXZIDE,DYAZIDE) TABLET PO SCH (08:27)
[2019-01-02] MEDS: ENOXAPARIN 40 MG/0.4 ML (LOVENOX) SYR SC SCH (08:30)
--- NOTE | 2019-01-02 10:19 | Occupational Ther Daily Note ---
OT Current Status-Daily Note Subjective No pain reported. Appearance Pt. sitting on bed. Had just finished showering with nursing supervision. OT took over session for dressing. Mental Status/Objective Patient Orientation: Person, Place, Time, Situation Therapy Code Descriptions/Definitions Functional [place] Measure: 0=Not Assessed/NA 4=Minimal Assistance 1=Total Assistance 5=Supervision or Setup 2=Maximal Assistance 6=Modified [place] 3=Moderate Assistance 7=Complete [place] ADL-Treatment Therapy Code Descriptions/Definitions Functional [place] Measure: 0=Not Assessed/NA 4=Minimal Assistance 1=Total Assistance 5=Supervision or Setup 2=Maximal Assistance 6=Modified [place] 3=Moderate Assistance 7=Complete [place] Therapy Quality Codes: 6 Independent with activity with or without an assistive device 5 Patient requires set up or clean up by helper. Patient completes activity by themselves 4 Supervision or touching assist (CGA). [place] provide cues , steadying assist 3 The helper provides less than half the effort to complete the activity 2 The helper provides more than half the effort to complete the activity 1 Dependent. The helper does all the effort to complete an activity 7 Patient refused to complete or attempt activity 9 The patient did not perform the activity before the current illness or injury 88 Not attempted due to Medical conditions or safety concerns Upper Body (FIM): 5 (Set up) Upper Body Dressing (QC): 5 Lower Body Dressing (FIM): 5 Lower Body Dressing (QC): 5 On/Off Footwear (QC): 5 Transfers (B, C, W/C) (FIM): 6 Other Treatment After dressing, pt. transferred to wheelchair with Mod I. All needs met in room. Education OT Patient Education: Modified ADL techniques, Progress toward Goal/Update tx plan, Purpose of tx/functional activities, Reviewed precautions, Rehab process, Transfer techniques Teaching Recipient: Patient Teaching Methods: Demonstration, Discussion Response to Teaching: Verbalize Understanding, Return Demonstration OT Short Term Goals Short Term Goals Time Frame: Dec 11, 2018 Upper Body Dressing(FIM): 3 Lower Body Dressing(FIM): 3 Toileting(FIM): 3 Toilet/Commode Transfer(FIM): 3 Additional Short Term Goals: 1-Demonstrate ADL Tasks, 2-Verbalize Understanding , 3-ImproveStrength/Angelita 1=Demonstrate adherence to instructed precautions during ADL tasks. 2=Patient will verbalize/demonstrate understanding of assistive devices/ modifications for ADL. 3=Patient will improve strength/tolerance for activity to enable patient to perform ADL's. OT Fci Goals Fci Goals Time Frame: Dec 28, 2018 Eating (FIM): 6 Eating (QC): 6 Groomin Oral Hygiene (QC): 6 Bathing(FIM): 4 Shower/Bathe Self (QC): 4 Upper Body Dressing(FIM): 5 Upper Body Dressing (QC): 5 Lower Body Dressing(FIM): 5 Lower Body Dressing (QC): 5 On/Off Footwear (QC): 5 Toileting(FIM): 5 Toileting Hygiene (QC): 5 Toilet/Commode Transfer(FIM): 5 Toilet/Commode Transfer (QC): 5 Shower Transfer(FIM): 5 Additional Goals: 1-Demonstrate ADL Tasks, 2-Verbalize Understanding, 3- ImproveStrength/Angelita 1=Demonstrate adherence to instructed precautions during ADL tasks. 2=Patient will verbalize/demonstrate understanding of assistive devices/ modifications for ADL. 3=Patient will improve strength/tolerance for activity to enable patient to perform ADL's. OT Education/Plan Problem List/Assessment Assessment: Decreased Activ Tolerance Discharge Recommendations Plan/Recommendations: Continue POC Therapy D/C Recommendations: Home w/ Family Support, Occupational Therapy Home Care Equpiment Recommendations-D/C: Hip Kit Comment Pt. has new wheelchair and vanesa cane. Treatment Plan/Plan of Care Treatment,Training & Education: Yes Patient would benefit from OT for education, treatment and training to promote independence in ADL's, mobility, safety and/or upper extremity function for ADL' s. Plan of Care: ADL Retraining, Functional Mobility, Group Exercise/Act as Ind, UE Funct Exercise/Act, UE Neuromus Re-Ed/Coord Treatment Duration: Dec 28, 2018 Frequency: At least 5 of 7 days/Wk (IRF) Estimated Hrs Per Day: 1.5 hours per day Agreement: Yes Rehab Potential: Good Time/GCodes Start Time: 09:45 Stop Time: 10:10 Total Time Billed (hr/min): 25 Billed Treatment Time 1, ADL x 2 CHELI LOPEZ OT Jan 02, 2019 10:19
--- NOTE | 2019-01-02 10:25 | Therapy Team Discharge Summary ---
Therapy Discharge Summary Discharge Recommendations Date of Discharge 01-02-19 Therapy D/C Recommendations: Home w/ Family Support, Occupational Therapy Home Care Occupational Therapy Pt. has been seen by occupational therapy to increase overall strength and independence. Pt. has met all goals. Does require set up for bathing and dressing, but will have family support. Pt. has been educated in kitchen and laundry tasks, as well as safety at home. Pt verbalizes understanding. Recommend home health OT. Pt. would benefit from hip kit. Decreased Activ Tolerance PT Care Advocate Goals Care Advocate Goals PT Care Advocate Goals Time Frame: Dec 25, 2018 Transfers (B,C,W/C) (FIM): 4 (met) Roll Left to Right (QC): 3 (met) Sit to Lying (QC): 3 (met) Lying-Sitting on Side/Bed(QC): 3 (met) Sit to Stand (QC): 3 (met) Chair/Uob-dl-Wqmxy Xfer(QC): 3 (met) Car Transfer (QC): 3 (met) Gait (FIM): 2 (met) Distance: 50' Walk 10 feet (QC): 3 (met) Walk 10ft-Uneven Surface(QC): 3 (met) Walk 50ft with 2 Turns (QC): 3 (met) Walk 150 ft (QC): 3 (met) Gait Level of Assist: 4 (met) Gait Assistive Device: Walker Robby Stairs (FIM): 1 # of Steps: 1 1 Step (curb) (QC): 3 Stairs Level Of Assist: 4 OT Care Advocate Goals Care Home Goals Time Frame: Dec 28, 2018 Eating (FIM): 6 (met) Eating (QC): 6 (met) Oral Hygiene (QC): 6 (met) Grooming(FIM): 6 (met) Bathing(FIM): 4 (met) Shower/Bathe Self (QC): 4 (met) Upper Body Dressing(FIM): 5 (met) Upper Body Dressing (QC): 5 (met) Lower Body Dressing(FIM): 5 (met) Lower Body Dressing (QC): 5 (met) On/Off Footwear (QC): 5 (met) Toileting(FIM): 5 (met) Toileting Hygiene (QC): 5 (met) Toilet/Commode Transfer(FIM): 5 (met) Toilet/Commode Transfer (QC): 5 (met) Shower Transfer(FIM): 5 (met) Additional Goals: 1-Demonstrate ADL Tasks, 2-Verbalize Understanding, 3- ImproveStrength/Angelita 1=Demonstrate adherence to instructed precautions during ADL tasks. 2=Patient will verbalize/demonstrate understanding of assistive devices/ modifications for ADL. 3=Patient will improve strength/tolerance for activity to enable patient to perform ADL's. Speech Care Advocate Goals Care Home Goals Patient will maintain adequate nutrition/hydration via safe effective swallow function. Continue CHELI LOPEZ OT Jan 02, 2019 10:25
--- NOTE | 2019-01-02 10:32 | Therapy Team Discharge Summary ---
Therapy Discharge Summary Discharge Recommendations Date of Discharge Therapy D/C Recommendations: Home w/ Family Support, Occupational Therapy Home Care Physical Therapy Patient came to rehab following a CVA. Upon evaluation patient performed bed mobility with mod assist, supine to sit with max assist, sit to stand with mod assist, and transfers with max assist, car transfers max assist, ambulated 8' in the parallel bars with max assist, no stair at that time. Patient has been performing bed mobility and transfer training, balance and endurance training, functional strengthening, stair training, gait training, and education. Patient has made good progress and has met all of her usp goals except for stairs. Now, patient performs bed mobility with mod I, supine <-> sit with mod I, sit <-> stand with mod I, transfers with mod I, car transfers mod I, ambulates 200' with a hemiwalker with mod I (including 50' with at least 2 turns of 90 degrees but needs SBA when ambulating 10' over an uneven surface), attempted to go up and down just one step and could get her right foot on the step but could not step up. Patient is discharging from this facility today and will be discharged from PT at this time. Occupational Therapy Decreased Activ Tolerance PT Biology Tutor Goals Fdc Goals PT Fdc Goals Time Frame: Dec 25, 2018 Transfers (B,C,W/C) (FIM): 4 (met) Roll Left to Right (QC): 3 (met) Sit to Lying (QC): 3 (met) Lying-Sitting on Side/Bed(QC): 3 (met) Sit to Stand (QC): 3 (met) Chair/Zja-ev-Tejmz Xfer(QC): 3 (met) Car Transfer (QC): 3 (met) Gait (FIM): 2 (met) Distance: 50' Walk 10 feet (QC): 3 (met) Walk 10ft-Uneven Surface(QC): 3 (met) Walk 50ft with 2 Turns (QC): 3 (met) Walk 150 ft (QC): 3 (met) Gait Level of Assist: 4 (met) Gait Assistive Device: Walker Robby Stairs (FIM): 1 # of Steps: 1 1 Step (curb) (QC): 3 Stairs Level Of Assist: 4 OT Fdc Goals Biology Tutor Goals Time Frame: Dec 28, 2018 Eating (FIM): 6 (met) Eating (QC): 6 (met) Oral Hygiene (QC): 6 (met) Grooming(FIM): 6 (met) Bathing(FIM): 4 (met) Shower/Bathe Self (QC): 4 (met) Upper Body Dressing(FIM): 5 (met) Upper Body Dressing (QC): 5 (met) Lower Body Dressing(FIM): 5 (met) Lower Body Dressing (QC): 5 (met) On/Off Footwear (QC): 5 (met) Toileting(FIM): 5 (met) Toileting Hygiene (QC): 5 (met) Toilet/Commode Transfer(FIM): 5 (met) Toilet/Commode Transfer (QC): 5 (met) Shower Transfer(FIM): 5 (met) Additional Goals: 1-Demonstrate ADL Tasks, 2-Verbalize Understanding, 3- ImproveStrength/Angelita 1=Demonstrate adherence to instructed precautions during ADL tasks. 2=Patient will verbalize/demonstrate understanding of assistive devices/ modifications for ADL. 3=Patient will improve strength/tolerance for activity to enable patient to perform ADL's. Speech Fdc Goals Biology Tutor Goals Patient will maintain adequate nutrition/hydration via safe effective swallow function. Continue MEGHAN DYER PT Jan 02, 2019 10:32
[2019-01-02] MEDS: TROLAMINE (ASPERCREME) 10% CR 90 GM TUBE TOP SCH (10:47)
--- NOTE | 2019-01-02 11:48 | Speech Therapy Daily Note ---
Speech Daily Progress Note Subjective Date Seen by Provider: Jan 02, 2019 Time Seen by Provider: 00:30 The patient was happy to be going home today. Objective Patient consumed her drink with utilization of compensatory strategies as trained. No verbal cues were needed. Assessment Assessment Current Status: Excellent Progress Treatment Plan Discontinue ST, Goals Met Communication Comprehension: 7 Expression: 7 Social Cognition Social Interaction: 7 Problem Solvin Memory: 7 Speech Short Term Goals Short Term Goals Short Term Goals 1) Patient will utilize compensatory strategies as trained for safe oral intake of the least restrictive diet with 90% or greater. Continue 2) Patient will demonstrate safe oral intake of the least restrictive diet level with 90% or greater. Continue Speech Senior Electronics Engineer Goals Custodial Goals Patient will maintain adequate nutrition/hydration via safe effective swallow function. Continue Speech-Plan Patient/Family Goals Patient/Family Goals: The patient is returning home today with family support. Treatment Plan Speech Therapy Treatment Plan: Discontinue ST, Goals Met The patient has made excellent progress as a result of skilled therapy. Treatment Duration: Jan 02, 2019 Frequency: 5 times per week Estimated Hrs Per Day: .5 hour per day Rehab Potential: Good Barriers to Learning: Recent CVA Pt/Family Agrees to Plan: Yes Safety Risks/Education Teaching Recipient: Patient Teaching Methods: Demonstration, Discussion Response to Teaching: Verbalize Understanding, Return Demonstration Education Topics Provided: Safety of oral intake when she returns home. Time Speech Therapy Time In: 11:00 Speech Therapy Time Out: 11:30 Total Billed Time: 30 Billed Treatment Time 1, MONTY Dean Jan 02, 2019 11:48
--- NOTE | 2019-01-02 16:00 | NUR ---
THREAD GRINDER TOOL met with patient to review IMM and patient choice letter for home health services. Patient continues to verbalize no concerns with discharge plan and is eager to return home. Patient's granddaughter will provide transportation. THREAD GRINDER TOOL confirmed that Dr. Renaldo Banegas will accept as new referral and will follow home health services through [facility] [place]. please see discharge summary for further information.
[2019-01-02 17:12] VITALS: BP 150/71
--- NOTE | 2019-01-03 08:02 | Therapy Team Discharge Summary ---
Therapy Discharge Summary Discharge Recommendations Date of Discharge Jan 02, 2019 at 16:30 Therapy D/C Recommendations: Home w/ Family Support, Occupational Therapy Home Care Occupational Therapy Decreased Activ Tolerance Speech-Language Pathology The patient was admitted to the ARU post CVA for preparation to return home. The patient initially was seen by ST for dysphagia and was placed initially on a Dysphagia II diet level. She progressed well and learned the compensatory strategies for safe oral intake. She was able to upgrade to a Dysphagia I level with thin liquids. The patient was discharged to home on 01/02/19 with all goals met. She is discharged from skilled ST at this time. PT Cv/Cvn Cv Tsc System Operator Goals Halfway Goals PT Halfway Goals Time Frame: Dec 25, 2018 Transfers (B,C,W/C) (FIM): 4 (met) Roll Left to Right (QC): 3 (met) Sit to Lying (QC): 3 (met) Lying-Sitting on Side/Bed(QC): 3 (met) Sit to Stand (QC): 3 (met) Chair/Uqh-nu-Eeigb Xfer(QC): 3 (met) Car Transfer (QC): 3 (met) Gait (FIM): 2 (met) Distance: 50' Walk 10 feet (QC): 3 (met) Walk 10ft-Uneven Surface(QC): 3 (met) Walk 50ft with 2 Turns (QC): 3 (met) Walk 150 ft (QC): 3 (met) Gait Level of Assist: 4 (met) Gait Assistive Device: Walker Robby Stairs (FIM): 1 # of Steps: 1 1 Step (curb) (QC): 3 Stairs Level Of Assist: 4 OT Halfway Goals Halfway Goals Time Frame: Dec 28, 2018 Eating (FIM): 6 (met) Eating (QC): 6 (met) Oral Hygiene (QC): 6 (met) Grooming(FIM): 6 (met) Bathing(FIM): 4 (met) Shower/Bathe Self (QC): 4 (met) Upper Body Dressing(FIM): 5 (met) Upper Body Dressing (QC): 5 (met) Lower Body Dressing(FIM): 5 (met) Lower Body Dressing (QC): 5 (met) On/Off Footwear (QC): 5 (met) Toileting(FIM): 5 (met) Toileting Hygiene (QC): 5 (met) Toilet/Commode Transfer(FIM): 5 (met) Toilet/Commode Transfer (QC): 5 (met) Shower Transfer(FIM): 5 (met) Additional Goals: 1-Demonstrate ADL Tasks, 2-Verbalize Understanding, 3- ImproveStrength/Angelita 1=Demonstrate adherence to instructed precautions during ADL tasks. 2=Patient will verbalize/demonstrate understanding of assistive devices/ modifications for ADL. 3=Patient will improve strength/tolerance for activity to enable patient to perform ADL's. Speech Cv/Cvn Cv Tsc System Operator Goals Halfway Goals Patient will maintain adequate nutrition/hydration via safe effective swallow function. Met MONTY PIMENTEL Jan 03, 2019 08:02
== END 2019-01-02 16:30 | disposition home health service (06) | DRG 57 ==
PROVIDERS: ADMIT Internal Medicine; ATTEND Internal Medicine
DX: I69.354 Hemiplegia and hemiparesis following cerebral infarction affecting left non-dominant side (principal); I69.321 Dysphasia following cerebral infarction; I69.391 Dysphagia following cerebral infarction; R13.12 Dysphagia, oropharyngeal phase; I69.392 Facial weakness following cerebral infarction; E11.65 Type 2 diabetes mellitus with hyperglycemia; G47.33 Obstructive sleep apnea (adult) (pediatric); I10 Essential (primary) hypertension; E78.5 Hyperlipidemia, unspecified; E78.1 Pure hyperglyceridemia; K21.9 Gastro-esophageal reflux disease without esophagitis; E03.9 Hypothyroidism, unspecified; E87.6 Hypokalemia; E66.9 Obesity, unspecified; Z68.42 Body mass index [BMI] 45.0-49.9, adult; M79.7 Fibromyalgia; M54.9 Dorsalgia, unspecified; M19.90 Unspecified osteoarthritis, unspecified site; M25.532 Pain in left wrist
CPT/HCPCS: 36415; 36600; 73100; 80053; 82805; 82962; 83036; 85025; 90471; 90686; 94640; 94660; 94760

== ENCOUNTER 2019-01-07 20:24 | Outpatient (CLI) | payer MEDICARE, BC | END 2019-01-08 07:37 | disposition home or self-care (01) | LOC: SLEEP 20:24 | PROVIDERS: ATTEND Nurse Practitioner Family | DX: G47.33 Obstructive sleep apnea (adult) (pediatric) (principal); I63.9 Cerebral infarction, unspecified; R06.00 Dyspnea, unspecified | CPT/HCPCS: 95811 ==

== ENCOUNTER → 2019-05-14 | Outpatient (RCR) | payer MEDICARE, BC ==
[~2019-05-14] MED LIST changes: -OMEP20CA12 PO; +OMEP20CA13 PO
== END | disposition home or self-care (01) ==
PROVIDERS: ATTEND Family Medicine
DX: I69.354 Hemiplegia and hemiparesis following cerebral infarction affecting left non-dominant side (principal)

== ENCOUNTER → 2019-07-15 | Outpatient (CLI) | payer MEDICARE, BC ==
[~2019-07-15] MED LIST changes: +RT-ALBUTEROL SULF 2.5 MG/3 ML PRE-MIX VIAL INH ONE; +RT-ALBUTEROL SULF 2.5 MG/3 ML PRE-MIX VIAL ONE
== END ==
LOC: RT 14:30
PROVIDERS: ATTEND Nurse Practitioner Family
DX: I63.9 Cerebral infarction, unspecified (principal); G47.33 Obstructive sleep apnea (adult) (pediatric)
CPT/HCPCS: 94060; 94726; 94729

== ENCOUNTER → 2019-07-16 | Outpatient (CLI) | payer MEDICARE, BC ==
[~2019-07-16] MED LIST changes: -RT-ALBUTEROL SULF 2.5 MG/3 ML PRE-MIX VIAL INH ONE; -RT-ALBUTEROL SULF 2.5 MG/3 ML PRE-MIX VIAL ONE
[2019-07-16 09:06] LABS: BASOPHILS % (AUTO) 1 % (0-10); EOSINOPHILS # (AUTO) 0.1 10^3/uL (0.0-0.3); EOSINOPHILS % (AUTO) 2 % (0-10); HEMATOCRIT 43 % (35-52); HEMOGLOBIN 13.7 G/DL (11.5-16.0); LYMPHOCYTES % (AUTO) 31 % (12-44); MEAN CORPUSCULAR HEMOGLOBIN 31 PG (25-34); MEAN CORPUSCULAR HGB CONC 32 G/DL (32-36); MEAN CORPUSCULAR VOLUME 97 FL (80-99); MEAN PLATELET VOLUME 10.2 FL (7.4-10.4); MONOCYTES # (AUTO) 0.6 X 10^3 (0.0-1.0); MONOCYTES % (AUTO) 9 % (0-12); NEUTROPHILS # (AUTO) 3.8 X 10^3 (1.8-7.8); NEUTROPHILS % (AUTO) 59 % (42-75); PLATELET COUNT 226 10^3/uL (130-400); RED CELL DISTRIBUTION WIDTH 13.5 % (10.0-14.5); WHITE BLOOD COUNT 6.5 10^3/uL (4.3-11.0)
[2019-07-16 09:27] LABS: ALBUMIN 4.5 GM/DL (3.2-4.5); BILIRUBIN,TOTAL 0.7 MG/DL (0.1-1.0); CALCIUM 9.7 MG/DL (8.5-10.1); CREATININE SERUM 0.98 MG/DL (0.60-1.30); POTASSIUM 4.2 MMOL/L (3.6-5.0); TOTAL PROTEIN 7.4 GM/DL (6.4-8.2)
== END ==
LOC: LAB 08:44
PROVIDERS: ATTEND Family Medicine
DX: E11.9 Type 2 diabetes mellitus without complications (principal); I10 Essential (primary) hypertension
CPT/HCPCS: 36415; 80053; 80061; 83036; 85025

== ENCOUNTER → 2019-07-16 | Outpatient (CLI) | payer MEDICARE, BC ==
[~2019-07-16] MED LIST changes: +CATHETER FLUSH 10 ML SYR IV PRN; +HOLD METFORMIN - RECEIVED CONTRAST 20 ML VIAL IV SCH; +IOHEXOL 350 MG/ML 100 ML (OMNIPAQUE 350) VIAL IV ONE; +NS 100 ML (IVPB) BAG IV ONE
--- NOTE | 2019-07-16 09:49 | Diagnostic Imaging Report ---
PROCEDURE: US Venous Lower Ext Slava. INDICATION: Bilateral leg swelling. TECHNIQUE: Grayscale with color-flow and Doppler waveform evaluation of the bilateral lower extremity deep venous systems. CORRELATION STUDY: None FINDINGS: Color and grayscale sonographic images demonstrate no intraluminal defect within the visualized portion of the common femoral, superficial femoral and/or popliteal veins to suggest thrombus formation. These vessels demonstrate normal response to compression and augmentation. No soft tissue fluid collection. IMPRESSION: 1. Negative for deep venous thrombosis of either leg. Dictated by: Dictated on workstation # [id number]
--- NOTE | 2019-07-16 10:03 | Diagnostic Imaging Report ---
CLINICAL INDICATION: Patient with leg swelling and abnormal PFTs. Patient getting ready for surgery and evaluating lungs. EXAM: CT angiogram of the chest performed with 125 cc Omnipaque 350 IV contrast. Coronal and oblique MIP images of the vasculature were created to better evaluate anatomy. Auto Exposure Controls were utilized during the CT exam to meet ALARA standards for radiation dose reduction. COMPARISON: Chest x-ray dated 11/30/2018. FINDINGS: There is no evidence of pulmonary embolism. There is no thoracic aortic dissection or aneurysm. There is mild motion artifact which obscures some portions of the lung [place]. There is mild dependent atelectasis involving the posterior aspects of both lower lobes. There are small parenchymal bands involving the lingula and middle lobe lung base regions which may represent atelectasis versus scarring. There are small calcified granuloma in the right lung base measuring roughly 4 mm. There is no pleural effusion or pneumothorax. Right perihilar calcified lymph nodes are noted. There is no mediastinal or axillary lymphadenopathy. The thyroid gland shows no significant abnormality. There are calcified granulomas involving the spleen and liver. The remainder of the visualized upper abdominal structures is unremarkable. There are degenerative spurs involving the thoracic spine and visualized lumbar spine. IMPRESSION: 1. There is no evidence of pulmonary embolism, thoracic aortic aneurysm, or thoracic aortic dissection. 2. There is mild bilateral lung atelectasis. There are small parenchymal bands in the lingula and middle lobe basilar regions which may represent atelectasis or scarring. 3. Granulomatous disease with right inferior perihilar calcified lymph node and right lower lobe calcified granuloma. There are calcified granulomas in the liver and spleen. Dictated by: Dictated on workstation # [id number]
== END ==
LOC: RAD 08:49
PROVIDERS: ATTEND Nurse Practitioner Family
DX: J84.10 Pulmonary fibrosis, unspecified (principal); K75.3 Granulomatous hepatitis, not elsewhere classified; D73.89 Other diseases of spleen; J98.11 Atelectasis; G47.33 Obstructive sleep apnea (adult) (pediatric); I63.9 Cerebral infarction, unspecified; M79.89 Other specified soft tissue disorders; R59.0 Localized enlarged lymph nodes
CPT/HCPCS: 71275; 93970

== ENCOUNTER 2019-08-13 14:48 | Outpatient (RCR) | payer MEDICARE, BC ==
[~2019-08-13 14:48] MED LIST changes: -CATHETER FLUSH 10 ML SYR IV PRN; -HOLD METFORMIN - RECEIVED CONTRAST 20 ML VIAL IV SCH; -IOHEXOL 350 MG/ML 100 ML (OMNIPAQUE 350) VIAL IV ONE; -NS 100 ML (IVPB) BAG IV ONE
== END 2019-08-14 | disposition home or self-care (01) ==
PROVIDERS: ATTEND Family Medicine
DX: I69.354 Hemiplegia and hemiparesis following cerebral infarction affecting left non-dominant side (principal)

== ENCOUNTER 2019-08-21 14:17 | Outpatient (RCR) | payer MEDICARE, BC | END 2019-08-23 14:51 | disposition home or self-care (01) | PROVIDERS: ATTEND Family Medicine | DX: I63.9 Cerebral infarction, unspecified (principal); I10 Essential (primary) hypertension; M81.0 Age-related osteoporosis without current pathological fracture; E11.9 Type 2 diabetes mellitus without complications; H26.9 Unspecified cataract ==

== ENCOUNTER → 2020-04-13 | Outpatient (CLI) | payer MEDICARE, BC ==
[~2020-04-13] MED LIST changes: +HYDR-34 PO; -HYDR-3816 PO; -OMEP20CA13 PO; +OMEP20CA18 PO
--- NOTE | 2020-04-13 18:03 | Diagnostic Imaging Report ---
INDICATION: Lump on lateral right flank TECHNIQUE: Multiple real time gonzalez scale sonographic images were obtained of the soft tissue right flank region. CORRELATION STUDY: None FINDINGS: Imaging of the area of palpable concern demonstrates normal appearing soft tissue echotexture to be present. The fascial planes appear to be unremarkable. No concerning solid or cystic mass lesion. IMPRESSION: 1.Unremarkable superficial soft tissue ultrasound examination of the right lateral flank region. Dictated by: Dictated on workstation # [id number]
== END ==
LOC: RAD 14:23
PROVIDERS: ATTEND Family Medicine
DX: R19.09 Other intra-abdominal and pelvic swelling, mass and lump (principal)
CPT/HCPCS: 76999

== ENCOUNTER → 2020-04-20 | Outpatient (CLI) | payer MEDICARE, BC ==
--- NOTE | 2020-04-20 15:34 | Diagnostic Imaging Report ---
PROCEDURE: CT abdomen and pelvis without contrast. TECHNIQUE: Multiple contiguous axial images were obtained through the abdomen and pelvis without the use of intravenous contrast. Auto Exposure Controls were utilized during the CT exam to meet ALARA standards for radiation dose reduction. INDICATION: Right-sided abdominal pain. COMPARISON: No prior studies are available for comparison. FINDINGS: The lung bases are clear. The liver is unremarkable apart from calcified granulomas. No biliary ductal dilatation is seen. The gallbladder appears to be surgically absent. The pancreas and spleen are unremarkable. No adrenal mass is detected. The kidneys are without calculi or hydronephrosis. The aorta is nonaneurysmal. There are shotty lymph nodes in the central retroperitoneum. The small and large bowel loops are of normal caliber. There is no obstruction. There are occasional diverticuli within the sigmoid and descending colon but no evidence of acute diverticulitis. No free fluid or fluid collection is identified. The partially filled urinary bladder is unremarkable. The uterus appears to be surgically absent. No definite pelvic lymphadenopathy is seen. There are small lymph nodes in the left iliac location. The bony structures appear nonacute. IMPRESSION: 1. Uncomplicated diverticulosis. 2. No acute feature within the abdomen or pelvis is identified. Dictated by: Dictated on workstation # [id number]
== END ==
LOC: RAD 14:58
PROVIDERS: ATTEND Family Medicine
DX: K57.30 Diverticulosis of large intestine without perforation or abscess without bleeding (principal); R19.00 Intra-abdominal and pelvic swelling, mass and lump, unspecified site
CPT/HCPCS: 74176

== ENCOUNTER 2020-11-04 13:56 | Outpatient (RCR) | payer MEDICARE, BC ==
[~2020-11-04 13:56] MED LIST changes: +AMLO-251 PO; -AMLO10TA7 PO; +ASPI-1238 PO; -ASPI-983 PO
== END 2020-11-18 16:00 | disposition home or self-care (01) ==
PROVIDERS: ATTEND Internal Medicine Infectious Disease
DX: I89.0 Lymphedema, not elsewhere classified (principal); L03.116 Cellulitis of left lower limb; E11.9 Type 2 diabetes mellitus without complications; I10 Essential (primary) hypertension; Z86.73 Personal history of transient ischemic attack (TIA), and cerebral infarction without residual deficits

== ENCOUNTER → 2021-09-17 | Outpatient (CLI) | payer MEDICARE, BC ==
[~2021-09-17] MED LIST changes: -SULF1TAB35 PO; +SULF1TAB38 PO
[2021-09-17 14:33] LABS: BASOPHILS % (AUTO) 1 % (0-10); EOSINOPHILS # (AUTO) 0.1 10^3/uL (0.0-0.3); EOSINOPHILS % (AUTO) 2 % (0-10); HEMATOCRIT 42 % (35-52); HEMOGLOBIN 13.7 g/dL (11.5-16.0); LYMPHOCYTES # (AUTO) 1.8 X 10^3 (1.0-4.0); LYMPHOCYTES % (AUTO) 26 % (12-44); MEAN CORPUSCULAR HEMOGLOBIN 32 pg (25-34); MEAN CORPUSCULAR HGB CONC 33 g/dL (32-36); MEAN CORPUSCULAR VOLUME 96 fL (80-99); MEAN PLATELET VOLUME 9.8 fL (9.0-12.2); MONOCYTES # (AUTO) 0.6 X 10^3 (0.0-1.0); MONOCYTES % (AUTO) 8 % (0-12); NEUTROPHILS # (AUTO) 4.3 X 10^3 (1.8-7.8); NEUTROPHILS % (AUTO) 63 % (42-75); PLATELET COUNT 208 10^3/uL (130-400); WHITE BLOOD COUNT 6.8 10^3/uL (4.3-11.0)
[2021-09-17 14:53] LABS: ALBUMIN 3.8 GM/DL (3.2-4.5); BILIRUBIN,TOTAL 0.8 MG/DL (0.1-1.0); CALCIUM 9.5 MG/DL (8.5-10.1); CREATININE SERUM 0.95 MG/DL (0.60-1.30); MAGNESIUM 1.8 MG/DL (1.6-2.4); POTASSIUM 3.8 MMOL/L (3.6-5.0); TOTAL PROTEIN 6.8 GM/DL (6.4-8.2)
--- NOTE | 2021-09-17 14:57 | Diagnostic Imaging Report ---
Indication: Cough and shortness of breath. TIME OF EXAM: 2:50 PM FINDINGS: The heart size is normal. The pulmonary vascularity is unremarkable. The lungs are clear. No infiltrate, effusion or pneumothorax is detected. IMPRESSION: No acute cardiopulmonary process is detected. Dictated by: Dictated on workstation # [id number]
== END ==
LOC: RAD 14:01
PROVIDERS: ATTEND Family Medicine
DX: E11.9 Type 2 diabetes mellitus without complications (principal); R05.9 Cough, unspecified; R06.02 Shortness of breath; R53.83 Other fatigue; R25.2 Cramp and spasm
CPT/HCPCS: 36415; 71046; 80053; 83036; 83735; 85025

== ENCOUNTER → 2021-09-23 | Outpatient (CLI) | payer MEDICARE, BC | LOC: RAD 14:50 | PROVIDERS: ATTEND Family Medicine | DX: K21.9 Gastro-esophageal reflux disease without esophagitis (principal); Z86.19 Personal history of other infectious and parasitic diseases | CPT/HCPCS: 36415; 86677 ==

== ENCOUNTER 2021-10-03 14:35 | Emergency (ER) | payer MEDICARE, BC ==
[~2021-10-03] VITALS: Ht 167 cm; Wt 125.0 kg
[2021-10-03 14:46] VITALS: BP 174/105
--- NOTE | 2021-10-03 15:33 | ED Lower Extremity ---
General Chief Complaint: Lower Extremity Stated Complaint: BILAT FEET SWELLING/NUMBNESS Nursing Triage Note: PT STATES SHE WANTS HER RT FOOT CHECKED OUT FOR A BLOOD CLOT. RED ON THE FOOT, PAIN IN TOES, AND RED UP PAST THE ANKLE. LEGS STARTED TO SWELL ABOUT 3 DAYS AGO, RT FOOT WAS 2 DAYS AGO. History of Present Illness Date Seen by Provider: Oct 03, 2021 Time Seen by Provider: 15:10 Initial Comments 70 year old type 2 diabetic presents with 3-4 day history of increased swelling in right foot and ankle. She has never had a DVT in her LEs. She had CVA in 2019. She takes Aspirin daily but no anti-coagulants. She recently stopped her hydrochlorothiazide on 09/23/2021 because of concerns with interactions for a new medication that she started with her diabetes, Jardiance. She wears a CHEMA hose on her left leg from CVA but not on right leg. She sleeps with her legs elevated on wedge, but does not elevate them during the day. She can't take Lasix because of allergy to Potassium supplements. Onset: other (3-4 days) Pain/Injury Location: right foot, right ankle Allergies and Home Medications Allergies Coded Allergies: cinnamon (Verified Allergy, Severe, 11/29/18) DIFFICULTY BREATHING, ASTHMA ATTACK PER PATIENT MYRTLE Inhibitors (Unverified Allergy, Unknown, 06/16/15) Beta-Blockers (Beta-Adrenergic Bloc (Unverified Allergy, Unknown, 06/16/15) Jllwulx-Hud-Izn Reductase Inhibitor (Unverified Allergy, Unknown, Myalgia, 12/04/18) tolerating atorvastatin 20mg 3.5.19 floxacillin (Unverified Allergy, Unknown, 06/16/15) potassium chloride (Unverified Allergy, Unknown, 06/16/15) Uncoded Allergies: EYE DROPS (Allergy, Unknown, 06/16/15) Patient Home Medication List Home Medication List Reviewed: Yes Acetaminophen (Tylenol Extra Strength) 500 Mg Tablet, 1,000 MG PO BID, (Reported) Entered as Reported by: JESSICA CUEVA on 11/29/18 1331 Amlodipine Besylate (Amlodipine Besylate) 10 Mg Tablet, 10 MG PO DAILY, (Reported) Entered as Reported by: RUKHSANA BUCHANAN on 06/16/15 192 Aspirin (Aspirin EC) 81 Mg Tablet., 81 MG PO DAILY Prescribed by: LOREN MILLER on 01/02/19810 Atorvastatin Calcium (Atorvastatin Calcium) 20 Mg Tablet, 20 MG PO HS Prescribed by: LOREN MILLER on 01/02/19810 Celecoxib (Celecoxib) 100 Mg Capsule, 100 MG PO BID, (Reported) Entered as Reported by: RUKHSANA BUCHANAN on 06/16/151928 Hydrocodone Bit/Acetaminophen (HYDROcodone/APAP 7.5/325 TAB) 1 Each Tablet, 1 TAB PO Q6H PRN for PAIN-MODERATE Prescribed by: LOREN MILLER on 01/02/19810 Levothyroxine Sodium (Levothyroxine Sodium) 50 Mcg Tablet, 50 MCG PO DAILY, (Reported) Entered as Reported by: RUKHSANA BUCHANAN on 06/16/151928 Omeprazole (Omeprazole) 20 Mg Capsule.dr, 20 MG PO DAILY, (Reported) Entered as Reported by: RUKHSANA BUCHANAN on 06/16/151928 Pioglitazone HCl (Pioglitazone HCl) 30 Mg Tablet, 30 MG PO DAILY, (Reported) Entered as Reported by: RUKHSANA BUCHANAN on 06/16/151928 Pioglitazone HCl (Pioglitazone HCl) 30 Mg Tablet, 15 MG PO HS, (Reported) Entered as Reported by: JESSICA CUEVA on 11/29/18 1331 Triamterene/Hydrochlorothiazid (Triamterene-Hctz 37.5-25 mg Cp) 1 Each Capsule, 1 CAP PO DAILY, (Reported) Entered as Reported by: RUKHSANA BUCHANAN on 06/16/151928 Review of Systems Constitutional: no symptoms reported, see HPI Musculoskeletal: see HPI, other (swelling Right foot) Skin: see HPI, other (patient reports mild erythema to right foot, none present at time of ED presenation) All Other Systems Reviewed Negative Unless Noted: Yes Past Dnkfqbj-Beerks-Hjoqqq Hx Patient Social History Tobacco Use?: No Substance use?: No Alcohol Use?: No Immunizations Up To Date Tetanus Booster (TDap): More than 5yrs Past Medical History Surgeries: Yes (lypoma(toe, thigh, neck), SPHINCTERECTOMY 11/22/18) Appendectomy, Breast, Eye Surgery, Gallbladder, Hysterectomy, Orthopedic Respiratory: Yes Sleep Apnea Currently Using CPAP: Yes Cardiac: Yes High Cholesterol, Hypertension Neurological: No Stroke Reproductive Disorders: Yes CREW BOSS History: Hysterectomy Gastrointestinal: Yes Gastroesophageal Reflux Musculoskeletal: No Arthritis, Fibromyalgia, Chronic Back Pain Endocrine: Yes Hypothyroidsim, Diabetes, Non-Insulin dep Cataract, Glaucoma Cancer: No Psychosocial: No Integumentary: No Blood Disorders: No Family Medical History Reviewed Nursing Family Hx No Pertinent Family Hx, Hypertension Physical Exam Vital Signs Vital Signs - First Documented 10/03/21 14:46 Temp 36.7 Pulse 99 Resp 20 B/P (MAP) 174/105 (128) Pulse Ox 96 O2 Delivery Room Air Capillary Refill : Less Than 3 Seconds Height, Weight, BMI Height: 5'6.00" Weight: 289lbs. 0.0oz. 131.770154or; 44.00 BMI Method:Stated General Appearance: WD/WN, no apparent distress, obese Neck: non-tender, full range of motion, supple, normal inspection Cardiovascular: normal peripheral pulses (2+ pedal pulses right LE), regular rate, rhythm Respiratory: chest non-tender, lungs clear, normal breath sounds Gastrointestinal: normal bowel sounds, non tender, soft, distended Ankles: right ankle non-tender, right ankle normal inspection, right ankle normal range of motion, right ankle no evidence of injury, right ankle swelling (1+ non-pitting. ), right ankle other (varicose veins noted to bilat LEs) Feet: right foot non-tender, right foot normal inspection, right foot normal range of motion, right foot swelling (1+ non-pitting), right foot other (cap refill < 3 sec. No erythema or warmth. Small skin tag to plantar surface at base of 2nd toe, non-tender. ) Neurologic/Tendon: normal sensation, normal motor functions, normal tendon functions Neurologic/Psychiatric: no motor/sensory deficits, alert, normal mood/affect, oriented x 3 Skin: normal color, warm/dry Lymphatic: no adenopathy Neg Jitendra's Right LE. Progress/Results/Core Measures Results/Orders Lab Results Laboratory Tests Test 10/03/21 15:14 Range/Units White Blood Count 7.8 4.3-11.0 10^3/uL Red Blood Count 4.11 3.80-5.11 10^6/uL Hemoglobin 13.2 11.5-16.0 g/dL Hematocrit 41 35-52 % Mean Corpuscular Volume 100 H 80-99 fL Mean Corpuscular Hemoglobin 32 25-34 pg Mean Corpuscular Hemoglobin Concent 32 32-36 g/dL Red Cell Distribution Width 13.7 10.0-14.5 % Platelet Count 196 130-400 10^3/uL Mean Platelet Volume 10.3 9.0-12.2 fL Immature Granulocyte % (Auto) 0 % Neutrophils (%) (Auto) 75 42-75 % Lymphocytes (%) (Auto) 14 12-44 % Monocytes (%) (Auto) 8 0-12 % Eosinophils (%) (Auto) 2 0-10 % Basophils (%) (Auto) 1 0-10 % Neutrophils # (Auto) 5.9 1.8-7.8 10^3/uL Lymphocytes # (Auto) 1.1 1.0-4.0 10^3/uL Monocytes # (Auto) 0.6 0.0-1.0 10^3/uL Eosinophils # (Auto) 0.1 0.0-0.3 10^3/uL Basophils # (Auto) 0.0 0.0-0.1 10^3/uL Immature Granulocyte # (Auto) 0.0 0.0-0.1 10^3/uL D-Dimer 0.33 0.00-0.49 UG/ML Sodium Level 142 135-145 MMOL/L Potassium Level 3.7 3.6-5.0 MMOL/L Chloride Level 106 98-107 MMOL/L Carbon Dioxide Level 23 21-32 MMOL/L Anion Gap 13 5-14 MMOL/L Blood Urea Nitrogen 11 7-18 MG/DL Creatinine 0.72 0.60-1.30 MG/DL Estimat Glomerular Filtration Rate 80 BUN/Creatinine Ratio 15 Glucose Level 266 H 70-105 MG/DL Calcium Level 9.1 8.5-10.1 MG/DL Corrected Calcium 9.3 8.5-10.1 MG/DL Total Bilirubin 0.6 0.1-1.0 MG/DL Aspartate Amino Transf (AST/SGOT) 21 5-34 U/L Alanine Aminotransferase (ALT/SGPT) 24 0-55 U/L Alkaline Phosphatase 61 40-136 U/L C-Reactive Protein High Sensitivity 0.39 0.00-0.50 MG/DL B-Type Natriuretic Peptide 43.9 <100.0 PG/ML Total Protein 6.8 6.4-8.2 GM/DL Albumin 3.8 3.2-4.5 GM/DL My Orders Orders - RAOUL,JAVON [employer]ER Fibrin Degradation Products (10/03/21 15:02) Bnp Kadi (10/03/21 15:27) Cbc With Automated Diff (10/03/21 15:27) Comprehensive Metabolic Panel (10/03/21 15:27) Hs C Reactive Protein (10/03/21 15:27) Furosemide Tablet (Lasix Tablet) (10/03/21 15:55) Vital Signs/I&O 10/03/21 14:46 Temp 36.7 Pulse 99 Resp 20 B/P (MAP) 174/105 (128) Pulse Ox 96 O2 Delivery Room Air Blood Pressure Mean: 128 Progress Progress Note : Time: 15:10 Progress Note Patient seen and evaluated, will obtain labs and reevaluate. 1600 Normal D-Dimer, Glucose elevated at 266, patient reports eating a bologna sandwich right before coming. K+ 3.6, will give Lasix 20 mg po. Discussed following up with primary care provider, could consider giving the hydrochlorothiazide every other day. Stressed importance of elevating her legs throughout the day. Applied a knee-high CHEMA hose to the right lower extremity to help with swelling. Discharge instructions and return precautions reviewed with the patient. Departure Impression Primary Impression: Swelling of right foot Additional Impressions: Type 2 diabetes mellitus Qualified Codes: E11.9 - Type 2 diabetes mellitus without complications Hyperglycemia Disposition: HOME, SELF-CARE Condition: Stable Departure-Patient Inst. Decision time for Depature: 15:55 Referrals: KJ ABDULLAHI MD (PCP/Family) Primary Care Physician Patient Instructions: Dependent Edema (DC), Type 2 Diabetes (DC) Add. Discharge Instructions: Wear the support hose on both legs. There were no indications on your assessment or labs for a Blood Clot in your legs or infection in your right foot. Continue Aspirin daily. Elevate both legs on your wedge for 15 to 20 minutes twice daily. Talk with Dr. Abdullahi about resuming your hydrochlorothiazide. Check your blood sugar 2-3 times daily and report findings to Dr. Abdullahi. Return to the emergency department for new, urgent healthcare needs. All discharge instructions reviewed with patient and/or family. Voiced understanding. Copy Copies To 1: KJ ABDULLAHI MD, AMY ARNP Oct 03, 2021 15:33
[2021-10-03 15:38] LABS: BASOPHILS % (AUTO) 1 % (0-10); EOSINOPHILS # (AUTO) 0.1 10^3/uL (0.0-0.3); EOSINOPHILS % (AUTO) 2 % (0-10); HEMATOCRIT 41 % (35-52); HEMOGLOBIN 13.2 g/dL (11.5-16.0); LYMPHOCYTES # (AUTO) 1.1 10^3/uL (1.0-4.0); LYMPHOCYTES % (AUTO) 14 % (12-44); MEAN CORPUSCULAR HEMOGLOBIN 32 pg (25-34); MEAN CORPUSCULAR HGB CONC 32 g/dL (32-36); MEAN CORPUSCULAR VOLUME 100 fL (80-99); MEAN PLATELET VOLUME 10.3 fL (9.0-12.2); MONOCYTES # (AUTO) 0.6 10^3/uL (0.0-1.0); MONOCYTES % (AUTO) 8 % (0-12); NEUTROPHILS # (AUTO) 5.9 10^3/uL (1.8-7.8); NEUTROPHILS % (AUTO) 75 % (42-75); PLATELET COUNT 196 10^3/uL (130-400); WHITE BLOOD COUNT 7.8 10^3/uL (4.3-11.0)
[2021-10-03 15:41] LABS: ALBUMIN 3.8 GM/DL (3.2-4.5); POTASSIUM 3.7 MMOL/L (3.6-5.0)
[2021-10-03 15:42] LABS: CALCIUM 9.1 MG/DL (8.5-10.1)
[2021-10-03 15:43] LABS: TOTAL PROTEIN 6.8 GM/DL (6.4-8.2)
[2021-10-03 15:45] LABS: BILIRUBIN,TOTAL 0.6 MG/DL (0.1-1.0)
[2021-10-03 15:47] LABS: CREATININE SERUM 0.72 MG/DL (0.60-1.30)
[2021-10-03] MEDS ORDERED: FUROSEMIDE 20 MG (LASIX) TAB PO STA (15:55)
== END 2021-10-03 16:32 | disposition home or self-care (01) ==
LOC: EDUNIT# 14:35 → ER 14:37
DX: M79.89 Other specified soft tissue disorders (principal); E11.65 Type 2 diabetes mellitus with hyperglycemia; I10 Essential (primary) hypertension; G47.30 Sleep apnea, unspecified; E78.00 Pure hypercholesterolemia, unspecified; E03.9 Hypothyroidism, unspecified; K21.9 Gastro-esophageal reflux disease without esophagitis; G89.29 Other chronic pain; M54.9 Dorsalgia, unspecified; Z86.73 Personal history of transient ischemic attack (TIA), and cerebral infarction without residual deficits; Z79.890 Hormone replacement therapy; Z79.82 Long term (current) use of aspirin; Z79.891 Long term (current) use of opiate analgesic; Z79.899 Other long term (current) drug therapy
CPT/HCPCS: 36415; 80053; 83880; 85025; 85379; 86141

== ENCOUNTER → 2022-01-21 | Outpatient (CLI) | payer MEDICARE, BC ==
[2022-01-21 12:34] LABS: BASOPHILS % (AUTO) 1 % (0-10); EOSINOPHILS # (AUTO) 0.2 10^3/uL (0.0-0.3); EOSINOPHILS % (AUTO) 3 % (0-10); HEMATOCRIT 42 % (35-52); HEMOGLOBIN 13.2 g/dL (11.5-16.0); LYMPHOCYTES # (AUTO) 1.6 10^3/uL (1.0-4.0); LYMPHOCYTES % (AUTO) 25 % (12-44); MEAN CORPUSCULAR HEMOGLOBIN 31 pg (25-34); MEAN CORPUSCULAR HGB CONC 32 g/dL (32-36); MEAN CORPUSCULAR VOLUME 97 fL (80-99); MEAN PLATELET VOLUME 10.1 fL (9.0-12.2); MONOCYTES # (AUTO) 0.4 10^3/uL (0.0-1.0); MONOCYTES % (AUTO) 7 % (0-12); NEUTROPHILS # (AUTO) 4.2 10^3/uL (1.8-7.8); NEUTROPHILS % (AUTO) 65 % (42-75); PLATELET COUNT 202 10^3/uL (130-400); WHITE BLOOD COUNT 6.4 10^3/uL (4.3-11.0)
[2022-01-21 12:53] LABS: BILIRUBIN,TOTAL 0.7 MG/DL (0.1-1.0); CALCIUM 9.4 MG/DL (8.5-10.1); CREATININE SERUM 0.87 MG/DL (0.60-1.30); POTASSIUM 3.9 MMOL/L (3.6-5.0); TOTAL PROTEIN 6.8 GM/DL (6.4-8.2)
[2022-01-21 13:14] LABS: FREE T4 (FREE THYROXINE) 1.11 NG/DL (0.70-1.48)
--- NOTE | 2022-01-21 17:31 | Diagnostic Imaging Report ---
INDICATION: Palpable fullness. 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 No sonographic abnormality. This is most often associated with lipomatous lesions inseparable from regional subcutaneous fat; however, as we cannot confirm a benign explanation for the palpable abnormality consider CT or MRI through the affected region as further evaluation. Dictated by: Dictated on workstation # [id number]
== END ==
LOC: RAD 12:30
PROVIDERS: ATTEND Family Medicine
DX: E11.9 Type 2 diabetes mellitus without complications (principal); D17.79 Benign lipomatous neoplasm of other sites; I10 Essential (primary) hypertension; R53.83 Other fatigue
CPT/HCPCS: 36415; 76881; 80053; 83036; 84439; 84443; 85025

== ENCOUNTER → 2022-02-01 | Outpatient (CLI) | payer MEDICARE, BC ==
--- NOTE | 2022-02-01 18:09 | Diagnostic Imaging Report ---
PROCEDURE: CT neck soft tissue without contrast. TECHNIQUE: Multiple contiguous axial images were obtained through the neck without the use of intravenous contrast. Auto Exposure Controls were utilized during the CT exam to meet ALARA standards for radiation dose reduction. INDICATION: Palpable fullness in the left supraclavicular fossa. Correlation made with a CT angiogram of the chest from July 16, 2019. FINDINGS: By CT imaging, there is mild prominence of the normal fat planes within the supraclavicular fossae of the neck bilaterally. There are numerous tiny nodules throughout this process most compatible with tiny lymph nodes. By CT criteria, there are no pathologically enlarged cervical or supraclavicular lymph nodes demonstrated. The intracranial contents demonstrate no findings of mass effect or hydrocephalus. The orbital contents demonstrate prior ocular lens replacement. The paranasal sinuses demonstrate a left maxillary mucous retention cyst and are otherwise clear. The middle ears and mastoids appear clear. The posterior nasopharynx and oropharynx appear appropriately symmetric. There are no findings of displacement of the parapharyngeal fat planes. There is no abnormal process evident within the prevertebral or retropharyngeal space. There is a retropharyngeal course of the carotid arteries. The base of the tongue appears symmetric. There are no findings to suggest thickening of the epiglottis. There is aeration of the vallecula and the piriform sinuses. The vocal folds appear symmetric without widening of the anterior commissure. The thyroid is unremarkable. The subglottic trachea appears normal. The bilateral parotid glands are mildly prominent without focal abnormality. The submandibular glands are unremarkable. There are no findings of ductal dilatation, adjacent inflammation or radiodense sialolith. There are atherosclerotic calcifications at the left carotid bifurcation. The lung apices appear clear. Cervical spine demonstrates normal alignment. There are multilevel endplate changes and facet arthropathy which are most advanced at C5-C6 and C6-C7. There is no acute or suspicious cervical spine abnormality. IMPRESSION: 1. There is prominent fat demonstrated within the bilateral supraclavicular fossa, slightly more prominent on the left. Throughout the these fat planes, there are numerous tiny non-pathologically enlarged lymph nodes. There is no dominant or definable solid soft tissue mass. 2. The aerodigestive tract appears appropriately symmetric. 3. No inflammatory fat stranding, fluid collection or pathologic adenopathy evident. Dictated by: Dictated on workstation # [id number]
== END ==
LOC: RAD 15:15
PROVIDERS: ATTEND Family Medicine
DX: R59.0 Localized enlarged lymph nodes (principal); R29.898 Other symptoms and signs involving the musculoskeletal system
CPT/HCPCS: 70490